=== PATIENT | female | born 1940 | race Caucasian/White ===

== ENCOUNTER → 2016-10-15 | Outpatient (CLI) | payer OTHER, MEDICARE ==
[~2016-10-15] MED LIST: ASCA500 PO; ASPEC81 PO; CHOL100010 PO; CLTP PO; COEN100C15 PO; FLUR100T PO; FOLI5CAP PO; HYDR25TA4 PO; LPT/40 PO; METH2.5T PO; METO50TA7 PO; MULT-506 PO; PRED-301 PO; RIVA1TAB4 PO; RQP/5 PO; TRAM-453 PO; XRL15 PO
--- NOTE | 2016-10-15 12:10 | MAMMOGRAPHY REPORT ---
BILATERAL DIGITAL SCREENING MAMMOGRAM WITH CAD: 10/15/2016 CLINICAL HISTORY: Routine screening. Patient has no complaints. TECHNIQUE: Bilateral CC and MLO views were obtained. Current study was also evaluated with a Compute r Aided Detection (CAD) system. COMPARISON: Comparison is made to exams dated: 10/14/2015 mammogram, 10/10/2014 mammogram, 10/09/2013 m ammogram, 10/05/2012 mammogram, 10/05/2011 mammogram, and 10/01/2010 mammogram - [facility] ter. BREAST COMPOSITION: The tissue of both breasts is heterogeneously dense, which may obscure small mas ses. FINDINGS: There is an asymmetry in the upper outer middle to posterior right breast, for which addit ional spot compression Devonte indicis views and possibly ultrasound are recommended, although this co uld represent normal overlapping tissue. There are mild vascular calcifications bilaterally. A linear metallic density is again seen in the l ower inner right breast. No other suspicious mass, architectural distortion or cluster of microcalci fications is seen bilaterally. IMPRESSION: ACR BI-RADS CATEGORY 0: INCOMPLETE EVALUATION: NEED ADDITIONAL IMAGING EVALUATION The asymmetry in the right upper outer breast needs additional imaging evaluation. The patient will be called to schedule an appointment. Approximately 10% of breast cancers are not detected with mammography. A negative mammographic report should not delay biopsy if a clinically suggestive mass is present. Dina Bernal M.D. ay/:10/15/2016 09:02:48 Interior Block Wirer: Nighat MCBRIDE(R)(M), [facility] letter sent: Addl Imaging 0 BI-RADS Code: ACR BI-RADS Category 0: Incomplete Evaluation: Need Additional Imaging Evaluation
== END | disposition home or self-care (01) ==
LOC: C.MAMM 08:26
PROVIDERS: ATTEND Family Medicine
DX: Z12.31 Encounter for screening mammogram for malignant neoplasm of breast (principal)

== ENCOUNTER → 2016-10-26 | Outpatient (CLI) | payer OTHER, MEDICARE ==
--- NOTE | 2016-10-26 14:05 | MAMMOGRAPHY REPORT ---
UNILATERAL RIGHT DIGITAL DIAGNOSTIC MAMMOGRAM TOMOSYNTHESIS AND TARGETED RIGHT ULTRASOUND: 10/26/2016 CLINICAL HISTORY: 75-year-old woman called back from screening mammography for an asymmetry in the up per outer quadrant of the right breast. TECHNIQUE: Spot compression right CC and MLO 2-D and tomosynthesis images were obtained. COMPARISON: Comparison is made to exams dated: 10/15/2016 mammogram, 10/10/2014 mammogram, 10/14/2015 m ammogram, 10/09/2013 mammogram, 10/05/2012 mammogram, and 10/05/2011 mammogram - [facility]. BREAST COMPOSITION: The tissue of the right breast is heterogeneously dense, which may obscure small masses. FINDINGS: There is effacement of the asymmetry in the lateral right breast in the superior right [address] st on the supplemental spot compression views and corresponding tomosynthesis images. In the visuali zed right breast, there is no focal area of architectural distortion, persistent mass or suspicious m icrocalcifications. A linear metallic density is again seen in the lower inner quadrant. Targeted ultrasound was performed throughout the superior and lateral right breast. Normal fibroglan dular tissue is seen without a discrete solid or cystic mass. IMPRESSION: ACR BI-RADS CATEGORY 2: BENIGN, TARGETED ULTRASOUND ACR BI-RADS CATEGORY 2: BENIGN Effacement of the right breast asymmetry, and no suspicious sonographic correlate identified. There is no mammographic or targeted sonographic evidence of malignancy. Return to annual mammogram screeni ng schedule is recommended. The patient has been verbally notified of the results. Approximately 10% of breast cancers are not detected with mammography. A negative mammographic report should not delay biopsy if a clinically suggestive mass is present. Dina Bernal M.D. ay/:10/26/2016 10:05:54 Cloth Colors Examiner: Nighat MCBRIDE(Kimber)(Deya), [facility] letter sent: Normal 1/2 BI-RADS Code: ACR BI-RADS Category 2: Benign Ultrasound BI-RADS: ACR BI-RADS Category 2: Benign
== END | disposition home or self-care (01) ==
LOC: C.MAMM 09:25
PROVIDERS: ATTEND Family Medicine
DX: N64.89 Other specified disorders of breast (principal)

== ENCOUNTER → 2017-10-20 | Outpatient (CLI) | payer OTHER, MEDICARE ==
[~2017-10-20] MED LIST changes: -METO50TA7 PO; +METO50TA8 PO
--- NOTE | 2017-10-21 07:55 | MAMMOGRAPHY REPORT ---
BILATERAL DIGITAL SCREENING MAMMOGRAM TOMOSYNTHESIS WITH CAD: 10/20/2017 CLINICAL HISTORY: Routine screening. TECHNIQUE: The study was acquired using full field digital technology and interpreted from soft copy. Breast tomosynthesis in addition to standard 2D mammography was performed. Current study was also ev aluated with a Computer Aided Detection (CAD) system. COMPARISON: Comparison is made to exams dated: 10/26/2016 mammogram, 10/15/2016 mammogram, 10/14/2015 m ammogram, and 10/10/2014 mammogram - [facility]. BREAST COMPOSITION: The tissue of both breasts is heterogeneously dense, which may obscure small mass es. FINDINGS: There are stable postsurgical changes in the lower inner right breast, with expected dalton ectural distortion and a linear metallic density remaining in the posterior right lower inner quadran t. There is stable asymmetry in the lateral right breast. Minimal vascular calcification bilaterall y. No suspicious mass, architectural distortion or cluster of microcalcifications is seen. IMPRESSION: ACR BI-RADS CATEGORY 1: NEGATIVE There is no mammographic evidence of malignancy. A 1 year screening mammogram is recommended.( 019) The patient will receive written notification of the results. Some breast cancers are not detected with mammography. A negative mammographic report should not joselito y biopsy if a clinically suggestive mass is present. Dina Bernal M.D. ay/:10/20/2017 09:29:06 Support Director: RT Naresh(Kimber)(M), [facility] letter sent: Normal 1/2 BI-RADS Code: ACR BI-RADS Category 1: Negative
== END | disposition home or self-care (01) ==
LOC: C.MAMM 08:18
PROVIDERS: ATTEND Family Medicine
DX: Z12.31 Encounter for screening mammogram for malignant neoplasm of breast (principal)

== ENCOUNTER 2017-11-03 08:29 | Emergency (ER) | payer OTHER, MEDICARE ==
[~2017-11-03] VITALS: Ht 149.9 cm; Wt 74.4 kg
[2017-11-03 08:33] VITALS: TEMP 36.7; Ht 149.9 cm; Wt 74.4 kg
[2017-11-03] MEDS ORDERED: MAGIC SWIZZLE PO STA (08:49)
--- NOTE | 2017-11-03 08:54 | EMERGENCY ROOM VISIT NOTE ---
History Report prepared by Tiffani: Toñito Donaldson Under the Supervision of: Dr. Ammon Brown M.D. First contact with patient: 08:40 Chief Complaint: FACIAL PAIN/INJURY Stated Complaint: COLD SORES History of Present Illness The patient is a 76 year old female who presents to the Emergency Room with complaints of worsening pain around her lips and the corners over her mouth that began on Wednesday, 5 days ago. The patient notes that her pain is worsened by trying to open her mouth. She also notes a headache, but denies any fevers. The patient does mention that she was at [facility] over the weekend and did not "wash her hands as much as she should have." Source of History: patient Onset: 5 days ago Position: lip Timing: worsening Modifying Factors (Worsening): other (opening her mouth) Associated Symptoms: + headache, No fevers Review of Systems See HPI for pertinent positives & negatives. A total of 10 systems reviewed and were otherwise negative. Past Medical & Surgical Medical Problems: (1) GERD (gastroesophageal reflux disease) (2) HLD (hyperlipidemia) (3) Palpitations (4) Pulmonary embolism (5) Rheumatoid arthritis (6) RLS (restless legs syndrome) Surgical Problems: (1) H/O colonoscopy (2) H/O knee surgery (3) H/O laminectomy (4) History of carpal tunnel surgery (5) S/P CHANNING-BSO Family History Heart disease Social History Smoking Status: Never Smoker Alcohol Use: none Drug Use: none Marital Status: Housing Status: lives with family Occupation Status: retired Current/Historical Medications Scheduled Ascorbic Acid (Vitamin C *), 1,000 MG PO BID Aspirin Enteric Coated (Ecotrin Or Generic *), 81 MG PO DAILY Atorvastatin (Lipitor), 40 MG PO DAILY Calcium/Vitamin D (Caltrate 600 Plus *), 1 TAB PO BID Cholecalciferol (Vitamin D), 1,000 INTER.UNIT PO DAILY Coenzyme Q10 (Ubidecarenone) (Co Q10), 1 CAP PO DAILY Flurbiprofen (Ansaid), 100 MG PO PRN Folic Acid (Folic Acid), 5 MG PO DAILY Hydrochlorothiazide (Hctz), 25 MG PO DAILY PRN Magic Swizzle (Magic Swizzle - SUCRALFA/ALUM/MAG/DIPHEN/LIDO), 3-4 TSP PO ACHS Methotrexate (Methotrexate), 7 TABLETS PO WK Metoprolol Succ (Toprol Xl) (Toprol-Xl), 50 MG PO DAILY Multivitamin (Multivitamin), 1 TAB PO DAILY Prednisone (Prednisone), 5 MG PO DAILY Rivaroxaban (Xarelto), 15 MG PO BID Rivaroxaban (Xarelto), 20 MG PO DAILY Ropinirole Hydrochloride (Requip), 0.25 MG PO HS Scheduled PRN Tramadol Hcl (Ultram), 1 TAB PO Q6H PRN for Pain Allergies Coded Allergies: Penicillins (Verified Allergy, Mild, RASH, 02/06/16) Baclofen (Verified Allergy, Unknown, DIZZY, 02/06/16) Sulfa Drugs (Verified Allergy, Unknown, HEADACHE, 02/06/16) Physical Exam Vital Signs Date Time Temp Pulse Resp B/P (MAP) Pulse Ox O2 Delivery O2 Flow Rate FiO2 11/03/17 09:22 67 18 160/82 96 Room Air 11/03/17 08:33 36.7 82 18 144/81 98 Room Air Physical Exam GENERAL: Awake, alert, well-appearing, in no acute distress HENT: Normocephalic, atraumatic. There are ulcerations to the inside of her lips , this does not cross beyond the lip itself. There are no oral lesions noted. EYES: Normal conjunctiva. Sclera non-icteric. NECK: Supple. No nuchal rigidity. FROM. No JVD. RESPIRATORY: Clear to auscultation. CARDIAC: Regular rate, normal rhythm. Extremities warm and well perfused. Pulses equal. ABDOMEN: Soft, non-distended. No tenderness to palpation. No rebound or guarding. No masses. RECTAL: Deferred. MUSCULOSKELETAL: Chest examination reveals no tenderness. The back is symmetrical on inspection without obvious abnormality. There is no CVA tenderness to palpation. No joint edema. LOWER EXTREMITIES: Calves are equal size bilaterally and non-tender. No edema. No discoloration. NEURO: Normal sensorium. No sensory or motor deficits noted. SKIN: No rash or jaundice noted. Medical Decision & Procedures Medications Administered Medications (Trade) Dose Ordered Sig/Harlan Route Start Time Stop Time Status Last Admin Dose Admin Lidocaine HCl/ Diphenhydramine HCl/Al Hydroxide/ Mg Hydroxide/ Glycerin/Barcode NOW ONCE MT 11/03/17 09:15 11/03/17 09:16 DC 11/03/17 09:22 5 ML ED Course 0843: Past medical records reviewed. The patient was evaluated in room A12B. A complete history and physical examination was performed. After examination I discussed my findings and treatment plan with the patient. She expressed agreement and understanding. The patient will be discharged home with specific instructions. Medical Decision Prior records/ancillary studies reviewed. Triage Nursing notes reviewed. Differential diagnosis: Etiologies such as viral syndrome, pharyngitis, Jose Luis Rodrigue's, influenza, meningitis, sepsis, bacteremia, as well as others were entertained. This is a 76-year-old female who presents emergency department complaining of rash to her lips. The patient has several crusted lesions present at her lips they do not cross the vermilion border. She has no rash to her hands or her feet. Discussing her presentation with the patient I noted I do not feel that this is Kovacs-Rodrigue syndrome however I strongly cautioned her she needs to return to the emergency department if the rash appears to be spreading and involves more of her oral mucosa. The patient is on methotrexate which could cause a Kovacs-Rodrigue. I otherwise suspect this is most likely a viral illness the patient reports she was at [facility] in [place] with her when this broke out several days later. She denies any stridor or wheezing or any other symptoms. We are going to trial the patient on Magic swizzle I again strongly recommended the patient return to the emergency department if the rash worsens. She is going to follow-up with her primary care physician. Medication Reconcilliation Current Medication List: was personally reviewed by me Blood Pressure Screening Patient's blood pressure: Elevated blood pressure Blood pressure disposition: Elevated BP felt to be situational Impression Primary Impression: Rash and nonspecific skin eruption Scribe Attestation The scribe's documentation has been prepared under my direction and personally reviewed by me in its entirety. I confirm that the note above accurately reflects all work, treatment, procedures, and medical decision making performed by me. Departure Information Dispostion Home / Self-Care Prescriptions Magic Swizzle (Magic Swizzle - SUCRALFA/ALUM/MAG/DIPHEN/LIDO) 240 Ml Susp 3-4 TSP PO ACHS, #240 ML 100ml Sucralfate 50ml Maalox 50ml Diphenhydramine 40ml 2% Aq. Lidocaine Swish and Swallow Prov: Ammon Brown MD 11/03/17 Referrals Shannon Malcolm M.D. (PCP) Forms HOME CARE DOCUMENTATION FORM, IMPORTANT VISIT INFORMATION Patient Instructions My [facility] Additional Instructions Follow up with DR Malcolm's office It is important that the exact type of rash is diagnosed by a doctor as the treatment can vary to some extent. For both contact dermatitis and perioral dermatitis, all topical applications should be stopped immediately. With contact dermatitis this may be sufficient for the rash to resolves quickly without any medical treatment. However, in perioral dermatitis the rash may sometimes continue even with discontinuing all creams, cosmetics and even soaps. Contact dermatitis is only treated when the symptoms are severe and not resolving with conservative measures. Corticosteroid creams may be prescribed for use on the skin. However, these creams should be avoided entirely in perioral dermatitis and there is often a history of abusing these creams. In severe cases of contact dermatitis oral corticosteroids may be considered for short term use until the symptoms ease. Perioral dermatitis is treated with antibiotics when the condition does not resolve with stopping all skin applications. A substance known as pimecrolimus may also be prescribed and this is also sometimes used in contact dermatitis. Isotretinoin, a drug that is more often used for acne, may also be prescribed for severe cases of perioral dermatitis but only when other measures have failed. It is important for perioral dermatitis sufferers to be aware that the condition can last for months or years without treatment. Even after the dermatitis subsides, skin applications may need to continue being avoided for an indefinite period of time. Sometimes what seems like extreme measures may need to be implemented like avoiding fluoridated toothpaste. It is important to follow a doctors advice closely when it comes to the treatment of perioral dermatitis. Scratching, pinching or picking the area can lead to secondary bacterial infections in both contact dermatitis and perioral dermatitis. It is therefore important that these actions be avoided and the hands be kept clean as much as possible in the even of unconscious touching of the affected area. Kovacs-Rodrigue syndrome signs and symptoms include: Fever Unexplained widespread skin pain A red or purple skin rash that spreads Blisters on your skin and the mucous membranes of your mouth, nose, eyes and genitals Shedding of your skin within days after blisters form If you have Kovacs-Rodrigue syndrome, several days before the rash develops you may experience: Fever Sore mouth and throat Fatigue Cough Burning eyes When to see a doctor Kovacs-Rodrigue syndrome requires immediate medical attention. Seek emergency medical care if you experience signs and symptoms of this condition. Request an Appointment at [facility] Causes Kovacs-Rodrigue syndrome is a rare and unpredictable reaction. Your doctor may not be able to identify its exact cause, but usually the condition is triggered by a medication or an infection. A reaction to medication may start while you' re using it or up to two weeks after you've stopped using it. Medication and therapy causes Drugs that can cause Kovacs-Rodrigue syndrome include: Anti-gout medications, such as allopurinol Medications to treat seizures and mental illness (anticonvulsants and antipsychotics), with added risk if you also undergo radiation therapy; Pain relievers, such as acetaminophen (Tylenol, others), ibuprofen (Advil, Motrin IB, others) and naproxen sodium (Aleve) Medications to fight infection, such as penicillin You have been examined and treated today on an emergency basis only. This is not a substitute for, or an effort to provide, complete comprehensive medical care. It is impossible to recognize and treat all injuries or illnesses in a single emergency department visit. It is therefore important that you follow up closely with Dr Malcolm. Call as soon as possible for an appointment. Thank you for your time and consideration. I look forward to speaking with you again soon. Please don't hesitate to call us if you have any questions.
[2017-11-03] MEDS ORDERED: MBXC PO (09:01)
[2017-11-03] MEDS ORDERED: LIDOCAINE HCL 2% VISCOUS SOLN 1.25 ML, DiphenhydrAMINE HCL SYRUP 3.125 MG, ALUMINUM/MAG... MT ONE ×4 (09:15)
[2017-11-03 09:22] VITALS: BP 160/82; PULSE 67; O2SAT 96
== END 2017-11-03 09:27 | disposition home or self-care (01) ==
LOC: C.EDB 08:31 → C.EDA 09:27
DX: R21 Rash and other nonspecific skin eruption (principal); G25.81 Restless legs syndrome; M06.9 Rheumatoid arthritis, unspecified; E78.5 Hyperlipidemia, unspecified; Z79.82 Long term (current) use of aspirin; Z79.01 Long term (current) use of anticoagulants; Z79.52 Long term (current) use of systemic steroids; Z88.0 Allergy status to penicillin; Z88.2 Allergy status to sulfonamides

== ENCOUNTER 2019-11-14 08:44 | Inpatient (IN) ==
[2019-11-14] MEDS ORDERED: PROMETHAZINE 6.25 MG/50.25 ML BAG IV STA (09:31)
--- NOTE | 2019-11-14 09:52 | Emergency Department Note ---
Impression & Plan Weakness, Ataxia, Acute UTI (urinary tract infection), Anemia, Headache ED Provider Note NAME: MARCELLA YOUNGBLOOD AGE: 78 SEX: F : 1940 ARRIVES VIA: Ambulance INFORMANT: Patient, ED PROVIDER(S): Valentin Castro DO CHIEF COMPLAINT: Weakness HPI: The patient is a 78-year-old female who presented to the emergency department by ambulance for an evaluation of weakness. The patient states that she went to get out of bed and fell. She states that she did not quite fall but rather lowered herself to the ground because of lower extremity weakness. She states that she was unable to get off the floor. While she was on the floor she started having episodes of nausea and vomiting. She had approximately 3 episodes of emesis. She then started to notice a headache across the right side of her forehead. She denies having any chest pain or difficulty breathing. She has no abdominal pain or diarrhea. She is had no fever or cough. The patient has not recently been seen by her primary care physician. She states her symptoms are moderately improved at this time but she still feels very weak especially in both lower extremities. The patient states that she does have a history of similar headaches in the past. She denies having any neck stiffness. She is had no dysuria or frequency. ROS: See above HPI for pertinent positives & negatives. A total of 10 systems reviewed and were otherwise negative. PAST MEDICAL HISTORY: See Below PAST SURGICAL HISTORY: See Below FAMILY HISTORY: See Below SOCIAL HISTORY: See Below HOME MEDICATIONS: See Below ALLERGIES: See Below VITALS: See Below PHYSICAL EXAMINATION: GENERAL: Patient is awake alert in no acute distress patient is resting comfortably and showing no signs of anxiety EYES: The conjunctivae are clear. The pupils are round and reactive. EARS, NOSE, MOUTH AND THROAT: The nose is without any evidence of any deformity. NECK: The neck is nontender and supple. RESPIRATORY: Normal respiratory effort is noted there is no evidence of wheezing rhonchi or rales CARDIOVASCULAR: Regular rate and rhythm was noted. There was a systolic murmur suggested to auscultation. GASTROINTESTINAL: The abdomen is soft. Abdomen is nontender. Rectal exam revealed brown stool which was heme-negative. MUSCULOSKELETAL/EXTREMITIES: There is no evidence of gross deformity full range of motion is noted in the hips and shoulders. SKIN: There is no obvious evidence of any rash. There are no petechiae, pallor or cyanosis noted. NEUROLOGIC: Patient is awake alert and oriented x3. Strength is symmetric but diminished. She is able to hold each leg off the bed for greater than 5 seconds. Telephone Exchange Operator strength is symmetric. There is no facial droop noted. MEDICAL DECISION MAKING: The patient is a 78-year-old female who presented to the emergency department with multiple complaints. The patient states that she had a near fall today where she lowered herself to the ground. She was unable to stand afterwards because of severe weakness in both lower extremities. The patient had no focal neurologic deficits but instead had generalized weakness. The patient was found to have anemia but was heme-negative stool from below. I discussed the patient's laboratory and radiographic studies with her. She was treated with IV fluids and IV antibiotics for presumed urinary tract infection. She was able to ambulate but appeared to have some degree of ataxia. The patient was treated with medication for headache and was feeling much better. Because of the patient's ambulatory status and her findings I discussed her case with the on- call [facility] hospitalist group. They have agreed to evaluate the patient in the emergency department for further management and disposition. Triage Nursing notes reviewed. Prior medical records reviewed Vital Signs: reviewed and remarkable for no significant abnormalities Differential diagnosis: Infection, dehydration, metabolic abnormality, hypo/hyperglycemia, electrolyte d isturbance, anemia, hypoxia, cardiac sources, intracerebral event, toxicologic, neurologic, as well as other pathologies. ER treatment provided: See below Diagnostics interpreted by me: ECG: EKG was obtained in the emergency department. My interpretation is sinus rhythm at 94 bpm. There was a first-degree AV block noted. LVH was noted by voltage criteria. This was compared to a tracing from July 01, 2018. No significant changes were noted. Cardiac Monitoring: An order was placed for continuous cardiac monitoring. The monitor shows a rate of 80 with sinus rhythm. Laboratory studies: As stated above and show below. Imaging studies: See below Consultation(s): 1220: [facility] COURSE: Procedures: none PDMP:reviewed and no issues Critical Care: None Past Med/Surg History Medical History Diverticular disease hx diverticulitis GERD (gastroesophageal reflux disease) History of DVT (deep vein thrombosis) a few years ago. remote h/o PE as well. on chcf anticoagulation HLD (hyperlipidemia) Paroxysmal SVT (supraventricular tachycardia) Rheumatoid arthritis RLS (restless legs syndrome) Severe aortic stenosis Surgical History H/O colonoscopy H/O knee surgery both knees, replacements H/O laminectomy History of carpal tunnel surgery both right and left History of tooth extraction upper and lower dentures S/P CHANNING-BSO Family History Other Heart disease Rheumatoid arthritis Social History Smoking Status: Former smoker Second Hand Exposure: No; Do You Dip or Chew Tobacco: No; Tobacco Cessation Education Requested by Patient: No Hx Alcohol Use: No Hx Substance Use: No Preferred Language: Yakut Communication Ability: Effective 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 Beliefs That Will Affect Care: Jewish Jewish Beliefs: Restoration Current Living Situation: Spouse Current Living Situation Comment: Lives with Other Information That Helps Us Care for You: No Feels Safe at Home: Yes Safety Concerns: Feels Safe At This Time Allergies Allergies Allergy/AdvReac Type Severity Reaction Status Date / Time Penicillins Allergy Mild RASH Verified 11/14/19 11:13 baclofen Allergy Unknown DIZZY Verified 11/14/19 11:13 Sulfa (Sulfonamide Allergy Unknown HEADACHE Verified 11/14/19 11:13 Antibiotics) Home Meds Home Medications Medication Instructions Recorded Confirmed aspirin 81 mg PO QAM 07/01/18 11/14/19 atorvastatin 40 mg PO 07/01/18 11/14/19 cholecalciferol (vitamin D3) 1,000 unit PO QAM 07/01/18 11/14/19 [Vitamin D3] coenzyme Q10 10 mg PO 07/01/18 11/14/19 hydrochlorothiazide 25 mg PO DAILY PRN 07/01/18 11/14/19 metoprolol succinate 50 mg PO BID 07/01/18 11/14/19 multivitamin 1 tab PO QAM 07/01/18 11/14/19 prednisone 5 mg PO QAM 07/01/18 11/14/19 warfarin 2.5 mg PO SUTUWETHSA@0800 07/01/18 11/14/19 clotrimazole-betamethasone 1 applic TOPICAL BID PRN 10/17/19 11/14/19 duloxetine [Cymbalta] 30 mg PO QAM 10/17/19 11/14/19 folic acid 1 mg PO QAM 10/17/19 11/14/19 leflunomide [Arava] 10 mg PO QAM 10/17/19 11/14/19 methotrexate sodium 10 mg PO FR 11/14/19 11/14/19 ropinirole 3 mg PO HS 11/14/19 11/14/19 warfarin 1.25 mg PO MOFR@0800 11/14/19 11/14/19 Results & Data (ED) Vital Signs Vital Signs - 24 hr 11/14/19 08:31 11/14/19 09:31 11/14/19 10:31 Temperature 36.8 C Temperature Source Oral Pulse Rate 97 H Pulse Rate [Apical] 88 Respiratory Rate 20 18 Blood Pressure 141/92 H Blood Pressure [Left Arm] 149/80 H Blood Pressure Mean 108 Blood Pressure Mean [Left Arm] 103 Pulse Oximetry 97 97 97 Oxygen Delivery Method Room Air Room Air Room Air Sepsis Recent Fever Within 48 Hours No Sepsis New/Unexplained Change in Mental Status N/A Sepsis Action Taken by Nursing No Action Required 11/14/19 12:00 Temperature Temperature Source Pulse Rate Pulse Rate [Apical] 81 Respiratory Rate Blood Pressure Blood Pressure [Left Arm] 128/81 Blood Pressure Mean Blood Pressure Mean [Left Arm] 96 Pulse Oximetry 97 Oxygen Delivery Method Room Air Sepsis Recent Fever Within 48 Hours Sepsis New/Unexplained Change in Mental Status Sepsis Action Taken by [facility] Medications Current Medication List: was personally reviewed by me Laboratory Data Attestation: I reviewed the patient's lab results. Result diagrams: 11/15/19 06:30 11/15/19 06:30 Lab Results 11/14/19 11/14/19 11/14/19 Range/Units 09:45 09:45 09:45 WBC 9.79 (4.8-10.8) K/uL RBC 3.33 L (4.2-5.4) M/uL Hgb 10.9 L (12.0-16.0) g/dL Hct 32.4 L (37-47) % MCV 97.3 (80-100) fL MCH 32.7 (25-34) pg MCHC 33.6 (32-36) g/dL RDW Std Deviation 51.2 H (36.4-46.3) fL RDW Coeff of Keila 14.9 H (11.5-14.5) % Plt Count 173 (130-400) K/uL MPV 9.7 (7.4-10.4) fL Immature Gran % (Auto) 0.1 % Neut % (Auto) 84.1 % Lymph % (Auto) 6.0 % [place] % (Auto) 8.9 % Eos % (Auto) 0.7 % Baso % (Auto) 0.2 % Neut # (Auto) 8.23 H (1.4-6.5) K/uL Lymph # (Auto) 0.59 L (1.2-3.4) K/uL [place] # (Auto) 0.87 H (0.11-0.59) K/uL Eos # (Auto) 0.07 (0-0.5) K/uL Baso # (Auto) 0.02 (0-0.2) K/uL Immature Gran # (Auto) 0.01 (0.00-0.02) K/uL PT 17.1 H (9.0-12.0) Seconds INR 1.7 H (0.9-1.1) APTT 29.7 (21.0-31.0) Seconds PTT Ratio 1.1 Sodium 140 (136-145) mmol/L Potassium 3.6 (3.5-5.1) mmol/L Chloride 110 H (98-107) mmol/L Carbon Dioxide 26 (21-32) mmol/L Anion Gap 4.0 (3-11) BUN 14 (7-18) mg/dl Creatinine 0.81 (0.6-1.2) mg/dl Est Cr Clr Drug Dosing 46.0 ml/min Est GFR ( Amer) 80.1 Est GFR (Non-Af Amer) 69.1 BUN/Creatinine Ratio 17.9 (10-20) Glucose 89 (70-99) mg/dl Estimat Average Glucose mg/dl Hemoglobin A1c (4.5-5.6) % Calcium 7.8 L (8.5-10.1) mg/dl Magnesium 1.8 (1.8-2.4) mg/dl Total Bilirubin 0.8 (0.2-1) mg/dl AST 26 (15-37) U/L ALT 25 (12-78) U/L Alkaline Phosphatase 85 (45-117) U/L Troponin I 0.021 (0-0.045) ng/ml Total Protein 6.2 L (6.4-8.2) gm/dl Albumin 2.9 L (3.4-5.0) gm/dl Globulin 3.3 (2.5-4.0) gm/dl Albumin/Globulin Ratio 0.9 (0.9-2) TSH 1.490 (0.300-4.500) uIu/ml Urine Color Urine Appearance (Clear) Urine pH (4.5-7.5) Ur Specific [place] (1.000-1.030) Urine Protein (Negative) Urine Glucose (UA) (Negative) Urine Ketones (Negative) Urine Blood (Negative) Urine Nitrite (Negative) Urine Bilirubin (Negative) Urine Urobilinogen (Negative) Ur Leukocyte Esterase (Negative) Urine WBC (Auto) (0-5) /hpf Urine RBC (Auto) (0-4) /hpf U Hyaline Cast (Auto) (0-5) /lpf U Epithel Cells (Auto) (0-5) /lpf Urine Bacteria (Auto) (Negative) Anaplasma Smear Lyme Disease IgG Ab (Negative) Lyme Disease IgM Ab (Negative) 11/14/19 11/14/19 11/14/19 Range/Units 09:45 09:45 09:45 WBC (4.8-10.8) K/uL RBC (4.2-5.4) M/uL Hgb (12.0-16.0) g/dL Hct (37-47) % MCV (80-100) fL MCH (25-34) pg MCHC (32-36) g/dL RDW Std Deviation (36.4-46.3) fL RDW Coeff of Keila (11.5-14.5) % Plt Count (130-400) K/uL MPV (7.4-10.4) fL Immature Gran % (Auto) % Neut % (Auto) % Lymph % (Auto) % [place] % (Auto) % Eos % (Auto) % Baso % (Auto) % Neut # (Auto) (1.4-6.5) K/uL Lymph # (Auto) (1.2-3.4) K/uL [place] # (Auto) (0.11-0.59) K/uL Eos # (Auto) (0-0.5) K/uL Baso # (Auto) (0-0.2) K/uL Immature Gran # (Auto) (0.00-0.02) K/uL PT (9.0-12.0) Seconds INR (0.9-1.1) APTT (21.0-31.0) Seconds PTT Ratio Sodium (136-145) mmol/L Potassium (3.5-5.1) mmol/L Chloride (98-107) mmol/L Carbon Dioxide (21-32) mmol/L Anion Gap (3-11) BUN (7-18) mg/dl Creatinine (0.6-1.2) mg/dl Est Cr Clr Drug Dosing ml/min Est GFR ( Amer) Est GFR (Non-Af Amer) BUN/Creatinine Ratio (10-20) Glucose (70-99) mg/dl Estimat Average Glucose 108 mg/dl Hemoglobin A1c 5.4 (4.5-5.6) % Calcium (8.5-10.1) mg/dl Magnesium (1.8-2.4) mg/dl Total Bilirubin (0.2-1) mg/dl AST (15-37) U/L ALT (12-78) U/L Alkaline Phosphatase (45-117) U/L Troponin I (0-0.045) ng/ml Total Protein (6.4-8.2) gm/dl Albumin (3.4-5.0) gm/dl Globulin (2.5-4.0) gm/dl Albumin/Globulin Ratio (0.9-2) TSH (0.300-4.500) uIu/ml Urine Color Urine Appearance (Clear) Urine pH (4.5-7.5) Ur Specific Social Circle (1.000-1.030) Urine Protein (Negative) Urine Glucose (UA) (Negative) Urine Ketones (Negative) Urine Blood (Negative) Urine Nitrite (Negative) Urine Bilirubin (Negative) Urine Urobilinogen (Negative) Ur Leukocyte Esterase (Negative) Urine WBC (Auto) (0-5) /hpf Urine RBC (Auto) (0-4) /hpf U Hyaline Cast (Auto) (0-5) /lpf U Epithel Cells (Auto) (0-5) /lpf Urine Bacteria (Auto) (Negative) Anaplasma Smear See Comment Lyme Disease IgG Ab Negative (Negative) Lyme Disease IgM Ab Negative (Negative) 11/14/19 Range/Units 11:00 WBC (4.8-10.8) K/uL RBC (4.2-5.4) M/uL Hgb (12.0-16.0) g/dL Hct (37-47) % MCV (80-100) fL MCH (25-34) pg MCHC (32-36) g/dL RDW Std Deviation (36.4-46.3) fL RDW Coeff of Keila (11.5-14.5) % Plt Count (130-400) K/uL MPV (7.4-10.4) fL Immature Gran % (Auto) % Neut % (Auto) % Lymph % (Auto) % [place] % (Auto) % Eos % (Auto) % Baso % (Auto) % Neut # (Auto) (1.4-6.5) K/uL Lymph # (Auto) (1.2-3.4) K/uL [place] # (Auto) (0.11-0.59) K/uL Eos # (Auto) (0-0.5) K/uL Baso # (Auto) (0-0.2) K/uL Immature Gran # (Auto) (0.00-0.02) K/uL PT (9.0-12.0) Seconds INR (0.9-1.1) APTT (21.0-31.0) Seconds PTT Ratio Sodium (136-145) mmol/L Potassium (3.5-5.1) mmol/L Chloride (98-107) mmol/L Carbon Dioxide (21-32) mmol/L Anion Gap (3-11) BUN (7-18) mg/dl Creatinine (0.6-1.2) mg/dl Est Cr Clr Drug Dosing ml/min Est GFR ( Amer) Est GFR (Non-Af Amer) BUN/Creatinine Ratio (10-20) Glucose (70-99) mg/dl Estimat Average Glucose mg/dl Hemoglobin A1c (4.5-5.6) % Calcium (8.5-10.1) mg/dl Magnesium (1.8-2.4) mg/dl Total Bilirubin (0.2-1) mg/dl AST (15-37) U/L ALT (12-78) U/L Alkaline Phosphatase (45-117) U/L Troponin I (0-0.045) ng/ml Total Protein (6.4-8.2) gm/dl Albumin (3.4-5.0) gm/dl Globulin (2.5-4.0) gm/dl Albumin/Globulin Ratio (0.9-2) TSH (0.300-4.500) uIu/ml Urine Color Yellow Urine Appearance Clear (Clear) Urine pH 6.5 (4.5-7.5) Ur Specific Social [place] 1.012 (1.000-1.030) Urine Protein Negative (Negative) Urine Glucose (UA) Negative (Negative) Urine Ketones Negative (Negative) Urine Blood Negative (Negative) Urine Nitrite Positive A (Negative) Urine Bilirubin Negative (Negative) Urine Urobilinogen Negative (Negative) Ur Leukocyte Esterase Trace H (Negative) Urine WBC (Auto) 10-30 H (0-5) /hpf Urine RBC (Auto) 0-4 (0-4) /hpf U Hyaline Cast (Auto) 0 (0-5) /lpf U Epithel Cells (Auto) 20-30 H (0-5) /lpf Urine Bacteria (Auto) 1+ H (Negative) Anaplasma Smear Lyme Disease IgG Ab (Negative) Lyme Disease IgM Ab (Negative) Administered Medications Atorvastatin Calcium (Atorvastatin 40 Mg Tab) 40 mg PO HS STEPHANIE Stop: 12/14/19 20:59 Last Admin: 11/14/19 20:44 Dose: 40 mg Documented by: [id number] Parenteral Electrolytes (Normosol-R) 1,000 mls @ 50 mls/hr IV .Q20H ONE Stop: 11/16/19 00:32 Last Admin: 11/15/19 05:33 Dose: 50 mls/hr Documented by: [id number] Cefepime HCl 2,000 mg/ Syringe 20 mls @ 5 mls/min IV Q12H STEPHANIE Stop: 11/25/19 05:59 Last Admin: 11/15/19 05:34 Dose: 5 mls/min Documented by: [id number] Daptomycin 350 mg/ Syringe 7 mls @ 0 mls/min IV Q24H STEPHANIE; Protocol Stop: 11/25/19 04:59 Last Admin: 11/15/19 05:34 Dose: 3.5 mls/min Documented by: [id number] Metoprolol Succinate (Metoprolol Succ 50mg Ext Rel Tab) 50 mg PO BID [facility] Stop: 12/15/19 04:29 Last Admin: 11/15/19 05:36 Dose: 50 mg Documented by: [id number] Ropinirole HCl (Ropinirole Hcl 1 Mg Tablet) 3 mg PO HS STEPHANIE Stop: 12/14/19 20:59 Last Admin: 11/14/19 22:33 Dose: 3 mg Documented by: [id number] Warfarin Sodium (Warfarin Sod 2.5 Mg Tab) 2.5 mg PO [id number] [facility] Stop: 12/14/19 15:59 Last Admin: 11/14/19 17:57 Dose: 2.5 mg Documented by: [id number] Discontinued Medications Acetaminophen (Acetaminophen 325 Mg Tab) 650 mg PO NOW STA Stop: 11/15/19 04:31 Last Admin: 11/15/19 05:36 Dose: Not Given Documented by: [id number] Gadobutrol (Gadobutrol 65ml Vial) 5.8 ml IV ONCE ONE Stop: 11/14/19 16:45 Last Admin: 11/14/19 16:44 Dose: 5.8 ml Documented by: [id number] Promethazine HCl (Phenergan) 6.25 mg in 50.25 mls @ 201 mls/hr IV NOW STA Stop: 11/14/19 09:45 Last Infusion: 11/14/19 10:08 Dose: 0 mls/hr Documented by: [id number] Admin: 11/14/19 09:52 Dose: 201 mls/hr Documented by: [id number] Ceftriaxone Sodium (Rocephin) 1,000 mg in 50 mls @ 100 mls/hr IV NOW STA Stop: 11/14/19 12:05 Last Infusion: 11/14/19 12:22 Dose: 0 mls/hr Documented by: [id number] Admin: 11/14/19 11:52 Dose: 100 mls/hr Documented by: [id number] Sodium Chloride (Nss 1000ml) 1,000 mls @ 200 mls/hr IV .Q5H [facility] Stop: 11/14/19 20:44 Last Infusion: 11/14/19 22:34 Dose: 0 mls/hr Documented by: [id number] Admin: 11/14/19 17:11 Dose: 200 mls/hr Documented by: [id number] Magnesium Sulfate/Dextrose (Magnesium Sulfate / D5w) 1 gm in 100 mls @ 50 mls/hr IV Q2H STEPHANIE Stop: 11/14/19 20:29 Last Infusion: 11/14/19 20:43 Dose: 0 mls/hr Documented by: [id number] Admin: 11/14/19 17:11 Dose: 50 mls/hr Documented by: [id number] Infusion: 11/14/19 17:11 Dose: 50 mls/hr Documented by: [id number] Admin: 11/14/19 17:11 Dose: 50 mls/hr Documented by: [id number] Metoprolol Succinate (Metoprolol Succ 50mg Ext Rel Tab) 50 mg PO ONE ONE Stop: 11/14/19 18:16 Last Admin: 11/14/19 18:38 Dose: 50 mg Documented by: [id number] Potassium Chloride (Potassium Chloride 20 Meq Tabcr) 40 meq PO NOW STA Stop: 11/14/19 16:11 Last Admin: 11/14/19 17:57 Dose: 40 meq Documented by: [id number] Imaging Data Radiologist's Impression: CT head/brain wo con CLINICAL HISTORY: 78 years-old Female with kern. TECHNIQUE: Multiple axial CT images of the head were obtained without contrast. A dose lowering technique was utilized adhering to the principles of ALARA. CT DOSE: 690.05 mGycm COMPARISON: None. FINDINGS: No acute intracranial hemorrhage, midline shift, intracranial mass, hydrocephalus, territorial ischemia or abnormal extra-axial collection. Patchy white matter hypodensities suggest white matter disease. Mild age related involutional changes. The calvarium is intact. Prior lens replacement. Small mastoid effusions. IMPRESSION: No acute intracranial abnormality ACT 112: Negative or not required by law. The above report was generated using voice recognition software. It may contain grammatical, syntax or spelling errors. Electronically signed by: Henry Varner M.D. 11/14/2019 10:15 AM Dictated: 11/14/19 1004 Transcribed: 11/14/19 1004 SINGLE VIEW CHEST CLINICAL HISTORY: Generalized weakness. FINDINGS: An AP, portable, upright chest radiograph is compared to study dated 07/01/2018 and correlated with chest CT dated 05/31/2019. The examination is degraded by portable technique and patient rotation. The heart is enlarged noting atherosclerotic calcification of the thoracic aorta. The pulmonary vasculature is noncongested. Chronic interstitial thickening is similar to previous. Scarring/atelectasis is noted at the left lung base. No airspace consolidation or large pleural effusion is identified. No pneumothorax is seen. The skeletal structures are osteopenic. The bony thorax is grossly intact. IMPRESSION: Cardiomegaly with no active disease in the chest. ACT 112: Negative or not required by law. Electronically signed by: Vitaliy Tate M.D. 11/14/2019 9:52 AM Dictated: 11/14/19 0950 Transcribed: 11/14/19 0950 Blood Pressure Blood Pressure Findings: Normal blood pressure Discharge Plan Visit Data Chief Complaint: Vomiting ED Provider: Valentin Castro Discharge Problem: Weakness, Ataxia, Acute UTI (urinary tract infection), Anemia, Headache Patient Disposition: Admitted As Inpatient Condition: Good Discharge Instructions Interventions: ED Discharge Assessment Last Done: 11/14/19 13:16 Discharge Problem: Anemia Qualifiers: Anemia type: unspecified type Qualified Code(s): D64.9 - Anemia, unspecified
--- NOTE | 2019-11-14 09:53 | XRay Report ---
SINGLE VIEW CHEST CLINICAL HISTORY: Generalized weakness. FINDINGS: An AP, portable, upright chest radiograph is compared to study dated 07/01/2018 and correlate d with chest CT dated 05/31/2019. The examination is degraded by portable technique and patient rotatio n. The heart is enlarged noting atherosclerotic calcification of the thoracic aorta. The pulmonary va sculature is noncongested. Chronic interstitial thickening is similar to previous. Scarring/atelectas is is noted at the left lung base. No airspace consolidation or large pleural effusion is identified. No pneumothorax is seen. The skeletal structures are osteopenic. The bony thorax is grossly intact. IMPRESSION: Cardiomegaly with no active disease in the chest. ACT 112: Negative or not required by law. Electronically signed by: Vitaliy Tate M.D. 11/14/2019 9:52 AM
[2019-11-14 10:02] LABS: Basophils # (auto) 0.02 K/uL (0-0.2); Basophils % (auto) 0.2 %; Eosinophils # (auto) 0.07 K/uL (0-0.5); Eosinophils % (auto) 0.7 %; Hematocrit (blood only) 32.4 % (37-47); Hemoglobin 10.9 g/dL (12.0-16.0); Immature Granulocytes # (auto) 0.01 K/uL (0.00-0.02); Immature Granulocytes % (auto) 0.1 %; Lymphocytes # (auto) 0.59 K/uL (1.2-3.4); Mean Corpuscular Hemoglobin 32.7 pg (25-34); Mean Corpuscular Hgb Conc 33.6 g/dL (32-36); Mean Corpuscular Volume 97.3 fL (80-100); Mean Platelet Volume 9.7 fL (7.4-10.4); Monocytes # (auto) 0.87 K/uL (0.11-0.59); Monocytes % (auto) 8.9 %; Neutrophils # (auto) 8.23 K/uL (1.4-6.5); Neutrophils % (auto) 84.1 %; Platelet Count 173 K/uL (130-400); RDW Coefficient of Variation 14.9 % (11.5-14.5); RDW Standard Deviation 51.2 fL (36.4-46.3); Red Blood Count 3.33 M/uL (4.2-5.4); White Blood Count 9.79 K/uL (4.8-10.8)
[2019-11-14 10:13] LABS: INR 1.7 (0.9-1.1); Partial Thromboplastin Ratio 1.1; Partial Thromboplastin Time 29.7 Seconds (21.0-31.0); Prothrombin Time 17.1 Seconds (9.0-12.0)
--- NOTE | 2019-11-14 10:16 | CT Scan Report ---
CT head/brain wo con CLINICAL HISTORY: 78 years-old Female with kern. TECHNIQUE: Multiple axial CT images of the head were obtained without contrast. A dose lowering tech nique was utilized adhering to the principles of ALARA. CT DOSE: 690.05 mGycm COMPARISON: None. FINDINGS: No acute intracranial hemorrhage, midline shift, intracranial mass, hydrocephalus, territorial ischem ia or abnormal extra-axial collection. Patchy white matter hypodensities suggest white matter disease . Mild age related involutional changes. The calvarium is intact. Prior lens replacement. Small mastoid effusions. IMPRESSION: No acute intracranial abnormality ACT 112: Negative or not required by law. The above report was generated using voice recognition software. It may contain grammatical, syntax o r spelling errors. Electronically signed by: Henry Varnre M.D. 11/14/2019 10:15 AM
[2019-11-14 10:19] LABS: Albumin Level 2.9 gm/dl (3.4-5.0); BUN Creatinine Ratio 17.9 (10-20); Calcium 7.8 mg/dl (8.5-10.1); Est GFR (African American) 80.1; Est GFR (Non-African American) 69.1; Magnesium 1.8 mg/dl (1.8-2.4); Potassium 3.6 mmol/L (3.5-5.1)
[2019-11-14 10:30] LABS: Albumin Globulin Ratio 0.9 (0.9-2); Bilirubin,Total 0.8 mg/dl (0.2-1); Globulin 3.3 gm/dl (2.5-4.0); Thyroid Stimulating Hormone 1.49 uIu/ml (0.300-4.500); Total Protein 6.2 gm/dl (6.4-8.2); Troponin I 0.021 ng/ml (0-0.045)
[2019-11-14 11:20] LABS: Appearance Urine Clear (Clear); Bacteria Urine Automated 1+ (Negative); Bilirubin Urine Negative (Negative); Blood Urine Negative (Negative); Cast Urine Automated 0 /lpf (0-5); Color Urine Yellow; Epithelial Cell Urine Auto 20-30 /lpf (0-5); Glucose Urine UA Negative (Negative); Ketones Urine Negative (Negative); Leukocyte Esterase Urine Trace (Negative); Nitrite Urine Positive (Negative); Protein Urine Negative (Negative); RBC Urine Automated 0-4 /hpf (0-4); Specific Gravity Urine 1.012 (1.000-1.030); Urobilinogen Urine Negative (Negative); pH Urine 6.5 (4.5-7.5)
[2019-11-14] MEDS ORDERED: cefTRIAXone SODIUM 1,000 MG/50 ML BAG IV STA (11:36)
--- NOTE | 2019-11-14 13:08 | Electrocardiogram Report ---
Test Reason : Blood Pressure : / mmHG Vent. Rate : 094 BPM Atrial Rate : 094 BPM P-R Int : 214 ms QRS Dur : 072 ms QT Int : 348 ms P-R-T Axes : 048 -22 078 degrees QTc Int : 435 ms Sinus rhythm with 1st degree A-V block Left ventricular hypertrophy with repolarization abnormality Abnormal ECG When compared with ECG of 01-JUL-2018 12:01, T wave inversion no longer evident in Inferior leads Confirmed by Valentin Hinton ([id number]) on 11/14/2019 1:07:25 PM Referred By: Confirmed By:Valentin Hinton
--- NOTE | 2019-11-14 14:03 | History & Physical Report ---
Date of Service November 14, 2019 Assessment & Plan (1) Ataxia: (2) Weakness: This is a 78-year-old female with PMH of severe aortic valve stenosis, hyperlipidemia, history of paroxysmal SVT, rheumatoid arthritis on prednisone, history of PE on Coumadin, RLS and other medical problems listed below who presents with worsening generalized weakness and abnormal gait x 6 weeks. -Concern for cerebellar cva in setting of progressively worsening weakness over the past month. Noted to have right-leaning ataxic gait today and slight LLE weakness. Also with headache and vomiting this morning. MRI brain w/wo ordered. Awaiting neuro for further recommendations. Neuro checks, continue aspirin and statin and plan to add plavix -Also likely that weakness is been exacerbated by acute UTI. Expect improvement with antibiotic therapy. Awaiting PT/OT evaluation (3) Acute UTI (urinary tract infection): Abnormal UA. Culture pending. Continue empiric Rocephin (4) History of DVT (deep vein thrombosis): On Coumadin for history of DVT and PE in the past. Continue Coumadin dose and repeat INR tomorrow (5) Anemia: (6) Rheumatoid arthritis: Continue weekly methotrexate, Arava, prednisone (7) Paroxysmal SVT (supraventricular tachycardia): Currently in sinus rhythm. Continue metoprolol succinate (8) Severe aortic stenosis: HANS from last month demonstrating severe aortic stenosis. Seeing Dr. Ware of cardiology next week for possible aortic valve replacement (9) RLS (restless legs syndrome): Continue Requip. Prescribed to take 1mg TID but reports taking all 3 pills at night-? Will try to clarify safe dose (10) HLD (hyperlipidemia): Continue statin DVT Ppx: Continue coumadin Code status:FULL PCP: Kenyetta Colbert Dispo: Admit to med tele Patient seen in collaboration with Dr. Hale. Please see addendum. History of Present Illness Chief Complaint: Generalized weakness, unstable gait, UTI Primary Care Provider: Shea Colbert DO This is a 78-year-old female with PMH of severe aortic valve stenosis, hyperlipidemia, history of paroxysmal SVT, rheumatoid arthritis on prednisone, history of PE on Coumadin, RLS and other medical problems listed below who presents with worsening generalized weakness and abnormal gait x 6 weeks. Initially noticed this in mid September and continues to feel weak and unsteady with ambulation. Does use a cane, but still feels that left leg "does not cooperate" and has had a few falls. Earlier today, felt weak getting out of bed and slid back to a seated position on her bed. Also endorses some lightheadedness and palpitations yesterday that have since resolved. Had a frontal headache this morning with 4 episodes of emesis and 1 of diarrhea. Headache and nausea have resolved with promethazine in the ED. Denies any fever or chills. No known COVID exposure. Denies any speaking or swallowing difficulties. Denies facial droop. No dizziness, chest pain, SOB, wheezing, abdominal pain, hematuria, constipation, hematochezia. Does have plans for evaluation with Dr. Ware of [facility] cardiology next week for possible aortic valve replacement. Allergies Allergy/AdvReac Type Severity Reaction Status Date / Time Penicillins Allergy Mild RASH Verified 11/14/19 11:13 baclofen Allergy Unknown DIZZY Verified 11/14/19 11:13 Sulfa (Sulfonamide Allergy Unknown HEADACHE Verified 11/14/19 11:13 Antibiotics) Home Medications Home Medications Medication Instructions Recorded Confirmed Type aspirin 81 mg PO QAM 07/01/18 11/14/19 History atorvastatin 40 mg PO HS 07/01/18 11/14/19 History cholecalciferol (vitamin D3) 1,000 unit PO QAM 07/01/18 11/14/19 History [Vitamin D3] coenzyme Q10 10 mg PO HS 07/01/18 11/14/19 History hydrochlorothiazide 25 mg PO DAILY PRN 07/01/18 11/14/19 History metoprolol succinate 50 mg PO BID 07/01/18 11/14/19 History multivitamin 1 tab PO QAM 07/01/18 11/14/19 History prednisone 5 mg PO QAM 07/01/18 11/14/19 History warfarin 2.5 mg PO SUTUWETHSA@0800 07/01/18 11/14/19 History clotrimazole-betamethasone 1 applic TOPICAL BID PRN 10/17/19 11/14/19 History duloxetine [Cymbalta] 30 mg PO QAM 10/17/19 11/14/19 History folic acid 1 mg PO QAM 10/17/19 11/14/19 History leflunomide [Arava] 10 mg PO QAM 10/17/19 11/14/19 History methotrexate sodium 10 mg PO FR 11/14/19 11/14/19 History ropinirole 0.5 mg PO HS 11/14/19 11/14/19 History warfarin 1.25 mg PO MOFR@0800 11/14/19 11/14/19 History Past Med/Surg History Medical History (Updated 11/14/19 @ 14:18 by Meka Jaramillo PA-C) Diverticular disease hx diverticulitis GERD (gastroesophageal reflux disease) History of DVT (deep vein thrombosis) a few years ago. remote h/o PE as well. on prison anticoagulation HLD (hyperlipidemia) Paroxysmal SVT (supraventricular tachycardia) Rheumatoid arthritis RLS (restless legs syndrome) Severe aortic stenosis Surgical History H/O colonoscopy H/O knee surgery both knees, replacements H/O laminectomy History of carpal tunnel surgery both right and left History of tooth extraction upper and lower dentures S/P CHANNING-BSO Family History Other Heart disease Rheumatoid arthritis Social History (Updated 11/14/19 @ 14:21 by Meka Jaramillo PA-C) Smoking Status: Former smoker Second Hand Exposure: No; Do You Dip or Chew Tobacco: No; Tobacco Cessation Education Requested by Patient: No Hx Alcohol Use: No Hx Substance Use: No Preferred Language: Divehi Communication Ability: Effective Lieutenant General Required: No Beliefs That Will Affect Care: Hinduism Hinduism Beliefs: Denominational Current Living Situation: Spouse Current Living Situation Comment: Lives with Other Information That Helps Us Care for You: No Feels Safe at Home: Yes Safety Concerns: Feels Safe At This Time Review of Systems Review of Systems: At least ten systems reviewed and negative except as noted in the HPI. Physical Exam Physical Exam: General Appearance: WD/WN, vitals as above, NAD, sitting up in bed, pleasant, conversing easily Head: normocephalic, atraumatic Eyes: normal inspection, PERRL, conjunctivae normal, anicteric sclerae ENT: external ear and nose normal, oropharynx normal Neck: trachea midline, no thyromegaly normal visual inspection Respiratory: normal respiratory effort, lungs clear to auscultation, no wheeze, rales, rhonchi. Normal insp/exp effort, no accessory muscle use Cardiovascular: regular rate, rhythm, + systolic murmur with radiation to bilateral carotids, normal peripheral pulses, trace BLE edema. Vessels: no JVD Chest: normal inspection of chest Abdomen/GI: normal bowel sounds, soft, nontender, no hepatosplenomegaly Extremities/Musculoskeletal: no cyanosis or clubbing, RUE,RLE and LUE strength 5/5. LLE strength 4/5 Neurologic: PERRL, EOMI, accommodation nl, no face palsy, no dysarthria, CN's II-XI intact bilaterally and moves all extremities. + Ataxic right-leaning gait, slow [id number] movements of LLE. Attempted Romberg's test but unable to balance with eyes open Psychiatric: A+Ox3, euthymic affect Skin: no rashes, normal color, warm/dry Results & Data Results & Data ([facility]) Vital Signs (Past 12 Hours) Vital Signs Temp Pulse Pulse Resp BP BP Pulse Ox 11/14/19 12:00 81 128/81 97 11/14/19 10:31 88 18 149/80 H 97 11/14/19 09:31 97 11/14/19 08:31 36.8 C 97 H 20 141/92 H 97 Laboratory Results Short CBC 11/14/19 Range/Units 09:45 WBC 9.79 (4.8-10.8) K/uL Hgb 10.9 L (12.0-16.0) g/dL Hct 32.4 L (37-47) % Plt Count 173 (130-400) K/uL BMP 11/14/19 09:45 Sodium 140 Potassium 3.6 Chloride 110 H Carbon Dioxide 26 BUN 14 Creatinine 0.81 Glucose 89 Calcium 7.8 L Cardiac Enzymes 11/14/19 Range/Units 09:45 Troponin I 0.021 (0-0.045) ng/ml Liver Function 11/14/19 Range/Units 09:45 Total Bilirubin 0.8 (0.2-1) mg/dl AST 26 (15-37) U/L ALT 25 (12-78) U/L Alkaline Phosphatase 85 (45-117) U/L Albumin 2.9 L (3.4-5.0) gm/dl Urine 11/14/19 Range/Units 11:00 Urine Color Yellow Urine Appearance Clear (Clear) Urine pH 6.5 (4.5-7.5) Ur Specific [place] 1.012 (1.000-1.030) Urine Protein Negative (Negative) Urine Glucose (UA) Negative (Negative) Diagnostic Findings Head CT: IMPRESSION: No acute intracranial abnormality CXR: IMPRESSION: Cardiomegaly with no active disease in the chest. 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 She reports worsening of generalized weakness and abnormal gait for at least a couple of weeks now. She did report an increase in urinary frequency especially overnight reporting getting up to urinate at least 3 times nightly. She denies any dysuria or fever. This generalized weakness has been intermittent over the last couple of weeks, however, this morning when she awoke she reported that her legs were so weak she could not stand up. As she tried to exit the bed she slid back to a seated position. Her son and grandson tried to lift her and pick her up but her legs were too weak to stand. She did lose control of her urine at this time and they called EMS. This weakness of her legs was significantly worse just this morning. She has had some difficulties with ambulation where she has a tendency to lean back or fall to the side. She typically ambulates with a cane but now has to hold onto the wall to get from point a to point B. She denies any change in appetite. She did report an episode of diarrhea yesterday morning. Additionally she decided on her own to change her ropinirole from 1 mg 3 times daily to 3 mg nightly. She did not inform her customs appraiser of this change which she did approximately 4 weeks ago. She does not have any acute stroke symptoms at this time aside from the disequilibrium and orthostasis. Orthostatic vital signs were positive with a 23 point drop from lying to standing and significant orthostasis in the standing position. For this reason she was unable to complete a Romberg test. She did also have some lightheadedness, denies any vertigo, but reported some nausea and several episodes of vomiting this morning. She also denies any chest pain or shortness of breath. Physical exam reveals 5 out of 5 strength throughout, 2/4 patellar reflexes, 2/4 brachioradialis reflexes. She denies any numbness or tingling but does have phenomena that are labeled as bright flashers on the lateral sides of the eye which have produced a frontal headache that is over these areas. The phenomena are described as bright circles that roll around and then subsequently resolve within a short period of time. Physical exam was otherwise within normal limits including normal respiratory exam without evidence of increased respiratory effort, and cardiac exam revealing a normal S1-S2 with a 3 out of 6 systolic ejection murmur and no peripheral edema. Agree with plan of continuing empiric Rocephin pending urine culture and clinical improvement. She is going to receive 1 bag of IV fluid to treat the orthostatic symptoms with supportive blood pressure results. With the clear disequilibrium while she ambulates and the inability to complete on Romberg based on lightheadedness, posterior stroke is considered. Agree with plan to order MRI with and without contrast and consult neurology. She is already taking a baby aspirin daily and she is on Coumadin although subtherapeutic at 1.7. Will hold on any further antiplatelet therapy until recommended by neurology who was consulted. Notably she is also taking atorvastatin 40 mg daily. Will order PT and OT consults, and admit patient for continued work-up of stroke and to monitor for improvement on antibiotics. She is not septic. DO Geoffrey (1) Anemia Anemia type: unspecified type Qualified Code(s): D64.9 - Anemia, unspecified
[2019-11-14] MEDS ORDERED: ONDANSETRON INJ 2 MG/ML 2 ML VIAL IV PRN (14:21)
[2019-11-14] MEDS ORDERED: PHARMACIST DISCHARGE MED REC CONSULT PRN (14:21)
[2019-11-14] MEDS ORDERED: ACETAMINOPHEN 325 MG TAB PO PRN (14:21)
[2019-11-14] MEDS ORDERED: POLYETHYLENE (MIRALAX) 17 GM PACK PO PRN (14:21)
[2019-11-14 14:38] LABS: Lyme Ab IgG w/WB Rflx Negative (Negative)
[2019-11-14 14:41] LABS: Lyme Ab IgM w/WB Rflx Negative (Negative)
[2019-11-14] MEDS ORDERED: SODIUM CHLORIDE 0.9% 1000ML 1,000 ML IV SCH (15:45)
[2019-11-14] MEDS ORDERED: POTASSIUM CHLORIDE 20 MEQ TABCR PO STA (16:10)
--- NOTE | 2019-11-14 16:26 | Communication Note ---
Date of Service: November 14, 2019 I saw Nasima today did a brief examination prior to her being taken down to the MRI scan, reviewed her chart and performed examination also dictated a cons ultation note but this will be completed until tomorrow. I am not sure what is going on but this sounds like a nonspecific generalized weakness syndrome of about 6 weeks duration perhaps exacerbated by what appears to be a urinary tract infection and complicated by the presence of recently diagnosed severe aortic stenosis and anemia presumptively due to her rheumatoid arthritis and chronic disease. Exam really does not show much of the mild gait apraxia and areflexia at the ankles with hyperreflexia at the knees with good strength and reasonably good sensation and no cranial neuropathies I have ordered a B12 a serum protein electrophoresis sed rate and a CPK is to round out some of the diagnostic considerations and will review her MRI tonight which may or may not show some new infarctions but I suspect will show a leukoencephalopathy and again impaired careful attention to the first 2 cervical vertebrae and odontoid she may have elements of a myelopathy here that are subtle and is at risk for odontoid instability due to her rheumatoid disease Felix Spencer MD
[2019-11-14] MEDS ORDERED: GADOBUTROL 65ML VIAL IV ONE (16:44)
--- NOTE | 2019-11-14 16:57 | Consultation Report ---
DATE OF CONSULTATION: 11/14/2019 CONSULTATION FOR: Zeynep Hale DO. HISTORY OF PRESENT ILLNESS: Nasima is 78 years old, has a history of severe aortic valve stenosis, dyslipidemia, paroxysmal supraventricular tachycardia, rheumatoid arthritis, on chronic prednisone, has a history of pulmonary embolism, on chronic Coumadin, restless legs syndrome, who presents with worsening generalized weakness and abnormal gait onset subacutely about 6 weeks ago and gradually worsening, without any particular history for headache, numbness, tingling, bowel or bladder dysfunction other than today when she has had some urinary frequency and a mild low-grade headache and has been found to have evidence for urinary tract infection. It is not clear whether her symptoms actually worsened today, but it seems like things have been progressively worse and may have stepped off a little more. She was brought to the Emergency Room. CAT scan showed a fair amount of leukoencephalopathy and she is en route to an MRI scan. I did have a chance to briefly examine and do a history before she went off for the study. Clinically, there was apparently some concern for cerebellar defects because of worsening weakness and some right leaning ataxia and some complaints of left lower extremity weakness, with a headache and vomiting this morning, but some of that may have been due to the urinary tract infection. Because of this, she has had an aspirin added to her Coumadin and a statin and perhaps she is going to add some Plavix. Other problems are pretty much as listed above. She does have a significant anemia, which has been felt to be due to her rheumatoid arthritis and she is on chronic weekly methotrexate. She does have severe aortic stenosis and she is seeing cardiology next month and may have an aortic valve replacement on febk. Certainly some of this can produce weakness and fatigue. She has restless legs syndrome, on Requip, but she takes all 3 of her pills at night. She also has dyslipidemia. ALLERGIES: INCLUDE PENICILLINS, BACLOFEN, SULFA. HOME MEDICATIONS: In addition to the Coumadin Include aspirin, atorvastatin, vitamin D3, Coenzyme Q10, hydrochlorothiazide, metoprolol, multivitamins, prednisone, Cymbalta, folic acid, Arava, methotrexate, Requip, and clotrimazole/betamethasone topical ointment. All of these are stable and no new medications have been added for some time. PAST MEDICAL HISTORY: In addition to the problems listed above, she does have diverticulitis or has had a history of it and GERD, has a history of DVT, dyslipidemia, paroxysmal supraventricular tachycardia, rheumatoid disease, restless legs and aortic stenosis. PAST SURGICAL HISTORY: Surgically, she has had a colonoscopy, knee surgery bilaterally, laminectomy, carpal tunnel surgery, dental extractions and CHANNING-BSO. FAMILY HISTORY: Positive for heart disease and rheumatoid disease. SOCIAL HISTORY: Reveals her to be a former smoker. She lives with her spouse. She is retired. REVIEW OF SYSTEMS: Systems review reveals generalized malaise, fatigue, gait disturbance and the recent fever or at least febrile sensations, headache, dysuria, nausea and vomiting and the progressive gait disturbance. Otherwise, there are no new specific complaints referable to head, eyes, ears, nose and throat, cardiovascular, pulmonary, gastrointestinal, genitourinary, musculoskeletal, dermatologic, or hematologic systems other than those covered under the history of present illness. PHYSICAL EXAMINATION: VITAL SIGNS: She was found to have a blood pressure of 141/92, pulse was 97. She was afebrile. Respirations were 18. GENERAL: She was short-statured, otherwise well developed, well nourished. HEENT: There was no evidence for cerebral trauma. There were no cranial deformities. No bruits were heard over the neck. Eye movements, gross visual acuity, dentition and mucosa were normal. LUNGS: Clear. HEART: Had a regular rate and rhythm. There was a systolic murmur radiating to both carotids. Peripheral pulses were present and equal. There was no significant edema. ABDOMEN: Soft, nontender. NEUROLOGIC: Today, she is awake, alert and oriented. She is a reasonably accurate historian. Facial motility and strength, facial sensation are normal. Speech is clear. Tongue protrudes in the midline. Neck flexion and extension induces no paresthesias in her arms or radicular pain in either arm and does not induce a Lhermitte's phenomenon. She has pretty good motor strength of the upper extremities and reasonably good facility of rapid repetitive motions on [id number] and [id number] testing. There may be some slight left-sided clumsiness, but this is pretty subtle. Gait is broad based, a little apractic, but there are good associated movements. There is no tremor, tics, choreiform activity, drift or pronation sign. Lower extremity strength is actually reasonably good both proximally and distally, although one could argue there is some proximal weakness, perhaps due to reduced effort. Toes are downgoing, but she does not have easily elicitable reflexes in the arms or legs. Sensory examination reveals pretty good vibratory sense distally in the arms and legs. Normal light touch and normal or reasonably good proprioception on her toes. I am not sure what is going on here. This woman has a progressive gait disturbance, but occurs in the setting of anemia, aortic stenosis of severe type and some of this may just be due to her generalized weakness induced by these 2 issues and now complicated by a presumptive urinary tract infection. She has been tested for Lyme disease and anaplasmosis, and both tests are negative. She has not had a CK, sed rate, protein electrophoresis or B12 level, but her TSH is normal. I have ordered the above labs, but do not really expect them to show very much. My suspicions are the MRI will only show some leukoencephalopathy, but we will see if it does not show some recent infarctions, which might explain some of her gait disturbance, although what I see is pretty nonlateralizing and I really do not see evidence for significant cerebellar disease. She might have a peripheral neuropathy, but the manifestation of this clinically is pretty minimal and confined to hyporeflexia and nothing about this sounds like a progressive demyelinating polyneuropathy type of issue as her strength is actually to individual group testing pretty good and her sensation is intact. I do not think this is a myelopathy as toes are downgoing. Her rapid repetitive motions are good. There is no Lhermitte's phenomenon, but she is a patient on methotrexate for rheumatoid arthritis, could have some odontoid instability and if we do not get a good view of the upper cervical vertebrae on her MRI, which is pending, then we may end up doing a cervical MRI to clear the air, but I doubt we are going to see much there either. I will be back tomorrow to look her over, but for now all I see is evidence for generalized nonspecific weakness with no lateralizing neurologic findings other than areflexia or hyporeflexia, which is highly nonspecific in this setting.
--- NOTE | 2019-11-14 17:08 | Magnetic Resonance Report ---
MRI OF THE BRAIN WITHOUT AND WITH IV CONTRAST CLINICAL HISTORY: Strokelike symptoms. Falls. Dizziness. Unsteady gait. Headache. COMPARISON STUDY: Noncontrast head CT dated 11/14/2019 TECHNIQUE: MRI of the brain was performed from the vertex to the skull base utilizing various T1 and T2 weighted sequences. Following the IV administration of 5.8 mL of Gadavist contrast, additional enh anced images were obtained. FINDINGS: Sagittal T1, axial diffusion, proton density and T2 weighted axial, coronal FLAIR, and pre and post a xial T1-weighted images were acquired. These were supplemented with post gadolinium coronal T1 weight ed images. No intra or extra-axial mass lesions are visualized. Axial diffusion-weighted images reveal no evidence of acute or subacute infarction. There is no evidence of ventricular dilatation. Proton density T2-weighted and FLAIR images reveal moderate foci of increased T2 signal within the wh ite matter, likely on a small vessel basis. There are no abnormal flow voids. There is no evidence of pathologic enhancement. IMPRESSION: 1. No acute intracranial findings 2. No evidence of intracranial mass 3. No evidence of acute or subacute infarction 4. Foci of increased T2 signal within the white matter, likely on a small vessel ischemic basis. ACT 112: Negative or not required by law. Electronically signed by: Saturnino Jones M.D. 11/14/2019 5:07 PM
[2019-11-14] MEDS: MAGNESIUM SULFATE / D5W 1 GM/100 ML BAG IV SCH (17:11)
--- NOTE | 2019-11-14 17:41 | Cardiology Consultation ---
Date of Consultation November 14, 2019 Assessment & Plan (1) Wide-complex tachycardia: Patient with complex history as outlined above, 78-year-old female with with severe calcific aortic stenosis, underlying rheumatoid arthritis on multiple immunosuppressive drug regimen presents with several weeks history of generalized weakness and gait instability. This morning severe episode with weakness nausea and emesis No distinct etiology at this point in time but while in the course of evaluation on monitor was noted to have an 8 beat run of wide-complex tachycardia Echocardiogram pending. Initial cardiac enzymes and EKGs unrevealing We will have patient take p.m. dose of metoprolol succinate now having missed a.m. dose Magnesium, potassium already supplemented Neurology, infectious evaluation in process. Maintain telemetry at all times (2) Severe aortic stenosis: Will review echo performed today (3) Paroxysmal SVT (supraventricular tachycardia): Past atrial and ventricular arrhythmias nonmalignant noted on past event monitor 2018 (4) Anemia: (5) Ataxia: (6) Weakness: (7) Obstructive sleep apnea: History of Present Illness Reason for Consultation: Weakness, transient wide-complex tachycardia Requesting Physician: Dr. Zeynep Hale Attending Physician: Zeynep Hale, DO History of Present Illness Patient is a 78-year-old female referred for evaluation after hospitalization for acute weakness event. Her underlying medical issues include 1. Severe calcific aortic stenosis with associated mitral insufficiency 2. Obstructive sleep apnea/restless leg syndrome 3. Past DVT pulmonary embolus on chronic anticoagulation with warfarin 4. Paroxysmal supraventricular tachycardia 5. Rheumatoid arthritis on chronic immunosuppressive therapy with methotrexate Patient presents now noting difficulties with weakness and gait instability for several weeks but today had an acute event where she slumped to the floor after attempting to rise from bed. She was unable to rise independently and while sitting then became acutely nauseated and had 3 episodes of emesis. She noted a headache but no other acute complaints noted no focal weakness. Was not aware of any tachypalpitations noted no true syncope. Denied chest pains or worsening shortness of breath. Has not been aware of fever chills or infection other than dysuria complaints. Appetite is been fair weight is been trending downward. Notes no bleeding difficulties melena medication dysuria hematuria notes no edema of significance Did not take her medications this morning due to event Today after admission and in the process of evaluation did have on telemetry an 8 beat run of wide-complex tachycardia asymptomatically Is referred now for further evaluation. Currently without complaint eating dinner. Notes nausea episodes has resolved no dizziness or lightheadedness. Patient does note she has been taking Requip rather than 1 mg 3 times per day, 3 mg at nightly Allergies Allergy/AdvReac Type Severity Reaction Status Date / Time Penicillins Allergy Mild RASH Verified 11/14/19 11:13 baclofen Allergy Unknown DIZZY Verified 11/14/19 11:13 Sulfa (Sulfonamide Allergy Unknown HEADACHE Verified 11/14/19 11:13 Antibiotics) Home Medications Home Medications Medication Instructions Recorded Confirmed Type aspirin 81 mg PO QAM 07/01/18 11/14/19 History atorvastatin 40 mg PO HS 07/01/18 11/14/19 History cholecalciferol (vitamin D3) 1,000 unit PO QAM 07/01/18 11/14/19 History [Vitamin D3] coenzyme Q10 10 mg PO HS 07/01/18 11/14/19 History hydrochlorothiazide 25 mg PO DAILY PRN 07/01/18 11/14/19 History metoprolol succinate 50 mg PO BID 07/01/18 11/14/19 History multivitamin 1 tab PO QAM 07/01/18 11/14/19 History prednisone 5 mg PO QAM 07/01/18 11/14/19 History warfarin 2.5 mg PO SUTUWETHSA@00 07/01/18 11/14/19 History clotrimazole-betamethasone 1 applic TOPICAL BID PRN 10/17/19 11/14/19 History duloxetine [Cymbalta] 30 mg PO QAM 10/17/19 11/14/19 History folic acid 1 mg PO QAM 10/17/19 11/14/19 History leflunomide [Arava] 10 mg PO QAM 10/17/19 11/14/19 History methotrexate sodium 10 mg PO FR 11/14/19 11/14/19 History ropinirole 0.5 mg PO HS 11/14/19 11/14/19 History warfarin 1.25 mg PO MOFR@0800 11/14/19 11/14/19 History Patient History Medical History Diverticular disease hx diverticulitis GERD (gastroesophageal reflux disease) History of DVT (deep vein thrombosis) a few years ago. remote h/o PE as well. on intermediate anticoagulation HLD (hyperlipidemia) Paroxysmal SVT (supraventricular tachycardia) Rheumatoid arthritis RLS (restless legs syndrome) Severe aortic stenosis Surgical History H/O colonoscopy H/O knee surgery both knees, replacements H/O laminectomy History of carpal tunnel surgery both right and left History of tooth extraction upper and lower dentures S/P CHANNING-BSO Family History Other Heart disease Rheumatoid arthritis Social History Smoking Status: Former smoker Second Hand Exposure: No; Do You Dip or Chew Tobacco: No; Tobacco Cessation Education Requested by Patient: No Hx Alcohol Use: No Hx Substance Use: No Preferred Language: Luxembourgish Communication Ability: Effective Cook Chili Required: No Beliefs That Will Affect Care: Mandaeism Mandaeism Beliefs: Nondenominational Current Living Situation: Spouse Current Living Situation Comment: Lives with Other Information That Helps Us Care for You: No Feels Safe at Home: Yes Safety Concerns: Feels Safe At This Time Review of Systems Review of Systems: All systems reviewed & are unremarkable except as noted in HPI & below Physical Exam Constitutional: WD/WN, vitals as above no acute distress Eyes: PERRL, conjunctivae normal, anicteric sclerae ENMT: external ear and nose normal, oropharynx normal Neck: trachea midline, no thyromegaly There is referred murmur to the base of the carotids Respiratory: normal respiratory effort, lungs clear to auscultation Cardiovascular: Rate/Rhythm: regular rate and regular rhythm Heart Sounds: normal S1, normal S2 and + murmur (Grade 3/6 systolic murmur heard best at the right upper sternal border); no gallop Palpation: normal PMI Vessels: normal carotid upstroke and radial pulses present; no JVD and no carotid bruit Extremities: no edema Gastrointestinal (Abdomen): normal bowel sounds, soft, nontender, no hepatosplenomegaly Musculoskeletal: no cyanosis or clubbing, extremities motor strength 5/5 Skin: no rashes, warm and dry Neurologic: PERRL, EOMI, accommodation nl, no face palsy, no dysarthria Psychiatric: A+Ox3, euthymic affect Results & Data ([facility]) Vital Signs (Past 12 Hours) Vital Signs Temp Pulse Pulse Resp BP BP Pulse Ox 11/14/19 14:23 36.8 C 76 18 132/73 95 11/14/19 12:00 81 128/81 97 11/14/19 10:31 88 18 149/80 H 97 11/14/19 09:31 97 11/14/19 08:31 36.8 C 97 H 20 141/92 H 97 Diagnostic Findings Carotid duplex 09/25/2019 mild bilateral plaque only no obstruction ECG Additional Comments: 14-NOV-2019 08:49:47 [facility]-EDSTAT ROUTINE RETRIEVAL Sinus rhythm with 1st degree A-V block Left ventricular hypertrophy with repolarization abnormality Abnormal ECG When compared with ECG of 01-JUL-2018 12:01, T wave inversion no longer evident in Inferior leads Confirmed by Valentin Hinton ([id number]) on 11/14/2019 1:07:25 PM (1) Anemia Anemia type: unspecified type Qualified Code(s): D64.9 - Anemia, unspecified
[2019-11-14] MEDS: WARFARIN SOD 2.5 MG TAB PO SCH (17:57)
[2019-11-14] MEDS ORDERED: METOPROLOL SUCC 50MG EXT REL TAB PO ONE (18:15)
[2019-11-14] MEDS ORDERED: Nursing to Pharmacy Communication SCH (18:15)
[2019-11-14] MEDS ORDERED: ATORVASTATIN 40 MG TAB PO SCH (21:00)
[2019-11-14] MEDS ORDERED: METOPROLOL SUCC 50MG EXT REL TAB PO SCH (21:00)
[2019-11-14] MEDS: ROPINIROLE HCL 1 MG TABLET PO SCH (22:33)
[2019-11-15] MEDS ORDERED: DAPTOmycin 1 MG in SYRINGE 0 ML IV ONE (04:28)
[2019-11-15] MEDS ORDERED: CEFEPIME CONSULT ACTIVE PRN (04:28)
[2019-11-15] MEDS ORDERED: DAPTOMYCIN CONSULT ACTIVE PRN (04:28)
[2019-11-15] MEDS ORDERED: ACETAMINOPHEN 325 MG TAB PO STA (04:30)
--- NOTE | 2019-11-15 04:30 | Communication Note ---
Date of Service:2019 Made aware of low-grade fever overnight despite ongoing ceftriaxone Rx for possible UTI. Broaden antibiotic coverage for now to Cefepime and Daptomycin given immu nocompromised state (chronic prednisone Rx) and hx hx Enterococcus UTI on prior urine CS. Will relay to AM provider.
[2019-11-15] MEDS ORDERED: NORMOSOL-R 1,000 ML IV ONE (04:33)
[2019-11-15] MEDS: CEFEPIME 2,000 MG in SYRINGE 7.5 ML IV SCH ×2 (05:34→18:00)
[2019-11-15] MEDS: DAPTOmycin 350 MG in SYRINGE 0 ML IV SCH (05:34)
[2019-11-15] MEDS: METOPROLOL SUCC 50MG EXT REL TAB PO SCH ×2 (05:36→20:31)
[2019-11-15 06:11] LABS: Estimated Average Glucose 108 mg/dl; Hemoglobin A1C 5.4 % (4.5-5.6)
[2019-11-15 07:05] LABS: Hematocrit (blood only) 30.6 % (37-47); Hemoglobin 10.3 g/dL (12.0-16.0); Mean Corpuscular Hemoglobin 32.8 pg (25-34); Mean Corpuscular Hgb Conc 33.7 g/dL (32-36); Mean Corpuscular Volume 97.5 fL (80-100); Mean Platelet Volume 9.5 fL (7.4-10.4); Platelet Count 146 K/uL (130-400); RDW Coefficient of Variation 15.2 % (11.5-14.5); RDW Standard Deviation 52.9 fL (36.4-46.3); Red Blood Count 3.14 M/uL (4.2-5.4); White Blood Count 5.16 K/uL (4.8-10.8)
[2019-11-15 07:14] LABS: INR 1.5 (0.9-1.1); Prothrombin Time 15.3 Seconds (9.0-12.0)
[2019-11-15 07:41] LABS: BUN Creatinine Ratio 16.6 (10-20); Calcium 7.7 mg/dl (8.5-10.1); Est GFR (African American) 93.9; Potassium 4.4 mmol/L (3.5-5.1)
[2019-11-15] MEDS: FOLIC ACID 1 MG TAB PO SCH (08:26)
[2019-11-15] MEDS: CHOLECALCIFEROL 1,000 UNITS 25 MCG TAB PO SCH (08:26)
[2019-11-15] MEDS: predniSONE 5 MG TAB PO SCH (08:26)
[2019-11-15] MEDS: MULTIVITAMIN TAB PO SCH (08:26)
[2019-11-15] MEDS: DULOXETINE HCL 30 MG CAP PO SCH (08:26)
[2019-11-15] MEDS: LEFLUNOMIDE 10 MG TAB PO SCH (08:26)
[2019-11-15] MEDS: ASPIRIN 81 MG ECTAB PO SCH (08:26)
[2019-11-15] MEDS ORDERED: cefTRIAXone SODIUM 1,000 MG in DEXTROSE 5% 50 ML IV SCH (09:00)
--- NOTE | 2019-11-15 12:15 | Hospitalist Progress Note ---
Date of Service November 15, 2019 Assessment & Plan (1) Ataxia: She has progressive gait disturbance not showing any significant MRI of the brain has been negative Appreciate neurology input and recommendation We will continue PT and OT evaluation (2) Weakness: This is a 78-year-old female with PMH of severe aortic valve stenosis, hyperlipidemia, history of paroxysmal SVT, rheumatoid arthritis on prednisone, history of PE on Coumadin, RLS and other medical problems listed below who presents with worsening generalized weakness and abnormal gait x 6 weeks. Likely contributed by recent UTI with associated comorbid conditions Clinically better today (3) Acute UTI (urinary tract infection): Abnormal UA. Was getting intravenous ceftriaxone since admission Urine is growing gram-negative bacilli and further identification and sensitivities are pending Has had fever last night and antibiotics were changed to cefepime and Dapto as the patient being immunocompromised Will await urine sensitivity report before changing antibiotics Clinically better (4) History of DVT (deep vein thrombosis): On Coumadin for history of DVT and PE in the past. INR is 1.5 as of 11/15/2019 We will check INR tomorrow (5) Anemia: (6) Rheumatoid arthritis: Continue weekly methotrexate, Arava, prednisone (7) Paroxysmal SVT (supraventricular tachycardia): Noted to have 8 beats run of wide-complex tachycardia Appreciate cardiology input and recommendation Continue beta-danielito Electrolytes normalized Remains in sinus rhythm (8) Severe aortic stenosis: HANS from last month demonstrating severe aortic stenosis. Seeing Dr. Ware of cardiology next week for possible aortic valve replacement Echo as of 11/15/2019 showed: Normal LV, moderate concentric LVH, LV wall motion is normal, EF 60 to 65%, severe calcific aortic valve stenosis, trace MR and Doppler findings do not suggest pulmonary hypertension. Appreciate cardiology input and recommendation (9) RLS (restless legs syndrome): Continue Requip. Prescribed to take 1mg TID but reports taking all 3 pills at night-? Will try to clarify safe dose (10) HLD (hyperlipidemia): Continue statin DVT Ppx: Continue coumadin Code status:FULL PCP: Kenyetta Colbert Dispo: Admit to [facility] Admission and Anticipated Discharge Date Admission Date: November 14, 2019 Subjective 11/15/2019 The patient was seen and examined in medical telemetry unit She complains today of some headache and generalized weakness Denies any symptoms with urine and her bowel habit Denies any neurological symptoms Review of Systems Review of Systems: All systems reviewed and are unremarkable except as noted below Constitutional: + weakness Neurologic: + headache(s); no paresthesia, no tremor(s), no abnormal speech and no confusion Physical Exam Physical Exam: Lying in bed comfortably Constitutional: well developed and well nourished; no acute distress and not ill appearing Eyes: PERRL, conjunctivae normal, anicteric sclerae ENMT: external ear and nose normal, oropharynx normal Neck: trachea midline, no thyromegaly Respiratory: normal respiratory effort and + respiratory distress Auscultation: lungs clear to auscultation bilaterally Cardiovascular: Rate/Rhythm: regular rate and regular rhythm Heart Sounds: + murmur (3/6 ejection systolic murmur over precordium and aortic area) Extremities: + edema (1+ edema bilaterally) Gastrointestinal (Abdomen): Inspection/Auscultation: abdomen normal to inspection and normal bowel sounds; abdomen not distended Percussion/Palpation: abdomen soft; abdomen nontender Musculoskeletal: No acute arthritis involving any joints Neurologic: moves all extremities; no focal motor deficits Generally weak Lymphatic: no cervical or axillary lymphadenopathy Results & Data Results & Data ([facility]) Vital Signs (Past 12 Hours) Vital Signs Temp Pulse Pulse Resp BP Pulse Ox 11/15/19 11:47 36.6 C 104 H 16 169/71 H 93 11/15/19 07:22 74 11/15/19 06:52 37.2 C 76 20 153/66 H 96 11/15/19 04:06 37.7 C H 82 20 169/75 H 95 11/15/19 02:57 73 Laboratory Results Short CBC 11/15/19 Range/Units 06:30 WBC 5.16 (4.8-10.8) K/uL Hgb 10.3 L (12.0-16.0) g/dL Hct 30.6 L (37-47) % Plt Count 146 (130-400) K/uL BMP 11/15/19 06:30 Sodium 139 Potassium 4.4 D Chloride 111 H Carbon Dioxide 23 BUN 12 Creatinine 0.71 Glucose 90 Calcium 7.7 L Cardiac Enzymes 11/14/19 11/14/19 Range/Units 17:45 23:46 Troponin I 0.083 H* 0.062 H* (0-0.045) ng/ml Medications Administered Current Inpatient Medications Acetaminophen (Acetaminophen 325 Mg Tab) 650 mg PO Q4H PRN PRN Reason: Pain or Fever Stop: 12/14/19 14:20 Last Admin: 11/15/19 09:35 Dose: 650 mg Documented by: Aspirin (Aspirin 81 Mg Ectab) 81 mg PO [facility]AAM[facility] Stop: 12/15/19 08:59 Last Admin: 11/15/19 08:26 Dose: 81 mg Documented by: Atorvastatin Calcium (Atorvastatin 40 Mg Tab) 40 mg PO [facility] Stop: 12/14/19 20:59 Last Admin: 11/14/19 20:44 Dose: 40 mg Documented by: Duloxetine HCl (Duloxetine Hcl 30 Mg Cap) 30 mg PO [facility] Stop: 12/15/19 08:59 Last Admin: 11/15/19 08:26 Dose: 30 mg Documented by: Folic Acid (Folic Acid 1 Mg Tab) 1 mg PO [facility] Stop: 12/15/19 08:59 Last Admin: 11/15/19 08:26 Dose: 1 mg Documented by: Parenteral Electrolytes (Normosol-R) 1,000 mls @ 50 mls/hr IV .Q20H [facility] Stop: 11/16/19 00:32 Last Admin: 11/15/19 05:33 Dose: 50 mls/hr Documented by: Cefepime HCl 2,000 mg/ Syringe 20 mls @ 5 mls/min IV Q12H [facility] Stop: 11/25/19 05:59 Last Admin: 11/15/19 05:34 Dose: 5 mls/min Documented by: Daptomycin 350 mg/ Syringe 7 mls @ 0 mls/min IV Q24H [facility]; Protocol Stop: 11/25/19 04:59 Last Admin: 11/15/19 05:34 Dose: 3.5 mls/min Documented by: Leflunomide (Leflunomide 10 Mg Tab) 10 mg PO [facility] Stop: 12/15/19 08:59 Last Admin: 11/15/19 08:26 Dose: 10 mg Documented by: Methotrexate (Methotrexate Sodium 2.5 Mg Tab) 10 mg PO Fr@0900 [facility] Stop: 12/17/19 08:59 Metoprolol Succinate (Metoprolol Succ 50mg Ext Rel Tab) 50 mg PO BID [facility] Stop: 12/15/19 04:29 Last Admin: 11/15/19 05:36 Dose: 50 mg Documented by: Miscellaneous Information (Pharmacist Discharge Med Rec Consult) 1 ea N/A UD PRN PRN Reason: Consult Stop: 12/14/19 14:20 Miscellaneous Information (Daptomycin Consult Active) 1 ea N/A UD PRN PRN Reason: Consult Stop: 12/15/19 04:27 Miscellaneous Information (Cefepime Consult Active) 1 ea N/A UD PRN PRN Reason: Consult Stop: 12/15/19 04:27 Multivitamins (Multivitamin Tab) 1 tab PO [facility] Stop: 12/15/19 08:59 Last Admin: 11/15/19 08:26 Dose: 1 tab Documented by: Ondansetron HCl (Ondansetron Inj 2 Mg/Ml 2 Ml Vial) 4 mg IV Q6H PRN PRN Reason: Nausea Stop: 12/14/19 14:20 Polyethylene Glycol (Polyethylene (Miralax) 17 Gm Pack) 17 gm PO DAILY PRN PRN Reason: Constipation Stop: 12/14/19 14:20 Prednisone (Prednisone 5 Mg Tab) 5 mg PO [facility] Stop: 12/15/19 08:59 Last Admin: 11/15/19 08:26 Dose: 5 mg Documented by: Ropinirole HCl (Ropinirole Hcl 1 Mg Tablet) 3 mg PO [facility] Stop: 12/14/19 20:59 Last Admin: 11/14/19 22:33 Dose: 3 mg Documented by: Vitamin D (Cholecalciferol 1,000 Units 25 Mcg Tab) 1,000 units PO [facility] Stop: 12/15/19 08:59 Last Admin: 11/15/19 08:26 Dose: 1,000 units Documented by: Warfarin Sodium (Warfarin Sod 2.5 Mg Tab) 2.5 mg PO SuTuWeThSa@1600 [facility] Stop: 12/14/19 15:59 Last Admin: 11/14/19 17:57 Dose: 2.5 mg Documented by: Warfarin Sodium (Warfarin Sod 1.25 Mg Tab) 1.25 mg PO MoFr@1600 [facility] Stop: 12/17/19 15:59 (1) Anemia Anemia type: unspecified type Qualified Code(s): D64.9 - Anemia, unspecified
--- NOTE | 2019-11-15 12:25 | Cardiology Progress Note ---
Date of Service November 15, 2019 Assessment & Plan (1) Wide-complex tachycardia: No further arrhythmias since admission with patient on usual beta-danielito. Arrhythmias and mild troponin elevation likely reflect demand issues of acute infectious process (2) Severe aortic stenosis: Echocardiogram without clinical change. Aortic valve calcified and restricted mobility no visualized vegetation (3) Obstructive sleep apnea: (4) Acute UTI (urinary tract infection): Appears to be culprit of current issues. No blood cultures drawn on admission, would ensure that blood cultures be drawn after antibiotic course complete given underlying valvular disease (5) Rheumatoid arthritis: On chronic immunosuppressive therapy Admission and Anticipated Discharge Date Admission Date: November 14, 2019 Subjective Patient seen and examined, chart, medications, telemetry reviewed. Feels slightly better this morning still some mild dizziness on sudden position changes. Mildly febrile last evening. Urine growing gram-negative rods Telemetry reveals no further arrhythmias Review of Systems Review of Systems: All systems reviewed & are unremarkable except as noted in HPI & below Physical Exam Constitutional: WD/WN, vitals as above not ill appearing Eyes: PERRL, conjunctivae normal, anicteric sclerae ENMT: external ear and nose normal, oropharynx normal Neck: trachea midline, no thyromegaly Respiratory: normal respiratory effort, lungs clear to auscultation Cardiovascular: Rate/Rhythm: regular rate and regular rhythm Heart Sounds: normal S1, normal S2 and + murmur (Harsh grade 2/6 to 3/6 systolic murmur right upper sternal border radiating to the base of the carotid); no gallop Palpation: normal PMI Vessels: normal carotid upstroke and radial pulses present; no JVD and no carotid bruit Extremities: no edema Gastrointestinal (Abdomen): normal bowel sounds, soft, nontender, no hepatosplenomegaly Musculoskeletal: no cyanosis or clubbing, extremities motor strength 5/5 Skin: no rashes, warm and dry Neurologic: PERRL, EOMI, accommodation nl, no face palsy, no dysarthria Psychiatric: A+Ox3, euthymic affect Results & Data ([facility]) Vital Signs (Past 12 Hours) Vital Signs Temp Pulse Pulse Resp BP Pulse Ox 11/15/19 11:47 36.6 C 104 H 16 169/71 H 93 11/15/19 07:22 74 11/15/19 06:52 37.2 C 76 20 153/66 H 96 11/15/19 04:06 37.7 C H 82 20 169/75 H 95 11/15/19 02:57 73 Laboratory Results Laboratory Results - last 24 hr 11/14/19 11/14/19 11/14/19 09:45 09:45 09:45 WBC RBC Hgb Hct MCV MCH MCHC RDW Std Deviation RDW Coeff of Keila Plt Count MPV ESR PT INR Sodium Potassium Chloride Carbon Dioxide Anion Gap BUN Creatinine Est Cr Clr Drug Dosing Est GFR ( Amer) Est GFR (Non-Af Amer) BUN/Creatinine Ratio Glucose Estimat Average Glucose 108 Hemoglobin A1c 5.4 Calcium Troponin I Total Protein (PEP) Albumin (PEP) Xqxqp-9-Kyfartiwh Hhaag-0-Fcdhsupdv Eigw-8-Sqnilpah Gtdj-5-Ozflmfxr Gamma Globulins Monoclonal Peak 3 Ser Monoclonl Protein Ser Monoclonal Prot 2 PEP Interpretation Triglycerides Cholesterol LDL Cholesterol, Calc VLDL Cholesterol, Calc HDL Cholesterol Cholesterol/HDL Ratio Vitamin B12 Anaplasma Smear See Comment Lyme Disease IgG Ab Negative Lyme Disease IgM Ab Negative 11/14/19 11/14/19 11/14/19 17:45 17:45 17:45 WBC RBC Hgb Hct MCV MCH MCHC RDW Std Deviation RDW Coeff of Keila Plt Count MPV ESR 32 H PT INR Sodium Potassium Chloride Carbon Dioxide Anion Gap BUN Creatinine Est Cr Clr Drug Dosing Est GFR ( Amer) Est GFR (Non-Af Amer) BUN/Creatinine Ratio Glucose Estimat Average Glucose Hemoglobin A1c Calcium Troponin I 0.083 H* Total Protein (PEP) Albumin (PEP) Inbqg-3-Oxdhuaxtv Yixok-6-Qindhtlpy Vwho-4-Fpusojsk Tdwy-2-Ozswcqke Gamma Globulins Monoclonal Peak 3 Ser Monoclonl Protein Ser Monoclonal Prot 2 PEP Interpretation Triglycerides Cholesterol LDL Cholesterol, Calc VLDL Cholesterol, Calc HDL Cholesterol Cholesterol/HDL Ratio Vitamin B12 434 Anaplasma Smear Lyme Disease IgG Ab Lyme Disease IgM Ab 11/14/19 11/14/19 11/15/19 17:45 23:46 06:30 WBC 5.16 RBC 3.14 L Hgb 10.3 L Hct 30.6 L MCV 97.5 MCH 32.8 MCHC 33.7 RDW Std Deviation 52.9 H RDW Coeff of Keila 15.2 H Plt Count 146 MPV 9.5 ESR PT INR Sodium Potassium Chloride Carbon Dioxide Anion Gap BUN Creatinine Est Cr Clr Drug Dosing Est GFR ( Amer) Est GFR (Non-Af Amer) BUN/Creatinine Ratio Glucose Estimat Average Glucose Hemoglobin A1c Calcium Troponin I 0.062 H* Total Protein (PEP) Pending Albumin (PEP) Pending Abxfv-8-Fdrnypipj Pending Iprqj-6-Fuzczzlgb Pending Pgyy-1-Ymmiiuwa Pending Zagd-6-Rtcctjtg Pending Gamma Globulins Pending Monoclonal Peak 3 Pending Ser Monoclonl Protein Pending Ser Monoclonal Prot 2 Pending PEP Interpretation Pending Triglycerides Cholesterol LDL Cholesterol, Calc VLDL Cholesterol, Calc HDL Cholesterol Cholesterol/HDL Ratio Vitamin B12 Anaplasma Smear Lyme Disease IgG Ab Lyme Disease IgM Ab 11/15/19 11/15/19 06:30 06:30 WBC RBC Hgb Hct MCV MCH MCHC RDW Std Deviation RDW Coeff of Keila Plt Count MPV ESR PT 15.3 H INR 1.5 H Sodium 139 Potassium 4.4 D Chloride 111 H Carbon Dioxide 23 Anion Gap 5.0 BUN 12 Creatinine 0.71 Est Cr Clr Drug Dosing 47.0 Est GFR ( Amer) 93.9 Est GFR (Non-Af Amer) 81.0 BUN/Creatinine Ratio 16.6 Glucose 90 Estimat Average Glucose Hemoglobin A1c Calcium 7.7 L Troponin I Total Protein (PEP) Albumin (PEP) Cisjr-3-Kbfgalyip Aswtc-5-Azjpcfbwi Fprl-9-Kaidkoyl Pwst-3-Vqauipgb Gamma Globulins Monoclonal Peak 3 Ser Monoclonl Protein Ser Monoclonal Prot 2 PEP Interpretation Triglycerides 143 Cholesterol 139 LDL Cholesterol, Calc 75 VLDL Cholesterol, Calc 29 HDL Cholesterol 35 Cholesterol/HDL Ratio 4 Vitamin B12 Anaplasma Smear Lyme Disease IgG Ab Lyme Disease IgM Ab
--- NOTE | 2019-11-15 12:28 | Electrocardiogram Report ---
Test Reason : Blood Pressure : / mmHG Vent. Rate : 067 BPM Atrial Rate : 067 BPM P-R Int : 196 ms QRS Dur : 068 ms QT Int : 414 ms P-R-T Axes : 042 -27 003 degrees QTc Int : 437 ms Normal sinus rhythm Minimal voltage criteria for LVH, may be normal variant ( R in aVL ) Borderline ECG When compared with ECG of 14-NOV-2019 08:49, Nonspecific T wave abnormality no longer evident in Lateral leads Confirmed by Valentin Hinton ([id number]) on 11/15/2019 12:28:18 PM Referred By: REFERRED SELF Confirmed By:Valentin Hinton
[2019-11-15] MEDS: WARFARIN SOD 2.5 MG TAB PO SCH (15:54)
--- NOTE | 2019-11-15 16:23 | Communication Note ---
Date of Service: November 15, 2019 Nasima looks improved today the urinary tract is being treated with antibiotics and she feels overall better than she has in a week or so. Her exam remains nonspecifically mildly abnormal with a little unsteadiness of gait and her MRI does not show any evidence for recent acute infarctions but does show some leukoencephalopathic changes which may actually be the basis of her gait instability She is anemic has increased aortic stenosis apparently and I wonder if these 2 variables are not producing generalized weakness and increased gait instability as a nonspecific effect B12 level is normal, protein electrophoresis is pending, CPK has been reordered as it was not drawn and views of the upper cervical spine on MRI showed no evidence for odontoid instability or compression of the spinal cord At this point neurology does not have a lot more to offer going to sign off I would be happy to reassess her should things change. In the future an e valuation for peripheral neuropathy might be in order performance of an EMG but this is something that can be done on an outpatient basis for primary care physician thinks it appropriate as this would be 1 more abnormality that could add to her gait disturbance Felix Spencer MD
[2019-11-15] MEDS: ROPINIROLE HCL 1 MG TABLET PO SCH (20:31)
[2019-11-16] MEDS: DAPTOmycin 350 MG in SYRINGE 0 ML IV SCH (05:19)
[2019-11-16] MEDS: CEFEPIME 2,000 MG in SYRINGE 7.5 ML IV SCH (05:19)
[2019-11-16 05:59] LABS: Basophils # (auto) 0.03 K/uL (0-0.2); Basophils % (auto) 0.5 %; Eosinophils % (auto) 3.5 %; Hematocrit (blood only) 32.1 % (37-47); Hemoglobin 10.5 g/dL (12.0-16.0); Immature Granulocytes # (auto) 0.01 K/uL (0.00-0.02); Immature Granulocytes % (auto) 0.2 %; Lymphocytes # (auto) 0.84 K/uL (1.2-3.4); Lymphocytes % (auto) 14.7 %; Mean Corpuscular Hemoglobin 32.4 pg (25-34); Mean Corpuscular Hgb Conc 32.7 g/dL (32-36); Mean Corpuscular Volume 99.1 fL (80-100); Mean Platelet Volume 9.6 fL (7.4-10.4); Monocytes # (auto) 1.02 K/uL (0.11-0.59); Monocytes % (auto) 17.9 %; Neutrophils % (auto) 63.2 %; Platelet Count 144 K/uL (130-400); RDW Standard Deviation 52.6 fL (36.4-46.3); Red Blood Count 3.24 M/uL (4.2-5.4)
[2019-11-16 06:11] LABS: INR 1.6 (0.9-1.1); Prothrombin Time 16.5 Seconds (9.0-12.0)
[2019-11-16 06:33] LABS: BUN Creatinine Ratio 16.1 (10-20); Calcium 7.7 mg/dl (8.5-10.1); Creatinine Clr Calc Pharmacy 47.7 ml/min; Est GFR (African American) 93.9; Magnesium 2.2 mg/dl (1.8-2.4); Phosphorus 2.6 mg/dl (2.5-4.9); Potassium 4.1 mmol/L (3.5-5.1)
[2019-11-16] MEDS: LEFLUNOMIDE 10 MG TAB PO SCH (07:57)
[2019-11-16] MEDS: DULOXETINE HCL 30 MG CAP PO SCH (07:57)
[2019-11-16] MEDS: FOLIC ACID 1 MG TAB PO SCH (07:58)
[2019-11-16] MEDS: CHOLECALCIFEROL 1,000 UNITS 25 MCG TAB PO SCH (07:58)
[2019-11-16] MEDS: predniSONE 5 MG TAB PO SCH (07:58)
[2019-11-16] MEDS: ASPIRIN 81 MG ECTAB PO SCH (07:58)
[2019-11-16] MEDS: MULTIVITAMIN TAB PO SCH (07:58)
[2019-11-16] MEDS: METOPROLOL SUCC 50MG EXT REL TAB PO SCH (10:12)
--- NOTE | 2019-11-16 11:06 | Cardiology Progress Note ---
Date of Service November 16, 2019 Assessment & Plan (1) Wide-complex tachycardia: No further arrhythmias since admission with patient on usual beta-danielito. Arrhythmias and mild troponin elevation likely reflect demand issues of acute infectious process Patient to continue usual medications (2) Severe aortic stenosis: Echocardiogram without clinical change. Aortic valve calcified and restricted mobility no visualized vegetation (3) Obstructive sleep apnea: (4) Acute UTI (urinary tract infection): Appears to be culprit of current issues. Would ensure that blood cultures be drawn after antibiotic course complete given underlying valvular disease (5) Rheumatoid arthritis: On chronic immunosuppressive therapy Admission and Anticipated Discharge Date Admission Date: November 14, 2019 Subjective Patient seen and examined, chart, medications, telemetry reviewed. Feels improved. Up in room without dizziness or lightheadedness. No chest pains or discomfort. No arrhythmias on telemetry Physical Exam Constitutional: WD/WN, vitals as above no acute distress and not ill appearing Eyes: PERRL, conjunctivae normal, anicteric sclerae ENMT: external ear and nose normal, oropharynx normal Neck: trachea midline, no thyromegaly Respiratory: normal respiratory effort, lungs clear to auscultation Cardiovascular: Rate/Rhythm: regular rate and regular rhythm Heart Sounds: normal S1, normal S2 and + murmur (Harsh grade 2/6 to 3/6 systolic murmur right upper sternal border radiating to the base of the carotid); no gallop Palpation: normal PMI Vessels: normal carotid upstroke and radial pulses present; no JVD and no carotid bruit Extremities: no edema Gastrointestinal (Abdomen): normal bowel sounds, soft, nontender, no hepatosplenomegaly Musculoskeletal: no cyanosis or clubbing, extremities motor strength 5/5 Skin: no rashes, warm and dry Neurologic: PERRL, EOMI, accommodation nl, no face palsy, no dysarthria Psychiatric: A+Ox3, euthymic affect Results & Data ([facility]) Vital Signs (Past 12 Hours) Vital Signs Temp Pulse Pulse Resp BP Pulse Ox 11/16/19 07:26 36.8 C 75 20 168/83 H 94 11/16/19 06:19 71 11/16/19 03:22 37 C 70 17 178/72 H 97 11/16/19 01:57 69 Laboratory Results Laboratory Results - last 24 hr 11/15/19 11/16/19 11/16/19 06:30 05:18 05:18 WBC 5.70 RBC 3.24 L Hgb 10.5 L Hct 32.1 L MCV 99.1 MCH 32.4 MCHC 32.7 RDW Std Deviation 52.6 H RDW Coeff of Keila 15.0 H Plt Count 144 MPV 9.6 Immature Gran % (Auto) 0.2 Neut % (Auto) 63.2 Lymph % (Auto) 14.7 Pender % (Auto) 17.9 Eos % (Auto) 3.5 Baso % (Auto) 0.5 Neut # (Auto) 3.60 Lymph # (Auto) 0.84 L Pender # (Auto) 1.02 H Eos # (Auto) 0.20 Baso # (Auto) 0.03 Immature Gran # (Auto) 0.01 PT INR Sodium 142 Potassium 4.1 Chloride 113 H Carbon Dioxide 25 Anion Gap 4.0 BUN 11 Creatinine 0.71 Est Cr Clr Drug Dosing 47.7 Est GFR ( Amer) 93.9 Est GFR (Non-Af Amer) 81.0 BUN/Creatinine Ratio 16.1 Glucose 83 Calcium 7.7 L Phosphorus 2.6 Magnesium 2.2 Total Creatine Kinase 52 11/16/19 05:18 WBC RBC Hgb Hct MCV MCH MCHC RDW Std Deviation RDW Coeff of Keila Plt Count MPV Immature Gran % (Auto) Neut % (Auto) Lymph % (Auto) Pender % (Auto) Eos % (Auto) Baso % (Auto) Neut # (Auto) Lymph # (Auto) Pender # (Auto) Eos # (Auto) Baso # (Auto) Immature Gran # (Auto) PT 16.5 H INR 1.6 H Sodium Potassium Chloride Carbon Dioxide Anion Gap BUN Creatinine Est Cr Clr Drug Dosing Est GFR ( Amer) Est GFR (Non-Af Amer) BUN/Creatinine Ratio Glucose Calcium Phosphorus Magnesium Total Creatine Kinase
--- NOTE | 2019-11-16 13:29 | Hospitalist Progress Note ---
Date of Service November 16, 2019 Assessment & Plan (1) Ataxia: She has progressive gait disturbance not showing any significant MRI of the brain has been negative Appreciate neurology input and recommendation We will continue PT and OT evaluation Medically stable to be discharged home with outpatient physical therapy as recommended (2) Weakness: This is a 78-year-old female with PMH of severe aortic valve stenosis, hyperlipidemia, history of paroxysmal SVT, rheumatoid arthritis on prednisone, history of PE on Coumadin, RLS and other medical problems listed below who presents with worsening generalized weakness and abnormal gait x 6 weeks. Likely contributed by recent UTI with associated comorbid conditions Clinically a lot better today (3) Acute UTI (urinary tract infection): Abnormal UA. Was getting intravenous ceftriaxone since admission Urine is growing gram-negative bacilli and further identification and sensitivities are pending Has had fever last night and antibiotics were changed to cefepime and Dapto as the patient being immunocompromised Will await urine sensitivity report before changing antibiotics Urine culture grew E. coli and is sensitive to cephalosporins She will be given Keflex to continue a total of 7 days of antibiotic (4) History of DVT (deep vein thrombosis): On Coumadin for history of DVT and PE in the past. INR is 1.5 as of 11/15/2019 We will check INR tomorrow INR remains at 1.6 Advised to have regular checkup with the Coumadin clinic (5) Anemia: (6) Rheumatoid arthritis: Continue weekly methotrexate, Arava, prednisone (7) Paroxysmal SVT (supraventricular tachycardia): Noted to have 8 beats run of wide-complex tachycardia Appreciate cardiology input and recommendation Continue beta-danielito Electrolytes normalized Remains in sinus rhythm (8) Severe aortic stenosis: HANS from last month demonstrating severe aortic stenosis. Seeing Dr. Ware of cardiology next week for possible aortic valve replacement Echo as of 11/15/2019 showed: Normal LV, moderate concentric LVH, LV wall motion is normal, EF 60 to 65%, severe calcific aortic valve stenosis, trace MR and Doppler findings do not suggest pulmonary hypertension. Appreciate cardiology input and recommendation (9) RLS (restless legs syndrome): Continue Requip. Prescribed to take 1mg TID but reports taking all 3 pills at night-? Will try to clarify safe dose (10) HLD (hyperlipidemia): Continue statin DVT Ppx: Continue coumadin Code status:FULL PCP: Kenyetta Colbert Dispo: Admit to [facility] Admission and Anticipated Discharge Date Admission Date: November 14, 2019 Subjective 11/15/2019 The patient was seen and examined in medical telemetry unit She complains today of some headache and generalized weakness Denies any symptoms with urine and her bowel habit Denies any neurological symptoms 11/16/2019 The patient was seen and examined in medical telemetry unit She has been feeling lot better today and denies any significant symptoms She has been smiling and did very well with physical therapy Denies any fever and/or chills, any nausea and/or vomiting She wants to go home today Review of Systems Review of Systems: All systems reviewed and are unremarkable except as noted below Constitutional: + weakness Neurologic: no paresthesia, no tremor(s), no headache(s), no abnormal speech and no confusion Physical Exam Physical Exam: Lying in bed comfortably and is a smiling today Constitutional: well developed and well nourished; no acute distress and not ill appearing Eyes: PERRL, conjunctivae normal, anicteric sclerae ENMT: external ear and nose normal, oropharynx normal Neck: trachea midline, no thyromegaly Respiratory: normal respiratory effort and + respiratory distress Auscultation: lungs clear to auscultation bilaterally Cardiovascular: Rate/Rhythm: regular rate and regular rhythm Heart Sounds: + murmur (3/6 ejection systolic murmur over precordium and aortic area) Extremities: + edema (1+ edema bilaterally) Gastrointestinal (Abdomen): Inspection/Auscultation: abdomen normal to inspection and normal bowel sounds; abdomen not distended Percussion/Palpation: abdomen soft; abdomen nontender Neurologic: moves all extremities; no focal motor deficits Lymphatic: no cervical or axillary lymphadenopathy Results & Data Results & Data ([facility]) Vital Signs (Past 12 Hours) Vital Signs Temp Pulse Pulse Resp BP Pulse Ox 11/16/19 11:29 37.5 C 72 19 163/76 H 95 11/16/19 07:26 36.8 C 75 20 168/83 H 94 11/16/19 06:19 71 11/16/19 03:22 37 C 70 17 178/72 H 97 11/16/19 01:57 69 Laboratory Results Short CBC 11/16/19 Range/Units 05:18 WBC 5.70 (4.8-10.8) K/uL Hgb 10.5 L (12.0-16.0) g/dL Hct 32.1 L (37-47) % Plt Count 144 (130-400) K/uL BMP 11/16/19 05:18 Sodium 142 Potassium 4.1 Chloride 113 H Carbon Dioxide 25 BUN 11 Creatinine 0.71 Glucose 83 Calcium 7.7 L Cardiac Enzymes 11/15/19 Range/Units 06:30 Total Creatine Kinase 52 (26-192) U/L Medications Administered Current Inpatient Medications Acetaminophen (Acetaminophen 325 Mg Tab) 650 mg PO Q4H PRN PRN Reason: Pain or Fever Stop: 12/14/19 14:20 Last Admin: 11/15/19 09:35 Dose: 650 mg Documented by: Aspirin (Aspirin 81 Mg Ectab) 81 mg PO [facility] Stop: 12/15/19 08:59 Last Admin: 11/16/19 07:58 Dose: 81 mg Documented by: Atorvastatin Calcium (Atorvastatin 40 Mg Tab) 40 mg PO [facility] Stop: 12/14/19 20:59 Last Admin: 11/14/19 20:44 Dose: 40 mg Documented by: Duloxetine HCl (Duloxetine Hcl 30 Mg Cap) 30 mg PO [facility] Stop: 12/15/19 08:59 Last Admin: 11/16/19 07:57 Dose: 30 mg Documented by: Folic Acid (Folic Acid 1 Mg Tab) 1 mg PO [facility] Stop: 12/15/19 08:59 Last Admin: 11/16/19 07:58 Dose: 1 mg Documented by: Ceftriaxone Sodium 1,000 mg/ (Dextrose) 60 mls @ 120 mls/hr IV Q24H [facility]; Protocol Stop: 11/26/19 13:59 Leflunomide (Leflunomide 10 Mg Tab) 10 mg PO [facility] Stop: 12/15/19 08:59 Last Admin: 11/16/19 07:57 Dose: 10 mg Documented by: Methotrexate (Methotrexate Sodium 2.5 Mg Tab) 10 mg PO Fr@0900 [facility] Stop: 12/17/19 08:59 Metoprolol Succinate (Metoprolol Succ 50mg Ext Rel Tab) 50 mg PO BID [facility] Stop: 12/15/19 04:29 Last Admin: 11/16/19 10:12 Dose: 50 mg Documented by: Multivitamins (Multivitamin Tab) 1 tab PO [facility] Stop: 12/15/19 08:59 Last Admin: 11/16/19 07:58 Dose: 1 tab Documented by: Ondansetron HCl (Ondansetron Inj 2 Mg/Ml 2 Ml Vial) 4 mg IV Q6H PRN PRN Reason: Nausea Stop: 12/14/19 14:20 Polyethylene Glycol (Polyethylene (Miralax) 17 Gm Pack) 17 gm PO DAILY PRN PRN Reason: Constipation Stop: 12/14/19 14:20 Prednisone (Prednisone 5 Mg Tab) 5 mg PO [facility] Stop: 12/15/19 08:59 Last Admin: 11/16/19 07:58 Dose: 5 mg Documented by: Ropinirole HCl (Ropinirole Hcl 1 Mg Tablet) 3 mg PO [facility] Stop: 12/14/19 20:59 Last Admin: 11/15/19 20:31 Dose: 3 mg Documented by: Vitamin D (Cholecalciferol 1,000 Units 25 Mcg Tab) 1,000 units PO [facility] Stop: 12/15/19 08:59 Last Admin: 11/16/19 07:58 Dose: 1,000 units Documented by: Warfarin Sodium (Warfarin Sod 2.5 Mg Tab) 2.5 mg PO SuTuWeThSa@1600 [facility] Stop: 12/14/19 15:59 Last Admin: 11/15/19 15:54 Dose: 2.5 mg Documented by: Warfarin Sodium (Warfarin Sod 1.25 Mg Tab) 1.25 mg PO MoFr@1600 [facility] Stop: 12/17/19 15:59 (1) Anemia Anemia type: unspecified type Qualified Code(s): D64.9 - Anemia, unspecified
[2019-11-16] MEDS ORDERED: cephALEXin 500 MG CAP PO SCH (14:00)
[2019-11-16] MEDS ORDERED: cefTRIAXone SODIUM 1,000 MG in DEXTROSE 5% 50 ML IV SCH (14:00)
[2019-11-16] MEDS: WARFARIN SOD 2.5 MG TAB PO SCH (16:42)
--- NOTE | 2019-11-17 08:40 | Discharge Summary ---
Date of Service November 17, 2019 Admission HPI Per Admitting Provider This is a 78-year-old female with PMH of severe aortic valve stenosis, hyperlipidemia, history of paroxysmal SVT, rheumatoid arthritis on prednisone, history of PE on Coumadin, RLS and other medical problems listed below who presents with worsening generalized weakness and abnormal gait x 6 weeks. Initially noticed this in mid September and continues to feel weak and unsteady with ambulation. Does use a cane, but still feels that left leg "does not cooperate" and has had a few falls. Earlier today, felt weak getting out of bed and slid back to a seated position on her bed. Also endorses some lightheadedness and palpitations yesterday that have since resolved. Had a frontal headache this morning with 4 episodes of emesis and 1 of diarrhea. Headache and nausea have resolved with promethazine in the ED. Denies any fever or chills. No known COVID exposure. Denies any speaking or swallowing difficulties. Denies facial droop. No dizziness, chest pain, SOB, wheezing, abdominal pain, hematuria, constipation, hematochezia. Does have plans for evaluation with Dr. Ware of [facility] cardiology next week for possible aortic valve replacement. Admission Exam Per Admitting Provider Physical Exam: General Appearance: WD/WN, vitals as above, NAD, sitting up in bed, pleasant, conversing easily Head: normocephalic, atraumatic Eyes: normal inspection, PERRL, conjunctivae normal, anicteric sclerae ENT: external ear and nose normal, oropharynx normal Neck: trachea midline, no thyromegaly normal visual inspection Respiratory: normal respiratory effort, lungs clear to auscultation, no wheeze, rales, rhonchi. Normal insp/exp effort, no accessory muscle use Cardiovascular: regular rate, rhythm, + systolic murmur with radiation to bilateral carotids, normal peripheral pulses, trace BLE edema. Vessels: no JVD Chest: normal inspection of chest Abdomen/GI: normal bowel sounds, soft, nontender, no hepatosplenomegaly Extremities/Musculoskeletal: no cyanosis or clubbing, RUE,RLE and LUE strength 5/5. LLE strength 4/5 Neurologic: PERRL, EOMI, accommodation nl, no face palsy, no dysarthria, CN's II-XI intact bilaterally and moves all extremities. + Ataxic right-leaning gait, slow [id number] movements of LLE. Attempted Romberg's test but unable to balance with eyes open Psychiatric: A+Ox3, euthymic affect Skin: no rashes, normal color, warm/dry Principal Diagnosis Ataxia with progressive gait disturbance-no definite cause found, generalized weakness, UTI, paroxysmal SVT, history of DVT and PE Discharge Exam Constitutional well developed and well nourished; no acute distress and not ill appearing Eyes PERRL, conjunctivae normal, anicteric sclerae ENMT external ear and nose normal, oropharynx normal Neck trachea midline, no thyromegaly Respiratory normal respiratory effort and + respiratory distress Auscultation: lungs clear to auscultation bilaterally Cardiovascular Rate/Rhythm: regular rate and regular rhythm Heart Sounds: + murmur (3/6 ejection systolic murmur over precordium and aortic area) Extremities: + edema (1+ edema bilaterally) Gastrointestinal (Abdomen) Inspection/Auscultation: abdomen normal to inspection and normal bowel sounds; abdomen not distended Percussion/Palpation: abdomen soft; abdomen nontender Neurologic moves all extremities; no focal motor deficits Lymphatic no cervical or axillary lymphadenopathy Discharge Data Allergies Allergy/AdvReac Type Severity Reaction Status Date / Time Penicillins Allergy Mild RASH Verified 11/14/19 11:13 baclofen Allergy Unknown DIZZY Verified 11/14/19 11:13 Sulfa (Sulfonamide Allergy Unknown HEADACHE Verified 11/14/19 11:13 Antibiotics) Consultations 11/14/19 12:19 ED Decision to Admit Stat 11/14/19 14:21 Consult Case Management - Discharge Planning Routine Consult Case Management - Discharge Planning Routine Consult Neurology Routine 11/14/19 16:52 Consult Cardiology Routine Ordered Studies 11/14/19 09:31 CT head/brain wo con Stat 11/14/19 14:21 MR brain wo/w con Urgent Hospital Course (1) Ataxia: She has progressive gait disturbance not showing any significant MRI of the brain has been negative Appreciate neurology input and recommendation We will continue PT and OT evaluation Medically stable to be discharged home with outpatient physical therapy as recommended (2) Weakness: This is a 78-year-old female with PMH of severe aortic valve stenosis, hyperlipidemia, history of paroxysmal SVT, rheumatoid arthritis on prednisone, history of PE on Coumadin, RLS and other medical problems listed below who presents with worsening generalized weakness and abnormal gait x 6 weeks. Likely contributed by recent UTI with associated comorbid conditions Clinically a lot better today (3) Acute UTI (urinary tract infection): Abnormal UA. Was getting intravenous ceftriaxone since admission Urine is growing gram-negative bacilli and further identification and sensitivities are pending Has had fever last night and antibiotics were changed to cefepime and Dapto as the patient being immunocompromised Will await urine sensitivity report before changing antibiotics Urine culture grew E. coli and is sensitive to cephalosporins She will be given Keflex to continue a total of 7 days of antibiotic (4) History of DVT (deep vein thrombosis): On Coumadin for history of DVT and PE in the past. INR is 1.5 as of 11/15/2019 We will check INR tomorrow INR remains at 1.6 Advised to have regular checkup with the Coumadin clinic (5) Anemia: (6) Rheumatoid arthritis: Continue weekly methotrexate, Arava, prednisone (7) Paroxysmal SVT (supraventricular tachycardia): Noted to have 8 beats run of wide-complex tachycardia Appreciate cardiology input and recommendation Continue beta-danielito Electrolytes normalized Remains in sinus rhythm (8) Severe aortic stenosis: HANS from last month demonstrating severe aortic stenosis. Seeing Dr. Ware of cardiology next week for possible aortic valve replacement Echo as of 11/15/2019 showed: Normal LV, moderate concentric LVH, LV wall motion is normal, EF 60 to 65%, severe calcific aortic valve stenosis, trace MR and Doppler findings do not suggest pulmonary hypertension. Appreciate cardiology input and recommendation (9) RLS (restless legs syndrome): Continue Requip. Prescribed to take 1mg TID but reports taking all 3 pills at night-? Will try to clarify safe dose (10) HLD (hyperlipidemia): Continue statin DVT Ppx: Continue coumadin Code status:FULL PCP: Kenyetta Colbert Dispo: Admit to [facility] Total Time Total Time Spent Total Time Spent (In Minutes): 35 minutes Total Time Includes: Examination of the Patient, Discharge Planning, Medication Reconciliation and Communication With Other Providers Discharge Plan Discharge Items Patient Disposition: Home - Home Health Services Reason For Visit: GENERALIZED WEAKNESS, FALLS, UTI Discharge Diagnosis: Ataxia with progressive gait disturbance-no definite cause found, generalized weakness, UTI, paroxysmal SVT, history of DVT and PE Condition on Discharge: Good Activity: Resume your previous activity Non-emergency contact: Primary Care Provider Call non-emergency contact if: you have any medication questions Follow-up/Referrals: Shea Colbert DO [Primary Care Provider] - 11/20/19 12:00 pm (Date & Time 11/20/2019 12:00 PM Provider Nighat Weinberg DO Department Merged With [facility] ) Diet: Heart Healthy Addtl Attending Provider Instructions: Please take precaution to avoid falls Please have regular follow-up appointment with Coumadin clinic Try to drink more fluid Pending Studies at Discharge: No Stand-Alone Forms: My [facility] [employer], Smoking Cessation Medications and DC Order Prescriptions: New cephalexin 500 mg Capsule 500 mg PO TID 4 Days Qty: 12 RF: 0 Lactinex 1 million cell tablet,chewable 1 tab PO BID Qty: 30 RF: 0 Continued multivitamin Tablet 1 tab PO QAM RF: 0 atorvastatin 40 mg tablet 40 mg PO HS RF: 0 metoprolol succinate 50 mg tablet extended release 24 hr 50 mg PO BID RF: 0 prednisone 5 mg Tablet 5 mg PO QAM RF: 0 coenzyme Q10 10 mg Capsule 10 mg PO HS RF: 0 warfarin 2.5 mg tablet 2.5 mg PO SUTUWETHSA@0800 RF: 0 aspirin 81 mg Tablet,Delayed Release (Dr/Ec) 81 mg PO QAM RF: 0 hydrochlorothiazide 25 mg Tablet 25 mg PO DAILY PRN (Reason: Fluid Retention) RF: 0 cholecalciferol (vitamin D3) [Vitamin D3] 1,000 unit Capsule 1,000 unit PO QAM RF: 0 leflunomide [Arava] 10 mg tablet 10 mg PO QAM RF: 0 clotrimazole-betamethasone 1-0.05 % Cream 1 applic TOPICAL BID PRN (Reason: Itching) RF: 0 folic acid 1 mg Tablet 1 mg PO QAM RF: 0 duloxetine [Cymbalta] 30 mg Capsule,Delayed Release(Dr/Ec) 30 mg PO QAM RF: 0 warfarin 2.5 mg tablet 1.25 mg PO MOFR@0800 RF: 0 methotrexate sodium 2.5 mg tablet 10 mg PO FR RF: 0 ropinirole 1 mg tablet 3 mg PO HS RF: 0 Discharge Orders: Discharge Order (Routine); Ordered 11/16/19 Ordered By: Miguel Gonzáles Admission Data Admit Date/Time: 11/14/19 14:10 Attending Provider: Miguel Gonzáles Admit Provider: Zeynep Hale Primary Care Provider: Shea Colbert Other Providers: Zeynep Hale ; Felix Spencer ; Terence Blanchard Other Interventions: Discharge Summary Assessment (RN) Last Done: 11/16/19 16:45
[2019-11-17] MEDS ORDERED: metHOTREXate sodium 2.5 MG TAB PO SCH (09:00)
[2019-11-17] MEDS ORDERED: WARFARIN SOD 1.25 MG TAB PO SCH (16:00)
[2019-11-17 18:18] LABS: Albumin 3.8 g/dL (3.8-4.8); Alpha 1 Globulin 0.2 g/dL (0.2-0.3); Alpha 2 Globulin 0.7 g/dL (0.5-0.9); Beta-1-Globulin 0.4 g/dL (0.4-0.6); Beta-2-Globulin 0.3 g/dL (0.2-0.5); Monoclonal Protein Band 1 DNR g/dL (NONE DETECTED); Monoclonal Protein Band 2 DNR g/dL (NONE DETECTED); Monoclonal Protein Band 3 DNR g/dL (NONE DETECTED); Total Protein 6.5 g/dL (6.1-8.1)
== END 2019-11-16 17:07 | disposition home or self-care (01) | DRG 690 ==
LOC: 2W 08:44 → ED 08:44 → 2W 13:16 → SUATTDRO 14:10

== ENCOUNTER 2020-05-09 09:11 | Observation (INO) ==
--- NOTE | 2020-05-09 09:44 | Emergency Department Note ---
History of Present Illness General Chief complaint: Chest Pain Stated complaint: CHEST PAIN ON EXERTION - CAME FROM CARDIAC REHAB Time Seen by Provider: 05/09/20 09:29 Source: patient Mode of arrival: ambulatory Limitations: no limitations History of Present Illness Provider complaint: Chest pain Onset (ago): minute(s) 45 Location: chest Radiation: non-radiation Severity: mild Pain Consistency: + now resolved Maximum Pain Intensity: 3 Current Pain Intensity: 0 Quality: + aching Relieved By: + none Exacerbated By: + movement Associated symptoms: + shortness of breath Treatments prior to arrival: none This is an 79-year-old female who is in cardiac rehab performing her usual exercises when she began to get chest tightness that she stated went across her entire upper chest. Patient denies any pain into her back or down her upper extremities. Patient denies any accompanying neck or jaw pain. Patient states she did feel slightly dizzy, denies nausea. Patient states she has been feeling slightly more short of breath recently, and was mildly short of breath with exertion today. Patient states on March 18 she had 2 stents placed on a [facility]. Patient states she sees Dr. Colbert for cardiology locally. States they are also watching a heart valve that may need to be repl aced. Patient denies any recent fevers or chills, cough or cold symptoms. Patient states she frequently has leg swelling with prolonged standing or exertion, however this seems to be better in the morning when she first wakes up. Patient denies any pain in her calves. Patient states since the stents were placed she was started on Plavix also. She denies any other medication changes. Patient denies any other change in diet. Patient denies any coming abdominal pain, change in bowel movements, or change in urine. Patient does have a history of DVT and is anticoagulated. Pt seen during a time of high acuity and national emergency pandemic while wearing PPE. Home Medications Medication Instructions Recorded Confirmed Type atorvastatin 40 mg PO QAM 07/01/18 05/09/20 History coenzyme Q10 10 mg PO QAM 07/01/18 05/09/20 History hydrochlorothiazide 25 mg PO DAILY PRN 07/01/18 05/09/20 History metoprolol succinate 50 mg PO BID 07/01/18 05/09/20 History multivitamin 1 tab PO QAM 07/01/18 05/09/20 History prednisone 5 mg PO QAM 07/01/18 05/09/20 History warfarin 2.5 mg PO SUTUTHSA 07/01/18 05/09/20 History folic acid 1 mg PO QAM 10/17/19 05/09/20 History leflunomide [Arava] 10 mg PO QAM 10/17/19 05/09/20 History methotrexate sodium 10 mg PO FR 11/14/19 05/09/20 History warfarin 3.75 mg PO MOWEFR 11/14/19 05/09/20 History ascorbic acid (vitamin C) [Vitamin 1 g PO BID 05/09/20 05/09/20 History C] cholecalciferol (vitamin D3) 25 mcg PO DAILY 05/09/20 05/09/20 History clopidogrel 75 mg PO QAM 05/09/20 05/09/20 History nitroglycerin 0.4 mg SUBLINGUAL Q5M PRN 05/09/20 05/09/20 History ropinirole 3 mg PO HS 05/09/20 05/09/20 History Allergies Allergy/AdvReac Type Severity Reaction Status Date / Time Penicillins Allergy Mild RASH Verified 05/09/20 09:42 baclofen Allergy Unknown DIZZY Verified 05/09/20 09:42 Sulfa (Sulfonamide Allergy Unknown HEADACHE Verified 05/09/20 09:42 Antibiotics) Past Med/Surg History Medical History CAD (coronary artery disease) 03/18/2020-TYLER x 2 to LAD Chronic anticoagulation Diverticular disease hx diverticulitis GERD (gastroesophageal reflux disease) History of DVT (deep vein thrombosis) a few years ago. remote h/o PE as well. on long-term anticoagulation HLD (hyperlipidemia) HTN (hypertension) Obstructive sleep apnea Paroxysmal SVT (supraventricular tachycardia) Rheumatoid arthritis RLS (restless legs syndrome) Severe aortic stenosis Surgical History H/O colonoscopy H/O knee surgery both knees, replacements H/O laminectomy History of carpal tunnel surgery both right and left History of tooth extraction upper and lower dentures S/P CHANNING-BSO Family History Other Heart disease Rheumatoid arthritis Social History Smoking Status: Former smoker Second Hand Exposure: No; Hx Alcohol Use: No Hx Substance Use: No Preferred Language: Latvian Communication Ability: Effective Portrait Painter Required: No Beliefs That Will Affect Care: Episcopalian Episcopalian Beliefs: Denominational marital status: Current Living Situation: Spouse Current Living Situation Comment: Lives with How many Children do You have: 1 Other Information That Helps Us Care for You: No Feels Safe at Home: Yes Safety Concerns: Feels Safe At This Time Assistive Devices: Cane, Glasses and Wheelchair Review of Systems See HPI for pertinent positives & negatives. and A total of 10 systems reviewed and were otherwise negative Physical Exam Vital Signs Vital Signs - 24 hr 05/09/20 09:17 05/09/20 09:24 05/09/20 09:27 Temperature 36.4 C L Temperature Source Oral Pulse Rate 72 72 Pulse Rate [Apical] 79 Pulse Rate from SpO2 Sensor Respiratory Rate 18 20 19 Respiratory Effort / Characteristics Non-Labored Spontaneous Respiratory Depth Normal Respiratory Pattern Regular Blood Pressure 171/77 H 186/86 H Blood Pressure [Left Arm] 186/86 H Blood Pressure Mean 108 119 Blood Pressure Mean [Left Arm] 119 Pulse Oximetry 97 97 97 Oxygen Delivery Method Room Air Room Air Sepsis Recent Fever Within 48 Hours No Sepsis New/Unexplained Change in Mental Status No Sepsis Action Taken by Nursing No Action Required 05/09/20 09:28 05/09/20 09:30 05/09/20 10:00 Temperature Temperature Source Pulse Rate 75 71 67 Pulse Rate [Apical] Pulse Rate from SpO2 Sensor 69 Respiratory Rate 16 16 17 Respiratory Effort / Characteristics Respiratory Depth Respiratory Pattern Blood Pressure 186/86 H 166/78 H Blood Pressure [Left Arm] Blood Pressure Mean 119 107 Blood Pressure Mean [Left Arm] Pulse Oximetry 96 Oxygen Delivery Method Sepsis Recent Fever Within 48 Hours Sepsis New/Unexplained Change in Mental Status Sepsis Action Taken by Nursing 05/09/20 10:01 05/09/20 10:30 05/09/20 10:31 Temperature Temperature Source Pulse Rate 67 70 67 Pulse Rate [Apical] Pulse Rate from SpO2 Sensor 66 70 67 Respiratory Rate 19 16 17 Respiratory Effort / Characteristics Respiratory Depth Respiratory Pattern Blood Pressure 172/74 H Blood Pressure [Left Arm] Blood Pressure Mean 106 Blood Pressure Mean [Left Arm] Pulse Oximetry 97 99 99 Oxygen Delivery Method Sepsis Recent Fever Within 48 Hours Sepsis New/Unexplained Change in Mental Status Sepsis Action Taken by Nursing 05/09/20 11:00 05/09/20 11:01 05/09/20 11:07 Temperature Temperature Source Pulse Rate 66 65 Pulse Rate [Apical] 69 Pulse Rate from SpO2 Sensor 66 64 Respiratory Rate 18 16 16 Respiratory Effort / Characteristics Respiratory Depth Respiratory Pattern Blood Pressure 182/98 H Blood Pressure [Left Arm] 182/98 H Blood Pressure Mean 126 Blood Pressure Mean [Left Arm] 126 Pulse Oximetry 98 99 99 Oxygen Delivery Method Room Air Sepsis Recent Fever Within 48 Hours Sepsis New/Unexplained Change in Mental Status Sepsis Action Taken by Nursing 05/09/20 11:30 05/09/20 11:31 Temperature Temperature Source Pulse Rate 67 67 Pulse Rate [Apical] Pulse Rate from SpO2 Sensor 67 66 Respiratory Rate 18 14 Respiratory Effort / Characteristics Respiratory Depth Respiratory Pattern Blood Pressure 165/70 H Blood Pressure [Left Arm] Blood Pressure Mean 101 Blood Pressure Mean [Left Arm] Pulse Oximetry 98 99 Oxygen Delivery Method Sepsis Recent Fever Within 48 Hours Sepsis New/Unexplained Change in Mental Status Sepsis Action Taken by Nursing GENERAL: alert, well appearing, well nourished, no distress, non-toxic EYE EXAM: normal conjunctiva, PERRL and EOM's grossly intact OROPHARYNX: no exudate, no erythema, lips, buccal mucosa, and tongue normal and mucous membranes are moist NECK: supple, no nuchal rigidity, no adenopathy, non-tender LUNGS: Clear to auscultation. Normal chest wall mechanics, no w/r/r HEART: no murmurs, S1 normal and S2 normal, no reproducible chest wall tenderness ABDOMEN: abdomen soft, non-tender, normo-active bowel sounds, no masses, no rebound or guarding. BACK: Back is symmetrical on inspection and there is no deformity, no midline tenderness, no CVA tenderness. SKIN: no rashes and no bruising UPPER EXTREMITIES: upper extremities are grossly normal. FROM, nml pulses b/l. LOWER EXTREMITIES: No pitting edema. FROM, nml pulses b/l, well-healed vertical midline incision over the both knees anteriorly consistent with knee replacements NEURO EXAM: Normal sensorium, cranial nerves II-XII grossly intact, normal speech, no gross weakness of arms, no gross weakness of legs. Gross sensation intact. Course Course 1045: Echo results will be obtained by case management from [facility]. Echo performed on April 03, 2020, LVEF 55 to 59%. Severe aortic stenosis noted. Normal size aortic root and proximal ascending aorta, no evidence of pulmonary hypertension. 1130: Patient updated on results. No recurrent symptoms while at rest here. Vital signs stable, patient still hypertensive. 1152: Discussed with [facility] hospitalist service. Administered Medications Warfarin Sodium (Warfarin Sod 2.5 Mg Tab) 2.5 mg PO Anthony@1600 STEPHANIE Stop: 06/08/20 15:59 Last Admin: 05/09/20 16:00 Dose: 2.5 mg Documented by: [id number] Discontinued Medications Amlodipine Besylate (Amlodipine Besylate 5 Mg Tab) 5 mg PO NOW ONE Stop: 05/09/20 13:58 Last Admin: 05/09/20 16:01 Dose: 5 mg Documented by: [id number] Medical Decision Making Differential Diagnosis Differential diagnoses includes but is not limited to acute coronary syndrome, myocardial infarction, pericarditis, pulmonary embolus, aortic dissection, pneumonia, pneumothorax, musculoskeletal, shingles, esophageal. Medical Records Attestation: I reviewed the patient's medical records. Home Medications Current Medication List: was personally reviewed by me Laboratory Data Attestation: I reviewed the patient's lab results. Result diagrams: 05/09/20 09:25 05/09/20 09:25 Lab Results 05/09/20 05/09/20 05/09/20 Range/Units 09:25 09:25 09:25 WBC 7.34 (4.8-10.8) K/uL RBC 3.78 L (4.2-5.4) M/uL Hgb 12.7 (12.0-16.0) g/dL Hct 37.7 (37-47) % MCV 99.7 (80-100) fL MCH 33.6 (25-34) pg MCHC 33.7 (32-36) g/dL RDW Std Deviation 52.9 H (36.4-46.3) fL RDW Coeff of Keila 14.8 H (11.5-14.5) % Plt Count 192 (130-400) K/uL MPV 10.4 (7.4-10.4) fL Immature Gran % (Auto) 0.3 % Neut % (Auto) 71.2 % Lymph % (Auto) 15.3 % [place] % (Auto) 10.5 % Eos % (Auto) 2.3 % Baso % (Auto) 0.4 % Neut # (Auto) 5.23 (1.4-6.5) K/uL Lymph # (Auto) 1.12 L (1.2-3.4) K/uL [place] # (Auto) 0.77 H (0.11-0.59) K/uL Eos # (Auto) 0.17 (0-0.5) K/uL Baso # (Auto) 0.03 (0-0.2) K/uL Immature Gran # (Auto) 0.02 (0.00-0.02) K/uL PT Cancelled INR Cancelled Sodium 142 (136-145) mmol/L Potassium 4.0 (3.5-5.1) mmol/L Chloride 109 H (98-107) mmol/L Carbon Dioxide 28 (21-32) mmol/L Anion Gap 5.0 (3-11) BUN 22 H (7-18) mg/dl Creatinine 0.92 (0.6-1.2) mg/dl Est Cr Clr Drug Dosing Not Reportable Est GFR ( Amer) 68.2 Est GFR (Non-Af Amer) 58.8 BUN/Creatinine Ratio 24.1 H (10-20) Glucose 86 (70-99) mg/dl Calcium 9.1 (8.5-10.1) mg/dl Magnesium 2.0 (1.8-2.4) mg/dl Total Bilirubin 0.7 (0.2-1) mg/dl AST 31 (15-37) U/L ALT 35 (12-78) U/L Alkaline Phosphatase 92 (45-117) U/L Troponin I 0.017 (0-0.045) ng/ml NT-Pro-B Natriuret Pep 1243 (0-1800) pg/ml Total Protein 7.6 (6.4-8.2) gm/dl Albumin 3.5 (3.4-5.0) gm/dl Globulin 4.1 H (2.5-4.0) gm/dl Albumin/Globulin Ratio 0.9 (0.9-2) Lipase 148 (73-393) U/L TSH 7.520 H (0.300-4.500) uIu/ml Free T4 0.88 (0.8-1.6) ng/dl Specimen Hemolysis 05/09/20 Range/Units 10:38 WBC (4.8-10.8) K/uL RBC (4.2-5.4) M/uL Hgb (12.0-16.0) g/dL Hct (37-47) % MCV (80-100) fL MCH (25-34) pg MCHC (32-36) g/dL RDW Std Deviation (36.4-46.3) fL RDW Coeff of Keila (11.5-14.5) % Plt Count (130-400) K/uL MPV (7.4-10.4) fL Immature Gran % (Auto) % Neut % (Auto) % Lymph % (Auto) % [place] % (Auto) % Eos % (Auto) % Baso % (Auto) % Neut # (Auto) (1.4-6.5) K/uL Lymph # (Auto) (1.2-3.4) K/uL [place] # (Auto) (0.11-0.59) K/uL Eos # (Auto) (0-0.5) K/uL Baso # (Auto) (0-0.2) K/uL Immature Gran # (Auto) (0.00-0.02) K/uL PT 20.0 H INR 2.1 H Sodium (136-145) mmol/L Potassium (3.5-5.1) mmol/L Chloride (98-107) mmol/L Carbon Dioxide (21-32) mmol/L Anion Gap (3-11) BUN (7-18) mg/dl Creatinine (0.6-1.2) mg/dl Est Cr Clr Drug Dosing Est GFR ( Amer) Est GFR (Non-Af Amer) BUN/Creatinine Ratio (10-20) Glucose (70-99) mg/dl Calcium (8.5-10.1) mg/dl Magnesium (1.8-2.4) mg/dl Total Bilirubin (0.2-1) mg/dl AST (15-37) U/L ALT (12-78) U/L Alkaline Phosphatase (45-117) U/L Troponin I (0-0.045) ng/ml NT-Pro-B Natriuret Pep (0-1800) pg/ml Total Protein (6.4-8.2) gm/dl Albumin (3.4-5.0) gm/dl Globulin (2.5-4.0) gm/dl Albumin/Globulin Ratio (0.9-2) Lipase (73-393) U/L TSH (0.300-4.500) uIu/ml Free T4 (0.8-1.6) ng/dl Specimen Hemolysis Imaging Data Radiologist's Impression: XR chest 1V portable HISTORY: Atypical chest pain COMPARISON: Chest 11/14/2019. FINDINGS: No pneumothorax. No pleural effusions. The heart is mildly enlarged. Stable focal density at the base of the left lower lobe. Otherwise, the lungs are clear. No acute rib fractures. IMPRESSION: Stable small focal density at the left lung base. This favors scarring. Otherwise, no acute process within the chest. ACT 112: Negative or not required by law. Electronically signed by: João Raymond M.D. 05/09/2020 10:17 AM ECG Data Attestation: I personally reviewed and interpreted this ECG as follows: Indication: + chest pain Rate (beats per minute): 71 Rhythm: + normal sinus ECG Intervals/blocks: + First degree AV block, + Normal QRS and + Normal QT ECG [place]: + Normal ECG ST segments: + Normal ST segments Blood Pressure Blood Pressure Findings: Elevated blood pressure Blood Pressure Disposition: further management by hospitalist HONG Narrative This is an overly female who presents from cardiac rehab after having chest pain during exertion this morning. Patient had 2 stents placed back in February and is also being monitored due to history of severe aortic stenosis. Patient does see local cardiology. By the time of my evaluation the emergency room patient states her pain had resolved. Patient was noted to be hypertensive however otherwise hemodynamically stable. Patient placed on a panel machine tender, labs drawn and sent, chest x-ray performed. Patient's troponin negative, INR therape utic, chest x-ray reassuring. Patient's other labs also normal. Patient had no recurrent pain while here. Due to elevated heart score as well as severe , I feel patient is high risk and should receive additional inpatient evaluation and monitoring. Case discussed with hospitalist team who was in agreement with plan. An order was placed for continuous cardiac monitoring. The monitor shows a rate of _68_ with _normal sinus__ rhythm. Impression & Plan Chest pain, HTN (hypertension), Severe aortic stenosis Discharge Plan Visit Data Chief Complaint: Chest Pain Stated Complaint: CHEST PAIN ON EXERTION - CAME FROM CARDIAC REHAB ED Provider: Deya Browne Discharge Problem: Chest pain, HTN (hypertension), Severe aortic stenosis Patient Disposition: Admitted As Inpatient Discharge Instructions Interventions: ED Discharge Assessment Last Done: 05/09/20 15:00 Discharge Problem: Chest pain Qualifiers: Chest pain type: unspecified Qualified Code(s): R07.9 - Chest pain, unspecified HTN (hypertension) Qualifiers: Hypertension type: essential hypertension Qualified Code(s): I10 - Essential (primary) hypertension
[2020-05-09 10:10] LABS: Basophils # (auto) 0.03 K/uL (0-0.2); Basophils % (auto) 0.4 %; Eosinophils # (auto) 0.17 K/uL (0-0.5); Eosinophils % (auto) 2.3 %; Hematocrit (blood only) 37.7 % (37-47); Hemoglobin 12.7 g/dL (12.0-16.0); Immature Granulocytes # (auto) 0.02 K/uL (0.00-0.02); Immature Granulocytes % (auto) 0.3 %; Lymphocytes # (auto) 1.12 K/uL (1.2-3.4); Lymphocytes % (auto) 15.3 %; Mean Corpuscular Hemoglobin 33.6 pg (25-34); Mean Corpuscular Hgb Conc 33.7 g/dL (32-36); Mean Corpuscular Volume 99.7 fL (80-100); Mean Platelet Volume 10.4 fL (7.4-10.4); Monocytes # (auto) 0.77 K/uL (0.11-0.59); Monocytes % (auto) 10.5 %; Neutrophils # (auto) 5.23 K/uL (1.4-6.5); Neutrophils % (auto) 71.2 %; Platelet Count 192 K/uL (130-400); RDW Coefficient of Variation 14.8 % (11.5-14.5); RDW Standard Deviation 52.9 fL (36.4-46.3); Red Blood Count 3.78 M/uL (4.2-5.4); White Blood Count 7.34 K/uL (4.8-10.8)
--- NOTE | 2020-05-09 10:18 | XRay Report ---
XR chest 1V portable HISTORY: Atypical chest pain COMPARISON: Chest 11/14/2019. FINDINGS: No pneumothorax. No pleural effusions. The heart is mildly enlarged. Stable focal density a t the base of the left lower lobe. Otherwise, the lungs are clear. No acute rib fractures. IMPRESSION: Stable small focal density at the left lung base. This favors scarring. Otherwise, no acute process w ithin the chest. ACT 112: Negative or not required by law. Electronically signed by: João Raymond M.D. 05/09/2020 10:17 AM
[2020-05-09 10:21] LABS: Alanine Aminotransferase 35 U/L (12-78); Albumin Level 3.5 gm/dl (3.4-5.0); Aspartate Aminotransferase 31 U/L (15-37); BUN Creatinine Ratio 24.1 (10-20); Blood Urea Nitrogen 22 mg/dl (7-18); Calcium 9.1 mg/dl (8.5-10.1); Carbon Dioxide 28 mmol/L (21-32); Chloride 109 mmol/L (98-107); Est GFR (African American) 68.2; Est GFR (Non-African American) 58.8; Glucose 86 mg/dl (70-99); Lipase 148 U/L (73-393); Sodium 142 mmol/L (136-145)
[2020-05-09 10:33] LABS: Albumin Globulin Ratio 0.9 (0.9-2); Alkaline Phosphatase 92 U/L (45-117); Bilirubin,Total 0.7 mg/dl (0.2-1); Globulin 4.1 gm/dl (2.5-4.0); NT Pro B Type Natriuretic Pept 1243 pg/ml (0-1800); Total Protein 7.6 gm/dl (6.4-8.2); Troponin I 0.017 ng/ml (0-0.045)
[2020-05-09 10:59] LABS: T4 Free Thyroxine 0.88 ng/dl (0.8-1.6)
[2020-05-09 11:01] LABS: INR 2.1 (0.9-1.1)
--- NOTE | 2020-05-09 11:08 | Electrocardiogram Report ---
Test Reason : Blood Pressure : / mmHG Vent. Rate : 071 BPM Atrial Rate : 071 BPM P-R Int : 206 ms QRS Dur : 072 ms QT Int : 388 ms P-R-T Axes : 037 -26 068 degrees QTc Int : 421 ms Normal sinus rhythm Voltage criteria for left ventricular hypertrophy Abnormal ECG When compared with ECG of 15-NOV-2019 07:03, T wave inversion no longer evident in Inferior leads Nonspecific T wave abnormality now evident in Lateral leads Confirmed by Xander Guevara ([id number]) on 05/09/2020 11:08:09 AM Referred By: REFERRED SELF Confirmed By:Xander Guevara
--- NOTE | 2020-05-09 13:36 | History & Physical Report ---
Date of Service May 09, 2020 Assessment & Plan (1) Chest pain: (2) CAD (coronary artery disease): (3) HTN (hypertension): -Admit to telemetry -Patient presenting from cardiac rehab for evaluation of chest pain -03/18/2020 -patient underwent cardiac cath for further evaluation of aortic stenosis which was interpreted as moderate at the time of cath. Patient underwent TYLER x 2 to LAD. -Initial troponin negative, EKG without acute ST changes -Found to be hypertensive, 186/86 -Symptoms may be due to hypertensive urgency -Continue cycle cardiac enzymes, check resting echo -Cardiology consult, case discussed with Dr. Blanchard -Continue aspirin, Plavix, statin, beta-danielito (4) Aortic stenosis: -Interpreted as moderate during cardiac cath 02/2020 -Repeat resting echo (5) Paroxysmal SVT (supraventricular tachycardia): -Continue beta-danielito (6) History of DVT (deep vein thrombosis): -Anticoagulated on Coumadin, INR 2.1 (7) Rheumatoid arthritis: -Continue prednisone, leflunomide, methotrexate (8) DVT prophylaxis: -On Coumadin, INR 2.1 History of Present Illness Chief Complaint: Chest pain Primary Care Provider: Shea Colbert DO 79-year-old female with PMH CAD, aortic stenosis, DVT/PE anticoagulated on Coumadin, paroxysmal SVT, rheumatoid arthritis, and other problems listed below who presents the ED for evaluation of chest pain. As part of evaluation for aortic stenosis, patient underwent cardiac cath 03/18/2020 and received TYLER x 2 to LAD. Aortic stenosis was interpreted as moderate during cath and there are currently no plans for repair or replacement. Patient was at cardiac rehab today when she reports that she felt fatigued during her first exercises. She then transition to the bike when she developed upper left arm pain that radiated across her chest. She describes the pain as an ache. She also reports associated shortness of breath and lightheadedness. No diaphoresis or nausea. 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 This resolves with rest. Patient reports he otherwise has been feeling well recently. Denies orthopnea and worsening lower extremity edema. No syncopal events. Denies fevers and chills. No abdominal pain, vomiting, diarrhea. No urinary symptoms. In the ED, initial troponin is negative and EKG does not show any acute ST changes. BP is elevated 186/86. Patient reports taking all medications as prescribed this morning. Allergies Allergy/AdvReac Type Severity Reaction Status Date / Time Penicillins Allergy Mild RASH Verified 05/09/20 09:42 baclofen Allergy Unknown DIZZY Verified 05/09/20 09:42 Sulfa (Sulfonamide Allergy Unknown HEADACHE Verified 05/09/20 09:42 Antibiotics) Home Medications Medication Instructions Recorded Confirmed Type atorvastatin 40 mg PO QAM 07/01/18 05/09/20 History coenzyme Q10 10 mg PO QAM 07/01/18 05/09/20 History hydrochlorothiazide 25 mg PO DAILY PRN 07/01/18 05/09/20 History metoprolol succinate 50 mg PO BID 07/01/18 05/09/20 History multivitamin 1 tab PO QAM 07/01/18 05/09/20 History prednisone 5 mg PO QAM 07/01/18 05/09/20 History warfarin 2.5 mg PO SUTUTHSA 07/01/18 05/09/20 History folic acid 1 mg PO QAM 10/17/19 05/09/20 History leflunomide [Arava] 10 mg PO QAM 10/17/19 05/09/20 History methotrexate sodium 10 mg PO FR 11/14/19 05/09/20 History warfarin 3.75 mg PO MOWEFR 11/14/19 05/09/20 History ascorbic acid (vitamin C) [Vitamin 1 g PO BID 05/09/20 05/09/20 History C] cholecalciferol (vitamin D3) 25 mcg PO DAILY 05/09/20 05/09/20 History clopidogrel 75 mg PO QAM 05/09/20 05/09/20 History nitroglycerin 0.4 mg SUBLINGUAL Q5M PRN 05/09/20 05/09/20 History ropinirole 3 mg PO HS 05/09/20 05/09/20 History Past Med/Surg History Medical History CAD (coronary artery disease) 03/18/2020-TYLER x 2 to LAD Chronic anticoagulation Diverticular disease hx diverticulitis GERD (gastroesophageal reflux disease) History of DVT (deep vein thrombosis) a few years ago. remote h/o PE as well. on assisted anticoagulation HLD (hyperlipidemia) HTN (hypertension) Obstructive sleep apnea Paroxysmal SVT (supraventricular tachycardia) Rheumatoid arthritis RLS (restless legs syndrome) Severe aortic stenosis Surgical History H/O colonoscopy H/O knee surgery both knees, replacements H/O laminectomy History of carpal tunnel surgery both right and left History of tooth extraction upper and lower dentures S/P CHANNING-BSO Family History Other Heart disease Rheumatoid arthritis Social History Smoking Status: Former smoker Second Hand Exposure: No; Hx Alcohol Use: No Hx Substance Use: No Preferred Language: Spanish Communication Ability: Effective Site Interpreter Required: No Beliefs That Will Affect Care: Adventist Adventist Beliefs: Shinto marital status: Current Living Situation: Spouse Current Living Situation Comment: Lives with How many Children do You have: 1 Other Information That Helps Us Care for You: No Feels Safe at Home: Yes Safety Concerns: Feels Safe At This Time Assistive Devices: Cane, Glasses and Wheelchair Review of Systems Review of Systems: ROS per HPI, all other systems reviewed and negative Physical Exam Constitutional: WD/WN, vitals as above Eyes: PERRL, conjunctivae normal, anicteric sclerae ENMT: external ear and nose normal, oropharynx normal Respiratory: normal respiratory effort, lungs clear to auscultation Cardiovascular: Rate/Rhythm: regular rate and regular rhythm Heart Sounds: + murmur (Grade 4/6, systolic) Vessels: normal peripheral pulses Extremities: + edema (Trace edema BLE) Gastrointestinal (Abdomen): normal bowel sounds, soft, nontender, no hepatosplenomegaly Musculoskeletal: no cyanosis or clubbing, extremities motor strength 5/5 Skin: no rashes, warm and dry Neurologic: PERRL, EOMI, accommodation nl, no face palsy, no dysarthria Psychiatric: A+Ox3, euthymic affect Results & Data Results & Data ([facility]) Vital Signs (Past 12 Hours) Vital Signs Temp Pulse Pulse Resp BP BP Pulse Ox 05/09/20 11:07 69 16 182/98 H 99 05/09/20 10:31 67 17 99 05/09/20 10:30 70 16 172/74 H 99 05/09/20 10:01 67 19 97 05/09/20 10:00 67 17 166/78 H 96 05/09/20 09:30 71 16 05/09/20 09:28 75 16 186/86 H 05/09/20 09:27 72 19 186/86 H 97 05/09/20 09:24 79 20 186/86 H 97 05/09/20 09:17 36.4 C L 72 18 171/77 H 97 Laboratory Results Short CBC 05/09/20 Range/Units 09:25 WBC 7.34 (4.8-10.8) K/uL Hgb 12.7 (12.0-16.0) g/dL Hct 37.7 (37-47) % Plt Count 192 (130-400) K/uL BMP 05/09/20 09:25 Sodium 142 Potassium 4.0 Chloride 109 H Carbon Dioxide 28 BUN 22 H Creatinine 0.92 Glucose 86 Calcium 9.1 Cardiac Enzymes 05/09/20 Range/Units 09:25 Troponin I 0.017 (0-0.045) ng/ml Liver Function 05/09/20 Range/Units 09:25 Total Bilirubin 0.7 (0.2-1) mg/dl AST 31 (15-37) U/L ALT 35 (12-78) U/L Alkaline Phosphatase 92 (45-117) U/L Albumin 3.5 (3.4-5.0) gm/dl Diagnostic Findings CXR IMPRESSION: Stable small focal density at the left lung base. This favors scarring. Otherwise, no acute process within the chest. Code Status & VTE Plan Code Status Patient is a full code as per my discussion with her. VTE Prophylaxis Plan VTE Prophylaxis will be ordered: No Supervising Physician Co-Signing Physician Notes Attending addendum: The patient was seen and examined in emergency room She has significant CAD status post 2 stent placement in LAD recently also moderate to severe aortic stenosis She was admitted to cardiac rehab clinic with chest pain and shortness of breath Denies any symptoms during my examination in the emergency room On examination No apparent distress at rest but noted to have very high blood pressure of systolic 195/69 Chest-clear to auscultate bilaterally Heart-S1-S2 with a 3/6 systolic murmur over aortic area Abdomen-benign, bowel sound present Extremities-trace edema bilaterally SOCIAL AND 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 No focal sensory and motor deficit appreciated Her admission labs, EKG and imaging studies reviewed Chest pain in setting of CAD with recent stent placement and aortic stenosis and very high blood pressure Cardiology consulted Agree with assessment and plan as outlined above by CANDIDA Devries Dr
--- NOTE | 2020-05-09 13:36 | Cardiology Consultation ---
Date of Consultation May 09, 2020 Assessment & Plan (1) Chest pain: Patient is a complex 79-year-old female issues as outlined, borderline severe calcific aortic stenosis, coronary artery disease status post coronary mention left anterior descending 03/18/2021. Noted chronic right coronary occlusion at the time. Significant systolic hypertension observed during cardiac catheterization currently Patient today well exercising in cardiac rehab experience chest tightness radiating to left shoulder relieved with nitroglycerin and rest. Current EKGs and cardiac enzyme do not suggest acute coronary syndrome or ischemia. Patient still hypertensive. Symptoms may be being exacerbated by hypertension or or valvular heart disease with chronic coronary artery disease. Plan will be to treat hypertension if symptoms persist or cardiac enzymes evolve patient may warrant more aggressive treatment regarding aortic valve We will follow in hospital In the interim we will add amlodipine 5 mg now and every morning, consider adding low-dose nitrates to her regimen as well. Patient will likely warrant more frequent use of hydrochlorothiazide Patient already established with valve clinic at [facility] (2) Aortic stenosis: (3) CAD (coronary artery disease): (4) HTN (hypertension): History of Present Illness Reason for Consultation: Chest pain, hypertension Requesting Physician: Ani Das History of Present Illness Patient is an 79-year-old female with ongoing issues which include 1. Calcific aortic valve disease with borderline severe aortic stenosis 2. Obstructive sleep apnea/restless leg syndrome 3. Past DVT pulmonary embolus on chronic anticoagulation with warfarin 4. Paroxysmal supraventricular tachycardia 5. Rheumatoid arthritis on chronic immunosuppressive therapy with methotrexate 6. Coronary artery disease status post diagnostic cardiac catheterization February 2020 and subsequent coronary intervention with 2 overlapping drug- eluting stents to the mid left anterior descending. Right coronary artery notably occluded chronic 7. Systolic hypertension Patient is referred now with symptoms of chest pressure and tightness across the chest into the left arm while exercising at cardiac rehab. As noted above patient underwent coronary intervention 03/18/2020 in the process of evaluation of aortic stenosis for mid LAD disease and chronic right coronary occlusion. Patient has begun cardiac rehab for the past 2 weeks. She is noted symptoms of marked fatigue following completion of episodes. Today while exercising had tightness across her chest into her left shoulder. Symptoms were relieved with one sublingual nitroglycerin. Patient markedly hypertensive on physical examination. Blood pressures previously noted elevated during diagnostic cardiac catheterization. Currently comfortable without complaint. She denies fevers chills unexplained infections. Notes no bleeding difficulties. Notes no orthopnea PND or peripheral edema. Notes no headache or visual changes. Denies syncope or near syncope. Has been taking medications as prescribed. Has a as needed order for hydrochlorothiazide but not used recently with mild dependent edema that resolves overnight Allergies Allergy/AdvReac Type Severity Reaction Status Date / Time Penicillins Allergy Mild RASH Verified 05/09/20 09:42 baclofen Allergy Unknown DIZZY Verified 05/09/20 09:42 Sulfa (Sulfonamide Allergy Unknown HEADACHE Verified 05/09/20 09:42 Antibiotics) Home Medications Medication Instructions Recorded Confirmed Type atorvastatin 40 mg PO QAM 07/01/18 05/09/20 History coenzyme Q10 10 mg PO QAM 07/01/18 05/09/20 History hydrochlorothiazide 25 mg PO DAILY PRN 07/01/18 05/09/20 History metoprolol succinate 50 mg PO BID 07/01/18 05/09/20 History multivitamin 1 tab PO QAM 07/01/18 05/09/20 History prednisone 5 mg PO QAM 07/01/18 05/09/20 History warfarin 2.5 mg PO SUTUTHSA 07/01/18 05/09/20 History folic acid 1 mg PO QAM 10/17/19 05/09/20 History leflunomide [Arava] 10 mg PO QAM 10/17/19 05/09/20 History methotrexate sodium 10 mg PO FR 11/14/19 05/09/20 History warfarin 3.75 mg PO MOWEFR 11/14/19 05/09/20 History ascorbic acid (vitamin C) [Vitamin 1 g PO BID 05/09/20 05/09/20 History C] cholecalciferol (vitamin D3) 25 mcg PO DAILY 05/09/20 05/09/20 History clopidogrel 75 mg PO QAM 05/09/20 05/09/20 History nitroglycerin 0.4 mg SUBLINGUAL Q5M PRN 05/09/20 05/09/20 History ropinirole 3 mg PO HS 05/09/20 05/09/20 History Patient History Medical History CAD (coronary artery disease) 03/18/2020-TYLER x 2 to LAD Chronic anticoagulation Diverticular disease hx diverticulitis GERD (gastroesophageal reflux disease) History of DVT (deep vein thrombosis) a few years ago. remote h/o PE as well. on detention anticoagulation HLD (hyperlipidemia) HTN (hypertension) Obstructive sleep apnea Paroxysmal SVT (supraventricular tachycardia) Rheumatoid arthritis RLS (restless legs syndrome) Severe aortic stenosis Surgical History H/O colonoscopy H/O knee surgery both knees, replacements H/O laminectomy History of carpal tunnel surgery both right and left History of tooth extraction upper and lower dentures S/P CHANNING-BSO Family History Other Heart disease Rheumatoid arthritis Social History Smoking Status: Former smoker Second Hand Exposure: No; Hx Alcohol Use: No Hx Substance Use: No Preferred Language: Libyan Communication Ability: Effective Math Interventionist Required: No Beliefs That Will Affect Care: Jewish Jewish Beliefs: Nondenominational marital status: Current Living Situation: Spouse Current Living Situation Comment: Lives with How many Children do You have: 1 Other Information That Helps Us Care for You: No Feels Safe at Home: Yes Safety Concerns: Feels Safe At This Time Assistive Devices: Cane, Glasses and Wheelchair Review of Systems Review of Systems: All systems reviewed & are unremarkable except as noted in HPI & below Physical Exam Constitutional: WD/WN, vitals as above Eyes: PERRL, conjunctivae normal, anicteric sclerae ENMT: external ear and nose normal, oropharynx normal Neck: trachea midline, no thyromegaly normal visual inspection Respiratory: normal respiratory effort, lungs clear to auscultation Cardiovascular: Rate/Rhythm: regular rate and regular rhythm Heart Sounds: normal S1 and + murmur (Harsh wheezy grade 3/6 systolic murmur, no diastolic murmur); + abnormal S2 (Obscured by murmur) Palpation: normal PMI Vessels: no JVD Extremities: no edema Gastrointestinal (Abdomen): normal bowel sounds, soft, nontender, no hepatosplenomegaly Musculoskeletal: no cyanosis or clubbing, extremities motor strength 5/5 Mild lymphedema changes Skin: no rashes, warm and dry Neurologic: PERRL, EOMI, accommodation nl, no face palsy, no dysarthria moves all extremities Psychiatric: A+Ox3, euthymic affect Results & Data ([facility]) Vital Signs (Past 12 Hours) Vital Signs Temp Pulse Pulse Resp BP BP Pulse Ox 05/09/20 11:07 69 16 182/98 H 99 05/09/20 10:31 67 17 99 05/09/20 10:30 70 16 172/74 H 99 05/09/20 10:01 67 19 97 05/09/20 10:00 67 17 166/78 H 96 05/09/20 09:30 71 16 05/09/20 09:28 75 16 186/86 H 05/09/20 09:27 72 19 186/86 H 97 05/09/20 09:24 79 20 186/86 H 97 05/09/20 09:17 36.4 C L 72 18 171/77 H 97 Laboratory Results Laboratory Results - last 24 hr 05/09/20 05/09/20 05/09/20 09:25 09:25 09:25 WBC 7.34 RBC 3.78 L Hgb 12.7 Hct 37.7 MCV 99.7 MCH 33.6 MCHC 33.7 RDW Std Deviation 52.9 H RDW Coeff of Keila 14.8 H Plt Count 192 MPV 10.4 Immature Gran % (Auto) 0.3 Neut % (Auto) 71.2 Lymph % (Auto) 15.3 [place] % (Auto) 10.5 Eos % (Auto) 2.3 Baso % (Auto) 0.4 Neut # (Auto) 5.23 Lymph # (Auto) 1.12 L [place] # (Auto) 0.77 H Eos # (Auto) 0.17 Baso # (Auto) 0.03 Immature Gran # (Auto) 0.02 PT Cancelled INR Cancelled Sodium 142 Potassium 4.0 Chloride 109 H Carbon Dioxide 28 Anion Gap 5.0 BUN 22 H Creatinine 0.92 Est Cr Clr Drug Dosing Not Reportable Est GFR ( Amer) 68.2 Est GFR (Non-Af Amer) 58.8 BUN/Creatinine Ratio 24.1 H Glucose 86 Calcium 9.1 Magnesium 2.0 Total Bilirubin 0.7 AST 31 ALT 35 Alkaline Phosphatase 92 Troponin I 0.017 NT-Pro-B Natriuret Pep 1243 Total Protein 7.6 Albumin 3.5 Globulin 4.1 H Albumin/Globulin Ratio 0.9 Lipase 148 TSH 7.520 H Free T4 0.88 Specimen Hemolysis COVID-19 Eval Order SARS-CoV-2, RNA, NAAT 05/09/20 05/09/20 05/09/20 10:38 11:55 11:55 WBC RBC Hgb Hct MCV MCH MCHC RDW Std Deviation RDW Coeff of Keila Plt Count MPV Immature Gran % (Auto) Neut % (Auto) Lymph % (Auto) [place] % (Auto) Eos % (Auto) Baso % (Auto) Neut # (Auto) Lymph # (Auto) [place] # (Auto) Eos # (Auto) Baso # (Auto) Immature Gran # (Auto) PT 20.0 H INR 2.1 H Sodium Potassium Chloride Carbon Dioxide Anion Gap BUN Creatinine Est Cr Clr Drug Dosing Est GFR ( Amer) Est GFR (Non-Af Amer) BUN/Creatinine Ratio Glucose Calcium Magnesium Total Bilirubin AST ALT Alkaline Phosphatase Troponin I NT-Pro-B Natriuret Pep Total Protein Albumin Globulin Albumin/Globulin Ratio Lipase TSH Free T4 Specimen Hemolysis COVID-19 Eval Order Covid19 [facility] SARS-CoV-2, RNA, NAAT NEGATIVE
[2020-05-09] MEDS ORDERED: amLODIPine BESYLATE 5 MG TAB PO ONE (13:57)
[2020-05-09] MEDS ORDERED: ACETAMINOPHEN 325 MG TAB PO PRN (15:11)
[2020-05-09] MEDS ORDERED: NITROGLYCERIN SL 0.4 MG/TAB TAB SL PRN (15:11)
[2020-05-09] MEDS ORDERED: WARFARIN SOD 2.5 MG TAB PO SCH (16:00)
[2020-05-09 16:03] LABS: Appearance Urine Clear (Clear); Bacteria Urine Automated 2+ (Negative); Bilirubin Urine Negative (Negative); Blood Urine Negative (Negative); Cast Urine Automated 0 /lpf (0-5); Color Urine Yellow; Glucose Urine UA Negative (Negative); Ketones Urine Negative (Negative); Leukocyte Esterase Urine Trace (Negative); Nitrite Urine Negative (Negative); Protein Urine Negative (Negative); RBC Urine Automated 0-4 /hpf (0-4); Specific Gravity Urine 1.008 (1.000-1.030); Urobilinogen Urine Negative (Negative)
[2020-05-09] MEDS: METOPROLOL SUCC 50MG EXT REL TAB PO SCH (20:06)
[2020-05-09] MEDS ORDERED: rOPINIRole HCL 1 MG TABLET PO SCH (21:00)
[2020-05-10 06:03] LABS: Hematocrit (blood only) 34.9 % (37-47); Hemoglobin 11.6 g/dL (12.0-16.0); Mean Corpuscular Hemoglobin 32.8 pg (25-34); Mean Corpuscular Hgb Conc 33.2 g/dL (32-36); Mean Corpuscular Volume 98.6 fL (80-100); Platelet Count 172 K/uL (130-400); RDW Coefficient of Variation 14.8 % (11.5-14.5); RDW Standard Deviation 52.6 fL (36.4-46.3); Red Blood Count 3.54 M/uL (4.2-5.4); White Blood Count 6.72 K/uL (4.8-10.8)
[2020-05-10 06:12] LABS: INR 1.7 (0.9-1.1); Prothrombin Time 16.2 Seconds (9.0-12.0)
[2020-05-10 06:33] LABS: BUN Creatinine Ratio 25.2 (10-20); Calcium 8.6 mg/dl (8.5-10.1); Creatinine Clr Calc Pharmacy 42.6 ml/min; Est GFR (African American) 81.9; Est GFR (Non-African American) 70.7; Potassium 3.7 mmol/L (3.5-5.1)
[2020-05-10] MEDS: METOPROLOL SUCC 50MG EXT REL TAB PO SCH (08:07)
[2020-05-10] MEDS ORDERED: CHOLECALCIFEROL 1,000 UNITS 25 MCG TAB PO SCH (09:00)
[2020-05-10] MEDS ORDERED: predniSONE 5 MG TAB PO SCH (09:00)
[2020-05-10] MEDS ORDERED: metHOTREXate sodium 2.5 MG TAB PO SCH (09:00)
[2020-05-10] MEDS ORDERED: ATORVASTATIN 40 MG TAB PO SCH (09:00)
[2020-05-10] MEDS ORDERED: CLOPIDOGREL BISULFATE 75 MG TAB PO SCH (09:00)
[2020-05-10] MEDS ORDERED: amLODIPine BESYLATE 5 MG TAB PO SCH (09:00)
[2020-05-10] MEDS ORDERED: LEFLUNOMIDE 10 MG TAB PO SCH (09:00)
--- NOTE | 2020-05-10 12:07 | Cardiology Progress Note ---
Date of Service May 10, 2020 Assessment & Plan (1) Chest pain: Patient is a complex 79-year-old female issues as outlined, borderline severe calcific aortic stenosis, coronary artery disease status post coronary mention left anterior descending 03/18/2021. Noted chronic right coronary occlusion at the time. Significant systolic hypertension observed during cardiac catheterization currently Patient exercising in cardiac rehab experience chest tightness radiating to left shoulder relieved with nitroglycerin and rest. Current EKGs and cardiac enzyme do not suggest acute coronary syndrome or ischemia. Patient still hypertensive. Symptoms may be being exacerbated by hypertension or or valvular heart disease with chronic coronary artery disease. Reevaluation again this morning reveals no evidence of acute coronary ischemia. Blood pressures are trending better with the addition of amlodipine to her regimen Recommendations: Add amlodipine 5 mg p.o. daily to outpatient regimen. Patient to begin using hydrochlorothiazide 25 mg 2 days/week. Rather than just as needed Follow-up [facility] cardiology in 1 to 2 weeks. Patient to report any worsening symptoms. Patient to resume cardiac rehab cautiously. We will make arrangements to expedite valve clinic evaluation (2) Aortic stenosis: (3) CAD (coronary artery disease): (4) HTN (hypertension): Admission and Anticipated Discharge Date Admission Date: May 09, 2020 Subjective Patient was seen and examined, chart, medications, telemetry reviewed. No chest pain or discomfort overnight. Ambulatory in room this morning without difficulty. No dizziness or lightheadedness. No orthopnea PND or peripheral edema. No fevers chills cough. Blood pressures trending towards much better control. Review of Systems Review of Systems: All systems reviewed & are unremarkable except as noted in HPI & below Physical Exam Constitutional: WD/WN, vitals as above Eyes: PERRL, conjunctivae normal, anicteric sclerae ENMT: external ear and nose normal, oropharynx normal Neck: trachea midline, no thyromegaly normal visual inspection Respiratory: normal respiratory effort, lungs clear to auscultation Cardiovascular: Rate/Rhythm: regular rate and regular rhythm Heart Sounds: normal S1 and + murmur (Harsh wheezy grade 3/6 systolic murmur, no diastolic murmur); + abnormal S2 (Obscured by murmur) Palpation: normal PMI Vessels: no JVD Extremities: no edema Gastrointestinal (Abdomen): normal bowel sounds, soft, nontender, no hepatosplenomegaly Musculoskeletal: no cyanosis or clubbing, extremities motor strength 5/5 Skin: no rashes, warm and dry Neurologic: PERRL, EOMI, accommodation nl, no face palsy, no dysarthria m oves all extremities Psychiatric: A+Ox3, euthymic affect Results & Data ([facility]) Vital Signs (Past 12 Hours) Vital Signs Temp Pulse Pulse Resp BP Pulse Ox 05/10/20 08:10 63 05/10/20 08:05 37.5 C 72 18 129/66 96 05/10/20 03:55 37.2 C 62 18 155/75 H 97 Laboratory Results Laboratory Results - last 24 hr 05/09/20 05/09/20 05/09/20 11:55 12:10 16:03 WBC RBC Hgb Hct MCV MCH MCHC RDW Std Deviation RDW Coeff of Keila Plt Count MPV PT INR Sodium Potassium Chloride Carbon Dioxide Anion Gap BUN Creatinine Est Cr Clr Drug Dosing Est GFR ( Amer) Est GFR (Non-Af Amer) BUN/Creatinine Ratio Glucose Calcium Troponin I 0.023 Urine Color Yellow Urine Appearance Clear Urine pH 7.0 Ur Specific [place] 1.008 Urine Protein Negative Urine Glucose (UA) Negative Urine Ketones Negative Urine Blood Negative Urine Nitrite Negative Urine Bilirubin Negative Urine Urobilinogen Negative Ur Leukocyte Esterase Trace H Urine WBC (Auto) 1-5 Urine RBC (Auto) 0-4 U Hyaline Cast (Auto) 0 U Epithel Cells (Auto) 5-10 H Urine Bacteria (Auto) 2+ H SARS-CoV-2, RNA, NAAT NEGATIVE 05/09/20 05/10/20 05/10/20 21:10 05:39 05:39 WBC 6.72 RBC 3.54 L Hgb 11.6 L Hct 34.9 L MCV 98.6 MCH 32.8 MCHC 33.2 RDW Std Deviation 52.6 H RDW Coeff of Keila 14.8 H Plt Count 172 MPV 10.0 PT 16.2 H INR 1.7 H Sodium Potassium Chloride Carbon Dioxide Anion Gap BUN Creatinine Est Cr Clr Drug Dosing Est GFR ( Amer) Est GFR (Non-Af Amer) BUN/Creatinine Ratio Glucose Calcium Troponin I 0.021 Urine Color Urine Appearance Urine pH Ur Specific [place] Urine Protein Urine Glucose (UA) Urine Ketones Urine Blood Urine Nitrite Urine Bilirubin Urine Urobilinogen Ur Leukocyte Esterase Urine WBC (Auto) Urine RBC (Auto) U Hyaline Cast (Auto) U Epithel Cells (Auto) Urine Bacteria (Auto) SARS-CoV-2, RNA, NAAT 05/10/20 05:39 WBC RBC Hgb Hct MCV MCH MCHC RDW Std Deviation RDW Coeff of Keila Plt Count MPV PT INR Sodium 142 Potassium 3.7 Chloride 109 H Carbon Dioxide 25 Anion Gap 8.0 BUN 20 H Creatinine 0.79 Est Cr Clr Drug Dosing 42.6 Est GFR ( Amer) 81.9 Est GFR (Non-Af Amer) 70.7 BUN/Creatinine Ratio 25.2 H Glucose 83 Calcium 8.6 Troponin I Urine Color Urine Appearance Urine pH Ur Specific [place] Urine Protein Urine Glucose (UA) Urine Ketones Urine Blood Urine Nitrite Urine Bilirubin Urine Urobilinogen Ur Leukocyte Esterase Urine WBC (Auto) Urine RBC (Auto) U Hyaline Cast (Auto) U Epithel Cells (Auto) Urine Bacteria (Auto) SARS-CoV-2, RNA, NAAT Diagnostic Findings Echocardiogram demonstrates moderate left hypertrophy with normal left her systolic function. Aortic valve is heavily calcified and restricted mobility suggesting severe aortic stenosis with Doppler evidence less pronounced. No acute findings or change from prior ECG Additional Comments: 10-MAY-2020 06:49:01 [facility]-MEDICU ROUTINE RETRIEVAL Sinus rhythm with 1st degree A-V block Minimal voltage criteria for LVH, may be normal variant Borderline ECG When compared with ECG of 09-MAY-2020 09:24, No significant change was found (1) HTN (hypertension) Hypertension type: essential hypertension Qualified Code(s): I10 - Essential (primary) hypertension
[2020-05-10] MEDS ORDERED: WARFARIN SOD 1.25 MG TAB PO SCH (16:00)
--- NOTE | 2020-05-10 18:05 | Electrocardiogram Report ---
Test Reason : Blood Pressure : / mmHG Vent. Rate : 067 BPM Atrial Rate : 067 BPM P-R Int : 210 ms QRS Dur : 070 ms QT Int : 416 ms P-R-T Axes : 049 -27 056 degrees QTc Int : 439 ms Sinus rhythm with 1st degree A-V block Minimal voltage criteria for LVH, may be normal variant Borderline ECG When compared with ECG of 09-MAY-2020 09:24, No significant change was found Confirmed by Valentin Hinton ([id number]) on 05/10/2020 6:05:21 PM Referred By: REFERRED SELF Confirmed By:Valentin Hinton
[2020-05-11] MEDS ORDERED: FOLIC ACID 1 MG TAB PO SCH (09:00)
--- NOTE | 2020-05-14 23:44 | Discharge Summary ---
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 As part of evaluation for aortic stenosis, patient underwent cardiac cath 03/18/2020 and received TYLER x 2 to LAD. Aortic stenosis was interpreted as moderate during cath and there are currently no plans for repair or replacement. Patient was at cardiac rehab today when she reports that she felt fatigued during her first exercises. She then transition to the bike when she developed upper left arm pain that radiated across her chest. She describes the pain as an ache. She also reports associated shortness of breath and lightheadedness. No diaphoresis or nausea. 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 This resolves with rest. Patient reports he otherwise has been feeling well recently. Denies orthopnea and worsening lower extremity edema. No syncopal events. Denies fevers and chills. No abdominal pain, vomiting, diarrhea. No urinary symptoms. In the ED, initial troponin is negative and EKG does not show any acute ST changes. BP is elevated 186/86. Patient reports taking all medications as prescribed this morning. Admission Exam Per Admitting Provider Constitutional: WD/WN, vitals as above Eyes: PERRL, conjunctivae normal, anicteric sclerae ENMT: external ear and nose normal, oropharynx normal Respiratory: normal respiratory effort, lungs clear to auscultation Cardiovascular: Rate/Rhythm: regular rate and regular rhythm Heart Sounds: + murmur (Grade 4/6, systolic) Vessels: normal peripheral pulses Extremities: + edema (Trace edema BLE) Gastrointestinal (Abdomen): normal bowel sounds, soft, nontender, no hepatosplenomegaly Musculoskeletal: no cyanosis or clubbing, extremities motor strength 5/5 Skin: no rashes, warm and dry Neurologic: PERRL, EOMI, accommodation nl, no face palsy, no dysarthria Psychiatric: A+Ox3, euthymic affect Principal Diagnosis Chest pain severe aortic stenosis uncontrolled hypertension Discharge Exam CONSTITUTIONAL: WNWD, generally well-appearing EYES: EOMI bilaterally, PERRL, normal conjunctivae, no scleral icterus ENT: external ear and nose normal, MMM RESPIRATORY: clear to auscultation bilaterally, no crackles, rales or wheezes, normal respiratory effort CARDIOVASCULAR: regular rate and rhythm, 3/6 MINI, no JVD, no peripheral edema GASTROINTESTINAL: soft, nontender, no guarding MUSCULOSKELETAL: strength 5/5 throughout, ambulatory SKIN: warm and dry NEUROLOGIC: CN 2-12 grossly intact, normal cognition, normal speech PSYCHIATRIC: alert cooperative and oriented to person, place and time. Discharge Data Allergies Allergy/AdvReac Type Severity Reaction Status Date / Time Penicillins Allergy Mild RASH Verified 05/09/20 09:42 baclofen Allergy Unknown DIZZY Verified 05/09/20 09:42 Sulfa (Sulfonamide Allergy Unknown HEADACHE Verified 05/09/20 09:42 Antibiotics) Consultations 05/09/20 11:51 ED Decision to Admit Stat 05/09/20 15:11 Consult Cardiology Routine Consult Case Management - Discharge Planning Routine Hospital Course (1) Chest pain: (2) CAD (coronary artery disease): (3) HTN (hypertension): (4) Aortic stenosis: Noted to be elevated to 186/86 cardiology was consulted and felt current EKGs and cardiac enzymes trend did not suggest acute coronary syndrome or ischemia. Hypertension was still present and she was placed on additional amlodipine 5 mg daily. Low-dose nitrates were also considered as in addition to her regimen. The long-term plan would be to treat her hypertension and if her symptoms persist or of cardiac enzymes evolved she may warrant more aggressive treatment regarding her aortic valve. She underwent an echocardiogram revealing a normal left ventricular wall motion and size with an ejection fraction 55 to 60%. Aortic valve leaflets were calcified with severe restriction in leaflet mobility with moderate to severe valvular aortic stenosis noted. Calculated valve area reflected severe aortic stenosis however peak aortic valve velocity only was 3.1 m/s. Overall this suggests severe aortic stenosis with trace mitral regurgitation. Reevaluation the following day revealed blood pressures were trending in a positive direction at time of discharge she was hemodynamically stable and afebrile and tolerating p.o. She was mentating and ambulating at baseline oxygenating well on room air. Close primary care follow- up is recommended with additional recommended follow-up with cardiology in 1 to 2 weeks. Patient is to resume cardiac rehab cautiously. Total Time Total Time Spent Total Time Spent (In Minutes): 60 Total Time Includes: Examination of the Patient, Discharge Planning, Medication Reconciliation and Communication With Other Providers Discharge Plan Discharge Items Patient Disposition: Home - Self-Care Reason For Visit: CHEST PAIN Discharge Diagnosis: Chest pain severe aortic stenosis uncontrolled hypertension Condition on Discharge: Good Activity: Resume your previous activity Non-emergency contact: Primary Care Provider Call non-emergency contact if: you have any medication questions, your symptoms worsen, your pain is not controlled, your pain is worsening, your pain is unusual for you, your pain is concerning for you and you have a fever Follow-up/Referrals: Shea Colbert DO [Primary Care Provider] - (Date & Time 05/15/2020 11:10 AM Provider Shea Colbert DO Department [facility] ) Diet: Low Sodium (2gm) Addtl Attending Provider Instructions: Please take all medications as instructed on discharge list below. Please followup with your primary care provider as scheduled above. It is important to have a repeat blood pressure check on your new medication and ensure your symptoms are not returning. Please complete your antibiotics for the UTI that was found. With recurrent UTIs in the past, you may want to seek evaluation from a colorectal surgeon regarding your large hemorrhoid if you feel this is contributing here. Additionally, a repeat urinalysis to ensure complete resolution of your urinary tract infection has cleared. It was a pleasure taking care of you! Please call if you have any questions or problems. You can reach a [facility] hospitalist on duty at [facility] 24 hours a day by calling [phone]. Take care of yourself. Zeynep Hale DO [facility] P[facility] Studies at Discharge: No Stand-Alone Forms: [facility] Medications and DC Order Prescriptions: New amlodipine [Norvasc] 5 mg Tablet 5 mg PO QAM Qty: 30 RF: 1 cefdinir 300 mg capsule 300 mg PO Q12H Qty: 14 RF: 0 Continued multivitamin Tablet 1 tab PO QAM RF: 0 atorvastatin 40 mg tablet 40 mg PO QAM RF: 0 metoprolol succinate 50 mg tablet extended release 24 hr 50 mg PO BID RF: 0 prednisone 5 mg Tablet 5 mg PO QAM RF: 0 coenzyme Q10 10 mg Capsule 10 mg PO QAM RF: 0 warfarin 2.5 mg tablet 2.5 mg PO SUTUTHSA RF: 0 hydrochlorothiazide 25 mg Tablet 25 mg PO DAILY PRN (Reason: Fluid Retention) RF: 0 leflunomide [Arava] 10 mg tablet 10 mg PO QAM RF: 0 folic acid 1 mg Tablet 1 mg PO QAM RF: 0 warfarin 2.5 mg tablet 3.75 mg PO MOWEFR RF: 0 methotrexate sodium 2.5 mg tablet 10 mg PO FR RF: 0 clopidogrel 75 mg tablet 75 mg PO QAM RF: 0 nitroglycerin 0.4 mg tablet, sublingual 0.4 mg sublingual Q5M PRN (Reason: Chest Pain) RF: 0 ascorbic acid (vitamin C) [Vitamin C] 1,000 mg Tablet 1 g PO BID RF: 0 ropinirole 3 mg tablet 3 mg PO HS RF: 0 cholecalciferol (vitamin D3) 25 mcg (1,000 unit) Capsule 25 mcg PO DAILY RF: 0 Discharge Orders: Discharge Order (Routine); Ordered 05/10/20 Ordered By: Zeynep Hale Admission Data Admit Date/Time: 05/09/20 11:51 Attending Provider: Zeynep Hale Admit Provider: Miguel Gonzáles Primary Care Provider: Shea Colbert Other Providers: Miguel Gonzáles ; Terence Blanchard Other Interventions: Discharge Summary Assessment (RN) Last Done: 05/10/20 13:28
== END 2020-05-10 17:20 | disposition home or self-care (01) ==
LOC: 2S 09:11 → ED 09:11 → SUATTDRO 11:51 → 2S 15:00

== ENCOUNTER 2021-04-21 12:01 | Observation (INO) ==
--- NOTE | 2021-04-21 12:48 | XRay Report ---
XR chest 1V portable HISTORY: 80 years-old Female Chest Pain atypical chest pain COMPARISON: May 09, 2020 TECHNIQUE: Portable AP view of the chest FINDINGS: Cardiac silhouette is enlarged. Aortic valvular endograft. Calcified plaque of the thoracic aorta. No pneumothorax, large pleural effusion or overt pulmonary edema. Chronic blunting of the costophrenic angles. Minimal subsegmental left basilar atelectasis/scarring. Degenerative changes of the shoulders and spine. IMPRESSION: Cardiomegaly without acute process. ACT 112: Negative or not required by law. The above report was generated using voice recognition software. It may contain grammatical, syntax o r spelling errors. Electronically signed by: Fransico Varner M.D. 04/21/2021 12:47 PM
--- NOTE | 2021-04-21 12:55 | Emergency Department Note ---
Impression & Plan Chest pain, S/P TAVR (transcatheter aortic valve replacement), Hypokalemia, Elevated troponin, Thrombocytopenia ED Provider Note NAME: MARCELLA YOUNGBLOOD AGE: 80 SEX: F ARRIVES VIA: Ambulance INFORMANT: Patient ED PROVIDER(S): Home Malloy MD CHIEF COMPLAINT: Chest pain PLAN: Disposition: Admit MEDICAL DECISION MAKING: The patient is a pleasant 80-year-old woman with a past medical history of CAD, history of PCI x2 in February 2020 hypertension, hyperlipidemia, GERD, history of PE/DVT in 2017 on warfarin, INA on CPAP, history of aortic stenosis status post TAVR on 04/16 at [facility] who presents to the emergency department for evaluation of lower chest pain that began approximately half hour prior to arrival which reports she was sitting in her chair watching TV and felt sudden onset of pressure. She reports she took an aspirin and the pain went away. She denies any shortness of breath, nausea, vomiting, diarrhea or urinary symptoms. Has any history of similar symptoms in the past. She denies any recent history of exertional chest pain. She denies any fevers, chills, cough, congestion, GI or symptoms. On arrival patient is well-appearing in no distress, afebrile with stable vital signs. Exam is unremarkable EKG at 1208 without overt acute ischemia though there is some variability on what was thought to be the patient's repeat EKG in the emergency department with differing QRS morphology in leads II, III, V2 and V3. Of note, it was later identified that this variation is likely related to incorrect ID entry and it is suspected that the patient's recorded EKG at 1304 was not hers. WBC 3.3K, H/H 8.9/27.2, and platelets 89K similar to values on 04/16 in the [facility] record. INR is 1.9. Chemistry without metabolic acidosis. Potassium 3.2 and electrolytes otherwise without significant abnormality. AST is 53 and total bilirubin 1.2 nonspecific. Lipase is not elevated troponin 0.1, mildly elevated but in the setting of the patient's recent TAVR. COVID-19, RNA, NAAT test was negative. I did perform a limited bedside cardiac ultrasound and there was no overt large pericardial effusion. Given the patient's recent TAVR in the setting of multiple comorbidities she is in agreement with plan for admission for further evaluation Case was discussed with Nan Morrison PAC, with Dr. Nirav Montana hospitalist who will evaluate the patient for admission. Triage Nursing notes reviewed and agree them. Prior medical records reviewed Vital Signs: reviewed and remarkable for no significant abnormalities Differential diagnosis: Cardiac ischemia, aortic dissection, pulmonary embolism, pneumothorax, pneumonia, pericarditis, myocarditis, esophageal rupture, GERD, cholecystitis, pancreatitis, musculoskeletal, as well as other pathologies. ER treatment provided: See below. Diagnostics interpreted by me: ECG: Sinus rhythm with first-degree AV block, 79 bpm, incomplete right bundle branch block, LVH, no overt ST elevation or depression, QTC 442, QRS 92. Artifact present. Cardiac Monitoring: An order for continuous cardiac monitoring was placed and demonstrated Sinus rhythm with first-degree AV block, 79 bpm, no ectopy. Laboratory studies: See below Imaging studies: See below Consultation(s): Case was discussed with Nan Morrison PAC, with Dr. Nirav Montana hospitaljudy who will evaluate the patient for admission. HPI: The patient is a pleasant 80-year-old woman with a past medical history of CAD, history of PCI x2 in February 2020 hypertension, hyperlipidemia, GERD, history of PE/DVT in 2017 on warfarin, INA on CPAP, history of aortic stenosis status post TAVR on 04/16 at [facility] who presents to the emergency department for evaluation of lower chest pain that began approximately half hour prior to arrival which reports she was sitting in her chair watching TV and felt sudden onset of pressure. She reports she took an aspirin and the pain went away. She denies any shortness of breath, nausea, vomiting, diarrhea or urinary symptoms. Has any history of similar symptoms in the past. She denies any recent history of exertional chest pain. She denies any fevers, chills, cough, congestion, GI or symptoms. ROS: See above HPI for pertinent positives & negatives. A total of 10 systems reviewed and were otherwise negative. PAST MEDICAL HISTORY:See Below PAST SURGICAL HISTORY:See Below FAMILY HISTORY:See Below SOCIAL HISTORY:See Below HOME MEDICATIONS:See Below ALLERGIES:See Below VITALS:See Below PHYSICAL EXAMINATION: GENERAL: Awake, alert, well-appearing, in no distress HENT: Normocephalic, atraumatic. Oropharynx unremarkable. EYES: Normal conjunctiva. Sclera non-icteric. NECK: Supple. No nuchal rigidity. FROM. No JVD. RESPIRATORY: Clear to auscultation. CARDIAC: Regular rate, normal rhythm. Extremities warm and well perfused. Pulses equal. ABDOMEN: Soft, non-distended. No tenderness to palpation. No rebound or guarding. No masses. RECTAL: Deferred. MUSCULOSKELETAL: Chest examination reveals no tenderness. The back is symmetrical on inspection without obvious abnormality. There is no CVA tenderness to palpation. No joint edema. LOWER EXTREMITIES: Calves are equal size bilaterally and non-tender. 1+ BLE edema. No discoloration. NEURO: Normal sensorium. No sensory or motor deficits noted. SKIN: No rash or jaundice noted. ED COURSE: Critical Care: I have personally spent greater than 35 minutes of critical care time in the direct management of this patient. This includes bedside care, interpretation of diagnostic studies, and testing, discussion with consultants, patient, and family members, and other required patient management activities. This 35 mi nutes is in excess of all separately billable procedures. Home Malloy MD Past Med/Surg History Medical History CAD (coronary artery disease) Chronic anticoagulation CKD (chronic kidney disease) stage 3, GFR 30-59 ml/min Diverticular disease hx diverticulitis GERD (gastroesophageal reflux disease) History of DVT (deep vein thrombosis) a few years ago. remote h/o PE as well. on mcfp anticoagulation HLD (hyperlipidemia) HTN (hypertension) Lumbar radiculopathy Obstructive sleep apnea WEARS O2 AT 2L AT HS On home oxygen therapy 2L AT HS Paroxysmal SVT (supraventricular tachycardia) Rheumatoid arthritis RLS (restless legs syndrome) Severe aortic stenosis SVT (supraventricular tachycardia) Surgical History H/O colonoscopy H/O eye surgery LEFT History of carpal tunnel surgery RT/LEFT History of esophagogastroduodenoscopy (EGD) History of heart artery stent 03/18/2020-TYLER x 2 to LAD History of lumbar fusion History of tooth extraction History of total knee replacement RT/LEFT S/P CHANNING-BSO S/P TAVR (transcatheter aortic valve replacement) Family History Other Heart disease No family history of adverse response to anesthesia Rheumatoid arthritis Social History Smoking Status: Former smoker Tobacco Type: Cigarettes Second Hand Exposure: Yes (IN THE PAST); Hx Alcohol Use: No Hx Substance Use: No Preferred Language: Singaporean Communication Ability: Effective Professor Of Philosophy Required: No Beliefs That Will Affect Care: None marital status: Current Living Situation: Spouse Current Living Situation Comment: Lives with How many Children do You have: 1 Feels Safe at Home: Yes Assistive Devices: Cane, Denture - Upper, Denture - Lower, Glasses, Hearing Aid - Bilateral and Oxygen - at Night Allergies Allergies Allergy/AdvReac Type Severity Reaction Status Date / Time baclofen Allergy Mild DIZZY Verified 04/21/21 15:31 Penicillins Allergy Mild RASH Verified 04/21/21 15:31 Sulfa (Sulfonamide Allergy Mild HEADACHE Verified 04/21/21 15:31 Antibiotics) Home Meds Home Medications Medication Instructions Recorded Confirmed atorvastatin 40 mg tablet 40 mg PO QAM 07/01/18 04/21/21 coenzyme Q10 10 mg capsule 10 mg PO QPM 07/01/18 04/21/21 hydrochlorothiazide 25 mg tablet 25 mg PO DAILY PRN 07/01/18 04/21/21 metoprolol succinate 50 mg 50 mg PO BID 07/01/18 04/21/21 tablet,extended release 24 hr multivitamin 1 tab PO QAM 07/01/18 04/21/21 prednisone 5 mg tablet 5 mg PO QAM 07/01/18 04/21/21 folic acid 1 mg tablet 2 mg PO QAM 10/17/19 04/21/21 leflunomide 10 mg tablet (Arava) 20 mg PO QAM 10/17/19 04/21/21 methotrexate sodium 2.5 mg tablet 10 mg PO FR 11/14/19 04/21/21 clopidogrel 75 mg tablet 75 mg PO QAM 05/09/20 04/21/21 ropinirole 3 mg tablet 3 mg PO HS PRN 05/09/20 04/21/21 ezetimibe 10 mg tablet 10 mg PO DAILY 04/21/21 04/21/21 gabapentin 100 mg capsule 100 mg PO BID 04/21/21 04/21/21 pantoprazole 40 mg tablet,delayed 40 mg PO DAILY 04/21/21 04/21/21 release sennosides 8.6 mg tablet (senna) 8.6 mg PO DAILY 04/21/21 04/21/21 warfarin 2.5 mg tablet See Rx Instructions .ROUTE .COMPLEX 04/21/21 04/21/21 Previous Rx's Medication Instructions Recorded amlodipine 5 mg tablet (Norvasc) 5 mg PO QAM #30 tab 05/10/20 Results & Data (ED) Vital Signs Vital Signs - 24 hr 04/21/21 12:05 04/21/21 12:35 04/21/21 14:08 Temperature 37.0 C Temperature Source Oral Pulse Rate 82 Pulse Rate [Apical] 80 Pulse Rhythm Regular Pulse Rhythm [Apical] Regular Pulse Strength Normal Respiratory Rate 16 18 Respiratory Effort / Characteristics Non-Labored Spontaneous Non-Labored Spontaneous Respiratory Depth Normal Normal Respiratory Pattern Regular Regular Blood Pressure 152/90 H Blood Pressure [Right Arm] 134/60 Blood Pressure Mean 110 Blood Pressure Mean [Right Arm] 84 Blood Pressure Position Lying Blood Pressure Position [Right Arm] Lying Pulse Oximetry 99 100 95 Oxygen Delivery Method Room Air Room Air Room Air Sepsis Recent Fever Within 48 Hours No Sepsis New/Unexplained Change in Mental Status N/A Sepsis Action Taken by Nursing No Action Required Laboratory Data Attestation: I reviewed the patient's lab results. Result diagrams: 04/21/21 12:49 04/21/21 12:49 Lab Results 04/21/21 04/21/21 04/21/21 Range/Units 12:49 12:49 12:49 WBC 3.36 L (4.8-10.8) K/uL RBC 2.57 L (4.2-5.4) M/uL Hgb 8.9 L (12.0-16.0) g/dL Hct 27.2 L (37-47) % MCV 105.8 H (80-100) fL MCH 34.6 H (25-34) pg MCHC 32.7 (32-36) g/dL RDW Std Deviation 69.2 H (36.4-46.3) fL RDW Coeff of Keila 18.1 H (11.5-14.5) % Plt Count 89 L (130-400) K/uL MPV 11.0 H (7.4-10.4) fL Immature Gran % (Auto) 0.3 % Neut % (Auto) 70.2 % Lymph % (Auto) 17.3 % [facility] % (Auto) 4.8 % Eos % (Auto) 6.5 % Baso % (Auto) 0.9 % Neut # (Auto) 2.36 (1.4-6.5) K/uL Lymph # (Auto) 0.58 L (1.2-3.4) K/uL [facility] # (Auto) 0.16 (0.11-0.59) K/uL Eos # (Auto) 0.22 (0-0.5) K/uL Baso # (Auto) 0.03 (0-0.2) K/uL Immature Gran # (Auto) 0.01 (0.00-0.02) K/uL Platelet Estimate Decreased L (Normal) Ovalocytes 1+ PT 18.1 H (9.0-12.0) Seconds INR 1.9 H (0.9-1.1) Sodium 137 (136-145) mmol/L Potassium 3.2 L (3.5-5.1) mmol/L Chloride 104 (98-107) mmol/L Carbon Dioxide 24 (21-32) mmol/L Anion Gap 9 (3-11) BUN 23 (6-23) mg/dl Creatinine 0.84 (0.6-1.2) mg/dl Est Cr Clr Drug Dosing 42.9 ml/min Est GFR ( Amer) 75.5 ml/min Est GFR (Non-Af Amer) 65.2 ml/min BUN/Creatinine Ratio 27.4 H (10-20) Glucose 93 (70-99(Fasting)) mg/dl Calcium 8.6 (8.5-10.1) mg/dl Phosphorus 2.4 L (2.5-4.9) mg/dl Magnesium 1.8 (1.7-2.4) mg/dl Total Bilirubin 1.2 H (0.2-1.0) mg/dl AST 53 H (13-39) U/L ALT 34 (7-52) U/L Alkaline Phosphatase 101 (34-104) U/L Troponin I 0.10 H* (0-0.04) ng/ml B-Natriuretic Peptide (0-100) pg/ml Total Protein 6.3 (6.0-8.3) gm/dl Albumin 3.6 (3.4-5.0) gm/dl Globulin 2.7 (2.5-4.0) gm/dl Albumin/Globulin Ratio 1.3 (0.9-2) Lipase 17 (11-82) U/L SARS-CoV-2, RNA, NAAT (NEGATIVE) 04/21/21 04/21/21 Range/Units 13:15 14:10 WBC (4.8-10.8) K/uL RBC (4.2-5.4) M/uL Hgb (12.0-16.0) g/dL Hct (37-47) % MCV (80-100) fL MCH (25-34) pg MCHC (32-36) g/dL RDW Std Deviation (36.4-46.3) fL RDW Coeff of Keila (11.5-14.5) % Plt Count (130-400) K/uL MPV (7.4-10.4) fL Immature Gran % (Auto) % Neut % (Auto) % Lymph % (Auto) % [facility] % (Auto) % Eos % (Auto) % Baso % (Auto) % Neut # (Auto) (1.4-6.5) K/uL Lymph # (Auto) (1.2-3.4) K/uL [facility] # (Auto) (0.11-0.59) K/uL Eos # (Auto) (0-0.5) K/uL Baso # (Auto) (0-0.2) K/uL Immature Gran # (Auto) (0.00-0.02) K/uL Platelet Estimate (Normal) Ovalocytes PT (9.0-12.0) Seconds INR (0.9-1.1) Sodium (136-145) mmol/L Potassium (3.5-5.1) mmol/L Chloride (98-107) mmol/L Carbon Dioxide (21-32) mmol/L Anion Gap (3-11) BUN (6-23) mg/dl Creatinine (0.6-1.2) mg/dl Est Cr Clr Drug Dosing ml/min Est GFR ( Amer) ml/min Est GFR (Non-Af Amer) ml/min BUN/Creatinine Ratio (10-20) Glucose (70-99(Fasting)) mg/dl Calcium (8.5-10.1) mg/dl Phosphorus (2.5-4.9) mg/dl Magnesium (1.7-2.4) mg/dl Total Bilirubin (0.2-1.0) mg/dl AST (13-39) U/L ALT (7-52) U/L Alkaline Phosphatase (34-104) U/L Troponin I (0-0.04) ng/ml B-Natriuretic Peptide 142 H (0-100) pg/ml Total Protein (6.0-8.3) gm/dl Albumin (3.4-5.0) gm/dl Globulin (2.5-4.0) gm/dl Albumin/Globulin Ratio (0.9-2) Lipase (11-82) U/L SARS-CoV-2, RNA, NAAT NEGATIVE (NEGATIVE) Administered Medications Acetaminophen (Acetaminophen 325 Mg Tab) 650 mg PO Q4H PRN PRN Reason: Pain or Fever Stop: 05/21/21 16:51 Last Admin: 04/21/21 18:40 Dose: 650 mg Documented by: [id number] Amlodipine Besylate (Amlodipine Besylate 5 Mg Tab) 5 mg PO QAM [facility] Stop: 05/21/21 16:51 Last Admin: 04/21/21 18:40 Dose: 5 mg Documented by: [id number] Potassium Phosphate 15 mmol/ (Sodium Chloride) 255 mls @ 88 mls/hr IV ONE ONE Stop: 04/21/21 19:23 Last Admin: 04/21/21 18:41 Dose: 88 mls/hr Documented by: [id number] Warfarin Sodium (Warfarin Sod 1.25 Mg Tab) 1.25 mg PO Mo@1600 [facility] Stop: 05/21/21 17:44 Last Admin: 04/21/21 18:39 Dose: 1.25 mg Documented by: [id number] Discontinued Medications Magnesium Sulfate/Dextrose (Magnesium Sulfate / D5w) 1 gm in 100 mls @ 50 mls/hr IV ONE ONE Stop: 04/21/21 18:07 Last Admin: 04/21/21 16:48 Dose: 50 mls/hr Documented by: [id number] Potassium Chloride (Potassium Chloride Crtab 20 Meq Tabcr) 40 meq PO NOW STA Stop: 04/21/21 16:09 Last Admin: 04/21/21 16:48 Dose: 40 meq Documented by: [id number] Imaging Data Radiologist's Impression: Chest X-Ray 04/21/21 12:30 XR chest 1V portable HISTORY: 80 years-old Female Chest Pain atypical chest pain COMPARISON: May 09, 2020 TECHNIQUE: Portable AP view of the chest FINDINGS: Cardiac silhouette is enlarged. Aortic valvular endograft. Calcified plaque of the thoracic aorta. No pneumothorax, large pleural effusion or overt pulmonary edema. Chronic blunting of the costophrenic angles. Minimal subsegmental left basilar atelectasis/scarring. Degenerative changes of the shoulders and spine. IMPRESSION: Cardiomegaly without acute process. ACT 112: Negative or not required by law. The above report was generated using voice recognition software. It may contain grammatical, syntax or spelling errors. Electronically signed by: Fransico Varner M.D. 04/21/2021 12:47 PM Discharge Plan Visit Data Chief Complaint: Chest Pain Stated Complaint: chest pain ED Provider: Home Malloy Discharge Problem: Chest pain, S/P TAVR (transcatheter aortic valve replacement), Hypokalemia, Elevated troponin, Thrombocytopenia Discharge Problem: Chest pain Qualifiers: Chest pain type: unspecified Qualified Code(s): R07.9 - Chest pain, unspecified
[2021-04-21 13:10] LABS: INR 1.9 (0.9-1.1); Prothrombin Time 18.1 Seconds (9.0-12.0)
[2021-04-21 13:29] LABS: Basophils # (auto) 0.03 K/uL (0-0.2); Basophils % (auto) 0.9 %; Eosinophils # (auto) 0.22 K/uL (0-0.5); Eosinophils % (auto) 6.5 %; Hematocrit (blood only) 27.2 % (37-47); Hemoglobin 8.9 g/dL (12.0-16.0); Immature Granulocytes # (auto) 0.01 K/uL (0.00-0.02); Immature Granulocytes % (auto) 0.3 %; Lymphocytes # (auto) 0.58 K/uL (1.2-3.4); Lymphocytes % (auto) 17.3 %; Mean Corpuscular Hemoglobin 34.6 pg (25-34); Mean Corpuscular Hgb Conc 32.7 g/dL (32-36); Mean Corpuscular Volume 105.8 fL (80-100); Monocytes # (auto) 0.16 K/uL (0.11-0.59); Monocytes % (auto) 4.8 %; Neutrophils # (auto) 2.36 K/uL (1.4-6.5); Neutrophils % (auto) 70.2 %; Ovalocytes 1+; Platelet Count 89 K/uL (130-400); Platelet Estimate Decreased (Normal); RDW Coefficient of Variation 18.1 % (11.5-14.5); RDW Standard Deviation 69.2 fL (36.4-46.3); Red Blood Count 2.57 M/uL (4.2-5.4); White Blood Count 3.36 K/uL (4.8-10.8)
[2021-04-21 13:41] LABS: Troponin I 0.1 ng/ml (0-0.04)
[2021-04-21 13:49] LABS: Albumin Globulin Ratio 1.3 (0.9-2); Albumin Level 3.6 gm/dl (3.4-5.0); BUN Creatinine Ratio 27.4 (10-20); Bilirubin,Total 1.2 mg/dl (0.2-1.0); Calcium 8.6 mg/dl (8.5-10.1); Creatinine Clr Calc Pharmacy 42.9 ml/min; Est GFR (African American) 75.5 ml/min; Est GFR (Non-African American) 65.2 ml/min; Globulin 2.7 gm/dl (2.5-4.0); Magnesium 1.8 mg/dl (1.7-2.4); Phosphorus 2.4 mg/dl (2.5-4.9); Potassium 3.2 mmol/L (3.5-5.1); Total Protein 6.3 gm/dl (6.0-8.3)
--- NOTE | 2021-04-21 15:23 | History & Physical Report ---
Date of Service April 21, 2021 Assessment & Plan (1) Chest pain: Plan: - Admit for monitoring on telemetry - Serial troponins - Repeate EKG in AM - Consult cardiology (2) Hypokalemia: Plan: Replete potassium, phosphate and magnesium. Recheck labs in AM (3) S/P TAVR (transcatheter aortic valve replacement): (4) CKD (chronic kidney disease) stage 3, GFR 30-59 ml/min: (5) HTN (hypertension): (6) CAD (coronary artery disease): (7) HLD (hyperlipidemia): (8) GERD (gastroesophageal reflux disease): Plan: Continue other home medications as appropriate Continue anticoagulation as recommended by [facility] at visit last week - repeat INR in AM Pt seen and reviewed with collaborating physician, Dr. Gastelum. Plan of care disc ussed and as outlined above. 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 Pt reports that she underwent a TAVR on 04/15/21 without complication, monitored overnight, and discharged on 04/16/21. She has done fine since then until this morning. She was watching TV and dozing intermittently when she had the abrupt onset of sharp chest pain radiating to her right jaw. She had some mild associated palpitations but denies associated SOB, diaphoresis, N/V, dizziness or syncope. When EMS arrived they gave her aspirin which she reports resolved her chest pain. No recurrence since then. She denies similar chest pain prior. Before the TAVR, she was having LEMONS but no chest pain. She reports minimal exertion post-TAVR so she is unsure if this is improved. She has c hronic sciatic back pain for which she is on gabapentin that is not helping and prn Tylenol #3 which is minimal effective. She is on chronic anticoagulation due to prior DVT/PE but is unsure of her current dose. No increased LE edema. Allergies Allergy/AdvReac Type Severity Reaction Status Date / Time baclofen Allergy Mild DIZZY Verified 04/21/21 15:31 Penicillins Allergy Mild RASH Verified 04/21/21 15:31 Sulfa (Sulfonamide Allergy Mild HEADACHE Verified 04/21/21 15:31 Antibiotics) Home Medications Medication Instructions Recorded Confirmed Type atorvastatin 40 mg tablet 40 mg PO QAM 07/01/18 04/21/21 History coenzyme Q10 10 mg capsule 10 mg PO QPM 07/01/18 04/21/21 History hydrochlorothiazide 25 mg tablet 25 mg PO DAILY PRN 07/01/18 04/21/21 History metoprolol succinate 50 mg 50 mg PO BID 07/01/18 04/21/21 History tablet,extended release 24 hr multivitamin 1 tab PO QAM 07/01/18 04/21/21 History prednisone 5 mg tablet 5 mg PO QAM 07/01/18 04/21/21 History folic acid 1 mg tablet 2 mg PO QAM 10/17/19 04/21/21 History leflunomide 10 mg tablet (Arava) 20 mg PO QAM 10/17/19 04/21/21 History methotrexate sodium 2.5 mg tablet 10 mg PO FR 11/14/19 04/21/21 History clopidogrel 75 mg tablet 75 mg PO QAM 05/09/20 04/21/21 History ropinirole 3 mg tablet 3 mg PO HS PRN 05/09/20 04/21/21 History amlodipine 5 mg tablet (Norvasc) 5 mg PO QAM #30 tab 05/10/20 04/21/21 Rx ezetimibe 10 mg tablet 10 mg PO DAILY 04/21/21 04/21/21 History gabapentin 100 mg capsule 100 mg PO BID 04/21/21 04/21/21 History pantoprazole 40 mg tablet,delayed 40 mg PO DAILY 04/21/21 04/21/21 History release sennosides 8.6 mg tablet (senna) 8.6 mg PO DAILY 04/21/21 04/21/21 History warfarin 2.5 mg tablet See Rx Instructions .ROUTE .COMPLEX 04/21/21 04/21/21 History prednisone 20 mg tablet 20 mg PO BID 5 Days #10 tab 04/22/21 Rx Past Med/Surg History Medical History CAD (coronary artery disease) Chronic anticoagulation CKD (chronic kidney disease) stage 3, GFR 30-59 ml/min Diverticular disease hx diverticulitis GERD (gastroesophageal reflux disease) History of DVT (deep vein thrombosis) a few years ago. remote h/o PE as well. on fpc anticoagulation HLD (hyperlipidemia) HTN (hypertension) Lumbar radiculopathy Obstructive sleep apnea WEARS O2 AT 2L AT HS On home oxygen therapy 2L AT HS Paroxysmal SVT (supraventricular tachycardia) Rheumatoid arthritis RLS (restless legs syndrome) Severe aortic stenosis SVT (supraventricular tachycardia) Surgical History H/O colonoscopy H/O eye surgery LEFT History of carpal tunnel surgery RT/LEFT History of esophagogastroduodenoscopy (EGD) History of heart artery stent 03/18/2020-TYLER x 2 to LAD History of lumbar fusion History of tooth extraction History of total knee replacement RT/LEFT S/P CHANNING-BSO S/P TAVR (transcatheter aortic valve replacement) Family History Other Heart disease No family history of adverse response to anesthesia Rheumatoid arthritis Social History Smoking Status: Former smoker Tobacco Type: Cigarettes Second Hand Exposure: Yes (IN THE PAST); Hx Alcohol Use: No Hx Substance Use: No Preferred Language: Romanian Communication Ability: Effective Manager Domestic Required: No Beliefs That Will Affect Care: None marital status: Current Living Situation: Spouse Current Living Situation Comment: Lives with How many Children do You have: 1 Feels Safe at Home: Yes Assistive Devices: Cane and Walker Review of Systems Review of Systems: All systems reviewed & are unremarkable except as noted in HPI & below Constitutional: + fatigue; no fever, no chills, no sweats and no anorexia Eyes: no diplopia and no worsening vision Ear, Nose, Mouth, Throat: no nasal congestion, no nasal discharge and no sore throat Respiratory: no cough, no chest congestion, no dyspnea and no wheezing Cardiovascular: as per Subjective / HPI and + edema (chronic LE); no lightheadedness and no syncope Gastrointestinal: + blood in stools (occasional due to hemorrhoid); no abdominal pain, no nausea, no vomiting and no diarrhea/loose stools Genitourinary: no dysuria, no urinary frequency and no hematuria Musculoskeletal: + back pain and + radicular pain Integumentary: no rash and no yellowing of the skin Neurologic: + headache(s) (occasional but none at present); no falls and no paresthesia Psychiatric: no depression and no anxiety Physical Exam Constitutional: WD/WN, vitals as above no acute distress Eyes: PERRL, conjunctivae normal, anicteric sclerae Neck: trachea midline Respiratory: no respiratory distress and no labored breathing Auscultation: lungs clear to auscultation bilaterally; no rales, no rhonchi and no wheezes Cardiovascular: Rate/Rhythm: regular rate and regular rhythm Vessels: dorsalis pedis pulses present and radial pulses present Extremities: + edema (non-pitting LE edema) Gastrointestinal (Abdomen): Inspection/Auscultation: normal bowel sounds; abdomen not distended Percussion/Palpation: abdomen soft; abdomen nontender Musculoskeletal: Head/Neck/Chest: normocephalic, head atraumatic and neck supple Skin: few scatter areas of eccymosis on bilateral UE Neurologic: moves all extremities; no focal motor deficits Psychiatric: A+Ox3, euthymic affect Results & Data Results & Data ([facility]) Vital Signs (Past 12 Hours) Vital Signs Temp Pulse Pulse Resp BP BP Pulse Ox 04/21/21 14:08 80 18 134/60 95 04/21/21 12:35 100 04/21/21 12:05 37.0 C 82 16 152/90 H 99 Laboratory Results Laboratory Results - last 24 hr 04/21/21 04/21/21 04/21/21 12:49 12:49 12:49 WBC 3.36 L RBC 2.57 L Hgb 8.9 L Hct 27.2 L MCV 105.8 H MCH 34.6 H MCHC 32.7 RDW Std Deviation 69.2 H RDW Coeff of Keila 18.1 H Plt Count 89 L MPV 11.0 H Immature Gran % (Auto) 0.3 Neut % (Auto) 70.2 Lymph % (Auto) 17.3 Bennett % (Auto) 4.8 Eos % (Auto) 6.5 Baso % (Auto) 0.9 Neut # (Auto) 2.36 Lymph # (Auto) 0.58 L Bennett # (Auto) 0.16 Eos # (Auto) 0.22 Baso # (Auto) 0.03 Immature Gran # (Auto) 0.01 Platelet Estimate Decreased L Ovalocytes 1+ PT 18.1 H INR 1.9 H Sodium 137 Potassium 3.2 L Chloride 104 Carbon Dioxide 24 Anion Gap 9 BUN 23 Creatinine 0.84 Est Cr Clr Drug Dosing 42.9 Est GFR ( Amer) 75.5 Est GFR (Non-Af Amer) 65.2 BUN/Creatinine Ratio 27.4 H Glucose 93 Calcium 8.6 Phosphorus 2.4 L Magnesium 1.8 Total Bilirubin 1.2 H AST 53 H ALT 34 Alkaline Phosphatase 101 Troponin I 0.10 H* B-Natriuretic Peptide Total Protein 6.3 Albumin 3.6 Globulin 2.7 Albumin/Globulin Ratio 1.3 Lipase 17 SARS-CoV-2, RNA, NAAT 04/21/21 04/21/21 13:15 14:10 WBC RBC Hgb Hct MCV MCH MCHC RDW Std Deviation RDW Coeff of Keila Plt Count MPV Immature Gran % (Auto) Neut % (Auto) Lymph % (Auto) Bennett % (Auto) Eos % (Auto) Baso % (Auto) Neut # (Auto) Lymph # (Auto) Bennett # (Auto) Eos # (Auto) Baso # (Auto) Immature Gran # (Auto) Platelet Estimate Ovalocytes PT INR Sodium Potassium Chloride Carbon Dioxide Anion Gap BUN Creatinine Est Cr Clr Drug Dosing Est GFR ( Amer) Est GFR (Non-Af Amer) BUN/Creatinine Ratio Glucose Calcium Phosphorus Magnesium Total Bilirubin AST ALT Alkaline Phosphatase Troponin I B-Natriuretic Peptide 142 H Total Protein Albumin Globulin Albumin/Globulin Ratio Lipase SARS-CoV-2, RNA, NAAT NEGATIVE Diagnostic Findings Chest X-ray 04/21/21 - IMPRESSION: Cardiomegaly without acute process. 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 For chest pain, EKG reviewed -nonspecific ST or T changes, troponins mildly elevated, trend troponins. Consult cardiology. Repeat EKG in the morning. Monitor and replete electrolytes. Resume home meds as and when appropriate. Hemoglobin was 8.2 postop after TAVR last week, which is improved this admission to 8.9. Continue to monitor. Upon Exam GENERAL: Alert and oriented x3. NAD, on RA. HEENT: No pallor, no icterus. Pupils equal, round and reactive to light. Oral mucosa moist. NECK: No JVD, no neck masses. HEART: S1 and S2 heard. Regular rate and rhythm. No murmur, no gallop. RESPIRATORY SYSTEM: Normal AP diameter. No accessory muscle use. No wheezing, no crackles. ABDOMEN: Soft, bowel sounds present, nontender, no distention. CENTRAL NERVOUS SYSTEM: No facial droop. Speech is clear. Obeys simple commands. Moves extremities. EXTREMITIES: 1+ BLE edema, no erythema seen. I have seen and examined the patient and have discussed the case with the provider above. I agree with the assessment and plan as stated. (1) HTN (hypertension) Hypertension type: essential hypertension Qualified Code(s): I10 - Essential (primary) hypertension
--- NOTE | 2021-04-21 16:04 | Electrocardiogram Report ---
Test Reason : Blood Pressure : / mmHG Vent. Rate : 079 BPM Atrial Rate : 079 BPM P-R Int : 214 ms QRS Dur : 092 ms QT Int : 386 ms P-R-T Axes : 032 -43 077 degrees QTc Int : 442 ms Poor data quality, interpretation may be adversely affected Sinus rhythm with 1st degree A-V block Left axis deviation Incomplete right bundle branch block Voltage criteria for left ventricular hypertrophy Abnormal ECG When compared with ECG of 15-OCT-2020 11:51, Incomplete right bundle branch block is now Present Confirmed by Zackary Mandel ([id number]) on 04/21/2021 4:04:45 PM Referred By: Confirmed By:Jd Mandel
--- NOTE | 2021-04-21 16:06 | Electrocardiogram Report ---
Test Reason : Blood Pressure : / mmHG Vent. Rate : 074 BPM Atrial Rate : 074 BPM P-R Int : 140 ms QRS Dur : 116 ms QT Int : 412 ms P-R-T Axes : 061 -23 085 degrees QTc Int : 457 ms Normal sinus rhythm Right atrial enlargement Left ventricular hypertrophy with QRS widening Nonspecific ST and T wave abnormality Abnormal ECG When compared with ECG of 21-APR-2021 12:08, (unconfirmed) DE interval has decreased QRS duration has increased Confirmed by Zackary Mandel ([id number]) on 04/21/2021 4:06:23 PM Referred By: REFERRED SELF Confirmed By:Jd Mandel
[2021-04-21] MEDS ORDERED: POTASSIUM CHLORIDE CRTAB 20 MEQ TABCR PO STA (16:08)
[2021-04-21] MEDS ORDERED: POTASSIUM PHOS 3 MMOL/1 ML INFUSION IV STA (16:08)
[2021-04-21] MEDS ORDERED: MAGNESIUM SULFATE / D5W 1 GM/100 ML BAG IV ONE (16:08)
[2021-04-21] MEDS ORDERED: POTASSIUM PHOSPHATE 15 MMOL in SODIUM CHLORIDE 0.9% 250 ML IV ONE (16:30)
[2021-04-21] MEDS ORDERED: WARFARIN SOD 1.25 MG TAB PO SCH (17:45)
[2021-04-21] MEDS: ACETAMINOPHEN 325 MG TAB PO PRN (18:40)
[2021-04-21] MEDS: amLODIPine BESYLATE 5 MG TAB PO SCH (18:40)
[2021-04-21] MEDS: GABAPENTIN 100 MG CAP PO SCH (21:01)
[2021-04-21] MEDS: METOPROLOL SUCC 50MG EXT REL TAB PO SCH (21:01)
[2021-04-22] MEDS: ACETAMINOPHEN 325 MG TAB PO PRN ×2 (00:01→05:34)
[2021-04-22 06:12] LABS: Hematocrit (blood only) 27.3 % (37-47); Hemoglobin 8.9 g/dL (12.0-16.0); Mean Corpuscular Hemoglobin 34.6 pg (25-34); Mean Corpuscular Hgb Conc 32.6 g/dL (32-36); Mean Corpuscular Volume 106.2 fL (80-100); Nucleated RBC # (auto) 0.02 K/uL (0-0); Nucleated RBC % (auto) 0.8 %; RDW Coefficient of Variation 18.1 % (11.5-14.5); RDW Standard Deviation 69.1 fL (36.4-46.3); Red Blood Count 2.57 M/uL (4.2-5.4); White Blood Count 2.61 K/uL (4.8-10.8)
[2021-04-22 06:18] LABS: Mean Platelet Volume 10.8 fL (7.4-10.4); Platelet Count 96 K/uL (130-400)
[2021-04-22 06:22] LABS: INR 1.8 (0.9-1.1); Prothrombin Time 17.5 Seconds (9.0-12.0)
[2021-04-22 06:35] LABS: Calcium 8.1 mg/dl (8.5-10.1); Creatinine Clr Calc Pharmacy 47.1 ml/min; Est GFR (African American) 88.1 ml/min; Magnesium 2.1 mg/dl (1.7-2.4); Phosphorus 3.1 mg/dl (2.5-4.9); Potassium 4.2 mmol/L (3.5-5.1)
[2021-04-22 06:46] LABS: Basophils # (auto) 0.03 K/uL (0-0.2); Basophils % (auto) 1.1 %; Eosinophils # (auto) 0.19 K/uL (0-0.5); Eosinophils % (auto) 7.3 %; Immature Granulocytes # (auto) 0.01 K/uL (0.00-0.02); Immature Granulocytes % (auto) 0.4 %; Lymphocytes # (auto) 0.52 K/uL (1.2-3.4); Lymphocytes % (auto) 19.9 %; Monocytes # (auto) 0.28 K/uL (0.11-0.59); Monocytes % (auto) 10.7 %; Neutrophils # (auto) 1.58 K/uL (1.4-6.5); Neutrophils % (auto) 60.6 %; Spherocytes Occasional
[2021-04-22] MEDS: GABAPENTIN 100 MG CAP PO SCH (07:53)
[2021-04-22] MEDS: METOPROLOL SUCC 50MG EXT REL TAB PO SCH (07:53)
[2021-04-22] MEDS: amLODIPine BESYLATE 5 MG TAB PO SCH (07:55)
[2021-04-22] MEDS ORDERED: methylPREDNISolone 20 MG in SYRINGE 0 ML IV STA ×2 (08:12→14:39)
--- NOTE | 2021-04-22 08:29 | Cardiology Consultation ---
Date of Consultation April 22, 2021 Assessment & Plan (1) Atypical chest pain: (2) S/P TAVR (transcatheter aortic valve replacement): (3) Thrombocytopenia: (4) CAD (coronary artery disease): (5) Elevated troponin: (6) Sciatic leg pain: Patient admitted with atypical chest pain. EKG without acute changes. Troponin minimally elevated and flat, likely due to recent TAVR 7 days ago. Echo reveals normal LV function, no wall motion abnormalities, appropriate function of TAVR. She has minimal pericardial effusion, likely incidental. She has no pleuritic chest pain and no recurrent symptoms. Continue home meds including Plavix, coumadin (For history of PE/DVT), amlodipine, statin and zetia, and metoprolol. supplement potassium. Steroids provided and has eased her sciatic back/leg pain. This pain was present PRIOR to TAVR. Cath sites healing without erythema or significant pain. Case discussed with Dr. Blanchard. Chest pain was likely non cardiac based on description and results of labs, echo. Continue home meds. No further cardiac testing warranted at this time. Anticipate discharge today, unless she has further back pain. Would have her f/u with PCP. Supervising Physician Co-Signing Physician Notes Patient was seen and personally examined. Echocardiogram reviewed and compared to recent study of 04/16/2021. Patient presented with symptoms of atypical chest discomfort nausea and back pain. Back pain proceeded recent TAVR EKG and echocardiogram without acute change symptoms predominately this morning acute nausea with minimal troponin elevation consistent with recent procedure. Trivial pericardial effusion is present on echocardiogram but with preserved to hyperdynamic LV function without wall motion abnormality and normally functioning aortic valve prosthesis no perivalvular insufficiency Cardiac status appears stable assessment as above History of Present Illness Reason for Consultation: Chest pain; Post TAVR Requesting Physician: Ms. Sly PA-C; Dr. Gonzáles Attending Physician: Dr. Blanchard History of Present Illness Patient is a 80 year old female who is known to [facility], following with Dr. Colbert for history of severe aortic stenosis, [place] [facility] [place] with normal LV function, no perivalvular leak or signifiant aortic stenosis or aortic insufficiency, moderate MR. Other history includes CAD with history of 2 TYLER to the mid LAD in Feb 2020, repeat cath in Nov 2020 with patent stents and known chronic occlusion of the RCA otherwise non obstructive CAD, PE/DVT on chronic anticoagulation therapy, hypertension, dyslipidemia, and RA. Patient reports sciatica back pain radiating down both legs. this started pre TAVR and has becoming worse. Yesterday she was having alot of discomfort down her legs. She was resting and watching television and began to notice sharp pains radiating underneath her right breast, and in the epigastric region. symptoms lasted approx 20-30 minutes and she called the ambulance. Symptoms resolved with ASA en route to ER. Since admission, no recurrent chest pain or epigastric pain. continues to have b/l leg pain. Cath sites are without pain. Bandages remain in place and Nurse will help remove today. At time of admission, EKG was without acute change. BP was borderline elevated but improved with home meds. Troponin just minimally elevated at 0.10 and remained stable x3. Currently resting comfortably in bed. Still has mild back pain radiating down legs but improved with recent steroids this morning. No recurrent chest pain. Echo this morning with preserved LV function, stable aortic velocities compared to post TAVR echo, trivial pericardial effusion noted. She denies SOB, cough, pleuritic chest pain. she had mild nausea this morning after eating breakfast, but improved. Allergies Allergy/AdvReac Type Severity Reaction Status Date / Time baclofen Allergy Mild DIZZY Verified 04/21/21 15:31 Penicillins Allergy Mild RASH Verified 04/21/21 15:31 Sulfa (Sulfonamide Allergy Mild HEADACHE Verified 04/21/21 15:31 Antibiotics) Home Medications Medication Instructions Recorded Confirmed Type atorvastatin 40 mg tablet 40 mg PO QAM 07/01/18 04/21/21 History coenzyme Q10 10 mg capsule 10 mg PO QPM 07/01/18 04/21/21 History hydrochlorothiazide 25 mg tablet 25 mg PO DAILY PRN 07/01/18 04/21/21 History metoprolol succinate 50 mg 50 mg PO BID 07/01/18 04/21/21 History tablet,extended release 24 hr multivitamin 1 tab PO QAM 07/01/18 04/21/21 History prednisone 5 mg tablet 5 mg PO QAM 07/01/18 04/21/21 History folic acid 1 mg tablet 2 mg PO QAM 10/17/19 04/21/21 History leflunomide 10 mg tablet (Arava) 20 mg PO QAM 10/17/19 04/21/21 History methotrexate sodium 2.5 mg tablet 10 mg PO FR 11/14/19 04/21/21 History clopidogrel 75 mg tablet 75 mg PO QAM 05/09/20 04/21/21 History ropinirole 3 mg tablet 3 mg PO HS PRN 05/09/20 04/21/21 History amlodipine 5 mg tablet (Norvasc) 5 mg PO QAM #30 tab 05/10/20 04/21/21 Rx ezetimibe 10 mg tablet 10 mg PO DAILY 04/21/21 04/21/21 History gabapentin 100 mg capsule 100 mg PO BID 04/21/21 04/21/21 History pantoprazole 40 mg tablet,delayed 40 mg PO DAILY 04/21/21 04/21/21 History release sennosides 8.6 mg tablet (senna) 8.6 mg PO DAILY 04/21/21 04/21/21 History warfarin 2.5 mg tablet See Rx Instructions .ROUTE .COMPLEX 04/21/21 04/21/21 History Patient History Medical History CAD (coronary artery disease) Chronic anticoagulation CKD (chronic kidney disease) stage 3, GFR 30-59 ml/min Diverticular disease hx diverticulitis GERD (gastroesophageal reflux disease) History of DVT (deep vein thrombosis) a few years ago. remote h/o PE as well. on care home anticoagulation HLD (hyperlipidemia) HTN (hypertension) Lumbar radiculopathy Obstructive sleep apnea WEARS O2 AT 2L AT HS On home oxygen therapy 2L AT HS Paroxysmal SVT (supraventricular tachycardia) Rheumatoid arthritis RLS (restless legs syndrome) Severe aortic stenosis SVT (supraventricular tachycardia) Surgical History H/O colonoscopy H/O eye surgery LEFT History of carpal tunnel surgery RT/LEFT History of esophagogastroduodenoscopy (EGD) History of heart artery stent 03/18/2020-TYLER x 2 to LAD History of lumbar fusion History of tooth extraction History of total knee replacement RT/LEFT S/P CHANNING-BSO S/P TAVR (transcatheter aortic valve replacement) Family History Other Heart disease No family history of adverse response to anesthesia Rheumatoid arthritis Social History Smoking Status: Former smoker Tobacco Type: Cigarettes Second Hand Exposure: Yes (IN THE PAST); Hx Alcohol Use: No Hx Substance Use: No Preferred Language: Divehi Communication Ability: Effective Call Center Nurse Required: No Beliefs That Will Affect Care: None marital status: Current Living Situation: Spouse Current Living Situation Comment: Lives with How many Children do You have: 1 Feels Safe at Home: Yes Assistive Devices: Walker Review of Systems Review of Systems: All systems reviewed & are unremarkable except as noted in HPI & below Physical Exam Constitutional: WD/WN, vitals as above Eyes: PERRL, conjunctivae normal, anicteric sclerae Neck: trachea midline, no thyromegaly Respiratory: normal respiratory effort, lungs clear to auscultation Cardiovascular: Rate/Rhythm: regular rate and regular rhythm Heart Sounds: + murmur (II/ systolic murmur LSB) Vessels: no JVD Extremities: + vascular access device (b/l groin/cath sites with mild echymosis, bandaged b/l. Good pulses. ); no edema Gastrointestinal (Abdomen): normal bowel sounds, soft, nontender, no hepatosplenomegaly Musculoskeletal: no cyanosis or clubbing, extremities motor strength 5/5 Skin: no rashes, warm and dry Results & Data ([facility]) Vital Signs (Past 12 Hours) Vital Signs Temp Pulse Pulse Resp BP BP Pulse Ox 04/22/21 08:25 36.5 C 72 16 124/62 96 04/22/21 03:00 37.0 C 71 16 145/83 H 97 04/22/21 02:30 68 16 169/80 H 96 04/21/21 22:25 80 15 140/92 96 Laboratory Results 04/22/21 04/22/21 04/22/21 Range/Units 05:33 05:33 05:33 WBC 2.61 L (4.8-10.8) K/uL RBC 2.57 L (4.2-5.4) M/uL Hgb 8.9 L (12.0-16.0) g/dL Hct 27.3 L (37-47) % MCV 106.2 H (80-100) fL MCH 34.6 H (25-34) pg MCHC 32.6 (32-36) g/dL RDW Std Deviation 69.1 H (36.4-46.3) fL RDW Coeff of Keila 18.1 H (11.5-14.5) % Plt Count 96 L (130-400) K/uL MPV 10.8 H (7.4-10.4) fL Immature Gran % (Auto) 0.4 % Neut % (Auto) 60.6 % Lymph % (Auto) 19.9 % [place] % (Auto) 10.7 % Eos % (Auto) 7.3 % Baso % (Auto) 1.1 % Neut # (Auto) 1.58 (1.4-6.5) K/uL Lymph # (Auto) 0.52 L (1.2-3.4) K/uL [place] # (Auto) 0.28 (0.11-0.59) K/uL Eos # (Auto) 0.19 (0-0.5) K/uL Baso # (Auto) 0.03 (0-0.2) K/uL Immature Gran # (Auto) 0.01 (0.00-0.02) K/uL Absolute Nucleated RBC 0.02 H (0-0) K/uL Nucleated RBC % (auto) 0.8 % Platelet Estimate (Normal) Spherocytes Occasional Ovalocytes PT 17.5 H (9.0-12.0) Seconds INR 1.8 H (0.9-1.1) Sodium 137 (136-145) mmol/L Potassium 4.2 D (3.5-5.1) mmol/L Chloride 108 H (98-107) mmol/L Carbon Dioxide 23 (21-32) mmol/L Anion Gap 6 (3-11) BUN 17 (6-23) mg/dl Creatinine 0.74 (0.6-1.2) mg/dl Est Cr Clr Drug Dosing 47.1 ml/min Est GFR ( Amer) 88.1 ml/min Est GFR (Non-Af Amer) 76.0 ml/min BUN/Creatinine Ratio 23.0 H (10-20) Glucose 90 (70-99(Fasting)) mg/dl Calcium 8.1 L (8.5-10.1) mg/dl Phosphorus 3.1 (2.5-4.9) mg/dl Magnesium 2.1 (1.7-2.4) mg/dl Total Bilirubin (0.2-1.0) mg/dl AST (13-39) U/L ALT (7-52) U/L Alkaline Phosphatase (34-104) U/L Troponin I (0-0.04) ng/ml B-Natriuretic Peptide (0-100) pg/ml Total Protein (6.0-8.3) gm/dl Albumin (3.4-5.0) gm/dl Globulin (2.5-4.0) gm/dl Albumin/Globulin Ratio (0.9-2) Lipase (11-82) U/L SARS-CoV-2, RNA, NAAT (NEGATIVE) 04/22/21 04/21/21 04/21/21 Range/Units 01:02 19:22 14:10 WBC (4.8-10.8) K/uL RBC (4.2-5.4) M/uL Hgb (12.0-16.0) g/dL Hct (37-47) % MCV (80-100) fL MCH (25-34) pg MCHC (32-36) g/dL RDW Std Deviation (36.4-46.3) fL RDW Coeff of Keila (11.5-14.5) % Plt Count (130-400) K/uL MPV (7.4-10.4) fL Immature Gran % (Auto) % Neut % (Auto) % Lymph % (Auto) % [place] % (Auto) % Eos % (Auto) % Baso % (Auto) % Neut # (Auto) (1.4-6.5) K/uL Lymph # (Auto) (1.2-3.4) K/uL [place] # (Auto) (0.11-0.59) K/uL Eos # (Auto) (0-0.5) K/uL Baso # (Auto) (0-0.2) K/uL Immature Gran # (Auto) (0.00-0.02) K/uL Absolute Nucleated RBC (0-0) K/uL Nucleated RBC % (auto) % Platelet Estimate (Normal) Spherocytes Ovalocytes PT (9.0-12.0) Seconds INR (0.9-1.1) Sodium (136-145) mmol/L Potassium (3.5-5.1) mmol/L Chloride (98-107) mmol/L Carbon Dioxide (21-32) mmol/L Anion Gap (3-11) BUN (6-23) mg/dl Creatinine (0.6-1.2) mg/dl Est Cr Clr Drug Dosing ml/min Est GFR ( Amer) ml/min Est GFR (Non-Af Amer) ml/min BUN/Creatinine Ratio (10-20) Glucose (70-99(Fasting)) mg/dl Calcium (8.5-10.1) mg/dl Phosphorus (2.5-4.9) mg/dl Magnesium (1.7-2.4) mg/dl Total Bilirubin (0.2-1.0) mg/dl AST (13-39) U/L ALT (7-52) U/L Alkaline Phosphatase (34-104) U/L Troponin I 0.10 H* 0.10 H* (0-0.04) ng/ml B-Natriuretic Peptide 142 H (0-100) pg/ml Total Protein (6.0-8.3) gm/dl Albumin (3.4-5.0) gm/dl Globulin (2.5-4.0) gm/dl Albumin/Globulin Ratio (0.9-2) Lipase (11-82) U/L SARS-CoV-2, RNA, NAAT (NEGATIVE) 04/21/21 04/21/21 04/21/21 Range/Units 13:15 12:49 12:49 WBC (4.8-10.8) K/uL RBC (4.2-5.4) M/uL Hgb (12.0-16.0) g/dL Hct (37-47) % MCV (80-100) fL MCH (25-34) pg MCHC (32-36) g/dL RDW Std Deviation (36.4-46.3) fL RDW Coeff of Keila (11.5-14.5) % Plt Count (130-400) K/uL MPV (7.4-10.4) fL Immature Gran % (Auto) % Neut % (Auto) % Lymph % (Auto) % [place] % (Auto) % Eos % (Auto) % Baso % (Auto) % Neut # (Auto) (1.4-6.5) K/uL Lymph # (Auto) (1.2-3.4) K/uL [place] # (Auto) (0.11-0.59) K/uL Eos # (Auto) (0-0.5) K/uL Baso # (Auto) (0-0.2) K/uL Immature Gran # (Auto) (0.00-0.02) K/uL Absolute Nucleated RBC (0-0) K/uL Nucleated RBC % (auto) % Platelet Estimate (Normal) Spherocytes Ovalocytes PT 18.1 H (9.0-12.0) Seconds INR 1.9 H (0.9-1.1) Sodium 137 (136-145) mmol/L Potassium 3.2 L (3.5-5.1) mmol/L Chloride 104 (98-107) mmol/L Carbon Dioxide 24 (21-32) mmol/L Anion Gap 9 (3-11) BUN 23 (6-23) mg/dl Creatinine 0.84 (0.6-1.2) mg/dl Est Cr Clr Drug Dosing 42.9 ml/min Est GFR ( Amer) 75.5 ml/min Est GFR (Non-Af Amer) 65.2 ml/min BUN/Creatinine Ratio 27.4 H (10-20) Glucose 93 (70-99(Fasting)) mg/dl Calcium 8.6 (8.5-10.1) mg/dl Phosphorus 2.4 L (2.5-4.9) mg/dl Magnesium 1.8 (1.7-2.4) mg/dl Total Bilirubin 1.2 H (0.2-1.0) mg/dl AST 53 H (13-39) U/L ALT 34 (7-52) U/L Alkaline Phosphatase 101 (34-104) U/L Troponin I 0.10 H* (0-0.04) ng/ml B-Natriuretic Peptide (0-100) pg/ml Total Protein 6.3 (6.0-8.3) gm/dl Albumin 3.6 (3.4-5.0) gm/dl Globulin 2.7 (2.5-4.0) gm/dl Albumin/Globulin Ratio 1.3 (0.9-2) Lipase 17 (11-82) U/L SARS-CoV-2, RNA, NAAT NEGATIVE (NEGATIVE) 04/21/21 Range/Units 12:49 WBC 3.36 L (4.8-10.8) K/uL RBC 2.57 L (4.2-5.4) M/uL Hgb 8.9 L (12.0-16.0) g/dL Hct 27.2 L (37-47) % MCV 105.8 H (80-100) fL MCH 34.6 H (25-34) pg MCHC 32.7 (32-36) g/dL RDW Std Deviation 69.2 H (36.4-46.3) fL RDW Coeff of Keila 18.1 H (11.5-14.5) % Plt Count 89 L (130-400) K/uL MPV 11.0 H (7.4-10.4) fL Immature Gran % (Auto) 0.3 % Neut % (Auto) 70.2 % Lymph % (Auto) 17.3 % [place] % (Auto) 4.8 % Eos % (Auto) 6.5 % Baso % (Auto) 0.9 % Neut # (Auto) 2.36 (1.4-6.5) K/uL Lymph # (Auto) 0.58 L (1.2-3.4) K/uL [place] # (Auto) 0.16 (0.11-0.59) K/uL Eos # (Auto) 0.22 (0-0.5) K/uL Baso # (Auto) 0.03 (0-0.2) K/uL Immature Gran # (Auto) 0.01 (0.00-0.02) K/uL Absolute Nucleated RBC (0-0) K/uL Nucleated RBC % (auto) % Platelet Estimate Decreased L (Normal) Spherocytes Ovalocytes 1+ PT (9.0-12.0) Seconds INR (0.9-1.1) Sodium (136-145) mmol/L Potassium (3.5-5.1) mmol/L Chloride (98-107) mmol/L Carbon Dioxide (21-32) mmol/L Anion Gap (3-11) BUN (6-23) mg/dl Creatinine (0.6-1.2) mg/dl Est Cr Clr Drug Dosing ml/min Est GFR ( Amer) ml/min Est GFR (Non-Af Amer) ml/min BUN/Creatinine Ratio (10-20) Glucose (70-99(Fasting)) mg/dl Calcium (8.5-10.1) mg/dl Phosphorus (2.5-4.9) mg/dl Magnesium (1.7-2.4) mg/dl Total Bilirubin (0.2-1.0) mg/dl AST (13-39) U/L ALT (7-52) U/L Alkaline Phosphatase (34-104) U/L Troponin I (0-0.04) ng/ml B-Natriuretic Peptide (0-100) pg/ml Total Protein (6.0-8.3) gm/dl Albumin (3.4-5.0) gm/dl Globulin (2.5-4.0) gm/dl Albumin/Globulin Ratio (0.9-2) Lipase (11-82) U/L SARS-CoV-2, RNA, NAAT (NEGATIVE) Diagnostic Findings Telemetry reviewed - NSR, rare PVC's. No arrhythmias EKG on admission reviewed - Sinus rhythm with 1st degree A-V block LVH criteria Conduction delay, likely incomplete RBBB when [place] [facility] [place] signifinat changes noted Repeat EKG reviewed - NSR with 1st degree AV block LVH, conduction delay with likely incomplete RBBB No change from previous Chest xray on admission reviewed: IMPRESSION: Cardiomegaly without acute process. [place] [facility] [place]: Interpretation Summary The examination is adequate to evaluate the referral indication. The qualitative LV ejection fraction is 60-64% (normal). No LV segmental wall motion abnormalities. The right ventricular systolic function is qualitatively normal. The patient is status post TAVR with Arely type prosthetic valve. Aortic valve prosthesis stenosis is absent. Significant aortic valve prosthesis regurgitation is absent. Moderate mitral regurgitation is present. Medications Administered Current Inpatient Medications Acetaminophen (Acetaminophen 325 Mg Tab) 650 mg PO Q4H PRN PRN Reason: Pain or Fever Stop: 05/21/21 16:51 Last Admin: 04/22/21 05:34 Dose: 650 mg Documented by: Amlodipine Besylate ([facility]ip[facility] Besylate 5 Mg Tab) [facility] [place]: 05/21/21 16:51 Last Admin: 04/22/21 07:55 Dose: 5 mg Documented by: Atorvastatin Calcium (Atorvastatin 40 Mg Tab) 40 [facility] [place] [place]: 05/22/21 08:59 Last Admin: 04/22/21 07:54 Dose: 40 mg Documented by: Clopidogrel Bisulfate (Clopidogrel Bisulfate 75 Mg Tab) 75 mg PO QAM [facility] Stop: 05/22/21 08:59 Last Admin: 04/22/21 07:54 Dose: 75 mg Documented by: Ezetimibe (Ezetimibe 10 Mg Tablet) 10 mg PO DAILY [facility] Stop: 05/22/21 08:59 Last Admin: 04/22/21 07:54 Dose: 10 mg Documented by: Folic Acid (Folic Acid 1 Mg Tab) [facility] [place] [place]: 05/22/21 08:59 Last Admin: 04/22/21 07:54 Dose: 2 mg Documented by: Gabapentin (Gabapentin 100 Mg Cap) 100 mg PO BID [facility] Stop: 05/21/21 20:59 Last Admin: 04/22/21 07:53 Dose: 100 mg Documented by: Leflunomide (Leflunomide 10 Mg Tab) 20 mg PO QAM [facility] Stop: 05/22/21 08:59 Last Admin: 04/22/21 07:53 Dose: 20 mg Documented by: Metoprolol Succinate (Metoprolol Succ 50mg Ext Rel Tab) 50 mg PO BID [facility] Stop: 05/21/21 20:59 Last Admin: 04/22/21 07:53 Dose: 50 mg Documented by: Multivitamins (Multivitamin Tab) 1 tab PO [facility] Stop: 05/22/21 08:59 Last Admin: 04/22/21 07:54 Dose: 1 tab Documented by: Ondansetron HCl (Ondansetron Inj 2 Mg/Ml 2 Ml Vial) 4 mg IV Q6H PRN PRN Reason: Nausea And Vomiting Stop: 05/22/21 08:32 Last Admin: 04/22/21 09:18 Dose: 4 mg Documented by: Pantoprazole Sodium (Pantoprazole 40 Mg Tab) 40 mg PO DAILY [facility] Stop: 05/22/21 08:59 Last Admin: 04/22/21 07:54 Dose: 40 mg Documented by: Prednisone (Prednisone 5 Mg Tab) 5 mg PO [facility] Stop: 05/22/21 08:59 Last Admin: 04/22/21 07:54 Dose: 5 mg Documented by: Sennosides (Senna 8.6 Mg Tab) 8.6 mg PO DAILY [facility] Stop: 05/22/21 08:59 Last Admin: 04/22/21 07:54 Dose: 8.6 mg Documented by: Warfarin Sodium (Warfarin Sod 2.5 Mg Tab) 2.5 mg PO [id number] [facility] Stop: 05/22/21 15:59 Warfarin Sodium (Warfarin Sod 1.25 Mg Tab) 1.25 mg PO [id number] [facility] Stop: 05/21/21 17:44 Last Admin: 04/21/21 18:39 Dose: 1.25 mg Documented by:
[2021-04-22] MEDS ORDERED: ONDANSETRON INJ 2 MG/ML 2 ML VIAL IV PRN (08:33)
[2021-04-22] MEDS ORDERED: ATORVASTATIN 40 MG TAB PO SCH (09:00)
[2021-04-22] MEDS ORDERED: CLOPIDOGREL BISULFATE 75 MG TAB PO SCH (09:00)
[2021-04-22] MEDS ORDERED: predniSONE 5 MG TAB PO SCH (09:00)
[2021-04-22] MEDS ORDERED: MULTIVITAMIN TAB PO SCH (09:00)
[2021-04-22] MEDS ORDERED: PANTOprazole 40 MG TAB PO SCH (09:00)
[2021-04-22] MEDS ORDERED: SENNA 8.6 MG TAB PO SCH (09:00)
[2021-04-22] MEDS ORDERED: FOLIC ACID 1 MG TAB PO SCH (09:00)
[2021-04-22] MEDS ORDERED: EZETIMIBE 10 MG TABLET PO SCH (09:00)
[2021-04-22] MEDS ORDERED: LEFLUNOMIDE 10 MG TAB PO SCH (09:00)
--- NOTE | 2021-04-22 11:27 | Hospitalist Progress Note ---
Date of Service April 22, 2021 Assessment & Plan (1) Chest pain: Plan: - Admit for monitoring on telemetry - Serial troponins remain unremarkable - Repeate EKG in AM-did not show any significant change -Appreciate cardiology input and recommendation -Patient remains free from any symptoms except back pain -Awaiting echo and further recommendation from templer head -ECHO reviewed by the Bank Courier:Echo reveals normal LV function, no wall motion abnormalities, appropriate function of TAVR. She has minimal pericardial effusion, likely incidental. -She was discharged home this afternoon Back pain with radiation to both the legs up to the knee History of rheumatoid arthritis and the pain has been there for about 2 weeks Has been on prednisone 5 mg daily and methotrexate I believe once a week She was given 20 of Solu-Medrol IV and the pain is almost gone She will be given short course of prednisone on discharge (2) Hypokalemia: Plan: Replete potassium, phosphate and magnesium. Electrolytes have been normalized (3) S/P TAVR (transcatheter aortic valve replacement): (4) CKD (chronic kidney disease) stage 3, GFR 30-59 ml/min: Plan: Creatinine is normal (5) HTN (hypertension): Plan: Controlled (6) CAD (coronary artery disease): Plan: No acute chest pain, palpitation or shortness of breath (7) HLD (hyperlipidemia): (8) GERD (gastroesophageal reflux disease): Plan: Continue other home medications as appropriate Continue anticoagulation as recommended by coag clinic at visit last week - repeat INR in AM Pt seen and reviewed with collaborating physician, Dr. Gastelum. Plan of care discussed and as outlined above. DVT Prophylaxis: pt on chronic warfarin as outpatient - will continue Code Status: Full Code Admission and Anticipated Discharge Date Admission Date: April 21, 2021 Subjective 04/22/2021 The patient was seen and examined in telemetry unit She was complaining of back pain with radiation up to both knees She did not have any more chest pain since admission She wants to go home this afternoon Review of Systems Review of Systems: All systems reviewed and are unremarkable except as noted below Cardiovascular: Additional Comments: No chest pain and/or palpitation Musculoskeletal: Low back pain radiation to both the legs up to the knee Physical Exam Physical Exam: Sitting at the edge of the bed without any acute distress Constitutional: average body habitus; not ill appearing Eyes: PERRL, conjunctivae normal, anicteric sclerae ENMT: external ear and nose normal, oropharynx normal Neck: trachea midline, no thyromegaly Respiratory: no respiratory distress Auscultation: + crackles (Minimal crackles at the bases) Cardiovascular: Rate/Rhythm: regular rate and regular rhythm; not tachycardic Heart Sounds: normal S1, normal S2 and + murmur (2/6 ESM over precordium) Extremities: + edema (1+ edema bilaterally seems to be chronic) Gastrointestinal (Abdomen): Inspection/Auscultation: normal bowel sounds; abdomen not distended Percussion/Palpation: abdomen soft; abdomen nontender Musculoskeletal: No acute arthritis in any joint. No localized tenderness of the lower lumbar spine. Bilateral knee and hip joint Koopman did not produce any pain Neurologic: Alert, awake and oriented x3 Results & Data Results & Data ([facility]) Vital Signs (Past 12 Hours) Vital Signs Temp Pulse Pulse Resp BP BP Pulse Ox 04/22/21 08:25 36.5 C 67 72 16 124/62 96 04/22/21 03:00 37.0 C 71 16 145/83 H 97 04/22/21 02:30 68 16 169/80 H 96 Laboratory Results Short CBC 04/21/21 04/22/21 Range/Units 12:49 05:33 WBC 3.36 L 2.61 L (4.8-10.8) K/uL Hgb 8.9 L 8.9 L (12.0-16.0) g/dL Hct 27.2 L 27.3 L (37-47) % Plt Count 89 L 96 L (130-400) K/uL BMP 04/21/21 04/22/21 12:49 05:33 Sodium 137 137 Potassium 3.2 L 4.2 D Chloride 104 108 H Carbon Dioxide 24 23 BUN 23 17 Creatinine 0.84 0.74 Glucose 93 90 Calcium 8.6 8.1 L Cardiac Enzymes 04/21/21 04/21/21 04/22/21 Range/Units 12:49 19:22 01:02 Troponin I 0.10 H* 0.10 H* 0.10 H* (0-0.04) ng/ml Liver Function 04/21/21 Range/Units 12:49 Total Bilirubin 1.2 H (0.2-1.0) mg/dl AST 53 H (13-39) U/L ALT 34 (7-52) U/L Alkaline Phosphatase 101 (34-104) U/L Albumin 3.6 (3.4-5.0) gm/dl Medications Administered Current Inpatient Medications Acetaminophen (Acetaminophen 325 Mg Tab) 650 mg PO Q4H PRN PRN Reason: Pain or Fever Stop: 05/21/21 16:51 Last Admin: 04/22/21 05:34 Dose: 650 mg Documented by: Amlodipine Besylate (Amlodipine Besylate 5 Mg Tab) 5 mg PO [facility] Stop: 05/21/21 16:51 Last Admin: 04/22/21 07:55 Dose: 5 mg Documented by: Atorvastatin Calcium (Atorvastatin 40 Mg Tab) 40 mg PO [facility] Stop: 05/22/21 08:59 Last Admin: 04/22/21 07:54 Dose: 40 mg Documented by: Clopidogrel Bisulfate (Clopidogrel Bisulfate 75 Mg Tab) 75 mg PO [facility] Stop: 05/22/21 08:59 Last Admin: 04/22/21 07:54 Dose: 75 mg Documented by: Ezetimibe (Ezetimibe 10 Mg Tablet) 10 mg PO DAILY [facility] Stop: 05/22/21 08:59 Last Admin: 04/22/21 07:54 Dose: 10 mg Documented by: Folic Acid (Folic Acid 1 Mg Tab) 2 mg PO [facility] Stop: 05/22/21 08:59 Last Admin: 04/22/21 07:54 Dose: 2 mg Documented by: Gabapentin (Gabapentin 100 Mg Cap) 100 mg PO BID [facility] Stop: 05/21/21 20:59 Last Admin: 04/22/21 07:53 Dose: 100 mg Documented by: Leflunomide (Leflunomide 10 Mg Tab) 20 mg PO [facility] Stop: 05/22/21 08:59 Last Admin: 04/22/21 07:53 Dose: 20 mg Documented by: Metoprolol Succinate (Metoprolol Succ 50mg Ext Rel Tab) 50 mg PO BID [facility] Stop: 05/21/21 20:59 Last Admin: 04/22/21 07:53 Dose: 50 mg Documented by: Multivitamins (Multivitamin Tab) 1 tab PO [facility] Stop: 05/22/21 08:59 Last Admin: 04/22/21 07:54 Dose: 1 tab Documented by: Ondansetron HCl (Ondansetron Inj 2 Mg/Ml 2 Ml Vial) 4 mg IV Q6H PRN PRN Reason: Nausea And Vomiting Stop: 05/22/21 08:32 Last Admin: 04/22/21 09:18 Dose: 4 mg Documented by: Pantoprazole Sodium (Pantoprazole 40 Mg Tab) 40 mg PO DAILY [facility] Stop: 05/22/21 08:59 Last Admin: 04/22/21 07:54 Dose: 40 mg Documented by: Prednisone (Prednisone 5 Mg Tab) 5 mg PO QAM [facility] Stop: 05/22/21 08:59 Last Admin: 04/22/21 07:54 Dose: 5 mg Documented by: Sennosides (Senna 8.6 Mg Tab) 8.6 mg PO DAILY [facility] Stop: 05/22/21 08:59 Last Admin: 04/22/21 07:54 Dose: 8.6 mg Documented by: Warfarin Sodium (Warfarin Sod 2.5 Mg Tab) 2.5 mg PO [id number]@1600 [facility] Stop: 05/22/21 15:59 Warfarin Sodium (Warfarin Sod 1.25 Mg Tab) 1.25 mg PO Mo@1600 [facility] Stop: 05/21/21 17:44 Last Admin: 04/21/21 18:39 Dose: 1.25 mg Documented by: (1) Chest pain Chest pain type: unspecified Qualified Code(s): R07.9 - Chest pain, unspecified (2) HTN (hypertension) Hypertension type: essential hypertension Qualified Code(s): I10 - Essential (primary) hypertension
--- NOTE | 2021-04-22 12:17 | Electrocardiogram Report ---
Test Reason : Blood Pressure : / mmHG Vent. Rate : 073 BPM Atrial Rate : 073 BPM P-R Int : 224 ms QRS Dur : 090 ms QT Int : 412 ms P-R-T Axes : 050 -46 037 degrees QTc Int : 453 ms Sinus rhythm with 1st degree A-V block with Premature atrial complexes Left axis deviation Voltage criteria for left ventricular hypertrophy Abnormal ECG When compared with ECG of 21-APR-2021 13:04, Premature atrial complexes are now Present VA interval has increased QRS duration has decreased Nonspecific T wave abnormality has replaced inverted T waves in Lateral leads Confirmed by Zackary Mandel ([id number]) on 04/22/2021 12:17:15 PM Referred By: REFERRED SELF Confirmed By:Jd Mandel
[2021-04-22] MEDS ORDERED: WARFARIN SOD 2.5 MG TAB PO SCH (16:00)
--- NOTE | 2021-04-23 09:45 | Discharge Summary ---
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 Pt reports that she underwent a TAVR on 04/15/21 without complication, monitored overnight, and discharged on 04/16/21. She has done fine since then until this morning. She was watching TV and dozing intermittently when she had the abrupt onset of sharp chest pain radiating to her right jaw. She had some mild associated palpitations but denies associated SOB, diaphoresis, N/V, dizziness or syncope. When EMS arrived they gave her aspirin which she reports resolved her chest pain. No recurrence since then. She denies similar chest pain prior. Before the TAVR, she was having LEMONS but no chest pain. She reports minimal exertion post-TAVR so she is unsure if this is improved. 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 She is on chronic anticoagulation due to prior DVT/PE but is unsure of her current dose. No increased LE edema. Admission Exam Per Admitting Provider Review of Systems: All systems reviewed & are unremarkable except as noted in HPI & below Constitutional: + fatigue; no fever, no chills, no sweat s and no anorexia Eyes: no diplopia and no worsening vision Ear, Nose, Mouth, Throat: no nasal congestion, no nasal discharge and no sore throat Respiratory: no cough, no chest congestion, no dyspnea and no wheezing Cardiovascular: as per Subjective / HPI and + edema (chronic LE); no lightheadedness and no syncope Gastrointestinal: + blood in stools (occasional due to hem orrhoid); no abdominal pain, no nausea, no vomiting and no diarrhea/loose stools Genitourinary: no dysuria, no urinary frequency and no hematuria Musculoskeletal: + back pain and + radicular pain Integumentary: no rash and no yellowing of the skin Neurologic: + headache(s) (occasional but none at pr esent); no falls and no paresthesia Psychiatric: no depression and no anxiety Principal Diagnosis Chest pain, no ACS, recent TAVR, acute on chronic back, hypertension Discharge Exam Sitting at the edge of the bed without any acute distress Constitutional average body habitus; not ill appearing Eyes PERRL, conjunctivae normal, anicteric sclerae ENMT external ear and nose normal, oropharynx normal Neck trachea midline, no thyromegaly Respiratory no respiratory distress Auscultation: + crackles (Minimal crackles at the bases) Cardiovascular Rate/Rhythm: regular rate and regular rhythm; not tachycardic Heart Sounds: normal S1, normal S2 and + murmur (2/6 ESM over precordium) Extremities: + edema (1+ edema bilaterally seems to be chronic) Gastrointestinal (Abdomen) Inspection/Auscultation: normal bowel sounds; abdomen not distended Percussion/Palpation: abdomen soft; abdomen nontender Discharge Data Allergies Allergy/AdvReac Type Severity Reaction Status Date / Time baclofen Allergy Mild DIZZY Verified 04/21/21 15:31 Penicillins Allergy Mild RASH Verified 04/21/21 15:31 Sulfa (Sulfonamide Allergy Mild HEADACHE Verified 04/21/21 15:31 Antibiotics) Consultations 04/21/21 14:17 ED Decision to Admit Stat 04/21/21 14:33 Consult Cardiology Routine Hospital Course (1) Chest pain: - Admit for monitoring on telemetry - Serial troponins - Repeate EKG in AM - Consult cardiology (2) Hypokalemia: Replete potassium, phosphate and magnesium. Recheck labs in AM (3) S/P TAVR (transcatheter aortic valve replacement): (4) CKD (chronic kidney disease) stage 3, GFR 30-59 ml/min: (5) HTN (hypertension): (6) CAD (coronary artery disease): (7) HLD (hyperlipidemia): (8) GERD (gastroesophageal reflux disease): Continue other home medications as appropriate Continue anticoagulation as recommended by co[facility] clinic at visit last week - repeat INR in AM Pt seen and reviewed with collaborating physician, Dr. Gastelum. Plan of care discussed and as outlined above. DVT Prophylaxis: pt on chronic warfarin as outpatient - will continue Code Status: Full Code Terence Heart PA-C Total Time Total Time Spent Total Time Spent (In Minutes): 35 minutes Discharge Plan Discharge Items Patient Disposition: Home - Self-Care Reason For Visit: CHEST PAIN Discharge Diagnosis: Chest pain, no ACS, recent TAVR, acute on chronic back, hypertension Condition on Discharge: Fair Activity: Resume your previous activity Non-emergency contact: Primary Care Provider Call non-emergency contact if: you have any medication questions and your symptoms worsen Follow-up/Referrals: Shea Colbert DO [Primary Care Provider] - (Date & Time 04/23/2021 11:10 AM Provider Shea Colbert DO [facility] ) Diet: Heart Healthy Addtl Attending Provider Instructions: Please take precautions to avoid fall Take your medications as advised Please keep appointments with your healthcare provider Pending Studies at Discharge: No Stand-Alone Forms: [employer], Smoking Cessation Medications and DC Order Prescriptions: New prednisone 20 mg tablet 20 mg PO BID 5 Days Qty: 10 RF: 0 Continued multivitamin Tablet 1 tab PO QAM RF: 0 atorvastatin 40 mg tablet 40 mg PO QAM RF: 0 metoprolol succinate 50 mg tablet extended release 24 hr 50 mg PO BID RF: 0 prednisone 5 mg Tablet 5 mg PO QAM RF: 0 coenzyme Q10 10 mg Capsule 10 mg PO QPM RF: 0 hydrochlorothiazide 25 mg Tablet 25 mg PO DAILY PRN (Reason: Fluid Retention) RF: 0 leflunomide [Arava] 10 mg tablet 20 mg PO QAM RF: 0 folic acid 1 mg Tablet 2 mg PO QAM RF: 0 methotrexate sodium 2.5 mg tablet 10 mg PO FR RF: 0 clopidogrel 75 mg tablet 75 mg PO QAM RF: 0 ropinirole 3 mg tablet 3 mg PO HS PRN (Reason: Restless Leg(S)) RF: 0 amlodipine [Norvasc] 5 mg Tablet 5 mg PO QAM Qty: 30 RF: 1 pantoprazole 40 mg tablet,delayed release (DR/EC) 40 mg PO DAILY RF: 0 ezetimibe 10 mg tablet 10 mg PO DAILY RF: 0 sennosides [senna] 8.6 mg Tablet 8.6 mg PO DAILY RF: 0 warfarin 2.5 mg tablet See Rx Instructions .ROUTE .COMPLEX RF: 0 gabapentin 100 mg capsule 100 mg PO BID RF: 0 Discharge Orders: Discharge Order (Routine); Ordered 04/22/21 Ordered By: Miguel Gonzáles Admission Data Admit Date/Time: 04/21/21 14:33 Attending Provider: Miguel Gonzáles Admit Provider: Gretta Gastelum Primary Care Provider: Shea Colbert Other Providers: Gretta Gastelum ; Terence Blanchard Other Interventions: Discharge Summary Assessment (RN) Last Done: 04/22/21 16:04
== END 2021-04-22 17:47 | disposition home or self-care (01) ==
LOC: EDINP 12:01 → ED 12:01 → SUATTDRO 14:33 → 2S 04-22 02:30

== ENCOUNTER 2021-05-04 15:34 | Inpatient (IN) ==
--- NOTE | 2021-05-04 16:07 | Emergency Department Note ---
Impression & Plan Acute UTI, Anemia, Elevated INR ED Provider Note NAME: MARCELLA YOUNGBLOOD AGE: 80 SEX: F : 1940 ARRIVES VIA: Ambulance INFORMANT: Patient, ED PROVIDER(S): Leland Quiroga MD Chief Complaint: Fever, confusion, nausea vomiting, back and leg pain HPI: Patient presents due to concern for reported fever nausea vomiting back and leg pain. Patient states that she currently does not have pain and that it is chronic in nature and likely sciatica as that will radiate down the bilateral lower extremities but stops at about the knees. Patient states that this has been ongoing for several months believes this was initially precipitated by a fall. Patient denies any chest pains or shortness of breath. The patient did have several episodes of vomiting today but states that she currently does not have any abdominal pain. Patient has leg pain in regards to the back pain but there is no pain to palpation to the legs themselves. Patient believes that she did take pain medications morning and this has greatly alleviated her symptoms. The patient denies any recent falls or trauma denies any headache or neck pain. Patient has had some heaviness of the right lower extremity but she states that this is chronic and ongoing since she had her TAVR completed approximately month ago. Per patient's most recent cardiology note the time of the patient had been admitted toward the end of March the patient was seen for sciatic leg pain and atypical chest pain. Patient had an echo completed at time that showed normal LV function no wall motion abnormalities and appropriate function of the TAVR. The patient had a minimal pericardial effusion likely incidental in nature. Patient has a history of rheumatoid arthritis as well and the patient had been on methotrexate as well as prednisone 5 mg daily. Patient w/ past medical history of CAD, history of PCI x2 in February 2020 hypertension, hyperlipidemia, GERD, history of PE/DVT in 2017 on warfarin, INA on CPAP, history of aortic stenosis status post TAVR on 04/16 at [facility]. ROS: See HPI for pertinent positives and negatives. A total of 10 systems were reviewed and otherwise negative. Past medical history: See below Surgical history: See below Social history: See below Physical Exam: GENERAL: NAD, wearing glasses, wearing a mask, non-toxic. EYE EXAM: Normal conjunctiva. PERRL, no anisocoria and EOM's grossly intact w/o pain. OROPHARYNX: Dry mucus membranes. Grossly normal dentition. NECK: Supple, no nuchal rigidity, no adenopathy, non-tender. No signs of meningismus. LUNGS: Clear to auscultation. Normal chest wall mechanics. HEART: NSR, no MRG. ABDOMEN: Abdomen soft, mild lower abdominal discomfort without upper abdominal pain, normo-active bowel sounds, no masses, no rebound or guarding. BACK: Mild reproducible left-sided paraspinal discomfort without overlying skin changes. SKIN: No rashes and no bruising. UPPER EXTREMITIES: Upper extremities are grossly normal. LOWER EXTREMITIES: Grossly normal, no edema. No reproducible pain to the thigh knee calves or feet bilaterally. No obvious sensory deficits. Compartments are soft. NEURO EXAM: A&O x3, cranial nerves II-XII grossly intact, normal speech, moves all 4 extremities, decreased movement of right lower extremity. No sensory deficits. Differential diagnoses: Musculoskeletal, disc herniation, fracture, metastatic disease, cord compression, discitis, sciatica, cauda equina, infection, aortic disease, renal colic, gastrointestinal, as well as other pathologies. Course: Patient was seen and evaluated the bedside. Full history physical exam was performed. EKG interpreted by Sinus with first-degree AV block, rate of 81, left axis deviation, T wave inve rsion in aVL. Imaging Studies: See Below Cardiac monitoring: An order was placed for continuous cardiac monitoring. The monitor shows a rate of 85 with sinus rhythm. MDM: Patient presented due to concern for fever nausea vomiting back and leg pain. Blood work was obtained patient. Patient stated that she currently did not have any nausea or pain at the time of her history. CT abdomen pelvis ordered. Blood work shows normal white count with anemia 9.8 which is chronic and stable. Thrombocytopenia noted 116. Is also appears to be relatively chronic given last platelet count of 96,000 on April 22. Patient's kidney function does show some prerenal azotemia and was ordered IV fluids. Mild hypokalemia noted. TSH elevated but free T4 is normal. Urinalysis concerning for infection with leukocyte esterase's, WBCs, and bacteria. Given the patient's lower abdominal discomfort confusion and fever I did review prior sensitivities which showed E. coli sensitive to cephalosporins. Was resistant to fluoroquinolones. Covid negative. CT Abdo pelvis unremarkable. I did convey the findings to the patient. I did speak with the on-call hospitalist Meka Jaramillo PA-C and the patient was to be admitted by Dr. Liu. Did receive a phone call the patient's INR was greater than 10. Vitamin K of 10 mg was ordered IV. I did order a CT of the head as a precaution given the patient's reported confusion and elevated INR patient is not reported any recent falls. Past Med/Surg History Medical History CAD (coronary artery disease) Chronic anticoagulation CKD (chronic kidney disease) stage 3, GFR 30-59 ml/min Diverticular disease hx diverticulitis GERD (gastroesophageal reflux disease) History of DVT (deep vein thrombosis) a few years ago. remote h/o PE as well. on retirement anticoagulation HLD (hyperlipidemia) HTN (hypertension) Lumbar radiculopathy Obstructive sleep apnea WEARS O2 AT 2L AT HS On home oxygen therapy 2L AT HS Paroxysmal SVT (supraventricular tachycardia) Rheumatoid arthritis RLS (restless legs syndrome) Severe aortic stenosis SVT (supraventricular tachycardia) Surgical History H/O colonoscopy H/O eye surgery LEFT History of carpal tunnel surgery RT/LEFT History of esophagogastroduodenoscopy (EGD) History of heart artery stent 03/18/2020-TYLER x 2 to LAD History of lumbar fusion History of tooth extraction History of total knee replacement RT/LEFT S/P CHANNING-BSO S/P TAVR (transcatheter aortic valve replacement) Family History Other Heart disease No family history of adverse response to anesthesia Rheumatoid arthritis Social History Smoking Status: Never smoker Tobacco Type: Cigarettes Second Hand Exposure: Yes (IN THE PAST); Hx Alcohol Use: No Hx Substance Use: No Preferred Language: Romanian Communication Ability: Effective Banker Mason Required: No Beliefs That Will Affect Care: None marital status: Current Living Situation: Spouse Current Living Situation Comment: Lives with How many Children do You have: 1 Feels Safe at Home: Yes Assistive Devices: None Allergies Allergies Allergy/AdvReac Type Severity Reaction Status Date / Time baclofen Allergy Mild DIZZY Verified 05/04/21 17:39 Penicillins Allergy Mild RASH Verified 05/04/21 17:39 Sulfa (Sulfonamide Allergy Mild HEADACHE Verified 05/04/21 17:39 Antibiotics) Home Meds Home Medications Medication Instructions Recorded Confirmed atorvastatin 40 mg tablet 40 mg PO QAM 07/01/18 05/04/21 coenzyme Q10 10 mg capsule 10 mg PO QPM 07/01/18 05/04/21 hydrochlorothiazide 25 mg tablet 25 mg PO DAILY PRN 07/01/18 05/04/21 metoprolol succinate 50 mg 50 mg PO BID 07/01/18 05/04/21 tablet,extended release 24 hr multivitamin 1 tab PO QAM 07/01/18 05/04/21 prednisone 5 mg tablet 5 mg PO QAM 07/01/18 05/04/21 folic acid 1 mg tablet 2 mg PO QAM 10/17/19 05/04/21 leflunomide 10 mg tablet (Arava) 20 mg PO QAM 10/17/19 05/04/21 methotrexate sodium 2.5 mg tablet 10 mg PO FR 11/14/19 05/04/21 clopidogrel 75 mg tablet 75 mg PO QAM 05/09/20 05/04/21 ropinirole 3 mg tablet 3 mg PO HS PRN 05/09/20 05/04/21 ezetimibe 10 mg tablet 10 mg PO DAILY 04/21/21 05/04/21 gabapentin 100 mg capsule 100 mg PO BID 04/21/21 05/04/21 pantoprazole 40 mg tablet,delayed 40 mg PO DAILY 04/21/21 05/04/21 release sennosides 8.6 mg tablet (senna) 8.6 mg PO DAILY 04/21/21 05/04/21 warfarin 2.5 mg tablet 2.5 mg PO [id number] 04/21/21 05/04/21 warfarin 2.5 mg tablet 1.25 mg PO WK 05/04/21 05/04/21 Previous Rx's Medication Instructions Recorded amlodipine 5 mg tablet (Norvasc) 5 mg PO QAM #30 tab 05/10/20 Results & Data (ED) Vital Signs Vital Signs - 24 hr 05/04/21 15:34 05/04/21 17:11 05/04/21 19:00 Temperature 37.3 C Temperature Source Oral Pulse Rate 73 Pulse Rate [Apical] 91 H 90 Pulse Rhythm [Apical] Regular Pulse Strength [Apical] Normal Respiratory Rate 18 20 21 Respiratory Effort / Characteristics Non-Labored Non-Labored Respiratory Depth Normal Normal Respiratory Pattern Regular Blood Pressure 125/44 L Blood Pressure [Left Arm] 109/49 L 153/72 H Blood Pressure Mean 71 Blood Pressure Mean [Left Arm] 69 99 Blood Pressure Position [Left Arm] Lying Pulse Oximetry 94 97 96 Oxygen Delivery Method Room Air Room Air Room Air Sepsis Recent Fever Within 48 Hours No Sepsis New/Unexplained Change in Mental Status No Sepsis Action Taken by Nursing No Action Required Home Medications Current Medication List: was personally reviewed by me Laboratory Data Attestation: I reviewed the patient's lab results. Result diagrams: 05/06/21 05:32 05/06/21 05:32 Lab Results 05/04/21 05/04/21 05/04/21 Range/Units 15:45 15:45 15:45 WBC 7.53 (4.8-10.8) K/uL RBC 2.76 L (4.2-5.4) M/uL Hgb 9.8 L (12.0-16.0) g/dL Hct 29.0 L (37-47) % MCV 105.1 H (80-100) fL MCH 35.5 H (25-34) pg MCHC 33.8 (32-36) g/dL RDW Std Deviation 73.4 H (36.4-46.3) fL RDW Coeff of Keila 19.6 H (11.5-14.5) % Plt Count 116 L (130-400) K/uL MPV 12.7 H (7.4-10.4) fL Immature Gran % (Auto) 0.7 % Neut % (Auto) 86.4 % Lymph % (Auto) 5.4 % [place] % (Auto) 4.9 % Eos % (Auto) 2.1 % Baso % (Auto) 0.5 % Neut # (Auto) 6.50 (1.4-6.5) K/uL Lymph # (Auto) 0.41 L (1.2-3.4) K/uL [place] # (Auto) 0.37 (0.11-0.59) K/uL Eos # (Auto) 0.16 (0-0.5) K/uL Baso # (Auto) 0.04 (0-0.2) K/uL Immature Gran # (Auto) 0.05 H (0.00-0.02) K/uL Polychromasia 1+ PT (9.0-12.0) Seconds INR (0.9-1.1) Sodium 137 (136-145) mmol/L Potassium 3.1 L (3.5-5.1) mmol/L Chloride 101 (98-107) mmol/L Carbon Dioxide 25 (21-32) mmol/L Anion Gap 11 (3-11) BUN 24 H (6-23) mg/dl Creatinine 0.92 (0.6-1.2) mg/dl Est Cr Clr Drug Dosing 37.8 ml/min Est GFR ( Amer) 67.7 ml/min Est GFR (Non-Af Amer) 58.4 ml/min BUN/Creatinine Ratio 26.1 H (10-20) Glucose 120 H (70-99(Fasting)) mg/dl Calcium 8.6 (8.5-10.1) mg/dl Total Bilirubin 1.5 H (0.2-1.0) mg/dl AST 57 H (13-39) U/L ALT 36 (7-52) U/L Alkaline Phosphatase 101 (34-104) U/L Troponin I (0-0.04) ng/ml Total Protein 6.3 (6.0-8.3) gm/dl Albumin 3.6 (3.4-5.0) gm/dl Globulin 2.7 (2.5-4.0) gm/dl Albumin/Globulin Ratio 1.3 (0.9-2) TSH 18.296 H (0.300-4.500) uIu/ml Free T4 0.61 (0.61-1.60) ng/dl Urine Color Urine Appearance (Clear) Urine pH (4.5-7.5) Ur Specific [place] (1.000-1.030) Urine Protein (Negative) Urine Glucose (UA) (Negative) Urine Ketones (Negative) Urine Blood (Negative) Urine Nitrite (Negative) Urine Bilirubin (Negative) Urine Urobilinogen (Negative) Ur Leukocyte Esterase (Negative) Urine WBC (Auto) (0-5) /hpf Urine RBC (Auto) (0-4) /hpf U Hyaline Cast (Auto) (0-5) /lpf U Epithel Cells (Auto) (0-5) /lpf Urine Bacteria (Auto) (Negative) SARS-CoV-2, RNA, NAAT (NEGATIVE) 05/04/21 05/04/21 05/04/21 Range/Units 15:45 15:45 17:15 WBC (4.8-10.8) K/uL RBC (4.2-5.4) M/uL Hgb (12.0-16.0) g/dL Hct (37-47) % MCV (80-100) fL MCH (25-34) pg MCHC (32-36) g/dL RDW Std Deviation (36.4-46.3) fL RDW Coeff of Keila (11.5-14.5) % Plt Count (130-400) K/uL MPV (7.4-10.4) fL Immature Gran % (Auto) % Neut % (Auto) % Lymph % (Auto) % [place] % (Auto) % Eos % (Auto) % Baso % (Auto) % Neut # (Auto) (1.4-6.5) K/uL Lymph # (Auto) (1.2-3.4) K/uL [place] # (Auto) (0.11-0.59) K/uL Eos # (Auto) (0-0.5) K/uL Baso # (Auto) (0-0.2) K/uL Immature Gran # (Auto) (0.00-0.02) K/uL Polychromasia PT > 90.0 H (9.0-12.0) Seconds INR > 10.7 H* (0.9-1.1) Sodium (136-145) mmol/L Potassium (3.5-5.1) mmol/L Chloride (98-107) mmol/L Carbon Dioxide (21-32) mmol/L Anion Gap (3-11) BUN (6-23) mg/dl Creatinine (0.6-1.2) mg/dl Est Cr Clr Drug Dosing ml/min Est GFR ( Amer) ml/min Est GFR (Non-Af Amer) ml/min BUN/Creatinine Ratio (10-20) Glucose (70-99(Fasting)) mg/dl Calcium (8.5-10.1) mg/dl Total Bilirubin (0.2-1.0) mg/dl AST (13-39) U/L ALT (7-52) U/L Alkaline Phosphatase (34-104) U/L Troponin I 0.04 (0-0.04) ng/ml Total Protein (6.0-8.3) gm/dl Albumin (3.4-5.0) gm/dl Globulin (2.5-4.0) gm/dl Albumin/Globulin Ratio (0.9-2) TSH (0.300-4.500) uIu/ml Free T4 (0.61-1.60) ng/dl Urine Color Dark Yellow Urine Appearance Cloudy A (Clear) Urine pH 5.0 (4.5-7.5) Ur Specific [place] 1.019 (1.000-1.030) Urine Protein Trace H (Negative) Urine Glucose (UA) Negative (Negative) Urine Ketones Trace H (Negative) Urine Blood Negative (Negative) Urine Nitrite Negative (Negative) Urine Bilirubin Negative (Negative) Urine Urobilinogen Negative (Negative) Ur Leukocyte Esterase 1+ H (Negative) Urine WBC (Auto) >30 H (0-5) /hpf Urine RBC (Auto) 0-4 (0-4) /hpf U Hyaline Cast (Auto) 5-10 H (0-5) /lpf U Epithel Cells (Auto) 10-20 H (0-5) /lpf Urine Bacteria (Auto) 4+ H (Negative) SARS-CoV-2, RNA, NAAT (NEGATIVE) 05/04/21 Range/Units 18:30 WBC (4.8-10.8) K/uL RBC (4.2-5.4) M/uL Hgb (12.0-16.0) g/dL Hct (37-47) % MCV (80-100) fL MCH (25-34) pg MCHC (32-36) g/dL RDW Std Deviation (36.4-46.3) fL RDW Coeff of Keila (11.5-14.5) % Plt Count (130-400) K/uL MPV (7.4-10.4) fL Immature Gran % (Auto) % Neut % (Auto) % Lymph % (Auto) % [place] % (Auto) % Eos % (Auto) % Baso % (Auto) % Neut # (Auto) (1.4-6.5) K/uL Lymph # (Auto) (1.2-3.4) K/uL [place] # (Auto) (0.11-0.59) K/uL Eos # (Auto) (0-0.5) K/uL Baso # (Auto) (0-0.2) K/uL Immature Gran # (Auto) (0.00-0.02) K/uL Polychromasia PT (9.0-12.0) Seconds INR (0.9-1.1) Sodium (136-145) mmol/L Potassium (3.5-5.1) mmol/L Chloride (98-107) mmol/L Carbon Dioxide (21-32) mmol/L Anion Gap (3-11) BUN (6-23) mg/dl Creatinine (0.6-1.2) mg/dl Est Cr Clr Drug Dosing ml/min Est GFR ( Amer) ml/min Est GFR (Non-Af Amer) ml/min BUN/Creatinine Ratio (10-20) Glucose (70-99(Fasting)) mg/dl Calcium (8.5-10.1) mg/dl Total Bilirubin (0.2-1.0) mg/dl AST (13-39) U/L ALT (7-52) U/L Alkaline Phosphatase (34-104) U/L Troponin I (0-0.04) ng/ml Total Protein (6.0-8.3) gm/dl Albumin (3.4-5.0) gm/dl Globulin (2.5-4.0) gm/dl Albumin/Globulin Ratio (0.9-2) TSH (0.300-4.500) uIu/ml Free T4 (0.61-1.60) ng/dl Urine Color Urine Appearance (Clear) Urine pH (4.5-7.5) Ur Specific [place] (1.000-1.030) Urine Protein (Negative) Urine Glucose (UA) (Negative) Urine Ketones (Negative) Urine Blood (Negative) Urine Nitrite (Negative) Urine Bilirubin (Negative) Urine Urobilinogen (Negative) Ur Leukocyte Esterase (Negative) Urine WBC (Auto) (0-5) /hpf Urine RBC (Auto) (0-4) /hpf U Hyaline Cast (Auto) (0-5) /lpf U Epithel Cells (Auto) (0-5) /lpf Urine Bacteria (Auto) (Negative) SARS-CoV-2, RNA, NAAT NEGATIVE (NEGATIVE) Administered Medications Acetaminophen (Acetaminophen 325 Mg Tab) 650 mg PO Q4H PRN PRN Reason: Pain or Fever Stop: 06/03/21 21:12 Last Admin: 05/06/21 17:02 Dose: 650 mg Documented by: [id number] Admin: 05/06/21 01:40 Dose: 650 mg Documented by: [id number] Admin: 05/05/21 20:22 Dose: 650 mg Documented by: [id number] Admin: 05/05/21 14:59 Dose: 650 mg Documented by: [id number] Admin: 05/05/21 10:26 Dose: 650 mg Documented by: [id number] Admin: 05/05/21 05:49 Dose: 650 mg Documented by: [id number] Admin: 05/04/21 21:47 Dose: 650 mg Documented by: [id number] Amlodipine Besylate (Amlodipine Besylate 5 Mg Tab) 5 mg PO [facility] Stop: 06/04/21 08:59 Last Admin: 05/06/21 10:45 Dose: 5 mg Documented by: [id number] Admin: 05/05/21 07:58 Dose: 5 mg Documented by: [id number] Atorvastatin Calcium (Atorvastatin 40 Mg Tab) 40 mg PO [facility] Stop: 06/04/21 08:59 Last Admin: 05/06/21 12:31 Dose: Not Given Documented by: [id number] Admin: 05/05/21 07:58 Dose: 40 mg Documented by: [id number] Clopidogrel Bisulfate (Clopidogrel Bisulfate 75 Mg Tab) 75 mg PO [facility] Stop: 06/04/21 08:59 Last Admin: 05/06/21 12:30 Dose: 75 mg Documented by: [id number] Admin: 05/05/21 07:59 Dose: 75 mg Documented by: [id number] Ezetimibe (Ezetimibe 10 Mg Tablet) 10 mg PO DAILY [facility] Stop: 06/04/21 08:59 Last Admin: 05/06/21 12:31 Dose: Not Given Documented by: [id number] Admin: 05/05/21 07:59 Dose: 10 mg Documented by: [id number] Folic [facility] ([facility] 1 Mg Tab) [facility] Stop: 06/04/21 08:59 Last Admin: 05/06/21 12:31 Dose: Not Given Documented by: [id number] Admin: 05/05/21 07:59 Dose: 2 mg Documented by: [id number] Gabapentin (Gabapentin 100 Mg Cap) 100 mg PO BID [facility] Stop: 06/03/21 21:29 Last Admin: 05/06/21 12:31 Dose: Not Given Documented by: [id number] Admin: 05/05/21 20:24 Dose: 100 mg Documented by: [id number] Admin: 05/05/21 07:57 Dose: 100 mg Documented by: [id number] Admin: 05/04/21 21:46 Dose: 100 mg Documented by: [id number] Ceftriaxone Sodium 1,000 mg/ (Dextrose) 50 mls @ 100 mls/hr IV Q24H [facility]; Protocol Stop: 05/15/21 17:59 Last Admin: 05/06/21 16:49 Dose: 100 mls/hr Documented by: [id number] Infusion: 05/05/21 18:34 Dose: 0 mls/hr Documented by: [id number] Admin: 05/05/21 18:02 Dose: 100 mls/hr Documented by: [id number] Leflunomide (Leflunomide 10 Mg Tab) [facility] Stop: 06/04/21 08:59 Last Admin: 05/06/21 12:30 Dose: Not Given Documented by: [id number] Admin: 05/05/21 07:58 Dose: 20 mg Documented by: [id number] Lidocaine (Lidocaine 5% 1 Patch) [facility] Stop: 06/04/21 14:14 Last Admin: 05/06/21 10:16 Dose: 1 patch Documented by: [id number] Admin: 05/05/21 14:59 Dose: 1 patch Documented by: [id number] Metoprolol Succinate (Metoprolol Succ 50mg Ext Rel Tab) 50 mg PO BID [facility] Stop: 06/03/21 21:29 Last Admin: 05/06/21 10:45 Dose: 50 mg Documented by: [id number] Admin: 05/05/21 20:23 Dose: 50 mg Documented by: [id number] Admin: 05/05/21 07:57 Dose: 50 mg Documented by: [id number] Admin: 05/04/21 21:46 Dose: 50 mg Documented by: [id number] Miscellaneous (Remove Lidoderm Patch) 1 ea N/A DAILY@2100 [facility] Stop: 06/04/21 20:59 Last Admin: 05/05/21 20:24 Dose: 1 ea Documented by: [id number] Multivitamins (Multivitamin Tab) 1 tab PO [facility] Stop: 06/04/21 08:59 Last Admin: 05/06/21 12:30 Dose: Not Given Documented by: [id number] Admin: 05/05/21 07:59 Dose: 1 tab Documented by: [id number] Ondansetron HCl (Ondansetron Inj 2 Mg/Ml 2 Ml Vial) 4 mg IV TID PRN PRN Reason: Nausea Stop: 06/05/21 08:21 Last Admin: 05/06/21 16:49 Dose: 4 mg Documented by: [id number] Admin: 05/06/21 08:40 Dose: 4 mg Documented by: [id number] Pantoprazole Sodium (Pantoprazole 40 Mg Tab) 40 mg PO DAILY [facility] Stop: 06/04/21 08:59 Last Admin: 05/06/21 12:30 Dose: 40 mg Documented by: [id number] Admin: 05/05/21 07:59 Dose: 40 mg Documented by: [id number] Prednisone (Prednisone 5 Mg Tab) [facility] Stop: 06/04/21 08:59 Last Admin: 05/06/21 12:30 Dose: Not Given Documented by: [id number] Admin: 05/05/21 07:59 Dose: 5 mg Documented by: [id number] Ropinirole HCl (Ropinirole Hcl 1 Mg Tablet) 3 mg PO HS PRN PRN Reason: Restless Leg(S) Stop: 06/03/21 21:12 Last Admin: 05/05/21 22:29 Dose: 3 mg Documented by: [id number] Sennosides (Senna 8.6 Mg Tab) 8.6 mg PO DAILY [facility] Stop: 06/04/21 08:59 Last Admin: 05/06/21 12:30 Dose: Not Given Documented by: [id number] Admin: 05/05/21 08:04 Dose: Not Given Documented by: [id number] Tramadol HCl (Tramadol Hcl 50 Mg Tablet) 25 mg PO Q4H PRN PRN Reason: moderate/severe pain Stop: 06/05/21 15:31 Last Admin: 05/06/21 15:49 Dose: 25 mg Documented by: [id number] Warfarin Sodium (Warfarin Sod 2.5 Mg Tab) 2.5 mg PO SuTuWeThFrSa@1600 [facility] Stop: 06/05/21 15:59 Last Admin: 05/06/21 16:32 Dose: 2.5 mg Documented by: [id number] Discontinued Medications Ceftriaxone Sodium (Rocephin) 2,000 mg in 70 mls @ 140 mls/hr IV NOW STA Stop: 05/04/21 18:47 Last Infusion: 05/04/21 19:46 Dose: 0 mls/hr Documented by: [id number] Admin: 05/04/21 18:38 Dose: 140 mls/hr Documented by: [id number] Sodium Chloride (Nss 1000ml) 500 mls @ 999 mls/hr IV .Q31M ONE Stop: 05/04/21 18:58 Last Infusion: 05/04/21 19:46 Dose: 0 mls/hr Documented by: [id number] Admin: 05/04/21 18:38 Dose: 999 mls/hr Documented by: [id number] Phytonadione 10 mg/ Dextrose 51 mls @ 102 mls/hr IV ONE ONE Stop: 05/04/21 19:44 Last Infusion: 05/04/21 20:30 Dose: 0 mls/hr Documented by: [id number] Admin: 05/04/21 20:00 Dose: 102 mls/hr Documented by: [id number] Ioversol (Optiray 320 100ml) 95 ml IV ONCE ONE Stop: 05/04/21 17:46 Last Admin: 05/04/21 21:40 Dose: Not Given Documented by: [id number] Non-Formulary Medication (Coenzyme Q10) 10 mg PO QPM [facility] Stop: 06/03/21 21:12 Last Admin: 05/04/21 21:40 Dose: Not Given Documented by: [id number] Ondansetron HCl (Ondansetron Inj 2 Mg/Ml 2 Ml Vial) Confirm Administered Dose 4 mg .ROUTE .STK-MED ONE Stop: 05/06/21 08:38 Last Admin: 05/06/21 10:55 Dose: Not Given Documented by: [id number] Potassium Chloride (Potassium Chloride Crtab 20 Meq Tabcr) 40 meq PO NOW STA Stop: 02/06/22 23:08 Last Admin: 05/04/21 23:24 Dose: 40 meq Documented by: [id number] Potassium Chloride (Potassium Chloride Crtab 20 Meq Tabcr) 20 meq PO NOW STA Stop: 05/05/21 10:59 Last Admin: 05/05/21 11:27 Dose: 20 meq Documented by: [id number] Potassium Phosphate (Pot Phosphate Monobasic W/ Sod Tab) 2 tab PO ONCE ONE Stop: 05/06/21 10:04 Last Admin: 05/06/21 12:30 Dose: 2 tab Documented by: [id number] Imaging Data Radiologist's Impression: Abdomen/Pelvis CT 05/04/21 16:23 CT abd pelvis IV con only CLINICAL HISTORY: n/v, LBP COMPARISON STUDY: 05/31/2019 CT DOSE: 273.41 mGy.cm TECHNIQUE: Standard CT of the Abdomen and Pelvis was performed with IV contrast. A dose lowering technique was utilized adhering to the principles of ALARA. Contrast Volume: Optiray 320, 95 ml. The patient did not receive oral contrast. FINDINGS: Lung base: The patient is status post aortic valve replacement. Pleural thickening is again seen in the left lung base posteriorly. The lung bases are otherwise clear. Abdominal cavity: There is no evidence for abdominal mass, adenopathy or ascites. Liver: There is homogeneous attenuation of the liver parenchyma. There is no jaye dence for enhancing mass lesion. Spleen: There is homogeneous attenuation of the splenic parenchyma. There is no enhancing mass lesion. Pancreas: There is homogeneous attenuation of the pancreatic parenchyma. There is no evidence for mass lesion or peripancreatic fluid collection. Gall Bladder: The gallbladder is well distended with no evidence for intraluminal calculi, wall thickening or pericholecystic edema. Adrenal glands: The adrenal glands are normal in size and attenuation. There is no evidence for enhancing mass lesion. Kidneys: There is homogeneous attenuation of the renal parenchyma bilaterally. There are again bilateral nonobstructing renal calculi. There is no evidence for hydronephrosis bilaterally. There is no evidence for enhancing mass. Bowel: The bowel loops are normally placed within the abdomen and pelvis without evidence for dilatation or obstruction. There is no evidence for mass lesion. There is sigmoid diverticulosis without evidence for diverticulitis. There are no inflammatory changes present. There is no evidence for free air. There is no evidence for dilated appendix. Bladder: The bladder is within normal limits with no evidence for focal mass, calculus or diverticulum. : There is no evidence for pelvic mass or adenopathy. There is no evidence for pelvic ascites. Vasculature: There is no evidence for aneurysmal dilatation of the abdominal aorta. Atherosclerotic calcification is present. Osseous structures: There is no acute osseous pathology. The bones are osteopenic. Patient is status post internal fixation of lower lumbar spine. Old anterior wedge deformities present of the 11 and T12. No acute compression fracture. IMPRESSION: 1. Bilateral nonobstructing renal calculi no evidence for hydronephrosis is again seen. 2. Sigmoid diverticulosis without evidence for diverticulitis. 3. Degenerative changes, previous internal fixation and remote injury wedge deformities within the lumbar spine. No acute abnormality. 4. No acute abnormality with additional nonacute findings as described above. ACT 112: Negative or not required by law. Electronically signed by: Speedy Caicedo M.D. 05/04/2021 6:23 PM Chest X-Ray 05/04/21 16:24 XR chest 1V portable CLINICAL HISTORY: weakness. Evaluate cardiopulmonary status COMPARISON STUDY: 04/21/2021 TECHNIQUE: 1 view of the chest FINDINGS: Single frontal view of the chest demonstrates the cardiomediastinal silhouette to be within normal limits. There is a decreased inspiratory effort with elevation of the hemidiaphragms and crowding of the bronchovascular markings at the lung bases and centrally. The lungs are clear of alveolar opacities. There is no evidence for pleural effusion. There is no evidence for vascular congestion. There is no acute osseous pathology. IMPRESSION: There is a decreased inspiratory effort with otherwise no acute chest disease. ACT 112: Negative or not required by law. Electronically signed by: Speedy Caicedo M.D. 05/04/2021 5:43 PM Abdomen/Pelvis CT 05/04/21 16:23 CT abd pelvis IV con only CLINICAL HISTORY: n/v, LBP COMPARISON STUDY: 05/31/2019 CT DOSE: 273.41 mGy.cm TECHNIQUE: Standard CT of the Abdomen and Pelvis was performed with IV contrast. A dose lowering technique was utilized adhering to the principles of ALARA. Contrast Volume: Optiray 320, 95 ml. The patient did not receive oral contrast. FINDINGS: Lung base: The patient is status post aortic valve replacement. Pleural thickening is again seen in the left lung base posteriorly. The lung bases are otherwise clear. Abdominal cavity: There is no evidence for abdominal mass, adenopathy or ascites. Liver: There is homogeneous attenuation of the liver parenchyma. There is no evidence for enhancing mass lesion. Spleen: There is homogeneous attenuation of the splenic parenchyma. There is no enhancing mass lesion. Pancreas: There is homogeneous attenuation of the pancreatic parenchyma. There is no evidence for mass lesion or peripancreatic fluid collection. Gall Bladder: The gallbladder is well distended with no evidence for intraluminal calculi, wall thickening or pericholecystic edema. Adrenal glands: The adrenal glands are normal in size and attenuation. There is no evidence for enhancing mass lesion. Kidneys: There is homogeneous attenuation of the renal parenchyma bilaterally. There are again bilateral nonobstructing renal calculi. There is no evidence for hydronephrosis bilaterally. There is no evidence for enhancing mass. Bowel: The bowel loops are normally placed within the abdomen and pelvis without evidence for dilatation or obstruction. There is no evidence for mass lesion. There is sigmoid diverticulosis without evidence for diverticulitis. There are no inflammatory changes present. There is no evidence for free air. There is no evidence for dilated appendix. Bladder: The bladder is within normal limits with no evidence for focal mass, calculus or diverticulum. : There is no evidence for pelvic mass or adenopathy. There is no evidence for pelvic ascites. Vasculature: There is no evidence for aneurysmal dilatation of the abdominal aorta. Atherosclerotic calcification is present. Osseous structures: There is no acute osseous pathology. The bones are osteopenic. Patient is status post internal fixation of lower lumbar spine. Old anterior wedge deformities present of the 11 and T12. No acute compression fracture. IMPRESSION: 1. Bilateral nonobstructing renal calculi no evidence for hydronephrosis is again seen. 2. Sigmoid diverticulosis without evidence for diverticulitis. 3. Degenerative changes, previous internal fixation and remote injury wedge deformities within the lumbar spine. No acute abnormality. 4. No acute abnormality with additional nonacute findings as described above. ACT 112: Negative or not required by law. Electronically signed by: Speedy Caicedo M.D. 05/04/2021 6:23 PM Chest X-Ray 05/04/21 16:24 XR chest 1V portable CLINICAL HISTORY: weakness. Evaluate cardiopulmonary status COMPARISON STUDY: 04/21/2021 TECHNIQUE: 1 view of the chest FINDINGS: Single frontal view of the chest demonstrates the cardiomediastinal silhouette to be within normal limits. There is a decreased inspiratory effort with elevation of the hemidiaphragms and crowding of the bronchovascular markings at the lung bases and centrally. The lungs are clear of alveolar opacities. There is no evidence for pleural effusion. There is no evidence for vascular congestion. There is no acute osseous pathology. IMPRESSION: There is a decreased inspiratory effort with otherwise no acute chest disease. ACT 112: Negative or not required by law. Electronically signed by: Speedy Caicedo M.D. 05/04/2021 5:[address] 05/04/21 19:15 CT head/brain wo con CLINICAL HISTORY: reported confusion; INR > 10 COMPARISON STUDY: 11/14/2019 CT DOSE: 638.56 mGycm TECHNIQUE: Standard CT of the Brain was performed without IV contrast. A dose lowering technique was utilized adhering to the principles of ALARA. FINDINGS: Extraaxial space: There is no evidence for subdural hematoma. There are no extra-axial fluid collections. Ventricles and cisterns: The ventricles are mildly dilated bilaterally. There is no evidence for midline shift or mass effect. Parenchyma: There is no subarachnoid or intraparenchymal hemorrhage. There is no evidence for an acute infarct or cerebral edema. There is mild cerebral cortical atrophy and decreased attenuation in the periventricular white matter representing remote small vessel disease. There are no gross mass lesions. Osseous structures: There is no evidence for an acute fracture. The visualized paranasal sinuses are clear. The mastoid air cells are clear bilaterally. Soft tissues: There is no evidence for focal soft tissue swelling. IMPRESSION: No acute intracerebral pathology. Cerebral cortical atrophy and remote small vessel disease. ACT 112: Negative or not required by law. Electronically signed by: Speedy Caicedo M.D. 05/04/2021 8:15 PM Discharge Plan Visit Data Chief Complaint: Illness Stated Complaint: Back Pain, Leg Pain, Vomiting, Fever ED Provider: Leland Quiroga Discharge Problem: Acute UTI, Anemia, Elevated INR Patient Disposition: Admitted As Inpatient Discharge Instructions Interventions: ED Discharge Assessment Last Done: 05/04/21 21:04 Discharge Problem: Anemia Qualifiers: Anemia type: unspecified type Qualified Code(s): D64.9 - Anemia, unspecified
[2021-05-04 16:44] LABS: Albumin Globulin Ratio 1.3 (0.9-2); Albumin Level 3.6 gm/dl (3.4-5.0); BUN Creatinine Ratio 26.1 (10-20); Bilirubin,Total 1.5 mg/dl (0.2-1.0); Calcium 8.6 mg/dl (8.5-10.1); Creatinine Clr Calc Pharmacy 37.8 ml/min; Est GFR (African American) 67.7 ml/min; Est GFR (Non-African American) 58.4 ml/min; Globulin 2.7 gm/dl (2.5-4.0); Potassium 3.1 mmol/L (3.5-5.1); Total Protein 6.3 gm/dl (6.0-8.3)
[2021-05-04 16:54] LABS: Hemoglobin 9.8 g/dL (12.0-16.0); Mean Corpuscular Hemoglobin 35.5 pg (25-34); Mean Corpuscular Hgb Conc 33.8 g/dL (32-36); Mean Corpuscular Volume 105.1 fL (80-100); Mean Platelet Volume 12.7 fL (7.4-10.4); Platelet Count 116 K/uL (130-400); RDW Coefficient of Variation 19.6 % (11.5-14.5); RDW Standard Deviation 73.4 fL (36.4-46.3); Red Blood Count 2.76 M/uL (4.2-5.4); White Blood Count 7.53 K/uL (4.8-10.8)
[2021-05-04 16:57] LABS: Basophils # (auto) 0.04 K/uL (0-0.2); Basophils % (auto) 0.5 %; Eosinophils # (auto) 0.16 K/uL (0-0.5); Eosinophils % (auto) 2.1 %; Immature Granulocytes # (auto) 0.05 K/uL (0.00-0.02); Immature Granulocytes % (auto) 0.7 %; Lymphocytes # (auto) 0.41 K/uL (1.2-3.4); Lymphocytes % (auto) 5.4 %; Monocytes # (auto) 0.37 K/uL (0.11-0.59); Monocytes % (auto) 4.9 %; Neutrophils % (auto) 86.4 %; Polychromasia 1+
[2021-05-04 16:59] LABS: Thyroid Stimulating Hormone 18.296 uIu/ml (0.300-4.500)
[2021-05-04 17:25] LABS: Appearance Urine Cloudy (Clear); Bacteria Urine Automated 4+ (Negative); Bilirubin Urine Negative (Negative); Blood Urine Negative (Negative); Color Urine Dark Yellow; Glucose Urine UA Negative (Negative); Ketones Urine Trace (Negative); Leukocyte Esterase Urine 1+ (Negative); Nitrite Urine Negative (Negative); Protein Urine Trace (Negative); RBC Urine Automated 0-4 /hpf (0-4); Specific Gravity Urine 1.019 (1.000-1.030); Urobilinogen Urine Negative (Negative); WBC Urine Automated >30 /hpf (0-5)
[2021-05-04] MEDS ORDERED: OPTIRAY 320 100ml IV ONE (17:45)
--- NOTE | 2021-05-04 17:45 | XRay Report ---
XR chest 1V portable CLINICAL HISTORY: weakness. Evaluate cardiopulmonary status COMPARISON STUDY: 04/21/2021 TECHNIQUE: 1 view of the chest FINDINGS: Single frontal view of the chest demonstrates the cardiomediastinal silhouette to be within normal li mits. There is a decreased inspiratory effort with elevation of the hemidiaphragms and crowding of th e bronchovascular markings at the lung bases and centrally. The lungs are clear of alveolar opacities . There is no evidence for pleural effusion. There is no evidence for vascular congestion. There is n o acute osseous pathology. IMPRESSION: There is a decreased inspiratory effort with otherwise no acute chest disease. ACT 112: Negative or not required by law. Electronically signed by: Speedy Caicedo M.D. 05/04/2021 5:43 PM
[2021-05-04 18:18] LABS: T4 Free Thyroxine 0.61 ng/dl (0.61-1.60)
[2021-05-04] MEDS ORDERED: cefTRIAXone SODIUM 2,000 MG/70 ML BAG IV STA (18:18)
--- NOTE | 2021-05-04 18:24 | CT Scan Report ---
CT abd pelvis IV con only CLINICAL HISTORY: n/v, LBP COMPARISON STUDY: 05/31/2019 CT DOSE: 273.41 mGy.cm TECHNIQUE: Standard CT of the Abdomen and Pelvis was performed with IV contrast. A dose lowering ramy hnique was utilized adhering to the principles of ALARA. Contrast Volume: Optiray 320, 95 ml. The patient did not receive oral contrast. FINDINGS: Lung base: The patient is status post aortic valve replacement. Pleural thickening is again seen in t he left lung base posteriorly. The lung bases are otherwise clear. Abdominal cavity: There is no evidence for abdominal mass, adenopathy or ascites. Liver: There is homogeneous attenuation of the liver parenchyma. There is no evidence for enhancing m ass lesion. Spleen: There is homogeneous attenuation of the splenic parenchyma. There is no enhancing mass lesion . Pancreas: There is homogeneous attenuation of the pancreatic parenchyma. There is no evidence for mas s lesion or peripancreatic fluid collection. Gall Bladder: The gallbladder is well distended with no evidence for intraluminal calculi, wall thick ening or pericholecystic edema. Adrenal glands: The adrenal glands are normal in size and attenuation. There is no evidence for enhan cing mass lesion. Kidneys: There is homogeneous attenuation of the renal parenchyma bilaterally. There are again bilate ral nonobstructing renal calculi. There is no evidence for hydronephrosis bilaterally. There is no ev idence for enhancing mass. Bowel: The bowel loops are normally placed within the abdomen and pelvis without evidence for dilatat ion or obstruction. There is no evidence for mass lesion. There is sigmoid diverticulosis without jaye dence for diverticulitis. There are no inflammatory changes present. There is no evidence for free ai r. There is no evidence for dilated appendix. Bladder: The bladder is within normal limits with no evidence for focal mass, calculus or diverticulu m. : There is no evidence for pelvic mass or adenopathy. There is no evidence for pelvic ascites. Vasculature: There is no evidence for aneurysmal dilatation of the abdominal aorta. Atherosclerotic c alcification is present. Osseous structures: There is no acute osseous pathology. The bones are osteopenic. Patient is status post internal fixation of lower lumbar spine. Old anterior wedge deformities present of the 11 and T1 2. No acute compression fracture. IMPRESSION: 1. Bilateral nonobstructing renal calculi no evidence for hydronephrosis is again seen. 2. Sigmoid diverticulosis without evidence for diverticulitis. 3. Degenerative changes, previous internal fixation and remote injury wedge deformities within the yaneli mbar spine. No acute abnormality. 4. No acute abnormality with additional nonacute findings as described above. ACT 112: Negative or not required by law. Electronically signed by: Speedy Caicedo M.D. 05/04/2021 6:23 PM
[2021-05-04] MEDS ORDERED: SODIUM CHLORIDE 0.9% 1000ML 500 ML IV ONE (18:28)
[2021-05-04 19:01] LABS: Prothrombin Time > 90.0 Seconds (9.0-12.0)
[2021-05-04 19:10] LABS: INR > 10.7 (0.9-1.1)
[2021-05-04] MEDS ORDERED: PHYTONADIONE 10 MG in DEXTROSE 5% 50 ML IV ONE (19:15)
--- NOTE | 2021-05-04 20:16 | CT Scan Report ---
CT head/brain wo con CLINICAL HISTORY: reported confusion; INR > 10 COMPARISON STUDY: 11/14/2019 CT DOSE: 638.56 mGycm TECHNIQUE: Standard CT of the Brain was performed without IV contrast. A dose lowering technique was utilized adhering to the principles of ALARA. FINDINGS: Extraaxial space: There is no evidence for subdural hematoma. There are no extra-axial fluid collecti ons. Ventricles and cisterns: The ventricles are mildly dilated bilaterally. There is no evidence for mid line shift or mass effect. Parenchyma: There is no subarachnoid or intraparenchymal hemorrhage. There is no evidence for an acu te infarct or cerebral edema. There is mild cerebral cortical atrophy and decreased attenuation in th e periventricular white matter representing remote small vessel disease. There are no gross mass lesi ons. Osseous structures: There is no evidence for an acute fracture. The visualized paranasal sinuses are clear. The mastoid air cells are clear bilaterally. Soft tissues: There is no evidence for focal soft tissue swelling. IMPRESSION: No acute intracerebral pathology. Cerebral cortical atrophy and remote small vessel disea se. ACT 112: Negative or not required by law. Electronically signed by: Speedy Caicedo M.D. 05/04/2021 8:15 PM
[2021-05-04] MEDS ORDERED: NITROGLYCERIN SL 0.4 MG/TAB TAB SL PRN (21:13)
[2021-05-04] MEDS ORDERED: NON-FORMULARY MEDICATION (Coenzyme Q10 10 mg Capsule) PO SCH (21:13)
[2021-05-04] MEDS ORDERED: hydroCHLOROthiazide 25 MG TAB PO PRN (21:13)
[2021-05-04] MEDS: GABAPENTIN 100 MG CAP PO SCH (21:46)
[2021-05-04] MEDS: METOPROLOL SUCC 50MG EXT REL TAB PO SCH (21:46)
[2021-05-04] MEDS: ACETAMINOPHEN 325 MG TAB PO PRN (21:47)
--- NOTE | 2021-05-04 22:02 | History and Physical Report ---
DATE OF ADMISSION: 05/04/2021. CHIEF COMPLAINT: Back pain and leg pain and found to have UTI. HISTORY OF PRESENT ILLNESS: This is an 80-year-old female with past medical history significant for hyperlipidemia, chronic rhinitis, obstructive sleep apnea, history of SVT, history of wide complex tachycardia, history of pulmonary embolism, history of CAD, history of aortic valve stenosis, status post TAVR on 04/15/2021, chronic kidney disease stage III, restless legs syndrome, chronic low back pain with right-sided sciatica, lymphedema in both lower extremities, lumbar radiculopathy, rheumatoid arthritis involving multiple sites, history of DVT. The patient lives with her and she states she ambulates with a walker. Today, she had a lot of pain in the back and legs. As per the son, she has a lot of pain today in the back and sciatica and in the right leg and that is the reason she was brought in here and she is also feeling very sick today. She had some fever, but no cough. The patient denies any headache. No blurred vision. Somewhat hard of hearing. No runny nose, no sore throat, no difficulty swallowing. No chest pain or shortness of breath. She had one episode of vomiting today. Currently, feeling okay. No abdominal pain, normal bowel and bladder movements, and patient states the leg pain is getting better now and she also says her edema in the lower extremities is getting worse in the last 2 weeks, son also says the same thing that her edema in the lower extremities got worse recently. ALLERGIES: BACLOFEN, PENICILLIN, SULFA ANTIBIOTICS. PAST MEDICAL HISTORY: As mentioned above. PAST SURGICAL HISTORY: Left knee arthroplasty, right knee arthroplasty, bilateral carpal tunnel surgery, colonoscopy, coronary angiography right and left, EGDs, lumbar hemilaminectomy, TAVR, total abdominal hysterectomy with removal of tubes. MEDICATIONS: The patient is on amlodipine 5 mg p.o. daily, atorvastatin 40 mg p.o. a.m., Plavix 75 mg p.o. a.m., Coenzyme Q10 10 mg p.o. a.m., ezetimbe 10 mg p.o. daily, folic acid 2 mg p.o. a.m., gabapentin 100 mg p.o. b.i.d., hydrochlorothiazide 25 mg p.o. daily p.r.n., leflunomide 20 mg p.o. a.m., methotrexate 10 mg p.o. on Wednesday, metoprolol succinate 50 mg p.o. b.i.d., multivitamin 1 tablet p.o. a.m., Protonix 40 mg p.o. daily, prednisone 5 mg p.o. a.m., ropinirole 3 mg p.o. at bedtime p.r.n., senna 8.6 mg p.o. daily, warfarin 2.5 mg p.o. 6 times a week and warfarin 1.25 mg p.o. one time a week. FAMILY HISTORY: Significant for brother has rheumatoid arthritis, sister has rheumatoid arthritis, father had CABG, maternal grandfather had COPD. SOCIAL HISTORY: , former smoker, quit in 1970, smoked 1 pack a day for 10 years. No alcohol use. No drug use. REVIEW OF SYSTEMS: As per HPI. Rest of the review of systems is negative. PHYSICAL EXAMINATION: GENERAL: The patient is of moderate built, not in acute distress. VITAL SIGNS: Temperature 37.3, pulse 88, respiratory rate 16, blood pressure 131/49, oxygen 95% on room air. HEENT: Pupils equal, round and reactive to light. Oral mucosa moist. NECK: No JVD, no neck masses. CARDIOVASCULAR: S1 and S2 heard. Regular rate and rhythm. No murmur, no gallop. RESPIRATORY SYSTEM: Normal AP diameter. No accessory muscle use. No wheezing, no crackles. ABDOMEN: Soft, bowel sounds present, nontender, no distention. CENTRAL NERVOUS SYSTEM: Cranial nerves II through XII are grossly intact, nonfocal. EXTREMITIES: Bilateral lower extremity +2 pedal edema present. No erythema seen. LABORATORY DATA: WBC 7.5, hemoglobin 9.8, hematocrit 29, platelets 116. PT greater than 90, INR greater than 10.7. Sodium 137, potassium 3.1, chloride 101, bicarbonate 25, BUN 24, creatinine 0.9, serum glucose 120, calcium 8.6, total bilirubin 1.5. AST 57, ALT 36, alkaline phosphatase 101. Troponin I 0.04. TSH is 18.2, free T4 of 0.6. Urinalysis, +1 leukocyte esterase, +4 bacteria. SARS-CoV-[address] of the head: No acute findings. Chest x-ray: No acute findings. CT of abdomen and pelvis with IV contrast only: Bilateral nonobstructing renal calculi, no evidence for hydronephrosis. Sigmoid diverticulosis without evidence of diverticulitis. Degenerative changes. No acute abnormality, but additional nonacute findings as described above. EKG: Sinus rhythm with first- degree AV block with PACs at a rate of 81, QTc of 469. ASSESSMENT AND PLAN: This is an 80-year-old female who presents with severe back pain and right-sided pain and found to have urinary tract infection. 1. Urinary tract infection: The patient seems to have chronic right-sided low back pain that could be exacerbated by urinary tract infection. We will start her on Rocephin. Follow the cultures. Follow the response. 2. Lower extremity edema: As per the Epic, she seems to have lymphedema of both lower extremities per patient in the last 2 weeks, her son also reiterated that her lower extremities got worse. She recently got transcatheter aortic valve replacement and recent echocardiogram on 04/16/2021, ejection fraction of 60%. We will consult cardiology in the a.m. for further recommendation. Repeat echocardiogram as per Cardiology. The patient seems to be taking hydrochlorothiazide p.r.n. 3. History of rheumatoid arthritis: Continue leflunomide and prednisone. Holding methotrexate while she is in the hospital. 4. Restless legs syndrome: On ropinirole p.r.n. 5. Hyperlipidemia: Continue Zetia and statin. 6. History of coronary artery disease: On Plavix, statin and beta danielito. 7. History of supraventricular tachycardia and history of wide complex tachycardia: On metoprolol succinate. 8. History of sleep apnea: On CPAP at bedtime. 9. History of deep venous thrombosis and pulmonary embolism: On Coumadin. INR is supratherapeutic at greater than 10.7. Got IV vitamin K in the Emergency Room. We will follow the PT/INR. 10. Anemia: At 9.8. Seems to be chronic, seems at baseline. 11. Thrombocytopenia: Seems to be chronic, platelets of 116. We will follow the laboratories. 12. Deep venous thrombosis prophylaxis: INR supratherapeutic. DISPOSITION: Closely monitor in the med-tele. PT/OT prior to discharge. Social service to help with discharge planning. Level 1, full code as per my discussion with the son. Job ID: [id number] SABINO
[2021-05-04] MEDS ORDERED: POTASSIUM CHLORIDE CRTAB 20 MEQ TABCR PO STA (23:07)
[2021-05-05] MEDS: ACETAMINOPHEN 325 MG TAB PO PRN ×4 (05:49→20:22)
[2021-05-05 06:00] LABS: Hemoglobin 7.9 g/dL (12.0-16.0); Mean Corpuscular Hemoglobin 35.1 pg (25-34); Mean Corpuscular Hgb Conc 32.9 g/dL (32-36); Mean Corpuscular Volume 106.7 fL (80-100); RDW Coefficient of Variation 19.5 % (11.5-14.5); RDW Standard Deviation 73.3 fL (36.4-46.3); Red Blood Count 2.25 M/uL (4.2-5.4); White Blood Count 5.59 K/uL (4.8-10.8)
[2021-05-05 06:14] LABS: INR 1.7 (0.9-1.1); Prothrombin Time 16.5 Seconds (9.0-12.0)
[2021-05-05 06:18] LABS: Mean Platelet Volume 11.9 fL (7.4-10.4); Platelet Count 97 K/uL (130-400)
--- NOTE | 2021-05-05 06:18 | Electrocardiogram Report ---
Test Reason : Blood Pressure : / mmHG Vent. Rate : 081 BPM Atrial Rate : 081 BPM P-R Int : 220 ms QRS Dur : 102 ms QT Int : 404 ms P-R-T Axes : 038 -40 086 degrees QTc Int : 469 ms Poor data quality, interpretation may be adversely affected Sinus rhythm with 1st degree A-V block with Premature atrial complexes Left axis deviation Left ventricular hypertrophy with repolarization abnormality Abnormal ECG When compared with ECG of 22-APR-2021 06:35, T wave inversion now evident in Lateral leads Confirmed by Guido Blue ([id number]) on 05/05/2021 6:17:41 AM Referred By: REFERRED SELF Confirmed By:Guido Blue
--- NOTE | 2021-05-05 06:19 | Electrocardiogram Report ---
Test Reason : Blood Pressure : / mmHG Vent. Rate : 089 BPM Atrial Rate : 089 BPM P-R Int : 236 ms QRS Dur : 110 ms QT Int : 390 ms P-R-T Axes : 048 -44 167 degrees QTc Int : 474 ms Poor data quality, interpretation may be adversely affected Sinus rhythm with 1st degree A-V block with Premature supraventricular complexes Left axis deviation Left ventricular hypertrophy with repolarization abnormality Abnormal ECG When compared with ECG of 04-MAY-2021 17:06, Inverted T waves have replaced nonspecific T wave abnormality in Inferior leads T wave inversion more evident in Lateral leads Confirmed by Guido Blue ([id number]) on 05/05/2021 6:18:56 AM Referred By: REFERRED SELF Confirmed By:Guido Blue
[2021-05-05 06:39] LABS: Calcium 7.7 mg/dl (8.5-10.1); Creatinine Clr Calc Pharmacy 39.3 ml/min; Est GFR (African American) 71.4 ml/min; Est GFR (Non-African American) 61.6 ml/min; Magnesium 1.9 mg/dl (1.7-2.4); Potassium 3.6 mmol/L (3.5-5.1)
[2021-05-05 06:54] LABS: Basophils # (auto) 0.01 K/uL (0-0.2); Basophils % (auto) 0.2 %; Eosinophils # (auto) 0.14 K/uL (0-0.5); Eosinophils % (auto) 2.5 %; Immature Granulocytes # (auto) 0.02 K/uL (0.00-0.02); Immature Granulocytes % (auto) 0.4 %; Lymphocytes # (auto) 0.62 K/uL (1.2-3.4); Lymphocytes % (auto) 11.1 %; Monocytes # (auto) 0.24 K/uL (0.11-0.59); Monocytes % (auto) 4.3 %; Neutrophils # (auto) 4.56 K/uL (1.4-6.5); Neutrophils % (auto) 81.5 %; Spherocytes Occasional
[2021-05-05] MEDS: METOPROLOL SUCC 50MG EXT REL TAB PO SCH ×2 (07:57→20:23)
[2021-05-05] MEDS: GABAPENTIN 100 MG CAP PO SCH ×2 (07:57→20:24)
[2021-05-05] MEDS: ATORVASTATIN 40 MG TAB PO SCH (07:58)
[2021-05-05] MEDS: LEFLUNOMIDE 10 MG TAB PO SCH (07:58)
[2021-05-05] MEDS: amLODIPine BESYLATE 5 MG TAB PO SCH (07:58)
[2021-05-05] MEDS: SENNA 8.6 MG TAB PO SCH ×2 (07:59→08:04)
[2021-05-05] MEDS: FOLIC ACID 1 MG TAB PO SCH (07:59)
[2021-05-05] MEDS: EZETIMIBE 10 MG TABLET PO SCH (07:59)
[2021-05-05] MEDS: CLOPIDOGREL BISULFATE 75 MG TAB PO SCH (07:59)
[2021-05-05] MEDS: predniSONE 5 MG TAB PO SCH (07:59)
[2021-05-05] MEDS: PANTOprazole 40 MG TAB PO SCH (07:59)
[2021-05-05] MEDS: MULTIVITAMIN TAB PO SCH (07:59)
[2021-05-05 09:05] LABS: Hematocrit (blood only) 23.7 % (37-47)
--- NOTE | 2021-05-05 10:42 | Cardiology Consultation ---
Date of Consultation May 05, 2021 Assessment & Plan (1) S/P TAVR (transcatheter aortic valve replacement): Recent post TAVR echo performed amount any 04/22/2021 with LVEF of 65 to 70%, no valvular obstruction noted, no significant perivalvular leak, stable moderate mitral regurgitation noted. Trivial sized anterior loculated pericardial effusion noted. On CT of the abdomen pelvis performed upon presentation, nonobstructing renal calculi noted, with trace circumferential pericardial fluid visualized per my interpretation of the CT in the partially visualized portion of the heart. Review progress notes, patient does have chronic lower extremity edema, although she states her ankles are swollen, they certainly are not severe. She is on hydrochlorothiazide at baseline, and given current issues with regards to possible UTI ( versus chronic colonization) favor holding off on both administration of IV fluids and diuretics at this time, and observing her. I do not think we need to repeat her echocardiogram at present. Although chronic urinary colonization is a possibility, given recent valve implantation, I think it is prudent to continue IV antibiotic therapy with Rocephin. (2) CAD (coronary artery disease): Patient without any angina present. Mild repolarization abnormalities noted in the precordial leads on EKG. Patient with history of recent invasive coronary angiography, [facility], 12/25/2020. She has a known chronic total occlusion of the ostial right coronary artery which was not engaged at that time, the prior LAD stents were painted at that time, with noted [id number] collaterals. I would speculate that her repolarization changes are suggestive of myocardial strain in setting of illness with regards to worsening back pain, possible infection. Continue chronic treatment clopidogrel. Monitor hemoglobin. (3) NSVT (nonsustained ventricular tachycardia): Four beat run of nonsustained VT noted 05/05/2021, 9:09 a.m., without recurrence. Potassium 3.6 today, supplement with 20 milliequivalents orally. Continue metoprolol. (4) Anemia: Most recent hemoglobin 8, relatively stable compared to recent measurements. (5) Acute UTI: As noted above. (6) Elevated INR: Patient on chronic Coumadin for history of pulmonary embolism. INR greater than 10 upon arrival, she received vitamin K, INR 1.7 today. Likely related to acute illness. Consider resuming within the next 24 to 48 h ours If hemoglobin stable. (7) Sciatic leg pain: Continue prednisone. History of Present Illness Attending Physician: Rashmi Da Silva MD History of Present Illness Nasima Tse is an 80 year old female seen in cardiology consultation per the request of Dr Liu for the evaluation of lower extremity edema with recent transcatheter aortic valve replacement procedure having been performed at [facility] on 04/15/2021 for findings of severe aortic stenosis. The patient had recently been seen in cardiology consultation at [facility] by Gabbi SEAMAN of our practice and Dr. Blanchard for findings of atypical chest discomfort as well as musculoskeletal/ neuropathic back and leg pain on 04/22/2021. Cardiac workup negative at that time. The patient is readmitted, with ongoing / worsening back and radiculopathy pain. With the patient describes as worsening lower extremity edema also observed and therefore Cardiology was consulted. Patient without complaints chest discomfort. Pain improved at present, however she is in bed. Telemetry reveals sinus rhythm in the 70s to 80s, there was a 4 beat run of nonsustained ventricular tachycardia observed this morning at 9:09 a.m.. Workup thus far is notable for g bhavin-negative bacilli in the urine for which she is now on IV Rocephin. Of note, previous urine cultures positive for E coli and Klebsiella back in 2018, and E coli in 2019 and 2020. Patient without any subjective urinary symptoms at present. Allergies Allergy/AdvReac Type Severity Reaction Status Date / Time baclofen Allergy Mild DIZZY Verified 05/04/21 17:39 Penicillins Allergy Mild RASH Verified 05/04/21 17:39 Sulfa (Sulfonamide Allergy Mild HEADACHE Verified 05/04/21 17:39 Antibiotics) Home Medications Medication Instructions Recorded Confirmed Type atorvastatin 40 mg tablet 40 mg PO QAM 07/01/18 05/04/21 History coenzyme Q10 10 mg capsule 10 mg PO QPM 07/01/18 05/04/21 History hydrochlorothiazide 25 mg tablet 25 mg PO DAILY PRN 07/01/18 05/04/21 History metoprolol succinate 50 mg 50 mg PO BID 07/01/18 05/04/21 History tablet,extended release 24 hr multivitamin 1 tab PO QAM 07/01/18 05/04/21 History prednisone 5 mg tablet 5 mg PO QAM 07/01/18 05/04/21 History folic acid 1 mg tablet 2 mg PO QAM 10/17/19 05/04/21 History leflunomide 10 mg tablet (Arava) 20 mg PO QAM 10/17/19 05/04/21 History methotrexate sodium 2.5 mg tablet 10 mg PO FR 11/14/19 05/04/21 History clopidogrel 75 mg tablet 75 mg PO QAM 05/09/20 05/04/21 History ropinirole 3 mg tablet 3 mg PO HS PRN 05/09/20 05/04/21 History amlodipine 5 mg tablet (Norvasc) 5 mg PO QAM #30 tab 05/10/20 05/04/21 Rx ezetimibe 10 mg tablet 10 mg PO DAILY 04/21/21 05/04/21 History gabapentin 100 mg capsule 100 mg PO BID 04/21/21 05/04/21 History pantoprazole 40 mg tablet,delayed 40 mg PO DAILY 04/21/21 05/04/21 History release sennosides 8.6 mg tablet (senna) 8.6 mg PO DAILY 04/21/21 05/04/21 History warfarin 2.5 mg tablet 2.5 mg PO 6XWK 04/21/21 05/04/21 History warfarin 2.5 mg tablet 1.25 mg PO WK 05/04/21 05/04/21 History Patient History Medical History CAD (coronary artery disease) Chronic anticoagulation CKD (chronic kidney disease) stage 3, GFR 30-59 ml/min Diverticular disease hx diverticulitis GERD (gastroesophageal reflux disease) History of DVT (deep vein thrombosis) a few years ago. remote h/o PE as well. on intermediate anticoagulation HLD (hyperlipidemia) HTN (hypertension) Lumbar radiculopathy Obstructive sleep apnea WEARS O2 AT 2L AT HS On home oxygen therapy 2L AT HS Paroxysmal SVT (supraventricular tachycardia) Rheumatoid arthritis RLS (restless legs syndrome) Severe aortic stenosis SVT (supraventricular tachycardia) Surgical History H/O colonoscopy H/O eye surgery LEFT History of carpal tunnel surgery RT/LEFT History of esophagogastroduodenoscopy (EGD) History of heart artery stent 03/18/2020-TYLER x 2 to LAD History of lumbar fusion History of tooth extraction History of total knee replacement RT/LEFT S/P CHANNING-BSO S/P TAVR (transcatheter aortic valve replacement) Family History Other Heart disease No family history of adverse response to anesthesia Rheumatoid arthritis Social History Smoking Status: Never smoker Tobacco Type: Cigarettes Second Hand Exposure: Yes (IN THE PAST); Hx Alcohol Use: No Hx Substance Use: No Preferred Language: Luxembourgish Communication Ability: Effective Manager Packaging Required: No Beliefs That Will Affect Care: None marital status: Current Living Situation: Spouse Current Living Situation Comment: Lives with How many Children do You have: 1 Feels Safe at Home: Yes Assistive Devices: Cane and Walker Review of Systems Review of Systems: All systems reviewed & are unremarkable except as noted in HPI & below Physical Exam Constitutional: Chronically ill in appearance without acute distress Respiratory: normal respiratory effort, lungs clear to auscultation Cardiovascular: Rate/Rhythm: regular rate and regular rhythm Extremities: + edema ( trace ankle and lower extremity edema) Neurologic: PERRL, EOMI, accommodation nl, no face palsy, no dysarthria Results & Data ([facility]) Vital Signs (Past 12 Hours) Vital Signs Temp Pulse Pulse Resp BP Pulse Ox 05/05/21 07:32 36.8 C 68 18 146/69 H 96 05/05/21 07:03 64 05/05/21 04:03 36.7 C 69 18 145/60 H 94 05/04/21 23:55 36.4 C L 73 18 148/69 H 95 05/04/21 23:32 71 Laboratory Results Cardiac Enzymes 05/04/21 05/04/21 Range/Units 15:45 15:45 AST 57 H (13-39) U/L Troponin I 0.04 (0-0.04) ng/ml Coagulation 05/04/21 05/05/21 Range/Units 15:45 05:29 PT > 90.0 H 16.5 H (9.0-12.0) Seconds CBC 05/04/21 05/05/21 05/05/21 Range/Units 15:45 05:29 08:55 WBC 7.53 5.59 (4.8-10.8) K/uL RBC 2.76 L 2.25 L (4.2-5.4) M/uL Hgb 9.8 L 7.9 L 8.0 L (12.0-16.0) g/dL Hct 29.0 L 24.0 L 23.7 L (37-47) % Plt Count 116 L 97 L (130-400) K/uL Neut # (Auto) 6.50 4.56 (1.4-6.5) K/uL Lymph # (Auto) 0.41 L 0.62 L (1.2-3.4) K/uL [place] # (Auto) 0.37 0.24 (0.11-0.59) K/uL Eos # (Auto) 0.16 0.14 (0-0.5) K/uL Baso # (Auto) 0.04 0.01 (0-0.2) K/uL Comprehensive Metabolic Panel 05/04/21 05/05/21 Range/Units 15:45 05:29 Sodium 137 139 (136-145) mmol/L Potassium 3.1 L 3.6 (3.5-5.1) mmol/L Chloride 101 108 H (98-107) mmol/L Carbon Dioxide 25 27 (21-32) mmol/L BUN 24 H 22 (6-23) mg/dl Creatinine 0.92 0.88 (0.6-1.2) mg/dl Glucose 120 H 78 (70-99(Fasting)) mg/dl Calcium 8.6 7.7 L (8.5-10.1) mg/dl AST 57 H (13-39) U/L ALT 36 (7-52) U/L Alkaline Phosphatase 101 (34-104) U/L Total Protein 6.3 (6.0-8.3) gm/dl Albumin 3.6 (3.4-5.0) gm/dl Intake and Output 05/04/21 05/05/21 05/05/21 22:59 06:59 14:59 Intake Total Output Total 101 Balance 62 / - Intake: IV Phytonadione 10 mg In Dextrose 51 / 51 5% 50 ml @ 102 mls/hr IV ONE ONE Rx#:[id number] Sodium Chloride 0.9% 1000ML 500 500 / 500 ml @ 999 mls/hr IV .Q31M ONE Rx#:[id number] cefTRIAXone SODIUM 2,000 mg In 70 / 70 70 ml @ 140 mls/hr IV NOW STA Rx#:[id number] Output: Urine 100 / 100 # Bowel Movements Other: Weight 63.5 kg 62.7 kg Weight Measurement Method Chair Scale Built in [facility] Diagnostic Findings EKG performed 05/04/2021 and reviewed independently reveals sinus rhythm 89 beats per minute, with first-degree AV block, LVH pattern with resultant repolarization abnormalities. - Compared to the previous tracing performed the day before as well as on 04/22/2020, the lateral repolarization abnormalities are new/more prominent. The first-degree AV block is a chronic finding. (1) Anemia Anemia type: unspecified type Qualified Code(s): D64.9 - Anemia, unspecified
[2021-05-05] MEDS ORDERED: POTASSIUM CHLORIDE CRTAB 20 MEQ TABCR PO STA (10:58)
--- NOTE | 2021-05-05 11:33 | Hospitalist Progress Note ---
Date of Service May 05, 2021 Assessment & Plan (1) Acute UTI: Plan: UA suggestive of UTI UCx growing GNR Review of previous labs show recurrent E coli UTI Continue ceftriaxone Follow up urine culture (2) Leg pain, bilateral: Plan: Bilateral leg pain Per patient, leg pain and back pain has been ongoing for some timme but has worsened within the past 2 -4 weeks Patient has had 2 knee replacement Leg edema is chronic per patient Abd CT show b/l nonobstructing renal calculi without hydronephrosis,Degenerative changes, previous internal fixation and remote injury wedge deformities within the lumbar spine. No acute abnormality. Degenerative joint disease may account for the pain Tylenol prn Lidocaine patch PT/OT eval (3) S/P TAVR (transcatheter aortic valve replacement): (4) Anemia: (5) Supratherapeutic INR: (6) CAD (coronary artery disease): Plan: Patient has h/o CAD and recent TAVR Patient is on plavix, ezetimibe and atorvastatin Cards recs noted INR was >10 on admission and got Vit K INR is currently 1.7 Patient has chronic anemia. Hb was 8.2 on 04/16/21 and 9.5 on 04/23/21 Hb was 9.8 on admission yesterday and 8 this morning No obvious bleeding Will hold off resuming warfarin today and monitor Hb Plan to resume warfarin by tomorrow TSH was 18uIu/ml but fT4 was 0.61ng/dl Needs TFT repeat outpatient Called son and updated him Admission and Anticipated Discharge Date Admission Date: May 04, 2021 Subjective Patient seen and examined Reports pain in both lower extremities, especially in thigh and knees and referred to hips Also reports chronic back pain Reported an episode of vomiting at home Denied any nausea, abd pain, diarrhea or constipation Denied any dysuria, frequency, urgency, hematuria She is not sure if she had fever at home Denied cough. Reports chronic leg swelling, unchanged Denied PND or orthopnea Physical Exam Constitutional: + well hydrated; no acute distress Eyes: PERRL, conjunctivae normal, anicteric sclerae ENMT: external ear and nose normal, oropharynx normal Respiratory: normal respiratory effort, lungs clear to auscultation Cardiovascular: Rate/Rhythm: regular rate and regular rhythm S1 S2 Gastrointestinal (Abdomen): normal bowel sounds, soft, nontender, no hepatosplenomegaly Musculoskeletal: Bilateral pedal edema Neurologic: PERRL, EOMI, accommodation nl, no face palsy, no dysarthria Psychiatric: A+Ox3, euthymic affect Results & Data Results & Data ([facility]) Vital Signs (Past 12 Hours) Vital Signs Temp Pulse Pulse Resp BP Pulse Ox 05/05/21 07:32 36.8 C 68 18 146/69 H 96 05/05/21 07:03 64 05/05/21 04:03 36.7 C 69 18 145/60 H 94 05/04/21 23:55 36.4 C L 73 18 148/69 H 95 Laboratory Results Abnormal lab results 05/04/21 05/04/21 05/04/21 Range/Units 15:45 15:45 15:45 RBC 2.76 L (4.2-5.4) M/uL Hgb 9.8 L (12.0-16.0) g/dL Hct 29.0 L (37-47) % MCV 105.1 H (80-100) fL MCH 35.5 H (25-34) pg RDW Std Deviation 73.4 H (36.4-46.3) fL RDW Coeff of Keila 19.6 H (11.5-14.5) % Plt Count 116 L (130-400) K/uL MPV 12.7 H (7.4-10.4) fL Lymph # (Auto) 0.41 L (1.2-3.4) K/uL Immature Gran # (Auto) 0.05 H (0.00-0.02) K/uL PT (9.0-12.0) Seconds INR (0.9-1.1) Potassium 3.1 L (3.5-5.1) mmol/L Chloride (98-107) mmol/L BUN 24 H (6-23) mg/dl BUN/Creatinine Ratio 26.1 H (10-20) Glucose 120 H (70-99(Fasting)) mg/dl Calcium (8.5-10.1) mg/dl Total Bilirubin 1.5 H (0.2-1.0) mg/dl AST 57 H (13-39) U/L TSH 18.296 H (0.300-4.500) uIu/ml Urine Appearance (Clear) Urine Protein (Negative) Urine Ketones (Negative) Ur Leukocyte Esterase (Negative) Urine WBC (Auto) (0-5) /hpf U Hyaline Cast (Auto) (0-5) /lpf U Epithel Cells (Auto) (0-5) /lpf Urine Bacteria (Auto) (Negative) 05/04/21 05/04/21 05/05/21 Range/Units 15:45 17:15 05:29 RBC (4.2-5.4) M/uL Hgb (12.0-16.0) g/dL Hct (37-47) % MCV (80-100) fL MCH (25-34) pg RDW Std Deviation (36.4-46.3) fL RDW Coeff of Keila (11.5-14.5) % Plt Count (130-400) K/uL MPV (7.4-10.4) fL Lymph # (Auto) (1.2-3.4) K/uL Immature Gran # (Auto) (0.00-0.02) K/uL PT > 90.0 H 16.5 H (9.0-12.0) Seconds INR > 10.7 H* 1.7 H (0.9-1.1) Potassium (3.5-5.1) mmol/L Chloride (98-107) mmol/L BUN (6-23) mg/dl BUN/Creatinine Ratio (10-20) Glucose (70-99(Fasting)) mg/dl Calcium (8.5-10.1) mg/dl Total Bilirubin (0.2-1.0) mg/dl AST (13-39) U/L TSH (0.300-4.500) uIu/ml Urine Appearance Cloudy A (Clear) Urine Protein Trace H (Negative) Urine Ketones Trace H (Negative) Ur Leukocyte Esterase 1+ H (Negative) Urine WBC (Auto) >30 H (0-5) /hpf U Hyaline Cast (Auto) 5-10 H (0-5) /lpf U Epithel Cells (Auto) 10-20 H (0-5) /lpf Urine Bacteria (Auto) 4+ H (Negative) 05/05/21 05/05/21 05/05/21 Range/Units 05:29 05:29 08:55 RBC 2.25 L (4.2-5.4) M/uL Hgb 7.9 L 8.0 L (12.0-16.0) g/dL Hct 24.0 L 23.7 L (37-47) % MCV 106.7 H (80-100) fL MCH 35.1 H (25-34) pg RDW Std Deviation 73.3 H (36.4-46.3) fL RDW Coeff of Keila 19.5 H (11.5-14.5) % Plt Count 97 L (130-400) K/uL MPV 11.9 H (7.4-10.4) fL Lymph # (Auto) 0.62 L (1.2-3.4) K/uL Immature Gran # (Auto) (0.00-0.02) K/uL PT (9.0-12.0) Seconds INR (0.9-1.1) Potassium (3.5-5.1) mmol/L Chloride 108 H (98-107) mmol/L BUN (6-23) mg/dl BUN/Creatinine Ratio 25.0 H (10-20) Glucose (70-99(Fasting)) mg/dl Calcium 7.7 L (8.5-10.1) mg/dl Total Bilirubin (0.2-1.0) mg/dl AST (13-39) U/L TSH (0.300-4.500) uIu/ml Urine Appearance (Clear) Urine Protein (Negative) Urine Ketones (Negative) Ur Leukocyte Esterase (Negative) Urine WBC (Auto) (0-5) /hpf U Hyaline Cast (Auto) (0-5) /lpf U Epithel Cells (Auto) (0-5) /lpf Urine Bacteria (Auto) (Negative) (1) Anemia Anemia type: unspecified type Qualified Code(s): D64.9 - Anemia, unspecified
[2021-05-05] MEDS: LIDOCAINE 5% 1 PATCH TD SCH (14:59)
[2021-05-05] MEDS: cefTRIAXone SODIUM 1,000 MG in DEXTROSE 5% 50 ML IV SCH (18:02)
[2021-05-05] MEDS: rOPINIRole HCL 1 MG TABLET PO PRN (22:29)
[2021-05-06] MEDS: ACETAMINOPHEN 325 MG TAB PO PRN ×2 (01:40→17:02)
[2021-05-06 05:55] LABS: Hematocrit (blood only) 25.6 % (37-47); Hemoglobin 8.5 g/dL (12.0-16.0); Mean Corpuscular Hemoglobin 35.3 pg (25-34); Mean Corpuscular Hgb Conc 33.2 g/dL (32-36); Mean Corpuscular Volume 106.2 fL (80-100); Mean Platelet Volume 11.5 fL (7.4-10.4); Platelet Count 105 K/uL (130-400); RDW Coefficient of Variation 19.4 % (11.5-14.5); Red Blood Count 2.41 M/uL (4.2-5.4); White Blood Count 7.18 K/uL (4.8-10.8)
[2021-05-06 05:59] LABS: INR 1.1 (0.9-1.1); Prothrombin Time 11.5 Seconds (9.0-12.0)
[2021-05-06 06:11] LABS: BUN Creatinine Ratio 19.5 (10-20); Calcium 7.9 mg/dl (8.5-10.1); Creatinine Clr Calc Pharmacy 42.9 ml/min; Est GFR (African American) 77.8 ml/min; Est GFR (Non-African American) 67.1 ml/min; Magnesium 1.8 mg/dl (1.7-2.4); Phosphorus 1.8 mg/dl (2.5-4.9); Potassium 3.8 mmol/L (3.5-5.1)
[2021-05-06] MEDS ORDERED: ONDANSETRON INJ 2 MG/ML 2 ML VIAL ONE (08:37)
[2021-05-06] MEDS: ONDANSETRON INJ 2 MG/ML 2 ML VIAL IV PRN ×2 (08:40→16:49)
[2021-05-06] MEDS ORDERED: POT PHOSPHATE MONOBASIC W/ SOD TAB PO ONE (10:03)
[2021-05-06] MEDS: LIDOCAINE 5% 1 PATCH TD SCH (10:16)
[2021-05-06] MEDS: METOPROLOL SUCC 50MG EXT REL TAB PO SCH ×2 (10:45→21:17)
[2021-05-06] MEDS: amLODIPine BESYLATE 5 MG TAB PO SCH (10:45)
--- NOTE | 2021-05-06 10:47 | Cardiology Progress Note ---
Date of Service May 06, 2021 Assessment & Plan (1) Leg pain, bilateral: Plan: Has h/o lumbar / sacral disc disease, past spine surgery. CT of lumbar spine performed in September was technically limited due to artifact from surgical hardware. (2) S/P TAVR (transcatheter aortic valve replacement): Plan: Stable findings on echo last month. Mild LE edema noted, however given poor oral intake , hold off on diuretics. (3) Hypokalemia: Plan: Improved to 3.8 today. No additional episodes of NSVT since am of 05/05/21. (4) CAD (coronary artery disease): Plan: H/o [employer]IST[employer] of RCA, TYLER to LAD. Continue clopidogrel. Admission and Anticipated Discharge Date Admission Date: May 04, 2021 Subjective Mrs Dedrick is seen in cardiology follow up. Telemetry revals SR in the 60s to 70s. She feels worse today, with nausea and is unable to keep anything down. She notes worsening leg pains. Her blood pressure had been well controlled yesterday, but elevated overnight and at this am. Physical Exam Constitutional: + ill appearing Respiratory: normal respiratory effort, lungs clear to auscultation Cardiovascular: RRR, no murmur, no edema Gastrointestinal (Abdomen): normal bowel sounds, soft, nontender, no hepatosplenomegaly Neurologic: conversant, no focal deficits Results & Data ([facility]) Vital Signs (Past 12 Hours) Vital Signs Temp Pulse Pulse Resp BP BP Pulse Ox 05/06/21 07:36 69 05/06/21 07:03 37.0 C 72 19 176/62 H 95 05/06/21 04:44 73 05/06/21 04:23 36.9 C 90 16 177/61 H 92 05/05/21 22:55 36.6 C 66 16 166/98 H 95 Laboratory Results Coagulation 05/06/21 Range/Units 05:32 PT 11.5 (9.0-12.0) Seconds CBC 05/06/21 Range/Units 05:32 WBC 7.18 (4.8-10.8) K/uL RBC 2.41 L (4.2-5.4) M/uL Hgb 8.5 L (12.0-16.0) g/dL Hct 25.6 L (37-47) % Plt Count 105 L (130-400) K/uL Comprehensive Metabolic Panel 05/06/21 Range/Units 05:32 Sodium 138 (136-145) mmol/L Potassium 3.8 (3.5-5.1) mmol/L Chloride 108 H (98-107) mmol/L Carbon Dioxide 27 (21-32) mmol/L BUN 16 (6-23) mg/dl Creatinine 0.82 (0.6-1.2) mg/dl Glucose 96 (70-99(Fasting)) mg/dl Calcium 7.9 L (8.5-10.1) mg/dl Intake and Output 05/05/21 05/06/21 05/06/21 22:59 06:59 14:59 Intake Total 50 / 390 Balance 50 / 15 Intake: IV 50 / 50 cefTRIAXone SODIUM 1,000 mg In 50 / 50 Dextrose 5% 50 ml @ 100 mls/hr IV Q24H [facility] Rx#:[id number] Other: # Unmeasured Voids 1 2 Weight 64.9 kg Weight Measurement Method Built in [facility]
--- NOTE | 2021-05-06 10:54 | Hospitalist Progress Note ---
Date of Service May 06, 2021 Assessment & Plan (1) Acute UTI: Plan: UA suggestive of UTI UCx growing E coli Continue ceftriaxone (2) Leg pain, bilateral: Plan: Bilateral leg pain Per patient, leg pain and back pain has been ongoing for some timme but has worsened within the past 2 -4 weeks Patient has had 2 knee replacement Leg edema is chronic per patient Abd CT show b/l nonobstructing renal calculi without hydronephrosis,Degenerative changes, previous internal fixation and remote injury wedge deformities within the lumbar spine. No acute abnormality. Degenerative joint disease may account for the chronic low back pain Tylenol prn. Tramadol prn Lidocaine patch PT/OT eval Will get Hip and knee XRs (3) S/P TAVR (transcatheter aortic valve replacement): (4) Anemia: (5) Supratherapeutic INR: (6) CAD (coronary artery disease): Plan: Patient has h/o CAD and recent TAVR Patient is on plavix, ezetimibe and atorvastatin Cards recs noted INR was >10 on admission and got Vit K INR is currently 1.1 Patient has chronic anemia. Hb was 8.2 on 04/16/21 and 9.5 on 04/23/21 Hb was 9.8 on admission and 8 yesterday. Stable at 8.5 today No obvious bleeding Resume home warfarin (was on 1.25mg on Mo and 2.5mg on other days). Based on presenting INR, need close monitoring as she may need adjustment prior to discharge and close follow up with Anticoagulation clinic TSH was 18uIu/ml but fT4 was 0.61ng/dl Needs TFT repeat outpatient Admission and Anticipated Discharge Date Admission Date: May 04, 2021 Subjective Patient seen and examined Had some nausea and vomiting this morning Got zofran. Patient currently reports nausea is improving Still reports low back pain and pain in both hips/knee worse with activity Denied any abd pain, diarrhea or constipation Denied any dysuria, frequency, urgency, hematuria Denied cough. Reports chronic leg swelling, unchanged Denied PND or orthopnea Physical Exam Constitutional: + well hydrated; no acute distress Eyes: PERRL, conjunctivae normal, anicteric sclerae ENMT: external ear and nose normal, oropharynx normal Respiratory: normal respiratory effort, lungs clear to auscultation Cardiovascular: Rate/Rhythm: regular rate and regular rhythm S1 S2 Gastrointestinal (Abdomen): normal bowel sounds, soft, nontender, no hepatosplenomegaly Musculoskeletal: No obvious fractures or skin breaks in LE Difficult to fully assess power as patient stated she stated she had too much pain at this time Neurologic: PERRL, EOMI, accommodation nl, no face palsy, no dysarthria Psychiatric: A+Ox3, euthymic affect Results & Data Results & Data ([facility]) Vital Signs (Past 12 Hours) Vital Signs Temp Pulse Pulse Resp BP BP Pulse Ox 05/06/21 07:36 69 05/06/21 07:03 37.0 C 72 19 176/62 H 95 05/06/21 04:44 73 05/06/21 04:23 36.9 C 90 16 177/61 H 92 05/05/21 22:55 36.6 C 66 16 166/98 H 95 Laboratory Results Abnormal lab results 05/06/21 05/06/21 Range/Units 05:32 05:32 RBC 2.41 L (4.2-5.4) M/uL Hgb 8.5 L (12.0-16.0) g/dL Hct 25.6 L (37-47) % MCV 106.2 H (80-100) fL MCH 35.3 H (25-34) pg RDW Std Deviation 73.0 H (36.4-46.3) fL RDW Coeff of Keila 19.4 H (11.5-14.5) % Plt Count 105 L (130-400) K/uL MPV 11.5 H (7.4-10.4) fL Chloride 108 H (98-107) mmol/L Calcium 7.9 L (8.5-10.1) mg/dl Phosphorus 1.8 L (2.5-4.9) mg/dl (1) Anemia Anemia type: unspecified type Qualified Code(s): D64.9 - Anemia, unspecified
[2021-05-06] MEDS: PANTOprazole 40 MG TAB PO SCH (12:30)
[2021-05-06] MEDS: predniSONE 5 MG TAB PO SCH (12:30)
[2021-05-06] MEDS: MULTIVITAMIN TAB PO SCH (12:30)
[2021-05-06] MEDS: CLOPIDOGREL BISULFATE 75 MG TAB PO SCH (12:30)
[2021-05-06] MEDS: LEFLUNOMIDE 10 MG TAB PO SCH (12:30)
[2021-05-06] MEDS: SENNA 8.6 MG TAB PO SCH (12:30)
[2021-05-06] MEDS: GABAPENTIN 100 MG CAP PO SCH ×2 (12:31→21:16)
[2021-05-06] MEDS: ATORVASTATIN 40 MG TAB PO SCH (12:31)
[2021-05-06] MEDS: FOLIC ACID 1 MG TAB PO SCH (12:31)
[2021-05-06] MEDS: EZETIMIBE 10 MG TABLET PO SCH (12:31)
[2021-05-06] MEDS: traMADol HCL 50 MG TABLET PO PRN (15:49)
[2021-05-06] MEDS: WARFARIN SOD 2.5 MG TAB PO SCH (16:32)
--- NOTE | 2021-05-06 16:39 | XRay Report ---
XR knee LT 3V CLINICAL HISTORY: Hip and knee pains TECHNIQUE: 3 views of the left knee were obtained. Comparison: None available at the time of this dictation. FINDINGS: Patient is status post total knee arthroplasty. The alignment is anatomic. No joint effusion is seen. No soft tissue abnormality is seen. IMPRESSION: No evidence of acute osseous injury. ACT 112: Negative or not required by law. Electronically signed by: Leland Wayne M.D. 05/06/2021 4:37 PM
--- NOTE | 2021-05-06 16:41 | XRay Report ---
XR knee RT 1 or 2V routine CLINICAL HISTORY: Hip and knee pains TECHNIQUE: 2 views of the right knee were obtained. Comparison: None available at the time of this dictation. FINDINGS: There is no evidence of an acute fracture. The alignment is anatomic. Patient is status post total kn ee arthroplasty. No joint effusion is seen. Vascular calcifications are noted. IMPRESSION: No evidence of acute osseous injury. ACT 112: Negative or not required by law. Electronically signed by: Leland Wayne M.D. 05/06/2021 4:39 PM
--- NOTE | 2021-05-06 16:48 | XRay Report ---
XR hips JESENIA 1v w pelvis CLINICAL HISTORY: Low back and hip pain. R/o fractures TECHNIQUE: 2 views of the bilateral hips and single frontal view of the pelvis were obtained. Comparison: None available at the time of this dictation. FINDINGS: Posterior lumbosacral fixation hardware seen. There is no evidence of an acute fracture. The alignmen t is anatomic. Degenerative changes are seen in the hip joint. Vascular calcifications are noted. IMPRESSION: Degenerative changes without evidence of acute abnormality. ACT 112: Negative or not required by law. Electronically signed by: Leland Wayne M.D. 05/06/2021 4:46 PM
[2021-05-06] MEDS: cefTRIAXone SODIUM 1,000 MG in DEXTROSE 5% 50 ML IV SCH (16:49)
[2021-05-07] MEDS: traMADol HCL 50 MG TABLET PO PRN ×3 (04:49→20:10)
[2021-05-07] MEDS ORDERED: HYDROmorphone INJ 0.5 MG/0.5 ML SYR IV STA (05:02)
[2021-05-07 07:20] LABS: INR 1.5 (0.9-1.1); Prothrombin Time 14.6 Seconds (9.0-12.0)
[2021-05-07] MEDS: METOPROLOL SUCC 50MG EXT REL TAB PO SCH ×2 (07:55→20:09)
[2021-05-07] MEDS: ATORVASTATIN 40 MG TAB PO SCH (07:56)
[2021-05-07] MEDS: LEFLUNOMIDE 10 MG TAB PO SCH ×2 (07:56→08:38)
[2021-05-07] MEDS: GABAPENTIN 100 MG CAP PO SCH ×2 (07:57→20:09)
[2021-05-07] MEDS: PANTOprazole 40 MG TAB PO SCH (07:57)
[2021-05-07] MEDS: CLOPIDOGREL BISULFATE 75 MG TAB PO SCH (07:58)
[2021-05-07] MEDS: SENNA 8.6 MG TAB PO SCH (07:58)
[2021-05-07] MEDS: EZETIMIBE 10 MG TABLET PO SCH (07:59)
[2021-05-07] MEDS: predniSONE 5 MG TAB PO SCH (07:59)
[2021-05-07] MEDS: FOLIC ACID 1 MG TAB PO SCH (08:00)
[2021-05-07] MEDS: MULTIVITAMIN TAB PO SCH (08:00)
[2021-05-07] MEDS: amLODIPine BESYLATE 5 MG TAB PO SCH (08:02)
[2021-05-07] MEDS: LIDOCAINE 5% 1 PATCH TD SCH (08:27)
--- NOTE | 2021-05-07 13:06 | Cardiology Progress Note ---
Date of Service May 07, 2021 Assessment & Plan (1) Leg pain, bilateral: Plan: Has h/o lumbar / sacral disc disease, past spine surgery. CT of lumbar spine performed in September was technically limited due to artifact from surgical hardware. Symptoms improved at present, with ongoing prednisone therapy, lidocaine patch , tramadol. (2) S/P TAVR (transcatheter aortic valve replacement): Plan: Stable findings on echo last month. Mild LE edema noted, however given poor oral intake , hold off on diuretics. (3) Hypokalemia: Plan: Improved to 3.8 05/06/2021 No additional episodes of NSVT since am of 05/05/21. (4) CAD (coronary artery disease): Plan: H/o FOAM CHARGER of RCA, TYLER to LAD. Continue clopidogrel. no symptoms suggestive angina today 05/07/2021. EKG performed 2021 reviewed, sinus rhythm at 74 beats per minute, first- degree AV block, previously noted repolarization changes in the inferior lateral leads have resolved. (5) Acute UTI: Plan: Sensitive E coli in urine, continue Rocephin. Plan: DVT prophylaxis, patient on Coumadin chronically, INR had been greater than 10 on presentation, for which she received pharmacologic reversal with vitamin K. She is now back on warfarin, INR trending up, 1.5 today, 05/07/2021. Admission and Anticipated Discharge Date Admission Date: May 04, 2021 Subjective Patient seen in follow-up today. Telemetry reveals stable sinus rhythm in 70s to 80s. Subjectively, patient states she feels much better with her back and leg pain improved. She has had a mild fever with temperature measurements of 37.7 Celsius at 5:02 a.m. and 37.8 Celsius at 10:37 a.m.. Physical Exam Constitutional: + ill appearing Respiratory: normal respiratory effort, lungs clear to auscultation Cardiovascular: RRR, no murmur, no edema Rate/Rhythm: regular rate and regular rhythm Extremities: + edema ( trace ankle and lower extremity edema) Gastrointestinal (Abdomen): normal bowel sounds, soft, nontender, no hepatosplenomegaly Neurologic: PERRL, EOMI, accommodation nl, no face palsy, no dysarthria Results & Data ([facility]) Vital Signs (Past 12 Hours) Vital Signs Temp Pulse Pulse Resp BP BP Pulse Ox 05/07/21 10:37 37.8 C H 81 16 142/61 H 92 05/07/21 08:11 36.4 C L 96 H 16 126/73 92 05/07/21 08:05 37.0 C 94 H 18 147/69 H 91 05/07/21 05:02 37.7 C H 76 18 181/52 H 92 05/07/21 03:20 78
[2021-05-07] MEDS: WARFARIN SOD 2.5 MG TAB PO SCH (15:50)
[2021-05-07] MEDS: cefTRIAXone SODIUM 1,000 MG in DEXTROSE 5% 50 ML IV SCH (18:08)
--- NOTE | 2021-05-07 19:47 | Hospitalist Progress Note ---
Date of Service May 07, 2021 Assessment & Plan (1) Acute UTI: Plan: Urine culture growing E. coli Continue Rocephin Transition to p.o. antibiotics as able (2) Leg pain, bilateral: Plan: Bilateral leg pain H/O ongoing leg pain and back pain which gradually worsened for past 2 -4 weeks H/O B/L knee replacement Imaging studies suggestive of degenerative changes with no acute abnormality Continue PT OT Pain control Check Vitamin D levels (3) S/P TAVR (transcatheter aortic valve replacement): (4) Anemia: (5) Supratherapeutic INR: (6) CAD (coronary artery disease): Plan: H/O CAD and recent TAVR on plavix, ezetimibe and atorvastatin Appreciate Cardiology Input Presented with supratherapeutic INR Received vitamin K Coumadin resumed Monitor INR Chronic anemia No obvious bleeding Monitor CBC Abnormal thyroid function test Elevated TSH normal free T4 Advised to repeat thyroid function test as outpatient Code Status Full code DVT prophylaxis Warfarin Disposition PT OT prior to discharge Admission and Anticipated Discharge Date Admission Date: May 04, 2021 Subjective Patient is seen and examined at bedside States knee/leg pain is much better today Back pain improving as well No new complaints Denies any chest pain, shortness of breath, dizziness, nausea, abdominal pain Review of Systems Review of Systems: All systems reviewed & are unremarkable except as noted in Subjective Physical Exam Physical Exam: Physical Exam: Vitals signs as noted above General Appearance:Moderately built and nourished, no apparent distress Head: normocephalic, Atraumatic Eyes: normal inspection, EOMI Neck: supple, Trachea midline Respiratory/Chest: Normal breath sounds, CTA, No accessory muscle use Cardiovascular: S1, S2, No murmur Abdomen/GI:Soft, Non tender, Bowel sounds present Extremities/Musculoskeletal:normal inspection, Trace edema Neurologic/Psych:AAOX3, grossly no focal neurological deficits Skin: normal color, warm Results & Data Results & Data ([facility]) Vital Signs (Past 12 Hours) Vital Signs Temp Pulse Pulse Resp BP BP Pulse Ox 05/07/21 19:26 37.4 C 89 18 142/60 H 95 05/07/21 16:44 88 05/07/21 16:40 37.6 C H 86 18 139/66 95 05/07/21 10:37 37.8 C H 81 16 142/61 H 92 05/07/21 08:11 36.4 C L 96 H 16 126/73 92 05/07/21 08:05 37.0 C 94 H 18 147/69 H 91 (1) Anemia Anemia type: unspecified type Qualified Code(s): D64.9 - Anemia, unspecified
--- NOTE | 2021-05-07 21:28 | Electrocardiogram Report ---
Test Reason : Blood Pressure : / mmHG Vent. Rate : 074 BPM Atrial Rate : 074 BPM P-R Int : 208 ms QRS Dur : 098 ms QT Int : 392 ms P-R-T Axes : 034 -43 057 degrees QTc Int : 435 ms Sinus rhythm with Premature supraventricular complexes Left axis deviation Left ventricular hypertrophy with repolarization abnormality Abnormal ECG When compared with ECG of 04-MAY-2021 18:04, ST no longer depressed in Inferior leads T wave inversion no longer evident in Inferior leads T wave inversion no longer evident in Lateral leads Confirmed by Guido Blue ([id number] on 05/07/2021 9:27:51 PM Referred By: REFERRED SELF Confirmed By:Guido Blue
[2021-05-08] MEDS: traMADol HCL 50 MG TABLET PO PRN ×2 (01:32→07:21)
[2021-05-08 06:47] LABS: Hematocrit (blood only) 23.9 % (37-47); Mean Corpuscular Hemoglobin 35.7 pg (25-34); Mean Corpuscular Hgb Conc 33.5 g/dL (32-36); Mean Corpuscular Volume 106.7 fL (80-100); RDW Coefficient of Variation 19.5 % (11.5-14.5); RDW Standard Deviation 73.3 fL (36.4-46.3); Red Blood Count 2.24 M/uL (4.2-5.4); White Blood Count 7.66 K/uL (4.8-10.8)
[2021-05-08 07:09] LABS: INR 2.6 (0.9-1.1); Prothrombin Time 24.5 Seconds (9.0-12.0)
[2021-05-08 07:14] LABS: Mean Platelet Volume 11.3 fL (7.4-10.4); Platelet Count 69 K/uL (130-400); Platelet Estimate Decreased (Normal)
[2021-05-08] MEDS: CLOPIDOGREL BISULFATE 75 MG TAB PO SCH (08:23)
[2021-05-08] MEDS: EZETIMIBE 10 MG TABLET PO SCH (08:23)
[2021-05-08] MEDS: amLODIPine BESYLATE 5 MG TAB PO SCH (08:24)
[2021-05-08] MEDS: FOLIC ACID 1 MG TAB PO SCH (08:24)
[2021-05-08] MEDS: predniSONE 5 MG TAB PO SCH (08:24)
[2021-05-08] MEDS: MULTIVITAMIN TAB PO SCH (08:25)
[2021-05-08] MEDS: ATORVASTATIN 40 MG TAB PO SCH (08:25)
[2021-05-08] MEDS: LEFLUNOMIDE 10 MG TAB PO SCH (08:25)
[2021-05-08] MEDS: GABAPENTIN 100 MG CAP PO SCH ×2 (08:26→19:55)
[2021-05-08] MEDS: METOPROLOL SUCC 50MG EXT REL TAB PO SCH ×2 (08:26→19:55)
[2021-05-08] MEDS: LIDOCAINE 5% 1 PATCH TD SCH (08:26)
[2021-05-08] MEDS: PANTOprazole 40 MG TAB PO SCH (08:26)
[2021-05-08] MEDS: SENNA 8.6 MG TAB PO SCH (08:27)
[2021-05-08] MEDS ORDERED: SODIUM PHOSPHATE 3 MMOL/1 ML INFUSION IV ONE (08:43)
[2021-05-08] MEDS ORDERED: SODIUM PHOSPHATE 21 MMOL in DEXTROSE 5% 500 ML IV ONE (09:00)
--- NOTE | 2021-05-08 12:42 | Cardiology Progress Note ---
Date of Service May 08, 2021 Assessment & Plan (1) Leg pain, bilateral: Plan: Has h/o lumbar / sacral disc disease, past spine surgery. CT of lumbar spine performed in September was technically limited due to artifact from surgical hardware. On 05/07/2021, her symptoms in. Improved with addition of Lidoderm patch and tramadol. Now with worsening pain and worsening mental status. Hospitalist service to follow up. (2) S/P TAVR (transcatheter aortic valve replacement): Plan: Stable findings on echo last month. Mild LE edema noted, however given poor oral intake , hold off on diuretics. (3) Hypokalemia: Plan: Improved to 3.8 05/06/2021 No additional episodes of NSVT since am of 05/05/21. 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 Continue clopidogrel. no symptoms suggestive angina today 05/07/2021. EKG performed 2021 reviewed, sinus rhythm at 74 beats per minute, first- degree AV block, previously noted repolarization changes in the inferior lateral leads have resolved. (5) Acute UTI: Plan: Sensitive E coli in urine, continue Rocephin.Agree with blood cultures given worsening clinical status. Plan: DVT prophylaxis, patient on Coumadin chronically, INR had been greater than 10 on presentation, for which she received pharmacologic reversal with vitamin K. She is now back on warfarin, INR trending up, 2.6 05/08/21. Admission and Anticipated Discharge Date Admission Date: May 04, 2021 Subjective The patient seen in follow-up today. Telemetry reveals normal sinus rhythm. Patient with worsening back pain again today, and acute mental status change noted at the time of my assessment. She had to be assisted out of the bathroom, and was confused and not her typical conversant self. Physical Exam Constitutional: + ill appearing Respiratory: normal respiratory effort, lungs clear to auscultation Cardiovascular: RRR, no murmur, no edema Rate/Rhythm: regular rate and regular rhythm Extremities: + edema ( trace ankle and lower extremity edema) Gastrointestinal (Abdomen): normal bowel sounds, soft, nontender, no hepatosplenomegaly Neurologic: PERRL, EOMI, accommodation nl, no face palsy, no dysarthria Results & Data ([facility]) Vital Signs (Past 12 Hours) Vital Signs Temp Pulse Resp BP BP Pulse Ox 05/08/21 11:30 37.9 C H 86 18 161/63 H 96 05/08/21 09:54 85 22 164/70 H 94 05/08/21 09:47 37.5 C 90 19 183/67 H 92 05/08/21 08:03 36.5 C 83 16 178/66 H 92 05/08/21 04:26 37.4 C 81 16 150/68 H 92 Laboratory Results Coagulation INR 2.6 05/08/21 Range/Units 06:05 PT 24.5 H (9.0-12.0) Seconds CBC 05/08/21 Range/Units 06:05 WBC 7.66 (4.8-10.8) K/uL RBC 2.24 L (4.2-5.4) M/uL Hgb 8.0 L (12.0-16.0) g/dL Hct 23.9 L (37-47) % Plt Count 69 L (130-400) K/uL Intake and Output 05/07/21 05/08/21 05/08/21 22:59 06:59 14:59 Intake Total 50 / 250 Balance 50 / 250 Intake: IV 50 / 50 cefTRIAXone SODIUM 1,000 mg In 50 / 50 Dextrose 5% 50 ml @ 100 mls/hr IV Q24H [facility] Rx#:[id number] Other: # Unmeasured Voids 1 Weight 60.9 kg Weight Measurement Method Built in [facility]
--- NOTE | 2021-05-08 15:05 | XRay Report ---
KUB CLINICAL HISTORY: Abdominal pain. Nausea. COMPARISON STUDY: CT of the abdomen and pelvis May 04, 2021. FINDINGS: Postoperative findings within the lumbosacral spine are incidentally noted. The bowel gas p attern is normal. There is no evidence for a bowel obstruction. Amount of stool is within normal limi ts. Extensive vascular calcification is incidentally noted. IMPRESSION: No evidence for a bowel obstruction. ACT 112: Negative or not required by law. Electronically signed by: Christian Lora M.D. 05/08/2021 3:04 PM
--- NOTE | 2021-05-08 15:09 | XRay Report ---
XR chest 1V portable CLINICAL HISTORY: Hypoxia, Fever. COMPARISON STUDY: 05/04/2021 TECHNIQUE: 1 view of the chest FINDINGS: Single frontal view of the chest demonstrates the cardiomediastinal silhouette to be within normal li mits. The lungs are clear of alveolar opacities. There is no evidence for pleural effusion. There is no evidence for vascular congestion. There is no acute osseous pathology. IMPRESSION: No acute cardiopulmonary disease. ACT 112: Negative or not required by law. Electronically signed by: Speedy Caicedo M.D. 05/08/2021 3:08 PM
--- NOTE | 2021-05-08 15:12 | XRay Report ---
XR lumbar spine 2-3V CLINICAL HISTORY: Back Pain TECHNIQUE: 5 views of the lumbar spine were obtained. Comparison: Comparison is made to spine radiographs 10/15/2010 FINDINGS: Posterior fixation hardware seen. The alignment is anatomic. Degenerative changes are seen in the lum bar spine. Vascular calcifications are noted. IMPRESSION: Degenerative changes and posterior fixation hardware without evidence of acute abnormality. ACT 112: Negative or not required by law. Electronically signed by: Leland Wayne M.D. 05/08/2021 3:10 PM
[2021-05-08] MEDS: ACETAMINOPHEN 325 MG TAB PO PRN ×2 (15:33→19:52)
[2021-05-08] MEDS: WARFARIN SOD 2.5 MG TAB PO SCH (15:38)
[2021-05-08] MEDS: cefTRIAXone SODIUM 1,000 MG in DEXTROSE 5% 50 ML IV SCH (17:18)
--- NOTE | 2021-05-08 17:51 | Hospitalist Progress Note ---
Date of Service May 08, 2021 Assessment & Plan (1) Acute UTI: Plan: Urine culture growing E. coli Continue Rocephin for now Follow up blood cultures Normal procalcitonin Presyncopal Episode Likely vasovagal given episode occurring after bowel movement No loss of consciousness Fall Precautions PT/OT Transient Confusion Likely acute metabolic encephalopathy Will obtain blood cultures Avoid sedative medications Consider CT head if required Reorient frequently Hypophosphatemia Replace electrolytes as needed Hypoxia unclear etiology CXR:No acute cardiopulmonary disease. INR in therapeutic range Wean off of supplemental oxygen as able (2) Leg pain, bilateral: Plan: Bilateral leg pain H/O ongoing leg pain and back pain which gradually worsened for past 2 -4 weeks H/O B/L knee replacement Imaging studies suggestive of degenerative changes with no acute abnormality Continue PT OT Pain control (3) S/P TAVR (transcatheter aortic valve replacement): (4) Anemia: (5) Supratherapeutic INR: (6) CAD (coronary artery disease): Plan: H/O CAD and recent TAVR on plavix, ezetimibe and atorvastatin Appreciate Cardiology Input Presented with supratherapeutic INR Received vitamin K Coumadin resumed--adjust as needed Monitor INR 2.6 today Chronic anemia No obvious bleeding Monitor CBC Hb 8.0 today Abnormal thyroid function test Elevated TSH normal free T4 Advised to repeat thyroid function test as outpatient Code Status Full code DVT prophylaxis Warfarin Disposition PT OT prior to discharge Admission and Anticipated Discharge Date Admission Date: May 04, 2021 Subjective Patient is seen and examined at bedside Had a presyncopal episode after having bowel movement earlier today Febrile this morning States having back pain and knee pain Confused intermittently Had a small episode of vomiting this morning as well Denies any chest pain, shortness of breath Review of Systems Review of Systems: All systems reviewed & are unremarkable except as noted in Subjective Physical Exam Physical Exam: Physical Exam: Vitals signs as noted above General Appearance:Moderately built and nourished, no apparent distress Head: normocephalic, Atraumatic Eyes: normal inspection, EOMI Neck: supple, Trachea midline Respiratory/Chest: Normal breath sounds, CTA, No accessory muscle use Cardiovascular: S1, S2, No murmur Abdomen/GI:Soft, Non tender, Bowel sounds present Extremities/Musculoskeletal:normal inspection, Trace edema Neurologic/Psych:AAOX3, grossly no focal neurological deficits Skin: normal color, warm Results & Data Results & Data ([facility]) Vital Signs (Past 12 Hours) Vital Signs Temp Pulse Pulse Resp BP Pulse Ox 05/08/21 15:24 77 05/08/21 15:19 76 05/08/21 15:06 37.4 C 71 17 118/59 L 95 05/08/21 11:30 37.9 C H 86 18 161/63 H 96 05/08/21 09:54 85 22 164/70 H 94 05/08/21 09:47 37.5 C 90 19 183/67 H 92 05/08/21 08:03 36.5 C 83 16 178/66 H 92 Laboratory Results Short CBC 05/08/21 Range/Units 06:05 WBC 7.66 (4.8-10.8) K/uL Hgb 8.0 L (12.0-16.0) g/dL Hct 23.9 L (37-47) % Plt Count 69 L (130-400) K/uL (1) Anemia Anemia type: unspecified type Qualified Code(s): D64.9 - Anemia, unspecified
[2021-05-09] MEDS: ACETAMINOPHEN 325 MG TAB PO PRN ×4 (00:11→20:57)
[2021-05-09] MEDS: rOPINIRole HCL 1 MG TABLET PO PRN ×2 (00:13→22:53)
[2021-05-09] MEDS: PANTOprazole 40 MG TAB PO SCH (08:26)
[2021-05-09] MEDS: FOLIC ACID 1 MG TAB PO SCH (08:26)
[2021-05-09] MEDS: SENNA 8.6 MG TAB PO SCH (08:26)
[2021-05-09] MEDS: ATORVASTATIN 40 MG TAB PO SCH (08:26)
[2021-05-09] MEDS: CLOPIDOGREL BISULFATE 75 MG TAB PO SCH (08:26)
[2021-05-09] MEDS: LEFLUNOMIDE 10 MG TAB PO SCH (08:26)
[2021-05-09] MEDS: METOPROLOL SUCC 50MG EXT REL TAB PO SCH ×2 (08:26→20:59)
[2021-05-09] MEDS: GABAPENTIN 100 MG CAP PO SCH ×2 (08:26→20:59)
[2021-05-09] MEDS: amLODIPine BESYLATE 5 MG TAB PO SCH (08:26)
[2021-05-09] MEDS: MULTIVITAMIN TAB PO SCH (08:26)
[2021-05-09] MEDS: predniSONE 5 MG TAB PO SCH (08:26)
[2021-05-09] MEDS: EZETIMIBE 10 MG TABLET PO SCH (08:26)
[2021-05-09] MEDS: LIDOCAINE 5% 1 PATCH TD SCH (08:31)
[2021-05-09 09:11] LABS: Hematocrit (blood only) 24.2 % (37-47)
[2021-05-09 09:38] LABS: INR 4.2 (0.9-1.1); Prothrombin Time 38.2 Seconds (9.0-12.0)
[2021-05-09 11:08] LABS: BUN Creatinine Ratio 18.7 (10-20); Calcium 7.6 mg/dl (8.5-10.1); Creatinine Clr Calc Pharmacy 45.2 ml/min; Est GFR (African American) 86.6 ml/min; Est GFR (Non-African American) 74.8 ml/min; Potassium 2.9 mmol/L (3.5-5.1)
--- NOTE | 2021-05-09 12:48 | Cardiology Progress Note ---
Date of Service May 09, 2021 Assessment & Plan (1) S/P TAVR (transcatheter aortic valve replacement): Plan: stable findings on recent echocardiogram status post recent TAVR. No congestive heart failure. Continue clopidogrel. (2) CAD (coronary artery disease): Plan: Stable chronic coronary heart disease. Continue clopidogrel. (3) Supratherapeutic INR: Plan: Patient on Coumadin due to history of past venous thromboembolic event. Coumadin on hold for INR of 4.2. (4) Leg pain, bilateral: Plan: Continue Lidoderm patch, tramadol on hold. Admission and Anticipated Discharge Date Admission Date: May 04, 2021 Subjective patient seen in follow-up of her history of transcatheter aortic valve replacement. Her back and leg pain is worse again, but her mental status is better today. Physical Exam Constitutional: no acute distress Respiratory: normal respiratory effort, lungs clear to auscultation Cardiovascular: RRR, no murmur, no edema Gastrointestinal (Abdomen): normal bowel sounds, soft, nontender, no hepatosplenomegaly Neurologic: Conversant, follows commands, moves all 4 extremities Results & Data ([facility]) Vital Signs (Past 12 Hours) Vital Signs Temp Pulse Pulse Resp BP BP Pulse Ox 05/09/21 11:47 37.2 C 74 18 145/73 H 90 05/09/21 08:15 36.7 C 70 18 170/66 H 97 05/09/21 08:00 57 L 05/09/21 03:33 36.6 C 61 18 151/74 H 96 05/09/21 02:44 60 Laboratory Results Coagulation 05/09/21 Range/Units 08:56 PT 38.2 H (9.0-12.0) Seconds CBC 05/09/21 Range/Units 08:56 Hgb 8.0 L (12.0-16.0) g/dL Hct 24.2 L (37-47) % Comprehensive Metabolic Panel 05/09/21 Range/Units 10:30 Sodium 132 L (136-145) mmol/L Potassium 2.9 L (3.5-5.1) mmol/L Chloride 102 (98-107) mmol/L Carbon Dioxide 24 (21-32) mmol/L BUN 14 (6-23) mg/dl Creatinine 0.75 (0.6-1.2) mg/dl Glucose 100 H (70-99(Fasting)) mg/dl Calcium 7.6 L (8.5-10.1) mg/dl Intake and Output 05/08/21 05/09/21 05/09/21 22:59 06:59 14:59 Intake Total 717 / 1257 100 / 1257 Output Total 1 / 2 Balance 716 / 1255 100 / 1255 Intake: IV 557 / 557 Sodium Phosphate 21 mmol In 507 / 507 Dextrose 5% 500 ml @ 88 mls/hr IV [facility] Rx#:[id number] cefTRIAXone SODIUM 1,000 mg In 50 / 50 Dextrose 5% 50 ml @ 100 mls/hr IV Q24H [facility] Rx#:[id number] Oral 160 / 700 100 / 700 Output: # Bowel Movements 1 / 2 Other: # Unmeasured Voids 1 1 Weight 60.4 kg Weight Measurement Method Built in [facility]
[2021-05-09] MEDS: POT PHOSPHATE MONOBASIC W/ SOD TAB PO SCH ×3 (13:56→20:59)
[2021-05-09] MEDS ORDERED: POTASSIUM CHLORIDE CRTAB 20 MEQ TABCR PO SCH ×2 (14:30→19:00)
[2021-05-09] MEDS: POTASSIUM CHLORIDE / WTR 10 MEQ/100 ML PLCT IV SCH ×2 (14:58→17:26)
[2021-05-09] MEDS: cefTRIAXone SODIUM 1,000 MG in DEXTROSE 5% 50 ML IV SCH (18:45)
--- NOTE | 2021-05-09 19:00 | Hospitalist Progress Note ---
Date of Service May 09, 2021 Assessment & Plan (1) Acute UTI: Plan: Urine culture growing E. coli Continue Rocephin for now Normal procalcitonin Blood cultures negative to date Afebrile today Presyncopal Episode Likely vasovagal given episode occurring after bowel movement No loss of consciousness Fall Precautions PT/OT Transient Confusion Likely acute metabolic encephalopathy blood cultures negative to date Avoid sedative medications Consider CT head if required Reorient frequently Mental status back to baseline Hypophosphatemia Hypokalemia Replace electrolytes as needed Hypoxia unclear etiology CXR:No acute cardiopulmonary disease. Weaned off of supplemental oxygen (2) Leg pain, bilateral: Plan: Bilateral leg pain H/O ongoing leg pain and back pain which gradually worsened for past 2 -4 weeks H/O B/L knee replacement Imaging studies suggestive of degenerative changes with no acute abnormality Continue PT OT Pain control (3) S/P TAVR (transcatheter aortic valve replacement): (4) Anemia: (5) Supratherapeutic INR: (6) CAD (coronary artery disease): Plan: H/O CAD and recent TAVR on plavix, ezetimibe and atorvastatin Appreciate Cardiology Input Presented with supratherapeutic INR Received vitamin K Monitor INR 4.2 today Hold Coumadin today Chronic anemia No obvious bleeding Monitor CBC Hb 8.0 today Abnormal thyroid function test Elevated TSH normal free T4 Advised to repeat thyroid function test as outpatient Code Status Full code DVT prophylaxis Warfarin-held Disposition PT OT prior to discharge Admission and Anticipated Discharge Date Admission Date: May 04, 2021 Subjective Patient is seen and examined at bedside States having back, leg pain which is worse today No other complaints Nausea, vomiting resolved Denies any chest pain, shortness of breath, dizziness, abdominal pain Review of Systems Review of Systems: All systems reviewed & are unremarkable except as noted in Subjective Physical Exam Physical Exam: Physical Exam: Vitals signs as noted above General Appearance:Moderately built and nourished, no apparent distress Head: normocephalic, Atraumatic Eyes: normal inspection, EOMI Neck: supple, Trachea midline Respiratory/Chest: Normal breath sounds, CTA, No accessory muscle use Cardiovascular: S1, S2, No murmur Abdomen/GI:Soft, Non tender, Bowel sounds present Extremities/Musculoskeletal:normal inspection, Trace edema Neurologic/Psych:AAOX3, grossly no focal neurological deficits Skin: normal color, warm Results & Data Results & Data ([place]) Vital Signs (Past 12 Hours) Vital Signs Temp Pulse Pulse Resp BP BP Pulse Ox 05/09/21 15:37 37.2 C 74 17 127/60 94 05/09/21 15:07 70 05/09/21 11:47 37.2 C 74 18 145/73 H 90 05/09/21 08:15 36.7 C 70 18 170/66 H 97 05/09/21 08:00 57 L Laboratory Results Short CBC 05/09/21 Range/Units 08:56 Hgb 8.0 L (12.0-16.0) g/dL Hct 24.2 L (37-47) % BMP 05/09/21 10:30 Sodium 132 L Potassium 2.9 L Chloride 102 Carbon Dioxide 24 BUN 14 Creatinine 0.75 Glucose 100 H Calcium 7.6 L (1) Anemia Anemia type: unspecified type Qualified Code(s): D64.9 - Anemia, unspecified
[2021-05-10] MEDS: ONDANSETRON INJ 2 MG/ML 2 ML VIAL IV PRN (02:54)
[2021-05-10] MEDS: METOPROLOL SUCC 50MG EXT REL TAB PO SCH ×2 (04:39→20:21)
[2021-05-10] MEDS: ACETAMINOPHEN 325 MG TAB PO PRN ×2 (04:39→23:13)
[2021-05-10 06:47] LABS: Hematocrit (blood only) 23.4 % (37-47); Hemoglobin 7.8 g/dL (12.0-16.0); Mean Corpuscular Hemoglobin 35.8 pg (25-34); Mean Corpuscular Hgb Conc 33.3 g/dL (32-36); Mean Corpuscular Volume 107.3 fL (80-100); RDW Standard Deviation 76.8 fL (36.4-46.3); Red Blood Count 2.18 M/uL (4.2-5.4); White Blood Count 6.48 K/uL (4.8-10.8)
[2021-05-10 06:57] LABS: Mean Platelet Volume 11.3 fL (7.4-10.4); Platelet Count 69 K/uL (130-400)
[2021-05-10 07:00] LABS: Prothrombin Time 57.3 Seconds (9.0-12.0)
[2021-05-10 07:03] LABS: BUN Creatinine Ratio 16.2 (10-20); Calcium 7.7 mg/dl (8.5-10.1); Est GFR (African American) 88.1 ml/min; Potassium 4.6 mmol/L (3.5-5.1)
[2021-05-10 07:06] LABS: INR 6.6 (0.9-1.1)
[2021-05-10] MEDS: PANTOprazole 40 MG TAB PO SCH (08:46)
[2021-05-10] MEDS: predniSONE 5 MG TAB PO SCH (08:46)
[2021-05-10] MEDS: EZETIMIBE 10 MG TABLET PO SCH (08:46)
[2021-05-10] MEDS: MULTIVITAMIN TAB PO SCH (08:46)
[2021-05-10] MEDS: SENNA 8.6 MG TAB PO SCH (08:46)
[2021-05-10] MEDS: POT PHOSPHATE MONOBASIC W/ SOD TAB PO SCH ×4 (08:47→20:22)
[2021-05-10] MEDS: ATORVASTATIN 40 MG TAB PO SCH (08:47)
[2021-05-10] MEDS: LEFLUNOMIDE 10 MG TAB PO SCH (08:47)
[2021-05-10] MEDS: amLODIPine BESYLATE 5 MG TAB PO SCH (08:47)
[2021-05-10] MEDS: FOLIC ACID 1 MG TAB PO SCH (08:48)
[2021-05-10] MEDS: CLOPIDOGREL BISULFATE 75 MG TAB PO SCH (08:48)
[2021-05-10] MEDS: GABAPENTIN 100 MG CAP PO SCH ×2 (08:48→20:21)
[2021-05-10] MEDS: LIDOCAINE 5% 1 PATCH TD SCH (08:49)
[2021-05-10] MEDS ORDERED: KETOROLAC TROMETHAMINE 15 MG/ML VIAL IV ONE (09:59)
--- NOTE | 2021-05-10 17:00 | Hospitalist Progress Note ---
Date of Service May 10, 2021 Assessment & Plan (1) Acute UTI: Plan: Urine culture growing E. coli On Rocephin Normal procalcitonin Blood cultures negative to date Presyncopal Episode Likely vasovagal given episode occurring after bowel movement No loss of consciousness Fall Precautions PT/OT Transient Confusion Likely acute metabolic encephalopathy blood cultures negative to date Avoid sedative medications Consider CT head if required Reorient frequently Mental status back to baseline Hypophosphatemia Hypokalemia Replace electrolytes as needed Hypoxia unclear etiology CXR:No acute cardiopulmonary disease. Weaned off of supplemental oxygen (2) Leg pain, bilateral: Plan: Bilateral leg pain H/O ongoing leg pain and back pain which gradually worsened for past 2 -4 weeks H/O B/L knee replacement Imaging studies suggestive of degenerative changes with no acute abnormality Continue PT OT Pain control Minimize Narcotic use as able Consult Orthopedics (3) S/P TAVR (transcatheter aortic valve replacement): (4) Anemia: (5) Supratherapeutic INR: (6) CAD (coronary artery disease): Plan: H/O CAD and recent TAVR on plavix, ezetimibe and atorvastatin Appreciate Cardiology Input Presented with supratherapeutic INR Received vitamin K Monitor INR 6.6 today Hold Coumadin today Will consider Vit K if INR continues to rise Chronic anemia No obvious bleeding Monitor CBC Hb 7.8 today Check FOBT Abnormal thyroid function test Elevated TSH normal free T4 Advised to repeat thyroid function test as outpatient Code Status Full code DVT prophylaxis Warfarin-held Disposition PT OT prior to discharge Admission and Anticipated Discharge Date Admission Date: May 04, 2021 Subjective Patient is seen and examined at bedside Having significant lower extremity pain this morning Updated patient's son at bedside Also reports back pain Denies any chest pain, shortness of breath, dizziness, cough, abdominal pain Review of Systems Review of Systems: All systems reviewed & are unremarkable except as noted in Subjective Physical Exam Physical Exam: Physical Exam: Vitals signs as noted above General Appearance:Moderately built and nourished, no apparent distress Head: normocephalic, Atraumatic Eyes: normal inspection, EOMI Neck: supple, Trachea midline Respiratory/Chest: Normal breath sounds, CTA, No accessory muscle use Cardiovascular: S1, S2, No murmur Abdomen/GI:Soft, Non tender, Bowel sounds present Extremities/Musculoskeletal:normal inspection, Trace edema Neurologic/Psych:AAOX3, grossly no focal neurological deficits Skin: normal color, warm Results & Data Results & Data ([facility]) Vital Signs (Past 12 Hours) Vital Signs Temp Pulse Pulse Resp BP BP Pulse Ox 05/10/21 15:15 37 C 74 18 154/72 H 91 05/10/21 15:02 75 05/10/21 12:00 38 C H 76 20 124/57 L 96 05/10/21 08:00 36.9 C 84 18 169/72 H 95 05/10/21 07:44 71 05/10/21 07:02 37.4 C 05/10/21 06:06 37.8 C H 168/67 H Laboratory Results Short CBC 05/10/21 Range/Units 06:12 WBC 6.48 (4.8-10.8) K/uL Hgb 7.8 L (12.0-16.0) g/dL Hct 23.4 L (37-47) % Plt Count 69 L (130-400) K/uL BMP 05/10/21 06:12 Sodium 134 L Potassium 4.6 D Chloride 107 Carbon Dioxide 23 BUN 12 Creatinine 0.74 Glucose 86 Calcium 7.7 L (1) Anemia Anemia type: unspecified type Qualified Code(s): D64.9 - Anemia, unspecified
[2021-05-10] MEDS: cefTRIAXone SODIUM 1,000 MG in DEXTROSE 5% 50 ML IV SCH (17:31)
[2021-05-10] MEDS: rOPINIRole HCL 1 MG TABLET PO PRN (20:21)
[2021-05-11 06:04] LABS: Hematocrit (blood only) 24.1 % (37-47); Mean Corpuscular Hgb Conc 33.2 g/dL (32-36); Mean Corpuscular Volume 108.6 fL (80-100); RDW Standard Deviation 77.2 fL (36.4-46.3); Red Blood Count 2.22 M/uL (4.2-5.4); White Blood Count 6.78 K/uL (4.8-10.8)
[2021-05-11] MEDS: ACETAMINOPHEN 325 MG TAB PO PRN ×2 (06:04→22:53)
[2021-05-11 06:25] LABS: BUN Creatinine Ratio 15.5 (10-20); Calcium 7.8 mg/dl (8.5-10.1); Creatinine Clr Calc Pharmacy 40.1 ml/min; Est GFR (African American) 75.5 ml/min; Est GFR (Non-African American) 65.2 ml/min; Potassium 4.3 mmol/L (3.5-5.1); Prothrombin Time 36.7 Seconds (9.0-12.0)
[2021-05-11 06:43] LABS: Mean Platelet Volume 10.7 fL (7.4-10.4); Platelet Count 88 K/uL (130-400)
[2021-05-11] MEDS: POT PHOSPHATE MONOBASIC W/ SOD TAB PO SCH ×4 (08:40→22:06)
[2021-05-11] MEDS: PANTOprazole 40 MG TAB PO SCH (08:41)
[2021-05-11] MEDS: FOLIC ACID 1 MG TAB PO SCH (08:41)
[2021-05-11] MEDS: GABAPENTIN 100 MG CAP PO SCH ×2 (08:41→22:05)
[2021-05-11] MEDS: METOPROLOL SUCC 50MG EXT REL TAB PO SCH ×2 (08:41→22:05)
[2021-05-11] MEDS: amLODIPine BESYLATE 5 MG TAB PO SCH (08:42)
[2021-05-11] MEDS: SENNA 8.6 MG TAB PO SCH (08:42)
[2021-05-11] MEDS: EZETIMIBE 10 MG TABLET PO SCH (08:43)
[2021-05-11] MEDS: predniSONE 5 MG TAB PO SCH (08:43)
[2021-05-11] MEDS: LEFLUNOMIDE 10 MG TAB PO SCH (08:43)
[2021-05-11] MEDS: CLOPIDOGREL BISULFATE 75 MG TAB PO SCH (08:44)
[2021-05-11] MEDS: MULTIVITAMIN TAB PO SCH (08:46)
[2021-05-11] MEDS: ATORVASTATIN 40 MG TAB PO SCH (08:46)
[2021-05-11] MEDS: LIDOCAINE 5% 1 PATCH TD SCH (08:54)
--- NOTE | 2021-05-11 15:29 | Cardiology Progress Note ---
Date of Service May 11, 2021 Assessment & Plan (1) S/P TAVR (transcatheter aortic valve replacement): Plan: stable findings on recent echocardiogram status post recent TAVR. No congestive heart failure. Continue clopidogrel. (2) CAD (coronary artery disease): Plan: Stable chronic coronary heart disease. Continue clopidogrel. (3) Supratherapeutic INR: Plan: Patient on Coumadin due to history of past venous thromboembolic event. Coumadin on hold for INR of 4.0. (4) Leg pain, bilateral: Plan: Continue Lidoderm patch, tramadol on hold. Plan: Patient with low-grade fever, remains on Rocephin for E. coli in urine, however based on repetitive positive urine cultures, question if this is reflective of chronic colonization. With regards to alternative causes of her low-grade temperature, 38 degrees today, subacute bacterial endocarditis a possibility (cultures negative), however patient also appears to have a resolving outbreak of herpes labialis and has diarrhea offering alternative causes. Admission and Anticipated Discharge Date Admission Date: May 04, 2021 Subjective Patient seen in cardiology follow-up. Notes ongoing back, leg pain. Sore lips. Diarrhea. Physical Exam Constitutional: + ill appearing; no acute distress Respiratory: normal respiratory effort, lungs clear to auscultation Cardiovascular: RRR, no murmur, no edema Rate/Rhythm: regular rate and regular rhythm Extremities: + edema ( trace ankle and lower extremity edema) Gastrointestinal (Abdomen): normal bowel sounds, soft, nontender, no hepatosplenomegaly Neurologic: PERRL, EOMI, accommodation nl, no face palsy, no dysarthria Results & Data ([facility]) Vital Signs (Past 12 Hours) Vital Signs Temp Pulse Pulse Resp BP Pulse Ox 05/11/21 11:10 38 C H 82 20 148/74 H 91 05/11/21 08:00 37.9 C H 87 18 146/66 H 92 05/11/21 07:12 79 Laboratory Results 05/11/2021: INR 4.0.
--- NOTE | 2021-05-11 17:04 | Hospitalist Progress Note ---
Date of Service May 11, 2021 Assessment & Plan (1) Acute UTI: Plan: Urine culture growing E. coli On Rocephin Normal procalcitonin Blood cultures negative to date Presyncopal Episode Likely vasovagal given episode occurring after bowel movement No loss of consciousness Fall Precautions PT/OT Transient Confusion Likely acute metabolic encephalopathy blood cultures negative to date Avoid sedative medications Consider CT head if required Reorient frequently Mental status back to baseline Resolved Low Grade Fever DD:subacute bacterial endocarditis, R/O C diff, Herpes Labialis Blood Cx:Negative Check stool for c diff Consider Lumbar CT to r/o abscess Hypophosphatemia Hypokalemia Replace electrolytes as needed Hypoxia unclear etiology CXR:No acute cardiopulmonary disease. Weaned off of supplemental oxygen (2) Leg pain, bilateral: Plan: Bilateral leg pain H/O ongoing leg pain and back pain which gradually worsened for past 2 -4 weeks H/O B/L knee replacement Imaging studies suggestive of degenerative changes with no acute abnormality Continue PT OT Pain control Minimize Narcotic use as able Consult Orthopedics (3) S/P TAVR (transcatheter aortic valve replacement): (4) Anemia: (5) Supratherapeutic INR: (6) CAD (coronary artery disease): Plan: H/O CAD and recent TAVR on plavix, ezetimibe and atorvastatin Appreciate Cardiology Input Presented with supratherapeutic INR Received vitamin K Monitor INR 4.0 today Hold Coumadin today Will consider Vit K if INR continues to rise Chronic anemia No obvious bleeding Monitor CBC Hb 8.0 today Check FOBT Abnormal thyroid function test Elevated TSH normal free T4 Advised to repeat thyroid function test as outpatient Code Status Full code DVT prophylaxis Warfarin-held Disposition PT OT prior to discharge Admission and Anticipated Discharge Date Admission Date: May 04, 2021 Subjective Patient is seen and examined at bedside Less back/leg pain today Reports having diarrhea Denies any chest pain, shortness of breath, dizziness, cough, abdominal pain Discussed with Cardiology today Review of Systems Review of Systems: All systems reviewed & are unremarkable except as noted in Subjective Physical Exam Physical Exam: Physical Exam: Vitals signs as noted above General Appearance:Moderately built and nourished, no apparent distress Head: normocephalic, Atraumatic Eyes: normal inspection, EOMI Neck: supple, Trachea midline Respiratory/Chest: Normal breath sounds, CTA, No accessory muscle use Cardiovascular: S1, S2, No murmur Abdomen/GI:Soft, Non tender, Bowel sounds present Extremities/Musculoskeletal:normal inspection, Trace edema Neurologic/Psych:AAOX3, grossly no focal neurological deficits Skin: normal color, warm Results & Data Results & Data ([facility]) Vital Signs (Past 12 Hours) Vital Signs Temp Pulse Pulse Resp BP Pulse Ox 05/11/21 16:07 78 05/11/21 15:39 37.6 C H 87 18 158/65 H 90 05/11/21 11:10 38 C H 82 20 148/74 H 91 05/11/21 08:00 37.9 C H 87 18 146/66 H 92 05/11/21 07:12 79 Laboratory Results Short CBC 05/11/21 Range/Units 05:41 WBC 6.78 (4.8-10.8) K/uL Hgb 8.0 L (12.0-16.0) g/dL Hct 24.1 L (37-47) % Plt Count 88 L (130-400) K/uL BMP 05/11/21 05:41 Sodium 135 L Potassium 4.3 Chloride 106 Carbon Dioxide 23 BUN 13 Creatinine 0.84 Glucose 78 Calcium 7.8 L Cardiac Enzymes 05/11/21 Range/Units 05:41 Total Creatine Kinase 49 (26-192) U/L (1) Anemia Anemia type: unspecified type Qualified Code(s): D64.9 - Anemia, unspecified
[2021-05-11] MEDS: cefTRIAXone SODIUM 1,000 MG in DEXTROSE 5% 50 ML IV SCH (18:15)
[2021-05-11] MEDS: rOPINIRole HCL 1 MG TABLET PO PRN (22:04)
[2021-05-11] MEDS: ONDANSETRON INJ 2 MG/ML 2 ML VIAL IV PRN (22:44)
[2021-05-11] MEDS ORDERED: ACETAMINOPHEN 1,000 MG/100 ML VIAL IV STA (23:44)
[2021-05-12 00:18] LABS: Hematocrit (blood only) 25.6 % (37-47); Hemoglobin 8.4 g/dL (12.0-16.0); Mean Corpuscular Hemoglobin 35.1 pg (25-34); Mean Corpuscular Hgb Conc 32.8 g/dL (32-36); Mean Corpuscular Volume 107.1 fL (80-100); RDW Coefficient of Variation 19.6 % (11.5-14.5); RDW Standard Deviation 75.3 fL (36.4-46.3); Red Blood Count 2.39 M/uL (4.2-5.4); White Blood Count 5.73 K/uL (4.8-10.8)
[2021-05-12 00:40] LABS: BUN Creatinine Ratio 15.2 (10-20); Calcium 7.7 mg/dl (8.5-10.1); Creatinine Clr Calc Pharmacy 42.7 ml/min; Est GFR (African American) 81.4 ml/min; Est GFR (Non-African American) 70.2 ml/min; Magnesium 1.8 mg/dl (1.7-2.4); Potassium 3.8 mmol/L (3.5-5.1)
[2021-05-12 00:51] LABS: Basophils # (auto) 0.04 K/uL (0-0.2); Basophils % (auto) 0.7 %; Eosinophils # (auto) 0.22 K/uL (0-0.5); Eosinophils % (auto) 3.8 %; Immature Granulocytes # (auto) 0.02 K/uL (0.00-0.02); Immature Granulocytes % (auto) 0.3 %; Lymphocytes # (auto) 0.71 K/uL (1.2-3.4); Lymphocytes % (auto) 12.4 %; Mean Platelet Volume 10.2 fL (7.4-10.4); Monocytes # (auto) 0.89 K/uL (0.11-0.59); Monocytes % (auto) 15.5 %; Neutrophils # (auto) 3.85 K/uL (1.4-6.5); Neutrophils % (auto) 67.3 %; Platelet Count 99 K/uL (130-400)
[2021-05-12 01:37] LABS: Cdiff Antigen Positive; Cdiff Toxin A+B Negative Cdiff Toxin (Negative)
[2021-05-12] MEDS: ACETAMINOPHEN 325 MG TAB PO PRN (08:47)
[2021-05-12] MEDS: PANTOprazole 40 MG TAB PO SCH (08:47)
[2021-05-12] MEDS: POT PHOSPHATE MONOBASIC W/ SOD TAB PO SCH ×4 (08:48→20:56)
[2021-05-12] MEDS: predniSONE 5 MG TAB PO SCH (08:48)
[2021-05-12] MEDS: amLODIPine BESYLATE 5 MG TAB PO SCH (08:49)
[2021-05-12] MEDS: FOLIC ACID 1 MG TAB PO SCH (08:49)
[2021-05-12] MEDS: LEFLUNOMIDE 10 MG TAB PO SCH (08:49)
[2021-05-12] MEDS: ATORVASTATIN 40 MG TAB PO SCH (08:50)
[2021-05-12] MEDS: EZETIMIBE 10 MG TABLET PO SCH (08:50)
[2021-05-12] MEDS: CLOPIDOGREL BISULFATE 75 MG TAB PO SCH (08:50)
[2021-05-12] MEDS: MULTIVITAMIN TAB PO SCH (08:50)
[2021-05-12] MEDS: GABAPENTIN 100 MG CAP PO SCH ×3 (08:50→20:54)
[2021-05-12] MEDS: METOPROLOL SUCC 50MG EXT REL TAB PO SCH ×2 (08:51→20:55)
[2021-05-12] MEDS: LIDOCAINE 5% 1 PATCH TD SCH (08:51)
--- NOTE | 2021-05-12 10:47 | Hospitalist Progress Note ---
Date of Service May 12, 2021 Assessment & Plan (1) Acute UTI: Plan: E coli UTI -history of recurrent UTIs -will continue Ceftriaxone, follow up urine cultures -blood cultures negative to date Presyncopal Episode -Likely vasovagal given episode occurring after bowel movement -No loss of consciousness -Fall Precautions -Evaluated by PT and rehab is recommended. Patient has been accepted to [facility] Transient Confusion -At risk for delirium with her age and being hospitalized blood cultures negative to date CT head on admission negative Reorient frequently Mental status back to baseline Resolved Low Grade Fever DD: UTI (being treated) vs herpes labialis (resolving) vs atelectasis (most likely) -Likely not subactue endocarditis with negative blood cultures -stool c diff ordered MRI Lumbar spine pending Bilateral leg pain H/O ongoing leg pain and back pain which gradually worsened for past 2 -4 weeks H/O B/L knee replacement Imaging studies suggestive of degenerative changes with no acute abnormality Continue PT OT Consult Orthopedics -MRI lumbar spine pending -Inadequate pain control--> will order scheduled tylenol 650mg TID, increase Gabapentin to 200mg TID, continue tramadol and lidoderm patch Hypophosphatemia Hypokalemia Replace electrolytes as needed -repeat BMP tomorrow (2) Leg pain, bilateral: (3) S/P TAVR (transcatheter aortic valve replacement): (4) Anemia: Plan: Chronic Macrocytic anemia No obvious bleeding Monitor CBC -check B12, folate, Iron studies (5) Supratherapeutic INR: Plan: -patient is maintained on coumadin for history of PE, DVT. Coumadin on hold for INR 4 yesterday. will repeat INR tomorrow -Unclear if she needs to remain on anticoagulation indefinitely. And also if she would be a NOAC candidtion--will defer to PCP. (6) CAD (coronary artery disease): Plan: H/O CAD and recent TAVR on plavix, ezetimibe and atorvastatin Appreciate Cardiology Input Plan: Abnormal thyroid function test Elevated TSH normal free T4 Advised to repeat thyroid function test as outpatient Code Status Full code DVT prophylaxis Warfarin-held. INR supratherapeutic Disposition Will need Rehab. Accepted at [facility]. Discharge pending urine culture and adequate pain control Admission and Anticipated Discharge Date Admission Date: May 04, 2021 Anticipated date of discharge: 05/13/21 Subjective Ongoing back pain which radiates down both legs to knees Physical Exam Physical Exam: No acute distress. Non toxic, appears forgetful Respiratory: breathing comfortably on room air. No wheezing/rhonchi/rales Cardiovascular: regular rate and rhythm. no murmurs/rubs/gallops Gastrointestinal (Abdomen): soft, non tender Musculoskeletal: no edema Skin: labia examined--no obvious lesions noted Neurologic: awake, spontaneously moving extremities Results & Data Results & Data ([facility]) Vital Signs (Past 12 Hours) Vital Signs Temp Pulse Pulse Pulse Resp BP BP 05/12/21 08:00 78 05/12/21 07:58 37.0 C 82 16 180/60 H 05/12/21 04:06 37.7 C H 84 16 140/74 05/12/21 01:39 37.3 C 05/11/21 22:57 38.6 C H 88 20 148/62 H 05/11/21 22:46 38.9 C H Pulse Ox 05/12/21 08:00 05/12/21 07:58 96 05/12/21 04:06 92 05/12/21 01:39 05/11/21 22:57 92 05/11/21 22:46 Laboratory Results Short CBC 05/04/21 05/05/21 05/06/21 Range/Units 15:45 05:29 05:32 WBC (4.8-10.8) K/uL Hgb (12.0-16.0) g/dL Hct (37-47) % Plt Count (130-400) K/uL Creatinine 0.92 0.88 0.82 (0.6-1.2) mg/dl 05/09/21 05/10/21 05/11/21 Range/Units 10:30 06:12 05:41 WBC (4.8-10.8) K/uL Hgb (12.0-16.0) g/dL Hct (37-47) % Plt Count (130-400) K/uL Creatinine 0.75 0.74 0.84 (0.6-1.2) mg/dl 05/11/21 05/11/21 Range/Units 23:58 23:58 WBC 5.73 (4.8-10.8) K/uL Hgb 8.4 L (12.0-16.0) g/dL Hct 25.6 L (37-47) % Plt Count 99 L (130-400) K/uL Creatinine 0.79 (0.6-1.2) mg/dl [facility] 05/11/21 23:58 Sodium 133 L Potassium 3.8 Chloride 105 Carbon Dioxide 22 BUN 12 Creatinine 0.79 Glucose 96 Calcium 7.7 L Medications Administered Current Inpatient Medications Acetaminophen (Acetaminophen 325 Mg Tab) 650 mg PO Q4H PRN PRN Reason: Pain or Fever Stop: 06/03/21 21:12 Last Admin: 05/12/21 08:47 Dose: 650 mg Documented by: Amlodipine Besylate (Amlodipine Besylate 5 Mg Tab) 5 mg PO [facility] Stop: 06/04/21 08:59 Last Admin: 05/12/21 08:49 Dose: 5 mg Documented by: Atorvastatin Calcium (Atorvastatin 40 Mg Tab) 40 mg PO [facility] Stop: 06/04/21 08:59 Last Admin: 05/12/21 08:50 Dose: 40 mg Documented by: Clopidogrel Bisulfate (Clopidogrel Bisulfate 75 Mg Tab) 75 mg PO [facility] Stop: 06/04/21 08:59 Last Admin: 05/12/21 08:50 Dose: 75 mg Documented by: Ezetimibe (Ezetimibe 10 Mg Tablet) 10 mg PO DAILY [facility] Stop: 06/04/21 08:59 Last Admin: 05/12/21 08:50 Dose: 10 mg Documented by: Folic Acid (Folic Acid 1 Mg Tab) [facility] Stop[facility] 06/04/21 08:59 Last Admin: 05/12/21 08:49 Dose: 2 mg Documented by: Gabapentin (Gabapentin 100 Mg Cap) 100 mg PO BID [facility] Stop: 06/03/21 21:29 Last Admin: 05/12/21 08:50 Dose: 100 mg Documented by: Hydrochlorothiazide (Hydrochlorothiazide 25 Mg Tab) 25 mg PO DAILY PRN PRN Reason: Fluid Retention Stop: 06/03/21 21:12 Ceftriaxone Sodium 1,000 mg/ (Dextrose) 50 mls @ 100 mls/hr IV Q24H [facility]; Protocol Stop: 05/12/21 17:59 Last Infusion: 05/11/21 20:19 Dose: Infused Documented by: Leflunomide (Leflunomide 10 Mg Tab) 20 mg PO [facility] Stop: 06/04/21 08:59 Last Admin: 05/12/21 08:49 Dose: 20 mg Documented by: Lidocaine (Lidocaine 5% 1 Patch) 1 [facility] [place]: 06/04/21 14:14 Last Admin: 05/12/21 08:51 Dose: 1 patch Documented by: Metoprolol Succinate (Metoprolol Succ 50mg Ext Rel Tab) 50 mg PO BID [facility] Stop: 06/09/21 04:24 Last Admin: 05/12/21 08:51 Dose: 50 mg Documented by: Miscellaneous (Remove Lidoderm Patch) 1 ea N/A DAILY@2100 [facility] Stop: 06/04/21 20:59 Last Admin: 05/11/21 22:06 Dose: Not Given Documented by: Multivitamins (Multivitamin Tab) 1 [facility] Stop: 06/04/21 08:59 Last Admin: 05/12/21 08:50 Dose: 1 tab Documented by: Nitroglycerin (Nitroglycerin Sl 0.4 Mg/Tab Tab) 0.4 mg SL UD PRN PRN Reason: Chest Pain Stop: 06/03/21 21:12 Ondansetron HCl (Ondansetron Inj 2 Mg/Ml 2 Ml Vial) 4 mg IV TID PRN PRN Reason: Nausea Stop: 06/05/21 08:21 Last Admin: 05/11/21 22:44 Dose: 4 mg Documented by: Pantoprazole Sodium (Pantoprazole 40 Mg Tab) 40 mg PO DAILY [facility] Stop: 06/04/21 08:59 Last Admin: 05/12/21 08:47 Dose: 40 mg Documented by: Potassium Phosphate (Pot Phosphate Monobasic W/ Sod Tab) 1 tab PO QID [facility] Stop: 06/08/21 12:59 Last Admin: 05/12/21 08:48 Dose: 1 tab Documented by: Prednisone (Prednisone 5 Mg Tab) 5 mg PO QAM [facility] Stop: 06/04/21 08:59 Last Admin: 05/12/21 08:48 Dose: 5 mg Documented by: Ropinirole HCl (Ropinirole Hcl 1 Mg Tablet) 3 mg PO HS PRN PRN Reason: Restless Leg(S) Stop: 06/03/21 21:12 Last Admin: 05/11/21 22:04 Dose: 3 mg Documented by: Saccharomyces Boulardii (Saccharomyces Boulardii 250 Mg Cap) 250 mg PO DAILY [facility] Stop: 06/12/21 08:59 Sennosides (Senna 8.6 Mg Tab) 8.6 mg PO DAILY [facility] Stop: 06/04/21 08:59 Last Admin: 05/11/21 08:42 Dose: 8.6 mg Documented by: Tramadol HCl (Tramadol Hcl 50 Mg Tablet) 25 mg PO Q4H PRN PRN Reason: moderate/severe pain Stop: 06/05/21 15:31 Last Admin: 05/08/21 07:21 Dose: 25 mg Documented by: Tramadol HCl (Tramadol Hcl 50 Mg Tablet) 25 mg PO Q8H PRN PRN Reason: Pain Stop: 06/09/21 09:59 Warfarin Sodium (Warfarin Sod 2.5 Mg Tab) 2.5 mg PO SuTuWeThFrSa@1600 [facility] Stop: 06/05/21 15:59 Last Admin: 05/08/21 15:38 Dose: 2.5 mg Documented by: Warfarin Sodium (Warfarin Sod 1.25 Mg Tab) 1.25 mg PO Mo@1600 [facility] Stop: 06/11/21 15:59 (1) Anemia Anemia type: unspecified type Qualified Code(s): D64.9 - Anemia, unspecified
[2021-05-12] MEDS: traMADol HCL 50 MG TABLET PO PRN (12:18)
--- NOTE | 2021-05-12 13:55 | Magnetic Resonance Report ---
MRI OF THE LUMBAR SPINE WITHOUT IV CONTRAST CLINICAL HISTORY: Low back pain. Bilateral lower extremity radiculopathy. COMPARISON STUDY: CT of the lumbar spine dated 10/15/2020. MRI of the lumbar spine dated 10/23/2010. TECHNIQUE: MRI of the lumbar spine is performed utilizing various T1 and T2-weighted sequences in the axial and sagittal planes. IV contrast was not administered for this examination. The examination is significantly compromised by motion artifact, as well as susceptibility artifact from metallic spina l hardware. FINDINGS: Lumbar spine: There is a mild superior endplate compression deformity of L2. This is new from the 09/27 CT scan. There is associated marrow edema, and this is likely acute to subacute. Vertebral body h eight is otherwise maintained throughout the lumbar spine. Alignment is preserved. There is postopera tive change from laminectomy and posterior fusion seen from L3-S1. Interpedicular screws are present at all levels. Anterior and lateral marginal osteophytes are seen throughout. No destructive bony les ion is seen. Intervertebral discs: There has been discectomy at L5-S1. Disc desiccation and loss of height is seen at the remaining lumbar levels. Loss of height is moderate to severe at L2-L3, L3-L4, and L4-L5. Spinal cord: The visualized spinal cord is normal in morphology and signal intensity. The conus medul noemi terminates at the level of L1. The nerve roots of the cauda equina are not well evaluated due t o significant motion artifact. T10-T11: This level is only assessed on the sagittal sequences. There is posterior disc bulge with a large superiorly extruded disc fragment which measures up to 13 mm. This is best seen on sagittal lazara ge #8. There is no high-grade central canal stenosis at this level. The neural foramina appear clear. T11-T12: This level is only seen on the sagittal sequence. There is a posterior disc osteophyte compl ex. No high-grade central canal stenosis is identified. T12-L1: This level is only seen on the sagittal sequences. There is a large posterior disc osteophyte complex. There is no high-grade central canal stenosis at this level. There is right lateral disc ex trusion which contributes to severe right-sided neural foraminal narrowing. L1-L2: There is minimal posterior disc bulge. There is left lateral disc bulge which contributes to s ubarticular stenosis. In conjunction with facet arthropathy there is mild left-sided neural foraminal narrowing. The right neural foramen appears clear. L2-L3: There is a large posterior disc bulge. In conjunction with hypertrophy of the ligamentum flavu m there is moderate to severe central canal stenosis at this level. The minimum AP diameter measures 4 mm. Question lateral disc extrusion bilaterally, right greater than left. There is likely severe bi lateral neural foraminal stenosis. L3-L4: The central canal and neural foramina are grossly clear. L4-L5: The central canal and neural foramina are grossly clear. L5-S1: The central canal and neural foramina are grossly clear. Sacrum: There is chronic posttraumatic deformity of S2. There is no marrow edema to suggest acuity. Soft tissues: There is marked fatty atrophy of the paraspinous musculature. Postoperative change is s een throughout the operative levels. The retroperitoneal structures are grossly unremarkable but inco mpletely evaluated. The bladder appears distended. IMPRESSION: 1. Severely motion compromised examination. 2. There is a mild acute superior end plate compression fracture of L2. Marrow edema suggests this is acute to subacute. 3. There is a 13 mm superiorly extruded disc fragment at T10-T11. 4. There is moderate to severe central canal stenosis at L2-L3. 5. Postoperative and spondylotic change at additional levels as above. See discussion for detailed le mauricio by level analysis. Dictated: 05/12/2021 11:00 AM Transcribed: 05/12/2021 12:40 PM Nathalia [id number] [email or web address] Electronically signed by: Vitaliy Tate M.D. 05/12/2021 1:54 PM
[2021-05-12] MEDS: ACETAMINOPHEN 325 MG TAB PO SCH ×2 (14:11→20:53)
--- NOTE | 2021-05-12 14:22 | Orthopedic Consultation ---
Date of Consultation May 12, 2021 Assessment & Plan (1) Lumbar disc herniation with radiculopathy: MRI lumbar spine does demonstrate evidence of adjacent level spinal stenosis with evidence of disc herniation and significant neuroforaminal disease L2-L3. This would be consistent with her presentation. I discussed with her treatment options. She is not interested in any surgical intervention. She still recovering from urinary tract infection and would be a poor surgical candidate. We could consider consultation with pain management however in light of her recent infection injections may be unwarranted. History of Present Illness Reason for Consultation: Bilateral leg pain Attending Physician: Navid Echevarria MD History of Present Illness This is a 80-year-old female well-known to me having undergone a multilevel lumbar decompression fusion many years ago. She states that she has had marked decline in status over the past few weeks. She denies any specific trauma fall or event. She describes pain involving the back and bilateral anterior thighs to the knees. The right is worse than left. She must use a walker to ambulate because she is concerned her legs will give way and she will fall. Allergies Allergy/AdvReac Type Severity Reaction Status Date / Time baclofen Allergy Mild DIZZY Verified 05/04/21 17:39 Penicillins Allergy Mild RASH Verified 05/04/21 17:39 Sulfa (Sulfonamide Allergy Mild HEADACHE Verified 05/04/21 17:39 Antibiotics) Home Medications Medication Instructions Recorded Confirmed Type atorvastatin 40 mg tablet 40 mg PO QAM 07/01/18 05/04/21 History coenzyme Q10 10 mg capsule 10 mg PO QPM 07/01/18 05/04/21 History hydrochlorothiazide 25 mg tablet 25 mg PO DAILY PRN 07/01/18 05/04/21 History metoprolol succinate 50 mg 50 mg PO BID 07/01/18 05/04/21 History tablet,extended release 24 hr multivitamin 1 tab PO QAM 07/01/18 05/04/21 History prednisone 5 mg tablet 5 mg PO QAM 07/01/18 05/04/21 History folic acid 1 mg tablet 2 mg PO QAM 10/17/19 05/04/21 History leflunomide 10 mg tablet (Arava) 20 mg PO QAM 10/17/19 05/04/21 History methotrexate sodium 2.5 mg tablet 10 mg PO FR 11/14/19 05/04/21 History clopidogrel 75 mg tablet 75 mg PO QAM 05/09/20 05/04/21 History ropinirole 3 mg tablet 3 mg PO HS PRN 05/09/20 05/04/21 History amlodipine 5 mg tablet (Norvasc) 5 mg PO QAM #30 tab 05/10/20 05/04/21 Rx ezetimibe 10 mg tablet 10 mg PO DAILY 04/21/21 05/04/21 History gabapentin 100 mg capsule 100 mg PO BID 04/21/21 05/04/21 History pantoprazole 40 mg tablet,delayed 40 mg PO DAILY 04/21/21 05/04/21 History release sennosides 8.6 mg tablet (senna) 8.6 mg PO DAILY 04/21/21 05/04/21 History warfarin 2.5 mg tablet 2.5 mg PO [id number] 04/21/21 05/04/21 History warfarin 2.5 mg tablet 1.25 mg PO WK 05/04/21 05/04/21 History Patient History Medical History CAD (coronary artery disease) Chronic anticoagulation CKD (chronic kidney disease) stage 3, GFR 30-59 ml/min Diverticular disease hx diverticulitis GERD (gastroesophageal reflux disease) History of DVT (deep vein thrombosis) a few years ago. remote h/o PE as well. on m[facility] anticoagulation HLD (hyperlipidemia) HTN (hypertension) Lumbar radiculopathy Obstructive sleep apnea WEARS O2 AT 2L AT HS On home oxygen therapy 2L AT HS Paroxysmal SVT (supraventricular tachycardia) Rheumatoid arthritis RLS (restless legs syndrome) Severe aortic stenosis SVT (supraventricular tachycardia) Surgical History H/O colonoscopy H/O eye surgery LEFT History of carpal tunnel surgery RT/LEFT History of esophagogastroduodenoscopy (EGD) History of heart artery stent 03/18/2020-TYLER x 2 to LAD History of lumbar fusion History of tooth extraction History of total knee replacement RT/LEFT S/P CHANNING-BSO S/P TAVR (transcatheter aortic valve replacement) Family History Other Heart disease No family history of adverse response to anesthesia Rheumatoid arthritis Social History Smoking Status: Never smoker Tobacco Type: Cigarettes Second Hand Exposure: Yes (IN THE PAST); Hx Alcohol Use: No Hx Substance Use: No Preferred Language: Scottish Communication Ability: Effective Director Of Accreditation Required: No Beliefs That Will Affect Care: None marital status: Current Living Situation: Spouse Current Living Situation Comment: Lives with How many Children do You have: 1 Feels Safe at Home: Yes Assistive Devices: Denture - Upper, Denture - Lower and Hearing Aid - Bilateral Physical Exam Physical Exam: On exam she is comfortable lying in bed. She exhibits full sensation of the lower extremities. Plantar flexion dorsiflexion intact. There is deficits to right greater than left quadricep function as well as hip flexor. Results & Data ([facility]) Vital Signs (Past 12 Hours) Vital Signs Temp Pulse Pulse Pulse Resp BP Pulse Ox 05/12/21 11:25 36.6 C 80 14 146/60 H 90 05/12/21 08:00 78 05/12/21 07:58 37.0 C 82 16 180/60 H 96 05/12/21 04:06 37.7 C H 84 16 140/74 92
[2021-05-12] MEDS ORDERED: WARFARIN SOD 1.25 MG TAB PO SCH (16:00)
--- NOTE | 2021-05-12 18:19 | Cardiology Progress Note ---
Date of Service May 12, 2021 Assessment & Plan (1) S/P TAVR (transcatheter aortic valve replacement): (2) Lumbar disc herniation with radiculopathy: (3) C. difficile colitis: Plan: Findings of C. difficile may explain patient's diarrhea and low-grade fever. Also with noted resolving cold sore on lower lip. Case discussed with Dr Gonzalez , MRI with evidence of disc herniation and significant neuroforaminal disease L2-L3 whic is consistent with her presenting symptoms of severe back and leg pain. Cardiac [facility] , she is well compensated. Admission and Anticipated Discharge Date Admission Date: May 04, 2021 Subjective Patient seen in follow-up. Comfortable. Ongoing diarrhea. C. difficile test positive as of 05/11/2021. Physical Exam Physical Exam: Temp Pulse Resp BP Pulse Ox 36.7 C 77 18 108/57 L 93 05/12/21 15:33 05/12/21 15:33 05/12/21 15:33 05/12/21 15:33 05/12/21 15:33 Respiratory: normal respiratory effort, lungs clear to auscultation Cardiovascular: RRR, no murmur, no edema Gastrointestinal (Abdomen): Diarrhea Neurologic: Conversant. Moves all 4 extremities Results & Data ([facility]) Vital Signs (Past 12 Hours) Vital Signs Temp Pulse Pulse Pulse Resp BP Pulse Ox 05/12/21 15:33 36.7 C 77 18 108/57 L 93 05/12/21 11:25 36.6 C 80 14 146/60 H 90 05/12/21 08:00 78 05/12/21 07:58 37.0 C 82 16 180/60 H 96
[2021-05-12] MEDS: rOPINIRole HCL 1 MG TABLET PO PRN (21:47)
[2021-05-12] MEDS: VANCOMYCIN HCL 125 MG/2.5ML SOLN PO SCH (23:42)
[2021-05-12] MEDS: RASPBERRY SYRUP 5 ML UDP PO SCH (23:42)
[2021-05-13] MEDS: RASPBERRY SYRUP 5 ML UDP PO SCH ×2 (06:19→11:23)
[2021-05-13] MEDS: VANCOMYCIN HCL 125 MG/2.5ML SOLN PO SCH ×2 (06:19→11:24)
[2021-05-13 07:37] LABS: INR 2.9 (0.9-1.1); Prothrombin Time 27.1 Seconds (9.0-12.0)
[2021-05-13 07:48] LABS: BUN Creatinine Ratio 18.2 (10-20); Calcium 7.9 mg/dl (8.5-10.1); Creatinine Clr Calc Pharmacy 44.1 ml/min; Est GFR (African American) 83.9 ml/min; Est GFR (Non-African American) 72.4 ml/min; Magnesium 1.8 mg/dl (1.7-2.4); Potassium 3.9 mmol/L (3.5-5.1)
[2021-05-13 07:58] LABS: Hematocrit (blood only) 26.4 % (37-47); Hemoglobin 8.7 g/dL (12.0-16.0); Mean Corpuscular Hemoglobin 35.5 pg (25-34); Mean Corpuscular Volume 107.8 fL (80-100); Mean Platelet Volume 12.1 fL (7.4-10.4); Platelet Count 146 K/uL (130-400); RDW Coefficient of Variation 19.5 % (11.5-14.5); RDW Standard Deviation 75.1 fL (36.4-46.3); Red Blood Count 2.45 M/uL (4.2-5.4); White Blood Count 7.38 K/uL (4.8-10.8)
[2021-05-13 07:59] LABS: Anisocytosis Present; Basophils # (auto) 0.05 K/uL (0-0.2); Basophils % (auto) 0.7 %; Eosinophils # (auto) 0.67 K/uL (0-0.5); Eosinophils % (auto) 9.1 %; Immature Granulocytes # (auto) 0.03 K/uL (0.00-0.02); Immature Granulocytes % (auto) 0.4 %; Lymphocytes # (auto) 0.86 K/uL (1.2-3.4); Lymphocytes % (auto) 11.7 %; Macrocytosis Present; Monocytes # (auto) 0.62 K/uL (0.11-0.59); Monocytes % (auto) 8.4 %; Neutrophils # (auto) 5.15 K/uL (1.4-6.5); Neutrophils % (auto) 69.7 %
[2021-05-13] MEDS: FOLIC ACID 1 MG TAB PO SCH (08:04)
[2021-05-13] MEDS: POT PHOSPHATE MONOBASIC W/ SOD TAB PO SCH ×4 (08:04→20:50)
[2021-05-13] MEDS: ATORVASTATIN 40 MG TAB PO SCH (08:04)
[2021-05-13] MEDS: SACCHAROMYCES BOULARDII 250 MG CAP PO SCH (08:04)
[2021-05-13] MEDS: MULTIVITAMIN TAB PO SCH (08:04)
[2021-05-13] MEDS: ACETAMINOPHEN 325 MG TAB PO SCH ×3 (08:04→20:46)
[2021-05-13] MEDS: GABAPENTIN 100 MG CAP PO SCH ×3 (08:04→20:47)
[2021-05-13] MEDS: EZETIMIBE 10 MG TABLET PO SCH (08:05)
[2021-05-13] MEDS: PANTOprazole 40 MG TAB PO SCH (08:05)
[2021-05-13] MEDS: LEFLUNOMIDE 10 MG TAB PO SCH (08:05)
[2021-05-13] MEDS: amLODIPine BESYLATE 5 MG TAB PO SCH (08:05)
[2021-05-13] MEDS: predniSONE 5 MG TAB PO SCH (08:05)
[2021-05-13] MEDS: LIDOCAINE 5% 1 PATCH TD SCH (08:05)
[2021-05-13] MEDS: METOPROLOL SUCC 50MG EXT REL TAB PO SCH ×2 (08:06→20:50)
[2021-05-13] MEDS: CLOPIDOGREL BISULFATE 75 MG TAB PO SCH (08:06)
--- NOTE | 2021-05-13 16:07 | Hospitalist Progress Note ---
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 -Episode of diarrhea yesterday--> stool analyzed, patient is c diff carrier but not actively infected. No further diarrheal episodes yet today. PO vancomycin discontinued -Consider drug fever, she has been on ceftriaxone for extended period of time. Will monitor off all antibiotics -Consideration of VTE is low likelihood, she is on coumadin and was supratherapeutic -Will repeat Covid test. Last was on 05/04 upon admission which was negative Bilateral leg pain Mod-severe spinal stenosis L2 subacute to acute mild compression fracture H/O ongoing leg pain and back pain which gradually worsened for past 2 -4 weeks -MRI lumbar spine results below -Appreciate Ortho input, with her recent UTI and ongoing fever. She is not a surgical candidate -Improved with changes in pain regimen yesterday: scheduled tylenol 650mg TID, increased Gabapentin to 200mg TID, continue tramadol and lidoderm patch -will continue with PT IMPRESSION: 1. Severely motion compromised examination. 2. There is a mild acute superior end plate compression fracture of L2. Marrow edema suggests this is acute to subacute. 3. There is a 13 mm superiorly extruded disc fragment at T10-T11. 4. There is moderate to severe central canal stenosis at L2-L3. 5. Postoperative and spondylotic change at additional levels as above. See discussion for detailed level by level analysis. Presyncopal Episode -Likely vasovagal given episode occurring after bowel movement -No loss of consciousness -Fall Precautions -Evaluated by PT and rehab is recommended. Patient has been accepted to [facility] -At risk for delirium with her age and being hospitalized CT head on admission negative Mental status back to baseline Hypophosphatemia Hypokalemia Replace electrolytes as needed (2) Leg pain, bilateral: (3) S/P TAVR (transcatheter aortic valve replacement): (4) Anemia: Plan: Chronic Macrocytic anemia No obvious bleeding Monitor CBC -check B12, folate, Iron studies (5) Supratherapeutic INR: Plan: -patient is maintained on coumadin for history of PE, DVT. Coumadin on hold for INR 4 yesterday. INR today 2.9, resume coumadin at 1.5mg daily -Unclear if she needs to remain on anticoagulation indefinitely. And also if she would be a NOAC candidtion--will defer to PCP. (6) CAD (coronary artery disease): Plan: H/O CAD and recent TAVR on plavix, ezetimibe and atorvastatin Appreciate Cardiology Input Plan: Abnormal thyroid function test Elevated TSH normal free T4 Advised to repeat thyroid function test as outpatient Code Status Full code DVT prophylaxis Therapeutic on warfarin currently Disposition Will need Rehab. Accepted at [facility]. Discharge pending medical stability SonMartín, updated on care plan today. All questions were answered Admission and Anticipated Discharge Date Admission Date: May 04, 2021 Subjective Feels well. Denies pain, discomfort She does not remember having a fever. "I think I sleep through it" Physical Exam Physical Exam: sitting in chair, appears comfortable, no acute distress Respiratory: breathing comfortably on room air, no cough, no wheezing Cardiovascular: regular rate and rhythm, no murmurs/rubs/gallops Gastrointestinal (Abdomen): soft, non tender Musculoskeletal: no edema Skin: bruising on extremities but no rash, ulcer or redness noted Neurologic: awake, alert, spontaneously moving extremities Results & Data Results & Data ([facility]) Vital Signs (Past 12 Hours) Vital Signs Temp Pulse Pulse Resp BP BP Pulse Ox 05/13/21 15:57 37.0 C 75 20 115/60 92 05/13/21 15:00 72 05/13/21 11:40 37.5 C 85 20 100/60 90 05/13/21 08:06 39.3 C H 91 H 20 177/64 H 90 05/13/21 07:28 87 Laboratory Results Short CBC 05/13/21 Range/Units 07:04 WBC 7.38 (4.8-10.8) K/uL Hgb 8.7 L (12.0-16.0) g/dL Hct 26.4 L (37-47) % Plt Count 146 (130-400) K/uL BMP 05/13/21 07:04 Sodium 133 L Potassium 3.9 Chloride 104 Carbon Dioxide 20 L BUN 14 Creatinine 0.77 Glucose 90 Calcium 7.9 L Medications Administered Current Inpatient Medications Acetaminophen (Acetaminophen 325 Mg Tab) 650 mg PO TID [facility] Stop: 06/11/21 13:59 Last Admin: 05/13/21 12:40 Dose: 650 mg Documented by: Amlodipine Besylate (Amlodipine Besylate 5 Mg Tab) [address] [facility] Stop: 06/04/21 08:59 Last Admin: 05/13/21 08:05 Dose: 5 mg Documented by: Atorvastatin Calcium (Atorvastatin 40 Mg Tab) [address] [facility] Stop: 06/04/21 08:59 Last Admin: 05/13/21 08:04 Dose: 40 mg Documented by: Clopidogrel Bisulfate (Clopidogrel Bisulfate 75 Mg Tab) [address] [facility] Stop: 06/04/21 08:59 Last Admin: 05/13/21 08:06 Dose: 75 mg Documented by: Ezetimibe (Ezetimibe 10 Mg Tablet) 10 mg PO DAILY [facility] Stop: 06/04/21 08:59 Last Admin: 05/13/21 08:05 Dose: 10 mg Documented by: Folic Acid (Folic Acid 1 Mg Tab) [address] [facility] Stop: 06/04/21 08:59 Last Admin: 05/13/21 08:04 Dose: 2 mg Documented by: Gabapentin (Gabapentin 100 Mg Cap) 200 mg PO TID [facility] Stop: 06/11/21 13:59 Last Admin: 05/13/21 12:41 Dose: 200 mg Documented by: Hydrochlorothiazide (Hydrochlorothiazide 25 Mg Tab) 25 mg PO DAILY PRN PRN Reason: Fluid Retention Stop: 06/03/21 21:12 Leflunomide (Leflunomide 10 Mg Tab) [address] [facility] Stop: 06/04/21 08:59 Last Admin: 05/13/21 08:05 Dose: 20 mg Documented by: Lidocaine (Lidocaine 5% 1 Patch) [address] [facility] Stop: 06/04/21 14:14 Last Admin: 05/13/21 08:05 Dose: 1 patch Documented by: Metoprolol Succinate (Metoprolol Succ 50mg Ext Rel Tab) 50 mg PO BID [facility] Stop: 06/09/21 04:24 Last Admin: 05/13/21 08:06 Dose: 50 mg Documented by: Miscellaneous (Remove Lidoderm Patch) 1 ea N/A DAILY@2100 [facility] Stop: 06/04/21 20:59 Last Admin: 05/12/21 21:08 Dose: 1 ea Documented by: Multivitamins (Multivitamin Tab) 1 tab PO QAM [facility] Stop: 06/04/21 08:59 Last Admin: 05/13/21 08:04 Dose: 1 tab Documented by: Nitroglycerin (Nitroglycerin Sl 0.4 Mg/Tab Tab) 0.4 mg SL UD PRN PRN Reason: Chest Pain Stop: 06/03/21 21:12 Ondansetron HCl (Ondansetron Inj 2 Mg/Ml 2 Ml Vial) 4 mg IV TID PRN PRN Reason: Nausea Stop: 06/05/21 08:21 Last Admin: 05/11/21 22:44 Dose: 4 mg Documented by: Pantoprazole Sodium (Pantoprazole 40 Mg Tab) 40 mg PO DAILY [facility] Stop: 06/04/21 08:59 Last Admin: 05/13/21 08:05 Dose: 40 mg Documented by: Potassium Phosphate (Pot Phosphate Monobasic W/ Sod Tab) 1 tab PO QID [facility] Stop: 06/08/21 12:59 Last Admin: 05/13/21 16:02 Dose: 1 tab Documented by: Prednisone (Prednisone 5 Mg Tab) 5 mg PO QAM [facility] Stop: 06/04/21 08:59 Last Admin: 05/13/21 08:05 Dose: 5 mg Documented by: Ropinirole HCl (Ropinirole Hcl 1 Mg Tablet) 3 mg PO HS PRN PRN Reason: Restless Leg(S) Stop: 06/03/21 21:12 Last Admin: 05/12/21 21:47 Dose: 3 mg Documented by: Saccharomyces Boulardii (Saccharomyces Boulardii 250 Mg Cap) 250 mg PO DAILY [facility] Stop: 06/12/21 08:59 Last Admin: 05/13/21 08:04 Dose: 250 mg Documented by: Sennosides (Senna 8.6 Mg Tab) 8.6 mg PO DAILY [facility] Stop: 06/04/21 08:59 Last Admin: 05/11/21 08:42 Dose: 8.6 mg Documented by: Tramadol HCl (Tramadol Hcl 50 Mg Tablet) 25 mg PO Q4H PRN PRN Reason: moderate/severe pain Stop: 06/05/21 15:31 Last Admin: 05/08/21 07:21 Dose: 25 mg Documented by: Tramadol HCl (Tramadol Hcl 50 Mg Tablet) 25 mg PO Q8H PRN PRN Reason: Pain Stop: 06/09/21 09:59 Last Admin: 05/12/21 12:18 Dose: 25 mg Documented by: Warfarin Sodium (Warfarin Sod 0.5 Mg Tab) 1.5 mg PO DAILY@1600 [facility] Stop: 06/12/21 15:59 Last Admin: 05/13/21 16:30 Dose: 1.5 mg Documented by: (1) Anemia Anemia type: unspecified type Qualified Code(s): D64.9 - Anemia, unspecified
[2021-05-13] MEDS: WARFARIN SOD 0.5 MG TAB PO SCH (16:30)
[2021-05-13 18:03] LABS: Influenza A virus by PCR Negative (Neg); Influenza B virus by PCR Negative (Neg); RSV by PCR Negative (Neg); SARS CoV2 RNA(COVID-19) InHosp NEGATIVE (Negative)
[2021-05-13] MEDS: rOPINIRole HCL 1 MG TABLET PO PRN (20:48)
[2021-05-13] MEDS ORDERED: XOPENEX/ATROVENT 1.25mg/0.5MG NEB COMBO NEB PRN (22:51)
[2021-05-13] MEDS ORDERED: MAGNESIUM SULFATE / D5W 1 GM/100 ML BAG IV ONE (22:52)
[2021-05-13] MEDS ORDERED: PROMETHAZINE HCL 6.25 MG in SODIUM CHLORIDE 0.9% 50 ML IV STA (22:53)
[2021-05-13] MEDS ORDERED: LEVALBUTEROL 1.25MG/0.5ML NEB INH PRN (23:00)
[2021-05-13] MEDS ORDERED: IPRATROPIUM BROMIDE NEB SOLN 0.02% 2.5 ML VIAL INH PRN (23:00)
[2021-05-13] MEDS ORDERED: FUROSEMIDE INJ 20 MG/2 ML VIAL IV ONE (23:30)
[2021-05-14] MEDS ORDERED: ACETAMINOPHEN 500 MG TAB PO STA (00:50)
[2021-05-14] MEDS ORDERED: amLODIPine BESYLATE 5 MG TAB PO SCH (00:55)
[2021-05-14 05:46] LABS: Basophils # (auto) 0.04 K/uL (0-0.2); Basophils % (auto) 0.8 %; Eosinophils # (auto) 0.45 K/uL (0-0.5); Eosinophils % (auto) 9.1 %; Hemoglobin 7.6 g/dL (12.0-16.0); Immature Granulocytes # (auto) 0.01 K/uL (0.00-0.02); Immature Granulocytes % (auto) 0.2 %; Lymphocytes # (auto) 0.69 K/uL (1.2-3.4); Mean Corpuscular Hemoglobin 34.4 pg (25-34); Mean Corpuscular Hgb Conc 31.7 g/dL (32-36); Mean Corpuscular Volume 108.6 fL (80-100); Mean Platelet Volume 10.6 fL (7.4-10.4); Monocytes # (auto) 0.69 K/uL (0.11-0.59); Neutrophils # (auto) 3.05 K/uL (1.4-6.5); Neutrophils % (auto) 61.9 %; Platelet Count 118 K/uL (130-400); RDW Coefficient of Variation 19.3 % (11.5-14.5); RDW Standard Deviation 74.7 fL (36.4-46.3); Red Blood Count 2.21 M/uL (4.2-5.4); White Blood Count 4.93 K/uL (4.8-10.8)
[2021-05-14 05:57] LABS: BUN Creatinine Ratio 19.3 (10-20); Calcium 7.5 mg/dl (8.5-10.1); Est GFR (African American) 71.4 ml/min; Est GFR (Non-African American) 61.6 ml/min; Magnesium 2.1 mg/dl (1.7-2.4); Potassium 3.6 mmol/L (3.5-5.1)
[2021-05-14 06:10] LABS: Polychromasia 1+
[2021-05-14 06:24] LABS: Folate (Folic Acid) 19.63 ng/ml (>5.38)
--- NOTE | 2021-05-14 08:36 | XRay Report ---
SINGLE VIEW CHEST CLINICAL HISTORY: Hypoxia. FINDINGS: An AP, portable, upright chest radiograph is compared to study dated 05/08/2021. Correlation is made with chest CT dated 05/31/2019. The examination is degraded by portable technique and patient rotation. There is evidence of previous cardiac valve surgery. The heart is enlarged noting atheroscl erotic calcification of the thoracic aorta. There is pulmonary vascular congestion. There are mild kenr zy bilateral airspace opacities. Trace pleural effusions are suspected. No pneumothorax is seen. The skeletal structures are osteopenic. The bony thorax is grossly intact. IMPRESSION: 1. Cardiomegaly with evidence of congestive failure. 2. Hazy bilateral airspace opacities likely represent pulmonary edema. Correlate clinically for evide nce of a superimposed infectious/inflammatory pneumonitis. Radiographic follow-up to resolution is re commended. 3. Trace pleural effusions. ACT 112: Negative or not required by law. Electronically signed by: Vitaliy Tate M.D. 05/14/2021 8:34 AM
[2021-05-14] MEDS ORDERED: FUROSEMIDE 40 MG/4 ML VIAL IV ONE (08:47)
--- NOTE | 2021-05-14 08:50 | Hospitalist Progress Note ---
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 No further diarrheal episodes. PO vancomycin discontinued -Consider drug fever, she has been on ceftriaxone for extended period of time. Will monitor off all antibiotics -Consideration of VTE is low likelihood, she is on coumadin and was supratherapeutic -Covid test 05/04 negative, repeat Covid 05/13 neg, Flu/RSV negative 05/13 -CXR 05/13- shows CHF, hazy airspace opacities likely represent pulmonary edema but could represent infectious/inflammatory pneumonitis, trace pleural effusions. (see below) -consider ID consult Abnormal CXR findings Acute hypoxic respiratory failure -overnight 88% on RA. received lasix 20mg IV overnight then another lasix 40mg IV this morning -check BNP -CT chest shows evidence of volume overload but no pneumonia. will reassess fluid balance tomorrow -Procalcitonin mildly elevated at 0.71 (previously neg). Bilateral leg pain Mod-severe spinal stenosis L2 subacute to acute mild compression fracture H/O ongoing leg pain and back pain which gradually worsened for past 2 -4 weeks -MRI lumbar spine results below -Appreciate Ortho input, with her recent UTI and ongoing fever. She is not a surgical candidate -Improved with changes in pain regimen: scheduled tylenol 650mg TID, increased Gabapentin to 200mg TID, continue tramadol and lidoderm patch -will continue with PT IMPRESSION: 1. Severely motion compromised examination. 2. There is a mild acute superior end plate compression fracture of L2. Marrow edema suggests this is acute to subacute. 3. There is a 13 mm superiorly extruded disc fragment at T10-T11. 4. There is moderate to severe central canal stenosis at L2-L3. 5. Postoperative and spondylotic change at additional levels as above. See discussion for detailed level by level analysis. Presyncopal Episode -Likely vasovagal given episode occurring after bowel movement -No loss of consciousness -Fall Precautions -Evaluated by PT and rehab is recommended. Patient has been accepted to [facility] -At risk for delirium with her age and being hospitalized CT head on admission negative Mental status back to baseline Hypophosphatemia Hypokalemia Replace electrolytes as needed (2) Leg pain, bilateral: (3) S/P TAVR (transcatheter aortic valve replacement): (4) Anemia: Plan: Chronic Macrocytic anemia No obvious bleeding Monitor CBC - B12-- normal, folate--normal, Iron studies--low -will start PO iron (5) Supratherapeutic INR: Plan: -patient is maintained on coumadin for history of PE, DVT. Coumadin on hold for INR 4 previously. INR yesterday 2.9 -continue coumadin at 1.5mg daily -Unclear if she needs to remain on anticoagulation indefinitely. And also if she would be a NOAC candidtion--will defer to PCP. -repeat INR tomorrow (6) CAD (coronary artery disease): Plan: H/O CAD and recent TAVR on plavix, ezetimibe and atorvastatin Appreciate Cardiology Input Plan: Abnormal thyroid function test Elevated TSH normal free T4 Advised to repeat thyroid function test as outpatient Code Status Full code DVT prophylaxis Therapeutic on warfarin currently Disposition Will need Rehab. Accepted at [facility]. Discharge pending medical stability Martín Montoya, updated on care plan yesterday. All questions were answered Admission and Anticipated Discharge Date Admission Date: May 04, 2021 Subjective Fever overnight to 39.3 Overnight also required 2L NC due to O2sat down to 88% on RA Received lasix 20mg IV ovrnight and 40mg IV this morning Patient herself with no complaints other than her lower back pain which is tolerable at present Physical Exam Physical Exam: appears well, no acute distress, pleasant and comfortable Respiratory: breathing comfortably, no wheezing/rhonchi/rales Cardiovascular: regular rate and rhythm, no murmurs/rubs/gallops Gastrointestinal (Abdomen): soft,non tender, non distended Musculoskeletal: no edema Neurologic: awake, alert, spontaneously moving extremities Results & Data Results & Data ([facility]) Vital Signs (Past 12 Hours) Vital Signs Temp Pulse Pulse Resp BP Pulse Ox 05/14/21 08:13 82 05/14/21 07:47 37.4 C 81 18 128/68 97 05/14/21 04:12 37.4 C 05/14/21 02:52 38.8 C H 79 20 134/57 L 96 05/14/21 00:45 39.3 C H 05/13/21 22:46 93 H 05/13/21 22:31 39.3 C H 96 H 18 185/69 H 92 Laboratory Results Short CBC 05/14/21 Range/Units 05:26 WBC 4.93 (4.8-10.8) K/uL Hgb 7.6 L (12.0-16.0) g/dL Hct 24.0 L (37-47) % Plt Count 118 L (130-400) K/uL BMP 05/14/21 05:26 Sodium 134 L Potassium 3.6 Chloride 103 Carbon Dioxide 24 BUN 17 Creatinine 0.88 Glucose 96 Calcium 7.5 L Procalcitonin: 0.19--> 0.71 Diagnostic Findings CXR 05/13: IMPRESSION: 1. Cardiomegaly with evidence of congestive failure. 2. Hazy bilateral airspace opacities likely represent pulmonary edema. Correlate clinically for evidence of a superimposed infectious/inflammatory pneumonitis. Radiographic follow-up to resolution is recommended. 3. Trace pleural effusions Medications Administered Current Inpatient Medications Acetaminophen (Acetaminophen 325 Mg Tab) 650 mg PO TID [facility] Stop: 06/11/21 13:59 Last Admin: 05/13/21 20:46 Dose: 650 mg Documented by: Amlodipine Besylate (Amlodipine Besylate 5 Mg Tab) 5 mg PO QAM [facility] Stop: 06/13/21 08:59 Atorvastatin Calcium (Atorvastatin 40 Mg Tab) 40 mg PO QAM [facility] Stop: 06/04/21 08:59 Last Admin: 05/13/21 08:04 Dose: 40 mg Documented by: Clopidogrel Bisulfate (Clopidogrel Bisulfate 75 Mg Tab) 75 mg PO QAM [facility] Stop: 06/04/21 08:59 Last Admin: 05/13/21 08:06 Dose: 75 mg Documented by: Ezetimibe (Ezetimibe 10 Mg Tablet) 10 mg PO DAILY [facility] Stop: 06/04/21 08:59 Last Admin: 05/13/21 08:05 Dose: 10 mg Documented by: Folic Acid (Folic Acid 1 Mg Tab) 2 mg PO QAM [facility] Stop: 06/04/21 08:59 Last Admin: 05/13/21 08:04 Dose: 2 mg Documented by: Furosemide (Furosemide 40 Mg/4 Ml Vial) 40 mg IV ONE ONE Stop: 05/14/21 08:48 Gabapentin (Gabapentin 100 Mg Cap) 200 mg PO TID [facility] Stop: 06/11/21 13:59 Last Admin: 05/13/21 20:47 Dose: 200 mg Documented by: Hydrochlorothiazide (Hydrochlorothiazide 25 Mg Tab) 25 mg PO DAILY PRN PRN Reason: Fluid Retention Stop: 06/03/21 21:12 Ipratropium Buhler (Ipratropium Buhler Neb Soln 0.02% 2.5 Ml Vial) 0.5 mg INH Q4H PRN PRN Reason: Shortness Of Breath Or Wheezing Stop: 06/12/21 22:59 Leflunomide (L[facility] 10 Mg Tab) [facility] [place]: 06/04/21 08:59 Last Admin: 05/13/21 08:05 Dose: 20 mg Documented by: Levalbuterol HCl (Levalbuterol 1.25mg/0.5ml Neb) 1.25 mg INH Q4H PRN PRN Reason: Shortness Of Breath Or Wheezing Stop: 06/12/21 22:59 Lidocaine (Lidocaine 5% 1 Patch) 1 patch TD [facility] Stop: 06/04/21 14:14 Last Admin: 05/13/21 08:05 Dose: 1 patch Documented by: Metoprolol Succinate (Metoprolol Succ 50mg Ext Rel Tab) 50 mg PO BID [facility] Stop: 06/09/21 04:24 Last Admin: 05/13/21 20:50 Dose: 50 mg Documented by: Miscellaneous (Remove Lidoderm Patch) 1 ea N/A DAILY@2100 [facility] Stop: 06/04/21 20:59 Last Admin: 05/13/21 20:51 Dose: Not Given Documented by: Multivitamins (Multivitamin Tab) [facility] [place] [facility] [place]: 06/04/21 08:59 Last Admin: 05/13/21 08:04 Dose: 1 tab Documented by: Nitroglycerin (Nitroglycerin Sl 0.4 Mg/Tab Tab) 0.4 mg SL UD PRN PRN Reason: Chest Pain Stop: 06/03/21 21:12 Ondansetron HCl (Ondansetron Inj 2 Mg/Ml 2 Ml Vial) 4 mg IV TID PRN PRN Reason: Nausea Stop: 06/05/21 08:21 Last Admin: 05/11/21 22:44 Dose: 4 mg Documented by: Pantoprazole Sodium (Pantoprazole 40 Mg Tab) 40 mg PO DAILY [facility] Stop: 06/04/21 08:59 Last Admin: 05/13/21 08:05 Dose: 40 mg Documented by: Potassium Phosphate (Pot Phosphate Monobasic W/ Sod Tab) 1 tab PO QID [facility] Stop: 06/08/21 12:59 Last Admin: 05/13/21 20:50 Dose: 1 tab Documented by: Prednisone (Prednisone 5 Mg Tab) 5 mg PO QAM [facility] Stop: 06/04/21 08:59 Last Admin: 05/13/21 08:05 Dose: 5 mg Documented by: Ropinirole HCl (Ropinirole Hcl 1 Mg Tablet) 3 mg PO HS PRN PRN Reason: Restless Leg(S) Stop: 06/03/21 21:12 Last Admin: 05/13/21 20:48 Dose: 3 mg Documented by: Saccharomyces Boulardii (Saccharomyces Boulardii 250 Mg Cap) 250 mg PO DAILY [facility] Stop: 06/12/21 08:59 Last Admin: 05/13/21 08:04 Dose: 250 mg Documented by: Sennosides (Senna 8.6 Mg Tab) 8.6 mg PO DAILY [facility] Stop: 06/04/21 08:59 Last Admin: 05/11/21 08:42 Dose: 8.6 mg Documented by: Tramadol HCl (Tramadol Hcl 50 Mg Tablet) 25 mg PO Q4H PRN PRN Reason: moderate/severe pain Stop: 06/05/21 15:31 Last Admin: 05/08/21 07:21 Dose: 25 mg Documented by: Tramadol HCl (Tramadol Hcl 50 Mg Tablet) 25 mg PO Q8H PRN PRN Reason: Pain Stop: 06/09/21 09:59 Last Admin: 05/12/21 12:18 Dose: 25 mg Documented by: Warfarin Sodium (Warfarin Sod 0.5 Mg Tab) 1.5 mg PO DAILY@1600 [facility] Stop: 06/12/21 15:59 Last Admin: 05/13/21 16:30 Dose: 1.5 mg Documented by: (1) Anemia Anemia type: unspecified type Qualified Code(s): D64.9 - Anemia, unspecified
[2021-05-14] MEDS: EZETIMIBE 10 MG TABLET PO SCH (09:09)
[2021-05-14] MEDS: GABAPENTIN 100 MG CAP PO SCH ×3 (09:09→20:21)
[2021-05-14] MEDS: CLOPIDOGREL BISULFATE 75 MG TAB PO SCH (09:09)
[2021-05-14] MEDS: FOLIC ACID 1 MG TAB PO SCH (09:09)
[2021-05-14] MEDS: ACETAMINOPHEN 325 MG TAB PO SCH ×3 (09:09→20:22)
[2021-05-14] MEDS: ATORVASTATIN 40 MG TAB PO SCH (09:09)
[2021-05-14] MEDS: amLODIPine BESYLATE 5 MG TAB PO SCH (09:09)
[2021-05-14] MEDS: PANTOprazole 40 MG TAB PO SCH (09:10)
[2021-05-14] MEDS: LIDOCAINE 5% 1 PATCH TD SCH (09:10)
[2021-05-14] MEDS: METOPROLOL SUCC 50MG EXT REL TAB PO SCH ×2 (09:10→20:23)
[2021-05-14] MEDS: LEFLUNOMIDE 10 MG TAB PO SCH (09:10)
[2021-05-14] MEDS: MULTIVITAMIN TAB PO SCH (09:10)
[2021-05-14] MEDS: SACCHAROMYCES BOULARDII 250 MG CAP PO SCH (09:11)
[2021-05-14] MEDS: predniSONE 5 MG TAB PO SCH (09:11)
[2021-05-14] MEDS: POT PHOSPHATE MONOBASIC W/ SOD TAB PO SCH ×4 (09:11→20:23)
--- NOTE | 2021-05-14 10:12 | CT Scan Report ---
CT chest diagnostic wo con CLINICAL HISTORY: hypoxia, abnormal CXR with bilateral airspace opacities present. COMPARISON STUDY: Portable chest from 05/13/[address] chest from 05/31/2019 CT DOSE: 152.93 mGy.cm TECHNIQUE: Standard CT of the Chest was performed without IV contrast. A dose lowering technique was utilized adhering to the principles of ALARA. FINDINGS: Airway: The airway is clear. No endobronchial lesion is identified. Lungs: Compared to the portable chest radiograph, mild diffuse haziness is seen throughout both lungs with indistinctness of the central hilar vessels. Findings are characteristic of vascular congestion and early pulmonary edema. The lungs are otherwise clear of acute alveolar opacities, air bronchograms or pulmonary nodules. Pleura: There is no evidence for pleural effusion. There is no evidence for pneumothorax. Mediastinum: There is no evidence for pathologic adenopathy on these limited noncontrast images. Hear t size is mildly enlarged. The patient is status post aortic valve replacement. Coronary artery calci fications present. The thoracic aorta is within normal limits. Atherosclerotic calcification is prese nt. There is no evidence for pericardial effusion. Upper abdomen: The adrenal glands are normal bilaterally. There is evidence for bilateral nonobstruct ing renal calculi. Osseous structures: There is no acute osseous pathology. IMPRESSION: 1. CT confirms the presence of mild central vascular congestion and early pulmonary edema. 2. No confluent alveolar opacities. 3. Coronary artery calcification and previous aortic valve replacement. 4. Bilateral nonobstructing renal calculi. ACT 112: Negative or not required by law. Electronically signed by: Speedy Caicedo M.D. 05/14/2021 10:10 AM
[2021-05-14] MEDS: traMADol HCL 50 MG TABLET PO PRN (10:30)
[2021-05-14 11:06] LABS: INR 2.4 (0.9-1.1); Prothrombin Time 22.6 Seconds (9.0-12.0)
--- NOTE | 2021-05-14 14:06 | Cardiology Progress Note ---
Date of Service May 14, 2021 Assessment & Plan (1) Acute on chronic heart failure with preserved ejection fraction (HFpEF): (2) S/P TAVR (transcatheter aortic valve replacement): (3) Lumbar disc herniation with radiculopathy: (4) Anemia: Plan: -With regards to fever, resume diet and observe off of antibiotics. I agree with furosemide as administered last night and again this morning. Reassess volume status 05/15/2021. Blood cultures negative. E. coli appears to be contamination in the urine, completed course of Rocephin. MRI findings of disc herniation explain her presenting symptoms. She is on Coumadin on a chronic basis due to past history of venous thromboembolic event. Coumadin has been on hold due to high INRs, trending down to 2.4 at present. Admission and Anticipated Discharge Date Admission Date: May 04, 2021 Subjective Patient seen in cardiology follow-up. Still with intermittent low-grade fevers most recently this morning. Subjectively diarrhea is improved. Chest CT performed due to concerns of possible aspiration pneumonia/pneumonitis, with findings of pulmonary edema, she received a dose of furosemide last evening and again today. Physical Exam Physical Exam: Temp Pulse Resp BP Pulse Ox 37.5 C 80 16 101/58 L 95 05/14/21 11:13 05/14/21 11:13 05/14/21 11:13 05/14/21 11:13 05/14/21 11:13 Constitutional: WD/WN, vitals as above Respiratory: Mild crackles at the bases Cardiovascular: RRR, no murmur, no edema Gastrointestinal (Abdomen): normal bowel sounds, soft, nontender, no hepatosplenomegaly Neurologic: PERRL, EOMI, accommodation nl, no face palsy, no dysarthria Results & Data ([facility]) Vital Signs (Past 12 Hours) Vital Signs Temp Pulse Pulse Resp BP Pulse Ox 05/14/21 11:13 37.5 C 80 16 101/58 L 95 05/14/21 08:13 82 05/14/21 07:47 37.4 C 81 18 128/68 97 05/14/21 04:12 37.4 C 05/14/21 02:52 38.8 C H 79 20 134/57 L 96 (1) Anemia Anemia type: unspecified type Qualified Code(s): D64.9 - Anemia, unspecified
[2021-05-14] MEDS: WARFARIN SOD 0.5 MG TAB PO SCH (16:29)
[2021-05-14] MEDS: FERROUS SULFATE 325 MG TAB PO SCH (16:56)
[2021-05-14] MEDS: rOPINIRole HCL 1 MG TABLET PO PRN (20:22)
[2021-05-15 07:15] LABS: Basophils # (auto) 0.11 K/uL (0-0.2); Basophils % (auto) 1.8 %; Eosinophils # (auto) 0.51 K/uL (0-0.5); Eosinophils % (auto) 8.4 %; Hematocrit (blood only) 28.4 % (37-47); Hemoglobin 8.9 g/dL (12.0-16.0); Immature Granulocytes # (auto) 0.03 K/uL (0.00-0.02); Immature Granulocytes % (auto) 0.5 %; Lymphocytes # (auto) 0.73 K/uL (1.2-3.4); Mean Corpuscular Hemoglobin 34.5 pg (25-34); Mean Corpuscular Hgb Conc 31.3 g/dL (32-36); Mean Corpuscular Volume 110.1 fL (80-100); Mean Platelet Volume 11.3 fL (7.4-10.4); Monocytes # (auto) 0.77 K/uL (0.11-0.59); Monocytes % (auto) 12.6 %; Neutrophils # (auto) 3.95 K/uL (1.4-6.5); Neutrophils % (auto) 64.7 %; Platelet Count 159 K/uL (130-400); RDW Coefficient of Variation 19.4 % (11.5-14.5); RDW Standard Deviation 77.4 fL (36.4-46.3); Red Blood Count 2.58 M/uL (4.2-5.4)
[2021-05-15 07:29] LABS: INR 2.5 (0.9-1.1); Prothrombin Time 23.6 Seconds (9.0-12.0)
[2021-05-15 07:34] LABS: Anisocytosis Present; Macrocytosis Present
[2021-05-15 07:35] LABS: BUN Creatinine Ratio 21.8 (10-20); Calcium 7.8 mg/dl (8.5-10.1); Creatinine Clr Calc Pharmacy 30.9 ml/min; Est GFR (African American) 54.5 ml/min; Magnesium 2.2 mg/dl (1.7-2.4); Potassium 3.8 mmol/L (3.5-5.1)
[2021-05-15] MEDS: ACETAMINOPHEN 325 MG TAB PO SCH ×3 (08:11→21:13)
[2021-05-15] MEDS: FERROUS SULFATE 325 MG TAB PO SCH ×2 (08:12→16:45)
[2021-05-15] MEDS: ONDANSETRON INJ 2 MG/ML 2 ML VIAL IV PRN (08:14)
[2021-05-15] MEDS: ATORVASTATIN 40 MG TAB PO SCH (09:10)
[2021-05-15] MEDS: amLODIPine BESYLATE 5 MG TAB PO SCH (09:10)
[2021-05-15] MEDS: MULTIVITAMIN TAB PO SCH (09:10)
[2021-05-15] MEDS: FOLIC ACID 1 MG TAB PO SCH (09:10)
[2021-05-15] MEDS: EZETIMIBE 10 MG TABLET PO SCH (09:10)
[2021-05-15] MEDS: LEFLUNOMIDE 10 MG TAB PO SCH (09:10)
[2021-05-15] MEDS: predniSONE 5 MG TAB PO SCH (09:10)
[2021-05-15] MEDS: GABAPENTIN 100 MG CAP PO SCH ×3 (09:10→21:14)
[2021-05-15] MEDS: CLOPIDOGREL BISULFATE 75 MG TAB PO SCH (09:10)
[2021-05-15] MEDS: SACCHAROMYCES BOULARDII 250 MG CAP PO SCH (09:10)
[2021-05-15] MEDS: METOPROLOL SUCC 50MG EXT REL TAB PO SCH ×2 (09:10→21:14)
[2021-05-15] MEDS: PANTOprazole 40 MG TAB PO SCH (09:10)
[2021-05-15] MEDS: LIDOCAINE 5% 1 PATCH TD SCH (09:10)
[2021-05-15] MEDS: POT PHOSPHATE MONOBASIC W/ SOD TAB PO SCH ×4 (09:10→21:14)
[2021-05-15 13:03] LABS: Appearance Urine Clear (Clear); Bilirubin Urine Negative (Negative); Blood Urine Negative (Negative); Color Urine Yellow; Glucose Urine UA Negative (Negative); Ketones Urine Negative (Negative); Leukocyte Esterase Urine Negative (Negative); Nitrite Urine Negative (Negative); Protein Urine Negative (Negative); Specific Gravity Urine 1.013 (1.000-1.030); Urobilinogen Urine Negative (Negative); pH Urine 5.5 (4.5-7.5)
[2021-05-15 14:05] LABS: Lyme Ab IgG w/WB Rflx Negative (Negative)
[2021-05-15 14:26] LABS: Lyme Ab IgM w/WB Rflx Equivocal (Negative)
[2021-05-15] MEDS: WARFARIN SOD 0.5 MG TAB PO SCH (16:44)
--- NOTE | 2021-05-15 17:45 | Hospitalist Progress Note ---
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 Patient now with loose stools again -Consider drug fever, she has been on ceftriaxone for extended period of time however, remains febrile even while off antibiotics -Consideration of VTE is low likelihood, she is on coumadin and was supratherapeutic -Covid test 05/04 negative, repeat Covid 05/13 neg, Flu/RSV negative 05/13 -CXR 05/13- shows CHF, hazy airspace opacities likely represent pulmonary edema but could represent infectious/inflammatory pneumonitis, trace pleural effusions. Follow up CT chest shows CHF. -Appreciate ID input, will treat for presumed C diff infection. Fidaxomicin 200mg BID x 10 days Acute on chronic diastolic CHF Acute hypoxic respiratory failure -desat down to 88% on RA. received lasix 20mg IV then lasix 40mg IV -appears euvolemic currently Bilateral leg pain Mod-severe spinal stenosis L2 subacute to acute mild compression fracture H/O ongoing leg pain and back pain which gradually worsened for past 2 -4 weeks -MRI lumbar spine results below -Appreciate Ortho input, with her recent UTI and ongoing fever. She is not a surgical candidate -Improved with changes in pain regimen: scheduled tylenol 650mg TID, increased Gabapentin to 200mg TID, continue tramadol and lidoderm patch -will continue with PT IMPRESSION: 1. Severely motion compromised examination. 2. There is a mild acute superior end plate compression fracture of L2. Marrow edema suggests this is acute to subacute. 3. There is a 13 mm superiorly extruded disc fragment at T10-T11. 4. There is moderate to severe central canal stenosis at L2-L3. 5. Postoperative and spondylotic change at additional levels as above. See discussion for detailed level by level analysis. Presyncopal Episode -Likely vasovagal given episode occurring after bowel movement -No loss of consciousness -Fall Precautions -Evaluated by PT and rehab is recommended. Patient has been accepted to [facility] -At risk for delirium with her age and being hospitalized CT head on admission negative Mental status back to baseline Hypophosphatemia Hypokalemia Replace electrolytes as needed (2) Leg pain, bilateral: (3) S/P TAVR (transcatheter aortic valve replacement): (4) Anemia: Plan: Chronic Macrocytic anemia No obvious bleeding Monitor CBC - B12-- normal, folate--normal, Iron studies--low -will start PO iron (5) Supratherapeutic INR: Plan: -patient is maintained on coumadin for history of PE, DVT. -continue coumadin at 1.5mg daily -Unclear if she needs to remain on anticoagulation indefinitely. And also if she would be a NOAC candidtion--will defer to PCP. -INR 2.5 today, monitor while on antibiotics (6) CAD (coronary artery disease): Plan: H/O CAD and recent TAVR on plavix, ezetimibe and atorvastatin Appreciate Cardiology Input Plan: Abnormal thyroid function test Elevated TSH normal free T4 Advised to repeat thyroid function test as outpatient Code Status Full code DVT prophylaxis Therapeutic on warfarin currently Disposition Will need Rehab. Accepted at [facility]. Discharge pending medical stability Admission and Anticipated Discharge Date Admission Date: May 04, 2021 Subjective Ongoing fevers Nursing reports loose stools. Patient incontinent of stool Physical Exam Physical Exam: Appears flushed, non toxic but weak ENMT: normocephalic, atraumatic Neck: thick, supple Respiratory: breathing comfortably on room air, no wheezing/rhonchi/rales Cardiovascular: regular rate and rhythm, no murmurs/rubs/gallops Gastrointestinal (Abdomen): soft, non tender Musculoskeletal: no edema Skin: no ulcer noted on back, no rash noted on exposed skin Neurologic: awake, alert, spontaneously moving extremities Psychiatric: affect normal Results & Data Results & Data ([facility]) Vital Signs (Past 12 Hours) Vital Signs Temp Pulse Pulse Resp BP Pulse Ox 05/15/21 16:03 85 05/15/21 15:39 37.3 C 83 18 105/65 91 05/15/21 10:15 38.2 C H 05/15/21 07:44 73 05/15/21 07:00 38.2 C H 76 20 188/51 H 98 Laboratory Results Short CBC 05/15/21 Range/Units 06:47 WBC 6.10 (4.8-10.8) K/uL Hgb 8.9 L (12.0-16.0) g/dL Hct 28.4 L (37-47) % Plt Count 159 (130-400) K/uL BMP 05/15/21 06:47 Sodium 136 Potassium 3.8 Chloride 101 Carbon Dioxide 27 BUN 24 H Creatinine 1.10 Glucose 96 Calcium 7.8 L Urine 05/15/21 Range/Units 12:20 Urine Color Yellow Urine Appearance Clear (Clear) Urine pH 5.5 (4.5-7.5) Ur Specific [place] 1.013 (1.000-1.030) Urine Protein Negative (Negative) Urine Glucose (UA) Negative (Negative) Medications Administered Current Inpatient Medications Acetaminophen (Acetaminophen 325 Mg Tab) 650 mg PO TID [facility] Stop: 06/11/21 13:59 Last Admin: 05/15/21 13:59 Dose: 650 mg Documented by: Amlodipine Besylate (Amlodipine Besylate 5 Mg Tab) 5 [facility] [place] Stop: 06/13/21 08:59 Last Admin: 05/15/21 09:10 Dose: 5 mg Documented by: Atorvastatin Calcium (Atorvastatin 40 Mg Tab) 40 mg PO QAM [facility] Stop: 06/04/21 08:59 Last Admin: 05/15/21 09:10 Dose: 40 mg Documented by: Clopidogrel Bisulfate (Clopidogrel Bisulfate 75 Mg Tab) 75 mg PO QAM [facility] Stop: 06/04/21 08:59 Last Admin: 05/15/21 09:10 Dose: 75 mg Documented by: Ezetimibe (Ezetimibe 10 Mg Tablet) 10 mg PO DAILY [facility] Stop: 06/04/21 08:59 Last Admin: 05/15/21 09:10 Dose: 10 mg Documented by: Ferrous Sulfate (Ferrous Sulfate 325 Mg Tab) 325 mg PO BIDM [facility] Stop: 06/13/21 16:59 Last Admin: 05/15/21 16:45 Dose: 325 mg Documented by: Fidaxomicin (Fidaxomicin 200 Mg Tab) 200 mg PO BID [facility] Stop: 05/25/21 09:01 Folic Acid (Folic Acid 1 Mg Tab) 2 mg PO QAM [facility] Stop: 06/04/21 08:59 Last Admin: 05/15/21 09:10 Dose: 2 mg Documented by: Gabapentin (Gabapentin 100 Mg Cap) 200 mg PO TID [facility] Stop: 06/11/21 13:59 Last Admin: 05/15/21 13:59 Dose: 200 mg Documented by: Hydrochlorothiazide (Hydrochlorothiazide 25 Mg Tab) 25 mg PO DAILY PRN PRN Reason: Fluid Retention Stop: 06/03/21 21:12 Ipratropium [place] (Ipratropium [place] Neb Soln 0.02% 2.5 Ml Vial) 0.5 mg INH Q4H PRN PRN Reason: Shortness Of Breath Or Wheezing Stop: 06/12/21 22:59 Leflunomide (Leflunomide 10 Mg Tab) 20 mg PO [facility] Stop: 06/04/21 08:59 Last Admin: 05/15/21 09:10 Dose: 20 mg Documented by: Levalbuterol HCl (Levalbuterol 1.25mg/0.5ml Neb) 1.25 mg INH Q4H PRN PRN Reason: Shortness Of Breath Or Wheezing Stop: 06/12/21 22:59 Lidocaine (Lidocaine 5% 1 Patch) 1 patch TD [facility] Stop: 06/04/21 14:14 Last Admin: 05/15/21 09:10 Dose: 1 patch Documented by: Metoprolol Succinate (Metoprolol Succ 50mg Ext Rel Tab) 50 mg PO BID [facility] Stop: 06/09/21 04:24 Last Admin: 05/15/21 09:10 Dose: 50 mg Documented by: Miscellaneous (Remove Lidoderm Patch) 1 ea N/A DAILY@2100 [facility] Stop: 06/04/21 20:59 Last Admin: 05/14/21 20:21 Dose: 1 ea Documented by: Multivitamins (Multivitamin Tab) 1 tab PO [facility] Stop: 06/04/21 08:59 Last Admin: 05/15/21 09:10 Dose: 1 tab Documented by: Nitroglycerin (Nitroglycerin Sl 0.4 Mg/Tab Tab) 0.4 mg SL UD PRN PRN Reason: Chest Pain Stop: 06/03/21 21:12 Ondansetron HCl (Ondansetron Inj 2 Mg/Ml 2 Ml Vial) 4 mg IV TID PRN PRN Reason: Nausea Stop: 06/05/21 08:21 Last Admin: 05/15/21 08:14 Dose: 4 mg Documented by: Pantoprazole Sodium (Pantoprazole 40 Mg Tab) 40 mg PO DAILY [facility] Stop: 06/04/21 08:59 Last Admin: 05/15/21 09:10 Dose: 40 mg Documented by: Potassium Phosphate (Pot Phosphate Monobasic W/ Sod Tab) 1 tab PO QID [facility] Stop: 06/08/21 12:59 Last Admin: 05/15/21 16:45 Dose: 1 tab Documented by: Prednisone (Prednisone 5 Mg Tab) 5 mg PO QAM [facility] Stop: 06/04/21 08:59 Last Admin: 05/15/21 09:10 Dose: 5 mg Documented by: Ropinirole HCl (Ropinirole Hcl 1 Mg Tablet) 3 mg PO HS PRN PRN Reason: Restless Leg(S) Stop: 06/03/21 21:12 Last Admin: 05/14/21 20:22 Dose: 3 mg Documented by: Saccharomyces Boulardii (Saccharomyces Boulardii 250 Mg Cap) 250 mg PO DAILY [facility] Stop: 06/12/21 08:59 Last Admin: 05/15/21 09:10 Dose: 250 mg Documented by: Sennosides (Senna 8.6 Mg Tab) 8.6 mg PO DAILY [facility] Stop: 06/04/21 08:59 Last Admin: 05/11/21 08:42 Dose: 8.6 mg Documented by: Tramadol HCl (Tramadol Hcl 50 Mg Tablet) 25 mg PO Q4H PRN PRN Reason: moderate/severe pain Stop: 06/05/21 15:31 Last Admin: 05/08/21 07:21 Dose: 25 mg Documented by: Tramadol HCl (Tramadol Hcl 50 Mg Tablet) 25 mg PO Q8H PRN PRN Reason: Pain Stop: 06/09/21 09:59 Last Admin: 05/14/21 10:30 Dose: 25 mg Documented by: Warfarin Sodium (Warfarin Sod 0.5 Mg Tab) 1.5 mg PO DAILY@1600 [facility] Stop: 06/12/21 15:59 Last Admin: 05/15/21 16:44 Dose: 1.5 mg Documented by: (1) Anemia Anemia type: unspecified type Qualified Code(s): D64.9 - Anemia, unspecified
[2021-05-15] MEDS: FIDAXOMICIN 200 MG TAB PO SCH (21:14)
[2021-05-16] MEDS: rOPINIRole HCL 1 MG TABLET PO PRN ×2 (02:20→21:34)
[2021-05-16] MEDS: EZETIMIBE 10 MG TABLET PO SCH (07:44)
[2021-05-16] MEDS: CLOPIDOGREL BISULFATE 75 MG TAB PO SCH (07:45)
[2021-05-16] MEDS: PANTOprazole 40 MG TAB PO SCH (07:45)
[2021-05-16] MEDS: ACETAMINOPHEN 325 MG TAB PO SCH ×3 (07:45→21:34)
[2021-05-16] MEDS: SACCHAROMYCES BOULARDII 250 MG CAP PO SCH (07:45)
[2021-05-16] MEDS: MULTIVITAMIN TAB PO SCH (07:45)
[2021-05-16] MEDS: FOLIC ACID 1 MG TAB PO SCH (07:45)
[2021-05-16] MEDS: GABAPENTIN 100 MG CAP PO SCH ×3 (07:46→21:34)
[2021-05-16] MEDS: amLODIPine BESYLATE 5 MG TAB PO SCH (07:47)
[2021-05-16] MEDS: predniSONE 5 MG TAB PO SCH (07:47)
[2021-05-16] MEDS: ATORVASTATIN 40 MG TAB PO SCH (07:47)
[2021-05-16] MEDS: LEFLUNOMIDE 10 MG TAB PO SCH (07:47)
[2021-05-16] MEDS: POT PHOSPHATE MONOBASIC W/ SOD TAB PO SCH ×4 (07:47→21:34)
[2021-05-16] MEDS: METOPROLOL SUCC 50MG EXT REL TAB PO SCH ×2 (07:47→21:34)
[2021-05-16] MEDS: LIDOCAINE 5% 1 PATCH TD SCH (07:48)
[2021-05-16] MEDS: FERROUS SULFATE 325 MG TAB PO SCH ×2 (07:48→16:26)
[2021-05-16] MEDS: FIDAXOMICIN 200 MG TAB PO SCH ×2 (07:54→21:34)
[2021-05-16 08:54] LABS: Hematocrit (blood only) 26.4 % (37-47); Hemoglobin 8.6 g/dL (12.0-16.0); Mean Corpuscular Hemoglobin 35.1 pg (25-34); Mean Corpuscular Hgb Conc 32.6 g/dL (32-36); Mean Corpuscular Volume 107.8 fL (80-100); Mean Platelet Volume 11.2 fL (7.4-10.4); Platelet Count 167 K/uL (130-400); RDW Coefficient of Variation 19.1 % (11.5-14.5); RDW Standard Deviation 74.7 fL (36.4-46.3); Red Blood Count 2.45 M/uL (4.2-5.4); White Blood Count 6.11 K/uL (4.8-10.8)
[2021-05-16 09:05] LABS: INR 3.2 (0.9-1.1); Prothrombin Time 29.5 Seconds (9.0-12.0)
[2021-05-16 09:23] LABS: BUN Creatinine Ratio 23.8 (10-20); Creatinine Clr Calc Pharmacy 33.8 ml/min; Est GFR (African American) 60.5 ml/min; Est GFR (Non-African American) 52.2 ml/min; Potassium 3.6 mmol/L (3.5-5.1)
[2021-05-16 09:27] LABS: Anisocytosis Present; Basophils # (auto) 0.07 K/uL (0-0.2); Basophils % (auto) 1.1 %; Eosinophils # (auto) 0.52 K/uL (0-0.5); Eosinophils % (auto) 8.5 %; Immature Granulocytes # (auto) 0.03 K/uL (0.00-0.02); Immature Granulocytes % (auto) 0.5 %; Lymphocytes # (auto) 0.66 K/uL (1.2-3.4); Lymphocytes % (auto) 10.8 %; Monocytes # (auto) 0.88 K/uL (0.11-0.59); Monocytes % (auto) 14.4 %; Neutrophils # (auto) 3.95 K/uL (1.4-6.5); Neutrophils % (auto) 64.7 %
[2021-05-16] MEDS: WARFARIN SOD 0.5 MG TAB PO SCH (16:26)
--- NOTE | 2021-05-16 17:56 | Hospitalist Progress Note ---
Date of Service May 16, 2021 Assessment & Plan (1) Acute UTI: Plan: E coli UTI -history of recurrent UTIs -blood cultures negative to date -finished 7 days of ceftriaxone Possible C diff colitis -Ongoing fever for 1 week with no apparent source. 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 Patient now with loose stools again -Consider drug fever, she has been on ceftriaxone for extended period of time however, remains febrile even while off antibiotics -Consideration of VTE is low likelihood, she is on coumadin and was supratherapeutic -Covid test 05/04 negative, repeat Covid 05/13 neg, Flu/RSV negative 05/13 -CXR 05/13- shows CHF, hazy airspace opacities likely represent pulmonary edema but could represent infectious/inflammatory pneumonitis, trace pleural effusions. Follow up CT chest shows CHF. -Appreciate ID input 05/15-- will treat for presumed C diff infection. Fidaxomicin 200mg BID x 10 days (last day would be 05/25/21). Patient is now afebrile for past 24 hours Acute on chronic diastolic CHF Acute hypoxic respiratory failure -desat down to 88% on RA. received lasix 20mg IV then lasix 40mg IV -appears euvolemic currently -hypoxia has resolved but patient still remains on oxygen. (99% on 2L NC)--> will ask nursing to wean off Bilateral leg pain Mod-severe spinal stenosis L2 subacute to acute mild compression fracture H/O ongoing leg pain and back pain which gradually worsened for past 2 -4 weeks -MRI lumbar spine results below -Appreciate Ortho input, with her recent UTI and ongoing fever. She is not a surgical candidate -Improved with changes in pain regimen: scheduled tylenol 650mg TID, increased Gabapentin to 200mg TID, continue tramadol and lidoderm patch -will continue with PT IMPRESSION: 1. Severely motion compromised examination. 2. There is a mild acute superior end plate compression fracture of L2. Marrow edema suggests this is acute to subacute. 3. There is a 13 mm superiorly extruded disc fragment at T10-T11. 4. There is moderate to severe central canal stenosis at L2-L3. 5. Postoperative and spondylotic change at additional levels as above. See discussion for detailed level by level analysis. Presyncopal Episode -Likely vasovagal given episode occurring after bowel movement -No loss of consciousness -Fall Precautions -Evaluated by PT and rehab is recommended. Patient has been accepted to [facility] -At risk for delirium with her age and being hospitalized CT head on admission negative Mental status back to baseline Hypophosphatemia Hypokalemia Replace electrolytes as needed (2) Leg pain, bilateral: (3) S/P TAVR (transcatheter aortic valve replacement): (4) Anemia: Plan: Chronic Macrocytic anemia No obvious bleeding Monitor CBC - B12-- normal, folate--normal, Iron studies--low -will give 1 dose IV iron now that she is no longer febrile (5) Supratherapeutic INR: Plan: -patient is maintained on coumadin for history of PE, DVT. -continue coumadin at 1.5mg daily -Unclear if she needs to remain on anticoagulation indefinitely. And also if she would be a NOAC candidtion--will defer to PCP. - monitor while on antibiotics (6) CAD (coronary artery disease): Plan: H/O CAD and recent TAVR on plavix, ezetimibe and atorvastatin Appreciate Cardiology Input Plan: Abnormal thyroid function test Elevated TSH normal free T4 Advised to repeat thyroid function test as outpatient Code Status Full code DVT prophylaxis Therapeutic on warfarin currently Disposition Will need Rehab. Accepted at [facility]. Discharge pending medical stability Admission and Anticipated Discharge Date Admission Date: May 04, 2021 Subjective Today feels better, afebrile for the past 24 hours Physical Exam Physical Exam: appears weak and tired, non toxic ENMT: normocephalic, atraumatic Respiratory: breathing comfortably on room air, no wheezing/rhonchi/rales Cardiovascular: regular rate and rhythm, no murmurs/rubs/gallops Gastrointestinal (Abdomen): soft, non tender Musculoskeletal: no edema Neurologic: awake, alert Results & Data Results & Data ([facility]) Vital Signs (Past 12 Hours) Vital Signs Temp Pulse Pulse Resp BP Pulse Ox 05/16/21 11:18 36.9 C 84 20 130/69 99 05/16/21 07:45 37.4 C 79 20 154/61 H 95 05/16/21 07:21 79 Laboratory Results Short CBC 05/16/21 Range/Units 08:35 WBC 6.11 (4.8-10.8) K/uL Hgb 8.6 L (12.0-16.0) g/dL Hct 26.4 L (37-47) % Plt Count 167 (130-400) K/uL BMP 05/16/21 08:35 Sodium 135 L Potassium 3.6 Chloride 101 Carbon Dioxide 27 BUN 24 H Creatinine 1.01 Glucose 127 H Calcium 8.0 L Medications Administered Current Inpatient Medications Acetaminophen (Acetaminophen 325 Mg Tab) 650 mg PO TID [facility] Stop: 06/11/21 13:59 Last Admin: 05/16/21 14:30 Dose: 650 mg Documented by: Amlodipine Besylate (Amlodipine Besylate 5 Mg Tab) 5 mg PO QAM [facility] Stop: 06/13/21 08:59 Last Admin: 05/16/21 07:47 Dose: 5 mg Documented by: Atorvastatin Calcium (Atorvastatin 40 Mg Tab) 40 mg PO QAM [facility] Stop: 06/04/21 08:59 Last Admin: 05/16/21 07:47 Dose: 40 mg Documented by: Clopidogrel Bisulfate (Clopidogrel Bisulfate 75 Mg Tab) 75 mg PO QAM [facility] Stop: 06/04/21 08:59 Last Admin: 05/16/21 07:45 Dose: 75 mg Documented by: Ezetimibe (Ezetimibe 10 Mg Tablet) 10 mg PO DAILY [facility] Stop: 06/04/21 08:59 Last Admin: 05/16/21 07:44 Dose: 10 mg Documented by: Ferrous Sulfate (Ferrous Sulfate 325 Mg Tab) 325 mg PO BIDM [facility] Stop: 06/13/21 16:59 Last Admin: 05/16/21 16:26 Dose: 325 mg Documented by: Fidaxomicin (Fidaxomicin 200 Mg Tab) 200 mg PO BID [facility] Stop: 05/25/21 09:01 Last Admin: 05/16/21 07:54 Dose: 200 mg Documented by: Folic Acid (Folic Acid 1 Mg Tab) 2 mg PO QAM [facility] Stop: 06/04/21 08:59 Last Admin: 05/16/21 07:45 Dose: 2 mg Documented by: Gabapentin (Gabapentin 100 Mg Cap) 200 mg PO TID [facility] Stop: 06/11/21 13:59 Last Admin: 05/16/21 14:30 Dose: 200 mg Documented by: Hydrochlorothiazide (Hydrochlorothiazide 25 Mg Tab) 25 mg PO DAILY PRN PRN Reason: Fluid Retention Stop: 06/03/21 21:12 Ipratropium [place] (Ipratropium [place] Neb Soln 0.02% 2.5 Ml Vial) 0.5 mg INH Q4H PRN PRN Reason: Shortness Of Breath Or Wheezing Stop: 06/12/21 22:59 Leflunomide (Lef[facility]om[facility] 10 Mg Tab) [facility] Stop: 06/04/21 08:59 Last Admin: 05/16/21 07:47 Dose: 20 mg Documented by: Levalbuterol HCl (Levalbuterol 1.25mg/0.5ml Neb) 1.25 mg INH Q4H PRN PRN Reason: Shortness Of Breath Or Wheezing Stop: 06/12/21 22:59 Lidocaine (Lidocaine 5% 1 Patch) 1 patch TD [facility] Stop: 06/04/21 14:14 Last Admin: 05/16/21 07:48 Dose: 1 patch Documented by: Metoprolol Succinate (Metoprolol Succ 50mg Ext Rel Tab) 50 mg PO BID [facility] Stop: 06/09/21 04:24 Last Admin: 05/16/21 07:47 Dose: 50 mg Documented by: Miscellaneous (Remove Lidoderm Patch) 1 ea N/A DAILY@2100 [facility] Stop: 06/04/21 20:59 Last Admin: 05/15/21 21:14 Dose: 1 ea Documented by: Multivitamins (Multivitamin Tab) 1 tab PO [facility] Stop: 06/04/21 08:59 Last Admin: 05/16/21 07:45 Dose: 1 tab Documented by: Nitroglycerin (Nitroglycerin Sl 0.4 Mg/Tab Tab) 0.4 mg SL UD PRN PRN Reason: Chest Pain Stop: 06/03/21 21:12 Ondansetron HCl (Ondansetron Inj 2 Mg/Ml 2 Ml Vial) 4 mg IV TID PRN PRN Reason: Nausea Stop: 06/05/21 08:21 Last Admin: 05/15/21 08:14 Dose: 4 mg Documented by: Pantoprazole Sodium (Pantoprazole 40 Mg Tab) 40 mg PO DAILY [facility] Stop: 06/04/21 08:59 Last Admin: 05/16/21 07:45 Dose: 40 mg Documented by: Potassium Phosphate (Pot Phosphate Monobasic W/ Sod Tab) 1 tab PO QID [facility] Stop: 06/08/21 12:59 Last Admin: 05/16/21 16:26 Dose: Not Given Documented by: Prednisone (Prednisone 5 Mg Tab) 5 mg PO QAM [facility] Stop: 06/04/21 08:59 Last Admin: 05/16/21 07:47 Dose: 5 mg Documented by: Ropinirole HCl (Ropinirole Hcl 1 Mg Tablet) 3 mg PO HS PRN PRN Reason: Restless Leg(S) Stop: 06/03/21 21:12 Last Admin: 05/16/21 02:20 Dose: 3 mg Documented by: Saccharomyces Boulardii (Saccharomyces Boulardii 250 Mg Cap) 250 mg PO DAILY [facility] Stop: 06/12/21 08:59 Last Admin: 05/16/21 07:45 Dose: 250 mg Documented by: Sennosides (Senna 8.6 Mg Tab) 8.6 mg PO DAILY [facility] Stop: 06/04/21 08:59 Last Admin: 05/11/21 08:42 Dose: 8.6 mg Documented by: Tramadol HCl (Tramadol Hcl 50 Mg Tablet) 25 mg PO Q4H PRN PRN Reason: moderate/severe pain Stop: 06/05/21 15:31 Last Admin: 05/08/21 07:21 Dose: 25 mg Documented by: Tramadol HCl (Tramadol Hcl 50 Mg Tablet) 25 mg PO Q8H PRN PRN Reason: Pain Stop: 06/09/21 09:59 Last Admin: 05/14/21 10:30 Dose: 25 mg Documented by: Warfarin Sodium (Warfarin Sod 0.5 Mg Tab) 1.5 mg PO DAILY@1600 [facility] Stop: 06/12/21 15:59 Last Admin: 05/16/21 16:26 Dose: 1.5 mg Documented by: (1) Anemia Anemia type: unspecified type Qualified Code(s): D64.9 - Anemia, unspecified
[2021-05-17 07:10] LABS: Basophils # (auto) 0.04 K/uL (0-0.2); Basophils % (auto) 0.6 %; Eosinophils # (auto) 0.37 K/uL (0-0.5); Eosinophils % (auto) 5.8 %; Hematocrit (blood only) 26.1 % (37-47); Hemoglobin 8.4 g/dL (12.0-16.0); Immature Granulocytes # (auto) 0.03 K/uL (0.00-0.02); Immature Granulocytes % (auto) 0.5 %; Lymphocytes # (auto) 1.15 K/uL (1.2-3.4); Lymphocytes % (auto) 18.1 %; Mean Corpuscular Hemoglobin 34.7 pg (25-34); Mean Corpuscular Hgb Conc 32.2 g/dL (32-36); Mean Corpuscular Volume 107.9 fL (80-100); Mean Platelet Volume 10.6 fL (7.4-10.4); Monocytes # (auto) 0.39 K/uL (0.11-0.59); Monocytes % (auto) 6.2 %; Neutrophils # (auto) 4.36 K/uL (1.4-6.5); Neutrophils % (auto) 68.8 %; Platelet Count 176 K/uL (130-400); RDW Coefficient of Variation 18.5 % (11.5-14.5); RDW Standard Deviation 73.8 fL (36.4-46.3); Red Blood Count 2.42 M/uL (4.2-5.4); White Blood Count 6.34 K/uL (4.8-10.8)
[2021-05-17 07:38] LABS: BUN Creatinine Ratio 26.3 (10-20); Calcium 8.1 mg/dl (8.5-10.1); Est GFR (African American) 85.3 ml/min; Est GFR (Non-African American) 73.6 ml/min; Potassium 3.9 mmol/L (3.5-5.1)
[2021-05-17] MEDS: LIDOCAINE 5% 1 PATCH TD SCH (07:41)
[2021-05-17] MEDS: FIDAXOMICIN 200 MG TAB PO SCH ×2 (07:45→20:08)
[2021-05-17] MEDS: SACCHAROMYCES BOULARDII 250 MG CAP PO SCH (07:45)
[2021-05-17] MEDS: EZETIMIBE 10 MG TABLET PO SCH (07:45)
[2021-05-17] MEDS: CLOPIDOGREL BISULFATE 75 MG TAB PO SCH (07:46)
[2021-05-17] MEDS: LEFLUNOMIDE 10 MG TAB PO SCH (07:46)
[2021-05-17] MEDS: POT PHOSPHATE MONOBASIC W/ SOD TAB PO SCH ×5 (07:46→20:02)
[2021-05-17] MEDS: ACETAMINOPHEN 325 MG TAB PO SCH ×3 (07:47→20:03)
[2021-05-17] MEDS: MULTIVITAMIN TAB PO SCH (07:48)
[2021-05-17] MEDS: ATORVASTATIN 40 MG TAB PO SCH (07:48)
[2021-05-17] MEDS: PANTOprazole 40 MG TAB PO SCH (07:48)
[2021-05-17] MEDS: FOLIC ACID 1 MG TAB PO SCH (07:48)
[2021-05-17] MEDS: FERROUS SULFATE 325 MG TAB PO SCH ×2 (07:49→17:15)
[2021-05-17] MEDS: predniSONE 5 MG TAB PO SCH (07:49)
[2021-05-17] MEDS: amLODIPine BESYLATE 5 MG TAB PO SCH (07:49)
[2021-05-17] MEDS: METOPROLOL SUCC 50MG EXT REL TAB PO SCH ×2 (07:50→20:04)
[2021-05-17] MEDS: GABAPENTIN 100 MG CAP PO SCH ×3 (07:50→20:05)
[2021-05-17 08:00] LABS: INR 3.7 (0.9-1.1)
[2021-05-17] MEDS ORDERED: IRON SUCROSE 200 MG in 0.9 % SODIUM CHLORIDE 100 ML IV ONE (09:00)
--- NOTE | 2021-05-17 12:29 | Hospitalist Progress Note ---
Date of Service May 17, 2021 Assessment & Plan (1) Acute UTI: Plan: E coli UTI -history of recurrent UTIs -blood cultures negative to date -finished 7 days of ceftriaxone Possible C diff colitis -Ongoing fever for 1 week with no apparent source. 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 Patient now with loose stools again -Consider drug fever, she has been on ceftriaxone for extended period of time however, remains febrile even while off antibiotics -Consideration of VTE is low likelihood, she is on coumadin and was supratherapeutic -Covid test 05/04 negative, repeat Covid 05/13 neg, Flu/RSV negative 05/13 -CXR 05/13- shows CHF, hazy airspace opacities likely represent pulmonary edema but could represent infectious/inflammatory pneumonitis, trace pleural effusions. Follow up CT chest shows CHF. -Appreciate ID input 05/15-- will treat for presumed C diff infection. Fidaxomicin 200mg BID x 10 days (last day would be 05/25/21). Patient is now afebrile for past 48 hours Acute on chronic diastolic CHF Acute hypoxic respiratory failure -desat down to 88% on RA. received lasix 20mg IV then lasix 40mg IV -appears euvolemic currently -hypoxia has resolved but patient still remains on oxygen. (99% on 2L NC)--> will ask nursing to wean off Bilateral leg pain Mod-severe spinal stenosis L2 subacute to acute mild compression fracture H/O ongoing leg pain and back pain which gradually worsened for past 2 -4 weeks -MRI lumbar spine results below -Appreciate Ortho input, with her recent UTI and ongoing fever. She is not a surgical candidate -Improved with changes in pain regimen: scheduled tylenol 650mg TID, increased Gabapentin to 200mg TID, continue tramadol and lidoderm patch -will continue with PT IMPRESSION: 1. Severely motion compromised examination. 2. There is a mild acute superior end plate compression fracture of L2. Marrow edema suggests this is acute to subacute. 3. There is a 13 mm superiorly extruded disc fragment at T10-T11. 4. There is moderate to severe central canal stenosis at L2-L3. 5. Postoperative and spondylotic change at additional levels as above. See discussion for detailed level by level analysis. Presyncopal Episode -Likely vasovagal given episode occurring after bowel movement -No loss of consciousness -Fall Precautions -Evaluated by PT and rehab is recommended. Patient has been accepted to [facility] -At risk for delirium with her age and being hospitalized CT head on admission negative Mental status back to baseline Hypophosphatemia Hypokalemia Replace electrolytes as needed (2) Leg pain, bilateral: (3) S/P TAVR (transcatheter aortic valve replacement): (4) Anemia: Plan: Chronic Macrocytic anemia No obvious bleeding Monitor CBC - B12-- normal, folate--normal, Iron studies--low -s/p 1 dose IV iron 05/16. continue PO iron (5) Supratherapeutic INR: Plan: -patient is maintained on coumadin for history of PE, DVT. -INR today 3.7. Will hold coumadin. Resume when INR < 3 (6) CAD (coronary artery disease): Plan: H/O CAD and recent TAVR on plavix, ezetimibe and atorvastatin Appreciate Cardiology Input Plan: Abnormal thyroid function test Elevated TSH normal free T4 Advised to repeat thyroid function test as outpatient Code Status Full code DVT prophylaxis Therapeutic on warfarin currently Disposition Will need Rehab. Patient is medically stable for discharge currently. Accepted at [facility], they will have a bed tomorrow. Admission and Anticipated Discharge Date Admission Date: May 04, 2021 Subjective Remains afebrile for past 48 hours No events overnight Physical Exam Physical Exam: Appears well. No acute distress Respiratory: breathing comfortably, no wheezing/rhonchi/rales Cardiovascular: regular rate and rhythm, no murmurs/rubs Gastrointestinal (Abdomen): soft,non tender Musculoskeletal: no edema Skin: mild bruising, no ulcer noted, no redness Neurologic: awake, alert, spontaneously moving extremities Results & Data Results & Data ([facility]) Vital Signs (Past 12 Hours) Vital Signs Temp Pulse Pulse Resp BP Pulse Ox 05/17/21 11:48 37.5 C 82 20 135/71 95 05/17/21 08:01 36.9 C 82 20 158/62 H 92 05/17/21 07:16 72 05/17/21 03:55 36.9 C 71 20 165/68 H 96 Laboratory Results Short CBC 05/17/21 Range/Units 06:57 WBC 6.34 (4.8-10.8) K/uL Hgb 8.4 L (12.0-16.0) g/dL Hct 26.1 L (37-47) % Plt Count 176 (130-400) K/uL BMP 05/17/21 06:57 Sodium 133 L Potassium 3.9 Chloride 101 Carbon Dioxide 27 BUN 20 Creatinine 0.76 Glucose 88 Calcium 8.1 L INR 3.7 Medications Administered Current Inpatient Medications Acetaminophen (Acetaminophen 325 Mg Tab) 650 mg PO TID [facility] Stop: 06/11/21 13:59 Last Admin: 05/17/21 07:47 Dose: 650 mg Documented by: Amlodipine Besylate (Amlodipine Besylate 5 Mg Tab) 5 mg PO QAM [facility] Stop: 06/13/21 08:59 Last Admin: 05/17/21 07:49 Dose: 5 mg Documented by: Atorvastatin Calcium (Atorvastatin 40 Mg Tab) [facility] Stop: 06/04/21 08:59 Last Admin: 05/17/21 07:48 Dose: 40 mg Documented by: Clopidogrel Bisulfate (Clopidogrel Bisulfate 75 Mg Tab) 75 mg PO QAM [facility] Stop: 06/04/21 08:59 Last Admin: 05/17/21 07:46 Dose: 75 mg Documented by: Ezetimibe (Ezetimibe 10 Mg Tablet) 10 mg PO DAILY [facility] Stop: 06/04/21 08:59 Last Admin: 05/17/21 07:45 Dose: 10 mg Documented by: Ferrous Sulfate (Ferrous Sulfate 325 Mg Tab) 325 mg PO BIDM [facility] Stop: 06/13/21 16:59 Last Admin: 05/17/21 07:49 Dose: 325 mg Documented by: Fidaxomicin (Fidaxomicin 200 Mg Tab) 200 mg PO BID [facility] Stop: 05/25/21 09:01 Last Admin: 05/17/21 07:45 Dose: 200 mg Documented by: Folic Acid (Folic Acid 1 Mg Tab) 2 mg PO QAM [facility] Stop: 06/04/21 08:59 Last Admin: 05/17/21 07:48 Dose: 2 mg Documented by: Gabapentin (Gabapentin 100 Mg Cap) 200 mg PO TID [facility] Stop: 06/11/21 13:59 Last Admin: 05/17/21 07:50 Dose: 200 mg Documented by: Hydrochlorothiazide (Hydrochlorothiazide 25 Mg Tab) 25 mg PO DAILY PRN PRN Reason: Fluid Retention Stop: 06/03/21 21:12 Ipratropium [place] (Ipratropium [place] Neb Soln 0.02% 2.5 Ml Vial) 0.5 mg INH Q4H PRN PRN Reason: Shortness Of Breath Or Wheezing Stop: 06/12/21 22:59 Leflunomide (Leflunomide 10 Mg Tab) [facility] Stop: 06/04/21 08:59 Last Admin: 05/17/21 07:46 Dose: 20 mg Documented by: Levalbuterol HCl (Levalbuterol 1.25mg/0.5ml Neb) 1.25 mg INH Q4H PRN PRN Reason: Shortness Of Breath Or Wheezing Stop: 06/12/21 22:59 Lidocaine (Lidocaine 5% 1 Patch) 1 patch TD [facility] Stop: 06/04/21 14:14 Last Admin: 05/17/21 07:41 Dose: 1 patch Documented by: Metoprolol Succinate (Metoprolol Succ 50mg Ext Rel Tab) 50 mg PO BID [facility] Stop: 06/09/21 04:24 Last Admin: 05/17/21 07:50 Dose: 50 mg Documented by: Miscellaneous (Remove Lidoderm Patch) 1 ea N/A DAILY@2100 [facility] Stop: 06/04/21 20:59 Last Admin: 05/16/21 21:34 Dose: 1 ea Documented by: Multivitamins (Multivitamin Tab) 1 tab PO [facility] Stop: 06/04/21 08:59 Last Admin: 05/17/21 07:48 Dose: 1 tab Documented by: Nitroglycerin (Nitroglycerin Sl 0.4 Mg/Tab Tab) 0.4 mg SL UD PRN PRN Reason: Chest Pain Stop: 06/03/21 21:12 Ondansetron HCl (Ondansetron Inj 2 Mg/Ml 2 Ml Vial) 4 mg IV TID PRN PRN Reason: Nausea Stop: 06/05/21 08:21 Last Admin: 05/15/21 08:14 Dose: 4 mg Documented by: Pantoprazole Sodium (Pantoprazole 40 Mg Tab) 40 mg PO DAILY [facility] Stop: 06/04/21 08:59 Last Admin: 05/17/21 07:48 Dose: 40 mg Documented by: Potassium Phosphate (Pot Phosphate Monobasic W/ Sod Tab) 2 tab PO QID [facility] Stop: 05/19/21 08:59 Last Admin: 05/17/21 08:09 Dose: 2 tab Documented by: Prednisone (Prednisone 5 Mg Tab) 5 mg PO QAM [facility] Stop: 06/04/21 08:59 Last Admin: 05/17/21 07:49 Dose: 5 mg Documented by: Ropinirole HCl (Ropinirole Hcl 1 Mg Tablet) 3 mg PO HS PRN PRN Reason: Restless Leg(S) Stop: 06/03/21 21:12 Last Admin: 05/16/21 21:34 Dose: 3 mg Documented by: Saccharomyces Boulardii (Saccharomyces Boulardii 250 Mg Cap) 250 mg PO DAILY [facility] Stop: 06/12/21 08:59 Last Admin: 05/17/21 07:45 Dose: 250 mg Documented by: Sennosides (Senna 8.6 Mg Tab) 8.6 mg PO DAILY [facility] Stop: 06/04/21 08:59 Last Admin: 05/11/21 08:42 Dose: 8.6 mg Documented by: Tramadol HCl (Tramadol Hcl 50 Mg Tablet) 25 mg PO Q4H PRN PRN Reason: moderate/severe pain Stop: 06/05/21 15:31 Last Admin: 05/08/21 07:21 Dose: 25 mg Documented by: Tramadol HCl (Tramadol Hcl 50 Mg Tablet) 25 mg PO Q8H PRN PRN Reason: Pain Stop: 06/09/21 09:59 Last Admin: 05/14/21 10:30 Dose: 25 mg Documented by: (1) Anemia Anemia type: unspecified type Qualified Code(s): D64.9 - Anemia, unspecified
[2021-05-17] MEDS: rOPINIRole HCL 1 MG TABLET PO PRN (20:05)
[2021-05-18] MEDS: traMADol HCL 50 MG TABLET PO PRN ×2 (00:46→10:20)
[2021-05-18 06:41] LABS: INR 4.7 (0.9-1.1); Prothrombin Time 42.4 Seconds (9.0-12.0)
[2021-05-18] MEDS: LIDOCAINE 5% 1 PATCH TD SCH (08:52)
[2021-05-18] MEDS: FIDAXOMICIN 200 MG TAB PO SCH ×2 (08:54→21:09)
[2021-05-18] MEDS: SACCHAROMYCES BOULARDII 250 MG CAP PO SCH (08:54)
[2021-05-18] MEDS: METOPROLOL SUCC 50MG EXT REL TAB PO SCH ×2 (08:55→21:09)
[2021-05-18] MEDS: amLODIPine BESYLATE 5 MG TAB PO SCH (08:55)
[2021-05-18] MEDS: ACETAMINOPHEN 325 MG TAB PO SCH ×3 (08:55→21:05)
[2021-05-18] MEDS: predniSONE 5 MG TAB PO SCH (08:55)
[2021-05-18] MEDS: FOLIC ACID 1 MG TAB PO SCH (08:55)
[2021-05-18] MEDS: MULTIVITAMIN TAB PO SCH (08:55)
[2021-05-18] MEDS: LEFLUNOMIDE 10 MG TAB PO SCH (08:55)
[2021-05-18] MEDS: POT PHOSPHATE MONOBASIC W/ SOD TAB PO SCH ×4 (08:56→21:07)
[2021-05-18] MEDS: EZETIMIBE 10 MG TABLET PO SCH (08:57)
[2021-05-18] MEDS: GABAPENTIN 100 MG CAP PO SCH ×3 (08:57→21:08)
[2021-05-18] MEDS: FERROUS SULFATE 325 MG TAB PO SCH ×2 (08:57→16:41)
[2021-05-18] MEDS: PANTOprazole 40 MG TAB PO SCH (08:58)
[2021-05-18] MEDS: CLOPIDOGREL BISULFATE 75 MG TAB PO SCH (08:58)
[2021-05-18] MEDS: ATORVASTATIN 40 MG TAB PO SCH (08:58)
--- NOTE | 2021-05-18 13:28 | Hospitalist Progress Note ---
Date of Service May 18, 2021 Assessment & Plan (1) Acute UTI: Plan: E coli UTI -history of recurrent UTIs -blood cultures negative to date -finished 7 days of ceftriaxone Possible C diff colitis -Ongoing fever for 1 week with no apparent source. 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 -Consider drug fever, she has been on ceftriaxone for extended period of time however, remains febrile even while off antibiotics -Consideration of VTE is low likelihood, she is on coumadin and INR was supratherapeutic -Covid test 05/04 negative, repeat Covid 05/13 neg, Flu/RSV negative 05/13 -CXR 05/13- shows CHF, hazy airspace opacities likely represent pulmonary edema but could represent infectious/inflammatory pneumonitis, trace pleural effusions. Follow up CT chest shows CHF. -Appreciate ID input 05/15-- will treat for presumed C diff infection. Fidaxomicin 200mg BID x 10 days (last day would be 05/25/21)--> will need to switch to PO vancomycin at discharge to SNF due to cost. Patient has been afebrile for past 3 days. Single episode of T 38.2 but it may be due to ambient room temperative being warm. -repeat blood cultures drawn today. will repeat labs tomorrow Acute on chronic diastolic CHF Acute hypoxic respiratory failure -desat down to 88% on RA. received lasix 20mg IV then lasix 40mg IV -appears euvolemic currently -now weaned off to room air Bilateral leg pain Mod-severe spinal stenosis L2 subacute to acute mild compression fracture H/O ongoing leg pain and back pain which gradually worsened for past 2 -4 weeks -MRI lumbar spine results below -Appreciate Ortho input, with her recent UTI and ongoing fever. She is not a surgical candidate -Improved with changes in pain regimen: scheduled tylenol 650mg TID, increased Gabapentin to 200mg TID, continue tramadol and lidoderm patch -will continue with PT IMPRESSION: 1. Severely motion compromised examination. 2. There is a mild acute superior end plate compression fracture of L2. Marrow edema suggests this is acute to subacute. 3. There is a 13 mm superiorly extruded disc fragment at T10-T11. 4. There is moderate to severe central canal stenosis at L2-L3. 5. Postoperative and spondylotic change at additional levels as above. See discussion for detailed level by level analysis. Presyncopal Episode -Likely vasovagal given episode occurring after bowel movement -No loss of consciousness -Fall Precautions -Evaluated by PT and rehab is recommended. Patient has been accepted to [facility] -At risk for delirium with her age and being hospitalized CT head on admission negative Mental status back to baseline Hypophosphatemia Hypokalemia Replace electrolytes as needed (2) Leg pain, bilateral: (3) S/P TAVR (transcatheter aortic valve replacement): (4) Anemia: Plan: Chronic Macrocytic anemia No obvious bleeding Monitor CBC - B12-- normal, folate--normal, Iron studies--low -s/p 1 dose IV iron 05/16. started PO iron (5) Supratherapeutic INR: Plan: -patient is maintained on coumadin for history of PE, DVT. -INR today 3.7--> 4.7. continue to hold coumadin. Resume when IN R< 3 -due to being on antibiotics (6) CAD (coronary artery disease): Plan: H/O CAD and recent TAVR on plavix, ezetimibe and atorvastatin Appreciate Cardiology Input Plan: Abnormal thyroid function test Elevated TSH normal free T4 Advised to repeat thyroid function test as outpatient Code Status Full code DVT prophylaxis Therapeutic on warfarin currently Disposition Patient was accepted at [facility], discharge today was cancelled due to fall and fever. Can possibly discharge tomorrow if remains stable. Patient will need her Dificid switched to PO vancomycin at discharge since facility will not provide this medication due to cost. (Dificid would be $946 co-pay for family if they fill at retail pharmacy) Admission and Anticipated Discharge Date Admission Date: May 04, 2021 Subjective This morning Mrs Tse was complaining of feeling cold. "I'm always so cold in the morning". Heat was turned up in her room. Later, notified by RN that she fell while using the commode (unsteady gait) but with no injuries. Later also n otified Fever to 38.2 I saw patient before and after her fall. After her fall, she denies having any new pains. Reports chronic bilateral knee pain. Denies feeling warm or feverish. Physical Exam Physical Exam: Exam after her fall Appears well. Attempting to reposition herself in bed. Does NOT appear flushed or feverish Respiratory: breathing comfortably on room air, no wheezing/rhonchi/rales Cardiovascular: regular rate and rhythm, no murmurs/rubs Gastrointestinal (Abdomen): soft, non tender Musculoskeletal: bilateral knees with no swelling/erythema/bruising, no lower extremity edema Neurologic: awake, alert, spontaneously moving extremities Results & Data Results & Data ([facility]) Vital Signs (Past 12 Hours) Vital Signs Temp Pulse Pulse Resp BP Pulse Ox 05/18/21 12:43 37.1 C 05/18/21 10:22 38.2 C H 98 H 16 147/62 H 92 05/18/21 08:51 82 152/72 H 05/18/21 07:35 77 05/18/21 03:32 37.0 C 68 18 159/61 H 98 05/18/21 01:54 64 Medications Administered Current Inpatient Medications Acetaminophen (Acetaminophen 325 Mg Tab) 650 mg PO TID [facility] Stop: 06/11/21 13:59 Last Admin: 05/18/21 12:39 Dose: 650 mg Documented by: Amlodipine Besylate (Amlodipine Besylate 5 Mg Tab) [facility] [place] Stop: 06/13/21 08:59 Last Admin: 05/18/21 08:55 Dose: 5 mg Documented by: Atorvastatin Calcium (Atorvastatin 40 Mg Tab) 40 mg PO QAM [facility] Stop: 06/04/21 08:59 Last Admin: 05/18/21 08:58 Dose: 40 mg Documented by: Clopidogrel Bisulfate (Clopidogrel Bisulfate 75 Mg Tab) 75 mg PO QAM [facility] Stop: 06/04/21 08:59 Last Admin: 05/18/21 08:58 Dose: 75 mg Documented by: Ezetimibe (Ezetimibe 10 Mg Tablet) 10 mg PO DAILY [facility] Stop: 06/04/21 08:59 Last Admin: 05/18/21 08:57 Dose: 10 mg Documented by: Ferrous Sulfate (Ferrous Sulfate 325 Mg Tab) 325 mg PO BIDM [facility] Stop: 06/13/21 16:59 Last Admin: 05/18/21 08:57 Dose: 325 mg Documented by: Fidaxomicin (Fidaxomicin 200 Mg Tab) 200 mg PO BID [facility] Stop: 05/25/21 09:01 Last Admin: 05/18/21 08:54 Dose: 200 mg Documented by: Folic Acid (Folic Acid 1 Mg Tab) 2 mg PO QAM [facility] Stop: 06/04/21 08:59 Last Admin: 05/18/21 08:55 Dose: 2 mg Documented by: Gabapentin (Gabapentin 100 Mg Cap) 200 mg PO TID [facility] Stop: 06/11/21 13:59 Last Admin: 05/18/21 12:39 Dose: 200 mg Documented by: Hydrochlorothiazide (Hydrochlorothiazide 25 Mg Tab) 25 mg PO DAILY PRN PRN Reason: Fluid Retention Stop: 06/03/21 21:12 Ipratropium [place] (Ipratropium [place] Neb Soln 0.02% 2.5 Ml Vial) 0.5 mg INH Q4H PRN PRN Reason: Shortness Of Breath Or Wheezing Stop: 06/12/21 22:59 Leflunomide (Leflunomide 10 Mg Tab) 20 [facility] [place] Stop: 06/04/21 08:59 Last Admin: 05/18/21 08:55 Dose: 20 mg Documented by: Levalbuterol HCl (Levalbuterol 1.25mg/0.5ml Neb) 1.25 mg INH Q4H PRN PRN Reason: Shortness Of Breath Or Wheezing Stop: 06/12/21 22:59 Lidocaine (Lidocaine 5% 1 Patch) 1 patch TD QAM [facility] Stop: 06/04/21 14:14 Last Admin: 05/18/21 08:52 Dose: 1 patch Documented by: Metoprolol Succinate (Metoprolol Succ 50mg Ext Rel Tab) 50 mg PO BID [facility] Stop: 06/09/21 04:24 Last Admin: 05/18/21 08:55 Dose: 50 mg Documented by: Miscellaneous (Remove Lidoderm Patch) 1 ea N/A DAILY@2100 [facility] Stop: 06/04/21 20:59 Last Admin: 05/17/21 20:04 Dose: 1 ea Documented by: Multivitamins (Multivitamin Tab) 1 tab [facility] [place] Stop: 06/04/21 08:59 Last Admin: 05/18/21 08:55 Dose: 1 tab Documented by: Nitroglycerin (Nitroglycerin Sl 0.4 Mg/Tab Tab) 0.4 mg SL UD PRN PRN Reason: Chest Pain Stop: 06/03/21 21:12 Ondansetron HCl (Ondansetron Inj 2 Mg/Ml 2 Ml Vial) 4 mg IV TID PRN PRN Reason: Nausea Stop: 06/05/21 08:21 Last Admin: 05/15/21 08:14 Dose: 4 mg Documented by: Pantoprazole Sodium (Pantoprazole 40 Mg Tab) 40 mg PO DAILY [facility] Stop: 06/04/21 08:59 Last Admin: 05/18/21 08:58 Dose: 40 mg Documented by: Potassium Phosphate (Pot Phosphate Monobasic W/ Sod Tab) 2 tab PO QID [facility] Stop: 05/19/21 08:59 Last Admin: 05/18/21 12:41 Dose: 2 tab Documented by: Prednisone (Prednisone 5 Mg Tab) 5 mg PO QAM [facility] Stop: 06/04/21 08:59 Last Admin: 05/18/21 08:55 Dose: 5 mg Documented by: Ropinirole HCl (Ropinirole Hcl 1 Mg Tablet) 3 mg PO HS PRN PRN Reason: Restless Leg(S) Stop: 06/03/21 21:12 Last Admin: 05/17/21 20:05 Dose: 3 mg Documented by: Saccharomyces Boulardii (Saccharomyces [place] 250 Mg Cap) 250 mg PO DAILY [facility] Stop: 06/12/21 08:59 Last Admin: 05/18/21 08:54 Dose: 250 mg Documented by: Sennosides (Senna 8.6 Mg Tab) 8.6 mg PO DAILY [facility] Stop: 06/04/21 08:59 Last Admin: 05/11/21 08:42 Dose: 8.6 mg Documented by: Tramadol HCl (Tramadol Hcl 50 Mg Tablet) 25 mg PO Q4H PRN PRN Reason: moderate/severe pain Stop: 06/05/21 15:31 Last Admin: 05/08/21 07:21 Dose: 25 mg Documented by: Tramadol HCl (Tramadol Hcl 50 Mg Tablet) 25 mg PO Q8H PRN PRN Reason: Pain Stop: 06/09/21 09:59 Last Admin: 05/18/21 10:20 Dose: 25 mg Documented by: (1) Anemia Anemia type: unspecified type Qualified Code(s): D64.9 - Anemia, unspecified
[2021-05-19] MEDS: rOPINIRole HCL 1 MG TABLET PO PRN ×2 (02:11→19:21)
[2021-05-19] MEDS: ACETAMINOPHEN 325 MG TAB PO SCH ×3 (09:15→20:30)
[2021-05-19] MEDS: FERROUS SULFATE 325 MG TAB PO SCH ×2 (09:15→17:10)
[2021-05-19] MEDS: amLODIPine BESYLATE 5 MG TAB PO SCH (09:15)
[2021-05-19] MEDS: EZETIMIBE 10 MG TABLET PO SCH (09:16)
[2021-05-19] MEDS: CLOPIDOGREL BISULFATE 75 MG TAB PO SCH (09:16)
[2021-05-19] MEDS: ATORVASTATIN 40 MG TAB PO SCH (09:16)
[2021-05-19] MEDS: GABAPENTIN 100 MG CAP PO SCH ×3 (09:17→21:22)
[2021-05-19] MEDS: FOLIC ACID 1 MG TAB PO SCH (09:17)
[2021-05-19] MEDS: LIDOCAINE 5% 1 PATCH TD SCH (09:18)
[2021-05-19] MEDS: LEFLUNOMIDE 10 MG TAB PO SCH (09:18)
[2021-05-19] MEDS: MULTIVITAMIN TAB PO SCH (09:20)
[2021-05-19] MEDS: METOPROLOL SUCC 50MG EXT REL TAB PO SCH ×2 (09:20→20:30)
[2021-05-19] MEDS: PANTOprazole 40 MG TAB PO SCH (09:20)
[2021-05-19] MEDS: SACCHAROMYCES BOULARDII 250 MG CAP PO SCH (09:21)
[2021-05-19] MEDS: predniSONE 5 MG TAB PO SCH (09:21)
[2021-05-19] MEDS: FIDAXOMICIN 200 MG TAB PO SCH ×2 (09:28→20:30)
[2021-05-19 09:46] LABS: Basophils # (auto) 0.06 K/uL (0-0.2); Basophils % (auto) 0.8 %; Eosinophils % (auto) 5.1 %; Hematocrit (blood only) 26.2 % (37-47); Hemoglobin 8.4 g/dL (12.0-16.0); Immature Granulocytes # (auto) 0.05 K/uL (0.00-0.02); Immature Granulocytes % (auto) 0.6 %; Lymphocytes % (auto) 10.3 %; Mean Corpuscular Hemoglobin 35.1 pg (25-34); Mean Corpuscular Hgb Conc 32.1 g/dL (32-36); Mean Corpuscular Volume 109.6 fL (80-100); Mean Platelet Volume 10.1 fL (7.4-10.4); Monocytes % (auto) 11.5 %; Neutrophils # (auto) 5.59 K/uL (1.4-6.5); Neutrophils % (auto) 71.7 %; Platelet Count 184 K/uL (130-400); RDW Coefficient of Variation 18.5 % (11.5-14.5); RDW Standard Deviation 73.3 fL (36.4-46.3); Red Blood Count 2.39 M/uL (4.2-5.4)
[2021-05-19 10:14] LABS: BUN Creatinine Ratio 22.7 (10-20); Calcium 8.2 mg/dl (8.5-10.1); Creatinine Clr Calc Pharmacy 45.9 ml/min; Est GFR (African American) 86.6 ml/min; Est GFR (Non-African American) 74.8 ml/min; Magnesium 1.8 mg/dl (1.7-2.4); Phosphorus 2.7 mg/dl (2.5-4.9); Potassium 3.8 mmol/L (3.5-5.1)
--- NOTE | 2021-05-19 19:49 | Hospitalist Progress Note ---
Date of Service May 19, 2021 Assessment & Plan (1) C. difficile colitis: (2) Lumbar disc herniation with radiculopathy: (3) Supratherapeutic INR: Plan: #. Acute UTI: #. Possible C. difficile colitis History of recurrent UTI, status post 7 days of ceftriaxone this admission. Patient continued to have fever, last one being on the morning of 05/18 Extensive work-up including blood culture has been unrevealing, blood culture 05/08 and 05/13 were negative, 05/13 TTE unremarkable Has an episode of diarrhea 05/12--> is still analyzed as C. difficile carrier but not actively infected 05/04 Covid test was negative, repeat Covid test on 05/13 also negative. Flu/RSV negative on 05/13 05/13 CXR shows CHF and likely pulmonary edema. Follow-up CT chest shows CHF. ID evaluated the the patient on 05/15: Treat for presumed C. difficile infection. Fidaxomicin 200mg BID x 10 days (last day would be 05/25/21)--> will need to switch to PO vancomycin at discharge to SNF due to cost. Patient has been afebrile for past 3 days. Single episode of T 38.2 but it may be due to ambient room temperative being warm. -repeat blood cultures drawn 05/18. Follow final results #. Acute on chronic diastolic CHF #. Acute hypoxic respiratory failure -desat down to 88% on RA. received lasix iv -appears euvolemic currently -now weaned off to room air -? Reach out to cardiology for any DC recommendation. #. Bilateral leg pain #. Mod-severe spinal stenosis #. L2 subacute to acute mild compression fracture -H/O ongoing leg pain and back pain which gradually worsened for past 2 -4 weeks -MRI lumbar spine results below -Appreciate Ortho input, with her recent UTI and ongoing fever. She is not a surgical candidate -Improved with changes in pain regimen: scheduled tylenol 650mg TID, increased Gabapentin to 200mg TID, continue tramadol and lidoderm patch -will continue with PT IMPRESSION: 1. Severely motion compromised examination. 2. There is a mild acute superior end plate compression fracture of L2. Marrow edema suggests this is acute to subacute. 3. There is a 13 mm superiorly extruded disc fragment at T10-T11. 4. There is moderate to severe central canal stenosis at L2-L3. 5. Postoperative and spondylotic change at additional levels as above. See discussion for detailed level by level analysis. #. Presyncopal Episode -Likely vasovagal given episode occurring after bowel movement -No loss of consciousness -Fall Precautions -Evaluated by PT and rehab is recommended. Patient has been accepted to [facility] #. Transient Confusion -At risk for delirium with her age and being hospitalized CT head on admission negative Mental status back to baseline #. Supratherapeutic INR: Plan: -patient is maintained on coumadin for history of PE, DVT. -INR uptrended lately. continue to hold coumadin. Resume when IN R< 3 -due to being on antibiotics -Patient will need close follow-up with Coumadin clinic as an outpatient. #. CAD (coronary artery disease): Plan: H/O CAD and recent TAVR on plavix, ezetimibe and atorvastatin Appreciate Cardiology Input #. Abnormal thyroid function test Elevated TSH normal free T4 Advised to repeat thyroid function test as outpatient Code Status Full code DVT prophylaxis Therapeutic on warfarin currently Disposition Patient was accepted at [facility], discharge today was cancelled due to fall and fever. Can possibly discharge tomorrow if remains stable. Patient will need her Dificid switched to PO vancomycin at discharge since facility will not provide this medication due to cost. (Dificid would be $946 co-pay for family if they fill at retail pharmacy). Likely DC tomorrow. Admission and Anticipated Discharge Date Admission Date: May 04, 2021 Subjective Patient seen and examined at bedside for UTI and likely C. difficile. Patient lying in bed, on room air, NAD, no new acute events overnight. Patient reports shaking legs on and off, patient has history of restless leg syndrome, on risperidone. Patient reports eating okay. Patient reports having loose bowel once every day. Patient denies any fever/headache/chills/chest pain/belly pain/other review of symptoms. Patient has not had fever since yesterday morning. Physical Exam Physical Exam: GENERAL: Alert and oriented x3. NAD, on RA. HEENT: No pallor, no icterus. Pupils equal, round and reactive to light. Oral mucosa moist. NECK: No JVD, no neck masses. HEART: S1 and S2 heard. Regular rate and rhythm. No murmur, no gallop. RESPIRATORY SYSTEM: Normal AP diameter. No accessory muscle use. No wheezing, no crackles. ABDOMEN: Soft, bowel sounds present, nontender, no distention. CENTRAL NERVOUS SYSTEM: No facial droop. Speech is clear. Obeys simple commands. Moves extremities. EXTREMITIES: No edema, no erythema seen. Results & Data Results & Data ([facility]) Vital Signs (Past 12 Hours) Vital Signs Temp Pulse Pulse Resp BP Pulse Ox 05/19/21 16:00 81 05/19/21 15:04 36.6 C 82 20 123/70 94 05/19/21 11:00 37.1 C 89 18 132/48 L 90 05/19/21 08:00 68
[2021-05-20 02:15] LABS: 18KDIGG Band NON-REACTIVE; 23KDIGG Band NON-REACTIVE; 23KDIGM Band DNR; 28KDIGG Band NON-REACTIVE; 30KDIGG Band NON-REACTIVE; 39KDIGG Band NON-REACTIVE; 39KDIGM Band DNR; 41KDIGG Band NON-REACTIVE; 41KDIGM Band DNR; 45KDIGG Band NON-REACTIVE; 58KDIGG Band NON-REACTIVE; 66KDIGG Band NON-REACTIVE; 93KDIGG Band NON-REACTIVE; Lyme Antibodies, WB IgG NEGATIVE (NEGATIVE)
[2021-05-20 08:09] LABS: INR 2.6 (0.9-1.1); Prothrombin Time 24.5 Seconds (9.0-12.0)
[2021-05-20 08:18] LABS: BUN Creatinine Ratio 21.1 (10-20); Calcium 8.3 mg/dl (8.5-10.1); Creatinine Clr Calc Pharmacy 44.5 ml/min; Est GFR (African American) 85.3 ml/min; Est GFR (Non-African American) 73.6 ml/min; Magnesium 1.8 mg/dl (1.7-2.4); Potassium 3.7 mmol/L (3.5-5.1)
[2021-05-20] MEDS: FERROUS SULFATE 325 MG TAB PO SCH (08:26)
[2021-05-20] MEDS: predniSONE 5 MG TAB PO SCH (08:26)
[2021-05-20] MEDS: LIDOCAINE 5% 1 PATCH TD SCH (08:26)
[2021-05-20] MEDS: MULTIVITAMIN TAB PO SCH (08:26)
[2021-05-20] MEDS: SACCHAROMYCES BOULARDII 250 MG CAP PO SCH (08:27)
[2021-05-20] MEDS: METOPROLOL SUCC 50MG EXT REL TAB PO SCH (08:27)
[2021-05-20] MEDS: GABAPENTIN 100 MG CAP PO SCH ×2 (08:27→13:56)
[2021-05-20] MEDS: CLOPIDOGREL BISULFATE 75 MG TAB PO SCH (08:27)
[2021-05-20] MEDS: PANTOprazole 40 MG TAB PO SCH (08:27)
[2021-05-20] MEDS: FOLIC ACID 1 MG TAB PO SCH (08:27)
[2021-05-20] MEDS: ATORVASTATIN 40 MG TAB PO SCH (08:27)
[2021-05-20] MEDS: ACETAMINOPHEN 325 MG TAB PO SCH ×2 (08:28→13:56)
[2021-05-20] MEDS: LEFLUNOMIDE 10 MG TAB PO SCH (08:28)
[2021-05-20] MEDS: amLODIPine BESYLATE 5 MG TAB PO SCH (08:28)
[2021-05-20] MEDS: EZETIMIBE 10 MG TABLET PO SCH (08:28)
[2021-05-20] MEDS: FIDAXOMICIN 200 MG TAB PO SCH (08:34)
[2021-05-20] MEDS: ONDANSETRON INJ 2 MG/ML 2 ML VIAL IV PRN (09:47)
--- NOTE | 2021-05-20 13:20 | Discharge Summary ---
Date of Service May 20, 2021 Admission HPI Per Admitting Provider CHIEF COMPLAINT: Back pain and leg pain and found to have UTI. HISTORY OF PRESENT ILLNESS: This is an 80-year-old female with past medical history significant for hyperlipidemia, chronic rhinitis, obstructive sleep apnea, history of SVT, history of wide complex tachycardia, history of pulmonary embolism, history of CAD, history of aortic valve stenosis, status post TAVR on 04/15/2021, chronic kidney disease stage III, restless legs syndrome, chronic low back pain with right-sided sciatica, lymphedema in both lower extremities, lumbar radiculopathy, rheumatoid arthritis involving multiple sites, history of DVT. The patient lives with her and she states she ambulates with a walker. Today, she had a lot of pain in the back and legs. As per the son, she has a lot of pain today in the back and sciatica and in the right leg and that is the reason she was brought in here and she is also feeling very sick today. She had some fever, but no cough. The patient denies any headache. No blurred vision. Somewhat hard of hearing. No runny nose, no sore throat, no difficulty swallowing. No chest pain or shortness of breath. She had one episode of vomiting today. Currently, feeling okay. No abdominal pain, normal bowel and bladder movements, and patient states the leg pain is getting better now and she also says her edema in the lower extremities is getting worse in the last 2 weeks, son also says the same thing that her edema in the lower extremities got worse recently. ALLERGIES: BACLOFEN, PENICILLIN, SULFA ANTIBIOTICS. PAST MEDICAL HISTORY: As mentioned above. PAST SURGICAL HISTORY: Left knee arthroplasty, right knee arthroplasty, bilateral carpal tunnel surgery, colonoscopy, coronary angiography right and left, EGDs, lumbar hemilaminectomy, TAVR, total abdominal hysterectomy with removal of tubes. MEDICATIONS: The patient is on amlodipine 5 mg p.o. daily, atorvastatin 40 mg p.o. a.m., Plavix 75 mg p.o. a.m., Coenzyme Q10 10 mg p.o. a.m., ezetimbe 10 mg p.o. daily, folic acid 2 mg p.o. a.m., gabapentin 100 mg p.o. b.i.d., hydrochlorothiazide 25 mg p.o. daily p.r.n., leflunomide 20 mg p.o. a.m., methotrexate 10 mg p.o. on Wednesday, metoprolol succinate 50 mg p.o. b.i.d., multivitamin 1 tablet p.o. a.m., Protonix 40 mg p.o. daily, prednisone 5 mg p.o. a.m., ropinirole 3 mg p.o. at bedtime p.r.n., senna 8.6 mg p.o. daily, warfarin 2.5 mg p.o. 6 times a week and warfarin 1.25 mg p.o. one time a week. FAMILY HISTORY: Significant for brother has rheumatoid arthritis, sister has rheumatoid arthritis, father had CABG, maternal grandfather had COPD. SOCIAL HISTORY: , former smoker, quit in 1970, smoked 1 pack a day for 10 years. No alcohol use. No drug use. REVIEW OF SYSTEMS: As per HPI. Rest of the review of systems is negative. Admission Exam Per Admitting Provider GENERAL: The patient is of moderate built, not in acute distress. VITAL SIGNS: Temperature 37.3, pulse 88, respiratory rate 16, blood pressure 131/49, oxygen 95% on room air. HEENT: Pupils equal, round and reactive to light. Oral mucosa moist. NECK: No JVD, no neck masses. CARDIOVASCULAR: S1 and S2 heard. Regular rate and rhythm. No murmur, no gallop. RESPIRATORY SYSTEM: Normal AP diameter. No accessory muscle use. No wheezing, no crackles. ABDOMEN: Soft, bowel sounds present, nontender, no distention. CENTRAL NERVOUS SYSTEM: Cranial nerves II through XII are grossly intact, nonfocal. EXTREMITIES: Bilateral lower extremity +2 pedal edema present. No erythema seen. Principal Diagnosis E coli UTI C diff colitis (presumed) Bilateral leg pain Mod-severe spinal stenosis L2 subacute to acute mild compression fracture Mild acute on chronic diastolic CHF Acute hypoxic respiratory failure Discharge Exam GENERAL: Alert and oriented x3. NAD, on RA. HEENT: No pallor, no icterus. Pupils equal, round and reactive to light. Oral mucosa moist. NECK: No JVD, no neck masses. HEART: S1 and S2 heard. Regular rate and rhythm. No murmur, no gallop. RESPIRATORY SYSTEM: Normal AP diameter. No accessory muscle use. No wheezing, no crackles. ABDOMEN: Soft, bowel sounds present, nontender, no distention. CENTRAL NERVOUS SYSTEM: No facial droop. Speech is clear. Obeys simple commands. Moves extremities. EXTREMITIES: No edema, no erythema seen. Discharge Data Allergies Allergy/AdvReac Type Severity Reaction Status Date / Time baclofen Allergy Mild DIZZY Verified 05/04/21 17:39 Penicillins Allergy Mild RASH Verified 05/04/21 17:39 Sulfa (Sulfonamide Allergy Mild HEADACHE Verified 05/04/21 17:39 Antibiotics) Consultations 05/04/21 18:28 ED Decision to Admit Stat 05/05/21 08:00 Consult Cardiology Routine 05/10/21 09:58 Consult Orthopedic Surgery Routine 05/14/21 14:55 Consult Infectious Diseases Routine Ordered Studies 05/04/21 16:23 CT abd pelvis IV con only Stat 05/04/21 19:15 CT head/brain wo con Stat 05/12/21 05:59 MR lumbar spine wo con Routine 05/14/21 09:02 CT chest diagnostic wo con Routine Hospital Course (1) C. difficile colitis: (2) Lumbar disc herniation with radiculopathy: (3) Supratherapeutic INR: #. Acute UTI: #. Possible C. difficile colitis History of recurrent UTI, status post 7 days of ceftriaxone this admission. Patient continued to have fever, last one being on the morning of 05/18 Extensive work-up including blood culture has been unrevealing, blood culture 05/08 and 05/13 were negative, 05/13 TTE unremarkable, 05/18 Blood Cx neg growth for 48 hours Has an episode of diarrhea 05/12--> is still analyzed as C. difficile carrier but not actively infected 05/04 Covid test was negative, repeat Covid test on 05/13 also negative. Flu/RSV negative on 05/13 05/13 CXR shows CHF and likely pulmonary edema. Follow-up CT chest shows CHF. ID evaluated the the patient on 05/15: Treat for presumed C. difficile infection. Fidaxomicin 200mg BID x 10 days (last day would be 05/25/21)--> Switched to PO vancomycin for 5 more days at discharge to SNF due to cost. Patient has been afebrile for past 3-4 days. Single episode of T 38.2 but it may be due to ambient room temperative being warm. 2/22 --> d/w ID Dr. Downs for recommendation regarding transition to PO vanc from Dificid. Appreciate input. #. Acute on chronic diastolic CHF #. Acute hypoxic respiratory failure -desat down to 88% on RA. received lasix iv -appears euvolemic currently -now weaned off to room air -05/20 d/w cardio --> no further recs as for now. #. Bilateral leg pain #. Mod-severe spinal stenosis #. L2 subacute to acute mild compression fracture -H/O ongoing leg pain and back pain which gradually worsened for past 2 -4 weeks -MRI lumbar spine results below -Appreciate Ortho input, with her recent UTI and ongoing fever. She is not a surgical candidate -Improved with changes in pain regimen: scheduled tylenol 650mg TID, increased Gabapentin to 200mg TID, continue tramadol and lidoderm patch -Continue with PT, Pt to f/u with ortho spine as Outpatient IMPRESSION: 1. Severely motion compromised examination. 2. There is a mild acute superior end plate compression fracture of L2. Marrow edema suggests this is acute to subacute. 3. There is a 13 mm superiorly extruded disc fragment at T10-T11. 4. There is moderate to severe central canal stenosis at L2-L3. 5. Postoperative and spondylotic change at additional levels as above. See discussion for detailed level by level analysis. #. Presyncopal Episode -Likely vasovagal given episode occurring after bowel movement -No loss of consciousness -Fall Precautions -Evaluated by PT and rehab is recommended. Being discharged to [facility] #. Transient Confusion -At risk for delirium with her age and being hospitalized CT head on admission negative Mental status back to baseline #. Supratherapeutic INR: d/t being on Antibiotics, resolved Plan: -patient is maintained on coumadin for history of PE, DVT. -INR therapeutic. c/w home dose, PT/INR in 2-3 days of DC, pt made aware, - close f/u with coumadin clinic for dose appropriateness. #. CAD (coronary artery disease): Plan: H/O CAD and recent TAVR on plavix, ezetimibe and atorvastatin Appreciate Cardiology Input #. Abnormal thyroid function test Elevated TSH normal free T4 Advised to repeat thyroid function test as outpatient Code Status Full code DVT prophylaxis Therapeutic on warfarin currently Pt being discharged to [facility] with following instructions at the point of discharge: You came to the hospital for weakness, you were found to have a UTI. You received antibiotics for 7 days While you were here, you were noted to have fevers and loose stools. You are a C diff carrier so you were treated for presumed C diff colitis. You received 5 days worth of Dificid 200 mg twice daily, you will be transitioned to p.o. vancomycin upon discharge for 5 more days. INR today was 2.6. Resume your home dose of Coumadin upon discharge. Get your blood work PT/INR in 2 to 3 days upon discharge, maintain close follow-up with Coumadin clinic for dose appropriateness. Please follow up with your spine surgeon for your ongoing back pain. You had an MRI Lumbar spine here. Your TSH was elevated while in hospital, follow-up with your PCP in 3 months for repeat thyroid function test. Take medications as prescribed. Total Time Total Time Spent Total Time Spent (In Minutes): 45 Discharge Plan Discharge Items Patient Disposition: Transfer Inpatient Rehab Fac Reason For Visit: ILLNESS Discharge Diagnosis: E coli UTI C diff colitis (presumed) Bilateral leg pain Mod-severe spinal stenosis L2 subacute to acute mild compression fracture Mild acute on chronic diastolic CHF Acute hypoxic respiratory failure Condition on Discharge: Good Activity: As commented below Lifting: No more than 10 pounds Bathing: No limitations Exercise/Sports: As tolerated Weightbearing: Full weightbearing Non-emergency contact: Primary Care Provider and Surgeon Call non-emergency contact if: you have any medication questions and your symptoms worsen Follow-up/Referrals: Shea Colbert DO [Primary Care Provider] - Diet: Heart Healthy and Low Sodium (2gm) Fluids: 1500ml (6 cups) Diet Texture: Easy to Chew Addtl Attending Provider Instructions: You came to the hospital for weakness, you were found to have a UTI. You recieved antibiotics for 7 days While you were here, you were noted to have fevers and loose stools. You are a C diff carrier so you were treated for presumed C diff colitis. You received 5 days worth of Dificid 200 mg twice daily, you will be transitioned to p.o. vancomycin upon discharge for 5 more days. INR today was 2.6. Resume your home dose of Coumadin upon discharge. Get your blood work PT/INR in 2 to 3 days upon discharge, maintain close follow-up with Coumadin clinic for dose appropriateness. Please follow up with your spine surgeon for your ongoing back pain. You had an MRI Lumbar spine here. Your TSH was elevated while in hospital, follow-up with your PCP in 3 months for repeat thyroid function test. Take medications as prescribed. Pending Studies at Discharge: No Stand-Alone Forms: My [facility] Skilled Items Patient informed of condition?: Yes DNR: No Discharge Level of Care: Acute rehab Communicable Disease: Yes Discharge Prognosis: Stable Lines: None Urinary Catheter: No Medications and DC Order Prescriptions: New ferrous sulfate 325 mg (65 mg iron) Tablet,Delayed Release (Dr/Ec) 325 mg PO BIDM Qty: 60 RF: 0 Saccharomyces boulardii [Florastor] 250 mg Capsule 250 mg PO DAILY 10 Days Qty: 10 RF: 0 lidocaine 5 % Adhesive Patch,Medicated 1 patch transdermal QAM 7 Days Qty: 7 RF: 0 acetaminophen 325 mg Tablet 650 mg PO TID PRN (Reason: fever or pain) 30 Days Qty: 180 RF: 0 tramadol 50 mg Tablet 25 mg PO Q8H PRN (Reason: severe pain (scale score 7-10)) 3 Days Qty: 5 RF: 0 ondansetron 4 mg tablet,disintegrating 4 mg PO DAILY PRN (Reason: nausea and vomiting) 7 Days Qty: 7 RF: 0 vancomycin 125 mg capsule 125 mg PO Q6H 5 Days Qty: 20 RF: 0 Continued multivitamin Tablet 1 tab PO QAM RF: 0 atorvastatin 40 mg tablet 40 mg PO QAM RF: 0 metoprolol succinate 50 mg tablet extended release 24 hr 50 mg PO BID RF: 0 prednisone 5 mg Tablet 5 mg PO QAM RF: 0 coenzyme Q10 10 mg Capsule 10 mg PO QPM RF: 0 hydrochlorothiazide 25 mg Tablet 25 mg PO DAILY PRN (Reason: Fluid Retention) RF: 0 leflunomide [Arava] 10 mg tablet 20 mg PO QAM RF: 0 folic acid 1 mg Tablet 2 mg PO QAM RF: 0 methotrexate sodium 2.5 mg tablet 10 mg PO FR RF: 0 clopidogrel 75 mg tablet 75 mg PO QAM RF: 0 ropinirole 3 mg tablet 3 mg PO HS PRN (Reason: Restless Leg(S)) RF: 0 amlodipine [Norvasc] 5 mg Tablet 5 mg PO QAM Qty: 30 RF: 1 pantoprazole 40 mg tablet,delayed release (DR/EC) 40 mg PO DAILY RF: 0 ezetimibe 10 mg tablet 10 mg PO DAILY RF: 0 sennosides [senna] 8.6 mg Tablet 8.6 mg PO DAILY RF: 0 warfarin 2.5 mg tablet 2.5 mg PO [id number] RF: 0 warfarin 2.5 mg Tablet 1.25 mg PO WK RF: 0 Changed gabapentin 100 mg capsule 200 mg PO TID Qty: 0 RF: 0 Discharge Orders: Discharge Order (Routine); Ordered 05/20/21 Ordered By: Gretta Wong/Other Patient Handouts: CPAP, CPAP Admission Data Admit Date/Time: 05/04/21 20:36 Attending Provider: Gretta Gastelum Admit Provider: Juan Francisco Liu Primary Care Provider: Shea Coblert Other Providers: Juan Francisco Liu ; Peter Washington ; Akash Mendoza ; Terence Blanchard ; Devonte Colbert ; Julio Cesar Silva ; Abimael Bergman ; Gabbi Becker ; Jasmin Prince ; Ana Lilia West ; Thang Morales ; [facility] ; Robert Gonzalez ; Tom Vega ; Chiki He ; Ashu Downs ; Rick Jaramillo I. ; Nilson Briscoe II ; Camelia Valdes ; Abimael Ellis ; Liang Nazario Other Interventions: Discharge Summary Assessment (RN) Last Done: 05/20/21 13:01
== END 2021-05-20 15:11 | DRG 689 ==
LOC: ED 15:34 → SUATTDRO 20:36 → 2S 20:36 → 2N 05-09 21:59 → 2W 05-18 16:31

== ENCOUNTER 2021-09-03 11:39 | Observation (INO) ==
--- NOTE | 2021-09-03 12:15 | Emergency Department Note ---
Impression & Plan Central retinal artery occlusion of right eye ED Provider Note NAME: MARCELLA YOUNGBLOOD AGE: 80 SEX: F : 1940 ARRIVES VIA: Walk-In INFORMANT: Patient, patient's family member ED PROVIDER(S): Valentin Castro DO CHIEF COMPLAINT: Decreased vision HPI: The patient is an 80-year-old female who presented to the emergency department for an evaluation of strokelike symptoms. The patient states that she has had problems with her right eye for approximately 1 week at least. The patient's son is providing the history as well. The patient went to see her primary eye doctor last week because of trouble with her right eye. She was scheduled to follow-up with a retina specialist today. She had dilation of her right eye and then direct visualization of the retina. She was found to have a retinal artery occlusion according to her son and was referred to the emergency department for further evaluation. The patient states she has noticed no chest pain. She denies having any shortness of breath. She denies having any lower extremity swelling or pain. She is had no weakness otherwise. Her speech has been normal. She does have a history of aortic valve replacement. She states she does take Coumadin and she has been compliant without outpatient medication but also takes Plavix. She still notices blurry vision especially with the right eye. ROS: See above HPI for pertinent positives & negatives. A total of 10 systems reviewed and were otherwise negative. PAST MEDICAL HISTORY: See Below PAST SURGICAL HISTORY: See Below FAMILY HISTORY: See Below SOCIAL HISTORY: See Below HOME MEDICATIONS: See Below ALLERGIES: See Below VITALS: See Below PHYSICAL EXAMINATION: GENERAL: Patient is awake alert in no acute distress patient is resting comfortably and showing no signs of anxiety EYES: The conjunctivae are clear. Right pupil is dilated and minimally reactive to light. The left pupil is normal size and reactive to light. EARS, NOSE, MOUTH AND THROAT: The nose is without any evidence of any deformity. NECK: The neck is nontender and supple. RESPIRATORY: Normal respiratory effort is noted there is no evidence of wheezing rhonchi or rales CARDIOVASCULAR: Regular rate and rhythm noted there no murmurs rubs or gallops normal S1 normal S2. GASTROINTESTINAL: The abdomen is soft. Abdomen is nontender. MUSCULOSKELETAL/EXTREMITIES: There is no evidence of gross deformity full range of motion is noted in the hips and shoulders. SKIN: Lower extremities show pedal edema. Skin is warm and dry. NEUROLOGIC: Patient is awake alert and oriented x3. Strength was symmetric. 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 MEDICAL DECISION MAKING: Patient is an 80-year-old female who presented to the emergency department for an evaluation of decreased vision in her right eye. The patient has had ongoing symptoms for about a week. According to family symptoms may have been ongoing for longer than this. The patient had an appointment with her primary eye doctor last week. She was set up with a retinal specialist this week. Retinal specialist found that the patient has a central retinal artery occlusion. I discussed the patient's laboratory and radiographic studies with her. Given her history of valve replacement and anticoagulation use I still feel the patient may require further inpatient management. For this reason her case was discussed with the inpatient hospitalist team. Triage Nursing notes reviewed. Prior medical records reviewed Vital Signs: reviewed and remarkable for elevated blood pressure. Differential diagnosis: Infection, dehydration, metabolic abnormality, hypo/hyperglycemia, electrolyte disturbance, anemia, hypoxia, cardiac sources, intracerebral event, toxicologic, neurologic, as well as other pathologies. ER treatment provided: See below Diagnostics interpreted by me: ECG: EKG was obtained in the emergency department. My interpretation is sinus rhythm with first-degree block at 72 bpm. LVH was suggested by voltage criteria. Nonspecific ST segment abnormalities were noted. This was corrected with tracing from August 21, 2021. No changes were noted. Cardiac Monitoring: An order was placed for continuous cardiac monitoring. The monitor shows a rate of 74 bpm with sinus rhythm. Laboratory studies: As stated above and show below. Imaging studies: See below Consultation(s): I discussed his case with Skye who is on-call for the [facility] hospitalist group. Past Med/Surg History Medical History CAD (coronary artery disease) Chronic anticoagulation CKD (chronic kidney disease) stage 3, GFR 30-59 ml/min Diverticular disease hx diverticulitis GERD (gastroesophageal reflux disease) History of DVT (deep vein thrombosis) a few years ago. remote h/o PE as well. on detention anticoagulation HLD (hyperlipidemia) HTN (hypertension) Lumbar radiculopathy Obstructive sleep apnea WEARS O2 AT 2L AT HS On home oxygen therapy 2L AT HS Paroxysmal SVT (supraventricular tachycardia) Rheumatoid arthritis RLS (restless legs syndrome) Severe aortic stenosis SVT (supraventricular tachycardia) Surgical History H/O colonoscopy H/O eye surgery LEFT History of carpal tunnel surgery RT/LEFT History of esophagogastroduodenoscopy (EGD) History of heart artery stent 03/18/2020-TYLER x 2 to LAD History of lumbar fusion History of tooth extraction History of total knee replacement RT/LEFT S/P CHANNING-BSO S/P TAVR (transcatheter aortic valve replacement) Family History Other Heart disease No family history of adverse response to anesthesia Rheumatoid arthritis Social History Smoking Status: Never smoker Tobacco Type: Cigarettes Second Hand Exposure: Yes (IN THE PAST); Hx Alcohol Use: No Hx Substance Use: No Preferred Language: Australian Communication Ability: Effective Hotel And Dining Room Cashier Required: No Beliefs That Will Affect Care: None marital status: Current Living Situation: Spouse Current Living Situation Comment: Lives with How many Children do You have: 1 Feels Safe at Home: Yes Assistive Devices: Glasses, Oxygen - Continuous and Walker Allergies Allergies Allergy/AdvReac Type Severity Reaction Status Date / Time baclofen Allergy Mild DIZZY Verified 09/03/21 13:18 Penicillins Allergy Mild RASH Verified 09/03/21 13:18 Sulfa (Sulfonamide Allergy Mild HEADACHE Verified 09/03/21 13:18 Antibiotics) Home Meds Home Medications Medication Instructions Recorded Confirmed atorvastatin 40 mg tablet 40 mg PO QAM 07/01/18 09/03/21 metoprolol succinate 50 mg 50 mg PO BID 07/01/18 09/03/21 tablet,extended release 24 hr prednisone 5 mg tablet 5 mg PO QAM 07/01/18 09/03/21 folic acid 1 mg tablet 2 mg PO QAM 10/17/19 09/03/21 methotrexate sodium 2.5 mg tablet 10 mg PO FR 11/14/19 09/03/21 clopidogrel 75 mg tablet 75 mg PO QAM 05/09/20 09/03/21 ezetimibe 10 mg tablet 10 mg PO QAM 04/21/21 09/03/21 pantoprazole 40 mg tablet,delayed 40 mg PO QAM 04/21/21 09/03/21 release warfarin 2.5 mg tablet See Rx Instructions .ROUTE .COMPLEX 05/04/21 09/03/21 ferrous sulfate 325 mg (65 mg 325 mg PO BID 08/21/21 09/03/21 iron) tablet leflunomide 20 mg tablet 20 mg PO QAM 08/21/21 09/03/21 ondansetron 4 mg disintegrating 4 mg TRANSLINGUAL DAILY PRN 08/21/21 09/03/21 tablet tramadol 50 mg tablet 50 mg PO BID 08/21/21 09/03/21 Saccharomyces boulardii 250 mg 250 mg PO QAM 09/03/21 09/03/21 capsule (Florastor) cyanocobalamin (vitamin B-12) 500 500 mcg PO QAM 09/03/21 09/03/21 mcg tablet (Vitamin B-12) levothyroxine 50 mcg tablet 50 mcg PO QAM 09/03/21 09/03/21 multivit,tx with iron 27 1 tab PO QAM 09/03/21 09/03/21 sm-apigyhr-gdtqs acid 0.4 mg-minerals tablet Previous Rx's Medication Instructions Recorded amlodipine 5 mg tablet (Norvasc) 5 mg PO QAM #30 tab 05/10/20 gabapentin 100 mg capsule 200 mg PO TID #0 cap 05/20/21 Results & Data (ED) Vital Signs Vital Signs - 24 hr 09/03/21 11:42 09/03/21 12:02 09/03/21 12:03 Temperature 36.8 C Temperature Source Temporal Artery Scan Pulse Rate 68 Pulse Rate [Apical] 75 74 Respiratory Rate 20 16 16 Respiratory Effort / Characteristics Non-Labored Spontaneous Respiratory Depth Normal Respiratory Pattern Regular Blood Pressure 143/82 H Blood Pressure [Left Arm] 141/78 H Blood Pressure Mean 102 Blood Pressure Mean [Left Arm] 99 Pulse Oximetry 96 99 95 Oxygen Delivery Method Room Air Room Air Room Air Oxygen Flow Rate 0 Sepsis Recent Fever Within 48 Hours No Sepsis New/Unexplained Change in Mental Status No Sepsis Action Taken by Nursing No Action Required Home Medications Current Medication List: was personally reviewed by me Laboratory Data Attestation: I reviewed the patient's lab results. Result diagrams: 09/03/21 12:14 09/03/21 12:14 Lab Results 09/03/21 09/03/21 09/03/21 Range/Units 12:14 12:14 12:14 WBC 4.54 L (4.8-10.8) K/uL RBC 2.92 L (4.2-5.4) M/uL Hgb 10.3 L (12.0-16.0) g/dL Hct 31.8 L (37-47) % MCV 108.9 H (80-100) fL MCH 35.3 H (25-34) pg MCHC 32.4 (32-36) g/dL RDW Std Deviation 63.7 H (36.4-46.3) fL RDW Coeff of Keila 16.6 H (11.5-14.5) % Plt Count 197 (130-400) K/uL MPV 10.7 H (7.4-10.4) fL Immature Gran % (Auto) 0.4 % Neut % (Auto) 84.6 % Lymph % (Auto) 5.9 % Greene % (Auto) 6.4 % Eos % (Auto) 2.0 % Baso % (Auto) 0.7 % Neut # (Auto) 3.84 (1.4-6.5) K/uL Lymph # (Auto) 0.27 L (1.2-3.4) K/uL Greene # (Auto) 0.29 (0.11-0.59) K/uL Eos # (Auto) 0.09 (0-0.5) K/uL Baso # (Auto) 0.03 (0-0.2) K/uL Immature Gran # (Auto) 0.02 (0.00-0.02) K/uL PT Cancelled INR Cancelled APTT Cancelled PTT Ratio Cancelled Sodium TNP Potassium TNP Chloride 105 (98-107) mmol/L Carbon Dioxide 26 (21-32) mmol/L Anion Gap TNP BUN 18 (6-23) mg/dl Creatinine 0.95 (0.6-1.2) mg/dl Est Cr Clr Drug Dosing Not Reportable Est GFR ( Amer) 65.1 ml/min Est GFR (Non-Af Amer) 56.2 ml/min BUN/Creatinine Ratio 18.9 (10-20) Glucose 107 H (70-99(Fasting)) mg/dl Calcium 9.1 (8.5-10.1) mg/dl Magnesium TNP Total Bilirubin 1.0 (0.2-1.0) mg/dl AST TNP ALT 29 (7-52) U/L Alkaline Phosphatase 77 (34-104) U/L Troponin I High Sens 11.0 (0-14) pg/ml Total Protein 7.0 (6.0-8.3) gm/dl Albumin 4.1 (3.4-5.0) gm/dl Globulin 2.9 (2.5-4.0) gm/dl Albumin/Globulin Ratio 1.4 (0.9-2) SARS-CoV-2, RNA, NAAT (NEGATIVE) 09/03/21 Range/Units 12:16 WBC (4.8-10.8) K/uL RBC (4.2-5.4) M/uL Hgb (12.0-16.0) g/dL Hct (37-47) % MCV (80-100) fL MCH (25-34) pg MCHC (32-36) g/dL RDW Std Deviation (36.4-46.3) fL RDW Coeff of Keila (11.5-14.5) % Plt Count (130-400) K/uL MPV (7.4-10.4) fL Immature Gran % (Auto) % Neut % (Auto) % Lymph % (Auto) % Greene % (Auto) % Eos % (Auto) % Baso % (Auto) % Neut # (Auto) (1.4-6.5) K/uL Lymph # (Auto) (1.2-3.4) K/uL Greene # (Auto) (0.11-0.59) K/uL Eos # (Auto) (0-0.5) K/uL Baso # (Auto) (0-0.2) K/uL Immature Gran # (Auto) (0.00-0.02) K/uL PT INR APTT PTT Ratio Sodium Potassium Chloride (98-107) mmol/L Carbon Dioxide (21-32) mmol/L Anion Gap BUN (6-23) mg/dl Creatinine (0.6-1.2) mg/dl Est Cr Clr Drug Dosing Est GFR ( Amer) ml/min Est GFR (Non-Af Amer) ml/min BUN/Creatinine Ratio (10-20) Glucose (70-99(Fasting)) mg/dl Calcium (8.5-10.1) mg/dl Magnesium Total Bilirubin (0.2-1.0) mg/dl AST ALT (7-52) U/L Alkaline Phosphatase (34-104) U/L Troponin I High Sens (0-14) pg/ml Total Protein (6.0-8.3) gm/dl Albumin (3.4-5.0) gm/dl Globulin (2.5-4.0) gm/dl Albumin/Globulin Ratio (0.9-2) SARS-CoV-2, RNA, NAAT NEGATIVE (NEGATIVE) Administered Medications Discontinued Medications Ioversol (Optiray 320 125ml) 121 ml IV ONCE ONE Stop: 09/03/21 14:08 Last Admin: 09/03/21 14:07 Dose: 121 ml Documented by: [id number] Imaging Data Radiologist's Impression: Chest X-Ray 09/03/21 11:56 XR chest 1V portable HISTORY: 80 years-old Female Stroke Like Symptoms acute stroke like symptoms COMPARISON: Chest radiograph 08/21/2021 TECHNIQUE: Portable AP view of the chest FINDINGS: The cardiac silhouette is enlarged. No pneumothorax, large pleural effusion or overt pulmonary edema. Lungs are hypoinflated. Mild subsegmental left basilar opacities are noted along with unchanged interstitial coarsening. Endograft of t he aortic valve. Degenerative changes of the shoulders and spine. IMPRESSION: 1. Cardiomegaly with unchanged interstitial coarsening. 2. Mild left basilar opacities suggest probable atelectasis. ACT 112: Negative or not required by law. The above report was generated using voice recognition software. It may contain grammatical, syntax or spelling errors. Electronically signed by: Fransico Varner M.D. 09/03/2021 12:[address] 09/03/21 11:56 CT head/brain wo con CLINICAL HISTORY: 80 years-old Female with Stroke Like Symptoms. Acute strokelike symptoms TECHNIQUE: Multiple axial CT images of the head were obtained without contrast. A dose lowering technique was utilized adhering to the principles of ALARA. COMPARISON: CTA head and neck of same day, head CT 08/21/2021 FINDINGS: No acute intracranial hemorrhage, midline shift, intracranial mass, hydrocephalus, territorial ischemia or abnormal extra-axial collection. Age- related involutional changes. White matter hypodensities suggest chronic microvascular ischemic disease. Cerebral vascular calcifications. The calvarium is intact. Prior bilateral lens replacement. The paranasal sinuses, mastoid air cells, and middle ear cavities are clear. IMPRESSION: No acute intracranial abnormality. ACT 112: Negative or not required by law. The above report was generated using voice recognition software. It may contain grammatical, syntax or spelling errors. Electronically signed by: Fransico Varner M.D. 09/03/2021 2:14 PM Head CTA 09/03/21 11:56 CT ANGIOGRAM OF THE BRAIN; CT ANGIOGRAM OF THE NECK CLINICAL HISTORY: Strokelike symptoms. COMPARISON STUDY: Unenhanced CT of the brain performed the same day 09/03/2021. TECHNIQUE: Following the IV administration of 121 of Optiray 320, CT angiogram of the head and neck was performed from the aortic arch to the vertex. Images are reviewed in the axial, sagittal, and coronal planes. 3-D MIPS images are created and assessed. IV contrast was administered without complication. All measurements were calculated based on NASCET criteria. A dose lowering technique was utilized adhering to the principles of ALARA. CT DOSE: 1012.54 mGy.cm FINDINGS: Brain parenchyma: There is age-related involutional change noting moderate subcortical and periventricular microangiopathic disease. There is no evidence of hemorrhage, mass effect, or acute territorial ischemia noting angiographic phase technique. There is no evidence of enhancing mass lesion on the angiogram phase images. The ventricles, sulci, and cisterns are prominent secondary to involutional change. Chamberlain-white matter differentiation is preserved. No extra- axial fluid collection is seen. Thoracic aorta: There is atherosclerotic calcification of the thoracic aorta. Visualized portions of the thoracic aorta are normal in caliber. The aortic arch demonstrates standard 3-vessel anatomy. Right carotid arterial system: The right common carotid artery is widely patent. Advanced atherosclerotic plaque in the carotid bulb causes less than 50% luminal narrowing at the origin of the right internal carotid artery. The remainder of the right internal carotid artery is widely patent, as is the right external carotid artery. Left carotid arterial system: The left common carotid artery is widely patent, as are the left internal and external carotid arteries. Calcified plaque is noted in the carotid bulb. Vertebral arteries: The vertebral arteries are widely patent bilaterally and codominant. Subclavian arteries: Widely patent bilaterally. Intracranial vasculature: The internal carotid arteries are patent at the skull base, as are the anterior and middle cerebral arteries bilaterally. The verteb robasilar system and posterior cerebral arteries are widely patent. The vertebral arteries are codominant. There is origin of the right posterior cerebral artery. There is no aneurysm, high-grade stenosis, or focal vessel cut off seen throughout the intracranial circulation. Jugular veins: Patent bilaterally. Dural sinuses: Patent. Lung apices: Partially visualized upper lobe lung parenchyma appears clear. Soft tissues: The visualized pharyngeal soft tissues are normal in appearance no ting angiographic phase technique. The oropharyngeal airway appears widely patent. The thyroid gland is heterogeneous. The salivary glands are normal in appearance. No cervical lymphadenopathy is seen. Skeletal structures: The skeletal structures are osteopenic. The calvarium appears intact. The cervical spine is maintained noting multilevel spondylosis. No lytic or blastic lesion is seen. Orbits: The bony orbits are intact. Orbital contents are normal as visualized noting bilateral ocular lens implants. Sinuses and mastoids: The paranasal sinuses are clear. The mastoid air cells are well pneumatized. IMPRESSION: 1. There is no evidence of hemorrhage, mass effect, or acute territorial ischemia noting angiographic phase technique. 2. Unremarkable CT angiogram of the brain. 3. There is less than 50% stenosis at the origin of the right internal carotid artery. 4. Otherwise unremarkable CT angiogram of the neck. ACT 112: Negative or not required by law. Electronically signed by: Vitaliy Tate M.D. 09/03/2021 2:31 PM Neck CTA 09/03/21 11:56 CT ANGIOGRAM OF THE BRAIN; CT ANGIOGRAM OF THE NECK CLINICAL HISTORY: Strokelike symptoms. COMPARISON STUDY: Unenhanced CT of the brain performed the same day 09/03/2021. TECHNIQUE: Following the IV administration of 121 of Optiray 320, CT angiogram of the head and neck was performed from the aortic arch to the vertex. Images are reviewed in the axial, sagittal, and coronal planes. 3-D MIPS images are created and assessed. IV contrast was administered without complication. All measurements were calculated based on NASCET criteria. A dose lowering technique was utilized adhering to the principles of ALARA. CT DOSE: 1012.54 mGy.cm FINDINGS: Brain parenchyma: There is age-related involutional change noting moderate subcortical and periventricular microangiopathic disease. There is no evidence of hemorrhage, mass effect, or acute territorial ischemia noting angiographic phase technique. There is no evidence of enhancing mass lesion on the angiogram phase images. The ventricles, sulci, and cisterns are prominent secondary to involutional change. Chamberlain-white matter differentiation is preserved. No extra- axial fluid collection is seen. Thoracic aorta: There is atherosclerotic calcification of the thoracic aorta. Visualized portions of the thoracic aorta are normal in caliber. The aortic arch demonstrates standard 3-vessel anatomy. Right carotid arterial system: The right common carotid artery is widely patent. Advanced atherosclerotic plaque in the carotid bulb causes less than 50% luminal narrowing at the origin of the right internal carotid artery. The remainder of the right internal carotid artery is widely patent, as is the right external carotid artery. Left carotid arterial system: The left common carotid artery is widely patent, as are the left internal and external carotid arteries. Calcified plaque is noted in the carotid bulb. Vertebral arteries: The vertebral arteries are widely patent bilaterally and codominant. Subclavian arteries: Widely patent bilaterally. Intracranial vasculature: The internal carotid arteries are patent at the skull base, as are the anterior and middle cerebral arteries bilaterally. The vertebrobasilar system and posterior cerebral arteries are widely patent. The vertebral arteries are codominant. There is origin of the right posterior cerebral artery. There is no aneurysm, high-grade stenosis, or focal vessel cut off seen throughout the intracranial circulation. Jugular veins: Patent bilaterally. Dural sinuses: Patent. Lung apices: Partially visualized upper lobe lung parenchyma appears clear. Soft tissues: The visualized pharyngeal soft tissues are normal in appearance noting angiographic phase technique. The oropharyngeal airway appears widely patent. The thyroid gland is heterogeneous. The salivary glands are normal in appearance. No cervical lymphadenopathy is seen. Skeletal structures: The skeletal structures are osteopenic. The calvarium appears intact. The cervical spine is maintained noting multilevel spondylosis. No lytic or blastic lesion is seen. Orbits: The bony orbits are intact. Orbital contents are normal as visualized noting bilateral ocular lens implants. Sinuses and mastoids: The paranasal sinuses are clear. The mastoid air cells are well pneumatized. IMPRESSION: 1. There is no evidence of hemorrhage, mass effect, or acute territorial ischemia noting angiographic phase technique. 2. Unremarkable CT angiogram of the brain. 3. There is less than 50% stenosis at the origin of the right internal carotid artery. 4. Otherwise unremarkable CT angiogram of the neck. ACT 112: Negative or not required by law. Electronically signed by: Vitaliy Tate M.D. 09/03/2021 2:31 PM Discharge Plan Visit Data Chief Complaint: Stroke/CVA Symptoms Stated Complaint: vision issues, dr sent for stroke protocol workup ED Provider: Valentin Castro Discharge Problem: Central retinal artery occlusion of right eye Patient Disposition: Being Evaluated by Hospitalist Forms Stand Alone Forms: My [facility] Prescriptions Prescriptions: No Action atorvastatin 40 mg tablet 40 mg PO QAM RF: 0 metoprolol succinate 50 mg tablet extended release 24 hr 50 mg PO BID RF: 0 prednisone 5 mg Tablet 5 mg PO QAM RF: 0 folic acid 1 mg Tablet 2 mg PO QAM RF: 0 methotrexate sodium 2.5 mg tablet 10 mg PO FR RF: 0 clopidogrel 75 mg tablet 75 mg PO QAM RF: 0 amlodipine [Norvasc] 5 mg Tablet 5 mg PO QAM Qty: 30 RF: 1 pantoprazole 40 mg tablet,delayed release (DR/EC) 40 mg PO QAM RF: 0 ezetimibe 10 mg tablet 10 mg PO QAM RF: 0 leflunomide 20 mg tablet 20 mg PO QAM RF: 0 ferrous sulfate 325 mg (65 mg iron) tablet 325 mg PO BID RF: 0 tramadol 50 mg tablet 50 mg PO BID RF: 0 ondansetron 4 mg tablet,disintegrating 4 mg translingual DAILY PRN (Reason: Nausea) RF: 0 levothyroxine 50 mcg tablet 50 mcg PO QAM RF: 0 Thera-M Multiple Vitamins 27-0.4 mg Tablet 1 tab PO QAM RF: 0 Saccharomyces boulardii [Florastor] 250 mg Capsule 250 mg PO QAM RF: 0 cyanocobalamin (vitamin B-12) [Vitamin B-12] 500 mcg Tablet 500 mcg PO QAM RF: 0 warfarin 2.5 mg Tablet See Rx Instructions .ROUTE .COMPLEX RF: 0 gabapentin 100 mg capsule 200 mg PO TID Qty: 0 RF: 0 [facility]errals [facility]Primary Care Provider[facility] -
--- NOTE | 2021-09-03 12:50 | XRay Report ---
XR chest 1V portable HISTORY: 80 years-old Female Stroke Like Symptoms acute stroke like symptoms COMPARISON: Chest radiograph 08/21/2021 TECHNIQUE: Portable AP view of the chest FINDINGS: The cardiac silhouette is enlarged. No pneumothorax, large pleural effusion or overt pulmonary edema. Lungs are hypoinflated. Mild subsegmental left basilar opacities are noted along with unchanged inte rstitial coarsening. Endograft of the aortic valve. Degenerative changes of the shoulders and spine. IMPRESSION: 1. Cardiomegaly with unchanged interstitial coarsening. 2. Mild left basilar opacities suggest probable atelectasis. ACT 112: Negative or not required by law. The above report was generated using voice recognition software. It may contain grammatical, syntax o r spelling errors. Electronically signed by: Fransico Varner M.D. 09/03/2021 12:48 PM
[2021-09-03 13:17] LABS: Basophils # (auto) 0.03 K/uL (0-0.2); Basophils % (auto) 0.7 %; Eosinophils # (auto) 0.09 K/uL (0-0.5); Hematocrit (blood only) 31.8 % (37-47); Hemoglobin 10.3 g/dL (12.0-16.0); Immature Granulocytes # (auto) 0.02 K/uL (0.00-0.02); Immature Granulocytes % (auto) 0.4 %; Lymphocytes # (auto) 0.27 K/uL (1.2-3.4); Lymphocytes % (auto) 5.9 %; Mean Corpuscular Hemoglobin 35.3 pg (25-34); Mean Corpuscular Hgb Conc 32.4 g/dL (32-36); Mean Corpuscular Volume 108.9 fL (80-100); Mean Platelet Volume 10.7 fL (7.4-10.4); Monocytes # (auto) 0.29 K/uL (0.11-0.59); Monocytes % (auto) 6.4 %; Neutrophils # (auto) 3.84 K/uL (1.4-6.5); Neutrophils % (auto) 84.6 %; Platelet Count 197 K/uL (130-400); RDW Coefficient of Variation 16.6 % (11.5-14.5); RDW Standard Deviation 63.7 fL (36.4-46.3); Red Blood Count 2.92 M/uL (4.2-5.4); White Blood Count 4.54 K/uL (4.8-10.8)
[2021-09-03 13:43] LABS: Alanine Aminotransferase 29 U/L (7-52); Albumin Globulin Ratio 1.4 (0.9-2); Albumin Level 4.1 gm/dl (3.4-5.0); Alkaline Phosphatase 77 U/L (34-104); BUN Creatinine Ratio 18.9 (10-20); Blood Urea Nitrogen 18 mg/dl (6-23); Calcium 9.1 mg/dl (8.5-10.1); Carbon Dioxide 26 mmol/L (21-32); Chloride 105 mmol/L (98-107); Est GFR (African American) 65.1 ml/min; Est GFR (Non-African American) 56.2 ml/min; Globulin 2.9 gm/dl (2.5-4.0); Glucose 107 mg/dl (70-99(Fasting))
[2021-09-03] MEDS ORDERED: OPTIRAY 320 125ml IV ONE (14:07)
--- NOTE | 2021-09-03 14:16 | CT Scan Report ---
CT head/brain wo con CLINICAL HISTORY: 80 years-old Female with Stroke Like Symptoms. Acute strokelike symptoms TECHNIQUE: Multiple axial CT images of the head were obtained without contrast. A dose lowering tech nique was utilized adhering to the principles of ALARA. COMPARISON: CTA head and neck of same day, head CT 08/21/2021 FINDINGS: No acute intracranial hemorrhage, midline shift, intracranial mass, hydrocephalus, territorial ischem ia or abnormal extra-axial collection. Age-related involutional changes. White matter hypodensities s uggest chronic microvascular ischemic disease. Cerebral vascular calcifications. The calvarium is intact. Prior bilateral lens replacement. The paranasal sinuses, mastoid air cells, and middle ear cavities are clear. IMPRESSION: No acute intracranial abnormality. ACT 112: Negative or not required by law. The above report was generated using voice recognition software. It may contain grammatical, syntax o r spelling errors. Electronically signed by: Fransico Varner M.D. 09/03/2021 2:14 PM
--- NOTE | 2021-09-03 14:33 | CT Scan Report ---
CT ANGIOGRAM OF THE BRAIN; CT ANGIOGRAM OF THE NECK CLINICAL HISTORY: Strokelike symptoms. COMPARISON STUDY: Unenhanced CT of the brain performed the same day 09/03/2021. TECHNIQUE: Following the IV administration of 121 of Optiray 320, CT angiogram of the head and neck w as performed from the aortic arch to the vertex. Images are reviewed in the axial, sagittal, and kimani nal planes. 3-D MIPS images are created and assessed. IV contrast was administered without complicati on. All measurements were calculated based on NASCET criteria. A dose lowering technique was utilize d adhering to the principles of ALARA. CT DOSE: 1012.54 mGy.cm FINDINGS: Brain parenchyma: There is age-related involutional change noting moderate subcortical and periventri cular microangiopathic disease. There is no evidence of hemorrhage, mass effect, or acute territorial ischemia noting angiographic phase technique. There is no evidence of enhancing mass lesion on the a ngiogram phase images. The ventricles, sulci, and cisterns are prominent secondary to involutional ch harsha. Chamberlain-white matter differentiation is preserved. No extra-axial fluid collection is seen. Thoracic aorta: There is atherosclerotic calcification of the thoracic aorta. Visualized portions of the thoracic aorta are normal in caliber. The aortic arch demonstrates standard 3-vessel anatomy. Right carotid arterial system: The right common carotid artery is widely patent. Advanced atheroscler otic plaque in the carotid bulb causes less than 50% luminal narrowing at the origin of the right int ernal carotid artery. The remainder of the right internal carotid artery is widely patent, as is the right external carotid artery. Left carotid arterial system: The left common carotid artery is widely patent, as are the left international marketing executive al and external carotid arteries. Calcified plaque is noted in the carotid bulb. Vertebral arteries: The vertebral arteries are widely patent bilaterally and codominant. Subclavian arteries: Widely patent bilaterally. Intracranial vasculature: The internal carotid arteries are patent at the skull base, as are the ante rior and middle cerebral arteries bilaterally. The vertebrobasilar system and posterior cerebral piero hasmukh are widely patent. The vertebral arteries are codominant. There is origin of the right pos terior cerebral artery. There is no aneurysm, high-grade stenosis, or focal vessel cut off seen throu ghout the intracranial circulation. Jugular veins: Patent bilaterally. Dural sinuses: Patent. Lung apices: Partially visualized upper lobe lung parenchyma appears clear. Soft tissues: The visualized pharyngeal soft tissues are normal in appearance noting angiographic pha se technique. The oropharyngeal airway appears widely patent. The thyroid gland is heterogeneous. The salivary glands are normal in appearance. No cervical lymphadenopathy is seen. Skeletal structures: The skeletal structures are osteopenic. The calvarium appears intact. The cervic al spine is maintained noting multilevel spondylosis. No lytic or blastic lesion is seen. Orbits: The bony orbits are intact. Orbital contents are normal as visualized noting bilateral ocular lens implants. Sinuses and mastoids: The paranasal sinuses are clear. The mastoid air cells are well pneumatized. IMPRESSION: 1. There is no evidence of hemorrhage, mass effect, or acute territorial ischemia noting angiographic phase technique. 2. Unremarkable CT angiogram of the brain. 3. There is less than 50% stenosis at the origin of the right internal carotid artery. 4. Otherwise unremarkable CT angiogram of the neck. ACT 112: Negative or not required by law. Electronically signed by: Vitaliy Tate M.D. 09/03/2021 2:31 PM
[2021-09-03 15:29] LABS: INR 2.7 (0.9-1.1); Partial Thromboplastin Ratio 1.4; Partial Thromboplastin Time 37.4 Seconds (21.0-31.0); Prothrombin Time 27.5 Seconds (9.0-12.0)
[2021-09-03 15:49] LABS: Potassium 4.1 mmol/L (3.5-5.1)
--- NOTE | 2021-09-03 15:51 | History & Physical Report ---
Date of Service September 03, 2021 Assessment & Plan (1) Central retinal artery occlusion of right eye: Plan: Patient is 80 y/o F with PMH CAD, s/p TAVR, history of PE on chronic Coumadin, h/o SVT, chronic diastolic heart failure, CKD III, RA on chronic prednisone, chronic anemia, sleep apnea presented to ER at request of retinal specialist for blurry vision right eye x1 week. Today was found to have right eye central retinal artery occlusion.. In ER vitals stable. INR: 2.7 CT head:No acute intracranial abnormality. CTA head and neck: No acute ischemia, no hemorrhage or mass, less than 50% stenosis right internal carotid artery Tele to monitor for arrhythmias lipids, A1c in am MRI brain Echo with bubble study PT/OT consult Continue plavix, warfarin, statin neurology consult (2) Abnormal CXR: Plan: CXR: Cardiomegaly with unchanged interstitial coarsening. Mild left basilar opacities suggest probable atelectasis. 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: Plan: History DVT, PE INR: 2.7 Continue warfarin (5) CAD (coronary artery disease): Plan: Denies chest pain or shortness of breath Continue Plavix, atorvastatin, ezetimibe (6) Severe aortic stenosis: (7) S/P TAVR (transcatheter aortic valve replacement): Plan: Denies chest pain, shortness of breath (8) Chronic heart failure with preserved ejection fraction: Plan: Appears euvolemic (9) Rheumatoid arthritis: Plan: Continue prednisone, leflunomide Hold methotrexate for now (10) Paroxysmal SVT (supraventricular tachycardia): Plan: Continue metoprolol succinate (11) CKD (chronic kidney disease) stage 3, GFR 30-59 ml/min: Plan: Cr: 0.95. Baseline 0.7-0.9 Monitor renal functions, avoid nephrotoxic agents when possible (12) Chronic anemia: Plan: Hgb: 10.3. At baseline Continue ferrous sulfate, B12, folate supplements (13) Obstructive sleep apnea: Plan: CPAP, 2 L O2 at bedtime DVT Prophylaxis On Coumadin INR: Therapeutic Full Code as per discussion with pt Follows with Dr Shea Colbert for routine care Pt was seen and care coordinated with Dr Gastelum. See addendum History of Present Illness Chief Complaint: Vision changes Primary Care Provider: [facility] Patient is 80 y/o F with PMH CAD, s/p TAVR, history of PE on chronic Coumadin, h/o SVT, chronic diastolic heart failure, CKD III, RA on chronic prednisone, chronic anemia, sleep apnea presented to ER at request of retinal specialist for blurry vision right eye x1 week. Patient reports for the past week she has had blurry vision and loss of vision from right eye. She initially reports following up with eye doctor and was referred to retinal specialist. Today she is a retinal specialist and was diagnosed with right eye central retinal artery occlusion. Patient reports having chronic leg weakness and ambulates with a walker or uses wheelchair. Reports a fall on 08/21/2021 and was seen in the ER with no acute fractures noted. She does not feel that she has had increased extremity weakness. Denies any recurrent falls since 08/21/21. Reports chronic bilateral lower extremity edema, worse if her legs are dangling, improved with elevation. Denies any increased edema. Denies fever/chills, diaphoresis, N/V/D/C, RUEDA, dizziness, syncope, neck pain, CP, SOB, orthopnea, palpitations, cough, sore throat, choking, otalgia, rhinorrhea, abdominal pain, paresthesias, rashes, urinary symptoms. In ER CT head:No acute intracranial abnormality. CTA head and neck: No acute ischemia, no hemorrhage or mass, less than 50% stenosis right internal carotid artery INR: 2.7 Allergies Allergy/AdvReac Type Severity Reaction Status Date / Time baclofen Allergy Mild DIZZY Verified 09/03/21 13:18 Penicillins Allergy Mild RASH Verified 09/03/21 13:18 Sulfa (Sulfonamide Allergy Mild HEADACHE Verified 09/03/21 13:18 Antibiotics) Home Medications Medication Instructions Recorded Confirmed Type atorvastatin 40 mg tablet 40 mg PO QAM 07/01/18 09/03/21 History metoprolol succinate 50 mg 50 mg PO BID 07/01/18 09/03/21 History tablet,extended release 24 hr prednisone 5 mg tablet 5 mg PO QAM 07/01/18 09/03/21 History folic acid 1 mg tablet 2 mg PO QAM 10/17/19 09/03/21 History methotrexate sodium 2.5 mg tablet 10 mg PO FR 11/14/19 09/03/21 History clopidogrel 75 mg tablet 75 mg PO QAM 05/09/20 09/03/21 History amlodipine 5 mg tablet (Norvasc) 5 mg PO QAM #30 tab 05/10/20 09/03/21 Rx ezetimibe 10 mg tablet 10 mg PO QAM 04/21/21 09/03/21 History pantoprazole 40 mg tablet,delayed 40 mg PO QAM 04/21/21 09/03/21 History release warfarin 2.5 mg tablet See Rx Instructions .ROUTE .COMPLEX 05/04/21 09/03/21 History gabapentin 100 mg capsule 200 mg PO TID #0 cap 05/20/21 09/03/21 Rx ferrous sulfate 325 mg (65 mg 325 mg PO BID 08/21/21 09/03/21 History iron) tablet leflunomide 20 mg tablet 20 mg PO QAM 08/21/21 09/03/21 History ondansetron 4 mg disintegrating 4 mg TRANSLINGUAL DAILY PRN 08/21/21 09/03/21 History tablet tramadol 50 mg tablet 50 mg PO BID 08/21/21 09/03/21 History Saccharomyces boulardii 250 mg 250 mg PO QAM 09/03/21 09/03/21 History capsule (Florastor) cyanocobalamin (vitamin B-12) 500 500 mcg PO QAM 09/03/21 09/03/21 History mcg tablet (Vitamin B-12) levothyroxine 50 mcg tablet 50 mcg PO QAM 09/03/21 09/03/21 History multivit,tx with iron 27 1 tab PO QAM 09/03/21 09/03/21 History ty-qiqmkad-irraj acid 0.4 mg-minerals tablet Past Med/Surg History Medical History (Updated 09/03/21 @ 17:00 by Jalyn Guillen PA-C) CAD (coronary artery disease) Chronic anticoagulation CKD (chronic kidney disease) stage 3, GFR 30-59 ml/min Diverticular disease hx diverticulitis GERD (gastroesophageal reflux disease) History of DVT (deep vein thrombosis) a few years ago. remote h/o PE as well. on [facility] HLD (hyperlipidemia) HTN (hypertension) Lumbar radiculopathy Obstructive sleep apnea WEARS O2 AT 2L AT HS On home oxygen therapy 2L AT HS Paroxysmal SVT (supraventricular tachycardia) Rheumatoid arthritis RLS (restless legs syndrome) Severe aortic stenosis SVT (supraventricular tachycardia) Surgical History H/O colonoscopy H/O eye surgery LEFT History of carpal tunnel surgery RT/LEFT History of esophagogastroduodenoscopy (EGD) History of heart artery stent 03/18/2020-TYLER x 2 to LAD History of lumbar fusion History of tooth extraction History of total knee replacement RT/LEFT S/P CHANNING-BSO S/P TAVR (transcatheter aortic valve replacement) Family History Other Heart disease No family history of adverse response to anesthesia Rheumatoid arthritis Social History Smoking Status: Never smoker Tobacco Type: Cigarettes Second Hand Exposure: Yes (IN THE PAST); Hx Alcohol Use: Yes Alcohol type: wine Hx Substance Use: No Preferred Language: Vietnamese Communication Ability: Effective 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 Beliefs That Will Affect Care: None marital status: Current Living Situation: Alone Current Living Situation Comment: Lives with How many Children do You have: 1 Other Information That Helps Us Care for You: No Feels Safe at Home: Yes Safety Concerns: Feels Safe At This Time Assistive Devices: Denture - Upper, Denture - Lower, Hearing Aid - Bilateral and Walker Review of Systems Review of Systems: All systems reviewed & are unremarkable except as noted in HPI & below Physical Exam Physical Exam: General: no distress, WDWN Head: normocephalic, atraumatic Eyes: PERRL, EOM's intact, conjunctiva non-injected, anicteric, Pt reports right eye seeing two blurry objects merging into one object on vision testing (using one pen as object) ENT: hard of hearing, normal inspection external ears, nose, mucous membranes moist Neck: supple, trachea midline Lungs: clear, no respiratory distress, no wheezing/rhonchi/rales CV: RRR, trace pretibial edema Abd: normal BS, soft, non-tender Ext: no cyanosis, no calf tenderness Neuro: Alert, oriented to person, place, month, season. unsure of year. normal affect. Facial sensation is intact and symmetric, face is strong and symmetric, hearing grossly intact, soft palate elevates symmetrically, no dysarthria, Shoulder shrug intact, tongue is midline, normal movement, no fasciculations. RLE 4/5 strength compared to 5/5 on LLE Skin: warm, dry Results & Data Results & Data ([facility]) Vital Signs (Past 12 Hours) Vital Signs Temp Pulse Pulse Resp BP BP Pulse Ox 09/03/21 12:03 74 16 95 09/03/21 12:02 75 16 141/78 H 99 09/03/21 11:42 36.8 C 68 20 143/82 H 96 Laboratory Results Short CBC 09/03/21 Range/Units 12:14 WBC 4.54 L (4.8-10.8) K/uL Hgb 10.3 L (12.0-16.0) g/dL Hct 31.8 L (37-47) % Plt Count 197 (130-400) K/uL BMP 09/03/21 09/03/21 12:14 15:09 Sodium TNP 137 Potassium TNP 4.1 Chloride 105 Carbon Dioxide 26 BUN 18 Creatinine 0.95 Glucose 107 H Calcium 9.1 Liver Function 09/03/21 09/03/21 Range/Units 12:14 15:09 Total Bilirubin 1.0 (0.2-1.0) mg/dl AST TNP 32 ALT 29 (7-52) U/L Alkaline Phosphatase 77 (34-104) U/L Albumin 4.1 (3.4-5.0) gm/dl Diagnostic Findings Chest X-Ray 09/03/21 11:56 XR chest 1V portable HISTORY: 80 years-old Female Stroke Like Symptoms acute stroke like symptoms COMPARISON: Chest radiograph 08/21/2021 TECHNIQUE: Portable AP view of the chest FINDINGS: The cardiac silhouette is enlarged. No pneumothorax, large pleural effusion or overt pulmonary edema. Lungs are hypoinflated. Mild subsegmental left basilar opacities are noted along with unchanged interstitial coarsening. Endograft of the aortic valve. Degenerative changes of the shoulders and spine. IMPRESSION: 1. Cardiomegaly with unchanged interstitial coarsening. 2. Mild left basilar opacities suggest probable atelectasis. ACT 112: Negative or not required by law. The above report was generated using voice recognition software. It may contain grammatical, syntax or spelling errors. Electronically signed by: Fransico Varner M.D. 09/03/2021 12:[address] 09/03/21 11:56 CT head/brain wo con CLINICAL HISTORY: 80 years-old Female with Stroke Like Symptoms. Acute strokelike symptoms TECHNIQUE: Multiple axial CT images of the head were obtained without contrast. A dose lowering technique was utilized adhering to the principles of ALARA. COMPARISON: CTA head and neck of same day, head CT 08/21/2021 FINDINGS: No acute intracranial hemorrhage, midline shift, intracranial mass, hydrocephalus, territorial ischemia or abnormal extra-axial collection. Age- related involutional changes. White matter hypodensities suggest chronic microvascular ischemic disease. Cerebral vascular calcifications. The calvarium is intact. Prior bilateral lens replacement. The paranasal sinuses, mastoid air cells, and middle ear cavities are clear. IMPRESSION: No acute intracranial abnormality. ACT 112: Negative or not required by law. The above report was generated using voice recognition software. It may contain grammatical, syntax or spelling errors. Electronically signed by: Fransico Varner M.D. 09/03/2021 2:14 PM Head CTA 09/03/21 11:56 CT ANGIOGRAM OF THE BRAIN; CT ANGIOGRAM OF THE NECK CLINICAL HISTORY: Strokelike symptoms. COMPARISON STUDY: Unenhanced CT of the brain performed the same day 09/03/2021. TECHNIQUE: Following the IV administration of 121 of Optiray 320, CT angiogram of the head and neck was performed from the aortic arch to the vertex. Images are reviewed in the axial, sagittal, and coronal planes. 3-D MIPS images are created and assessed. IV contrast was administered without complication. All measurements were calculated based on NASCET criteria. A dose lowering technique was utilized adhering to the principles of ALARA. CT DOSE: 1012.54 mGy.cm FINDINGS: Brain parenchyma: There is age-related involutional change noting moderate subcortical and periventricular microangiopathic disease. There is no evidence of hemorrhage, mass effect, or acute territorial ischemia noting angiographic phase technique. There is no evidence of enhancing mass lesion on the angiogram phase images. The ventricles, sulci, and cisterns are prominent secondary to involutional change. Chamberlain-white matter differentiation is preserved. No extra- axial fluid collection is seen. Thoracic aorta: There is atherosclerotic calcification of the thoracic aorta. Visualized portions of the thoracic aorta are normal in caliber. The aortic arch demonstrates standard 3-vessel anatomy. Right carotid arterial system: The right common carotid artery is widely patent. Advanced atherosclerotic plaque in the carotid bulb causes less than 50% luminal narrowing at the origin of the right internal carotid artery. The remainder of the right internal carotid artery is widely patent, as is the right external carotid artery. Left carotid arterial system: The left common carotid artery is widely patent, as are the left internal and external carotid arteries. Calcified plaque is noted in the carotid bulb. Vertebral arteries: The vertebral arteries are widely patent bilaterally and codominant. Subclavian arteries: Widely patent bilaterally. Intracranial vasculature: The internal carotid arteries are patent at the skull base, as are the anterior and middle cerebral arteries bilaterally. The vertebrobasilar system and posterior cerebral arteries are widely patent. The vertebral arteries are codominant. There is origin of the right posterior cerebral artery. There is no aneurysm, high-grade stenosis, or focal vessel cut off seen throughout the intracranial circulation. Jugular veins: Patent bilaterally. Dural sinuses: Patent. Lung apices: Partially visualized upper lobe lung parenchyma appears clear. Soft tissues: The visualized pharyngeal soft tissues are normal in appearance noting angiographic phase technique. The oropharyngeal airway appears widely patent. The thyroid gland is heterogeneous. The salivary glands are normal in appearance. No cervical lymphadenopathy is seen. Skeletal structures: The skeletal structures are osteopenic. The calvarium appears intact. The cervical spine is maintained noting multilevel spondylosis. No lytic or blastic lesion is seen. Orbits: The bony orbits are intact. Orbital contents are normal as visualized noting bilateral ocular lens implants. Sinuses and mastoids: The paranasal sinuses are clear. The mastoid air cells are well pneumatized. IMPRESSION: 1. There is no evidence of hemorrhage, mass effect, or acute territorial ischemia noting angiographic phase technique. 2. Unremarkable CT angiogram of the brain. 3. There is less than 50% stenosis at the origin of the right internal carotid artery. 4. Otherwise unremarkable CT angiogram of the neck. ACT 112: Negative or not required by law. Electronically signed by: Vitaliy Tate M.D. 09/03/2021 2:31 PM Neck CTA 09/03/21 11:56 CT ANGIOGRAM OF THE BRAIN; CT ANGIOGRAM OF THE NECK CLINICAL HISTORY: Strokelike symptoms. COMPARISON STUDY: Unenhanced CT of the brain performed the same day 09/03/2021. TECHNIQUE: Following the IV administration of 121 of Optiray 320, CT angiogram of the head and neck was performed from the aortic arch to the vertex. Images are reviewed in the axial, sagittal, and coronal planes. 3-D MIPS images are created and assessed. IV contrast was administered without complication. All measurements were calculated based on NASCET criteria. A dose lowering technique was utilized adhering to the principles of ALARA. CT DOSE: 1012.54 mGy.cm FINDINGS: Brain parenchyma: There is age-related involutional change noting moderate subcortical and periventricular microangiopathic disease. There is no evidence of hemorrhage, mass effect, or acute territorial ischemia noting angiographic phase technique. There is no evidence of enhancing mass lesion on the angiogram phase images. The ventricles, sulci, and cisterns are prominent secondary to involutional change. Chamberlain-white matter differentiation is preserved. No extra- axial fluid collection is seen. Thoracic aorta: There is atherosclerotic calcification of the thoracic aorta. Visualized portions of the thoracic aorta are normal in caliber. The aortic arch demonstrates standard 3-vessel anatomy. Right carotid arterial system: The right common carotid artery is widely patent. Advanced atherosclerotic plaque in the carotid bulb causes less than 50% luminal narrowing at the origin of the right internal carotid artery. The remainder of the right internal carotid artery is widely patent, as is the right external carotid artery. Left carotid arterial system: The left common carotid artery is widely patent, as are the left internal and external carotid arteries. Calcified plaque is noted in the carotid bulb. Vertebral arteries: The vertebral arteries are widely patent bilaterally and codominant. Subclavian arteries: Widely patent bilaterally. Intracranial vasculature: The internal carotid arteries are patent at the skull base, as are the anterior and middle cerebral arteries bilaterally. The vertebrobasilar system and posterior cerebral arteries are widely patent. The vertebral arteries are codominant. There is origin of the right posterior cerebral artery. There is no aneurysm, high-grade stenosis, or focal vessel cut off seen throughout the intracranial circulation. Jugular veins: Patent bilaterally. Dural sinuses: Patent. Lung apices: Partially visualized upper lobe lung parenchyma appears clear. Soft tissues: The visualized pharyngeal soft tissues are normal in appearance noting angiographic phase technique. The oropharyngeal airway appears widely patent. The thyroid gland is heterogeneous. The salivary glands are normal in appearance. No cervical lymphadenopathy is seen. Skeletal structures: The skeletal structures are osteopenic. The calvarium appears intact. The cervical spine is maintained noting multilevel spondylosis. No lytic or blastic lesion is seen. Orbits: The bony orbits are intact. Orbital contents are normal as visualized noting bilateral ocular lens implants. Sinuses and mastoids: The paranasal sinuses are clear. The mastoid air cells are well pneumatized. IMPRESSION: 1. There is no evidence of hemorrhage, mass effect, or acute territorial ischemia noting angiographic phase technique. 2. Unremarkable CT angiogram of the brain. 3. There is less than 50% stenosis at the origin of the right internal carotid artery. 4. Otherwise unremarkable CT angiogram of the neck. ACT 112: Negative or not required by law. Electronically signed by: Vitaliy Tate M.D. 09/03/2021 2:31 PM Code Status & VTE Plan VTE Prophylaxis Plan VTE Prophylaxis will be ordered: Yes Supervising Physician Co-Signing Physician Notes 80-year-old female with PMH of CAD, status post TAVR, PE on chronic Coumadin, history of SVT, chronic diastolic heart failure, CKD stage III, RA on chronic prednisone, chronic anemia, sleep apnea presented to the ED 09/03 at request of retinal specialist for blurry vision right eye for 1 week, she was found to have right CRAO at retina clinic. Patient continues to have blurry vision in her right eye, minimally improved from what it was 7 days ago[address] Admitting imag[address] head, CTA head and neck reviewed, no acute findings noted. Lipids in a.m., MRI brain, echo, PT/OT, neurology consult. Patient INR 2.7 at presentation, patient takes Plavix and warfarin compliantly at home per patient. Admitting labs reviewed. Upon examination: GENERAL: Alert and oriented x3. NAD, on RA. HEENT: No pallor, no icterus. Pupils equal, round and reactive to light. Oral mucosa moist. NECK: No JVD, no neck masses. HEART: S1 and S2 heard. Regular rate and rhythm. No murmur, no gallop. RESPIRATORY SYSTEM: Normal AP diameter. No accessory muscle use. No wheezing, no crackles. ABDOMEN: Soft, bowel sounds present, nontender, no distention. CENTRAL NERVOUS SYSTEM: No facial droop. Speech is clear. Obeys simple commands. Moves extremities. BLE 5/5 and BUE 5/5. EXTREMITIES: No edema, no erythema seen. I have seen and examined the patient and have discussed the case with the provider above. I agree with the assessment and plan as stated.
[2021-09-03] MEDS ORDERED: PHARMACIST DISCHARGE MED REC CONSULT PRN (20:02)
[2021-09-03] MEDS ORDERED: ONDANSETRON INJ 2 MG/ML 2 ML VIAL IV PRN (20:02)
[2021-09-03] MEDS ORDERED: ALUMINUM/MAGNESIUM SUSP 30 ML UDC PO PRN (20:02)
[2021-09-03] MEDS ORDERED: POLYETHYLENE (MIRALAX) 17 GM PACK PO PRN (20:02)
[2021-09-03] MEDS ORDERED: ACETAMINOPHEN 325 MG TAB PO PRN (20:02)
[2021-09-03] MEDS ORDERED: WARFARIN SOD 2.5 MG TAB PO SCH (20:30)
[2021-09-03] MEDS: GABAPENTIN 100 MG CAP PO SCH (21:03)
[2021-09-03] MEDS: METOPROLOL SUCC 50MG EXT REL TAB PO SCH (21:03)
[2021-09-03] MEDS: FERROUS SULFATE 325 MG TAB PO SCH (21:04)
[2021-09-03] MEDS: traMADol HCL 50 MG TABLET PO SCH (21:08)
[2021-09-04] MEDS ORDERED: LEVOTHYROXINE SODIUM 50 MCG TABLET PO SCH (06:30)
--- NOTE | 2021-09-04 07:30 | Magnetic Resonance Report ---
MR brain wo con HISTORY: 80 years-old Female visual disturbance acute blurry vision COMPARISON: Head CT of same day, brain MRI 11/14/2019 TECHNIQUE: Multiplanar multisequence MRI of the brain was obtained without the use of IV contrast. FINDINGS: Mildly motion degraded exam. No restricted diffusion. There is no acute intracranial hemorrhage, midl ine shift, abnormal extra-axial collection, hydrocephalus or intracranial mass. Unremarkable midline structures. Degenerative changes of the imaged cervical spine. Age-related involutional changes. Mode rate to extensive T2/FLAIR hyperintense foci noted throughout the white matter of the cerebral hemisp heres. Cerebral venous sinuses and major arterial flow voids appear patent. Trace right mastoid effusion. Mi ld mucosal thickening of the ethmoid air cells. Prior bilateral lens replacement. The skull and soft tissues are unremarkable. IMPRESSION: 1. No acute intracranial abnormality. No acute or subacute infarct. 2. Involutional changes with moderate to extensive T2/FLAIR hyperintense foci suggestive of chronic m icrovascular ischemic disease. ACT 112: Negative or not required by law. The above report was generated using voice recognition software. It may contain grammatical, syntax o r spelling errors. Electronically signed by: Fransico Varner M.D. 09/04/2021 7:28 AM
[2021-09-04] MEDS: traMADol HCL 50 MG TABLET PO SCH (08:19)
[2021-09-04] MEDS: GABAPENTIN 100 MG CAP PO SCH ×2 (08:20→14:18)
[2021-09-04] MEDS: METOPROLOL SUCC 50MG EXT REL TAB PO SCH (08:20)
[2021-09-04] MEDS: FERROUS SULFATE 325 MG TAB PO SCH (08:22)
[2021-09-04] MEDS ORDERED: CLOPIDOGREL BISULFATE 75 MG TAB PO SCH (09:00)
[2021-09-04] MEDS ORDERED: CYANOCOBALAMIN (B-12) 500 MCG TABLET PO SCH (09:00)
[2021-09-04] MEDS ORDERED: PANTOprazole 40 MG TAB PO SCH (09:00)
[2021-09-04] MEDS ORDERED: ATORVASTATIN 40 MG TAB PO SCH (09:00)
[2021-09-04] MEDS ORDERED: predniSONE 5 MG TAB PO SCH (09:00)
[2021-09-04] MEDS ORDERED: LEFLUNOMIDE 10 MG TAB PO SCH (09:00)
[2021-09-04] MEDS ORDERED: EZETIMIBE 10 MG TABLET PO SCH (09:00)
[2021-09-04] MEDS ORDERED: FOLIC ACID 1 MG TAB PO SCH (09:00)
[2021-09-04] MEDS ORDERED: CEROVITE ADV FORMULA TAB PO SCH (09:00)
[2021-09-04] MEDS ORDERED: amLODIPine BESYLATE 5 MG TAB PO SCH (09:00)
[2021-09-04] MEDS ORDERED: SACCHAROMYCES BOULARDII 250 MG CAP PO SCH (09:00)
[2021-09-04 09:42] LABS: Basophils # (auto) 0.03 K/uL (0-0.2); Basophils % (auto) 0.7 %; Eosinophils # (auto) 0.19 K/uL (0-0.5); Eosinophils % (auto) 4.6 %; Hematocrit (blood only) 29.2 % (37-47); Hemoglobin 9.4 g/dL (12.0-16.0); Immature Granulocytes # (auto) 0.02 K/uL (0.00-0.02); Immature Granulocytes % (auto) 0.5 %; Lymphocytes # (auto) 0.75 K/uL (1.2-3.4); Lymphocytes % (auto) 18.2 %; Mean Corpuscular Hemoglobin 35.5 pg (25-34); Mean Corpuscular Hgb Conc 32.2 g/dL (32-36); Mean Corpuscular Volume 110.2 fL (80-100); Mean Platelet Volume 9.1 fL (7.4-10.4); Monocytes # (auto) 0.53 K/uL (0.11-0.59); Monocytes % (auto) 12.9 %; Neutrophils # (auto) 2.59 K/uL (1.4-6.5); Neutrophils % (auto) 63.1 %; Platelet Count 127 K/uL (130-400); RDW Coefficient of Variation 16.8 % (11.5-14.5); RDW Standard Deviation 64.9 fL (36.4-46.3); Red Blood Count 2.65 M/uL (4.2-5.4); White Blood Count 4.11 K/uL (4.8-10.8)
[2021-09-04 09:47] LABS: INR 2.3 (0.9-1.1); Prothrombin Time 23.7 Seconds (9.0-12.0)
--- NOTE | 2021-09-04 10:03 | Neurology Consultation ---
Date of Consultation September 04, 2021 Assessment & Plan (1) Retinal artery branch occlusion of right eye: 1. optimize HTN, HLD, DM LDL <70 2. keep coumadin INR 2.0-3.0 3. continue plavix 75 mg for now - verify now may be used to assess if effective treatment 4. PT/OT for discharge needs 5. MRI no acute findings. 6. TTE no ASD 7. CTA head neck - no occlusion or significant narrowing ok to discharge when medically stable follow up with neurology prn Supervising Physician Co-Signing Physician Notes Patient was seen and examined. I Gomez with Jasmin Rao PA-C recommendations as noted below. An 80 year old woman on Coumadin and Plavix with hsitory atherosclerotic disease and DVT admitted with right visual loss due to right CRAO. On examine EOMI. No ptosis. Eyes are midline. Pupils pinpoint. Face symmetric. Speech is clear. Compliant with Coumadin. CTA head and neck reviewed. No signficiant right carotid stenosis. TTE shows normal EF. MRI brain shows volume loss wo acute ischemia. Recommend to continue current home medications. Follow up with Neuro PRN. History of Present Illness Reason for Consultation: visual disturbance Requesting Physician: Nick Novoa MD Attending Physician: Nick Novoa MD History of Present Illness Nasima is 80 Year old female with PMH- CAD, s/p TAVR, history of PE on chronic Coumadin, h/o SVT, chronic diastolic heart failure, CKD III, RA on chronic prednisone, chronic anemia, sleep apnea presented to [facility] ER 09/03/21 at request of retinal specialist for blurry vision right eye x1 week.For a week she has had blurry vision and loss of vision from right eye. She was referred to retinal specialist.The retinal specialist diagnosed her with right eye central retinal artery occlusion.She has chronic leg weakness and ambulates with a walker or uses wheelchair.She fell on 08/21/2021 and was seen in the ER with no acute fractures. She does not feel that she has had increased extremity weakness. Denies any recurrent falls since 08/21/21 but does have chronic bilateral lower extremity edema, worse if her legs are dangling, improved with elevation. She is doing well her only complain is the vision in her right eye is poor. denies CP, SOB, abdominal pain, headache, N, V. Allergies Allergy/AdvReac Type Severity Reaction Status Date / Time baclofen Allergy Mild DIZZY Verified 09/03/21 13:18 Penicillins Allergy Mild RASH Verified 09/03/21 13:18 Sulfa (Sulfonamide Allergy Mild HEADACHE Verified 09/03/21 13:18 Antibiotics) Home Medications Medication Instructions Recorded Confirmed Type atorvastatin 40 mg tablet 40 mg PO QAM 07/01/18 09/03/21 History metoprolol succinate 50 mg 50 mg PO BID 07/01/18 09/03/21 History tablet,extended release 24 hr prednisone 5 mg tablet 5 mg PO QAM 07/01/18 09/03/21 History folic acid 1 mg tablet 2 mg PO QAM 10/17/19 09/03/21 History methotrexate sodium 2.5 mg tablet 10 mg PO FR 11/14/19 09/03/21 History clopidogrel 75 mg tablet 75 mg PO QAM 05/09/20 09/03/21 History amlodipine 5 mg tablet (Norvasc) 5 mg PO QAM #30 tab 05/10/20 09/03/21 Rx ezetimibe 10 mg tablet 10 mg PO QAM 04/21/21 09/03/21 History pantoprazole 40 mg tablet,delayed 40 mg PO QAM 04/21/21 09/03/21 History release warfarin 2.5 mg tablet See Rx Instructions .ROUTE .COMPLEX 05/04/21 09/03/21 History gabapentin 100 mg capsule 200 mg PO TID #0 cap 05/20/21 09/03/21 Rx ferrous sulfate 325 mg (65 mg 325 mg PO BID 08/21/21 09/03/21 History iron) tablet leflunomide 20 mg tablet 20 mg PO QAM 08/21/21 09/03/21 History ondansetron 4 mg disintegrating 4 mg TRANSLINGUAL DAILY PRN 08/21/21 09/03/21 History tablet tramadol 50 mg tablet 50 mg PO BID 08/21/21 09/03/21 History Saccharomyces boulardii 250 mg 250 mg PO QAM 09/03/21 09/03/21 History capsule (Florastor) cyanocobalamin (vitamin B-12) 500 500 mcg PO QAM 09/03/21 09/03/21 History mcg tablet (Vitamin B-12) levothyroxine 50 mcg tablet 50 mcg PO QAM 09/03/21 09/03/21 History multivit,tx with iron 27 1 tab PO QAM 09/03/21 09/03/21 History ii-nemskcy-twsiw acid 0.4 mg-minerals tablet Patient History Medical History (Updated 09/04/21 @ 12:37 by Jasmin Rao PA-C) CAD (coronary artery disease) Chronic anticoagulation CKD (chronic kidney disease) stage 3, GFR 30-59 ml/min Diverticular disease hx diverticulitis GERD (gastroesophageal reflux disease) History of DVT (deep vein thrombosis) a few years ago. remote h/o PE as well. on residential anticoagulation HLD (hyperlipidemia) HTN (hypertension) Lumbar radiculopathy Obstructive sleep apnea WEARS O2 AT 2L AT HS On home oxygen therapy 2L AT HS Paroxysmal SVT (supraventricular tachycardia) Rheumatoid arthritis RLS (restless legs syndrome) Severe aortic stenosis SVT (supraventricular tachycardia) Surgical History H/O colonoscopy H/O eye surgery LEFT History of carpal tunnel surgery RT/LEFT History of esophagogastroduodenoscopy (EGD) History of heart artery stent 03/18/2020-TYLER x 2 to LAD History of lumbar fusion History of tooth extraction History of total knee replacement RT/LEFT S/P CHANNING-BSO S/P TAVR (transcatheter aortic valve replacement) Family History Other Heart disease No family history of adverse response to anesthesia Rheumatoid arthritis Social History Smoking Status: Never smoker Tobacco Type: Cigarettes Second Hand Exposure: Yes (IN THE PAST); Hx Alcohol Use: Yes Alcohol type: wine Hx Substance Use: No Preferred Language: Icelandic Communication Ability: Effective Shipping Lead Person Required: No Beliefs That Will Affect Care: None marital status: / Current Living Situation: Alone Current Living Situation Comment: Lives with How many Children do You have: 1 Other Information That Helps Us Care for You: No Feels Safe at Home: Yes Safety Concerns: Feels Safe At This Time Assistive Devices: Walker Review of Systems Review of Systems: All systems reviewed & are unremarkable except as noted in HPI & below Physical Exam Physical Exam: Physical Exam: Constitutional: appearance nourished, healthy Ears, Nose, Mouth and Throat: mucous membranes moist, no injection and skin normal, eyes normal Cardiovascular: normal S-1 and S-2 and regular rate and rhythm Respiratory: clear to auscultation (CTA) and no rales, rhonchi or wheeze Musculoskeletal: no pitting peripheral edema Skin: no stigmata of neurocutaneous disease noted and normal and intact Eyes: extraocular muscles intact (EOMI) and pupils equal, round and reactive to light (PERRL), right hemiopsia upper quadrant and lateral NEUROLOGIC EXAMINATION: Mental status: Alert and interactive Oriented to person Speech fluent with no evidence of aphasia Cranial Nerves smile eye brow raise symmetric Reflexes: Deep tendon reflexes were symmetrical and graded 2/5. Sensory: decreased sensation to light cool touch and GT proprioception decreased bilaterally Coordination: finger to nose intact centrally Gait/Stance: Posture lying in bed Motor: Negative for pronator drift of out stretched arms with eyes closed. Strength: hand driller machine biceps triceps, 4+/5, hip flex plantar flex 4+/5 Results & Data ([facility]) Vital Signs (Past 12 Hours) Vital Signs Temp Pulse Pulse Resp BP BP Pulse Ox 09/04/21 08:00 69 09/04/21 07:54 36.3 C L 70 19 138/81 100 09/04/21 04:20 36.5 C 64 18 147/84 H 98 09/03/21 23:19 36.4 C L 69 18 155/70 H 99 Laboratory Results Abnormal lab results 09/03/21 09/03/21 09/03/21 Range/Units 12:14 12:14 15:07 WBC 4.54 L (4.8-10.8) K/uL RBC 2.92 L (4.2-5.4) M/uL Hgb 10.3 L (12.0-16.0) g/dL Hct 31.8 L (37-47) % MCV 108.9 H (80-100) fL MCH 35.3 H (25-34) pg RDW Std Deviation 63.7 H (36.4-46.3) fL RDW Coeff of Keila 16.6 H (11.5-14.5) % Plt Count (130-400) K/uL MPV 10.7 H (7.4-10.4) fL Lymph # (Auto) 0.27 L (1.2-3.4) K/uL PT 27.5 H (9.0-12.0) Seconds INR 2.7 H (0.9-1.1) APTT 37.4 H (21.0-31.0) Seconds Potassium (3.5-5.1) mmol/L Glucose 107 H (70-99(Fasting)) mg/dl Calcium (8.5-10.1) mg/dl 09/04/21 09/04/21 09/04/21 Range/Units 09:15 09:15 09:15 WBC 4.11 L (4.8-10.8) K/uL RBC 2.65 L (4.2-5.4) M/uL Hgb 9.4 L (12.0-16.0) g/dL Hct 29.2 L (37-47) % MCV 110.2 H (80-100) fL MCH 35.5 H (25-34) pg RDW Std Deviation 64.9 H (36.4-46.3) fL RDW Coeff of Keila 16.8 H (11.5-14.5) % Plt Count 127 L (130-400) K/uL MPV (7.4-10.4) fL Lymph # (Auto) 0.75 L (1.2-3.4) K/uL PT 23.7 H (9.0-12.0) Seconds INR 2.3 H (0.9-1.1) APTT (21.0-31.0) Seconds Potassium 3.3 L (3.5-5.1) mmol/L Glucose 114 H (70-99(Fasting)) mg/dl Calcium 8.1 L (8.5-10.1) mg/dl Diagnostic Findings CT head-No acute intracranial abnormality. CTA head/neck- There is no evidence of hemorrhage, mass effect, or acute chandrakant torial ischemia noting angiographic phase technique. Unremarkable CT angiogram of the brain. There is less than 50% stenosis at the origin of the right internal carotid artery. Otherwise unremarkable CT angiogram of the neck. MRI brain with and without-. No acute intracranial abnormality. No acute or subacute infarct. Involutional changes with moderate to extensive T2/FLAIR hyperintense foci suggestive of chronic microvascular ischemic disease. TTE- no ASD, no thromus, 65-70% EF
[2021-09-04 10:05] LABS: BUN Creatinine Ratio 16.5 (10-20); Calcium 8.1 mg/dl (8.5-10.1); Chol HDL Ratio 4.1 (0-5); Creatinine Clr Calc Pharmacy 42.1 ml/min; Est GFR (African American) 81.4 ml/min; Est GFR (Non-African American) 70.2 ml/min; Potassium 3.3 mmol/L (3.5-5.1)
[2021-09-04 10:21] LABS: Macrocytosis Present
[2021-09-04] MEDS ORDERED: POTASSIUM CHLORIDE CRTAB 20 MEQ TABCR PO ONE (10:49)
[2021-09-04 10:54] LABS: Estimated Average Glucose 100 mg/dl; Hemoglobin A1C 5.1 % (4.5-5.6)
--- NOTE | 2021-09-04 12:31 | Hospitalist Progress Note ---
Date of Service September 04, 2021 Assessment & Plan (1) Central retinal artery occlusion of right eye: (2) Abnormal CXR: (3) History of DVT (deep vein thrombosis): (4) halfway (current) use of anticoagulants: (5) CAD (coronary artery disease): (6) Severe aortic stenosis: (7) S/P TAVR (transcatheter aortic valve replacement): (8) Chronic heart failure with preserved ejection fraction: (9) Rheumatoid arthritis: (10) Paroxysmal SVT (supraventricular tachycardia): (11) CKD (chronic kidney disease) stage 3, GFR 30-59 ml/min: (12) Chronic anemia: (13) Obstructive sleep apnea: Plan: Patient is 80 y/o F with PMH CAD, s/p TAVR, history of PE on chronic Coumadin, h/o SVT, chronic diastolic heart failure, CKD III, RA on chronic prednisone, chronic anemia, sleep apnea presented to ER at request of retinal specialist for blurry vision right eye x1 week. Today was found to have right eye central retinal artery occlusion.. Central retinal artery occlusion of right eye: Plan: In ER vitals stable. INR: 2.7 CT head:No acute intracranial abnormality. CTA head and neck: No acute ischemia, no hemorrhage or mass, less than 50% stenosis right internal carotid artery Tele to monitor for arrhythmias lipids, A1c in am MRI brain Echo with bubble study PT/OT consult Continue plavix, warfarin, statin neurology consult (2) Abnormal CXR: Plan: CXR: Cardiomegaly with unchanged interstitial coarsening. Mild left basilar opacities suggest probable atelectasis. Denies fever/chills, cough, SOB Incentive spirometer Monitor (3) History of DVT (deep vein thrombosis): (4) halfway (current) use of anticoagulants: Plan: History DVT, PE INR: 2.7 Continue warfarin (5) CAD (coronary artery disease): Plan: Denies chest pain or shortness of breath Continue Plavix, atorvastatin, ezetimibe (6) Severe aortic stenosis: (7) S/P TAVR (transcatheter aortic valve replacement): Plan: Denies chest pain, shortness of breath (8) Chronic heart failure with preserved ejection fraction: Plan: Appears euvolemic (9) Rheumatoid arthritis: Plan: Continue prednisone, leflunomide Hold methotrexate for now (10) Paroxysmal SVT (supraventricular tachycardia): Plan: Continue metoprolol succinate (11) CKD (chronic kidney disease) stage 3, GFR 30-59 ml/min: Plan: Cr: 0.95. Baseline 0.7-0.9 Monitor renal functions, avoid nephrotoxic agents when possible (12) Chronic anemia: Plan: Hgb: 10.3. At baseline Continue ferrous sulfate, B12, folate supplements (13) Obstructive sleep apnea: Plan: CPAP, 2 L O2 at bedtime Hypokalemia- repleted, recheck in am Macrocytic anemia- will check B12, folate, TSH DVT Prophylaxis On Coumadin INR: Therapeutic Admission and Anticipated Discharge Date Admission Date: September 03, 2021 Results & Data Results & Data ([facility]) Vital Signs (Past 12 Hours) Vital Signs Temp Pulse Pulse Resp BP BP Pulse Ox 09/04/21 11:31 36.6 C 64 17 126/69 94 09/04/21 08:00 69 09/04/21 07:54 36.3 C L 70 19 138/81 100 09/04/21 04:20 36.5 C 64 18 147/84 H 98
[2021-09-04] MEDS ORDERED: STROKE PATIENT DISCHARGE STA (15:57)
--- NOTE | 2021-09-04 15:57 | Communication Note ---
Date of Service: September 04, 2021 By CMS guidelines, a determination that the admission or continued stay is not medically necessary has been made by a member of the UR committee and a physic chichi for this hospital stay, therefore a Code 44 will be completed and the Inpatient admission will be changed to outpatient. Nick Novoa MD 09/04/21
[2021-09-04] MEDS ORDERED: WARFARIN SOD 1.25 MG TAB PO SCH (16:00)
--- NOTE | 2021-09-04 16:00 | Communication Note ---
Date of Service: September 04, 2021 By CMS guidelines, a determination that the admission or continued stay is not medically necessary has been made by a member of the Utilization Review commi ttee and a physician for this hospital stay. Therefore, a Code 44 will be completed and the inpatient admission will be changed to outpatient. Zeynep Hale DO
--- NOTE | 2021-09-04 16:01 | Discharge Summary ---
Date of Service September 04, 2021 Admission HPI Per Admitting Provider Patient is 80 y/o F with PMH CAD, s/p TAVR, history of PE on chronic Coumadin, h/o SVT, chronic diastolic heart failure, CKD III, RA on chronic prednisone, chronic anemia, sleep apnea presented to ER at request of retinal specialist for blurry vision right eye x1 week. Patient reports for the past week she has had blurry vision and loss of vision from right eye. She initially reports following up with eye doctor and was referred to retinal specialist. Today she is a retinal specialist and was diagnosed with right eye central retinal artery occlusion. Patient reports having chronic leg weakness and ambulates with a walker or uses wheelchair. Reports a fall on 08/21/2021 and was seen in the ER with no acute fractures noted. She does not feel that she has had increased extremity weakness. Denies any recurrent falls since 08/21/21. Reports chronic bilateral lower extremity edema, worse if her legs are dangling, improved with elevation. Denies any increased edema. Denies fever/chills, diaphoresis, N/V/D/C, RUEDA, dizziness, syncope, neck pain, CP, SOB, orthopnea, palpitations, cough, sore throat, choking, otalgia, rhinorrhea, abdominal pain, paresthesias, rashes, urinary symptoms. In ER CT head:No acute intracranial abnormality. CTA head and neck: No acute ischemia, no hemorrhage or mass, less than 50% stenosis right internal carotid artery INR: 2.7 Admission Exam Per Admitting Provider General: no distress, WDWN Head: normocephalic, atraumatic Eyes: PERRL, EOM's intact, conjunctiva non-injected, anicteric, Pt reports right eye seeing two blurry objects merging into one object on vision testing (using one pen as object) ENT: hard of hearing, normal inspection external ears, nose, mucous membranes moist Neck: supple, trachea midline Lungs: clear, no respiratory distress, no wheezing/rhonchi/rales CV: RRR, trace pretibial edema Abd: normal BS, soft, non-tender Ext: no cyanosis, no calf tenderness Neuro: Alert, oriented to person, place, month, season. unsure of year. normal affect. Facial sensation is intact and symmetric, face is strong and symmetric, hearing grossly intact, soft palate elevates symmetrically, no dysarthria, Shoulder shrug intact, tongue is midline, normal movement, no fasciculations. RLE 4/5 strength compared to 5/5 on LLE Skin: warm, dry Principal Diagnosis Retinal artery branch occlusion right eye Discharge Exam General: Lying comfortably in bed, not in distress, on room air HEENT: Decreased vision right eye, Left eye vision intact. Chest: Clear breath sounds bilaterally, no wheezes or crackles CVS: Regular rate and rhythm, normal heart sounds, no murmur Abdomen: Soft, non tender, not distended, normal bowel sounds Neuro: Awake, alert, oriented, conversing well, non focal Extremities: No cyanosis, clubbing or edema Discharge Data Allergies Allergy/AdvReac Type Severity Reaction Status Date / Time baclofen Allergy Mild DIZZY Verified 09/03/21 13:18 Penicillins Allergy Mild RASH Verified 09/03/21 13:18 Sulfa (Sulfonamide Allergy Mild HEADACHE Verified 09/03/21 13:18 Antibiotics) Consultations 09/03/21 14:45 ED Decision to Admit Stat 09/03/21 16:17 Consult Neurology Routine Ordered Studies 09/03/21 11:56 CT angio head w con Stat CT angio neck with con Stat CT head/brain wo con Stat 09/03/21 20:02 MR brain wo con Routine Laboratory Results WBC 4.11 K/uL (4.8-10.8) L 09/04/21 09:15 RBC 2.65 M/uL (4.2-5.4) L 09/04/21 09:15 Hgb 9.4 g/dL (12.0-16.0) L 09/04/21 09:15 Hct 29.2 % (37-47) L 09/04/21 09:15 MCV 110.2 fL (80-100) H 09/04/21 09:15 MCH 35.5 pg (25-34) H 09/04/21 09:15 MCHC 32.2 g/dL (32-36) 09/04/21 09:15 RDW Std Deviation 64.9 fL (36.4-46.3) H 09/04/21 09:15 RDW Coeff of Keila 16.8 % (11.5-14.5) H 09/04/21 09:15 Plt Count 127 K/uL (130-400) L 09/04/21 09:15 MPV 9.1 fL (7.4-10.4) 09/04/21 09:15 Immature Gran % (Auto) 0.5 % 09/04/21 09:15 Neut % (Auto) 63.1 % 09/04/21 09:15 Lymph % (Auto) 18.2 % 09/04/21 09:15 [place] % (Auto) 12.9 % 09/04/21 09:15 Eos % (Auto) 4.6 % 09/04/21 09:15 Baso % (Auto) 0.7 % 09/04/21 09:15 Neut # (Auto) 2.59 K/uL (1.4-6.5) 09/04/21 09:15 Lymph # (Auto) 0.75 K/uL (1.2-3.4) L 09/04/21 09:15 [place] # (Auto) 0.53 K/uL (0.11-0.59) 09/04/21 09:15 Eos # (Auto) 0.19 K/uL (0-0.5) 09/04/21 09:15 Baso # (Auto) 0.03 K/uL (0-0.2) 09/04/21 09:15 Immature Gran # (Auto) 0.02 K/uL (0.00-0.02) 09/04/21 09:15 Macrocytosis Present 09/04/21 09:15 PT 23.7 Seconds (9.0-12.0) H 09/04/21 09:15 INR 2.3 (0.9-1.1) H 09/04/21 09:15 APTT 37.4 Seconds (21.0-31.0) H 09/03/21 15:07 PTT Ratio 1.4 09/03/21 15:07 Sodium 137 mmol/L (136-145) 09/04/21 09:15 Potassium 3.3 mmol/L (3.5-5.1) L 09/04/21 09:15 Chloride 107 mmol/L (98-107) 09/04/21 09:15 Carbon Dioxide 25 mmol/L (21-32) 09/04/21 09:15 Anion Gap 5 (3-11) 09/04/21 09:15 BUN 13 mg/dl (6-23) 09/04/21 09:15 Creatinine 0.79 mg/dl (0.6-1.2) 09/04/21 09:15 Est Cr Clr Drug Dosing 42.1 ml/min 09/04/21 09:15 Est GFR ( Amer) 81.4 ml/min 09/04/21 09:15 Est GFR (Non-Af Amer) 70.2 ml/min 09/04/21 09:15 BUN/Creatinine Ratio 16.5 (10-20) 09/04/21 09:15 Glucose 114 mg/dl (70-99(Fasting)) H 09/04/21 09:15 Estimat Average Glucose 100 mg/dl 09/04/21 09:15 Hemoglobin A1c 5.1 % (4.5-5.6) 09/04/21 09:15 Calcium 8.1 mg/dl (8.5-10.1) L 09/04/21 09:15 Magnesium 2.0 mg/dl (1.7-2.4) 09/03/21 15:09 Total Bilirubin 1.0 mg/dl (0.2-1.0) 09/03/21 12:14 AST 32 U/L (13-39) 09/03/21 15:09 ALT 29 U/L (7-52) 09/03/21 12:14 Alkaline Phosphatase 77 U/L (34-104) 09/03/21 12:14 Troponin I High Sens 11.0 pg/ml (0-14) 09/03/21 12:14 Total Protein 7.0 gm/dl (6.0-8.3) 09/03/21 12:14 Albumin 4.1 gm/dl (3.4-5.0) 09/03/21 12:14 Globulin 2.9 gm/dl (2.5-4.0) 09/03/21 12:14 Albumin/Globulin Ratio 1.4 (0.9-2) 09/03/21 12:14 Triglycerides 136 mg/dl (0-150) 09/04/21 09:15 Cholesterol 119 mg/dl (0-200) 09/04/21 09:15 LDL Cholesterol, Calc 63 mg/dl 09/04/21 09:15 VLDL Cholesterol, Calc 27 mg/dl (0-30) 09/04/21 09:15 HDL Cholesterol 29 mg/dl 09/04/21 09:15 Cholesterol/HDL Ratio 4.1 (0-5) 09/04/21 09:15 SARS-CoV-2, RNA, NAAT NEGATIVE (NEGATIVE) 09/03/21 12:16 Impressions Chest X-Ray 09/03/21 11:56 XR chest 1V portable HISTORY: 80 years-old Female Stroke Like Symptoms acute stroke like symptoms COMPARISON: Chest radiograph 08/21/2021 TECHNIQUE: Portable AP view of the chest FINDINGS: The cardiac silhouette is enlarged. No pneumothorax, large pleural effusion or overt pulmonary edema. Lungs are hypoinflated. Mild subsegmental left basilar opacities are noted along with unchanged interstitial coarsening. Endograft of the aortic valve. Degenerative changes of the shoulders and spine. IMPRESSION: 1. Cardiomegaly with unchanged interstitial coarsening. 2. Mild left basilar opacities suggest probable atelectasis. ACT 112: Negative or not required by law. The above report was generated using voice recognition software. It may contain grammatical, syntax or spelling errors. Electronically signed by: Fransico Varner M.D. 09/03/2021 12:[address] 09/03/21 11:56 CT head/brain wo con CLINICAL HISTORY: 80 years-old Female with Stroke Like Symptoms. Acute strokelike symptoms TECHNIQUE: Multiple axial CT images of the head were obtained without contrast. A dose lowering technique was utilized adhering to the principles of ALARA. COMPARISON: CTA head and neck of same day, head CT 08/21/2021 FINDINGS: No acute intracranial hemorrhage, midline shift, intracranial mass, hydroce phalus, territorial ischemia or abnormal extra-axial collection. Age-related involutional changes. White matter hypodensities suggest chronic microvascular ischemic disease. Cerebral vascular calcifications. The calvarium is intact. Prior bilateral lens replacement. The paranasal sinuses, mastoid air cells, and middle ear cavities are clear. IMPRESSION: No acute intracranial abnormality. ACT 112: Negative or not required by law. The above report was generated using voice recognition software. It may contain grammatical, syntax or spelling errors. Electronically signed by: Fransico Varner M.D. 09/03/2021 2:14 PM Head CTA 09/03/21 11:56 CT ANGIOGRAM OF THE BRAIN; CT ANGIOGRAM OF THE NECK CLINICAL HISTORY: Strokelike symptoms. COMPARISON STUDY: Unenhanced CT of the brain performed the same day 09/03/2021. TECHNIQUE: Following the IV administration of 121 of Optiray 320, CT angiogram of the head and neck was performed from the aortic arch to the vertex. Images are reviewed in the axial, sagittal, and coronal planes. 3-D MIPS images are created and assessed. IV contrast was administered without complication. All measurements were calculated based on NASCET criteria. A dose lowering technique was utilized adhering to the principles of ALARA. CT DOSE: 1012.54 mGy.cm FINDINGS: Brain parenchyma: There is age-related involutional change noting moderate subcortical and periventricular microangiopathic disease. There is no evidence of hemorrhage, mass effect, or acute territorial ischemia noting angiographic phase technique. There is no evidence of enhancing mass lesion on the angiogram phase images. The ventricles, sulci, and cisterns are prominent secondary to involutional change. Chamberlain-white matter differentiation is preserved. No extra- axial fluid collection is seen. Thoracic aorta: There is atherosclerotic calcification of the thoracic aorta. Visualized portions of the thoracic aorta are normal in caliber. The aortic arch demonstrates standard 3-vessel anatomy. Right carotid arterial system: The right common carotid artery is widely patent. Advanced atherosclerotic plaque in the carotid bulb causes less than 50% luminal narrowing at the origin of the right internal carotid artery. The remainder of the right internal carotid artery is widely patent, as is the right external carotid artery. Left carotid arterial system: The left common carotid artery is widely patent, as are the left internal and external carotid arteries. Calcified plaque is noted in the carotid bulb. Vertebral arteries: The vertebral arteries are widely patent bilaterally and codominant. Subclavian arteries: Widely patent bilaterally. Intracranial vasculature: The internal carotid arteries are patent at the skull base, as are the anterior and middle cerebral arteries bilaterally. The vertebrobasilar system and posterior cerebral arteries are widely patent. The vertebral arteries are codominant. There is origin of the right posterior cerebral artery. There is no aneurysm, high-grade stenosis, or focal vessel cut off seen throughout the intracranial circulation. Jugular veins: Patent bilaterally. Dural sinuses: Patent. Lung apices: Partially visualized upper lobe lung parenchyma appears clear. Soft tissues: The visualized pharyngeal soft tissues are normal in appearance noting angiographic phase technique. The oropharyngeal airway appears widely patent. The thyroid gland is heterogeneous. The salivary glands are normal in appearance. No cervical lymphadenopathy is seen. Skeletal structures: The skeletal structures are osteopenic. The calvarium appears intact. The cervical spine is maintained noting multilevel spondylosis. No lytic or blastic lesion is seen. Orbits: The bony orbits are intact. Orbital contents are normal as visualized noting bilateral ocular lens implants. Sinuses and mastoids: The paranasal sinuses are clear. The mastoid air cells are well pneumatized. IMPRESSION: 1. There is no evidence of hemorrhage, mass effect, or acute territorial ischemia noting angiographic phase technique. 2. Unremarkable CT angiogram of the brain. 3. There is less than 50% stenosis at the origin of the right internal carotid artery. 4. Otherwise unremarkable CT angiogram of the neck. ACT 112: Negative or not required by law. Electronically signed by: Vitaliy Tate M.D. 09/03/2021 2:31 PM Neck CTA 09/03/21 11:56 CT ANGIOGRAM OF THE BRAIN; CT ANGIOGRAM OF THE NECK CLINICAL HISTORY: Strokelike symptoms. COMPARISON STUDY: Unenhanced CT of the brain performed the same day 09/03/2021. TECHNIQUE: Following the IV administration of 121 of Optiray 320, CT angiogram of the head and neck was performed from the aortic arch to the vertex. Images are reviewed in the axial, sagittal, and coronal planes. 3-D MIPS images are created and assessed. IV contrast was administered without complication. All measurements were calculated based on NASCET criteria. A dose lowering technique was utilized adhering to the principles of ALARA. CT DOSE: 1012.54 mGy.cm FINDINGS: Brain parenchyma: There is age-related involutional change noting moderate subcortical and periventricular microangiopathic disease. There is no evidence of hemorrhage, mass effect, or acute territorial ischemia noting angiographic phase technique. There is no evidence of enhancing mass lesion on the angiogram phase images. The ventricles, sulci, and cisterns are prominent secondary to involutional change. Chamberlain-white matter differentiation is preserved. No extra- axial fluid collection is seen. Thoracic aorta: There is atherosclerotic calcification of the thoracic aorta. Visualized portions of the thoracic aorta are normal in caliber. The aortic arch demonstrates standard 3-vessel anatomy. Right carotid arterial system: The right common carotid artery is widely patent. Advanced atherosclerotic plaque in the carotid bulb causes less than 50% luminal narrowing at the origin of the right internal carotid artery. The remainder of the right internal carotid artery is widely patent, as is the right external carotid artery. Left carotid arterial system: The left common carotid artery is widely patent, as are the left internal and external carotid arteries. Calcified plaque is noted in the carotid bulb. Vertebral arteries: The vertebral arteries are widely patent bilaterally and codominant. Subclavian arteries: Widely patent bilaterally. Intracranial vasculature: The internal carotid arteries are patent at the skull base, as are the anterior and middle cerebral arteries bilaterally. The vertebrobasilar system and posterior cerebral arteries are widely patent. The vertebral arteries are codominant. There is origin of the right posterior cerebral artery. There is no aneurysm, high-grade stenosis, or focal vessel cut off seen throughout the intracranial circulation. Jugular veins: Patent bilaterally. Dural sinuses: Patent. Lung apices: Partially visualized upper lobe lung parenchyma appears clear. Soft tissues: The visualized pharyngeal soft tissues are normal in appearance noting angiographic phase technique. The oropharyngeal airway appears widely patent. The thyroid gland is heterogeneous. The salivary glands are normal in appearance. No cervical lymphadenopathy is seen. Skeletal structures: The skeletal structures are osteopenic. The calvarium appears intact. The cervical spine is maintained noting multilevel spondylosis. No lytic or blastic lesion is seen. Orbits: The bony orbits are intact. Orbital contents are normal as visualized noting bilateral ocular lens implants. Sinuses and mastoids: The paranasal sinuses are clear. The mastoid air cells are well pneumatized. IMPRESSION: 1. There is no evidence of hemorrhage, mass effect, or acute territorial ischemia noting angiographic phase technique. 2. Unremarkable CT angiogram of the brain. 3. There is less than 50% stenosis at the origin of the right internal carotid artery. 4. Otherwise unremarkable CT angiogram of the neck. ACT 112: Negative or not required by law. Electronically signed by: Vitaliy Tate M.D. 09/03/2021 2:31 PM Brain MRI 09/03/21 20:02 MR brain wo con HISTORY: 80 years-old Female visual disturbance acute blurry vision COMPARISON: Head CT of same day, brain MRI 11/14/2019 TECHNIQUE: Multiplanar multisequence MRI of the brain was obtained without the use of IV contrast. FINDINGS: Mildly motion degraded exam. No restricted diffusion. There is no acute intracranial hemorrhage, midline shift, abnormal extra-axial collection, hydrocephalus or intracranial mass. Unremarkable midline structures. Degenerative changes of the imaged cervical spine. Age-related involutional changes. Moderate to extensive T2/FLAIR hyperintense foci noted throughout the white matter of the cerebral hemispheres. Cerebral venous sinuses and major arterial flow voids appear patent. Trace right mastoid effusion. Mild mucosal thickening of the ethmoid air cells. Prior bilateral lens replacement. The skull and soft tissues are unremarkable. IMPRESSION: 1. No acute intracranial abnormality. No acute or subacute infarct. 2. Involutional changes with moderate to extensive T2/FLAIR hyperintense foci suggestive of chronic microvascular ischemic disease. ACT 112: Negative or not required by law. The above report was generated using voice recognition software. It may contain grammatical, syntax or spelling errors. Electronically signed by: Fransico Varner M.D. 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: (5) CAD (coronary artery disease): (6) Severe aortic stenosis: (7) S/P TAVR (transcatheter aortic valve replacement): (8) Chronic heart failure with preserved ejection fraction: (9) Rheumatoid arthritis: (10) Paroxysmal SVT (supraventricular tachycardia): (11) CKD (chronic kidney disease) stage 3, GFR 30-59 ml/min: (12) Chronic anemia: (13) Obstructive sleep apnea: Patient is 80 y/o F with PMH CAD, s/p TAVR, history of PE on chronic Coumadin, h/o SVT, chronic diastolic heart failure, CKD III, RA on chronic prednisone, chronic anemia, sleep apnea presented to ER at request of retinal specialist for blurry vision right eye x1 week. Today was found to have right eye central retinal artery occlusion. Patient presented to the ED. Stroke work up was completed including CT head, CTA head and neck, MRI brain and echo. Symptoms have remained stable. Seen by neurology- no new recommendations, co ntinue home meds, neuro and ophthalmology follow up as needed. Seen by therapy and cleared for discharge back to her [facility]. Comfortable and stable for discharge. Called his family over the phone and reviewed discharge instructions and answered all the questions. Retinal artery branch occlusion of right eye: - Stroke work up completed- CT, CTA head and neck, MRI brain, lipid panel- results as above. Echo with no ASD. - Seen by neuro- no new recommendations - Seen by Therapy- cleared for discharge back to [facility] - F/u with ophthalmology and neuro - Continue R[employer]TER plavix, warfarin, statin History of DVT/PE- on coumadin, INR therpeutic CAD (coronary artery disease): Continue Plavix, atorvastatin, ezetimibe Severe aortic stenosis S/P TAVR- stable, asymptomatic Chronic heart failure with preserved ejection fraction- euvolemic, stable Rheumatoid arthritis- Continue ROTARY CUTTER prednisone, leflunomide, MTX Paroxysmal SVT- Continue metoprolol CKD (chronic kidney disease) stage 3, GFR 30-59 ml/min: Cr: 0.95. Baseline 0.7- 0.9 Chronic anemia: Hgb: 10.3. At baseline; Continue ferrous sulfate, B12, folate supplements Obstructive sleep apnea: continue CPAP, 2 L O2 at bedtime Hypokalemia- repleted Total Time Total Time Spent Total Time Spent (In Minutes): 40 Discharge Plan Discharge Items Patient Disposition: Home - Self-Care Reason For Visit: STROKE SYMPTOMS Discharge Diagnosis: Retinal artery branch occlusion right eye Activity: Resume your previous activity Non-emergency contact: Primary Care Provider Call non-emergency contact if: you have any medication questions and your symptoms worsen Follow-up/Referrals: [facility] [Primary Care Provider] - Diet: Heart Healthy Add Attending Provider Instructions: Continue your home medications Follow up with your eye doctor and family doctor If recurrence or worsening of symptoms, please come to the emergency Pending Studies at Discharge: No Stand-Alone Forms: My [facility] [employer], Smoking Cessation Medications and DC Order Prescriptions: Continued atorvastatin 40 mg tablet 40 mg PO QAM RF: 0 metoprolol succinate 50 mg tablet extended release 24 hr 50 mg PO BID RF: 0 prednisone 5 mg Tablet 5 mg PO QAM RF: 0 folic acid 1 mg Tablet 2 mg PO QAM RF: 0 methotrexate sodium 2.5 mg tablet 10 mg PO FR RF: 0 clopidogrel 75 mg tablet 75 mg PO QAM RF: 0 amlodipine [Norvasc] 5 mg Tablet 5 mg PO QAM Qty: 30 RF: 1 pantoprazole 40 mg tablet,delayed release (DR/EC) 40 mg PO QAM RF: 0 ezetimibe 10 mg tablet 10 mg PO QAM RF: 0 leflunomide 20 mg tablet 20 mg PO QAM RF: 0 ferrous sulfate 325 mg (65 mg iron) tablet 325 mg PO BID RF: 0 tramadol 50 mg tablet 50 mg PO BID RF: 0 ondansetron 4 mg tablet,disintegrating 4 mg translingual DAILY PRN (Reason: Nausea) RF: 0 levothyroxine 50 mcg tablet 50 mcg PO QAM RF: 0 multivitamin,wc-akee-Pw-FA-min 27-0.4 mg Tablet 1 tab PO QAM RF: 0 Saccharomyces boulardii [Florastor] 250 mg Capsule 250 mg PO QAM RF: 0 cyanocobalamin (vitamin B-12) [Vitamin B-12] 500 mcg Tablet 500 mcg PO QAM RF: 0 warfarin 2.5 mg Tablet See Rx Instructions .ROUTE .COMPLEX RF: 0 gabapentin 100 mg capsule 200 mg PO TID Qty: 0 RF: 0 Discharge Orders: Discharge Order (Routine); Ordered 09/04/21 Ordered By: Nick Novoa Admission Data Admit Date/Time: 09/03/21 15:50 Attending Provider: Nick Novoa Admit Provider: Gretta Gastelum Primary Care Provider: [facility] Other Providers: Gretta Gastelum ; Felix Spencer Other Interventions: Discharge Summary Assessment (RN) Last Done: 09/04/21 15:52
--- NOTE | 2021-09-04 22:52 | Electrocardiogram Report ---
Test Reason : Blood Pressure : / mmHG Vent. Rate : 072 BPM Atrial Rate : 072 BPM P-R Int : 218 ms QRS Dur : 098 ms QT Int : 406 ms P-R-T Axes : 033 -46 036 degrees QTc Int : 444 ms Sinus rhythm with 1st degree A-V block Left anterior fascicular block Voltage criteria for left ventricular hypertrophy Abnormal ECG When compared with ECG of 21-AUG-2021 15:17, No significant change Confirmed by Guido Blue ([id number]) on 09/04/2021 10:51:48 PM Referred By: Confirmed By:Guido Blue
== END 2021-09-04 17:21 | disposition home or self-care (01) ==
LOC: ED 11:39 → SUATTDRO 15:50 → INTOOBSV 15:50 → 2S 15:50

== ENCOUNTER 2021-09-11 09:06 | Inpatient (IN) ==
--- NOTE | 2021-09-11 09:24 | Emergency Department Note ---
History of Present Illness General Chief complaint: Fall Stated complaint: L KNEE PAIN Time Seen by Provider: 09/11/21 09:08 Source: patient, EMS, RN notes reviewed and old records reviewed Mode of arrival: EMS Limitations: no limitations History of Present Illness This patient 80-year-old female who comes in after falling on Wednesday and having pain in her left knee. She does not sure why she fell. They did x-rays of the [facility] which were reportedly negative. Since then she said increasing pain and swelling. She is on Coumadin as she has a history of DVT and valvular disease. She complains of knee pain she denies any other symptoms she does have some back pain as well. Denies headache. No chest pain or shortness of breath or abdominal pain. No numbness or weakness. 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 and had a full stroke work-up including MRI of her head Home Medications Medication Instructions Recorded Confirmed Type atorvastatin 40 mg tablet 40 mg PO QAM 07/01/18 09/11/21 History metoprolol succinate 50 mg 50 mg PO BID 07/01/18 09/11/21 History tablet,extended release 24 hr prednisone 5 mg tablet 5 mg PO QAM 07/01/18 09/11/21 History folic acid 1 mg tablet 2 mg PO QAM 10/17/19 09/11/21 History methotrexate sodium 2.5 mg tablet 10 mg PO FR 11/14/19 09/11/21 History clopidogrel 75 mg tablet 75 mg PO QAM 05/09/20 09/11/21 History amlodipine 5 mg tablet (Norvasc) 5 mg PO QAM #30 tab 05/10/20 09/11/21 Rx ezetimibe 10 mg tablet 10 mg PO QAM 04/21/21 09/11/21 History pantoprazole 40 mg tablet,delayed 40 mg PO QAM 04/21/21 09/11/21 History release warfarin 2.5 mg tablet See Rx Instructions .ROUTE .COMPLEX 05/04/21 09/11/21 History gabapentin 100 mg capsule 200 mg PO TID #0 cap 05/20/21 09/11/21 Rx ferrous sulfate 325 mg (65 mg 325 mg PO BID 08/21/21 09/11/21 History iron) tablet leflunomide 20 mg tablet 20 mg PO QAM 08/21/21 09/11/21 History ondansetron 4 mg disintegrating 4 mg TRANSLINGUAL DAILY PRN 08/21/21 09/11/21 History tablet tramadol 50 mg tablet 50 mg PO BID 08/21/21 09/11/21 History Saccharomyces boulardii 250 mg 250 mg PO QAM 09/03/21 09/11/21 History capsule (Florastor) cyanocobalamin (vitamin B-12) 500 500 mcg PO QAM 09/03/21 09/11/21 History mcg tablet (Vitamin B-12) levothyroxine 50 mcg tablet 50 mcg PO QAM 09/03/21 09/11/21 History multivit,tx with iron 27 1 tab PO QAM 09/03/21 09/11/21 History qw-efkybvj-hgnui acid 0.4 mg-minerals tablet Allergies Allergy/AdvReac Type Severity Reaction Status Date / Time baclofen Allergy Mild DIZZY Verified 09/11/21 10:24 Penicillins Allergy Mild RASH Verified 09/11/21 10:24 Sulfa (Sulfonamide Allergy Mild HEADACHE Verified 09/11/21 10:24 Antibiotics) Past Med/Surg History Medical History CAD (coronary artery disease) Chronic anticoagulation CKD (chronic kidney disease) stage 3, GFR 30-59 ml/min Diverticular disease hx diverticulitis GERD (gastroesophageal reflux disease) History of DVT (deep vein thrombosis) a few years ago. remote h/o PE as well. on retirement anticoagulation HLD (hyperlipidemia) HTN (hypertension) Lumbar radiculopathy Obstructive sleep apnea WEARS O2 AT 2L AT HS On home oxygen therapy 2L AT HS Paroxysmal SVT (supraventricular tachycardia) Rheumatoid arthritis RLS (restless legs syndrome) Severe aortic stenosis SVT (supraventricular tachycardia) Surgical History H/O colonoscopy H/O eye surgery LEFT History of carpal tunnel surgery RT/LEFT History of esophagogastroduodenoscopy (EGD) History of heart artery stent 03/18/2020-TYLER x 2 to LAD History of lumbar fusion History of tooth extraction History of total knee replacement RT/LEFT S/P CHANNING-BSO S/P TAVR (transcatheter aortic valve replacement) Family History Other Heart disease No family history of adverse response to anesthesia Rheumatoid arthritis Social History Smoking Status: Never smoker Tobacco Type: Cigarettes Second Hand Exposure: Yes (IN THE PAST); Hx Alcohol Use: Yes Alcohol type: wine Hx Substance Use: No Preferred Language: Slovak Communication Ability: Effective Chief Airport Guide Required: No Beliefs That Will Affect Care: None marital status: / Current Living Situation: Alone Current Living Situation Comment: Lives with How many Children do You have: 1 Feels Safe at Home: Yes Assistive Devices: Walker Review of Systems A total of 10 systems reviewed and were otherwise negative Physical Exam Vital Signs Vital Signs - 24 hr 09/11/21 09:11 09/11/21 09:27 09/11/21 10:19 Temperature 37.8 C H 36.8 C Temperature Source Oral Oral Pulse Rate 85 85 Pulse Rate [Apical] 88 Pulse Rhythm Regular Pulse Rhythm [Apical] Respiratory Rate 16 16 18 Respiratory Effort / Characteristics Non-Labored Spontaneous Non-Labored Spontaneous Respiratory Depth Normal Normal Respiratory Pattern Regular Regular Blood Pressure 109/81 Blood Pressure [Right Arm] 109/81 Blood Pressure Mean 90 Blood Pressure Mean [Right Arm] 90 Blood Pressure Position Lying Blood Pressure Position [Right Arm] Lying Pulse Oximetry 95 95 97 Oxygen Delivery Method Room Air Room Air Room Air Sepsis New/Unexplained Change in Mental Status No Sepsis Action Taken by Nursing No Action Required 09/11/21 11:10 09/11/21 12:15 09/11/21 13:12 Temperature Temperature Source Pulse Rate Pulse Rate [Apical] 93 H 82 82 Pulse Rhythm Pulse Rhythm [Apical] Respiratory Rate 18 16 16 Respiratory Effort / Characteristics Non-Labored Spontaneous Respiratory Depth Normal Respiratory Pattern Regular Blood Pressure Blood Pressure [Right Arm] 167/66 H 167/66 H 167/66 H Blood Pressure Mean Blood Pressure Mean [Right Arm] 99 99 99 Blood Pressure Position Blood Pressure Position [Right Arm] Lying Pulse Oximetry 97 95 97 Oxygen Delivery Method Room Air Room Air Room Air Sepsis New/Unexplained Change in Mental Status Sepsis Action Taken by Nursing 09/11/21 15:00 Temperature Temperature Source Pulse Rate Pulse Rate [Apical] 78 Pulse Rhythm Pulse Rhythm [Apical] Regular Respiratory Rate 16 Respiratory Effort / Characteristics Non-Labored Spontaneous Respiratory Depth Normal Respiratory Pattern Regular Blood Pressure Blood Pressure [Right Arm] 167/66 H Blood Pressure Mean Blood Pressure Mean [Right Arm] 99 Blood Pressure Position Blood Pressure Position [Right Arm] Lying Pulse Oximetry 97 Oxygen Delivery Method Room Air Sepsis New/Unexplained Change in Mental Status Sepsis Action Taken by Nursing General: Well developed well nourished older female who appears in no acute distress, breathing comfortably on room air. Normal speech. She is alert to person and place and most of date. HEENT: Normal cephalic atraumatic. Pupils are equal round and reactive to ligh t. Extraocular movements are intact. Oropharynx is pink with moist mucous membranes. No swelling of the mouth lips or tongue. Neck: Supple with a midline trachea. No meningeal signs or stiffness, no JVD or bruits. No Stridor. Chest: Clear to auscultation bilaterally. No wheezes or rhonchi. No increased work of breathing. Heart: Regular rate and rhythm without murmurs or gallops. Abdomen: Soft nontender, nondistended without rebound guarding or rigidity. Extremities: No cyanosis clubbing or edema. No calf tenderness or assymetry. Her left knee is markedly swollen with diffuse bruising. She has a scar from a previous knee replacement. Distally she has normal pulses in the foot. She has no hip pain. Spine/Back. Non tender to palpation. No CVA tenderness. She does have some mild healing bruises in the left lower flank. Skin: Good turgor without rashes. Neurologic exam: Cranial nerves two through 12 are intact. Motor and sensation are intact and symmetrical throughout. Course Administered Medications Discontinued Medications Ioversol (Optiray 320 100ml) 94 ml IV ONCE ONE Stop: 09/11/21 10:53 Last Admin: 09/11/21 10:54 Dose: 94 ml Documented by: [id number] Ondansetron HCl (Ondansetron Inj 2 Mg/Ml 2 Ml Vial) 4 mg IV NOW STA Stop: 09/11/21 10:15 Last Admin: 09/11/21 10:23 Dose: 4 mg Documented by: [id number] Medical Decision Making Differential Diagnosis Fracture, hematoma, contusion, traumatic injuries, DVT, arrhythmia, COVID Medical Records Attestation: I reviewed the patient's medical records. Home Medications Current Medication List: was personally reviewed by me Laboratory Data Attestation: I reviewed the patient's lab results. Result diagrams: 09/11/21 09:30 09/11/21 09:30 Lab Results 09/11/21 09/11/21 09/11/21 Range/Units 09:30 09:30 09:30 WBC 5.73 (4.8-10.8) K/uL RBC 2.15 L (4.2-5.4) M/uL Hgb 7.7 L (12.0-16.0) g/dL Hct 23.7 L (37-47) % MCV 110.2 H (80-100) fL MCH 35.8 H (25-34) pg MCHC 32.5 (32-36) g/dL RDW Std Deviation 63.1 H (36.4-46.3) fL RDW Coeff of Keila 16.9 H (11.5-14.5) % Plt Count 85 L (130-400) K/uL MPV 10.5 H (7.4-10.4) fL Immature Gran % (Auto) 0.5 % Neut % (Auto) 73.0 % Lymph % (Auto) 11.5 % Upton % (Auto) 11.9 % Eos % (Auto) 2.6 % Baso % (Auto) 0.5 % Neut # (Auto) 4.18 (1.4-6.5) K/uL Lymph # (Auto) 0.66 L (1.2-3.4) K/uL Upton # (Auto) 0.68 H (0.11-0.59) K/uL Eos # (Auto) 0.15 (0-0.5) K/uL Baso # (Auto) 0.03 (0-0.2) K/uL Immature Gran # (Auto) 0.03 H (0.00-0.02) K/uL Absolute Nucleated RBC 0.03 H (0-0) K/uL Nucleated RBC % (auto) 0.5 % Hypersegmented Neuts 1+ Platelet Estimate Decreased L (Normal) Ovalocytes 1+ PT 38.7 H (9.0-12.0) Seconds INR 3.9 H (0.9-1.1) APTT 45.0 H (21.0-31.0) Seconds PTT Ratio 1.6 Sodium 138 (136-145) mmol/L Potassium 3.9 (3.5-5.1) mmol/L Chloride 107 (98-107) mmol/L Carbon Dioxide 24 (21-32) mmol/L Anion Gap 7 (3-11) BUN 16 (6-23) mg/dl Creatinine 0.94 (0.6-1.2) mg/dl Est Cr Clr Drug Dosing 39.0 ml/min Est GFR ( Amer) 65.9 ml/min Est GFR (Non-Af Amer) 56.9 ml/min BUN/Creatinine Ratio 17.0 (10-20) Glucose 110 H (70-99(Fasting)) mg/dl Calcium 8.4 L (8.5-10.1) mg/dl Total Bilirubin 1.2 H (0.2-1.0) mg/dl AST 29 (13-39) U/L ALT 19 (7-52) U/L Alkaline Phosphatase 76 (34-104) U/L Troponin I High Sens (0-14) pg/ml Total Protein 5.8 L (6.0-8.3) gm/dl Albumin 3.5 (3.4-5.0) gm/dl Globulin 2.3 L (2.5-4.0) gm/dl Albumin/Globulin Ratio 1.5 (0.9-2) TSH (0.300-4.500) uIu/ml Urine Color Urine Appearance (Clear) Urine pH (4.5-7.5) Ur Specific Crooks (1.000-1.030) Urine Protein (Negative) Urine Glucose (UA) (Negative) Urine Ketones (Negative) Urine Blood (Negative) Urine Nitrite (Negative) Urine Bilirubin (Negative) Urine Urobilinogen (Negative) Ur Leukocyte Esterase (Negative) Urine WBC (Auto) (0-5) /hpf Urine RBC (Auto) (0-4) /hpf U Hyaline Cast (Auto) (0-5) /lpf U Epithel Cells (Auto) (0-5) /lpf Urine Bacteria (Auto) (Negative) SARS-CoV-2, RNA, NAAT (NEGATIVE) Blood Type Antibody Screen Crossmatch 09/11/21 09/11/21 09/11/21 Range/Units 09:30 09:30 09:36 WBC (4.8-10.8) K/uL RBC (4.2-5.4) M/uL Hgb (12.0-16.0) g/dL Hct (37-47) % MCV (80-100) fL MCH (25-34) pg MCHC (32-36) g/dL RDW Std Deviation (36.4-46.3) fL RDW Coeff of Keila (11.5-14.5) % Plt Count (130-400) K/uL MPV (7.4-10.4) fL Immature Gran % (Auto) % Neut % (Auto) % Lymph % (Auto) % Upton % (Auto) % Eos % (Auto) % Baso % (Auto) % Neut # (Auto) (1.4-6.5) K/uL Lymph # (Auto) (1.2-3.4) K/uL Upton # (Auto) (0.11-0.59) K/uL Eos # (Auto) (0-0.5) K/uL Baso # (Auto) (0-0.2) K/uL Immature Gran # (Auto) (0.00-0.02) K/uL Absolute Nucleated RBC (0-0) K/uL Nucleated RBC % (auto) % Hypersegmented Neuts Platelet Estimate (Normal) Ovalocytes PT (9.0-12.0) Seconds INR (0.9-1.1) APTT (21.0-31.0) Seconds PTT Ratio Sodium (136-145) mmol/L Potassium (3.5-5.1) mmol/L Chloride (98-107) mmol/L Carbon Dioxide (21-32) mmol/L Anion Gap (3-11) BUN (6-23) mg/dl Creatinine (0.6-1.2) mg/dl Est Cr Clr Drug Dosing ml/min Est GFR ( Amer) ml/min Est GFR (Non-Af Amer) ml/min BUN/Creatinine Ratio (10-20) Glucose (70-99(Fasting)) mg/dl Calcium (8.5-10.1) mg/dl Total Bilirubin (0.2-1.0) mg/dl AST (13-39) U/L ALT (7-52) U/L Alkaline Phosphatase (34-104) U/L Troponin I High Sens 18.4 H D (0-14) pg/ml Total Protein (6.0-8.3) gm/dl Albumin (3.4-5.0) gm/dl Globulin (2.5-4.0) gm/dl Albumin/Globulin Ratio (0.9-2) TSH 3.866 (0.300-4.500) uIu/ml Urine Color Urine Appearance (Clear) Urine pH (4.5-7.5) Ur Specific Crooks (1.000-1.030) Urine Protein (Negative) Urine Glucose (UA) (Negative) Urine Ketones (Negative) Urine Blood (Negative) Urine Nitrite (Negative) Urine Bilirubin (Negative) Urine Urobilinogen (Negative) Ur Leukocyte Esterase (Negative) Urine WBC (Auto) (0-5) /hpf Urine RBC (Auto) (0-4) /hpf U Hyaline Cast (Auto) (0-5) /lpf U Epithel Cells (Auto) (0-5) /lpf Urine Bacteria (Auto) (Negative) SARS-CoV-2, RNA, NAAT NEGATIVE (NEGATIVE) Blood Type Antibody Screen Crossmatch 09/11/21 09/11/21 Range/Units 10:33 12:32 WBC (4.8-10.8) K/uL RBC (4.2-5.4) M/uL Hgb (12.0-16.0) g/dL Hct (37-47) % MCV (80-100) fL MCH (25-34) pg MCHC (32-36) g/dL RDW Std Deviation (36.4-46.3) fL RDW Coeff of Keila (11.5-14.5) % Plt Count (130-400) K/uL MPV (7.4-10.4) fL Immature Gran % (Auto) % Neut % (Auto) % Lymph % (Auto) % Upton % (Auto) % Eos % (Auto) % Baso % (Auto) % Neut # (Auto) (1.4-6.5) K/uL Lymph # (Auto) (1.2-3.4) K/uL Upton # (Auto) (0.11-0.59) K/uL Eos # (Auto) (0-0.5) K/uL Baso # (Auto) (0-0.2) K/uL Immature Gran # (Auto) (0.00-0.02) K/uL Absolute Nucleated RBC (0-0) K/uL Nucleated RBC % (auto) % Hypersegmented Neuts Platelet Estimate (Normal) Ovalocytes PT (9.0-12.0) Seconds INR (0.9-1.1) APTT (21.0-31.0) Seconds PTT Ratio Sodium (136-145) mmol/L Potassium (3.5-5.1) mmol/L Chloride (98-107) mmol/L Carbon Dioxide (21-32) mmol/L Anion Gap (3-11) BUN (6-23) mg/dl Creatinine (0.6-1.2) mg/dl Est Cr Clr Drug Dosing ml/min Est GFR ( Amer) ml/min Est GFR (Non-Af Amer) ml/min BUN/Creatinine Ratio (10-20) Glucose (70-99(Fasting)) mg/dl Calcium (8.5-10.1) mg/dl Total Bilirubin (0.2-1.0) mg/dl AST (13-39) U/L ALT (7-52) U/L Alkaline Phosphatase (34-104) U/L Troponin I High Sens (0-14) pg/ml Total Protein (6.0-8.3) gm/dl Albumin (3.4-5.0) gm/dl Globulin (2.5-4.0) gm/dl Albumin/Globulin Ratio (0.9-2) TSH (0.300-4.500) uIu/ml Urine Color Yellow Urine Appearance Clear (Clear) Urine pH 7.0 (4.5-7.5) Ur Specific Crooks > 1.045 H (1.000-1.030) Urine Protein Negative (Negative) Urine Glucose (UA) Negative (Negative) Urine Ketones Negative (Negative) Urine Blood Negative (Negative) Urine Nitrite Positive A (Negative) Urine Bilirubin Negative (Negative) Urine Urobilinogen Negative (Negative) Ur Leukocyte Esterase Negative (Negative) Urine WBC (Auto) 5-10 H (0-5) /hpf Urine RBC (Auto) 0-4 (0-4) /hpf U Hyaline Cast (Auto) 1-5 (0-5) /lpf U Epithel Cells (Auto) 10-20 H (0-5) /lpf Urine Bacteria (Auto) 4+ H (Negative) SARS-CoV-2, RNA, NAAT (NEGATIVE) Blood Type A Positive Antibody Screen NEGATIVE Crossmatch See Detail Imaging Data Attestation: I personally reviewed and interpreted this imaging study as follows: My Impression: Left knee x-rayno fracture or dislocation seen. There is a small effusion Chest x-rayno acute infiltrate, failure, pneumothorax seen Radiologist's Impression: Chest X-Ray 09/11/21 09:18 SINGLE VIEW CHEST CLINICAL HISTORY: Generalized weakness. FINDINGS: An AP, portable, upright chest radiograph is compared to study dated . Correlation is made with chest CT dated 05/14/2021. There is evidence of previous cardiac valve surgery. The heart is enlarged noting atherosclerotic calcification of the thoracic aorta. The pulmonary vasculature is noncongested. Mild atelectasis is noted the lung bases. The lungs and pleural spaces are otherwise clear. No pneumothorax is seen. The skeletal structures are osteopenic. The bony thorax is grossly intact. Fusion hardware is partially visualized in the lumbar spine. IMPRESSION: Mild cardiomegaly with no acute cardiopulmonary abnormality. ACT 112: Negative or not required by law. Electronically signed by: Viatliy Tate M.D. 09/11/2021 9:46 AM Knee X-Ray 09/11/21 09:18 LEFT KNEE 3 VIEWS CLINICAL HISTORY: Fall with left knee injury. FINDINGS: AP, crosstable lateral, and sunrise portable views of the left knee are compared to study dated 05/06/2021. The skeletal structures are osteopenic. No acute fracture is seen. A left knee arthroplasty is in near-anatomic alignment. No periprosthetic lucency is identified. There has been undersurface remodeling of the patella. There is a small joint effusion. Significant soft tissue edema is present around the knee, greatest anteriorly and medially. There is advanced atherosclerotic calcification of the popliteal artery. IMPRESSION: 1. Soft tissue edema with no radiographic evidence of acute fracture. 2. Small joint effusion. 3. A left knee arthroplasty is in near anatomic alignment. Electronically signed by: Vitaliy Tate M.D. 09/11/2021 9:47 AM Venous Doppler Study 09/11/21 09:18 ULTRASOUND LEFT LOWER EXTREMITY VENOUS CLINICAL HISTORY: Left leg pain. COMPARISON STUDY: Bilateral lower extremity venous ultrasound dated 02/06/2016. TECHNIQUE: Real-time, grayscale, and color Doppler sonography of the deep veins of the left lower extremity was performed from the inguinal crease to the calf. Compression and augmentation were utilized. FINDINGS: There is no sonographic evidence of deep venous thrombosis identified in the left lower extremity. The common femoral, superficial femoral, and popliteal veins are patent and normally compressible. The greater saphenous vein and the profunda femoris vein at the junction with the common femoral vein are clear. The visualized calf veins are patent. No organized fluid collection is seen in the thigh. IMPRESSION: There is no sonographic evidence of deep venous thrombosis identified in the left lower extremity. ACT 112: Negative or not required by law. Electronically signed by: Vitaliy Tate M.D. 09/11/2021 10:36 AM Abdomen/Pelvis CT 09/11/21 10:13 CT SCAN OF THE ABDOMEN AND PELVIS WITH IV CONTRAST CLINICAL HISTORY: Fall. Flank pain. COMPARISON STUDY: Abdominal CT dated 08/21/2021. TECHNIQUE: Following the IV administration of 94 cc of Optiray 320, CT scan of the abdomen and pelvis is performed from the lung bases to the proximal femora. Images are reviewed in the axial, sagittal, and coronal planes. IV contrast was administered without complication. A dose lowering technique was utilized adhering to the principles of ALARA. The examination is degraded by streak artifact from metallic spinal hardware. FINDINGS: Lung bases: There is evidence of previous aortic valve surgery. The heart is mildly enlarged and without pericardial effusion. A fat-containing Bochdalek hernia is noted at the right lung base. Fibrotic change at both lung bases is similar to previous. There is no airspace consolidation typical for pneumonia pleural effusion. Presumed round atelectasis at the left lung base is unchanged from prior studies. No basilar pneumothorax is seen. A small hiatal hernia is noted. Liver: The contrast-enhanced liver is normal in size, contour, and attenuation. There is no intrahepatic biliary ductal dilatation. The hepatic veins and portal veins are patent. Gallbladder: Unremarkable. Spleen: Normal in size and attenuation. There are calcified splenic granulomas. Pancreas: Moderately atrophic and grossly unremarkable. Adrenal glands: Unremarkable. Kidneys: The contrast enhanced kidneys demonstrate cortical atrophy and are without hydronephrosis. The kidneys enhance symmetrically. There are numerous bilateral nonobstructing renal calculi which measure up to 5 mm. Abdominal vasculature: The abdominal aorta is normal in course and caliber noting advanced atherosclerotic calcification. Bowel: There is mild colonic diverticulosis with no CT evidence of acute diverticulitis. No bowel obstruction is seen. The appendix is well-visualized and normal. Peritoneum: There is no intraperitoneal free air or abdominal ascites. Lymphadenopathy: None. Pelvic viscera: The bladder wall is circumferentially thickened with mild stranding infiltration. Intraluminal gas is noted. The uterus is surgically absent. No adnexal lesion is seen. Skeletal structures: The skeletal structures are osteopenic. There are 6 lumbar type vertebral bodies. There is advanced lumbosacral spondylosis with postoperative change from L4-S1 spinal fusion. There is a subacute burst type compression fracture of L3 (labeled L2 on prior examinations). Fracture involves both pedicles. There is also a subacute inferior endplate compression fracture o f L2. No lytic or blastic lesions are seen. There is chronic posttraumatic deformity of the sacrum. IMPRESSION: 1. There is no evidence of solid organ injury in the abdomen or pelvis. 2. There is a subacute burst type compression fracture of L3 (previously labeled L2 as there are 6 lumbar type vertebral bodies) which involves both pedicles. 3. There is a subacute inferior endplate compression fracture of L2. 4. Bilateral nephrolithiasis. 5. Additional findings as above. ACT 112: Negative or not required by law. Electronically signed by: Vitaliy Tate M.D. 09/11/2021 11:[address] 09/11/21 10:13 CT OF THE CERVICAL SPINE WITHOUT CONTRAST CLINICAL HISTORY: fall COMPARISON STUDY: Cervical spine CT August 21, 2021. CTA of the neck September 03, 2021. TECHNIQUE: Helical axial images of the cervical spine were obtained without IV contrast. Sagittal and coronal reconstructions were viewed. Automated exposure control was utilized for the study. A dose lowering technique was utilized adhering to the principles of ALARA. FINDINGS: Alignment of the cervical spine is anatomic. Vertebral body heights are maintained. No acute cervical spine fracture or subluxation is present. There is no prevertebral edema. Facet joints are intact. Note is made of moderate multilevel degenerative changes within the cervical spine. The appearance of the cervical spine is unchanged since prior CT of August 21, 2021. IMPRESSION: No acute cervical spine fracture or subluxation. ACT 112: Negative or not required by law. Electronically signed by: Christian Lora M.D. 09/11/2021 11:[address] 09/11/21 10:13 CT chest diagnostic w con CLINICAL HISTORY: fall . Pain COMPARISON STUDY: 06/01/2021 CT DOSE: TECHNIQUE: Standard CT of the Chest was performed with IV contrast. A dose lowering technique was utilized adhering to the principles of ALARA. Contrast Volume: Optiray 320, 94 ml FINDINGS: Airway: The airway is clear. No endobronchial lesion is identified. Lungs: The lungs are clear of acute alveolar opacities, air bronchograms or pulmonary nodules. Minimal chronic pleural scarring is seen at the left lung base posterolaterally. Pleura: There is no evidence for pleural effusion. There is no evidence for pne umothorax. Mediastinum: There is no evidence for pathologic adenopathy. Heart is again mildly enlarged. There is again extensive coronary artery calcification and aortic valve replacement. The thoracic aorta is within normal limits. Atherosclerotic calcification is present. There is no evidence for pericardial effusion. Upper abdomen: The adrenal glands are normal bilaterally. Bilateral nonobstructing renal calculi are again seen. Osseous structures: There is no acute osseous pathology. Degenerative changes are present within the spine. IMPRESSION: 1. No acute chest disease. 2. Mild cardiomegaly with coronary artery calcification and aortic valve replacement is again seen. 3. Nonobstructing bilateral renal calculi are again seen. 4. Additional nonacute findings are delineated above. ACT 112: Negative or not required by law. Electronically signed by: Speedy Caicedo M.D. 09/11/2021 11:[address] 09/11/21 10:13 CT SCAN OF THE BRAIN WITHOUT IV CONTRAST CLINICAL HISTORY: Fall. COMPARISON STUDY: CT of the brain dated 09/03/2021. TECHNIQUE: Unenhanced axial CT scan of the brain is performed from the vertex to the skull base. A dose lowering technique was utilized adhering to the principles of ALARA. The skull base was scanned twice due to motion artifact. CT DOSE: 1480.62 mGy.cm FINDINGS: Brain parenchyma: There is age-related involutional change noting moderate subcortical and periventricular microangiopathic disease. There is no hemorrhage, mass effect, or evidence of acute territorial ischemia by CT criteria. Chamberlain-white matter differentiation is preserved. No extra-axial fluid collection is seen. Ventricles, sulci, cisterns: Prominent secondary to involutional change. Intracranial vasculature: There is atherosclerotic calcification of the cavernous carotid and vertebral arteries. Calvarium: The skeletal structures are osteopenic. No depressed calvarial fracture is identified. Sinuses and mastoids: The visualized paranasal sinuses are clear. There is a right mastoid effusion. The left mastoid air cells are well pneumatized. Orbits: The bony orbits are grossly intact. There are bilateral ocular lens implants. IMPRESSION: There is no hemorrhage, mass effect, or evidence of acute territorial ischemia by CT criteria. ACT 112: Negative or not required by law. Electronically signed by: Vitaliy Tate M.D. 09/11/2021 11:[address] 09/11/21 12:42 CT OF THE LUMBAR SPINE CLINICAL HISTORY: eval for L3 burst fracture COMPARISON STUDY: Lumbar spine CT October 15, 2020. MRI of the lumbar spine 2021. TECHNIQUE: Helical axial images of the lumbar spine were obtained. Sagittal and coronal reconstructions were viewed. Automated exposure control was utilized for the study. A dose lowering technique was utilized adhering to the principles of ALARA. FINDINGS: Please note that the abdomen and pelvis CT will be reported separately. 6 lumbar type vertebra are noted. For purposes of numbering on this exam, the L6-S1 disc space is assigned to axial image 264 of 337. When utilizing this numbering scheme, there is an L6-S1 discectomy with interbody spacer placement. Posterior decompression with bilateral screw fusion from L4 through S1 is noted. There is a mild compression fracture of the inferior endplate of L2 with 15% loss of vertebral body height. No extension into the posterior elements is noted. There is no retropulsion at this level. Note is made of a subacute burst type compression fracture of L3 with 3 mm of retropulsion at the level of the superior endplate. This results in mild central canal narrowing. There are also subacute fractures of the bilateral pedicles at the L3 level. No additional lumbar spine fractures are noted. There is an old healed S2 fracture. Multilevel disc space narrowing, osteophytosis and vacuum disc phenomenon is noted at multiple levels within the lower thoracic and lumbar spine. There is moderate facet arthrosis. Central canal and neural foramen are suboptimally assessed by CT. Bilateral renal calculi are noted. These are better depicted on the abdominal CT. IMPRESSION: 1. Subacute burst type compression fracture of L3 (please see above numbering scheme of the lumbar spine with 6 lumbar type vertebra) which involves both pedicles. Minimal retropulsion at the level of the superior endplate. 2. Mild subacute inferior endplate compression fracture of L2. 3. Postoperative findings within the lumbosacral spine, as described above. ACT 112: Negative or not required by law. Electronically signed by: Christian Lora M.D. 09/11/2021 1:16 PM ECG Data Attestation: I personally reviewed and interpreted this ECG as follows: Indication: + weakness Rate (beats per minute): 88 Rhythm: + normal sinus ECG Intervals/blocks: + Normal QRS, + Normal QT and + Normal MD ECG [place]: + Left axis deviation ECG ST segments: + Nonspecific ST abnormalities ECG Findings: no PACs or no PVCs Comparison ECG Date: from (09/03/21) Change: no significant change Additional Comments: EKG #2: Normal sinus rhythm with first-degree AV block. No acute ischemic changes or ectopy. Left anterior fascicular block. No significant ST or T wave abnormalities, nonspecific changes. No significant change compared to EKG #1. MDM Narrative This patient comes in as described above. she apparently suffered a fall a couple days ago and has increasing pain and swellingto the left knee. she is on Coumadin has a significant area of bruising around the knee. She has no evidenc e of compartment syndrome or neurovascular compromise. I do suspect that she has a significant hematoma. X-rays were obtained here also did an ultrasound given her history of DVT blood work was obtained I reviewed her old records I also did an EKG. She was reassessed frequently. Her hemoglobin came out low at 7.7 she normally runs anemic but this is significantly down. In light of this I also did a lindsay trauma CAT scans as she has some mild bruising on her chest and also flank. She does have subacute burst fractures in the lumbar spine but no other acute injuries and no acute internal bleeding seen. She did have a brief episode of chest pain. Initial EKG and troponin were negative I did another EKG and it shows no change when compared to the first. This may have been from the bruising to her chest. High-sensitivity troponin was just mildly elevated and this may need to be trended further in the hospital. ULtrasound of her leg shows no evidence of DVT. She is been typed and crossed for possible transfusion. I do think she needs to be admitted for further treatment and eval uation and have consulted the [facility] hospitalist team to see her they also run the case by Dr. Gonzalez our spine surgeon. I did discuss the case with her son Martín as well. She will be admitted. Continuous cardiac monitoring: An order was placed in the EMR for continuous cardiac monitoring. [place] interpretation patient was noted be in normal sinus rhythm rate of 75. Impression & Plan Weakness, Fall, Chest pain, Anemia, Lumbar burst fracture, Lab test negative for COVID-19 virus, Acute knee pain, Left knee injury Discharge Plan Visit Data Chief Complaint: Fall Stated Complaint: L KNEE PAIN ED Provider: Scot Crisostomo Discharge Problem: Weakness, Fall, Chest pain, Anemia, Lumbar burst fracture, Lab test negative for COVID-19 virus, Acute knee pain, Left knee injury Forms Stand Alone Forms: [facility] Prescriptions Prescriptions: No Action atorvastatin 40 mg tablet 40 mg PO QAM RF: 0 metoprolol succinate 50 mg tablet extended release 24 hr 50 mg PO BID RF: 0 prednisone 5 mg Tablet 5 mg PO QAM RF: 0 folic acid 1 mg Tablet 2 mg PO QAM RF: 0 methotrexate sodium 2.5 mg tablet 10 mg PO FR RF: 0 clopidogrel 75 mg tablet 75 mg PO QAM RF: 0 amlodipine [Norvasc] 5 mg Tablet 5 mg PO QAM Qty: 30 RF: 1 pantoprazole 40 mg tablet,delayed release (DR/EC) 40 mg PO QAM RF: 0 ezetimibe 10 mg tablet 10 mg PO QAM RF: 0 leflunomide 20 mg tablet 20 mg PO QAM RF: 0 ferrous sulfate 325 mg (65 mg iron) tablet 325 mg PO BID RF: 0 tramadol 50 mg tablet 50 mg PO BID RF: 0 ondansetron 4 mg tablet,disintegrating 4 mg translingual DAILY PRN (Reason: Nausea) RF: 0 levothyroxine 50 mcg tablet 50 mcg PO QAM RF: 0 multivitamin,kj-wlok-Oz-FA-min 27-0.4 mg Tablet 1 tab PO QAM RF: 0 Saccharomyces boulardii [Florastor] 250 mg Capsule 250 mg PO QAM RF: 0 cyanocobalamin (vitamin B-12) [Vitamin B-12] 500 mcg Tablet 500 mcg PO QAM RF: 0 warfarin 2.5 mg Tablet See Rx Instructions .ROUTE .COMPLEX RF: 0 gabapentin 100 mg capsule 200 mg PO TID Qty: 0 RF: 0 Referrals Referrals: [facility] [Primary Care Provider] - Discharge Problem: Fall Qualifiers: Encounter type: initial encounter Qualified Code(s): W19.XXXA - Unspecified fall, initial encounter Chest pain Qualifiers: Chest pain type: precordial pain Qualified Code(s): R07.2 - Precordial pain Anemia Qualifiers: Anemia type: unspecified type Qualified Code(s): D64.9 - Anemia, unspecified Lumbar burst fracture Qualifiers: Encounter type: initial encounter Fracture type: closed Qualified Code(s): S32.001A - Stable burst fracture of unspecified lumbar vertebra, initial encounter for closed fracture Acute knee pain Qualifiers: Laterality: left Qualified Code(s): M25.562 - Pain in left knee Left knee injury Qualifiers: Encounter type: initial encounter Qualified Code(s): S89.92XA - Unspecified injury of left lower leg, initial encounter
--- NOTE | 2021-09-11 09:47 | XRay Report ---
SINGLE VIEW CHEST CLINICAL HISTORY: Generalized weakness. FINDINGS: An AP, portable, upright chest radiograph is compared to study dated . Correlation is made with chest CT dated 05/14/2021. There is evidence of previous cardiac valve surgery. The heart i s enlarged noting atherosclerotic calcification of the thoracic aorta. The pulmonary vasculature is n oncongested. Mild atelectasis is noted the lung bases. The lungs and pleural spaces are otherwise edwige ar. No pneumothorax is seen. The skeletal structures are osteopenic. The bony thorax is grossly intac t. Fusion hardware is partially visualized in the lumbar spine. IMPRESSION: Mild cardiomegaly with no acute cardiopulmonary abnormality. ACT 112: Negative or not required by law. Electronically signed by: Vitaliy Tate M.D. 09/11/2021 9:46 AM
--- NOTE | 2021-09-11 09:49 | XRay Report ---
LEFT KNEE 3 VIEWS CLINICAL HISTORY: Fall with left knee injury. FINDINGS: AP, crosstable lateral, and sunrise portable views of the left knee are compared to study d ated 05/06/2021. The skeletal structures are osteopenic. No acute fracture is seen. A left knee arthrop lasty is in near-anatomic alignment. No periprosthetic lucency is identified. There has been undersur face remodeling of the patella. There is a small joint effusion. Significant soft tissue edema is pre sent around the knee, greatest anteriorly and medially. There is advanced atherosclerotic calcificati on of the popliteal artery. IMPRESSION: 1. Soft tissue edema with no radiographic evidence of acute fracture. 2. Small joint effusion. 3. A left knee arthroplasty is in near anatomic alignment. Electronically signed by: Vitaliy Tate M.D. 09/11/2021 9:47 AM
[2021-09-11 09:52] LABS: Hematocrit (blood only) 23.7 % (37-47); Hemoglobin 7.7 g/dL (12.0-16.0); Mean Corpuscular Hemoglobin 35.8 pg (25-34); Mean Corpuscular Hgb Conc 32.5 g/dL (32-36); Mean Corpuscular Volume 110.2 fL (80-100); Nucleated RBC # (auto) 0.03 K/uL (0-0); Nucleated RBC % (auto) 0.5 %; RDW Coefficient of Variation 16.9 % (11.5-14.5); RDW Standard Deviation 63.1 fL (36.4-46.3); Red Blood Count 2.15 M/uL (4.2-5.4); White Blood Count 5.73 K/uL (4.8-10.8)
[2021-09-11 09:59] LABS: INR 3.9 (0.9-1.1); Partial Thromboplastin Ratio 1.6; Prothrombin Time 38.7 Seconds (9.0-12.0)
[2021-09-11 10:06] LABS: Albumin Globulin Ratio 1.5 (0.9-2); Albumin Level 3.5 gm/dl (3.4-5.0); Bilirubin,Total 1.2 mg/dl (0.2-1.0); Calcium 8.4 mg/dl (8.5-10.1); Est GFR (African American) 65.9 ml/min; Est GFR (Non-African American) 56.9 ml/min; Globulin 2.3 gm/dl (2.5-4.0); Potassium 3.9 mmol/L (3.5-5.1); Total Protein 5.8 gm/dl (6.0-8.3)
[2021-09-11] MEDS ORDERED: SODIUM CHLORIDE 0.9% 250 ML IV PRN ×2 (10:14→20:35)
[2021-09-11] MEDS ORDERED: ONDANSETRON INJ 2 MG/ML 2 ML VIAL IV STA (10:14)
[2021-09-11 10:33] LABS: Mean Platelet Volume 10.5 fL (7.4-10.4); Platelet Count 85 K/uL (130-400)
[2021-09-11 10:35] LABS: Basophils # (auto) 0.03 K/uL (0-0.2); Basophils % (auto) 0.5 %; Eosinophils # (auto) 0.15 K/uL (0-0.5); Eosinophils % (auto) 2.6 %; Immature Granulocytes # (auto) 0.03 K/uL (0.00-0.02); Immature Granulocytes % (auto) 0.5 %; Lymphocytes # (auto) 0.66 K/uL (1.2-3.4); Lymphocytes % (auto) 11.5 %; Monocytes # (auto) 0.68 K/uL (0.11-0.59); Monocytes % (auto) 11.9 %; Neutrophils # (auto) 4.18 K/uL (1.4-6.5); Ovalocytes 1+; Platelet Estimate Decreased (Normal)
--- NOTE | 2021-09-11 10:38 | Ultrasound Report ---
ULTRASOUND LEFT LOWER EXTREMITY VENOUS CLINICAL HISTORY: Left leg pain. COMPARISON STUDY: Bilateral lower extremity venous ultrasound dated 02/06/2016. TECHNIQUE: Real-time, grayscale, and color Doppler sonography of the deep veins of the left lower ext remity was performed from the inguinal crease to the calf. Compression and augmentation were utilized . FINDINGS: There is no sonographic evidence of deep venous thrombosis identified in the left lower ext remity. The common femoral, superficial femoral, and popliteal veins are patent and normally compress ible. The greater saphenous vein and the profunda femoris vein at the junction with the common femora l vein are clear. The visualized calf veins are patent. No organized fluid collection is seen in the thigh. IMPRESSION: There is no sonographic evidence of deep venous thrombosis identified in the left lower e xtremity. ACT 112: Negative or not required by law. Electronically signed by: Vitaliy Tate M.D. 09/11/2021 10:36 AM
[2021-09-11] MEDS ORDERED: OPTIRAY 320 100ml IV ONE (10:52)
--- NOTE | 2021-09-11 11:07 | CT Scan Report ---
CT SCAN OF THE BRAIN WITHOUT IV CONTRAST CLINICAL HISTORY: Fall. COMPARISON STUDY: CT of the brain dated 09/03/2021. TECHNIQUE: Unenhanced axial CT scan of the brain is performed from the vertex to the skull base. A do se lowering technique was utilized adhering to the principles of ALARA. The skull base was scanned tw ice due to motion artifact. CT DOSE: 1480.62 mGy.cm FINDINGS: Brain parenchyma: There is age-related involutional change noting moderate subcortical and periventri cular microangiopathic disease. There is no hemorrhage, mass effect, or evidence of acute territorial ischemia by CT criteria. Chamberlain-white matter differentiation is preserved. No extra-axial fluid collec tion is seen. Ventricles, sulci, cisterns: Prominent secondary to involutional change. Intracranial vasculature: There is atherosclerotic calcification of the cavernous carotid and vertebr al arteries. Calvarium: The skeletal structures are osteopenic. No depressed calvarial fracture is identified. Sinuses and mastoids: The visualized paranasal sinuses are clear. There is a right mastoid effusion. The left mastoid air cells are well pneumatized. Orbits: The bony orbits are grossly intact. There are bilateral ocular lens implants. IMPRESSION: There is no hemorrhage, mass effect, or evidence of acute territorial ischemia by CT jason rosenbaum. ACT 112: Negative or not required by law. Electronically signed by: Vitaliy Tate M.D. 09/11/2021 11:06 AM
--- NOTE | 2021-09-11 11:10 | CT Scan Report ---
CT OF THE CERVICAL SPINE WITHOUT CONTRAST CLINICAL HISTORY: fall COMPARISON STUDY: Cervical spine CT August 21, 2021. CTA of the neck September 03, 2021. TECHNIQUE: Helical axial images of the cervical spine were obtained without IV contrast. Sagittal a nd coronal reconstructions were viewed. Automated exposure control was utilized for the study. A do se lowering technique was utilized adhering to the principles of ALARA. FINDINGS: Alignment of the cervical spine is anatomic. Vertebral body heights are maintained. No acut e cervical spine fracture or subluxation is present. There is no prevertebral edema. Facet joints are intact. Note is made of moderate multilevel degenerative changes within the cervical spine. The kaylee earance of the cervical spine is unchanged since prior CT of August 21, 2021. IMPRESSION: No acute cervical spine fracture or subluxation. ACT 112: Negative or not required by law. Electronically signed by: Christian Lora M.D. 09/11/2021 11:08 AM
--- NOTE | 2021-09-11 11:13 | CT Scan Report ---
CT chest diagnostic w con CLINICAL HISTORY: fall . Pain COMPARISON STUDY: 06/01/2021 CT DOSE: TECHNIQUE: Standard CT of the Chest was performed with IV contrast. A dose lowering technique was u tilized adhering to the principles of ALARA. Contrast Volume: Optiray 320, 94 ml FINDINGS: Airway: The airway is clear. No endobronchial lesion is identified. Lungs: The lungs are clear of acute alveolar opacities, air bronchograms or pulmonary nodules. Minima l chronic pleural scarring is seen at the left lung base posterolaterally. Pleura: There is no evidence for pleural effusion. There is no evidence for pneumothorax. Mediastinum: There is no evidence for pathologic adenopathy. Heart is again mildly enlarged. There is again extensive coronary artery calcification and aortic valve replacement. The thoracic aorta is wi thin normal limits. Atherosclerotic calcification is present. There is no evidence for pericardial ef fusion. Upper abdomen: The adrenal glands are normal bilaterally. Bilateral nonobstructing renal calculi are again seen. Osseous structures: There is no acute osseous pathology. Degenerative changes are present within the spine. IMPRESSION: 1. No acute chest disease. 2. Mild cardiomegaly with coronary artery calcification and aortic valve replacement is again seen. 3. Nonobstructing bilateral renal calculi are again seen. 4. Additional nonacute findings are delineated above. ACT 112: Negative or not required by law. Electronically signed by: Speedy Caicedo M.D. 09/11/2021 11:11 AM
--- NOTE | 2021-09-11 11:29 | CT Scan Report ---
CT SCAN OF THE ABDOMEN AND PELVIS WITH IV CONTRAST CLINICAL HISTORY: Fall. Flank pain. COMPARISON STUDY: Abdominal CT dated 08/21/2021. TECHNIQUE: Following the IV administration of 94 cc of Optiray 320, CT scan of the abdomen and pelvi s is performed from the lung bases to the proximal femora. Images are reviewed in the axial, sagittal , and coronal planes. IV contrast was administered without complication. A dose lowering technique wa s utilized adhering to the principles of ALARA. The examination is degraded by streak artifact from m etallic spinal hardware. FINDINGS: Lung bases: There is evidence of previous aortic valve surgery. The heart is mildly enlarged and with out pericardial effusion. A fat-containing Bochdalek hernia is noted at the right lung base. Fibrotic change at both lung bases is similar to previous. There is no airspace consolidation typical for pne umonia pleural effusion. Presumed round atelectasis at the left lung base is unchanged from prior brinda dies. No basilar pneumothorax is seen. A small hiatal hernia is noted. Liver: The contrast-enhanced liver is normal in size, contour, and attenuation. There is no intrahepa tic biliary ductal dilatation. The hepatic veins and portal veins are patent. Gallbladder: Unremarkable. Spleen: Normal in size and attenuation. There are calcified splenic granulomas. Pancreas: Moderately atrophic and grossly unremarkable. Adrenal glands: Unremarkable. Kidneys: The contrast enhanced kidneys demonstrate cortical atrophy and are without hydronephrosis. T he kidneys enhance symmetrically. There are numerous bilateral nonobstructing renal calculi which marco a sure up to 5 mm. Abdominal vasculature: The abdominal aorta is normal in course and caliber noting advanced atheroscle rotic calcification. Bowel: There is mild colonic diverticulosis with no CT evidence of acute diverticulitis. No bowel obs truction is seen. The appendix is well-visualized and normal. Peritoneum: There is no intraperitoneal free air or abdominal ascites. Lymphadenopathy: None. Pelvic viscera: The bladder wall is circumferentially thickened with mild stranding infiltration. Int raluminal gas is noted. The uterus is surgically absent. No adnexal lesion is seen. Skeletal structures: The skeletal structures are osteopenic. There are 6 lumbar type vertebral bodies . There is advanced lumbosacral spondylosis with postoperative change from L4-S1 spinal fusion. There is a subacute burst type compression fracture of L3 (labeled L2 on prior examinations). Fracture inv olves both pedicles. There is also a subacute inferior endplate compression fracture of L2. No lytic or blastic lesions are seen. There is chronic posttraumatic deformity of the sacrum. IMPRESSION: 1. There is no evidence of solid organ injury in the abdomen or pelvis. 2. There is a subacute burst type compression fracture of L3 (previously labeled L2 as there are 6 yaneli mbar type vertebral bodies) which involves both pedicles. 3. There is a subacute inferior endplate compression fracture of L2. 4. Bilateral nephrolithiasis. 5. Additional findings as above. ACT 112: Negative or not required by law. Electronically signed by: Vitaliy Tate M.D. 09/11/2021 11:27 AM
--- NOTE | 2021-09-11 13:19 | CT Scan Report ---
CT OF THE LUMBAR SPINE CLINICAL HISTORY: eval for L3 burst fracture COMPARISON STUDY: Lumbar spine CT October 15, 2020. MRI of the lumbar spine May 12, 2021. TECHNIQUE: Helical axial images of the lumbar spine were obtained. Sagittal and coronal reconstruct ions were viewed. Automated exposure control was utilized for the study. A dose lowering technique was utilized adhering to the principles of ALARA. FINDINGS: Please note that the abdomen and pelvis CT will be reported separately. 6 lumbar type verte bra are noted. For purposes of numbering on this exam, the L6-S1 disc space is assigned to axial imag e 264 of 337. When utilizing this numbering scheme, there is an L6-S1 discectomy with interbody space r placement. Posterior decompression with bilateral screw fusion from L4 through S1 is noted. There i s a mild compression fracture of the inferior endplate of L2 with 15% loss of vertebral body height. No extension into the posterior elements is noted. There is no retropulsion at this level. Note is ma de of a subacute burst type compression fracture of L3 with 3 mm of retropulsion at the level of the superior endplate. This results in mild central canal narrowing. There are also subacute fractures of the bilateral pedicles at the L3 level. No additional lumbar spine fractures are noted. There is an old healed S2 fracture. Multilevel disc space narrowing, osteophytosis and vacuum disc phenomenon is noted at multiple levels within the lower thoracic and lumbar spine. There is moderate facet arthrosi s. Central canal and neural foramen are suboptimally assessed by CT. Bilateral renal calculi are note d. These are better depicted on the abdominal CT. IMPRESSION: 1. Subacute burst type compression fracture of L3 (please see above numbering scheme of the lumbar sp ine with 6 lumbar type vertebra) which involves both pedicles. Minimal retropulsion at the level of t he superior endplate. 2. Mild subacute inferior endplate compression fracture of L2. 3. Postoperative findings within the lumbosacral spine, as described above. ACT 112: Negative or not required by law. Electronically signed by: Christian Lora M.D. 09/11/2021 1:16 PM
[2021-09-11 13:23] LABS: Appearance Urine Clear (Clear); Bacteria Urine Automated 4+ (Negative); Bilirubin Urine Negative (Negative); Blood Urine Negative (Negative); Color Urine Yellow; Glucose Urine UA Negative (Negative); Ketones Urine Negative (Negative); Leukocyte Esterase Urine Negative (Negative); Nitrite Urine Positive (Negative); Protein Urine Negative (Negative); RBC Urine Automated 0-4 /hpf (0-4); Specific Gravity Urine > 1.045 (1.000-1.030); Urobilinogen Urine Negative (Negative)
[2021-09-11] MEDS ORDERED: cefTRIAXone SODIUM 1,000 MG/50 ML BAG IV STA (16:48)
--- NOTE | 2021-09-11 16:48 | Communication Note ---
Date of Service: September 11, 2021 Patient seen and examined. Patient is a very poor historian. History obtained from ER physician. Patient had reportedly fallen at nursing facility few days ago and had left knee bruise and swelling which had increased necessitating presentation to the ER. On exam, General: Elderly woman in no acute distress Eyes: PERRL, conjunctivae normal, not pale, anicteric sclerae, EOM intact bilaterally ENMT: External ear and nose normal, oropharynx normal Respiratory: Normal respiratory effort, no respiratory distress, lungs clear to auscultation, no crackles and no wheezes Cardiovascular: RRR S1 S2 Chest (Breasts): Chest: Bruises over chest wall anteriorly Gastrointestinal (Abdomen): Abdomen is not distended, soft, non-tender to palpa tion, no guarding, no palpable hepatosplenomegaly, normal bowel sounds Musculoskeletal: Left knee swelling, tenderness. Ecchymoses over left thigh and leg Genitourinary: No CVA tenderness Neurologic: Alert and oriented to person, knows she is in a hospital but does not remember name, not oriented to time, cooperative Psychiatric: Euthymic affect Labs notable for hemoglobin of 7.7 [was 9.4 a week ago], MCV of 110, platelet of 85, INR of 3.9, bilirubin of 1.2, troponin at bedtime of 18.4 UA noted 5-10 WBC, positive urine nitrite Abdominal pelvic CT reported subacute burst type compression fracture of L3, subacute inferior endplate compression fracture of L2, bilateral nephrolithiasis Left knee x-ray shows noted soft tissue edema with no radiographic evidence of acute fracture, small joint effusion and left knee arthroplasty is in near anatomic alignment. CT head did not show any acute infarcts, hemorrhage Fall Left knee swelling. Cannot rule out hematoma Supratherapeutic INR Acute on chronic microcytic anemia Thrombocytopenia Hold warfarin and monitor INR Monitor hemoglobin. If dropping, reverse INR. Will hold Plavix for today. However, patient is high risk considering recent stroke and other comorbidities. So we will need to reassess resuming these medications as soon as possible Ortho consult to assess left knee Orthospine consult for fractures noted on lumbar CT and abdominal pelvic CT Started on ceftriaxone for possible UTI. Follow up urine culture Will need PT/OT eventually Agree with other plans as detailed by Ani CALDERA
--- NOTE | 2021-09-11 18:21 | Electrocardiogram Report ---
Test Reason : Blood Pressure : / mmHG Vent. Rate : 088 BPM Atrial Rate : 088 BPM P-R Int : 194 ms QRS Dur : 088 ms QT Int : 370 ms P-R-T Axes : 046 -48 081 degrees QTc Int : 447 ms Poor data quality, interpretation may be adversely affected Normal sinus rhythm Left anterior fascicular block Moderate voltage criteria for LVH, may be normal variant Nonspecific ST and T wave abnormality Abnormal ECG Confirmed by Zackary Mandel ([id number]) on 09/11/2021 6:21:21 PM Referred By: ER Confirmed By:Jd Mandel
--- NOTE | 2021-09-11 18:52 | History & Physical Report ---
Date of Service September 11, 2021 Assessment & Plan (1) Fall: (2) Leg hematoma: Plan: Admit to [facility] Patient presenting from [facility] for evaluation after fall and subsequent left knee pain, swelling, bruising In the ED, left knee XR negative for fracture On exam, patient is found to have significant hematoma On Coumadin, INR 3.9 -- given recent retinal artery branch occlusion, will not reverse at this time Holding Plavix and Coumadin --however resume as soon as possible due to recent retinal artery branch occlusion and history of DVT Ortho consult (3) Anemia: Plan: Hgb 7.7, baseline ~ 10 Likely acute blood loss anemia due to leg hematoma Monitor H&H, transfuse as needed (4) Compression fracture: Plan: CT lumbar spine shows Subacute burst type compression fracture of L3 which involves both pedicles. Minimal retropulsion at the level of the superior endplate. Mild subacute inferior endplate compression fracture of L2. Discussed with Dr. Gonzalez who reviewed images and feels these fractures are chronic -- consult placed (5) Abnormal urinalysis: Plan: UA nitrite and bacteria positive, will start IV ceftriaxone Follow urine culture (6) Thrombocytopenia: Plan: platelets 85K appear to have been low in the past Monitor CBC (7) Retinal artery branch occlusion of right eye: Plan: Diagnosed on 09/03/2021 Continue statin Resume Plavix and warfarin as soon as possible (8) Paroxysmal SVT (supraventricular tachycardia): Plan: History of, continue metoprolol (9) History of DVT (deep vein thrombosis): Plan: Holding Coumadin as above (10) CAD (coronary artery disease): Plan: Appears stable, no reports of chest pain Continue statin, Zetia, and beta-danielito Holding Plavix as above (11) HTN (hypertension): Plan: BP controlled, continue amlodipine and metoprolol (12) Hypothyroidism: Plan: Continue levothyroxine (13) DVT prophylaxis: Plan: SCDs when INR < 2.0 (14) Discharge planning issues: Plan: Patient from [facility]. POLST form was sent with the patient however it has not been signed by a provider. DNR/DNI/comfort measures were indicated on the form. Discussed with patient's son, Martín. States that [facility] called him and stated that they were sending his mother to the ED due to increased left knee pain. He is in agreement with plan as outlined above however would not want any further aggressive measures taken. Admission and Anticipated Discharge Date Admission Date: September 11, 2021 History of Present Illness Chief Complaint: Fall, left knee pain Primary Care Provider: [facility] 80-year-old female with PMH HLD, INA, history of SVT, CAD s/p TYLER to LAD x 2, pulmonary embolism anticoagulated on Coumadin, aortic stenosis, CKD stage III, rheumatoid arthritis on chronic prednisone, dementia, and other problems listed below who presents to the ED for evaluation of fall and left knee pain. Patient recently admitted to [facility] 09/03 - 09/04 for retinal artery branch occlusion of right eye. Patient had already been on Plavix, Coumadin, statin. These were all continued and patient was discharged back to [facility]. History is limited from the patient due to underlying dementia. Apparently patient suffered a fall on 09/08. Due to worsening left knee pain, patient was sent to the ED for further evaluation. At time of our exam, patient is resting in bed in no acute distress. She is reporting left knee pain but does not remember falling. She offers no other complaints at this time. Labs show Hgb 7.7, platelets 85K, INR 3.9. UA suggest possible UTI. Patient had extensive imaging completed in the ED. CT lumbar spine showing subacute burst type compression fracture of L3 -- images were reviewed by Dr. Gonzalez who feels this is likely chronic. On exam, patient is noted to have significant hematoma surrounding the left knee. Allergies Allergy/AdvReac Type Severity Reaction Status Date / Time baclofen Allergy Mild DIZZY Verified 09/11/21 10:24 Penicillins Allergy Mild RASH Verified 09/11/21 10:24 Sulfa (Sulfonamide Allergy Mild HEADACHE Verified 09/11/21 10:24 Antibiotics) Home Medications Medication Instructions Recorded Confirmed Type atorvastatin 40 mg tablet 40 mg PO QAM 07/01/18 09/11/21 History metoprolol succinate 50 mg 50 mg PO BID 07/01/18 09/11/21 History tablet,extended release 24 hr prednisone 5 mg tablet 5 mg PO QAM 07/01/18 09/11/21 History folic acid 1 mg tablet 2 mg PO QAM 10/17/19 09/11/21 History methotrexate sodium 2.5 mg tablet 10 mg PO FR 11/14/19 09/11/21 History clopidogrel 75 mg tablet 75 mg PO QAM 05/09/20 09/11/21 History amlodipine 5 mg tablet (Norvasc) 5 mg PO QAM #30 tab 05/10/20 09/11/21 Rx ezetimibe 10 mg tablet 10 mg PO QAM 04/21/21 09/11/21 History pantoprazole 40 mg tablet,delayed 40 mg PO QAM 04/21/21 09/11/21 History release warfarin 2.5 mg tablet See Rx Instructions .ROUTE .COMPLEX 05/04/21 09/11/21 His tory gabapentin 100 mg capsule 200 mg PO TID #0 cap 05/20/21 09/11/21 Rx ferrous sulfate 325 mg (65 mg 325 mg PO BID 08/21/21 09/11/21 History iron) tablet leflunomide 20 mg tablet 20 mg PO QAM 08/21/21 09/11/21 History ondansetron 4 mg disintegrating 4 mg TRANSLINGUAL DAILY PRN 08/21/21 09/11/21 History tablet tramadol 50 mg tablet 50 mg PO BID 08/21/21 09/11/21 History Saccharomyces boulardii 250 mg 250 mg PO QAM 09/03/21 09/11/21 History capsule (Florastor) cyanocobalamin (vitamin B-12) 500 500 mcg PO QAM 09/03/21 09/11/21 History mcg tablet (Vitamin B-12) levothyroxine 50 mcg tablet 50 mcg PO QAM 09/03/21 09/11/21 History multivit,tx with iron 27 1 tab PO QAM 09/03/21 09/11/21 History ig-giahnsh-nezob acid 0.4 mg-minerals tablet Past Med/Surg History Medical History (Updated 09/11/21 @ 19:15 by WERNER Sanchez) C. difficile colitis CAD (coronary artery disease) Chronic anticoagulation CKD (chronic kidney disease) stage 3, GFR 30-59 ml/min Diverticular disease hx diverticulitis GERD (gastroesophageal reflux disease) History of DVT (deep vein thrombosis) a few years ago. remote h/o PE as well. on senior living anticoagulation HLD (hyperlipidemia) HTN (hypertension) Hypothyroidism Lumbar disc herniation with radiculopathy Lumbar radiculopathy NSVT (nonsustained ventricular tachycardia) Obstructive sleep apnea WEARS O2 AT 2L AT HS On home oxygen therapy 2L AT HS Paroxysmal SVT (supraventricular tachycardia) Rheumatoid arthritis RLS (restless legs syndrome) Severe aortic stenosis SVT (supraventricular tachycardia) Surgical History H/O colonoscopy H/O eye surgery LEFT History of carpal tunnel surgery RT/LEFT History of esophagogastroduodenoscopy (EGD) History of heart artery stent 03/18/2020-TYLER x 2 to LAD History of lumbar fusion History of tooth extraction History of total knee replacement RT/LEFT S/P CHANNING-BSO S/P TAVR (transcatheter aortic valve replacement) Family History Other Heart disease No family history of adverse response to anesthesia Rheumatoid arthritis Social History Smoking Status: Former smoker Tobacco Type: Cigarettes Second Hand Exposure: Yes (IN THE PAST); Do You Dip or Chew Tobacco: No; Hx Alcohol Use: No Hx Substance Use: No Preferred Language: Colombian Communication Ability: Effective 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 Da Silva's addendum for physical exam Results & Data Results & Data ([facility]) Vital Signs (Past 12 Hours) Vital Signs Temp Pulse Pulse Pulse Resp BP BP 09/11/21 18:00 37.8 C H 85 16 148/69 H 09/11/21 15:00 78 16 167/66 H 09/11/21 13:12 82 16 167/66 H 09/11/21 12:15 82 16 167/66 H 09/11/21 11:10 93 H 18 167/66 H 09/11/21 10:19 36.8 C 88 18 109/81 09/11/21 09:27 85 16 09/11/21 09:11 37.8 C H 85 16 109/81 Pulse Ox 09/11/21 18:00 93 09/11/21 15:00 97 09/11/21 13:12 97 09/11/21 12:15 95 09/11/21 11:10 97 09/11/21 10:19 97 09/11/21 09:27 95 09/11/21 09:11 95 Laboratory Results Short CBC 09/11/21 Range/Units 09:30 WBC 5.73 (4.8-10.8) K/uL Hgb 7.7 L (12.0-16.0) g/dL Hct 23.7 L (37-47) % Plt Count 85 L (130-400) K/uL BMP 09/11/21 09:30 Sodium 138 Potassium 3.9 Chloride 107 Carbon Dioxide 24 BUN 16 Creatinine 0.94 Glucose 110 H Calcium 8.4 L Liver Function 09/11/21 Range/Units 09:30 Total Bilirubin 1.2 H (0.2-1.0) mg/dl AST 29 (13-39) U/L ALT 19 (7-52) U/L Alkaline Phosphatase 76 (34-104) U/L Albumin 3.5 (3.4-5.0) gm/dl Urine 09/11/21 Range/Units 12:32 Urine Color Yellow Urine Appearance Clear (Clear) Urine pH 7.0 (4.5-7.5) Ur Specific [place] > 1.045 H (1.000-1.030) Urine Protein Negative (Negative) Urine Glucose (UA) Negative (Negative) Diagnostic Findings Chest X-Ray 09/11/21 09:18 SINGLE VIEW CHEST CLINICAL HISTORY: Generalized weakness. FINDINGS: An AP, portable, upright chest radiograph is compared to study dated . Correlation is made with chest CT dated 05/14/2021. There is evidence of previous cardiac valve surgery. The heart is enlarged noting atherosclerotic calcification of the thoracic aorta. The pulmonary vasculature is noncongested. Mild atelectasis is noted the lung bases. The lungs and pleural spaces are otherwise clear. No pneumothorax is seen. The skeletal structures are osteopenic. The bony thorax is grossly intact. Fusion hardware is partially visualized in the lumbar spine. IMPRESSION: Mild cardiomegaly with no acute cardiopulmonary abnormality. ACT 112: Negative or not required by law. Electronically signed by: Vitaliy Tate M.D. 09/11/2021 9:46 AM Knee X-Ray 09/11/21 09:18 LEFT KNEE 3 VIEWS CLINICAL HISTORY: Fall with left knee injury. FINDINGS: AP, crosstable lateral, and sunrise portable views of the left knee are compared to study dated 05/06/2021. The skeletal structures are osteopenic. No acute fracture is seen. A left knee arthroplasty is in near-anatomic alignment. No periprosthetic lucency is identified. There has been undersurface remodeling of the patella. There is a small joint effusion. Significant soft tissue edema is present around the knee, greatest anteriorly and medially. There is advanced atherosclerotic calcification of the popliteal artery. IMPRESSION: 1. Soft tissue edema with no radiographic evidence of acute fracture. 2. Small joint effusion. 3. A left knee arthroplasty is in near anatomic alignment. Electronically signed by: Vitaliy Tate M.D. 09/11/2021 9:47 AM Venous Doppler Study 09/11/21 09:18 ULTRASOUND LEFT LOWER EXTREMITY VENOUS CLINICAL HISTORY: Left leg pain. COMPARISON STUDY: Bilateral lower extremity venous ultrasound dated 02/06/2016. TECHNIQUE: Real-time, grayscale, and color Doppler sonography of the deep veins of the left lower extremity was performed from the inguinal crease to the calf. Compression and augmentation were utilized. FINDINGS: There is no sonographic evidence of deep venous thrombosis identified in the left lower extremity. The common femoral, superficial femoral, and popliteal veins are patent and normally compressible. The greater saphenous vein and the profunda femoris vein at the junction with the common femoral vein are clear. The visualized calf veins are patent. No organized fluid collection is seen in the thigh. IMPRESSION: There is no sonographic evidence of deep venous thrombosis identified in the left lower extremity. ACT 112: Negative or not required by law. Electronically signed by: Vitaliy Tate M.D. 09/11/2021 10:36 AM Abdomen/Pelvis CT 09/11/21 10:13 CT SCAN OF THE ABDOMEN AND PELVIS WITH IV CONTRAST CLINICAL HISTORY: Fall. Flank pain. COMPARISON STUDY: Abdominal CT dated 08/21/2021. TECHNIQUE: Following the IV administration of 94 cc of Optiray 320, CT scan of the abdomen and pelvis is performed from the lung bases to the proximal femora. Images are reviewed in the axial, sagittal, and coronal planes. IV contrast was administered without complication. A dose lowering technique was utilized adhering to the principles of ALARA. The examination is degraded by streak artifact from metallic spinal hardware. FINDINGS: Lung bases: There is evidence of previous aortic valve surgery. The heart is mildly enlarged and without pericardial effusion. A fat-containing Bochdalek hernia is noted at the right lung base. Fibrotic change at both lung bases is similar to previous. There is no airspace consolidation typical for pneumonia pleural effusion. Presumed round atelectasis at the left lung base is unchanged from prior studies. No basilar pneumothorax is seen. A small hiatal hernia is noted. Liver: The contrast-enhanced liver is normal in size, contour, and attenuation. There is no intrahepatic biliary ductal dilatation. The hepatic veins and portal veins are patent. Gallbladder: Unremarkable. Spleen: Normal in size and attenuation. There are calcified splenic granulomas. Pancreas: Moderately atrophic and grossly unremarkable. Adrenal glands: Unremarkable. Kidneys: The contrast enhanced kidneys demonstrate cortical atrophy and are without hydronephrosis. The kidneys enhance symmetrically. There are numerous bilateral nonobstructing renal calculi which measure up to 5 mm. Abdominal vasculature: The abdominal aorta is normal in course and caliber noting advanced atherosclerotic calcification. Bowel: There is mild colonic diverticulosis with no CT evidence of acute diverticulitis. No bowel obstruction is seen. The appendix is well-visualized and normal. Peritoneum: There is no intraperitoneal free air or abdominal ascites. Lymphadenopathy: None. Pelvic viscera: The bladder wall is circumferentially thickened with mild stranding infiltration. Intraluminal gas is noted. The uterus is surgically absent. No adnexal lesion is seen. Skeletal structures: The skeletal structures are osteopenic. There are 6 lumbar type vertebral bodies. There is advanced lumbosacral spondylosis with postoperative change from L4-S1 spinal fusion. There is a subacute burst type compression fracture of L3 (labeled L2 on prior examinations). Fracture involves both pedicles. There is also a subacute inferior endplate compression fracture of L2. No lytic or blastic lesions are seen. There is chronic posttraumatic deformity of the sacrum. IMPRESSION: 1. There is no evidence of solid organ injury in the abdomen or pelvis. 2. There is a subacute burst type compression fracture of L3 (previously labeled L2 as there are 6 lumbar type vertebral bodies) which involves both pedicles. 3. There is a subacute inferior endplate compression fracture of L2. 4. Bilateral nephrolithiasis. 5. Additional findings as above. ACT 112: Negative or not required by law. Electronically signed by: Vitaliy Tate M.D. 09/11/2021 11:[address] 09/11/21 10:13 CT OF THE CERVICAL SPINE WITHOUT CONTRAST CLINICAL HISTORY: fall COMPARISON STUDY: Cervical spine CT August 21, 2021. CTA of the neck September 03, 2021. TECHNIQUE: Helical axial images of the cervical spine were obtained without IV contrast. Sagittal and coronal reconstructions were viewed. Automated exposure control was utilized for the study. A dose lowering technique was utilized adhering to the principles of ALARA. FINDINGS: Alignment of the cervical spine is anatomic. Vertebral body heights are maintained. No acute cervical spine fracture or subluxation is present. There is no prevertebral edema. Facet joints are intact. Note is made of moderate multilevel degenerative changes within the cervical spine. The appearance of the cervical spine is unchanged since prior CT of August 21, 2021. IMPRESSION: No acute cervical spine fracture or subluxation. ACT 112: Negative or not required by law. Electronically signed by: Christian Lora M.D. 09/11/2021 11:[address] 09/11/21 10:13 CT chest diagnostic w con CLINICAL HISTORY: fall . Pain COMPARISON STUDY: 06/01/2021 CT DOSE: TECHNIQUE: Standard CT of the Chest was performed with IV contrast. A dose lowering technique was utilized adhering to the principles of ALARA. Contrast Volume: Optiray 320, 94 ml FINDINGS: Airway: The airway is clear. No endobronchial lesion is identified. Lungs: The lungs are clear of acute alveolar opacities, air bronchograms or pulmonary nodules. Minimal chronic pleural scarring is seen at the left lung base posterolaterally. Pleura: There is no evidence for pleural effusion. There is no evidence for p neumothorax. Mediastinum: There is no evidence for pathologic adenopathy. Heart is again mildly enlarged. There is again extensive coronary artery calcification and aortic valve replacement. The thoracic aorta is within normal limits. Atherosclerotic calcification is present. There is no evidence for pericardial effusion. Upper abdomen: The adrenal glands are normal bilaterally. Bilateral nono bstructing renal calculi are again seen. Osseous structures: There is no acute osseous pathology. Degenerative changes are present within the spine. IMPRESSION: 1. No acute chest disease. 2. Mild cardiomegaly with coronary artery calcification and aortic valve replacement is again seen. 3. Nonobstructing bilateral renal calculi are again seen. 4. Additional nonacute findings are delineated above. ACT 112: Negative or not required by law. Electronically signed by: Speedy Caicedo M.D. 09/11/2021 11:[address] 09/11/21 10:13 CT SCAN OF THE BRAIN WITHOUT IV CONTRAST CLINICAL HISTORY: Fall. COMPARISON STUDY: CT of the brain dated 09/03/2021. TECHNIQUE: Unenhanced axial CT scan of the brain is performed from the vertex to the skull base. A dose lowering technique was utilized adhering to the principles of ALARA. The skull base was scanned twice due to motion artifact. CT DOSE: 1480.62 mGy.cm FINDINGS: Brain parenchyma: There is age-related involutional change noting moderate subcortical and periventricular microangiopathic disease. There is no hemorrhage, mass effect, or evidence of acute territorial ischemia by CT criteria. Chamberlain-white matter differentiation is preserved. No extra-axial fluid collection is seen. Ventricles, sulci, cisterns: Prominent secondary to involutional change. Intracranial vasculature: There is atherosclerotic calcification of the cavernous carotid and vertebral arteries. Calvarium: The skeletal structures are osteopenic. No depressed calvarial fracture is identified. Sinuses and mastoids: The visualized paranasal sinuses are clear. There is a right mastoid effusion. The left mastoid air cells are well pneumatized. Orbits: The bony orbits are grossly intact. There are bilateral ocular lens implants. IMPRESSION: There is no hemorrhage, mass effect, or evidence of acute territorial ischemia by CT criteria. ACT 112: Negative or not required by law. Electronically signed by: Vitaliy Tate M.D. 09/11/2021 11:[address] 09/11/21 12:42 CT OF THE LUMBAR SPINE CLINICAL HISTORY: eval for L3 burst fracture COMPARISON STUDY: Lumbar spine CT October 15, 2020. MRI of the lumbar spine May 12, 2021. TECHNIQUE: Helical axial images of the lumbar spine were obtained. Sagittal and coronal reconstructions were viewed. Automated exposure control was utilized for the study. A dose lowering technique was utilized adhering to the principles of ALARA. FINDINGS: Please note that the abdomen and pelvis CT will be reported separately. 6 lumbar type vertebra are noted. For purposes of numbering on this exam, the L6-S1 disc space is assigned to axial image 264 of 337. When utilizing this numbering scheme, there is an L6-S1 discectomy with interbody spacer placement. Posterior decompression with bilateral screw fusion from L4 through S1 is noted. There is a mild compression fracture of the inferior endplate of L2 with 15% loss of vertebral body height. No extension into the posterior elements is noted. There is no retropulsion at this level. Note is made of a subacute burst type compression fracture of L3 with 3 mm of retropulsion at the level of the superior endplate. This results in mild central canal narrowing. There are also subacute fractures of the bilateral pedicles at the L3 level. No additional lumbar spine fractures are noted. There is an old healed S2 fracture. Multilevel disc space narrowing, osteophytosis and vacuum disc phenomenon is noted at multiple levels within the lower thoracic and lumbar spine. There is moderate facet arthrosis. Central canal and neural foramen are suboptimally assessed by CT. Bilateral renal calculi are noted. These are better depicted on the abdominal CT. IMPRESSION: 1. Subacute burst type compression fracture of L3 (please see above numbering scheme of the lumbar spine with 6 lumbar type vertebra) which involves both pedicles. Minimal retropulsion at the level of the superior endplate. 2. Mild subacute inferior endplate compression fracture of L2. 3. Postoperative findings within the lumbosacral spine, as described above. ACT 112: Negative or not required by law. Electronically signed by: Christian Lora M.D. 09/11/2021 1:16 PM Code Status & VTE Plan Code Status Patient is a DNR as per my discussion with patient's son, Martín, via telephone. VTE Prophylaxis Plan VTE Prophylaxis will be ordered: No Supervising Physician Co-Signing Physician Notes Patient seen and examined. Patient is a very poor historian. History obtained from ER physician. Patient had reportedly fallen at nursing facility few days ago and had left knee bruise and swelling which had increased necessitating presentation to the ER. On exam, General: Elderly woman in no acute distress Eyes: PERRL, conjunctivae normal, not pale, anicteric sclerae, EOM intact bilaterally ENMT: External ear and nose normal, oropharynx normal Respiratory: Normal respiratory effort, no respiratory distress, lungs clear to auscultation, no crackles and no wheezes Cardiovascular:RRR S1 S2 Chest (Breasts):Chest: Bruises over chest wall anteriorly Gastrointestinal (Abdomen): Abdomen is not distended, soft, non-tender to palpation, no guarding, no palpable hepatosplenomegaly, normal bowel sounds Musculoskeletal: Left knee swelling, tenderness. Ecchymoses over left thigh and leg Genitourinary: No CVA tenderness Neurologic: Alert and oriented to person, knows she is in a hospital but does not remember name, not oriented to time, cooperative Psychiatric: Euthymic affect Labs notable for hemoglobin of 7.7 [was 9.4 a week ago], MCV of 110, platelet of 85, INR of 3.9, bilirubin of 1.2, troponin at bedtime of 18.4 UA noted 5-10 WBC, positive urine nitrite Abdominal pelvic CT reported subacute burst type compression fracture of L3, subacute inferior endplate compression fracture of L2, bilateral nephrolithiasis Left knee x-ray shows noted soft tissue edema with no radiographic evidence of acute fracture, small joint effusion and left knee arthroplasty is in near anatomic alignment. CT head did not show any acute infarcts, hemorrhage Fall Left knee swelling. Cannot rule out hematoma Supratherapeutic INR Acute on chronic microcytic anemia Thrombocytopenia Hold warfarin and monitor INR Monitor hemoglobin. If dropping, reverse INR. Will hold Plavix for today. However, patient is high risk considering recent stroke and other comorbidities. So we will need to reassess resuming these medications as soon as possible Ortho consult to assess left knee Orthospine consult for fractures noted on lumbar CT and abdominal pelvic CT Started on ceftriaxone for possible UTI. Follow up urine culture Will need PT/OT eventually Agree with other plans as detailed by Ani CALDERA (1) Anemia Anemia type: unspecified type Qualified Code(s): D64.9 - Anemia, unspecified (2) HTN (hypertension) Hypertension type: essential hypertension Qualified Code(s): I10 - Essential (primary) hypertension (3) Fall Encounter type: initial encounter Qualified Code(s): W19.XXXA - Unspecified fall, initial encounter
[2021-09-11] MEDS: ACETAMINOPHEN 325 MG TAB PO SCH (19:33)
[2021-09-11] MEDS ORDERED: ACETAMINOPHEN 1000 MG/100 ML IV IV PRN (20:06)
[2021-09-11 20:12] LABS: Hematocrit (blood only) 21.3 % (37-47); Hemoglobin 6.9 g/dL (12.0-16.0)
[2021-09-11] MEDS: ONDANSETRON INJ 2 MG/ML 2 ML VIAL IV PRN (20:19)
[2021-09-11] MEDS ORDERED: PHYTONADIONE 5 MG in DEXTROSE 5% 50 ML IV ONE (20:30)
[2021-09-11] MEDS: traMADol HCL 50 MG TABLET PO SCH (20:49)
[2021-09-11] MEDS: FERROUS SULFATE 325 MG TAB PO SCH (20:50)
[2021-09-11] MEDS: METOPROLOL SUCC 50MG EXT REL TAB PO SCH (20:50)
[2021-09-11] MEDS: GABAPENTIN 100 MG CAP PO SCH (20:50)
[2021-09-11] MEDS ORDERED: ACETAMINOPHEN 325 MG TAB PO ONE (21:00)
[2021-09-11] MEDS: MoRPHine SULFATE 4 MG/ML 1 ML CARP\\VIAL IV PRN (21:48)
[2021-09-12] MEDS: ACETAMINOPHEN 325 MG TAB PO SCH ×4 (00:04→17:04)
[2021-09-12] MEDS: LEVOTHYROXINE SODIUM 50 MCG TABLET PO SCH (05:41)
[2021-09-12] MEDS: amLODIPine BESYLATE 5 MG TAB PO SCH (08:43)
[2021-09-12] MEDS: PANTOprazole 40 MG TAB PO SCH (08:43)
[2021-09-12] MEDS: FERROUS SULFATE 325 MG TAB PO SCH ×2 (08:43→21:53)
[2021-09-12] MEDS: predniSONE 5 MG TAB PO SCH (08:44)
[2021-09-12] MEDS: LEFLUNOMIDE 10 MG TAB PO SCH (08:44)
[2021-09-12] MEDS: CYANOCOBALAMIN (B-12) 500 MCG TABLET PO SCH (08:44)
[2021-09-12] MEDS: METOPROLOL SUCC 50MG EXT REL TAB PO SCH ×2 (08:44→21:53)
[2021-09-12] MEDS: ATORVASTATIN 40 MG TAB PO SCH (08:44)
[2021-09-12] MEDS: EZETIMIBE 10 MG TABLET PO SCH (08:44)
[2021-09-12] MEDS: FOLIC ACID 1 MG TAB PO SCH (08:44)
[2021-09-12] MEDS: SACCHAROMYCES BOULARDII 250 MG CAP PO SCH (08:44)
[2021-09-12] MEDS: GABAPENTIN 100 MG CAP PO SCH ×3 (08:44→21:53)
[2021-09-12] MEDS: traMADol HCL 50 MG TABLET PO SCH ×2 (08:47→21:53)
[2021-09-12] MEDS ORDERED: metHOTREXate sodium 2.5 MG TAB PO SCH (09:00)
[2021-09-12 09:28] LABS: INR 1.4 (0.9-1.1); Prothrombin Time 14.4 Seconds (9.0-12.0)
[2021-09-12 09:30] LABS: BUN Creatinine Ratio 21.3 (10-20); Calcium 7.9 mg/dl (8.5-10.1); Creatinine Clr Calc Pharmacy 45.8 ml/min; Est GFR (African American) 80.1 ml/min; Est GFR (Non-African American) 69.1 ml/min
[2021-09-12 09:45] LABS: Hematocrit (blood only) 31.6 % (37-47); Hemoglobin 10.8 g/dL (12.0-16.0); Mean Corpuscular Hemoglobin 33.2 pg (25-34); Mean Corpuscular Hgb Conc 34.2 g/dL (32-36); Mean Corpuscular Volume 97.2 fL (80-100); Mean Platelet Volume 9.9 fL (7.4-10.4); Platelet Count 52 K/uL (130-400); RDW Coefficient of Variation 22.2 % (11.5-14.5); RDW Standard Deviation 73.9 fL (36.4-46.3); Red Blood Count 3.25 M/uL (4.2-5.4); White Blood Count 4.86 K/uL (4.8-10.8)
[2021-09-12 09:47] LABS: Platelet Estimate Decreased (Normal)
--- NOTE | 2021-09-12 11:33 | Electrocardiogram Report ---
Test Reason : Blood Pressure : / mmHG Vent. Rate : 089 BPM Atrial Rate : 089 BPM P-R Int : 218 ms QRS Dur : 092 ms QT Int : 386 ms P-R-T Axes : 046 -44 058 degrees QTc Int : 469 ms Sinus rhythm with 1st degree A-V block Left axis deviation Moderate voltage criteria for LVH, may be normal variant Abnormal ECG When compared with ECG of 11-SEP-2021 11:20, (unconfirmed) No significant change was found Confirmed by Zackary Mandel ([id number]) on 09/12/2021 11:32:54 AM Referred By: [facility] Confirmed By:Jd Mandel
--- NOTE | 2021-09-12 11:33 | Electrocardiogram Report ---
Test Reason : Blood Pressure : / mmHG Vent. Rate : 092 BPM Atrial Rate : 092 BPM P-R Int : 214 ms QRS Dur : 092 ms QT Int : 382 ms P-R-T Axes : 052 -52 085 degrees QTc Int : 472 ms Poor data quality, interpretation may be adversely affected Sinus rhythm with 1st degree A-V block Left axis deviation Moderate voltage criteria for LVH, may be normal variant Nonspecific ST and T wave abnormality Prolonged QT Abnormal ECG When compared with ECG of 11-SEP-2021 09:27, No significant change was found Confirmed by Zackary Mandel ([id number]) on 09/12/2021 11:33:19 AM Referred By: [facility] Confirmed By:Jd Mandel
--- NOTE | 2021-09-12 13:21 | Orthopedic Consultation ---
Date of Consultation September 12, 2021 Assessment & Plan (1) Compression fracture: Compression fracture lumbar spine on CT appears to be old to subacute at best. She is asymptomatic. I would not address this with treatment at this time. History of Present Illness Reason for Consultation: Status post fall Attending Physician: Nick Novoa MD History of Present Illness This is a very pleasant 80-year-old female who had a fall recently and presents the emergency room with severe left leg pain and hematoma. Upon imaging it was determined she had a compression fracture lumbar spine. At this time she has no complaints of back pain. Is swelling her left knee that is troublesome to her. She denies any motor deficits or numbness and tingling to the extremities. Allergies Allergy/AdvReac Type Severity Reaction Status Date / Time baclofen Allergy Mild DIZZY Verified 09/11/21 10:24 Penicillins Allergy Mild RASH Verified 09/11/21 10:24 Sulfa (Sulfonamide Allergy Mild HEADACHE Verified 09/11/21 10:24 Antibiotics) Home Medications Medication Instructions Recorded Confirmed Type atorvastatin 40 mg tablet 40 mg PO QAM 07/01/18 09/11/21 History metoprolol succinate 50 mg 50 mg PO BID 07/01/18 09/11/21 History tablet,extended release 24 hr prednisone 5 mg tablet 5 mg PO QAM 07/01/18 09/11/21 History folic acid 1 mg tablet 2 mg PO QAM 10/17/19 09/11/21 History methotrexate sodium 2.5 mg tablet 10 mg PO FR 11/14/19 09/11/21 History clopidogrel 75 mg tablet 75 mg PO QAM 05/09/20 09/11/21 History amlodipine 5 mg tablet (Norvasc) 5 mg PO QAM #30 tab 05/10/20 09/11/21 Rx ezetimibe 10 mg tablet 10 mg PO QAM 04/21/21 09/11/21 History pantoprazole 40 mg tablet,delayed 40 mg PO QAM 04/21/21 09/11/21 History release warfarin 2.5 mg tablet See Rx Instructions .ROUTE .COMPLEX 05/04/21 09/11/21 History gabapentin 100 mg capsule 200 mg PO TID #0 cap 05/20/21 09/11/21 Rx ferrous sulfate 325 mg (65 mg 325 mg PO BID 08/21/21 09/11/21 History iron) tablet leflunomide 20 mg tablet 20 mg PO QAM 08/21/21 09/11/21 History ondansetron 4 mg disintegrating 4 mg TRANSLINGUAL DAILY PRN 08/21/21 09/11/21 History tablet tramadol 50 mg tablet 50 mg PO BID 08/21/21 09/11/21 History Saccharomyces boulardii 250 mg 250 mg PO QAM 09/03/21 09/11/21 History capsule (Florastor) cyanocobalamin (vitamin B-12) 500 500 mcg PO QAM 09/03/21 09/11/21 History mcg tablet (Vitamin B-12) levothyroxine 50 mcg tablet 50 mcg PO QAM 09/03/21 09/11/21 History multivit,tx with iron 27 1 tab PO QAM 09/03/21 09/11/21 History xe-jwtdhqm-xyvyz acid 0.4 mg-minerals tablet Patient History Medical History (Updated 09/11/21 @ 19:15 by WERNER Sanchez) C. difficile colitis CAD (coronary artery disease) Chronic anticoagulation CKD (chronic kidney disease) stage 3, GFR 30-59 ml/min Diverticular disease hx diverticulitis GERD (gastroesophageal reflux disease) History of DVT (deep vein thrombosis) a few years ago. remote h/o PE as well. on [facility]p anticoagulation HLD (hyperlipidemia) HTN (hypertension) Hypothyroidism Lumbar disc herniation with radiculopathy Lumbar radiculopathy NSVT (nonsustained ventricular tachycardia) Obstructive sleep apnea WEARS O2 AT 2L AT HS On home oxygen therapy 2L AT HS Paroxysmal SVT (supraventricular tachycardia) Rheumatoid arthritis RLS (restless legs syndrome) Severe aortic stenosis SVT (supraventricular tachycardia) Surgical History H/O colonoscopy H/O eye surgery LEFT History of carpal tunnel surgery RT/LEFT History of esophagogastroduodenoscopy (EGD) History of heart artery stent 03/18/2020-TYLER x 2 to LAD History of lumbar fusion History of tooth extraction History of total knee replacement RT/LEFT S/P CHANNING-BSO S/P TAVR (transcatheter aortic valve replacement) Family History Other Heart disease No family history of adverse response to anesthesia Rheumatoid arthritis Social History Smoking Status: Former smoker Tobacco Type: Cigarettes Second Hand Exposure: Yes (IN THE PAST); Do You Dip or Chew Tobacco: No; Hx Alcohol Use: No Hx Substance Use: No Preferred Language: Ukrainian Communication Ability: Effective 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 She has marked swelling to the left knee with ecchymosis. She has full sensation to cold and light touch. She is obviously uncomfortable with any range of motion. She has no back pain to palpation. Results & Data ([facility]) Vital Signs (Past 12 Hours) Vital Signs Temp Pulse Resp BP Pulse Ox 09/12/21 07:25 36.8 C 70 18 148/75 H 98 09/12/21 06:38 36.8 C 63 18 133/71 97 09/12/21 05:40 36.8 C 75 16 164/69 H 96 09/12/21 05:10 36.8 C 76 16 157/68 H 95 09/12/21 04:40 36.8 C 73 16 147/81 H 94 09/12/21 04:25 36.8 C 75 16 155/71 H 97 09/12/21 04:07 36.8 C 74 16 141/60 H 97 09/12/21 02:24 36.8 C 74 16 143/65 H 97 09/12/21 01:45 37 C 72 16 143/67 H 96
--- NOTE | 2021-09-12 14:34 | Orthopedic Consultation ---
Date of Consultation September 12, 2021 Assessment & Plan (1) Leg hematoma: Left leg hematoma medial aspect. Will continue to hold anticoagulation at this time. Ice to the left knee. Elevation to left lower extremity. Since this happened several days ago, aspiration of the hematoma likely would be fruitless endeavor but certainly could be attempted. If patient is having difficulty with ambulation, evacuation of the hematoma might be warranted. I will discuss the case with Dr. Aldana who will see the patient later this afternoon for final decision for treatment. History of Present Illness Reason for Consultation: Left knee medial hematoma Attending Physician: Nick Novoa MD History of Present Illness Patient is an 80-year-old female with PMH, HLD, INA, history of SVT, CAD s/p TYLER to LAD x 2, pulmonary embolism anticoagulated on Coumadin, aortic stenosis, CKD stage III, rheumatoid arthritis on chronic prednisone, dementia, and other problems listed below who presents to the ED for evaluation of fall and left knee pain. Patient is currently awake in her room and answers some questions appropriately. She apparently had a fall several days ago. She cannot remember which day. Over time she developed bruising and increased swelling over the medial aspect of the left knee. This continued to increase and became quite painful. Patient has been on Coumadin and Plavix and her noted INR was 3.9 when she came into the emergency room. She apparently had a retinal artery occlusion later in the month. She was also found to have a compression fracture and was having difficulty ambulating. She was thusly admitted. We have been asked to see her for her hematoma of the left knee. Allergies Allergy/AdvReac Type Severity Reaction Status Date / Time baclofen Allergy Mild DIZZY Verified 09/11/21 10:24 Penicillins Allergy Mild RASH Verified 09/11/21 10:24 Sulfa (Sulfonamide Allergy Mild HEADACHE Verified 09/11/21 10:24 Antibiotics) Home Medications Medication Instructions Recorded Confirmed Type atorvastatin 40 mg tablet 40 mg PO QAM 07/01/18 09/11/21 History metoprolol succinate 50 mg 50 mg PO BID 07/01/18 09/11/21 History tablet,extended release 24 hr prednisone 5 mg tablet 5 mg PO QAM 07/01/18 09/11/21 History folic acid 1 mg tablet 2 mg PO QAM 10/17/19 09/11/21 History methotrexate sodium 2.5 mg tablet 10 mg PO FR 11/14/19 09/11/21 History clopidogrel 75 mg tablet 75 mg PO QAM 05/09/20 09/11/21 History amlodipine 5 mg tablet (Norvasc) 5 mg PO QAM #30 tab 05/10/20 09/11/21 Rx ezetimibe 10 mg tablet 10 mg PO QAM 04/21/21 09/11/21 History pantoprazole 40 mg tablet,delayed 40 mg PO QAM 04/21/21 09/11/21 History release warfarin 2.5 mg tablet See Rx Instructions .ROUTE .COMPLEX 05/04/21 09/11/21 History gabapentin 100 mg capsule 200 mg PO TID #0 cap 05/20/21 09/11/21 Rx ferrous sulfate 325 mg (65 mg 325 mg PO BID 08/21/21 09/11/21 History iron) tablet leflunomide 20 mg tablet 20 mg PO QAM 08/21/21 09/11/21 History ondansetron 4 mg disintegrating 4 mg TRANSLINGUAL DAILY PRN 08/21/21 09/11/21 History tablet tramadol 50 mg tablet 50 mg PO BID 08/21/21 09/11/21 History Saccharomyces boulardii 250 mg 250 mg PO QAM 09/03/21 09/11/21 History capsule (Florastor) cyanocobalamin (vitamin B-12) 500 500 mcg PO QAM 09/03/21 09/11/21 History mcg tablet (Vitamin B-12) levothyroxine 50 mcg tablet 50 mcg PO QAM 09/03/21 09/11/21 History multivit,tx with iron 27 1 tab PO QAM 09/03/21 09/11/21 History lt-ehaunbx-frxgj acid 0.4 mg-minerals tablet Patient History Medical History C. difficile colitis CAD (coronary artery disease) Chronic anticoagulation CKD (chronic kidney disease) stage 3, GFR 30-59 ml/min Diverticular disease hx diverticulitis GERD (gastroesophageal reflux disease) History of DVT (deep vein thrombosis) a few years ago. remote h/o PE as well. on [facility] anticoagulation HLD (hyperlipidemia) HTN (hypertension) Hypothyroidism Lumbar disc herniation with radiculopathy Lumbar radiculopathy NSVT (nonsustained ventricular tachycardia) Obstructive sleep apnea WEARS O2 AT 2L AT HS On home oxygen therapy 2L AT HS Paroxysmal SVT (supraventricular tachycardia) Rheumatoid arthritis RLS (restless legs syndrome) Severe aortic stenosis SVT (supraventricular tachycardia) Surgical History H/O colonoscopy H/O eye surgery LEFT History of carpal tunnel surgery RT/LEFT History of esophagogastroduodenoscopy (EGD) History of heart artery stent 03/18/2020-TYLER x 2 to LAD History of lumbar fusion History of tooth extraction History of total knee replacement RT/LEFT S/P CHANNING-BSO S/P TAVR (transcatheter aortic valve replacement) Family History Other Heart disease No family history of adverse response to anesthesia Rheumatoid arthritis Social History Smoking Status: Former smoker Tobacco Type: Cigarettes Second Hand Exposure: Yes (IN THE PAST); Do You Dip or Chew Tobacco: No; Hx Alcohol Use: No Hx Substance Use: No Preferred Language: Wolof Communication Ability: Effective 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 Pleasant and cooperative. No acute distress. On examination of her left knee, she has a well-healed incision on the midline of the knee from previous TKA. She has a very large hematoma over the medial aspect of the left knee. This is somewhat tense on palpation and very tender. She has noted ecchymosis that is traveling medially and posteriorly as well as superiorly up to the thigh. She is able to fully extend her knee at this time. Flexion is limited to about 45 degrees secondary to increased pain as she increases her flexion. Axial loading does not appear to bother the hematoma at this time. She denies pain in the left hip or ankle. There is no gross motor or sensory loss seen at this time. Results & Data ([facility]) Vital Signs (Past 12 Hours) Vital Signs Temp Pulse Resp BP Pulse Ox 09/12/21 07:25 36.8 C 70 18 148/75 H 98 09/12/21 06:38 36.8 C 63 18 133/71 97 09/12/21 05:40 36.8 C 75 16 164/69 H 96 09/12/21 05:10 36.8 C 76 16 157/68 H 95 09/12/21 04:40 36.8 C 73 16 147/81 H 94 09/12/21 04:25 36.8 C 75 16 155/71 H 97 09/12/21 04:07 36.8 C 74 16 141/60 H 97 Laboratory Results Laboratory Results WBC 4.86 K/uL (4.8-10.8) 09/12/21 08:50 RBC 3.25 M/uL (4.2-5.4) L 09/12/21 08:50 Hgb 10.8 g/dL (12.0-16.0) L D 09/12/21 08:50 Hct 31.6 % (37-47) L 09/12/21 08:50 MCV 97.2 fL (80-100) D 09/12/21 08:50 MCH 33.2 pg (25-34) 09/12/21 08:50 MCHC 34.2 g/dL (32-36) 09/12/21 08:50 RDW Std Deviation 73.9 fL (36.4-46.3) H 09/12/21 08:50 RDW Coeff of Keila 22.2 % (11.5-14.5) H 09/12/21 08:50 Plt Count 52 K/uL (130-400) L 09/12/21 08:50 MPV 9.9 fL (7.4-10.4) 09/12/21 08:50 Immature Gran % (Auto) 0.5 % 09/11/21 09:30 Neut % (Auto) 73.0 % 09/11/21 09:30 Lymph % (Auto) 11.5 % 09/11/21 09:30 [place] % (Auto) 11.9 % 09/11/21 09:30 Eos % (Auto) 2.6 % 09/11/21 09:30 Baso % (Auto) 0.5 % 09/11/21 09:30 Neut # (Auto) 4.18 K/uL (1.4-6.5) 09/11/21 09:30 Lymph # (Auto) 0.66 K/uL (1.2-3.4) L 09/11/21 09:30 [place] # (Auto) 0.68 K/uL (0.11-0.59) H 09/11/21 09:30 Eos # (Auto) 0.15 K/uL (0-0.5) 09/11/21 09:30 Baso # (Auto) 0.03 K/uL (0-0.2) 09/11/21 09:30 Immature Gran # (Auto) 0.03 K/uL (0.00-0.02) H 09/11/21 09:30 Absolute Nucleated RBC 0.03 K/uL (0-0) H 09/11/21 09:30 Nucleated RBC % (auto) 0.5 % 09/11/21 09:30 Hypersegmented Neuts 1+ 09/11/21 09:30 Platelet Estimate Decreased (Normal) L 09/12/21 08:50 Ovalocytes 1+ 09/11/21 09:30 PT 14.4 Seconds (9.0-12.0) H 09/12/21 08:50 INR 1.4 (0.9-1.1) H 09/12/21 08:50 APTT 45.0 Seconds (21.0-31.0) H 09/11/21 09:30 PTT Ratio 1.6 09/11/21 09:30 Sodium 137 mmol/L (136-145) 09/12/21 08:50 Potassium 4.0 mmol/L (3.5-5.1) 09/12/21 08:50 Chloride 109 mmol/L (98-107) H 09/12/21 08:50 Carbon Dioxide 23 mmol/L (21-32) 09/12/21 08:50 Anion Gap 5 (3-11) 09/12/21 08:50 BUN 17 mg/dl (6-23) 09/12/21 08:50 Creatinine 0.80 mg/dl (0.6-1.2) 09/12/21 08:50 Est Cr Clr Drug Dosing 45.8 ml/min 09/12/21 08:50 Est GFR ( Amer) 80.1 ml/min 09/12/21 08:50 Est GFR (Non-Af Amer) 69.1 ml/min 09/12/21 08:50 BUN/Creatinine Ratio 21.3 (10-20) H 09/12/21 08:50 Glucose 85 mg/dl (70-99(Fasting)) 09/12/21 08:50 Calcium 7.9 mg/dl (8.5-10.1) L 09/12/21 08:50 Total Bilirubin 1.2 mg/dl (0.2-1.0) H 09/11/21 09:30 AST 29 U/L (13-39) 09/11/21 09:30 ALT 19 U/L (7-52) 09/11/21 09:30 Alkaline Phosphatase 76 U/L (34-104) 09/11/21 09:30 Troponin I High Sens 18.4 pg/ml (0-14) H D 09/11/21 09:30 Total Protein 5.8 gm/dl (6.0-8.3) L 09/11/21 09:30 Albumin 3.5 gm/dl (3.4-5.0) 09/11/21 09:30 Globulin 2.3 gm/dl (2.5-4.0) L 09/11/21 09:30 Albumin/Globulin Ratio 1.5 (0.9-2) 09/11/21 09:30 TSH 3.866 uIu/ml (0.300-4.500) 09/11/21 09:30 Urine Color Yellow 09/11/21 12:32 Urine Appearance Clear (Clear) 09/11/21 12:32 Urine pH 7.0 (4.5-7.5) 09/11/21 12:32 Ur Specific Mason > 1.045 (1.000-1.030) H 09/11/21 12:32 Urine Protein Negative (Negative) 09/11/21 12:32 Urine Glucose (UA) Negative (Negative) 09/11/21 12:32 Urine Ketones Negative (Negative) 09/11/21 12:32 Urine Blood Negative (Negative) 09/11/21 12:32 Urine Nitrite Positive (Negative) A 09/11/21 12:32 Urine Bilirubin Negative (Negative) 09/11/21 12:32 Urine Urobilinogen Negative (Negative) 09/11/21 12:32 Ur Leukocyte Esterase Negative (Negative) 09/11/21 12:32 Urine WBC (Auto) 5-10 /hpf (0-5) H 09/11/21 12:32 Urine RBC (Auto) 0-4 /hpf (0-4) 09/11/21 12:32 U Hyaline Cast (Auto) 1-5 /lpf (0-5) 09/11/21 12:32 U Epithel Cells (Auto) 10-20 /lpf (0-5) H 09/11/21 12:32 Urine Bacteria (Auto) 4+ (Negative) H 09/11/21 12:32 SARS-CoV-2, RNA, NAAT NEGATIVE (NEGATIVE) 09/11/21 09:36 Blood Type A Positive 09/11/21 10:33 Antibody Screen NEGATIVE 09/11/21 10:33 Crossmatch See Detail 09/11/21 10:33 Impressions Chest X-Ray 09/11/21 09:18 SINGLE VIEW CHEST CLINICAL HISTORY: Generalized weakness. FINDINGS: An AP, portable, upright chest radiograph is compared to study dated . Correlation is made with chest CT dated 05/14/2021. There is evidence of previous cardiac valve surgery. The heart is enlarged noting atherosclerotic calcification of the thoracic aorta. The pulmonary vasculature is noncongested. Mild atelectasis is noted the lung bases. The lungs and pleural spaces are otherwise clear. No pneumothorax is seen. The skeletal structures are osteopenic. The bony thorax is grossly intact. Fusion hardware is partially visualized in the lumbar spine. IMPRESSION: Mild cardiomegaly with no acute cardiopulmonary abnormality. ACT 112: Negative or not required by law. Electronically signed by: Vitaliy Tate M.D. 09/11/2021 9:46 AM Knee X-Ray 09/11/21 09:18 LEFT KNEE 3 VIEWS CLINICAL HISTORY: Fall with left knee injury. FINDINGS: AP, crosstable lateral, and sunrise portable views of the left knee are compared to study dated 05/06/2021. The skeletal structures are osteopenic. No acute fracture is seen. A left knee arthroplasty is in near-anatomic alignment. No periprosthetic lucency is identified. There has been undersurface remodeling of the patella. There is a small joint effusion. Significant soft tissue edema is present around the knee, greatest anteriorly and medially. There is advanced atherosclerotic calcification of the popliteal artery. IMPRESSION: 1. Soft tissue edema with no radiographic evidence of acute fracture. 2. Small joint effusion. 3. A left knee arthroplasty is in near anatomic alignment. Electronically signed by: Vitaliy Tate M.D. 09/11/2021 9:47 AM Venous Doppler Study 09/11/21 09:18 ULTRASOUND LEFT LOWER EXTREMITY VENOUS CLINICAL HISTORY: Left leg pain. COMPARISON STUDY: Bilateral lower extremity venous ultrasound dated 02/06/2016. TECHNIQUE: Real-time, grayscale, and color Doppler sonography of the deep veins of the left lower extremity was performed from the inguinal crease to the calf. Compression and augmentation were utilized. FINDINGS: There is no sonographic evidence of deep venous thrombosis identified in the left lower extremity. The common femoral, superficial femoral, and popliteal veins are patent and normally compressible. The greater saphenous vein and the profunda femoris vein at the junction with the common femoral vein are clear. The visualized calf veins are patent. No organized fluid collection is seen in the thigh. IMPRESSION: There is no sonographic evidence of deep venous thrombosis identified in the left lower extremity. Lumbar Spine CT 09/11/21 12:42 CT OF THE LUMBAR SPINE CLINICAL HISTORY: eval for L3 burst fracture COMPARISON STUDY: Lumbar spine CT October 15, 2020. MRI of the lumbar spine May 12, 2021. TECHNIQUE: Helical axial images of the lumbar spine were obtained. Sagittal and coronal reconstructions were viewed. Automated exposure control was utilized for the study. A dose lowering technique was utilized adhering to the principles of ALARA. FINDINGS: Please note that the abdomen and pelvis CT will be reported separately. 6 lumbar type vertebra are noted. For purposes of numbering on this exam, the L6-S1 disc space is assigned to axial image 264 of [id number]. When utilizing this numbering scheme, there is an L6-S1 discectomy with interbody spacer placement. Posterior decompression with bilateral screw fusion from L4 through S1 is noted. There is a mild compression fracture of the inferior endplate of L2 with 15% loss of vertebral body height. No extension into the posterior elements is noted. There is no retropulsion at this level. Note is made of a subacute burst type compression fracture of L3 with 3 mm of retropulsion at the level of the superior endplate. This results in mild central canal narrowing. There are also subacute fractures of the bilateral pedicles at the L3 level. No additional lumbar spine fractures are noted. There is an old healed S2 fracture. Multilevel disc space narrowing, osteophytosis and vacuum disc phenomenon is noted at multiple levels within the lower thoracic and lumbar spine. There is moderate facet arthrosis. Central canal and neural foramen are suboptimally assessed by CT. Bilateral renal calculi are noted. These are better depicted on the abdominal CT. IMPRESSION: 1. Subacute burst type compression fracture of L3 (please see above numbering scheme of the lumbar spine with 6 lumbar type vertebra) which involves both pedicles. Minimal retropulsion at the level of the superior endplate. 2. Mild subacute inferior endplate compression fracture of L2. 3. Postoperative findings within the lumbosacral spine, as described above. ACT 112: Negative or not required by law. Electronically signed by: Christian Lora M.D. 09/11/2021 1:16 PM
[2021-09-12] MEDS: cefTRIAXone SODIUM 1,000 MG in DEXTROSE 5% 50 ML IV SCH (16:01)
--- NOTE | 2021-09-12 19:53 | Hospitalist Progress Note ---
Date of Service September 12, 2021 Assessment & Plan (1) Fall: (2) Leg hematoma: Plan: Patient presenting from [facility] for evaluation after fall and subsequent left knee pain, swelling, bruising In the ED, left knee XR negative for fracture On exam, patient is found to have significant hematoma On Coumadin, INR 3.9->reversed with Vit K and INR 1.4 Holding Plavix and Coumadin with hematoma and Hb drop requiring blood transfusion- resume when indicated Seen by ortho- may need hematoma evacuation if difficulty with ambulation (3) Anemia: Plan: Baseline Hb ~ 10- >7.7->6.9->10.8 s/p 2 U PRBC Monitor H&H, transfuse as needed (4) Compression fracture: Plan: CT lumbar spine shows Subacute burst type compression fracture of L3 which involves both pedicles. Minimal retropulsion at the level of the superior endplate. Mild subacute inferior endplate compression fracture of L2. Seen by Dr Gonzalez- hari, asymptomatic and no intervention currently (5) Abnormal urinalysis: Plan: urine clx with GNB- on rocephin pending culture results (6) Thrombocytopenia: Plan: platelets 85K->52K. Monitor (7) Retinal artery branch occlusion of right eye: Plan: Diagnosed on 09/03/2021 Continue statin Resume Plavix and warfarin as soon as possible (8) Paroxysmal SVT (supraventricular tachycardia): Plan: History of, continue metoprolol (9) History of DVT (deep vein thrombosis): Plan: Holding Coumadin as above (10) CAD (coronary artery disease): Plan: Appears stable, no reports of chest pain Continue statin, Zetia, and beta-danielito Holding Plavix as above (11) HTN (hypertension): Plan: BP controlled, continue amlodipine and metoprolol (12) Hypothyroidism: Plan: Continue levothyroxine (13) DVT prophylaxis: Plan: SCDs RLE Admission and Anticipated Discharge Date Admission Date: September 11, 2021 Subjective Complains of severe pain in left knee with any movements, otherwise feels okay at rest. She does not remember how the fall happened. States her vision has not changed. No fever, chills, chest pain, shortness of breath. Physical Exam Physical Exam: General: Sitting comfortably in bed, not in distress, on room air HEENT: EOMI, MELECIO, MMM. Decreased vision right eye since recent retinal artery occlusion Chest: Clear breath sounds bilaterally, no wheezes or crackles CVS: Regular rate and rhythm, normal heart sounds, no murmur Abdomen: Soft, non tender, not distended, normal bowel sounds Neuro: Awake, alert, oriented, conversing well, non focal Extremities: Left knee and thigh hematoma/ecchymoses, left buttock ecchymoses. ROM limited due to pain. Results & Data Results & Data ([facility]) Vital Signs (Past 12 Hours) Vital Signs Temp Pulse Resp BP Pulse Ox 09/12/21 14:58 36.9 C 76 16 130/69 96 Laboratory Results Short CBC 09/11/21 09/12/21 Range/Units 19:00 08:50 WBC 4.86 (4.8-10.8) K/uL Hgb 6.9 L* 10.8 L D (12.0-16.0) g/dL Hct 21.3 L 31.6 L (37-47) % Plt Count 52 L (130-400) K/uL BMP 09/12/21 08:50 Sodium 137 Potassium 4.0 Chloride 109 H Carbon Dioxide 23 BUN 17 Creatinine 0.80 Glucose 85 Calcium 7.9 L Medications Administered Current Inpatient Medications Acetaminophen (Acetaminophen 325 Mg Tab) 650 mg PO Q6H [facility] Stop: 10/11/21 17:59 Last Admin: 09/12/21 17:04 Dose: 650 mg Documented by: Acetaminophen (Acetaminophen 1000 Mg/100 Ml Iv) 1,000 mg IV TID PRN PRN Reason: Pain or Fever Stop: 09/14/21 20:05 Amlodipine Besylate (Amlodipine Besylate 5 Mg Tab) [facility] [place] Stop: 10/12/21 08:59 Last Admin: 09/12/21 08:43 Dose: 5 mg Documented by: Atorvastatin Calcium (Atorvastatin 40 Mg Tab) 40 mg PO QAM [facility] Stop: 10/12/21 08:59 Last Admin: 09/12/21 08:44 Dose: 40 mg Documented by: Cyanocobalamin (Cyanocobalamin (B-12) 500 Mcg Tablet) 500 mcg PO QAM [facility] Stop: 10/12/21 08:59 Last Admin: 09/12/21 08:44 Dose: 500 mcg Documented by: Ezetimibe (Ezetimibe 10 Mg Tablet) 10 mg PO QAM [facility] Stop: 10/12/21 08:59 Last Admin: 09/12/21 08:44 Dose: 10 mg Documented by: Ferrous Sulfate (Ferrous Sulfate 325 Mg Tab) 325 mg PO BID [facility] Stop: 10/11/21 20:59 Last Admin: 09/12/21 08:43 Dose: 325 mg Documented by: Folic Acid (Folic Acid 1 Mg Tab) 2 mg PO QAM [facility] Stop: 10/12/21 08:59 Last Admin: 09/12/21 08:44 Dose: 2 mg Documented by: Gabapentin (Gabapentin 100 Mg Cap) 200 mg PO TID [facility] Stop: 10/11/21 20:59 Last Admin: 09/12/21 14:12 Dose: 200 mg Documented by: Ceftriaxone Sodium 1,000 mg/ (Dextrose) 60 mls @ 100 mls/hr IV DAILY [facility]; Protocol Stop: 09/16/21 15:59 Last Infusion: 09/12/21 16:32 Dose: Infused Documented by: Leflunomide (Leflunomide 10 Mg Tab) 20 mg PO QAM [facility] Stop: 10/12/21 08:59 Last Admin: 09/12/21 08:44 Dose: 20 mg Documented by: Levothyroxine Sodium (Levothyroxine Sodium 50 Mcg Tablet) 50 mcg PO DAILYBB [facility] Stop: 10/12/21 06:29 Last Admin: 09/12/21 05:41 Dose: 50 mcg Documented by: Methotrexate (Methotrexate Sodium 2.5 Mg Tab) 10 mg PO Fr@0900 [facility] Stop: 10/12/21 08:59 Last Admin: 09/12/21 08:45 Dose: 10 mg Documented by: Metoprolol Succinate (Metoprolol Succ 50mg Ext Rel Tab) 50 mg PO BID [facility] Stop: 10/11/21 20:59 Last Admin: 09/12/21 08:44 Dose: 50 mg Documented by: Morphine Sulfate (Morphine Sulfate 4 Mg/Ml 1 Ml Carp\Vial) 3 mg IV Q6H PRN PRN Reason: severe pain Stop: 09/25/21 20:49 Last Admin: 09/11/21 21:48 Dose: 3 mg Documented by: Ondansetron HCl (Ondansetron Inj 2 Mg/Ml 2 Ml Vial) 4 mg IV Q6H PRN PRN Reason: Nausea And Vomiting Stop: 10/11/21 20:05 Last Admin: 09/11/21 20:19 Dose: 4 mg Documented by: Pantoprazole Sodium (Pantoprazole 40 Mg Tab) 40 mg PO QAM [facility] Stop: 10/12/21 08:59 Last Admin: 09/12/21 08:43 Dose: 40 mg Documented by: Prednisone (Prednisone 5 Mg Tab) 5 mg PO QAM [facility] Stop: 10/12/21 08:59 Last Admin: 09/12/21 08:44 Dose: 5 mg Documented by: Saccharomyces Boulardii (Saccharomyces Boulardii 250 Mg Cap) 250 mg PO QAM [facility] Stop: 10/12/21 08:59 Last Admin: 09/12/21 08:44 Dose: 250 mg Documented by: Tramadol HCl (Tramadol Hcl 50 Mg Tablet) 50 mg PO BID [facility] Stop: 10/11/21 20:59 Last Admin: 09/12/21 08:47 Dose: 50 mg Documented by: (1) Fall Encounter type: initial encounter Qualified Code(s): W19.XXXA - Unspecified fall, initial encounter (2) Anemia Anemia type: unspecified type Qualified Code(s): D64.9 - Anemia, unspecified (3) HTN (hypertension) Hypertension type: essential hypertension Qualified Code(s): I10 - Essential (primary) hypertension
[2021-09-13] MEDS: ACETAMINOPHEN 325 MG TAB PO SCH ×5 (00:09→23:34)
[2021-09-13] MEDS: LEVOTHYROXINE SODIUM 50 MCG TABLET PO SCH (05:53)
[2021-09-13 06:34] LABS: Hematocrit (blood only) 33.4 % (37-47); Hemoglobin 11.3 g/dL (12.0-16.0); Mean Corpuscular Hemoglobin 32.7 pg (25-34); Mean Corpuscular Hgb Conc 33.8 g/dL (32-36); Mean Corpuscular Volume 96.5 fL (80-100); RDW Coefficient of Variation 22.5 % (11.5-14.5); RDW Standard Deviation 74.5 fL (36.4-46.3); Red Blood Count 3.46 M/uL (4.2-5.4); White Blood Count 3.82 K/uL (4.8-10.8)
[2021-09-13 06:38] LABS: Mean Platelet Volume 10.8 fL (7.4-10.4); Platelet Count 67 K/uL (130-400)
[2021-09-13 07:08] LABS: BUN Creatinine Ratio 20.6 (10-20); Calcium 7.9 mg/dl (8.5-10.1); Creatinine Clr Calc Pharmacy 53.9 ml/min; Est GFR (African American) 95.1 ml/min; Potassium 3.7 mmol/L (3.5-5.1)
--- NOTE | 2021-09-13 10:15 | Orthopedic Progress Note ---
Date of Service September 13, 2021 Assessment & Plan (1) Leg hematoma: Plan: Left leg hematoma medial aspect. Continue to use ice packs on the left knee. I discussed the case yesterday with Dr. Aldana. We will let the patient eat today and reassess for tomorrow. Possi ble evacuation of hematoma in the OR tomorrow. Dr. Aldana will see the patient later today as well for recheck. Admission and Anticipated Discharge Date Admission Date: September 11, 2021 Subjective Patient sleeping upon arrival. Easily awoken. No new complaints. Physical Exam Physical Exam: Her knee swelling to me appears improved. She does not appear to have the size or the tenseness of the skin around the hematoma that she had yesterday. Continues with her ecchymosis and continues with the hematoma over the medial aspect of the knee. She is very painful on light touch of this area. Results & Data ([facility]) Vital Signs (Past 12 Hours) Vital Signs Temp Pulse Resp BP Pulse Ox 09/13/21 08:16 37.4 C 80 18 137/82 91
[2021-09-13] MEDS: ONDANSETRON INJ 2 MG/ML 2 ML VIAL IV PRN (11:19)
[2021-09-13] MEDS: cefTRIAXone SODIUM 1,000 MG in DEXTROSE 5% 50 ML IV SCH (12:34)
[2021-09-13] MEDS: CYANOCOBALAMIN (B-12) 500 MCG TABLET PO SCH (12:45)
[2021-09-13] MEDS: METOPROLOL SUCC 50MG EXT REL TAB PO SCH ×2 (12:45→20:02)
[2021-09-13] MEDS: FERROUS SULFATE 325 MG TAB PO SCH ×2 (12:45→20:02)
[2021-09-13] MEDS: amLODIPine BESYLATE 5 MG TAB PO SCH (12:45)
[2021-09-13] MEDS: SACCHAROMYCES BOULARDII 250 MG CAP PO SCH (13:20)
[2021-09-13] MEDS: PANTOprazole 40 MG TAB PO SCH (13:20)
[2021-09-13] MEDS: LEFLUNOMIDE 10 MG TAB PO SCH (13:20)
[2021-09-13] MEDS: predniSONE 5 MG TAB PO SCH (13:22)
[2021-09-13] MEDS: GABAPENTIN 100 MG CAP PO SCH ×3 (16:19→23:34)
[2021-09-13] MEDS: EZETIMIBE 10 MG TABLET PO SCH (16:20)
[2021-09-13] MEDS: ATORVASTATIN 40 MG TAB PO SCH (16:20)
[2021-09-13] MEDS: FOLIC ACID 1 MG TAB PO SCH (16:20)
--- NOTE | 2021-09-13 16:44 | Anesthesiology Consultation ---
Date of Service September 13, 2021 Assessment & Plan (1) Encounter for pre-operative examination: History Surgery Operation Date: 09/14/21 09:30 Proposed Procedures p Left Knee Evacuation, possible poly exchange(Left) - Fab Aldana DO Height/Weight Height: 5 ft 1 in Weight: 59.8 kg Allergies Allergy/AdvReac Type Severity Reaction Status Date / Time baclofen Allergy Mild DIZZY Verified 09/11/21 10:24 Penicillins Allergy Mild RASH Verified 09/11/21 10:24 Sulfa (Sulfonamide Allergy Mild HEADACHE Verified 09/11/21 10:24 Antibiotics) Medications Home Medications Medication Instructions Recorded Confirmed Last Taken atorvastatin 40 mg tablet 40 mg PO QAM 07/01/18 09/11/21 09/03/21 08:00 metoprolol succinate 50 mg 50 mg PO BID 07/01/18 09/11/21 09/03/21 08:00 tablet,extended release 24 hr prednisone 5 mg tablet 5 mg PO QAM 07/01/18 09/11/21 09/03/21 08:00 folic acid 1 mg tablet 2 mg PO QAM 10/17/19 09/11/21 09/03/21 08:00 methotrexate sodium 2.5 mg tablet 10 mg PO FR 11/14/19 09/11/21 08/29/21 08:00 clopidogrel 75 mg tablet 75 mg PO QAM 05/09/20 09/11/21 09/03/21 08:00 amlodipine 5 mg tablet (Norvasc) 5 mg PO QAM #30 tab 05/10/20 09/11/21 09/03/21 08:00 ezetimibe 10 mg tablet 10 mg PO QAM 04/21/21 09/11/21 09/03/21 08:00 pantoprazole 40 mg tablet,delayed 40 mg PO QAM 04/21/21 09/11/21 09/03/21 07:30 release warfarin 2.5 mg tablet See Rx Instructions .ROUTE .COMPLEX 05/04/21 09/11/21 09/02/21 17:00 gabapentin 100 mg capsule 200 mg PO TID #0 cap 05/20/21 09/11/21 09/03/21 08:00 ferrous sulfate 325 mg (65 mg 325 mg PO BID 08/21/21 09/11/21 09/03/21 08:00 iron) tablet leflunomide 20 mg tablet 20 mg PO QAM 08/21/21 09/11/21 09/03/21 08:00 ondansetron 4 mg disintegrating 4 mg TRANSLINGUAL DAILY PRN 08/21/21 09/11/21 Unknown tablet tramadol 50 mg tablet 50 mg PO BID 08/21/21 09/11/21 09/03/21 08:00 Saccharomyces boulardii 250 mg 250 mg PO QAM 09/03/21 09/11/21 09/03/21 08:00 capsule (Florastor) cyanocobalamin (vitamin B-12) 500 500 mcg PO QAM 09/03/21 09/11/21 09/03/21 08:00 mcg tablet (Vitamin B-12) levothyroxine 50 mcg tablet 50 mcg PO QAM 09/03/21 09/11/21 09/03/21 08:00 multivit,tx with iron 27 1 tab PO QAM 09/03/21 09/11/21 09/03/21 08:00 [id number] acid 0.4 mg-minerals tablet Active Medications Generic Name Dose Route Start Last Admin Trade Name Freq PRN Reason Stop Dose Admin Acetaminophen 650 mg 09/11/21 18:00 09/14/21 06:04 Acetaminophen 325 Mg Tab PO 10/11/21 17:59 650 mg Q6H [facility] Administration Amlodipine Besylate 5 mg 09/12/21 09:00 09/14/21 08:33 Amlodipine Besylate 5 Mg Tab PO 10/12/21 08:59 5 mg QAM STEPHANIE Administration Atorvastatin Calcium 40 mg 09/12/21 09:00 09/14/21 08:38 Atorvastatin 40 Mg Tab PO 10/12/21 08:59 Not Given QAM STEPH[facility]IE Cyanocobalamin 500 mcg 09/12/21 09:00 09/14/21 08:38 Cyanocobalamin (B-12) 500 Mcg Tablet PO 10/12/21 08:59 Not Given QAM STEPHANIE Ezetimibe 10 mg 09/12/21 09:00 09/14/21 08:38 Ezetimibe 10 Mg Tablet PO 10/12/21 08:59 Not Given QAM STEPHANIE Ferrous Sulfate 325 mg 09/11/21 21:00 09/14/21 08:38 Ferrous Sulfate 325 Mg Tab PO 10/11/21 20:59 Not Given BID STEPH[facility]IE Folic Acid 2 mg 09/12/21 09:00 09/14/21 08:38 Folic Acid 1 Mg Tab PO 10/12/21 08:59 Not Given QAM [facility]IE Gabapentin 200 mg 09/11/21 21:00 09/14/21 08:38 Gabapentin 100 Mg Cap PO 10/11/21 20:59 Not Given TID [facility] Leflunomide 20 mg 09/12/21 09:00 09/14/21 08:39 Leflunomide 10 Mg Tab PO 10/12/21 08:59 Not Given QAM [facility] Levothyroxine Sodium 50 mcg 09/12/21 06:30 09/14/21 06:04 Levothyroxine Sodium 50 Mcg Tablet PO 10/12/21 06:29 50 mcg DAILYBB [facility] Administration Methotrexate 10 mg 09/12/21 09:00 09/12/21 08:45 Methotrexate Sodium 2.5 Mg Tab PO 10/12/21 08:59 10 mg Fr@0900 [facility] Administration Metoprolol Succinate 50 mg 09/11/21 21:00 09/14/21 08:32 Metoprolol Succ 50mg Ext Rel Tab PO 10/11/21 20:59 50 mg BID [facility]IE Administration Morphine Sulfate 3 mg 09/11/21 20:50 09/11/21 21:48 Morphine Sulfate 4 Mg/Ml 1 Ml Carp\Vial IV 09/25/21 20:49 3 mg Q6H PRN Administration severe pain Nitrofurantoin Macrocrystals 100 mg 09/14/21 09:00 09/14/21 08:55 Nitrofurantoin Monohydrate 100 Mg Cap PO 09/19/21 08:59 100 mg BID [facility]IE Administration Ondansetron HCl 4 mg 09/11/21 20:06 09/13/21 11:19 Ondansetron Inj 2 Mg/Ml 2 Ml Vial IV 10/11/21 20:05 4 mg Q6H PRN Administration Nausea And Vomiting Pantoprazole Sodium 40 mg 09/12/21 09:00 09/14/21 08:39 Pantoprazole 40 Mg Tab PO 10/12/21 08:59 Not Given QAM [facility] Prednisone 5 mg 09/12/21 09:00 09/14/21 08:33 Prednisone 5 Mg Tab PO 10/12/21 08:59 5 mg QAM [facility]IE Administration Saccharomyces Boulardii 250 mg 09/12/21 09:00 09/14/21 08:39 Saccharomyces Boulardii 250 Mg Cap PO 10/12/21 08:59 Not Given QAM [facility]IE Tramadol HCl 50 mg 09/11/21 21:00 09/14/21 08:39 Tramadol Hcl 50 Mg Tablet PO 10/11/21 20:59 Not Given BID [facility] Past Medical History Medical History (Updated 09/14/21 @ 09:42 by Danita Bhatti MD) Anemia C. difficile colitis CAD (coronary artery disease) Chronic anticoagulation CKD (chronic kidney disease) stage 3, GFR 30-59 ml/min Diverticular disease hx diverticulitis GERD (gastroesophageal reflux disease) History of DVT (deep vein thrombosis) a few years ago. remote h/o PE as well. on nursing home anticoagulation HLD (hyperlipidemia) HTN (hypertension) Hypothyroidism Lumbar disc herniation with radiculopathy Lumbar radiculopathy NSVT (nonsustained ventricular tachycardia) Obstructive sleep apnea WEARS O2 AT 2L AT HS On home oxygen therapy 2L AT HS Paroxysmal SVT (supraventricular tachycardia) Rheumatoid arthritis RLS (restless legs syndrome) Severe aortic stenosis prior to TAVR SVT (supraventricular tachycardia) Thrombocytopenia Past Family History Family History Other Heart disease No family history of adverse response to anesthesia Rheumatoid arthritis Past Surgical History Surgical History H/O colonoscopy H/O eye surgery LEFT History of carpal tunnel surgery RT/LEFT History of esophagogastroduodenoscopy (EGD) History of heart artery stent 03/18/2020-TYLER x 2 to LAD History of lumbar fusion History of tooth extraction History of total knee replacement RT/LEFT S/P CHANNING-BSO S/P TAVR (transcatheter aortic valve replacement) Social History Smoking Status: Former smoker tobacco type: cigarettes Do You Dip or Chew Tobacco: No Hx Alcohol Use: No Alcohol type: wine alcohol intake frequency: holidays/special occasions only Hx Substance Use: No substance use type: does not use Physical Exam Vital Signs Last Vital Signs Temp 36.9 C 09/14/21 07:04 Pulse 68 09/14/21 07:04 Resp 16 09/14/21 07:04 BP 184/74 H 09/14/21 07:04 Pulse Ox 97 09/14/21 07:04 Testing Laboratory Results 09/13/21 05:54 09/13/21 05:54 PT 14.4 Seconds (9.0-12.0) H 09/12/21 08:50 INR 1.4 (0.9-1.1) H 09/12/21 08:50 APTT 45.0 Seconds (21.0-31.0) H 09/11/21 09:30 Urine Color Yellow 09/11/21 12:32 Urine Appearance Clear (Clear) 09/11/21 12:32 Urine pH 7.0 (4.5-7.5) 09/11/21 12:32 Ur Specific [place] > 1.045 (1.000-1.030) H 09/11/21 12:32 Urine Protein Negative (Negative) 09/11/21 12:32 Urine Glucose (UA) Negative (Negative) 09/11/21 12:32 Urine Ketones Negative (Negative) 09/11/21 12:32 Urine Nitrite Positive (Negative) A 09/11/21 12:32 Ur Leukocyte Esterase Negative (Negative) 09/11/21 12:32 Urine WBC (Auto) 5-10 /hpf (0-5) H 09/11/21 12:32 Urine RBC (Auto) 0-4 /hpf (0-4) 09/11/21 12:32 U Hyaline Cast (Auto) 1-5 /lpf (0-5) 09/11/21 12:32 U Epithel Cells (Auto) 10-20 /lpf (0-5) H 09/11/21 12:32 Urine Bacteria (Auto) 4+ (Negative) H 09/11/21 12:32 Blood Type A Positive 09/11/21 10:33 Antibody Screen NEGATIVE 09/11/21 10:33 09/11/21 12:32 Urine Culture - Final Urine,Straight Cath Escherichia coli Electrocardiogram Date: 09/11/21 Sinus rhythm with 1st degree A-V block Left axis deviation Moderate voltage criteria for LVH, may be normal variant Abnormal ECG When compared with ECG of 11-SEP-2021 11:20, (unconfirmed) No significant change was found Confirmed by Zackary Mandel ([id number]) on 09/12/2021 11:32:54 AM Chest X-Ray Date: 09/11/21 IMPRESSION: Mild cardiomegaly with no acute cardiopulmonary abnormality Echocardiogram Date: 09/04/21 EF: 55-60% S/P tavr
--- NOTE | 2021-09-13 17:01 | Hospitalist Progress Note ---
Date of Service September 13, 2021 Assessment & Plan (1) Fall: (2) Leg hematoma: Plan: Patient presenting from [facility] for evaluation after fall and subsequent left knee pain, swelling, bruising In the ED, left knee XR negative for fracture On exam, patient is found to have significant hematoma On Coumadin, INR 3.9->reversed with Vit K and INR 1.4 Holding Plavix and Coumadin with hematoma and Hb drop requiring blood transfusion- resume when indicated Seen by ortho- may need hematoma evacuation- they will reassess tomorrow (3) Anemia: Plan: Baseline Hb ~ 10- >7.7->6.9->10.8->11.3 s/p 2 U PRBC Monitor H&H, transfuse as needed (4) UTI (urinary tract infection): Plan: urine clx with Ecoli sensitive to rocephin- continue D 05/31 (5) Compression fracture: Plan: CT lumbar spine shows Subacute burst type compression fracture of L3 which involves both pedicles. Minimal retropulsion at the level of the superior endplate. Mild subacute inferior endplate compression fracture of L2. Seen by Dr Gonzalez- chronic, asymptomatic and no intervention currently (6) Thrombocytopenia: Plan: platelets 85K->52K->67 K. Monitor (7) Retinal artery branch occlusion of right eye: Plan: Diagnosed on 09/03/2021 Continue statin Resume Plavix and warfarin as soon as possible (8) Paroxysmal SVT (supraventricular tachycardia): Plan: History of, continue metoprolol (9) History of DVT (deep vein thrombosis): Plan: Holding Coumadin as above (10) CAD (coronary artery disease): Plan: Appears stable, no reports of chest pain Continue statin, Zetia, and beta-danielito Holding Plavix as above (11) HTN (hypertension): Plan: BP controlled, continue amlodipine and metoprolol (12) Hypothyroidism: Plan: Continue levothyroxine (13) DVT prophylaxis: Plan: SCDs RLE Admission and Anticipated Discharge Date Admission Date: September 11, 2021 Subjective No new issues. Still has pain in left knee. She would like to get out of bed and walk. No other issues. Physical Exam Physical Exam: General: Sitting comfortably in bed, not in distress, on room air HEENT: EOMI, MELECIO, MMM. Decreased vision right eye since recent retinal artery occlusion Chest: Clear breath sounds bilaterally, no wheezes or crackles CVS: Regular rate and rhythm, normal heart sounds, no murmur Abdomen: Soft, non tender, not distended, normal bowel sounds Neuro: Awake, alert, oriented, conversing well, non focal Extremities: Left knee and thigh hematoma/ecchymoses, left buttock ecchymoses. ROM limited due to pain. Results & Data Results & Data ([facility]) Vital Signs (Past 12 Hours) Vital Signs Temp Pulse Resp BP Pulse Ox 09/13/21 16:35 36.9 C 73 18 130/67 96 09/13/21 08:16 37.4 C 80 18 137/82 91 Laboratory Results Short CBC 09/13/21 Range/Units 05:54 WBC 3.82 L (4.8-10.8) K/uL Hgb 11.3 L (12.0-16.0) g/dL Hct 33.4 L (37-47) % Plt Count 67 L (130-400) K/uL BMP 09/13/21 05:54 Sodium 137 Potassium 3.7 Chloride 108 H Carbon Dioxide 21 BUN 14 Creatinine 0.68 Glucose 86 Calcium 7.9 L Medications Administered Current Inpatient Medications Acetaminophen (Acetaminophen 325 Mg Tab) 650 mg PO Q6H [facility] Stop: 10/11/21 17:59 Last Admin: 09/13/21 05:53 Dose: Not Given Documented by: Acetaminophen (Acetaminophen 1000 Mg/100 Ml Iv) 1,000 mg IV TID PRN PRN Reason: Pain or Fever Stop: 09/14/21 20:05 Amlodipine Besylate (Amlodipine Besylate 5 Mg Tab) 5 mg PO [facility] Stop: 10/12/21 08:59 Last Admin: 09/13/21 12:45 Dose: 5 mg Documented by: Atorvastatin Calcium ([facility]vastatin 40 Mg Tab) [facility] [place]: 10/12/21 08:59 Last Admin: 09/13/21 16:20 Dose: 40 mg Documented by: Cyanocobalamin (Cyanocobalamin (B-12) 500 Mcg Tablet) 500 [facility] [place] [place] Stop: 10/12/21 08:59 Last Admin: 09/13/21 12:45 Dose: 500 mcg Documented by: Ezetimibe (Ezetimibe 10 Mg Tablet) 10 mg PO [facility] Stop: 10/12/21 08:59 Last Admin: 09/13/21 16:20 Dose: 10 mg Documented by: Ferrous Sulfate (Ferrous Sulfate 325 Mg Tab) 325 mg PO BID [facility] Stop: 10/11/21 20:59 Last Admin: 09/13/21 12:45 Dose: 325 mg Documented by: Folic Acid (Folic Acid 1 Mg Tab) 2 mg PO QAM [facility] Stop: 10/12/21 08:59 Last Admin: 09/13/21 16:20 Dose: 2 mg Documented by: Gabapentin (Gabapentin 100 Mg Cap) 200 mg PO TID [facility] Stop: 10/11/21 20:59 Last Admin: 09/13/21 16:19 Dose: 200 mg Documented by: Ceftriaxone Sodium 1,000 mg/ (Dextrose) 60 mls @ 100 mls/hr IV DAILY [facility]; Protocol Stop: 09/16/21 15:59 Last Admin: 09/13/21 12:34 Dose: 100 mls/hr Documented by: Leflunomide (Leflunomide 10 Mg Tab) 20 mg PO QAM [facility] Stop: 10/12/21 08:59 Last Admin: 09/13/21 13:20 Dose: 20 mg Documented by: Levothyroxine Sodium (Levothyroxine Sodium 50 Mcg Tablet) 50 mcg PO DAILYBB [facility] Stop: 10/12/21 06:29 Last Admin: 09/13/21 05:53 Dose: Not Given Documented by: Methotrexate (Methotrexate Sodium 2.5 Mg Tab) 10 mg PO Fr@0900 [facility] Stop: 10/12/21 08:59 Last Admin: 09/12/21 08:45 Dose: 10 mg Documented by: Metoprolol Succinate (Metoprolol Succ 50mg Ext Rel Tab) 50 mg PO BID [facility] Stop: 10/11/21 20:59 Last Admin: 09/13/21 12:45 Dose: 50 mg Documented by: Morphine Sulfate (Morphine Sulfate 4 Mg/Ml 1 Ml Carp\Vial) 3 mg IV Q6H PRN PRN Reason: severe pain Stop: 09/25/21 20:49 Last Admin: 09/11/21 21:48 Dose: 3 mg Documented by: Ondansetron HCl (Ondansetron Inj 2 Mg/Ml 2 Ml Vial) 4 mg IV Q6H PRN PRN Reason: Nausea And Vomiting Stop: 10/11/21 20:05 Last Admin: 09/13/21 11:19 Dose: 4 mg Documented by: Pantoprazole Sodium (Pantoprazole 40 Mg Tab) [facility] Stop: 10/12/21 08:59 Last Admin: 09/13/21 13:20 Dose: 40 mg Documented by: Prednisone (Prednisone 5 Mg Tab) 5 mg PO QAM [facility] Stop: 10/12/21 08:59 Last Admin: 09/13/21 13:22 Dose: 5 mg Documented by: Saccharomyces Boulardii (Saccharomyces Boulardii 250 Mg Cap) 250 mg PO QAM [facility] Stop: 10/12/21 08:59 Last Admin: 09/13/21 13:20 Dose: 250 mg Documented by: Tramadol HCl (Tramadol Hcl 50 Mg Tablet) 50 mg PO BID [facility] Stop: 10/11/21 20:59 Last Admin: 09/12/21 21:53 Dose: 50 mg Documented by: (1) Fall Encounter type: initial encounter Qualified Code(s): W19.XXXA - Unspecified fall, initial encounter (2) Anemia Anemia type: unspecified type Qualified Code(s): D64.9 - Anemia, unspecified (3) HTN (hypertension) Hypertension type: essential hypertension Qualified Code(s): I10 - Essential (primary) hypertension
[2021-09-13] MEDS: traMADol HCL 50 MG TABLET PO SCH ×2 (17:43→20:05)
[2021-09-14] MEDS: ACETAMINOPHEN 325 MG TAB PO SCH ×4 (06:04→23:12)
[2021-09-14] MEDS: LEVOTHYROXINE SODIUM 50 MCG TABLET PO SCH (06:04)
[2021-09-14] MEDS: METOPROLOL SUCC 50MG EXT REL TAB PO SCH ×2 (08:32→20:36)
[2021-09-14] MEDS: amLODIPine BESYLATE 5 MG TAB PO SCH (08:33)
[2021-09-14] MEDS: predniSONE 5 MG TAB PO SCH (08:33)
[2021-09-14] MEDS: FERROUS SULFATE 325 MG TAB PO SCH ×2 (08:38→20:34)
[2021-09-14] MEDS: CYANOCOBALAMIN (B-12) 500 MCG TABLET PO SCH (08:38)
[2021-09-14] MEDS: GABAPENTIN 100 MG CAP PO SCH ×3 (08:38→20:34)
[2021-09-14] MEDS: FOLIC ACID 1 MG TAB PO SCH (08:38)
[2021-09-14] MEDS: ATORVASTATIN 40 MG TAB PO SCH (08:38)
[2021-09-14] MEDS: EZETIMIBE 10 MG TABLET PO SCH (08:38)
[2021-09-14] MEDS: traMADol HCL 50 MG TABLET PO SCH (08:39)
[2021-09-14] MEDS: PANTOprazole 40 MG TAB PO SCH (08:39)
[2021-09-14] MEDS: LEFLUNOMIDE 10 MG TAB PO SCH (08:39)
[2021-09-14] MEDS: SACCHAROMYCES BOULARDII 250 MG CAP PO SCH (08:39)
[2021-09-14] MEDS: NITROFURANTOIN MONOHYDRATE 100 MG CAP PO SCH ×2 (08:55→20:34)
[2021-09-14] MEDS ORDERED: ceFAZolin 330 MG/ML 1 GM VIAL ONE (09:34)
[2021-09-14] MEDS ORDERED: ePHEDrine sulfate 50 MG/ML AMP IV PRN (09:47)
[2021-09-14] MEDS ORDERED: ATROPINE SULFATE 0.1 MG/ML 10ML SYR IV PRN (09:47)
[2021-09-14] MEDS ORDERED: ceFAZolin 2,000 MG/15 ML IV PUSH IV ONE (09:47)
[2021-09-14] MEDS ORDERED: ONDANSETRON INJ 2 MG/ML 2 ML VIAL IV PRN (09:47)
--- NOTE | 2021-09-14 10:46 | History & Physical Bridge Note ---
Date of Service September 14, 2021 History & Physical Bridge Note I have examined the patient, reviewed the History & Physical and in the interval since the performance of the History & Physical I have noted the following changes of clinical significance: Will require incision and drainage left knee hematoma possible arthrotomy with poly exchange.
[2021-09-14] MEDS ORDERED: fentaNYL citrate 100 MCG/2 ML VIAL ONE ×3 (11:09→12:57)
[2021-09-14] MEDS ORDERED: LIDOCAINE 2% 2 ML VIAL/AMP(20MG/ML) INFIL ONE ×2 (11:10)
[2021-09-14] MEDS ORDERED: ONDANSETRON INJ 2 MG/ML 2 ML VIAL ONE (11:12)
[2021-09-14] MEDS ORDERED: PROPOFOL IV EMULSION 10 MG/ML 20 ML VIAL IV ONE (11:12)
[2021-09-14] MEDS ORDERED: HYDROCORTISONE SOD SUCCINATE 100 MG/2 ML VIAL ONE (11:20)
[2021-09-14] MEDS ORDERED: ePHEDrine sulfate 50 MG/ML AMP ONE (11:38)
[2021-09-14] MEDS ORDERED: GELATIN SPONGE SZ 100 ONE (12:14)
[2021-09-14] MEDS ORDERED: THROMBIN FOR SOLN 20000 UNIT KIT ONE (12:14)
--- NOTE | 2021-09-14 12:37 | Post Operative Brief Note ---
Immediate Post Op Note v1 Date of Surgery September 14, 2021 Pre & Post Diagnosis Operation Date: 09/14/21 09:30 Pre-Op Diagnosis: Left knee hematoma medial aspect Post-Op Diagnosis: Left knee hematoma medial aspect I identified the patient and participated in the time-out.: Yes Procedure Operation Date: 09/14/21 09:30 Actual Procedures p Incision and Drainage Left Knee Hematoma (Left) - Fab Aldana DO Surgeon Fab Aldana DO Boiler Tube Blower Moncho Vazquez PA-C Estimated Blood Loss 30 Findings Consistent with Post-Op Diagnosis Drains Hemovac Drain (dual luman 10fr) Anesthesia Type General Complications none Disposition Accompanied Patient To Recovery: No
[2021-09-14] MEDS ORDERED: ESMOLOL HCL INJ 10 MG/ML 10ML VIAL IV ONE (12:40)
[2021-09-14] MEDS: fentaNYL citrate 100 MCG/2 ML VIAL IV PRN ×4 (12:58→13:13)
--- NOTE | 2021-09-14 13:24 | Anesthesiology Progress Note ---
Date of Service September 14, 2021 Anesthesia Post Procedure Vital Signs Vital Signs: Temp Pulse Pulse Resp BP BP Pulse Ox 09/14/21 13:20 86 19 121/77 97 09/14/21 13:10 97 H 19 124/79 96 09/14/21 13:00 99 H 14 148/83 H 98 09/14/21 12:50 36.4 C L 102 H 16 160/86 H 100 09/14/21 07:04 36.9 C 68 16 184/74 H 97 09/13/21 22:10 36.9 C 75 16 162/76 H 97 09/13/21 16:35 36.9 C 73 18 130/67 96 Pain Intensity Left Knee: Pain Intensity: 4 Transfer of Care Handoff Completed per policy Notes Mental Status: alert / awake / arousable and participated in evaluation Patient Amnestic to Procedure: Yes Nausea / Vomiting: adequately controlled Pain: adequately controlled Airway Patency, RR, SpO2: stable & adequate BP & HR: stable & adequate Hydration State: stable & adequate Anesthetic Complications: no major complications apparent and Pt Satisfied with anesthetic care
[2021-09-14] MEDS ORDERED: MAGNESIUM HYDROXIDE SUSP 30 ML UDC PO PRN (13:43)
[2021-09-14] MEDS ORDERED: bisacodyL 10 MG SUPP PR PRN (13:43)
[2021-09-14] MEDS ORDERED: NALOXONE HCL 0.4 MG/1 ML VIAL/CARP IV PRN (13:43)
[2021-09-14] MEDS: SODIUM CHLORIDE 0.9% 1000ML 1,000 ML IV SCH ×2 (14:04→23:10)
--- NOTE | 2021-09-14 14:35 | Operative Report (OR) ---
DATE OF PROCEDURE: 09/14/2021 PREOPERATIVE DIAGNOSIS: Left medial sided knee hematoma. POSTOPERATIVE DIAGNOSIS: Left medial sided knee hematoma. PROCEDURE PERFORMED: Left knee incision and drainage of hematoma. SURGEON: Fab Aldana DO CUSTOMS VERIFIER: Moncho Vazquez PA-C ANESTHESIA: General, local anesthesia. SPECIMENS: None. DRAINS: Hemovac x2. COMPLICATIONS: None. BLOOD LOSS: 30 mL PERTINENT HISTORY: This is an 80-year-old female who is on chronic anticoagulation, status post ellie ficial heart valve replacement. She sustained a fall on her knee and had difficulty ambulating after the fall, had severe swelling over the medial knee with hematoma formation. She was admitted to the hospitalist service and we consulted for assessment. The patient did have a large hematoma, w hich appeared to be extraarticular at the medial aspect of the left knee. She was observed for 2-3 d ays and then failed to show adequate improvement with continued pain and risk of tissue necrosis. Th e patient had a history of left total knee arthroplasty [place] [address] Magdiel li . Appeared to be no evidence of rupture of the joint capsule. Therefore, the patient was scheduled for surgery as indicated with the understanding that if the joint capsule was perforated, the patient would need to have open irrigation and debridement including the total knee arthroplasty with exchan ge of the polyethylene component. All potential risks, benefits, complications, alternatives, rehab potential for incomplete relief of symptoms, need for further surgery, DVT, PE, , persistent pain, swelling, scarring, weakness, ne urovascular injury, wound complications, hardware failure, loss of function, stiffness, possible need for revision arthroplasty were discussed with the patient and her power of graduate teacher education. Power of attor jerald and the patient both agreed to the procedure as indicated. The patient was scheduled for surgery as indicated. DESCRIPTION OF PROCEDURE: The patient was taken to the operative suite and placed supine on the oper ating room table. After review of consent and identification of proper operative site, the patient w as anesthetized, LMA was placed. Tourniquet was placed high on the left knee over cast padding. Lef t lower extremity was then sterilely prepped and draped in the usual fashion, elevated and exsanguina sherita with an Esmarch bandage and tourniquet inflated to 325 mmHg. Next, after surgical timeout was performed, incision was made just proximal to the site of maximal sw elling to avoid any further tissue compromise at the site. This was done in anteromedial aspect of t he left knee. With a #10 blade scalpel, incision was made approximately 2.5 cm in length. The incis ion was deepened through the skin and subcutaneous tissue. Meticulous hemostasis was achieved with e lectrocautery. Full thickness skin flaps were maintained. David retractors were placed in the soft tissue and then the pocket of the hematoma was then ruptured with a Metzenbaum scissors and currant j divina clot was evacuated. The retinaculum appeared to be intact. There was no oozing appreciated. N ext, the site was then copiously irrigated with pulsatile lavage, approximately 6 L with Ancef and ag ain no evidence of a rupture of the medial joint capsule. Two 10-Faroese single-lumen Hemovac drains were placed. Generalized oozing was noted from the patient's chronic use of warfarin and other antico agulants. Therefore, a small piece of Gelfoam and a moderate amount of thrombin was injected in and around the soft tissue site and placed under direct compression using a lap sponge. Once bleeding an d oozing had subsided, site then was closed with buried interrupted 2-0 Vicryl in the dermis and then the skin was closed using skin jared. The incision site was then injected with 0.5% Marcaine plai n. The patient was awakened. Tourniquet was released. The patient was then taken to recovery in st able condition. Job ID: [id number]
[2021-09-14] MEDS: MoRPHine SULFATE 4 MG/ML 1 ML CARP\\VIAL IV PRN ×2 (14:54→15:18)
[2021-09-14] MEDS: ceFAZolin 1000MG 1,000 MG/7.5 ML SYR IV SCH (20:33)
[2021-09-14] MEDS: DOCUSATE SODIUM 100 MG CAP PO SCH (20:35)
[2021-09-15] MEDS: traMADol HCL 50 MG TABLET PO PRN ×2 (04:16→22:21)
[2021-09-15] MEDS: LEVOTHYROXINE SODIUM 50 MCG TABLET PO SCH (06:05)
[2021-09-15] MEDS: ACETAMINOPHEN 325 MG TAB PO SCH ×3 (06:05→17:57)
[2021-09-15] MEDS: ceFAZolin 1000MG 1,000 MG/7.5 ML SYR IV SCH ×3 (06:09→20:22)
--- NOTE | 2021-09-15 07:57 | Hospitalist Progress Note ---
Date of Service September 14, 2021 Assessment & Plan (1) Fall: (2) Leg hematoma: Plan: Patient presenting from [facility] for evaluation after fall and subsequent left knee pain, swelling, bruising In the ED, left knee XR negative for fracture On exam, patient is found to have significant hematoma On Coumadin, INR 3.9->reversed with Vit K and INR 1.4 Holding Plavix and Coumadin with hematoma and Hb drop requiring blood transfusion- resume when indicated Status post hematoma evacuation today, 09/[address] Aldana Wound care per Ortho Activity per Ortho Will ensure Ortho is permittingprior to resuming blood thinners. (3) UTI (urinary tract infection): Plan: urine clx with Ecoli -Rocephin changed to Macrobid (4) Compression fracture: Plan: CT lumbar spine shows Subacute burst type compression fracture of L3 which involves both pedicles. Minimal retropulsion at the level of the superior endplate. Mild subacute inferior endplate compression fracture of L2. Seen by Dr Gonzalez- chronic, asymptomatic and no intervention currently (5) Thrombocytopenia: Plan: Unclear etiology but also with platelets <100 in Fe, then back to low normal, now again <100. Cont to monitor. Cautious with restart of blood thinners. 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 (7) Paroxysmal SVT (supraventricular tachycardia): Plan: History of, continue metoprolol-warfarin on hold at this time. (8) History of DVT (deep vein thrombosis): Plan: Holding Coumadin as above (9) CAD (coronary artery disease): Plan: chronic, stable, no reports of chest pain Continue statin, Zetia, and beta-danielito Holding Plavix as above (10) HTN (hypertension): Plan: BP around goal, continue amlodipine and metoprolol, cont good pain control efforts post op (11) Hypothyroidism: Plan: chronic, stable. Continue levothyroxine (12) Post-operative state: (13) DVT prophylaxis: Plan: SCDs RLE DNR/DNI Dispo-uncertain, pending recovery and ortho recommendations. Zeynep Hale DO [facility] Hospitalist Admission and Anticipated Discharge Date Admission Date: September 11, 2021 Subjective 80-year-old female presenting for [facility] for evaluation after fall and subsequent left knee pain with swelling and bruising. She is status post hematoma evacuation by Dr. Aldana today and Coumadin and Plavix continue to be held. She is feeling well today postoperatively According to nurse she was confused and combative when she initially came to the floor but was better with morphine She is currently pleasant and reporting pain well controlled Denies chest pain or shortness of breath. Review of Systems Review of Systems: All systems reviewed negative except as indicated above. Physical Exam Physical Exam: CONSTITUTIONAL: WNWD, vitals as above, generally well-ap pearing, NAD EYES: normal conjunctivae, no scleral icterus, ENT: external ear and nose normal, MMM NECK: trachea midline, RESPIRATORY: clear to auscultation bilaterally, no crackles, rales or wheezes, normal respiratory effort CARDIOVASCULAR: regular rate and rhythm, S1 and 2 heard without murmurs, gallops or rubs, no JVD, no peripheral edema, CHEST: inspection of chest was normal GASTROINTESTINAL: soft, nontender, ND, no guarding MUSCULOSKELETAL: moving upper extremities with ease, lower extremities are warm and well perfused, left knee in post op state-dressings in place, strength not tested, head is normocephalic and atraumatic, SKIN: warm and dry, NEUROLOGIC: CN 2-12 grossly intact, no sensory deficit, normal cognition, normal speech, no tremor PSYCHIATRIC: alert cooperative and oriented to person, place and time. Results & Data Results & Data ([facility]) Vital Signs (Past 12 Hours) Vital Signs Temp Pulse Resp BP Pulse Ox 09/15/21 07:20 36.5 C 62 16 168/77 H 98 09/15/21 03:16 36.5 C 70 16 159/66 H 98 09/14/21 22:58 36.7 C 77 16 148/78 H 91 09/14/21 20:30 36.6 C 81 16 125/68 96 (1) Fall Encounter type: initial encounter Qualified Code(s): W19.XXXA - Unspecified fall, initial encounter (2) HTN (hypertension) Hypertension type: essential hypertension Qualified Code(s): I10 - Essential (primary) hypertension
[2021-09-15 08:19] LABS: Hematocrit (blood only) 30.5 % (37-47); Hemoglobin 10.3 g/dL (12.0-16.0); Mean Corpuscular Hemoglobin 33.8 pg (25-34); Mean Corpuscular Hgb Conc 33.8 g/dL (32-36); Mean Platelet Volume 10.4 fL (7.4-10.4); Platelet Count 102 K/uL (130-400); Platelet Estimate Decreased (Normal); RDW Coefficient of Variation 20.3 % (11.5-14.5); RDW Standard Deviation 73.3 fL (36.4-46.3); Red Blood Count 3.05 M/uL (4.2-5.4)
[2021-09-15 08:35] LABS: BUN Creatinine Ratio 16.9 (10-20); Creatinine Clr Calc Pharmacy 47.6 ml/min; Est GFR (African American) 83.9 ml/min; Est GFR (Non-African American) 72.4 ml/min; Potassium 3.7 mmol/L (3.5-5.1)
[2021-09-15] MEDS: DOCUSATE SODIUM 100 MG CAP PO SCH ×2 (08:48→20:25)
[2021-09-15] MEDS: METOPROLOL SUCC 50MG EXT REL TAB PO SCH ×2 (08:48→20:24)
[2021-09-15] MEDS: GABAPENTIN 100 MG CAP PO SCH ×3 (08:49→20:23)
[2021-09-15] MEDS: FERROUS SULFATE 325 MG TAB PO SCH ×2 (08:49→20:23)
[2021-09-15] MEDS: NITROFURANTOIN MONOHYDRATE 100 MG CAP PO SCH ×2 (08:50→20:25)
[2021-09-15] MEDS: LEFLUNOMIDE 10 MG TAB PO SCH (08:50)
[2021-09-15] MEDS: amLODIPine BESYLATE 5 MG TAB PO SCH (08:51)
[2021-09-15] MEDS: SACCHAROMYCES BOULARDII 250 MG CAP PO SCH (08:51)
[2021-09-15] MEDS: EZETIMIBE 10 MG TABLET PO SCH (08:51)
[2021-09-15] MEDS: PANTOprazole 40 MG TAB PO SCH (08:51)
[2021-09-15] MEDS: ATORVASTATIN 40 MG TAB PO SCH (08:52)
[2021-09-15] MEDS: predniSONE 5 MG TAB PO SCH (08:52)
[2021-09-15] MEDS: FOLIC ACID 1 MG TAB PO SCH (08:52)
[2021-09-15] MEDS: CYANOCOBALAMIN (B-12) 500 MCG TABLET PO SCH (08:53)
[2021-09-15] MEDS: MULTIVITAMIN TAB PO SCH (08:53)
[2021-09-15] MEDS: ONDANSETRON INJ 2 MG/ML 2 ML VIAL IV PRN (13:56)
--- NOTE | 2021-09-15 18:46 | Orthopedic Progress Note ---
Date of Service September 15, 2021 Assessment & Plan (1) Leg hematoma: Plan: Left leg hematoma medial aspect of knee, POD#1 I&D PT/OT-WBAT On warfarin, okay to resume anticoagulation AM labs-hemoglobin at 10.3 this morning. Follow H&H. Dressing change tomorrow. Monitor hemovac output. Admission and Anticipated Discharge Date Admission Date: September 11, 2021 Subjective Patient is POD#1 I&D of left knee hematoma. She is doing well this evening. Pain well controlled. No other complaints. Review of Systems Review of Systems: All systems reviewed & are unremarkable except as noted in Subjective Physical Exam Physical Exam: Left knee: Dressing is c/d/i. Hemovac on suction. Toes mobile. No calf tenderness. Distally n/v status and sensation intact. Constitutional: WD/WN, vitals as above Results & Data ([facility]) Vital Signs (Past 12 Hours) Vital Signs Temp Pulse Resp BP Pulse Ox 09/15/21 16:40 37.0 C 78 16 147/76 H 99 09/15/21 07:20 36.5 C 62 16 168/77 H 98
--- NOTE | 2021-09-15 21:04 | Hospitalist Progress Note ---
Date of Service September 15, 2021 Assessment & Plan (1) Fall: Plan: Per PT ok to return to [facility], cont fall precautions. S/P treatment of a UTI and of acute blood loss anemia requiring transfusions. (2) Leg hematoma: Plan: Patient presenting from [facility] for evaluation after fall and subsequent left knee pain, swelling, bruising In the ED, left knee XR negative for fracture On exam, patient is found to have significant hematoma On Coumadin, INR 3.9->reversed with Vit K and INR 1.4 Holding Plavix and Coumadin with hematoma and Hb drop requiring blood transfusion- resume when indicated Status post hematoma evacuation today, 09/[address] Aldana Wound care per Ortho Activity per Ortho Will ensure Ortho is permitting prior to resuming blood thinners. Personal jail recommended by PT eval today (3) Post-operative state: (4) Anemia: Plan: Acute blood loss anemia improved after transfusion. Now stable around 10.3. Continue to trend. There is no overt active bleeding. (5) UTI (urinary tract infection): Plan: urine clx with Ecoli -Rocephin changed to Macrobid (6) Compression fracture: Plan: CT lumbar spine shows Subacute burst type compression fracture of L3 which involves both pedicles. Minimal retropulsion at the level of the superior endplate. Mild subacute inferior endplate compression fracture of L2. Seen by Dr Gonzalez- hari, asymptomatic and no intervention currently (7) Thrombocytopenia: Plan: Unclear etiology but also with platelets <100 in Apr, then back normal. 102K today. Cont to monitor. Cautious with restart of blood thinners. 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 (9) Paroxysmal SVT (supraventricular tachycardia): Plan: History of, continue metoprolol-warfarin on hold at this time. (10) History of DVT (deep vein thrombosis): Plan: Holding Coumadin as above (11) CAD (coronary artery disease): Plan: chronic, stable, no reports of chest pain Continue statin, Zetia, and beta-danielito Holding Plavix as above (12) HTN (hypertension): Plan: BP around goal, continue amlodipine and metoprolol, cont good pain control efforts post op (13) Hypothyroidism: Plan: chronic, stable. Continue levothyroxine (14) DVT prophylaxis: Plan: SCDs RLE DNR/DNI Dispo-to [facility] when cleared by ortho and back on her blood thinners. Anticoagulation followup will be important upon returning home. Zeynep Hale DO [facility] Hospitalist Admission and Anticipated Discharge Date Admission Date: September 11, 2021 Subjective Patient is POD#1 I&D of left knee hematoma. Doing well overall Denies any chest pain shortness of breath or other issues Pain controlled She is weightbearing as tolerated and ambulated to the bathroom without issues today. Review of Systems Review of Systems: All systems reviewed negative except as indicated above. Physical Exam Physical Exam: CONSTITUTIONAL: WNWD, vitals as above, generally well- appearing, NAD EYES: normal conjunctivae, no scleral icterus, ENT: external ear and nose normal, MMM NECK: trachea midline, RESPIRATORY: clear to auscultation bilaterally, no crackles, rales or wheezes, normal respiratory effort CARDIOVASCULAR: regular rate and rhythm, S1 and 2 heard without murmurs, gallops or rubs, no JVD, no peripheral edema, CHEST: inspection of chest was normal GASTROINTESTINAL: soft, nontender, ND, no guarding MUSCULOSKELETAL: moving upper extremities with ease, lower extremities are warm and well perfused, left knee in post op state-dressings in place, strength not tested, head is normocephalic and atraumatic, SKIN: warm and dry, NEUROLOGIC: CN 2-12 grossly intact, no sensory deficit, normal cognition, normal speech, no tremor PSYCHIATRIC: alert cooperative and oriented to person, place and time. Results & Data Results & Data ([facility]) Vital Signs (Past 12 Hours) Vital Signs Temp Pulse Resp BP Pulse Ox 09/15/21 16:40 37.0 C 78 16 147/76 H 99 Laboratory Results Short CBC 09/15/21 Range/Units 07:30 WBC 5.20 (4.8-10.8) K/uL Hgb 10.3 L (12.0-16.0) g/dL Hct 30.5 L (37-47) % Plt Count 102 L (130-400) K/uL BMP 09/15/21 07:30 Sodium 141 Potassium 3.7 Chloride 111 H Carbon Dioxide 22 BUN 13 Creatinine 0.77 Glucose 107 H Calcium 8.0 L Medications Administered Current Inpatient Medications Acetaminophen (Acetaminophen 325 Mg Tab) 650 mg PO Q6H [facility] Stop: 10/11/21 17:59 Last Admin: 09/15/21 17:57 Dose: 650 mg Documented by: Amlodipine Besylate (Amlodipine Besylate 5 Mg Tab) 5 mg PO QAM [facility] Stop: 10/12/21 08:59 Last Admin: 09/15/21 08:51 Dose: 5 mg Documented by: Atorvastatin Calcium ([facility]atin 40 Mg Tab) [facility] Stop: 10/12/21 08:59 Last Admin: 09/15/21 08:52 Dose: 40 mg Documented by: Bisacodyl (Bisacodyl 10 Mg Supp) 10 mg IA DAILY PRN PRN Reason: Constipation Stop: 10/14/21 13:42 Cyanocobalamin (Cyanocobalamin (B-12) 500 Mcg Tablet) [facility] Stop: 10/12/21 08:59 Last Admin: 09/15/21 08:53 Dose: 500 mcg Documented by: Docusate Sodium (Docusate Sodium 100 Mg Cap) 100 mg PO BID [facility] Stop: 10/14/21 20:59 Last Admin: 09/15/21 20:25 Dose: 100 mg Documented by: Ezetimibe (Ezetimibe 10 Mg Tablet) 10 mg PO [facility] Stop: 10/12/21 08:59 Last Admin: 09/15/21 08:51 Dose: 10 mg Documented by: Ferrous Sulfate (Ferrous Sulfate 325 Mg Tab) 325 mg PO BID [facility] Stop: 10/11/21 20:59 Last Admin: 09/15/21 20:23 Dose: 325 mg Documented by: Folic Acid (Folic Acid 1 Mg Tab) 2 mg PO QAM [facility] Stop: 10/12/21 08:59 Last Admin: 09/15/21 08:52 Dose: 2 mg Documented by: Gabapentin (Gabapentin 100 Mg Cap) 200 mg PO TID [facility] Stop: 10/11/21 20:59 Last Admin: 09/15/21 20:23 Dose: 200 mg Documented by: Cefazolin Sodium (Ancef 1000mg) 1,000 mg in 7.5 mls @ 2.5 mls/min IV Q8H [facility] Stop: 09/21/21 20:59 Last Admin: 09/15/21 20:22 Dose: 2.5 mls/min Documented by: Leflunomide (Leflunomide 10 Mg Tab) 20 mg PO QAM [facility] Stop: 10/12/21 08:59 Last Admin: 09/15/21 08:50 Dose: 20 mg Documented by: Levothyroxine Sodium (Levothyroxine Sodium 50 Mcg Tablet) 50 mcg PO DAILYBB [facility] Stop: 10/12/21 06:29 Last Admin: 09/15/21 06:05 Dose: 50 mcg Documented by: Magnesium Hydroxide (Magnesium Hydroxide Susp 30 Ml Udc) 30 ml PO Q6H PRN PRN Reason: Constipation Stop: 10/14/21 13:42 Methotrexate (Methotrexate Sodium 2.5 Mg Tab) 10 mg PO Fr@0900 [facility] Stop: 10/12/21 08:59 Last Admin: 09/12/21 08:45 Dose: 10 mg Documented by: Metoprolol Succinate (Metoprolol Succ 50mg Ext Rel Tab) 50 mg PO BID [facility] Stop: 10/11/21 20:59 Last Admin: 09/15/21 20:24 Dose: 50 mg Documented by: Morphine Sulfate (Morphine Sulfate 4 Mg/Ml 1 Ml Carp\Vial) 3 mg IV Q6H PRN PRN Reason: severe pain Stop: 09/25/21 20:49 Last Admin: 09/14/21 15:18 Dose: 3 mg Documented by: Multivitamins (Multivitamin Tab) 1 tab PO [facility] Stop: 10/15/21 08:59 Last Admin: 09/15/21 08:53 Dose: 1 tab Documented by: Naloxone HCl (Naloxone Hcl 0.4 Mg/1 Ml Vial/Carp) 0.1 mg IV Q5M PRN PRN Reason: Oversedation/Resp Depression Stop: 10/14/21 13:42 Nitrofurantoin Macrocrystals (Nitrofurantoin Monohydrate 100 Mg Cap) 100 mg PO BID [facility] Stop: 09/19/21 08:59 Last Admin: 09/15/21 20:25 Dose: 100 mg Documented by: Ondansetron HCl (Ondansetron Inj 2 Mg/Ml 2 Ml Vial) 4 mg IV Q6H PRN PRN Reason: Nausea And Vomiting Stop: 10/11/21 20:05 Last Admin: 09/15/21 13:56 Dose: 4 mg Documented by: Pantoprazole Sodium (Pantoprazole 40 Mg Tab) 40 mg PO [facility] Stop: 10/12/21 08:59 Last Admin: 09/15/21 08:51 Dose: 40 mg Documented by: Prednisone (Prednisone 5 Mg Tab) [facility] Stop: 10/12/21 08:59 Last Admin: 09/15/21 08:52 Dose: 5 mg Documented by: Saccharomyces Boulardii (Saccharomyces Boulardii 250 Mg Cap) 250 mg PO [facility] Stop: 10/12/21 08:59 Last Admin: 09/15/21 08:51 Dose: 250 mg Documented by: Tramadol HCl (Tramadol Hcl 50 Mg Tablet) 50 - 100 mg PO Q4H PRN PRN Reason: Pain & Pre PT Stop: 10/14/21 13:42 Last Admin: 09/15/21 04:16 Dose: 100 mg Documented by: (1) Fall Encounter type: initial encounter Qualified Code(s): W19.XXXA - Unspecified fall, initial encounter (2) HTN (hypertension) Hypertension type: essential hypertension Qualified Code(s): I10 - Essential (primary) hypertension (3) Anemia Anemia type: unspecified type Qualified Code(s): D64.9 - Anemia, unspecified
[2021-09-16] MEDS: ACETAMINOPHEN 325 MG TAB PO SCH ×5 (00:25→23:51)
[2021-09-16] MEDS: LEVOTHYROXINE SODIUM 50 MCG TABLET PO SCH (05:51)
[2021-09-16] MEDS: ceFAZolin 1000MG 1,000 MG/7.5 ML SYR IV SCH ×3 (05:51→20:34)
--- NOTE | 2021-09-16 07:57 | Orthopedic Progress Note ---
Date of Service September 16, 2021 Assessment & Plan (1) Leg hematoma: Plan: Left leg hematoma medial aspect of knee, POD#2 I&D PT/OT-WBAT On warfarin, okay to resume anticoagulation Will discuss hemovac drainage with Dr. Aldana on when he would like the drain removed. Concerned with possible reaccumulation. Admission and Anticipated Discharge Date Admission Date: September 11, 2021 Subjective Postop day 2 Patient sitting up at the edge of her bedside. States she has a little bit of discomfort in the knee this morning but it feels much better than it did prior to surgery. Overall she is feeling much better. Physical Exam Physical Exam: Dressings are clean, dry, and intact. Calves are soft and nontender. Neurovascular intact. Toes are mobile. Hemovac drain is present and latest drainage was 25 cc from the previous shift. Results & Data ([facility]) Vital Signs (Past 12 Hours) Vital Signs Temp Pulse Resp BP Pulse Ox 09/16/21 07:35 36.8 C 80 16 151/70 H 97 09/15/21 22:52 36.9 C 62 16 165/69 H 97
[2021-09-16] MEDS: SACCHAROMYCES BOULARDII 250 MG CAP PO SCH (09:00)
[2021-09-16] MEDS: DOCUSATE SODIUM 100 MG CAP PO SCH ×2 (09:00→20:30)
[2021-09-16] MEDS: CYANOCOBALAMIN (B-12) 500 MCG TABLET PO SCH (09:00)
[2021-09-16] MEDS: FERROUS SULFATE 325 MG TAB PO SCH ×2 (09:01→20:30)
[2021-09-16] MEDS: GABAPENTIN 100 MG CAP PO SCH ×3 (09:01→20:32)
[2021-09-16] MEDS: MULTIVITAMIN TAB PO SCH (09:01)
[2021-09-16] MEDS: LEFLUNOMIDE 10 MG TAB PO SCH (09:02)
[2021-09-16] MEDS: NITROFURANTOIN MONOHYDRATE 100 MG CAP PO SCH ×2 (09:02→20:31)
[2021-09-16] MEDS: EZETIMIBE 10 MG TABLET PO SCH (09:02)
[2021-09-16] MEDS: amLODIPine BESYLATE 5 MG TAB PO SCH (09:03)
[2021-09-16] MEDS: FOLIC ACID 1 MG TAB PO SCH (09:03)
[2021-09-16] MEDS: PANTOprazole 40 MG TAB PO SCH (09:03)
[2021-09-16] MEDS: predniSONE 5 MG TAB PO SCH (09:04)
[2021-09-16] MEDS: METOPROLOL SUCC 50MG EXT REL TAB PO SCH ×2 (09:04→20:31)
[2021-09-16] MEDS: ATORVASTATIN 40 MG TAB PO SCH (09:04)
[2021-09-16 09:15] LABS: Basophils # (auto) 0.03 K/uL (0-0.2); Basophils % (auto) 0.7 %; Eosinophils # (auto) 0.17 K/uL (0-0.5); Eosinophils % (auto) 3.8 %; Hematocrit (blood only) 30.9 % (37-47); Hemoglobin 10.1 g/dL (12.0-16.0); Immature Granulocytes # (auto) 0.02 K/uL (0.00-0.02); Immature Granulocytes % (auto) 0.4 %; Lymphocytes # (auto) 0.82 K/uL (1.2-3.4); Lymphocytes % (auto) 18.1 %; Mean Corpuscular Hemoglobin 32.3 pg (25-34); Mean Corpuscular Hgb Conc 32.7 g/dL (32-36); Mean Corpuscular Volume 98.7 fL (80-100); Mean Platelet Volume 9.9 fL (7.4-10.4); Monocytes # (auto) 0.45 K/uL (0.11-0.59); Neutrophils # (auto) 3.03 K/uL (1.4-6.5); Platelet Count 107 K/uL (130-400); RDW Coefficient of Variation 20.4 % (11.5-14.5); RDW Standard Deviation 70.8 fL (36.4-46.3); Red Blood Count 3.13 M/uL (4.2-5.4); White Blood Count 4.52 K/uL (4.8-10.8)
[2021-09-16 09:23] LABS: INR 1.5 (0.9-1.1); Prothrombin Time 16.1 Seconds (9.0-12.0)
[2021-09-16] MEDS: CLOPIDOGREL BISULFATE 75 MG TAB PO SCH (09:27)
[2021-09-16] MEDS: ONDANSETRON INJ 2 MG/ML 2 ML VIAL IV PRN (09:28)
[2021-09-16 09:42] LABS: BUN Creatinine Ratio 15.9 (10-20); Calcium 8.3 mg/dl (8.5-10.1); Creatinine Clr Calc Pharmacy 53.1 ml/min; Est GFR (African American) 94.6 ml/min; Est GFR (Non-African American) 81.6 ml/min; Potassium 3.6 mmol/L (3.5-5.1)
[2021-09-16 09:56] LABS: Basophilic Stippling 1+; Polychromasia 1+
--- NOTE | 2021-09-16 14:06 | Hospitalist Progress Note ---
Date of Service September 16, 2021 Assessment & Plan (1) Fall: Plan: Per PT ok to return to [facility], cont fall precautions. S/P treatment of a UTI and of acute blood loss anemia requiring transfusions. (2) Leg hematoma: Plan: Patient presenting from [facility] for evaluation after fall and subsequent left knee pain, swelling, bruising In the ED, left knee XR negative for fracture On exam, patient is found to have significant hematoma On Coumadin, INR 3.9->reversed with Vit K and INR 1.4 Holding Plavix and Coumadin with hematoma and Hb drop requiring blood transfusion- resume when indicated Status post hematoma evacuation today, 09/[address] Aldana Wound care per Ortho Activity per Ortho Personal halfway recommended by PT eval Restarted Plavix and warfarin, daily INR (3) Post-operative state: (4) Anemia: Plan: Acute blood loss anemia improved after transfusion. Now stable around 10.1. Continue to trend. There is no overt active bleeding. (5) UTI (urinary tract infection): Plan: urine clx with Ecoli -Rocephin changed to Macrobid (6) Compression fracture: Plan: CT lumbar spine shows Subacute burst type compression fracture of L3 which involves both pedicles. Minimal retropulsion at the level of the superior endplate. Mild subacute inferior endplate compression fracture of L2. Seen by Dr Gonzalez- chronic, asymptomatic and no intervention currently (7) Thrombocytopenia: Plan: Unclear etiology but also with platelets <100 in Apr, then back normal. 107K today. Cont to monitor. Cautious with restart of blood thinners. 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 (9) Paroxysmal SVT (supraventricular tachycardia): Plan: History of, continue metoprolol-warfarin on hold at this time. (10) History of DVT (deep vein thrombosis): Plan: Holding Coumadin as above (11) CAD (coronary artery disease): Plan: chronic, stable, no reports of chest pain Continue statin, Zetia, and beta-danielito Holding Plavix as above (12) HTN (hypertension): Plan: BP around goal, continue amlodipine and metoprolol, cont good pain control efforts post op (13) Hypothyroidism: Plan: chronic, stable. Continue levothyroxine (14) DVT prophylaxis: Plan: SCDs RLE DNR/DNI Dispo-to PCF when cleared by ortho and back on her blood thinners. Anticoagulation followup will be important upon returning home. [facility] [place] [facility] Admission and Anticipated Discharge Date Admission Date: September 11, 2021 Subjective Patient is POD#2 I&D of left knee hematoma. Doing well overall Denies any chest pain shortness of breath or other issues Pain controlled She is weightbearing as tolerated and ambulated to the bathroom without issues today. Plavix and warfarin were restarted. Review of Systems Review of Systems: All systems reviewed negative except as indicated above. Physical Exam Physical Exam: CONSTITUTIONAL: WNWD, vitals as above, generally well- appearing, NAD EYES: normal conjunctivae, no scleral icterus, ENT: external ear and nose normal, MMM NECK: trachea midline, RESPIRATORY: clear to auscultation bilaterally, no crackles, rales or wheezes, normal respiratory effort CARDIOVASCULAR: regular rate and rhythm, S1 and 2 heard without murmurs, gallops or rubs, no JVD, no peripheral edema, CHEST: inspection of chest was normal GASTROINTESTINAL: soft, nontender, ND, no guarding MUSCULOSKELETAL: moving upper extremities with ease, lower extremities are warm and well perfused, left knee in post op state-dressings in place, strength not tested, head is normocephalic and atraumatic, SKIN: warm and dry, NEUROLOGIC: CN 2-12 grossly intact, no sensory deficit, normal cognition, normal speech, no tremor PSYCHIATRIC: alert cooperative and oriented to person, place and time. Results & Data Results & Data ([facility]) Vital Signs (Past 12 Hours) Vital Signs Temp Pulse Resp BP Pulse Ox 09/16/21 07:35 36.8 C 80 16 151/70 H 97 Laboratory Results Short CBC 09/16/21 Range/Units 08:26 WBC 4.52 L (4.8-10.8) K/uL Hgb 10.1 L (12.0-16.0) g/dL Hct 30.9 L (37-47) % Plt Count 107 L (130-400) K/uL BMP 09/16/21 08:26 Sodium 142 Potassium 3.6 Chloride 111 H Carbon Dioxide 24 BUN 11 Creatinine 0.69 Glucose 87 Calcium 8.3 L Medications Administered Current Inpatient Medications Acetaminophen (Acetaminophen 325 Mg Tab) 650 mg PO Q6H [facility] Stop: 10/11/21 17:59 Last Admin: 09/16/21 12:35 Dose: 650 mg Documented by: Amlodipine Besylate (Amlodipine Besylate 5 Mg Tab) [facility] [place] Stop: 10/12/21 08:59 Last Admin: 09/16/21 09:03 Dose: 5 mg Documented by: Atorvastatin Calcium (Atorvastatin 40 Mg Tab) 40 [facility] [place] Stop: 10/12/21 08:59 Last Admin: 09/16/21 09:04 Dose: 40 mg Documented by: Bisacodyl (Bisacodyl 10 Mg Supp) 10 mg [place] DAILY PRN PRN Reason: Constipation Stop: 10/14/21 13:42 Clopidogrel Bisulfate (Clopidogrel Bisulfate 75 Mg Tab) 75 mg PO [facility] Stop: 10/16/21 08:59 Last Admin: 09/16/21 09:27 Dose: 75 mg Documented by: Cyanocobalamin (Cyanocobalamin (B-12) 500 Mcg Tablet) 500 mcg PO [facility] Stop: 10/12/21 08:59 Last Admin: 09/16/21 09:00 Dose: 500 mcg Documented by: Docusate Sodium (Docusate Sodium 100 Mg Cap) 100 mg PO BID [facility] Stop: 10/14/21 20:59 Last Admin: 09/16/21 09:00 Dose: 100 mg Documented by: Ezetimibe (Ezetimibe 10 Mg Tablet) 10 mg PO [facility] Stop: 10/12/21 08:59 Last Admin: 09/16/21 09:02 Dose: 10 mg Documented by: Ferrous Sulfate (Ferrous Sulfate 325 Mg Tab) 325 mg PO BID [facility] Stop: 10/11/21 20:59 Last Admin: 09/16/21 09:01 Dose: 325 mg Documented by: Folic Acid (Folic Acid 1 Mg Tab) 2 mg PO QAM [facility] Stop: 10/12/21 08:59 Last Admin: 09/16/21 09:03 Dose: 2 mg Documented by: Gabapentin (Gabapentin 100 Mg Cap) 200 mg PO TID [facility] Stop: 10/11/21 20:59 Last Admin: 09/16/21 09:01 Dose: 200 mg Documented by: Cefazolin Sodium (Ancef 1000mg) 1,000 mg in 7.5 mls @ 2.5 mls/min IV Q8H [facility] Stop: 09/21/21 20:59 Last Admin: 09/16/21 12:36 Dose: 2.5 mls/min Documented by: Leflunomide (Leflunomide 10 Mg Tab) 20 mg PO QAM [facility] Stop: 10/12/21 08:59 Last Admin: 09/16/21 09:02 Dose: 20 mg Documented by: Levothyroxine Sodium (Levothyroxine Sodium 50 Mcg Tablet) 50 mcg PO DAILYBB [facility] Stop: 10/12/21 06:29 Last Admin: 09/16/21 05:51 Dose: 50 mcg Documented by: Magnesium Hydroxide (Magnesium Hydroxide Susp 30 Ml Udc) 30 ml PO Q6H PRN PRN Reason: Constipation Stop: 10/14/21 13:42 Methotrexate (Methotrexate Sodium 2.5 Mg Tab) 10 mg PO Fr@0900 [facility] Stop: 10/12/21 08:59 Last Admin: 09/12/21 08:45 Dose: 10 mg Documented by: Metoprolol Succinate (Metoprolol Succ 50mg Ext Rel Tab) 50 mg PO BID [facility] Stop: 10/11/21 20:59 Last Admin: 09/16/21 09:04 Dose: 50 mg Documented by: Morphine Sulfate (Morphine Sulfate 4 Mg/Ml 1 Ml Carp\Vial) 3 mg IV Q6H PRN PRN Reason: severe pain Stop: 09/25/21 20:49 Last Admin: 09/14/21 15:18 Dose: 3 mg Documented by: Multivitamins (Multivitamin Tab) 1 tab PO [facility] Stop: 10/15/21 08:59 Last Admin: 09/16/21 09:01 Dose: 1 tab Documented by: Naloxone HCl (Naloxone Hcl 0.4 Mg/1 Ml Vial/Carp) 0.1 mg IV Q5M PRN PRN Reason: Oversedation/Resp Depression Stop: 10/14/21 13:42 Nitrofurantoin Macrocrystals (Nitrofurantoin Monohydrate 100 Mg Cap) 100 mg PO BID [facility] Stop: 09/19/21 08:59 Last Admin: 09/16/21 09:02 Dose: 100 mg Documented by: Ondansetron HCl (Ondansetron Inj 2 Mg/Ml 2 Ml Vial) 4 mg IV Q6H PRN PRN Reason: Nausea And Vomiting Stop: 10/11/21 20:05 Last Admin: 09/16/21 09:28 Dose: 4 mg Documented by: Pantoprazole Sodium (Pantoprazole 40 Mg Tab) 40 mg PO [facility] Stop: 10/12/21 08:59 Last Admin: 09/16/21 09:03 Dose: 40 mg Documented by: Prednisone (Prednisone 5 Mg Tab) 5 mg PO [facility] Stop: 10/12/21 08:59 Last Admin: 09/16/21 09:04 Dose: 5 mg Documented by: Saccharomyces Boulardii (Saccharomyces Boulardii 250 Mg Cap) 250 mg PO [facility] Stop: 10/12/21 08:59 Last Admin: 09/16/21 09:00 Dose: 250 mg Documented by: Tramadol HCl (Tramadol Hcl 50 Mg Tablet) 50 - 100 mg PO Q4H PRN PRN Reason: Pain & Pre PT Stop: 10/14/21 13:42 Last Admin: 09/15/21 22:21 Dose: 100 mg Documented by: Warfarin Sodium (Warfarin Sod 2.5 Mg Tab) 2.5 mg PO DAILY@1600 [facility] Stop: 10/16/21 15:59 (1) Anemia Anemia type: unspecified type Qualified Code(s): D64.9 - Anemia, unspecified (2) HTN (hypertension) Hypertension type: essential hypertension Qualified Code(s): I10 - Essential (primary) hypertension (3) Fall Encounter type: initial encounter Qualified Code(s): W19.XXXA - Unspecified fall, initial encounter
[2021-09-16] MEDS ORDERED: WARFARIN SOD 2.5 MG TAB PO SCH (16:00)
[2021-09-17] MEDS: traMADol HCL 50 MG TABLET PO PRN (03:47)
[2021-09-17] MEDS: ONDANSETRON INJ 2 MG/ML 2 ML VIAL IV PRN (04:22)
[2021-09-17] MEDS: ceFAZolin 1000MG 1,000 MG/7.5 ML SYR IV SCH ×2 (04:26→12:09)
[2021-09-17] MEDS: LEVOTHYROXINE SODIUM 50 MCG TABLET PO SCH (05:59)
[2021-09-17] MEDS: ACETAMINOPHEN 325 MG TAB PO SCH ×2 (06:00→11:17)
[2021-09-17] MEDS: amLODIPine BESYLATE 5 MG TAB PO SCH (08:36)
[2021-09-17] MEDS: CLOPIDOGREL BISULFATE 75 MG TAB PO SCH (08:36)
[2021-09-17] MEDS: MULTIVITAMIN TAB PO SCH (08:37)
[2021-09-17] MEDS: FOLIC ACID 1 MG TAB PO SCH (08:39)
[2021-09-17] MEDS: GABAPENTIN 100 MG CAP PO SCH (08:40)
[2021-09-17] MEDS: LEFLUNOMIDE 10 MG TAB PO SCH (08:40)
[2021-09-17] MEDS: ATORVASTATIN 40 MG TAB PO SCH (08:41)
[2021-09-17] MEDS: DOCUSATE SODIUM 100 MG CAP PO SCH (08:41)
[2021-09-17] MEDS: CYANOCOBALAMIN (B-12) 500 MCG TABLET PO SCH (08:41)
[2021-09-17] MEDS: PANTOprazole 40 MG TAB PO SCH (08:42)
[2021-09-17] MEDS: predniSONE 5 MG TAB PO SCH (08:42)
[2021-09-17] MEDS: SACCHAROMYCES BOULARDII 250 MG CAP PO SCH (08:42)
[2021-09-17] MEDS: FERROUS SULFATE 325 MG TAB PO SCH (08:43)
[2021-09-17] MEDS: NITROFURANTOIN MONOHYDRATE 100 MG CAP PO SCH (08:43)
[2021-09-17] MEDS: METOPROLOL SUCC 50MG EXT REL TAB PO SCH (08:43)
[2021-09-17] MEDS: EZETIMIBE 10 MG TABLET PO SCH (08:43)
[2021-09-17 09:36] LABS: INR 1.9 (0.9-1.1); Prothrombin Time 19.9 Seconds (9.0-12.0)
--- NOTE | 2021-09-17 10:32 | Discharge Summary ---
Date of Service September 17, 2021 Principal Diagnosis Fall Leg hematoma on coumadin s/p acute blood loss anemia E coli UTI Lumbar spine compression fracture (L3) Thrombocytopenia Retinal artery branch occlusion of right eye. Discharge Exam CONSTITUTIONAL: WNWD, vitals as above, generally well-appearing, NAD EYES: normal conjunctivae, no scleral icterus, ENT: external ear and nose normal, MMM NECK: trachea midline, RESPIRATORY: clear to auscultation bilaterally, no crackles, rales or wheezes, normal respiratory effort CARDIOVASCULAR: regular rate and rhythm, S1 and 2 heard without murmurs, gallops or rubs, no JVD, no peripheral edema, CHEST: inspection of chest was normal GASTROINTESTINAL: soft, nontender, ND, no guarding MUSCULOSKELETAL: moving upper extremities with ease, lower extremities are warm and well perfused, left knee in post op state-dressings in place, strength not tested, head is normocephalic and atraumatic, SKIN: warm and dry, NEUROLOGIC: CN 2-12 grossly intact, no sensory deficit, normal cognition, normal speech, no tremor PSYCHIATRIC: alert cooperative and oriented to person, place and time. Discharge Data Allergies Allergy/AdvReac Type Severity Reaction Status Date / Time baclofen Allergy Mild DIZZY Verified 09/11/21 10:24 Penicillins Allergy Mild RASH Verified 09/11/21 10:24 Sulfa (Sulfonamide Allergy Mild HEADACHE Verified 09/11/21 10:24 Antibiotics) Consultations 09/11/21 14:42 Consult Orthopedic Surgery Routine 09/11/21 17:45 Consult Orthopedic Surgery Routine Procedures Performed Operation Date: 09/14/21 09:30 Actual Procedures p Incision and Drainage Left Knee Hematoma (Left) - Fab Aldana DO Ordered Studies 09/11/21 09:18 US venous doppler LE LT Stat 09/11/21 10:13 CT abd pelvis IV con only Stat CT cervical spine wo con Stat CT chest diagnostic w con Stat CT head/brain wo con Stat 09/11/21 12:42 CT lumbar spine wo con Stat Hospital Course (1) Fall: Per PT ok to return to [facility], cont fall precautions. S/P treatment of a UTI and of acute blood loss anemia requiring transfusions. (2) Leg hematoma: Patient presenting from [facility] for evaluation after fall and subsequent left knee pain, swelling, bruising In the ED, left knee XR negative for fracture On exam, patient is found to have significant hematoma On Coumadin, INR 3.9->reversed with Vit K and INR 1.4 Holding Plavix and Coumadin with hematoma and Hb drop requiring blood transfusion- resume when indicated Status post hematoma evacuation today, 09/[address] Aldana Wound care per Ortho Activity per Ortho Personal detention recommended by PT eval Restarted Plavix and warfarin, daily INR (3) Post-operative state: (4) Anemia: Acute blood loss anemia improved after transfusion. Now stable around 10.1. Continue to trend. There is no overt active bleeding. (5) UTI (urinary tract infection): urine clx with Ecoli -Rocephin changed to Macrobid (6) Compression fracture: CT lumbar spine shows Subacute burst type compression fracture of L3 which involves both pedicles. Minimal retropulsion at the level of the superior endplate. Mild subacute inferior endplate compression fracture of L2. Seen by Dr Gonzalez- chronic, asymptomatic and no intervention currently (7) Thrombocytopenia: Unclear etiology but also with platelets <100 in Fe, then back normal. 107K today. Cont to monitor. Cautious with restart of blood thinners. 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 (9) Paroxysmal SVT (supraventricular tachycardia): History of, continue metoprolol-warfarin on hold at this time. (10) History of DVT (deep vein thrombosis): Holding Coumadin as above (11) CAD (coronary artery disease): chronic, stable, no reports of chest pain Continue statin, Zetia, and beta-danielito Holding Plavix as above (12) HTN (hypertension): BP around goal, continue amlodipine and metoprolol, cont good pain control efforts post op (13) Hypothyroidism: chronic, stable. Continue levothyroxine (14) DVT prophylaxis: SCDs RLE DNR/DNI Dispo-to PCF when cleared by ortho and back on her blood thinners. Anticoagulation followup will be important upon returning home. DO Nan Muniz Hospitalist Discharge Plan Discharge Items Patient Disposition: Home - Self-Care Reason For Visit: L KNEE PAIN Discharge Diagnosis: Fall Leg hematoma on coumadin s/p acute blood loss anemia E coli UTI Lumbar spine compression fracture (L3) Thrombocytopenia Retinal artery branch occlusion of right eye. Condition on Discharge: Good Activity: Per Instructions section Non-emergency contact: Primary Care Provider Call non-emergency contact if: you have any medication questions, your symptoms worsen, your pain is not controlled, you have a fever, your wound has increased redness, your wound has increased drainage and your wound pain has increased Follow-up/Referrals: Fab Aldana DO [Surgeon] - (Follow up with Dr. Aldana in 10-14 days from the day of surgery for your first post operative visit to check your wound.) Shea Colbert DO [Outside Practitioners] - (Date & Time 09/24/2021 11:10 AM Provider Shea Colbert DO Department [facility] ) [facility] CARL[facility] MALDONADO [Primary Care Provider] - Diet: Heart Healthy Add Attending Provider Instructions: Please take all medications as instructed on discharge list below. Please follow-up with orthopedics and primary care physician at date/time above. As we reversed your coumadin here, you will need time to become therapeutic again. Please follow-up closely with your anticoagulation clinic to frequently check you INR over the next 1-2 weeks and adjust coumadin dose for goal INR 2-3. It was a pleasure taking care of you! Please call if you have any questions or problems. You can reach a [facility] hospitalist on duty at [facility] 24 hours a day by calling [phone]. Take care of yourself. Zeynep Hale DO [facility] Hospitalist Add Poultry Scientist Provider Instructions: Change dressing daily. If wound remains dry, change dressing every other day. Call the office if you have an increased temperature of 101.5 or greater, increased pain, swelling, redness around the wound, increased drainage. You can be weightbearing as tolerated. Pending Studies at Discharge: No Stand-Alone Forms: [facility] Medications and DC Order Prescriptions: New nitrofurantoin monohyd/m-cryst 100 mg Capsule 100 mg PO BID Qty: 4 RF: 0 Continued atorvastatin 40 mg tablet 40 mg PO QAM RF: 0 metoprolol succinate 50 mg tablet extended release 24 hr 50 mg PO BID RF: 0 prednisone 5 mg Tablet 5 mg PO QAM RF: 0 folic acid 1 mg Tablet 2 mg PO QAM RF: 0 methotrexate sodium 2.5 mg tablet 10 mg PO FR RF: 0 clopidogrel 75 mg tablet 75 mg PO QAM RF: 0 amlodipine [Norvasc] 5 mg Tablet 5 mg PO QAM Qty: 30 RF: 1 pantoprazole 40 mg tablet,delayed release (DR/EC) 40 mg PO QAM RF: 0 ezetimibe 10 mg tablet 10 mg PO QAM RF: 0 leflunomide 20 mg tablet 20 mg PO QAM RF: 0 ferrous sulfate 325 mg (65 mg iron) tablet 325 mg PO BID RF: 0 tramadol 50 mg tablet 50 mg PO BID RF: 0 ondansetron 4 mg tablet,disintegrating 4 mg translingual DAILY PRN (Reason: Nausea) RF: 0 levothyroxine 50 mcg tablet 50 mcg PO QAM RF: 0 multivitamin,yd-cdqg-Qk-FA-min 27-0.4 mg Tablet 1 tab PO QAM RF: 0 Saccharomyces boulardii [Florastor] 250 mg Capsule 250 mg PO QAM RF: 0 cyanocobalamin (vitamin B-12) [Vitamin B-12] 500 mcg Tablet 500 mcg PO QAM RF: 0 warfarin 2.5 mg Tablet See Rx Instructions .ROUTE .COMPLEX RF: 0 gabapentin 100 mg capsule 200 mg PO TID Qty: 0 RF: 0 Discharge Orders: Discharge Order (Routine); Ordered 09/17/21 Ordered By: Zeynep Hale Admission Data Admit Date/Time: 09/11/21 14:04 Attending Provider: Zeynep Hale Admit Provider: Rashmi Da Silva I. Primary [facility] Other Providers: Zackary Hargrove ; Robert Gonzalez
== END 2021-09-17 13:23 | disposition home or self-care (01) | DRG 605 ==
LOC: ED 09:06 → EDINP 14:04 → SUATTDRO 14:04 → 3N 17:11
DX: Y92.89 Other specified places as the place of occurrence of the external cause; E03.9 Hypothyroidism, unspecified; B96.20 Unspecified Escherichia coli [E. coli] as the cause of diseases classified elsewhere; Z88.0 Allergy status to penicillin; I25.10 Atherosclerotic heart disease of native coronary artery without angina pectoris; N39.0 Urinary tract infection, site not specified; M25.562 Pain in left knee; M48.56XA Collapsed vertebra, not elsewhere classified, lumbar region, initial encounter for fracture; Z96.653 Presence of artificial knee joint, bilateral; D62 Acute posthemorrhagic anemia; I47.1 Supraventricular tachycardia; H34.231 Retinal artery branch occlusion, right eye; S80.02XA Contusion of left knee, initial encounter; W19.XXXA Unspecified fall, initial encounter; Z87.891 Personal history of nicotine dependence; Z98.1 Arthrodesis status; Z79.01 Long term (current) use of anticoagulants; N18.30 Chronic kidney disease, stage 3 unspecified; F03.90 Unspecified dementia, unspecified severity, without behavioral disturbance, psychotic disturbance, mood disturbance, and anxiety; Z79.890 Hormone replacement therapy; Z66 Do not resuscitate; Z88.2 Allergy status to sulfonamides; D69.6 Thrombocytopenia, unspecified

== ENCOUNTER 2021-10-08 19:26 | Inpatient (IN) ==
[2021-10-08 20:39] LABS: Basophils % (auto) 1.5 %; Eosinophils # (auto) 0.26 K/uL (0-0.50); Eosinophils % (auto) 3.9 %; Hematocrit (blood only) 30.9 % (34.1-44.9); Hemoglobin 10.4 g/dl (12.0-16.0); Immature Granulocytes # (auto) 0.03 K/uL (0.00-0.02); Immature Granulocytes % (auto) 0.4 %; Lymphocytes # (auto) 1.11 K/uL (1.2-3.4); Lymphocytes % (auto) 16.5 %; Mean Corpuscular Hemoglobin 34.4 pg (25.0-34.0); Mean Corpuscular Hgb Conc 33.7 g/dL (32.0-36.0); Mean Corpuscular Volume 102.3 fL (80.0-100.0); Mean Platelet Volume 10.1 fL (9.4-12.3); Monocytes # (auto) 1.36 K/uL (0.24-0.82); Monocytes % (auto) 20.3 %; Neutrophils # (auto) 3.85 K/uL (1.4-6.5); Neutrophils % (auto) 57.4 %; Platelet Count 162 K/uL (130-400); RDW Coefficient of Variation 18.4 % (11.5-14.5); RDW Standard Deviation 68.6 fL (36.4-46.3); Red Blood Count 3.02 M/uL (3.93-5.22); White Blood Count 6.71 K/ul (4.8-10.8)
[2021-10-08 20:48] LABS: Appearance Urine Cloudy (Clear); Bacteria Urine Automated Negative (Negative); Bilirubin Urine Negative (Negative); Blood Urine 1+ (Negative); Color Urine Yellow; Epithelial Cell Urine Auto >30 /lpf (0-5); Glucose Urine UA Negative (Negative); Ketones Urine 1+ (Negative); Leukocyte Esterase Urine 3+ (Negative); Nitrite Urine Negative (Negative); Protein Urine Negative (Negative); RBC Urine Automated 0-4 /hpf (0-4); Specific Gravity Urine 1.012 (1.000-1.030); Urobilinogen Urine Negative (Negative); WBC Urine Automated >30 /hpf (0-5)
[2021-10-08 21:12] LABS: Albumin Globulin Ratio 1.2 (0.9-2); Albumin Level 3.5 gm/dl (3.4-5.0); BUN Creatinine Ratio 20.3 (10-20); Bilirubin,Total 1.3 mg/dl (0.2-1.0); Calcium 8.3 mg/dl (8.5-10.1); Creatinine Clr Calc Pharmacy 47.2 ml/min; Est GFR (African American) 88.1 ml/min; Globulin 2.9 gm/dl (2.5-4.0); Potassium 3.7 mmol/L (3.5-5.1); Total Protein 6.4 gm/dl (6.0-8.3)
[2021-10-08] MEDS ORDERED: FAMOTIDINE 20MG IV PUSH 20 MG/5 ML SYR IV STA (22:06)
[2021-10-08] MEDS ORDERED: SODIUM CHLORIDE 0.9% 1000ML 1,000 ML IV ONE (22:06)
[2021-10-08] MEDS ORDERED: ONDANSETRON INJ 2 MG/ML 2 ML VIAL IV STA (22:06)
[2021-10-08] MEDS ORDERED: ACETAMINOPHEN 1,000 MG/100 ML VIAL IV STA (22:07)
[2021-10-08 22:29] LABS: INR 3.8 (0.9-1.1); Prothrombin Time 37.7 Seconds (9.0-12.0)
[2021-10-08] MEDS ORDERED: OPTIRAY 320 100ml IV ONE (22:34)
[2021-10-09] MEDS ORDERED: rOPINIRole HCL 1 MG TABLET PO STA (02:08)
[2021-10-09] MEDS ORDERED: ACETAMINOPHEN W/CODEINE #3 1 TAB PO PRN (03:46)
[2021-10-09] MEDS ORDERED: ACETAMINOPHEN 325 MG TAB PO PRN (03:46)
[2021-10-09] MEDS ORDERED: rOPINIRole HCL 1 MG TABLET PO PRN ×2 (03:46→04:28)
[2021-10-09] MEDS ORDERED: POLYETHYLENE (MIRALAX) 17 GM PACK PO PRN (03:46)
[2021-10-09] MEDS ORDERED: NITROGLYCERIN SL 0.4 MG/TAB TAB SL PRN (03:46)
[2021-10-09] MEDS ORDERED: cefTRIAXone SODIUM 1,000 MG in DEXTROSE 5% 50 ML IV SCH (04:00)
--- NOTE | 2021-10-09 04:13 | Emergency Department Note ---
Impression & Plan Pneumonia, Urinary tract infection, Intractable vomiting with nausea, Elevated troponin ED Provider Note NAME: MARCELLA YOUNGBLOOD AGE: 80 SEX: F ARRIVES VIA: Ambulance INFORMANT: Patient ED PROVIDER(S): Home Malloy MD CHIEF COMPLAINT: n/v, referred PLAN: Disposition: Admit MEDICAL DECISION MAKING: The patient is a pleasant 80-year-old woman with a past medical history of chronic heart failure with preserved EF, status post TAVR, CKD, hyperlipidemia, aortic stenosis and arthritis, INA who presents to the emergency department from her long-term facility at [facility] for evaluation of intractable nausea and vomiting over the past several days where she is been unable to keep her medications down. Patient's children arrived to the bedside. They report she also has become weaker and has not been ambulating with her walker as she usually has been. They deny fever, cough, congestion, diarrhea or urinary symptoms though they are concerned as the patient has a history of recurrent UTIs. EKG with ST abnormality however without overt acute ischemia. WBC and platelets within normal limits. H/H similar to prior values. INR is 3.8. Chemistry without metabolic acidosis. LFTs without significant abnormality. Initial high-sensitivity troponin 51, increased from prior however nonspecific. Delta 4-hour high-sensitivity troponin 66, nonspecific. UA appears contaminated however with leuk esterase and WBCs. COVID-19 RNA, AUBREY test was negative. CT of the abdomen pelvis was performed and per preliminary stat rad report dem onstrates previously seen acute/subacute compression fracture. Note is made of small consolidation at the left lung base. Otherwise no acute findings are seen. Given the patient's intractable nausea and vomiting in the setting of suspected pneumonia and possible UTI with increased elevation in troponin we will proceed with admission for further management. Antibiotics per admission team. Case was discussed with Dr. Liu, [facility] hospitalist, who will evaluate the patient for admission. Triage Nursing notes reviewed and agree them. Prior medical records reviewed Vital Signs: reviewed and remarkable for no significant abnormalities Differential diagnosis: Gastroenteritis, food borne illness, infections, appendicitis, diverticulitis, inflammatory bowel disease, obstruction, GI bleed, biliary pathology, volvulus, as well as other pathologies. ER treatment provided: See below. Diagnostics interpreted by me: ECG: Sinus rhythm with occasional PVCs, 96 bpm, LVH, ST and T wave abnormality, no overt ST elevation, QTC 442, QRS 96. Cardiac Monitoring: An order for continuous cardiac monitoring was placed and demonstrated Sinus rhythm with occasional PVCs, 96 bpm. Laboratory studies: See below Imaging studies: See below Consultation(s): Case was discussed with Dr. Liu, [facility] hospitalist, who will evaluate the patient for admission. HPI: The patient is a pleasant 80-year-old woman with a past medical history of chronic heart failure with preserved EF, status post TAVR, CKD, hyperlipidemia, aortic stenosis and arthritis, INA who presents to the emergency department from her long-term facility at [facility] for evaluation of intractable nausea and vomiting over the past several days where she is been unable to keep her medications down. Patient's children arrived to the bedside. They report she also has become weaker and has not been ambulating with her walker as she usually has been. They deny fever, cough, congestion, diarrhea or urinary symptoms though they are concerned as the patient has a history of recurrent UTIs. ROS: See above HPI for pertinent positives & negatives. A total of 10 systems reviewed and were otherwise negative. VITALS:See Below PHYSICAL EXAMINATION: GENERAL: Awake, alert, fatigued/chronically ill-appearing, in no distress HENT: Normocephalic, atraumatic. Oropharynx with dry mucous membranes and otherwise unremarkable. EYES: Normal conjunctiva. Sclera non-icteric. NECK: Supple. No nuchal rigidity. FROM. No JVD. RESPIRATORY: Clear to auscultation. CARDIAC: Regular rate, normal rhythm. Extremities warm and well perfused. Pulses equal. ABDOMEN: Soft, non-distended. No tenderness to palpation. No rebound or guarding. No masses. RECTAL: Deferred. MUSCULOSKELETAL: Chest examination reveals no tenderness. The back is symmetrical on inspection without obvious abnormality. There is no CVA tenderness to palpation. No joint edema. LOWER EXTREMITIES: Calves are equal size bilaterally and non-tender. No edema. No discoloration. NEURO: Normal sensorium. No sensory or motor deficits noted. SKIN: No rash or jaundice noted. Home Malloy MD Past Med/Surg History Medical History Anemia C. difficile colitis Chronic anticoagulation CKD (chronic kidney disease) stage 3, GFR 30-59 ml/min Diverticular disease hx diverticulitis Fall GERD (gastroesophageal reflux disease) HLD (hyperlipidemia) HTN (hypertension) Lumbar disc herniation with radiculopathy Lumbar radiculopathy NSVT (nonsustained ventricular tachycardia) Obstructive sleep apnea WEARS O2 AT 2L AT HS On home oxygen therapy 2L AT HS Rheumatoid arthritis RLS (restless legs syndrome) Severe aortic stenosis prior to TAVR SVT (supraventricular tachycardia) Thrombocytopenia Thrombocytopenia Surgical History H/O colonoscopy H/O eye surgery LEFT History of carpal tunnel surgery RT/LEFT History of esophagogastroduodenoscopy (EGD) History of heart artery stent 03/18/2020-TYLER x 2 to LAD History of lumbar fusion History of tooth extraction History of total knee replacement RT/LEFT S/P CHANNING-BSO S/P TAVR (transcatheter aortic valve replacement) Family History Other Heart disease No family history of adverse response to anesthesia Rheumatoid arthritis Social History Smoking Status: Former smoker Tobacco Type: Cigarettes Second Hand Exposure: Yes (IN THE PAST); Do You Dip or Chew Tobacco: No; Hx Alcohol Use: No Hx Substance Use: No Preferred Language: Tajik Communication Ability: Effective Special Assemblies Supervisor Required: No Beliefs That Will Affect Care: None marital status: / Current Living Situation: Half-Way Current Living Situation Comment: Lives with How many Children do You have: 1 Other Information That Helps Us Care for You: No Feels Safe at Home: Yes Safety Concerns: Feels Safe At This Time Assistive Devices: Denture - Upper, Denture - Lower, Hearing Aid - Bilateral and Walker Allergies Allergies Allergy/AdvReac Type Severity Reaction Status Date / Time baclofen Allergy Mild DIZZY Verified 09/11/21 10:24 Penicillins Allergy Mild RASH Verified 09/11/21 10:24 Sulfa (Sulfonamide Allergy Mild HEADACHE Verified 09/11/21 10:24 Antibiotics) Home Meds Home Medications Medication Instructions Recorded Confirmed atorvastatin 40 mg tablet 40 mg PO QAM 07/01/18 10/09/21 metoprolol succinate 50 mg 50 mg PO BID 07/01/18 10/09/21 tablet,extended release 24 hr folic acid 1 mg tablet 2 mg PO QAM 10/17/19 10/09/21 methotrexate sodium 2.5 mg tablet 10 mg PO FR 11/14/19 10/09/21 clopidogrel 75 mg tablet 75 mg PO QAM 05/09/20 10/09/21 ezetimibe 10 mg tablet 10 mg PO QAM 04/21/21 10/09/21 pantoprazole 40 mg tablet,delayed 40 mg PO QAM 04/21/21 10/09/21 release warfarin 2.5 mg tablet See Rx Instructions .Route .COMPLEX 05/04/21 10/09/21 ferrous sulfate 325 mg (65 mg 325 mg PO BID 08/21/21 10/09/21 iron) tablet leflunomide 20 mg tablet 20 mg PO QAM 08/21/21 10/09/21 tramadol 50 mg tablet 50 mg PO BID 08/21/21 10/09/21 levothyroxine 50 mcg tablet 50 mcg PO QAM 09/03/21 10/09/21 acetaminophen 300 mg-codeine 30 mg 1 tab PO BID PRN Pain 10/09/21 10/09/21 tablet gabapentin 100 mg capsule 100 mg PO BID 10/09/21 10/09/21 hydrochlorothiazide 25 mg tablet 25 tab PO DAILY PRN Edema 10/09/21 10/09/21 prednisone 5 mg PO DAILY 10/09/21 10/09/21 ropinirole 3 mg tablet 3 tab PO HS PRN restless legs 10/09/21 10/09/21 Previous Rx's Medication Instructions Recorded amlodipine 5 mg tablet (Norvasc) 5 mg PO QAM #30 tabs 05/10/20 Results & Data (ED) Vital Signs Vital Signs - 24 hr 10/08/21 19:31 10/08/21 20:57 10/08/21 21:30 Temperature 37.5 C Temperature Source Oral Pulse Rate 88 88 92 H Pulse Rate from SpO2 Sensor 90 91 H Respiratory Rate 20 21 18 Respiratory Effort / Characteristics Non-Labored Spontaneous Respiratory Depth Normal Blood Pressure 167/88 H 158/104 H 135/86 Blood Pressure Mean 114 122 102 Pulse Oximetry 99 94 98 Oxygen Delivery Method Room Air Room Air Room Air Sepsis Recent Fever Within 48 Hours No Sepsis New/Unexplained Change in Mental Status N/A Sepsis Action Taken by Nursing No Action Required 10/08/21 22:00 10/08/21 23:01 10/09/21 00:19 Temperature Temperature Source Pulse Rate 95 H 100 H 85 Pulse Rate from SpO2 Sensor 95 H 101 H 86 Respiratory Rate 22 18 19 Respiratory Effort / Characteristics Respiratory Depth Blood Pressure 140/66 156/79 H 143/80 H Blood Pressure Mean 90 104 101 Pulse Oximetry 98 94 98 Oxygen Delivery Method Room Air Room Air Room Air Sepsis Recent Fever Within 48 Hours Sepsis New/Unexplained Change in Mental Status Sepsis Action Taken by Nursing 10/09/21 02:02 Temperature Temperature Source Pulse Rate 82 Pulse Rate from SpO2 Sensor 81 Respiratory Rate 24 Respiratory Effort / Characteristics Respiratory Depth Blood Pressure 169/68 H Blood Pressure Mean 101 Pulse Oximetry 96 Oxygen Delivery Method Room Air Sepsis Recent Fever Within 48 Hours Sepsis New/Unexplained Change in Mental Status Sepsis Action Taken by Nursing Laboratory Data Attestation: I reviewed the patient's lab results. Result diagrams: 10/09/21 05:28 10/09/21 05:28 Lab Results 10/08/21 10/08/21 10/08/21 Range/Units 20:00 20:20 20:20 WBC 6.71 (4.8-10.8) K/ul RBC 3.02 L (3.93-5.22) M/uL Hgb 10.4 L (12.0-16.0) g/dl Hct 30.9 L (34.1-44.9) % MCV 102.3 H (80.0-100.0) fL MCH 34.4 H (25.0-34.0) pg MCHC 33.7 (32.0-36.0) g/dL RDW Std Deviation 68.6 H (36.4-46.3) fL RDW Coeff of Keila 18.4 H (11.5-14.5) % Plt Count 162 (130-400) K/uL MPV 10.1 (9.4-12.3) fL Immature Gran % (Auto) 0.4 % Neut % (Auto) 57.4 % Lymph % (Auto) 16.5 % [place] % (Auto) 20.3 % Eos % (Auto) 3.9 % Baso % (Auto) 1.5 % Neut # (Auto) 3.85 (1.4-6.5) K/uL Lymph # (Auto) 1.11 L (1.2-3.4) K/uL [place] # (Auto) 1.36 H (0.24-0.82) K/uL Eos # (Auto) 0.26 (0-0.50) K/uL Baso # (Auto) 0.10 (0-0.2) K/uL Immature Gran # (Auto) 0.03 H (0.00-0.02) K/uL PT 37.7 H (9.0-12.0) Seconds INR 3.8 H (0.9-1.1) Sodium 136 (136-145) mmol/L Potassium 3.7 (3.5-5.1) mmol/L Chloride 103 (98-107) mmol/L Carbon Dioxide 22 (21-32) mmol/L Anion Gap 11 (3-11) BUN 15 (6-23) mg/dl Creatinine 0.74 (0.6-1.2) mg/dl Est Cr Clr Drug Dosing 47.2 ml/min Est GFR ( Amer) 88.1 ml/min Est GFR (Non-Af Amer) 76.0 ml/min BUN/Creatinine Ratio 20.3 H (10-20) Glucose 84 (70-99(Fasting)) mg/dl Calcium 8.3 L (8.5-10.1) mg/dl Total Bilirubin 1.3 H (0.2-1.0) mg/dl AST 37 (13-39) U/L ALT 15 (7-52) U/L Alkaline Phosphatase 106 H (34-104) U/L Troponin I High Sens (0-14) pg/ml Total Protein 6.4 (6.0-8.3) gm/dl Albumin 3.5 (3.4-5.0) gm/dl Globulin 2.9 (2.5-4.0) gm/dl Albumin/Globulin Ratio 1.2 (0.9-2) Urine Color Urine Appearance (Clear) Urine pH (4.5-7.5) Ur Specific [place] (1.000-1.030) Urine Protein (Negative) Urine Glucose (UA) (Negative) Urine Ketones (Negative) Urine Blood (Negative) Urine Nitrite (Negative) Urine Bilirubin (Negative) Urine Urobilinogen (Negative) Ur Leukocyte Esterase (Negative) Urine WBC (Auto) (0-5) /hpf Urine RBC (Auto) (0-4) /hpf U Hyaline Cast (Auto) (0-5) /lpf U Epithel Cells (Auto) (0-5) /lpf Urine Bacteria (Auto) (Negative) SARS-CoV-2, RNA, NAAT (NEGATIVE) 10/08/21 10/08/21 10/08/21 Range/Units 20:20 20:30 20:50 WBC (4.8-10.8) K/ul RBC (3.93-5.22) M/uL Hgb (12.0-16.0) g/dl Hct (34.1-44.9) % MCV (80.0-100.0) fL MCH (25.0-34.0) pg MCHC (32.0-36.0) g/dL RDW Std Deviation (36.4-46.3) fL RDW Coeff of Keila (11.5-14.5) % Plt Count (130-400) K/uL MPV (9.4-12.3) fL Immature Gran % (Auto) % Neut % (Auto) % Lymph % (Auto) % [place] % (Auto) % Eos % (Auto) % Baso % (Auto) % Neut # (Auto) (1.4-6.5) K/uL Lymph # (Auto) (1.2-3.4) K/uL [place] # (Auto) (0.24-0.82) K/uL Eos # (Auto) (0-0.50) K/uL Baso # (Auto) (0-0.2) K/uL Immature Gran # (Auto) (0.00-0.02) K/uL PT (9.0-12.0) Seconds INR (0.9-1.1) Sodium (136-145) mmol/L Potassium (3.5-5.1) mmol/L Chloride (98-107) mmol/L Carbon Dioxide (21-32) mmol/L Anion Gap (3-11) BUN (6-23) mg/dl Creatinine (0.6-1.2) mg/dl Est Cr Clr Drug Dosing ml/min Est GFR ( Amer) ml/min Est GFR (Non-Af Amer) ml/min BUN/Creatinine Ratio (10-20) Glucose (70-99(Fasting)) mg/dl Calcium (8.5-10.1) mg/dl Total Bilirubin (0.2-1.0) mg/dl AST (13-39) U/L ALT (7-52) U/L Alkaline Phosphatase (34-104) U/L Troponin I High Sens 51.1 H* D (0-14) pg/ml Total Protein (6.0-8.3) gm/dl Albumin (3.4-5.0) gm/dl Globulin (2.5-4.0) gm/dl Albumin/Globulin Ratio (0.9-2) Urine Color Yellow Urine Appearance Cloudy A (Clear) Urine pH 6.0 (4.5-7.5) Ur Specific [place] 1.012 (1.000-1.030) Urine Protein Negative (Negative) Urine Glucose (UA) Negative (Negative) Urine Ketones 1+ H (Negative) Urine Blood 1+ H (Negative) Urine Nitrite Negative (Negative) Urine Bilirubin Negative (Negative) Urine Urobilinogen Negative (Negative) Ur Leukocyte Esterase 3+ H (Negative) Urine WBC (Auto) >30 H (0-5) /hpf Urine RBC (Auto) 0-4 (0-4) /hpf U Hyaline Cast (Auto) 1-5 (0-5) /lpf U Epithel Cells (Auto) >30 H (0-5) /lpf Urine Bacteria (Auto) Negative (Negative) SARS-CoV-2, RNA, NAAT NEGATIVE (NEGATIVE) 10/09/21 Range/Units 00:25 WBC (4.8-10.8) K/ul RBC (3.93-5.22) M/uL Hgb (12.0-16.0) g/dl Hct (34.1-44.9) % MCV (80.0-100.0) fL MCH (25.0-34.0) pg MCHC (32.0-36.0) g/dL RDW Std Deviation (36.4-46.3) fL RDW Coeff of Keila (11.5-14.5) % Plt Count (130-400) K/uL MPV (9.4-12.3) fL Immature Gran % (Auto) % Neut % (Auto) % Lymph % (Auto) % [place] % (Auto) % Eos % (Auto) % Baso % (Auto) % Neut # (Auto) (1.4-6.5) K/uL Lymph # (Auto) (1.2-3.4) K/uL [place] # (Auto) (0.24-0.82) K/uL Eos # (Auto) (0-0.50) K/uL Baso # (Auto) (0-0.2) K/uL Immature Gran # (Auto) (0.00-0.02) K/uL PT (9.0-12.0) Seconds INR (0.9-1.1) Sodium (136-145) mmol/L Potassium (3.5-5.1) mmol/L Chloride (98-107) mmol/L Carbon Dioxide (21-32) mmol/L Anion Gap (3-11) BUN (6-23) mg/dl Creatinine (0.6-1.2) mg/dl Est Cr Clr Drug Dosing ml/min Est GFR ( Amer) ml/min Est GFR (Non-Af Amer) ml/min BUN/Creatinine Ratio (10-20) Glucose (70-99(Fasting)) mg/dl Calcium (8.5-10.1) mg/dl Total Bilirubin (0.2-1.0) mg/dl AST (13-39) U/L ALT (7-52) U/L Alkaline Phosphatase (34-104) U/L Troponin I High Sens 66.0 H* D (0-14) pg/ml Total Protein (6.0-8.3) gm/dl Albumin (3.4-5.0) gm/dl Globulin (2.5-4.0) gm/dl Albumin/Globulin Ratio (0.9-2) Urine Color Urine Appearance (Clear) Urine pH (4.5-7.5) Ur Specific [place] (1.000-1.030) Urine Protein (Negative) Urine Glucose (UA) (Negative) Urine Ketones (Negative) Urine Blood (Negative) Urine Nitrite (Negative) Urine Bilirubin (Negative) Urine Urobilinogen (Negative) Ur Leukocyte Esterase (Negative) Urine WBC (Auto) (0-5) /hpf Urine RBC (Auto) (0-4) /hpf U Hyaline Cast (Auto) (0-5) /lpf U Epithel Cells (Auto) (0-5) /lpf Urine Bacteria (Auto) (Negative) SARS-CoV-2, RNA, NAAT (NEGATIVE) Administered Medications Amlodipine Besylate (A[facility]odipine Besylate 5 Mg Tab) [facility]: 11/08/21 08:59 Last Admin: 10/09/21 09:56 Dose: 5 mg Documented By: RRR Atorvastatin Calcium (Atorvastatin 40 Mg Tab) 40 mg PO QAM [facility] Stop: 11/08/21 08:59 Last Admin: 10/09/21 09:56 Dose: 40 mg Documented By: RRR Clopidogrel Bisulfate (Clopidogrel Bisulfate 75 Mg Tab) [facility] Stop: 11/08/21 08:59 Last Admin: 10/09/21 09:56 Dose: 75 mg Documented By: RRR Ezetimibe (Ezetimibe 10 Mg Tablet) 10 mg PO [facility] Stop: 11/08/21 08:59 Last Admin: 10/09/21 09:56 Dose: 10 mg Documented By: RRR Ferrous Sulfate (Ferrous Sulfate 325 Mg Tab) 325 mg PO BID [facility] Stop: 11/08/21 08:59 Last Admin: 10/09/21 09:56 Dose: 325 mg Documented By: RRR Folic Acid (Folic Acid 1 Mg Tab) [facility] Stop: 11/08/21 08:59 Last Admin: 10/09/21 09:57 Dose: 2 mg Documented By: RRR Gabapentin (Gabapentin 100 Mg Cap) 100 mg PO BID [facility] Stop: 11/08/21 08:59 Last Admin: 10/09/21 09:57 Dose: 100 mg Documented By: RRR Ceftriaxone Sodium 1,000 mg/ (Dextrose) 60 mls @ 120 mls/hr IV Q24H [facility]; Protocol Stop: 10/19/21 03:59 Last Infusion: 10/09/21 05:30 Dose: 0 mls/hr Documented By: Admin: 10/09/21 04:51 Dose: 120 mls/hr Documented By: ED Doxycycline Hyclate 100 mg/ (Dextrose) 110 mls @ 50 mls/hr IV Q12H [facility] Stop: 10/16/21 04:59 Last Admin: 10/09/21 17:15 Dose: 50 mls/hr Documented By: Infusion: 10/09/21 07:37 Dose: 0 mls/hr Documented By: Admin: 10/09/21 05:22 Dose: 50 mls/hr Documented By: ED Levothyroxine Sodium (Levothyroxine Sodium 50 Mcg Tablet) 50 mcg PO DAILYBB STEPHANIE Stop: 11/08/21 06:29 Last Admin: 10/09/21 06:23 Dose: 50 mcg Documented By: ED Metoprolol Succinate (Metoprolol Succ 50mg Ext Rel Tab) 50 mg PO BID [facility] Stop: 11/08/21 08:59 Last Admin: 10/09/21 09:57 Dose: 50 mg Documented By: RRR Ondansetron HCl (Ondansetron Inj 2 Mg/Ml 2 Ml Vial) 4 mg IV Q6H PRN PRN Reason: Nausea Stop: 11/08/21 03:45 Last Admin: 10/09/21 17:17 Dose: 4 mg Documented By: Admin: 10/09/21 11:07 Dose: 4 mg Documented By: FILIPE Pantoprazole Sodium (Pantoprazole 40 Mg Tab) 40 mg PO QAM [facility]PH[facility]IE Stop: 11/08/21 08:59 Last Admin: 10/09/21 10:02 Dose: 40 mg Documented By: FILIPE Prednisone (Prednisone 5 Mg Tab) 5 mg PO DAILY [facility]IE Stop: 11/08/21 08:59 Last Admin: 10/09/21 10:02 Dose: 5 mg Documented By: RRR Discontinued Medications Sodium Chloride (Nss 1000ml) 1,000 mls @ 999 mls/hr IV .Q1H1M ONE Stop: 10/08/21 23:06 Last Infusion: 10/08/21 23:23 Dose: 0 mls/hr Documented By: Admin: 10/08/21 22:18 Dose: 999 mls/hr Documented By: MELITA Famotidine (Pepcid 20mg Iv Push) 20 mg in 5 mls @ 2.5 mls/min IV NOW STA Stop: 10/08/21 22:07 Last Admin: 10/08/21 22:16 Dose: 2.5 mls/min Documented By: MELITA Acetaminophen (Ofirmev) 1,000 mg in 100 mls @ 400 mls/hr IV NOW STA Stop: 10/08/21 22:21 Last Infusion: 10/08/21 22:45 Dose: 0 mls/hr Documented By: Admin: 10/08/21 22:18 Dose: 400 mls/hr Documented By: MELITA Ioversol (Optiray 320 100ml) 94 ml IV ONCE ONE Stop: 10/08/21 22:35 Last Admin: 10/08/21 22:36 Dose: 94 ml Documented By: BALBIR Ondansetron HCl (Ondansetron Inj 2 Mg/Ml 2 Ml Vial) 4 mg IV NOW STA Stop: 10/08/21 22:07 Last Admin: 10/08/21 22:13 Dose: 4 mg Documented By: MELITA Potassium Chloride (Potassium Chloride Crtab 20 Meq Tabcr) 40 meq PO Q6H STEPHANIE Stop: 10/09/21 14:31 Last Admin: 10/09/21 11:36 Dose: Not Given Documented By: FILIPE Potassium Chloride (Potassium Chloride Pwd 20 Meq Pack) 40 meq PO Q6H STEPHANIE Stop: 10/09/21 17:16 Last Admin: 10/09/21 17:15 Dose: 40 meq Documented By: RRKimber Admin: 10/09/21 12:19 Dose: 40 meq Documented By: FILIPE Ropinirole HCl (Ropinirole Hcl 1 Mg Tablet) 3 mg PO NOW STA Stop: 10/09/21 02:09 Last Admin: 10/09/21 02:24 Dose: 3 mg Documented By: MELITA Imaging Data Radiologist's Impression: Abdomen/Pelvis CT 10/08/21 22:06 CT SCAN OF THE ABDOMEN AND PELVIS WITH IV CONTRAST CLINICAL HISTORY: Nausea and vomiting COMPARISON STUDY: Abdominal CT dated 09/11/2021. TECHNIQUE: Following the IV administration of 94 cc of Optiray 320, CT scan of the abdomen and pelvis is performed from the lung bases to the proximal femora. Images are reviewed in the axial, sagittal, and coronal planes. IV contrast was administered without complication. A dose lowering technique was utilized adher ing to the principles of ALARA. The examination is degraded by streak artifact from metallic spinal hardware. FINDINGS: Lung bases: There is evidence of previous aortic valve surgery. The heart is enlarged and without pericardial effusion. A fat-containing Bochdalek hernia is noted at the right lung base. Fibrotic change at both lung bases is similar to previous. There is no airspace consolidation typical for pneumonia or pleural effusion. Presumed round atelectasis at the left lung base is unchanged from prior studies. A small hiatal hernia is noted. Liver: The contrast-enhanced liver is normal in size, contour, and attenuation. There is no intrahepatic biliary ductal dilatation. The hepatic veins and portal veins are patent. Gallbladder: Contracted. Spleen: Normal in size and attenuation. There are calcified splenic granulomas. Pancreas: Moderately atrophic and grossly unremarkable. Adrenal glands: Unremarkable. Kidneys: The contrast enhanced kidneys demonstrate cortical atrophy and are without hydronephrosis. The kidneys enhance symmetrically. There are numerous bilateral nonobstructing renal calculi which measure up to 5 mm. A circumaortic left renal vein is incidentally noted. Abdominal vasculature: The abdominal aorta is normal in course and caliber noting advanced atherosclerotic calcification. Bowel: There is mild colonic diverticulosis with no CT evidence of acute diverticulitis. No bowel obstruction is seen. The appendix is well-visualized and normal. Peritoneum: There is no intraperitoneal free air or abdominal ascites. Lymphadenopathy: None. Pelvic viscera: The bladder wall is normal as visualized. The uterus is surgical ly absent. No adnexal lesion is seen. Skeletal structures: The skeletal structures are osteopenic. There are 6 lumbar type vertebral bodies. There is advanced lumbosacral spondylosis with postoperative change from L4-S1 spinal fusion. There is a subacute burst type compression fracture of L3 (labeled L2 on prior examinations). Fracture involves both pedicles. There is also a subacute inferior endplate compression fracture of L2. No lytic or blastic lesions are seen. There is chronic posttraumatic deformity of the sacrum. IMPRESSION: 1. No acute infectious or inflammatory findings are seen in the abdomen or pelvis. 2. Subacute fractures of the lumbar spine are unchanged. 3. Bilateral nephrolithiasis. 4. Cardiomegaly. 5. Additional findings as above. ACT 112: Negative or not required by law. Electronically signed by: Vitaliy Tate M.D. 10/09/2021 8:18 AM [facility] Preliminary Findings Only See Final Report For Complete Findings CT ABDOMEN & PELVIS With Contrast: There is a small consolidation at the left lung base. There is an aortic valve stent placed. There is an acute/subacute two column fracture of the L2 vertebral body with fractures extending into the pedicles and single column inferior endplate fracture of the L1 vertebral body. These fractures are amenable to vertebroplasty or kyphoplasty. No evidence of acute intra-abdominal pathology. The gallbladder is decompressed. Advanced atrophy of the pancreas. The common bile duct is normal. Bilateral nephrolithiasis. No evidence of hydronephrosis. Diverticulosis of the sigmoid colon. Status post hysterectomy. No evidence of appendicitis. Moderate to heavily calcified atherosclerotic disease of the aorta and iliac arteries. Status post posterior decompression and fusion of L3-S1. Comparison made to prior CT scan of the abdomen and pelvis from September 11, 2021. Radiologist: Susi Mike MD Study ready at 22:48 and initial results transmitted at 23:10 Discharge Plan Visit Data Chief Complaint: Back Injury/Pain ED Provider: Home Malloy Discharge Problem: Pneumonia, Urinary tract infection, Intractable vomiting with nausea, Elevated troponin Patient Disposition: Admitted As Inpatient Discharge Instructions Interventions: ED Discharge Assessment Last Done: 10/09/21 03:14
[2021-10-09] MEDS: DOXYCYCLINE HYCLATE 100 MG in DEXTROSE 5% 100 ML IV SCH ×2 (05:22→17:15)
--- NOTE | 2021-10-09 05:48 | History and Physical Report ---
DATE OF ADMISSION: 10/09/2021. CHIEF COMPLAINT: Nausea and vomiting. 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 The patient has been already on Plavix, Coumadin, and statin. The patient lives at [facility]. Was recently in the hospital for fall and leg hematoma. Coumadin and Plavix were held status post hematoma evacuation on 09/14/2021 by ortho. Received PRBC transfusion. Treated with Rocephin for E. coli and discharged on Macrobid to complete the course and CT of lumbar spine showed subacute burst-type compression fracture of L3. No intervention was done and the patient was discharged back to [facility]. The patient today comes back because of nausea, vomiting. The patient says she could not take any pills. Complains of chronic back pain and also complains of left knee pain and some small bruise there. She says she ambulates with a walker. Denies any chest pain, no shortness of breath. She says she is eating okay. No cough, no nausea, no headache, no runny nose, no sore throat, no abdominal pain. Denies any diarrhea or constipation. Normal bladder movements. Tried to call [facility], was not able to reach. In the ER, she was found to have UTI and possible pneumonia. ALLERGIES: BACLOFEN, PENICILLIN, SULFA ANTIBIOTICS. PAST MEDICAL HISTORY: As mentioned above. PAST SURGICAL HISTORY: Left knee arthroplasty, right knee arthroplasty, bilateral carpal tunnel surgery, colonoscopy, right and left cardiac catheterization, EGDs, lumbar hemilaminectomy in 2014, aortic valve percutaneous replacement, total abdominal hysterectomy with removal of tubes. MEDICATIONS: The patient is on acetaminophen/codeine 1 tablet p.o. b.i.d. p.r.n., Norvasc 5 mg p.o. a.m., atorvastatin 40 mg p.o. a.m., Plavix 75 mg p.o. a.m., ezetimibe 10 mg p.o. a.m., ferrous sulfate 325 mg p.o. b.i.d., folic acid 2 mg p.o. a.m., gabapentin 100 mg p.o. b.i.d., hydrochlorothiazide 25 mg p.o. daily p.r.n., leflunomide 20 mg p.o. a.m., levothyroxine 50 mcg p.o. a.m., methotrexate 10 mg p.o. on Wednesday, metoprolol succinate 50 mg p.o. b.i.d., Protonix 40 mg p.o. a.m., prednisone 5 mg p.o. daily, propranolol 3 tablets p.o. at bedtime p.r.n., tramadol 50 mg p.o. b.i.d., warfarin as directed. FAMILY HISTORY: Significant for brother has rheumatoid arthritis, sister has rheumatoid arthritis, father has CABG, maternal grandfather has lung disorder. SOCIAL HISTORY: . Former smoker, quit in 1970, smoked 1 pack a day for 10 years. No alcohol use. No drug use. REVIEW OF SYSTEMS: As per HPI. Rest of the review of systems is negative. PHYSICAL EXAMINATION: GENERAL: The patient is old and frail, not in acute distress. VITAL SIGNS: Temperature 37.5, pulse 85, respiratory rate 19, blood pressure 143/80, oxygen 98% on room air. HEENT: Pupils equal, round and reactive to light. Oral mucosa moist. NECK: No JVD. No neck masses. CARDIOVASCULAR: S1 and S2 heard. Regular rate and rhythm. No murmur, no gallop. RESPIRATORY SYSTEM: Normal AP diameter. No accessory muscle use. No wheezing, no crackles. ABDOMEN: Soft, bowel sounds present, nontender, no distention. CENTRAL NERVOUS SYSTEM: Alert and oriented. Speech is clear. No facial droop. Obeys simple commands. Moves extremities. EXTREMITIES: No edema, no erythema seen. Slight bruise seen on the left knee site. LABORATORY DATA: WBC 6.7, hemoglobin 10.4, hematocrit 30.9, platelets 162. PTT is 37.7, INR 3.8. Sodium 136, potassium 3.7, chloride 103, bicarbonate 22, BUN 15, creatinine 0.7, serum glucose 84, total bilirubin 1.3, AST 37, ALT 15, alkaline phosphatase 106. Troponin I high sensitivity 66. Urinalysis, +3 leukocyte esterase. SARS-CoV-2 rapid test negative. IMAGING DATA: CT of abdomen and pelvis, preliminary report, possible left lower lobe pneumonia. ASSESSMENT AND PLAN: This is an 80-year-old female presents with nausea, vomiting and found to have urinary tract infection and possible pneumonia. 1. Nausea, vomiting: Will be placed on gentle fluids and clear liquid diet for now and follow the final report of the CT abdomen and pelvis. 2. Urinary tract infection: Possible cause of her nausea, vomiting. Currently empirically on Rocephin. Follow the cultures. Follow the response. 3. Possible pneumonia on the CAT scan of the abdomen and pelvis on the left lower lobe: Will get a chest x-ray, PA and lateral. Was empirically started on Rocephin and doxycycline. Follow the response. 4. History of rheumatoid arthritis: Continue prednisone. Holding leflunomide and methotrexate while the patient is getting treated for urinary tract infection and pneumonia. 5. History of paroxysmal supraventricular tachycardia: On metoprolol. 6. History of deep venous thrombosis and pulmonary embolism: On Coumadin. Follow PT/INR. 7. History of coronary artery disease: Stable. Continue statin, Zetia, beta danielito, and Plavix. 8. Hypertension: Continue amlodipine and metoprolol. Monitor the blood pressure. 9. History of hypothyroidism: Continue Synthroid. 10. Restless legs syndrome: Continue ropinirole. 11. Deep venous thrombosis prophylaxis: On Coumadin. Follow PT/INR. CODE STATUS: Full code for now. DISPOSITION: Admit to [facility]. PT/OT prior to discharge. Social service to help with discharge planning. Job ID: [id number] [facility]
[2021-10-09 06:09] LABS: Basophils # (auto) 0.06 K/uL (0-0.2); Basophils % (auto) 1.2 %; Eosinophils # (auto) 0.22 K/uL (0-0.50); Eosinophils % (auto) 4.3 %; Hematocrit (blood only) 28.8 % (34.1-44.9); Hemoglobin 9.5 g/dl (12.0-16.0); Immature Granulocytes # (auto) 0.03 K/uL (0.00-0.02); Immature Granulocytes % (auto) 0.6 %; Lymphocytes # (auto) 0.79 K/uL (1.2-3.4); Lymphocytes % (auto) 15.5 %; Mean Corpuscular Hemoglobin 33.9 pg (25.0-34.0); Mean Corpuscular Volume 102.9 fL (80.0-100.0); Mean Platelet Volume 9.9 fL (9.4-12.3); Monocytes % (auto) 19.6 %; Neutrophils # (auto) 2.99 K/uL (1.4-6.5); Neutrophils % (auto) 58.8 %; Platelet Count 141 K/uL (130-400); RDW Standard Deviation 68.4 fL (36.4-46.3); White Blood Count 5.09 K/ul (4.8-10.8)
[2021-10-09 06:15] LABS: INR 3.4 (0.9-1.1)
[2021-10-09 06:22] LABS: Troponin I High Sensitivity 76.2 pg/ml (0-14)
[2021-10-09] MEDS: LEVOTHYROXINE SODIUM 50 MCG TABLET PO SCH (06:23)
[2021-10-09 06:24] LABS: BUN Creatinine Ratio 20.3 (10-20); Calcium 7.5 mg/dl (8.5-10.1); Creatinine Clr Calc Pharmacy 54.5 ml/min; Est GFR (Non-African American) 83.7 ml/min; Magnesium 1.8 mg/dl (1.7-2.4); Potassium 3.2 mmol/L (3.5-5.1)
--- NOTE | 2021-10-09 08:19 | CT Scan Report ---
CT SCAN OF THE ABDOMEN AND PELVIS WITH IV CONTRAST CLINICAL HISTORY: Nausea and vomiting COMPARISON STUDY: Abdominal CT dated 09/11/2021. TECHNIQUE: Following the IV administration of 94 cc of Optiray 320, CT scan of the abdomen and pelvi s is performed from the lung bases to the proximal femora. Images are reviewed in the axial, sagittal , and coronal planes. IV contrast was administered without complication. A dose lowering technique wa s utilized adhering to the principles of ALARA. The examination is degraded by streak artifact from m etallic spinal hardware. FINDINGS: Lung bases: There is evidence of previous aortic valve surgery. The heart is enlarged and without per icardial effusion. A fat-containing Bochdalek hernia is noted at the right lung base. Fibrotic change at both lung bases is similar to previous. There is no airspace consolidation typical for pneumonia or pleural effusion. Presumed round atelectasis at the left lung base is unchanged from prior studies . A small hiatal hernia is noted. Liver: The contrast-enhanced liver is normal in size, contour, and attenuation. There is no intrahepa tic biliary ductal dilatation. The hepatic veins and portal veins are patent. Gallbladder: Contracted. Spleen: Normal in size and attenuation. There are calcified splenic granulomas. Pancreas: Moderately atrophic and grossly unremarkable. Adrenal glands: Unremarkable. Kidneys: The contrast enhanced kidneys demonstrate cortical atrophy and are without hydronephrosis. T he kidneys enhance symmetrically. There are numerous bilateral nonobstructing renal calculi which marco a sure up to 5 mm. A circumaortic left renal vein is incidentally noted. Abdominal vasculature: The abdominal aorta is normal in course and caliber noting advanced atheroscle rotic calcification. Bowel: There is mild colonic diverticulosis with no CT evidence of acute diverticulitis. No bowel obs truction is seen. The appendix is well-visualized and normal. Peritoneum: There is no intraperitoneal free air or abdominal ascites. Lymphadenopathy: None. Pelvic viscera: The bladder wall is normal as visualized. The uterus is surgically absent. No adnexal lesion is seen. Skeletal structures: The skeletal structures are osteopenic. There are 6 lumbar type vertebral bodies . There is advanced lumbosacral spondylosis with postoperative change from L4-S1 spinal fusion. There is a subacute burst type compression fracture of L3 (labeled L2 on prior examinations). Fracture inv olves both pedicles. There is also a subacute inferior endplate compression fracture of L2. No lytic or blastic lesions are seen. There is chronic posttraumatic deformity of the sacrum. IMPRESSION: 1. No acute infectious or inflammatory findings are seen in the abdomen or pelvis. 2. Subacute fractures of the lumbar spine are unchanged. 3. Bilateral nephrolithiasis. 4. Cardiomegaly. 5. Additional findings as above. ACT 112: Negative or not required by law. Electronically signed by: Vitaliy Tate M.D. 10/09/2021 8:18 AM
[2021-10-09] MEDS ORDERED: POTASSIUM CHLORIDE CRTAB 20 MEQ TABCR PO SCH (08:30)
--- NOTE | 2021-10-09 08:43 | XRay Report ---
XR chest 2V PA/lateral HISTORY: Pneumonia. Follow-up. COMPARISON: Chest CT 09/11/2021. FINDINGS: Small focal density within the left lung base persists. This favors the chronic pleural thi ckening/scarring seen on the prior studies. No pneumothorax. No pleural effusions. The heart is mildl y enlarged. An aortic valve stent is again noted. No new focal lung consolidations to suggest pneumon ia. No evidence for pulmonary edema. IMPRESSION: No significant change compared to the prior study. No acute process. ACT 112: Negative or not required by law. Electronically signed by: João Raymond M.D. 10/09/2021 8:41 AM
[2021-10-09] MEDS ORDERED: CLOPIDOGREL BISULFATE 75 MG TAB PO SCH (09:00)
[2021-10-09] MEDS: FERROUS SULFATE 325 MG TAB PO SCH ×2 (09:56→19:54)
[2021-10-09] MEDS: EZETIMIBE 10 MG TABLET PO SCH (09:56)
[2021-10-09] MEDS: ATORVASTATIN 40 MG TAB PO SCH (09:56)
[2021-10-09] MEDS: amLODIPine BESYLATE 5 MG TAB PO SCH (09:56)
[2021-10-09] MEDS: FOLIC ACID 1 MG TAB PO SCH (09:57)
[2021-10-09] MEDS: GABAPENTIN 100 MG CAP PO SCH ×2 (09:57→19:55)
[2021-10-09] MEDS: METOPROLOL SUCC 50MG EXT REL TAB PO SCH ×2 (09:57→19:55)
[2021-10-09] MEDS: PANTOprazole 40 MG TAB PO SCH (10:02)
[2021-10-09] MEDS: predniSONE 5 MG TAB PO SCH (10:02)
[2021-10-09] MEDS: ONDANSETRON INJ 2 MG/ML 2 ML VIAL IV PRN ×2 (11:07→17:17)
[2021-10-09] MEDS: POTASSIUM CHLORIDE PWD 20 MEQ PACK PO SCH ×2 (12:19→17:15)
--- NOTE | 2021-10-09 12:29 | Electrocardiogram Report ---
Test Reason : Blood Pressure : / mmHG Vent. Rate : 096 BPM Atrial Rate : 096 BPM P-R Int : 208 ms QRS Dur : 096 ms QT Int : 350 ms P-R-T Axes : 054 -55 191 degrees QTc Int : 442 ms Sinus rhythm with occasional Premature ventricular complexes Left axis deviation Moderate voltage criteria for LVH, may be normal variant possible Inferior infarct , age undetermined Abnormal ECG When compared with ECG of 11-SEP-2021 21:41, Premature ventricular complexes are now Present Nonspecific T wave abnormality now evident in Inferior leads T wave inversion now evident in Anterolateral leads Confirmed by Zackary Mandel ([id number]) on 10/09/2021 12:29:06 PM Referred By: [facility] Confirmed By:Jd Mandel
--- NOTE | 2021-10-09 12:33 | Electrocardiogram Report ---
Test Reason : Blood Pressure : / mmHG Vent. Rate : 089 BPM Atrial Rate : 089 BPM P-R Int : 202 ms QRS Dur : 100 ms QT Int : 404 ms P-R-T Axes : 055 -56 085 degrees QTc Int : 491 ms Normal sinus rhythm Left anterior fascicular block Moderate voltage criteria for LVH, may be normal variant Nonspecific ST abnormality Prolonged QT Abnormal ECG When compared with ECG of 08-OCT-2021 22:49, (unconfirmed) Premature ventricular complexes are no longer Present T wave inversion no longer evident in Anterolateral leads QT has lengthened Confirmed by Zackary Mandel ([id number]) on 10/09/2021 12:33:11 PM Referred By: [facility] Confirmed By:Jd Mandel
--- NOTE | 2021-10-09 15:59 | Hospitalist Progress Note ---
Date of Service October 09, 2021 Assessment & Plan (1) Intractable vomiting with nausea: Plan: Nausea with some vomiting just began approximately 3 days ago after patient was taken off scheduled tramadol. She has a history of developing illness when she is in pain. She had been on scheduled tramadol since her recent operation in late August. She was doing well per son prior to usp placing her tramadol to as needed status. Another possible etiology would be a viral gastroenteritis. There is no evidence of colitis on CT abdomen pelvis and she has no abdominal pain. She is still avoiding food today and will restart some normal saline, careful in the setting of known cardiac valvular disease. Check lites in a.m. and replace as needed. Continue antiemetics as needed. (2) Elevated troponin: Plan: Likely related to demand ischemia, echocardiogram ordered and compared to prior studies there was no significant change. No further work-up at this time. (3) Chronic anemia: Plan: Chronic, stable and around her baseline. Continues on warfarin. (4) Rheumatoid arthritis: Plan: Chronic, stable, continue methotrexate and low-dose prednisone daily. (5) S/P TAVR (transcatheter aortic valve replacement): (6) CKD (chronic kidney disease) stage 3, GFR 30-59 ml/min: Plan: Chronic, stable. She is at her baseline. (7) Pneumonia: Plan: Ruled out and patient taken off antibiotics. (8) Urinary tract infection: Plan: Ruled out and taken off antibiotics. Patient has a history of C. difficile in 1 to limit antibiotics exposure. She also has some loose stool today. Want to avoid additional adverse side effects from antibiotic use. (9) DVT prophylaxis: Plan: Warfarin is therapeutic Full code Disposition-pending clinical improvement including ability to tolerate p.o. more reliably. I discussed the assessment and plan in detail with her son, Martín. All questions answered and he verbalized understanding. Zeynep Hale DO [facility]tic[facility]ated Discharge Date Admission Date: October 09, 2021 Subjective Patient is an 80-year-old female who presented from [facility] for evaluation of intractable nausea and vomiting over the past several days. Weakness and difficulty ambulating has resulted. White blood cell count and platelets were within normal limits. H&H was similar to previous values. INR was 3.8. Chemistry was within normal limits. LFTs without significant abnormality elevated highly sensitive troponin to 51 with a 4-hour recheck of 66 which was nonspecific. No chest pain was reported. There was some EKG abnormalities but this was not consistent with acute ischemia. CT of the abdomen and pelvis was performed revealing no acute infectious or inflammatory findings, subacute fractures of the lumbar spine which were unchanged, bilateral nephrolithiasis. There was an area that was a small consolidation at the left lung base. She was admitted and placed on gentle fluids. She has not eaten much today despite 2 doses of Zofran administered by the nurse. Urine culture returned with pulmonary pinpoint growth present, reincubating. She remains on Rocephin and doxycycline for empiric coverage of possible pneumonia. Chest x- ray revealed no acute process and final reading on CT of the abdomen revealed presumed round atelectasis at the left lung base that is unchanged from prior studies. Patient is confused and had some loose stool today per nurse. She is afebrile Review of Systems Review of Systems: Review of systems was unable to be obtained secondary to confusion however, patient denied any chest pain or other discomfort at this time. Physical Exam Physical Exam: CONSTITUTIONAL: WNWD, vitals as above, generally well- appearing, confused, NAD EYES: normal conjunctivae, no scleral icterus ENT: external ear and nose normal, NECK: trachea midline, RESPIRATORY: clear to auscultation bilaterally, no crackles, rales or wheezes, normal respiratory effort CARDIOVASCULAR: regular rate and rhythm, S1 and 2 heard without murmurs, gallops or rubs, no JVD, no peripheral edema CHEST: inspection of chest was normal GASTROINTESTINAL: soft, nontender, ND, no guarding MUSCULOSKELETAL: generally not wanting/able to participate in exam, able to roll over in bed, SKIN: warm and dry NEUROLOGIC: CN 2-12 grossly intact, awake but not very cooperative with exam, normal speech, no tremor, [place]? PSYCHIATRIC: alert and oriented to self only. Unable to follow instructions/give history. States she is confused. Results & Data Results & Data ([facility]) Vital Signs (Past 12 Hours) Vital Signs Temp Pulse Pulse Resp BP BP Pulse Ox 10/09/21 15:44 36.8 C 84 18 172/75 H 94 10/09/21 15:02 88 10/09/21 11:23 36.8 C 81 17 183/82 H 99 10/09/21 08:00 78 10/09/21 08:10 36.7 C 93 H 18 164/71 H 98 O2 Del Method 10/09/21 15:44 Room Air 10/09/21 15:02 10/09/21 11:23 Room Air 10/09/21 08:00 10/09/21 08:10 Room Air Laboratory Results Short CBC 10/08/21 10/09/21 Range/Units 20:20 05:28 WBC 6.71 5.09 (4.8-10.8) K/ul Hgb 10.4 L 9.5 L (12.0-16.0) g/dl Hct 30.9 L 28.8 L (34.1-44.9) % Plt Count 162 141 (130-400) K/uL BMP 10/08/21 10/09/21 20:20 05:28 Sodium 136 137 Potassium 3.7 3.2 L Chloride 103 107 Carbon Dioxide 22 20 L BUN 15 13 Creatinine 0.74 0.64 Glucose 84 90 Calcium 8.3 L 7.5 L Liver Function 10/08/21 Range/Units 20:20 Total Bilirubin 1.3 H (0.2-1.0) mg/dl AST 37 (13-39) U/L ALT 15 (7-52) U/L Alkaline Phosphatase 106 H (34-104) U/L Albumin 3.5 (3.4-5.0) gm/dl Urine 10/08/21 Range/Units 20:30 Urine Color Yellow Urine Appearance Cloudy A (Clear) Urine pH 6.0 (4.5-7.5) Ur Specific [place] 1.012 (1.000-1.030) Urine Protein Negative (Negative) Urine Glucose (UA) Negative (Negative) Diagnostic Findings Abdomen/Pelvis CT 10/08/21 22:06 CT SCAN OF THE ABDOMEN AND PELVIS WITH IV CONTRAST CLINICAL HISTORY: Nausea and vomiting COMPARISON STUDY: Abdominal CT dated 09/11/2021. TECHNIQUE: Following the IV administration of 94 cc of Optiray 320, CT scan of the abdomen and pelvis is performed from the lung bases to the proximal femora. Images are reviewed in the axial, sagittal, and coronal planes. IV contrast was administered without complication. A dose lowering technique was utilized adhering to the principles of ALARA. The examination is degraded by streak artifact from metallic spinal hardware. FINDINGS: Lung bases: There is evidence of previous aortic valve surgery. The heart is enlarged and without pericardial effusion. A fat-containing Bochdalek hernia is noted at the right lung base. Fibrotic change at both lung bases is similar to previous. There is no airspace consolidation typical for pneumonia or pleural effusion. Presumed round atelectasis at the left lung base is unchanged from prior studies. A small hiatal hernia is noted. Liver: The contrast-enhanced liver is normal in size, contour, and attenuation. There is no intrahepatic biliary ductal dilatation. The hepatic veins and portal veins are patent. Gallbladder: Contracted. Spleen: Normal in size and attenuation. There are calcified splenic granulomas. Pancreas: Moderately atrophic and grossly unremarkable. Adrenal glands: Unremarkable. Kidneys: The contrast enhanced kidneys demonstrate cortical atrophy and are without hydronephrosis. The kidneys enhance symmetrically. There are numerous bilateral nonobstructing renal calculi which measure up to 5 mm. A circumaortic left renal vein is incidentally noted. Abdominal vasculature: The abdominal aorta is normal in course and caliber noting advanced atherosclerotic calcification. Bowel: There is mild colonic diverticulosis with no CT evidence of acute diverticulitis. No bowel obstruction is seen. The appendix is well-visualized and normal. Peritoneum: There is no intraperitoneal free air or abdominal ascites. Lymphadenopathy: None. Pelvic viscera: The bladder wall is normal as visualized. The uterus is surgically absent. No adnexal lesion is seen. Skeletal structures: The skeletal structures are osteopenic. There are 6 lumbar type vertebral bodies. There is advanced lumbosacral spondylosis with postoperative change from L4-S1 spinal fusion. There is a subacute burst type compression fracture of L3 (labeled L2 on prior examinations). Fracture involves both pedicles. There is also a subacute inferior endplate compression fracture of L2. No lytic or blastic lesions are seen. There is chronic posttraumatic deformity of the sacrum. IMPRESSION: 1. No acute infectious or inflammatory findings are seen in the abdomen or pelvis. 2. Subacute fractures of the lumbar spine are unchanged. 3. Bilateral nephrolithiasis. 4. Cardiomegaly. 5. Additional findings as above. ACT 112: Negative or not required by law. Electronically signed by: Vitaliy Tate M.D. 10/09/2021 8:18 AM Chest X-Ray 10/09/21 08:00 XR chest 2V PA/lateral HISTORY: Pneumonia. Follow-up. COMPARISON: Chest CT 09/11/2021. FINDINGS: Small focal density within the left lung base persists. This favors the chronic pleural thickening/scarring seen on the prior studies. No pneumothorax. No pleural effusions. The heart is mildly enlarged. An aortic valve stent is again noted. No new focal lung consolidations to suggest pneumonia. No evidence for pulmonary edema. IMPRESSION: No significant change compared to the prior study. No acute process. ACT 112: Negative or not required by law. Electronically signed by: João Raymond M.D. 10/09/2021 8:41 AM Medications Administered Current Inpatient Medications Acetaminophen (Acetaminophen 325 Mg Tab) 650 mg PO Q4H PRN PRN Reason: mild Pain 1,2,3 or Fever Stop: 11/08/21 03:45 Acetaminophen/Codeine Phosphate (Acetaminophen W/Codeine #3 1 Tab) 1 tab PO BID PRN PRN Reason: Mod-severe pain4,5,6,7,8,9,10 Stop: 11/08/21 03:45 Amlodipine Besylate (A[facility]odipine Besylate 5 Mg Tab) [facility] Stop[facility] 11/08/21 08:59 Last Admin: 10/09/21 09:56 Dose: 5 mg Atorvastatin Calcium (Atorvastatin 40 Mg Tab) [facility] Stop: 11/08/21 08:59 Last Admin: 10/09/21 09:56 Dose: 40 mg Clopidogrel Bisulfate (Clopidogrel Bisulfate 75 Mg Tab) 75 mg PO QAM [facility] Stop: 11/08/21 08:59 Last Admin: 10/09/21 09:56 Dose: 75 mg Ezetimibe (Ezetimibe 10 Mg Tablet) [facility] Stop: 11/08/21 08:59 Last Admin: 10/09/21 09:56 Dose: 10 mg Ferrous Sulfate (Ferrous Sulfate 325 Mg Tab) 325 mg PO BID [facility] Stop: 11/08/21 08:59 Last Admin: 10/09/21 09:56 Dose: 325 mg Folic Acid (Folic Acid 1 Mg Tab) 2 mg PO QAM [facility] Stop: 11/08/21 08:59 Last Admin: 10/09/21 09:57 Dose: 2 mg Gabapentin (Gabapentin 100 Mg Cap) 100 mg PO BID [facility] Stop: 11/08/21 08:59 Last Admin: 10/09/21 09:57 Dose: 100 mg Ceftriaxone Sodium 1,000 mg/ (Dextrose) 60 mls @ 120 mls/hr IV Q24H [facility]; Protocol Stop: 10/19/21 03:59 Last Infusion: 10/09/21 05:30 Dose: Infused Doxycycline Hyclate 100 mg/ (Dextrose) 110 mls @ 50 mls/hr IV Q12H [facility] Stop: 10/16/21 04:59 Last Infusion: 10/09/21 07:37 Dose: Infused Levothyroxine Sodium (Levothyroxine Sodium 50 Mcg Tablet) 50 mcg PO DAILYBB [facility] Stop: 11/08/21 06:29 Last Admin: 10/09/21 06:23 Dose: 50 mcg Metoprolol Succinate (Metoprolol Succ 50mg Ext Rel Tab) 50 mg PO BID [facility] Stop: 11/08/21 08:59 Last Admin: 10/09/21 09:57 Dose: 50 mg Nitroglycerin (Nitroglycerin Sl 0.4 Mg/Tab Tab) 0.4 mg SL Q5M PRN PRN Reason: Chest Pain Stop: 11/08/21 03:45 Ondansetron HCl (Ondansetron Inj 2 Mg/Ml 2 Ml Vial) 4 mg IV Q6H PRN PRN Reason: Nausea Stop: 11/08/21 03:45 Last Admin: 10/09/21 11:07 Dose: 4 mg Pantoprazole Sodium (Pantoprazole 40 Mg Tab) 40 mg PO QAM [facility] Stop: 11/08/21 08:59 Last Admin: 10/09/21 10:02 Dose: 40 mg Polyethylene Glycol (Polyethylene (Miralax) 17 Gm Pack) 17 gm PO DAILY PRN PRN Reason: Constipation Stop: 11/08/21 03:45 Potassium Chloride (Potassium Chloride Pwd 20 Meq Pack) 40 meq PO Q6H [facility] Stop: 10/09/21 17:16 Last Admin: 10/09/21 12:19 Dose: 40 meq Prednisone (Prednisone 5 Mg Tab) 5 mg PO DAILY [facility] Stop: 11/08/21 08:59 Last Admin: 10/09/21 10:02 Dose: 5 mg Ropinirole HCl (Ropinirole Hcl 1 Mg Tablet) 3 mg PO HS PRN PRN Reason: restless legs Stop: 11/08/21 03:45 Warfarin Sodium (Warfarin Sod 2.5 Mg Tab) 2.5 mg PO [id number]@1600 [facility] Stop: 11/09/21 15:59 Warfarin Sodium (Warfarin Sod 1.25 Mg Tab) 1.25 mg PO [id number]@1600 [facility] Stop: 11/08/21 15:59 (1) Rheumatoid arthritis Rheumatoid arthritis location: unspecified site Rheumatoid factor presence: unspecified presence Qualified Code(s): M06.9 - Rheumatoid arthritis, unspecified
[2021-10-09] MEDS ORDERED: WARFARIN SOD 1.25 MG TAB PO SCH (16:00)
[2021-10-09] MEDS ORDERED: traMADol HCL 50 MG TABLET PO STA (19:32)
[2021-10-09] MEDS: SODIUM CHLORIDE 0.9% 1000ML 1,000 ML IV SCH (19:33)
[2021-10-09] MEDS: ACETAMINOPHEN 500 MG TAB PO SCH (19:54)
[2021-10-10] MEDS: ACETAMINOPHEN 500 MG TAB PO SCH ×3 (04:30→19:57)
[2021-10-10] MEDS: LEVOTHYROXINE SODIUM 50 MCG TABLET PO SCH (05:39)
[2021-10-10 06:52] LABS: Hematocrit (blood only) 30.9 % (34.1-44.9); Hemoglobin 10.1 g/dl (12.0-16.0); Mean Corpuscular Hemoglobin 33.3 pg (25.0-34.0); Mean Corpuscular Hgb Conc 32.7 g/dL (32.0-36.0); Platelet Count 146 K/uL (130-400); RDW Coefficient of Variation 18.2 % (11.5-14.5); RDW Standard Deviation 67.3 fL (36.4-46.3); Red Blood Count 3.03 M/uL (3.93-5.22); White Blood Count 4.94 K/ul (4.8-10.8)
[2021-10-10 07:23] LABS: Anion Gap 8 (3-11); BUN Creatinine Ratio 9.8 (10-20); Blood Urea Nitrogen 6 mg/dl (6-23); Calcium 7.6 mg/dl (8.5-10.1); Carbon Dioxide 19 mmol/L (21-32); Chloride 111 mmol/L (98-107); Creatinine Clr Calc Pharmacy 57.2 ml/min; Est GFR (African American) 98.5 ml/min; Glucose 92 mg/dl (70-99(Fasting)); Magnesium 1.8 mg/dl (1.7-2.4); Phosphorus 1.9 mg/dl (2.5-4.9); Sodium 138 mmol/L (136-145)
[2021-10-10 07:24] LABS: INR 3.8 (0.9-1.1); Prothrombin Time 37.3 Seconds (9.0-12.0)
[2021-10-10] MEDS: amLODIPine BESYLATE 5 MG TAB PO SCH (08:30)
[2021-10-10] MEDS: ATORVASTATIN 40 MG TAB PO SCH (08:30)
[2021-10-10] MEDS: EZETIMIBE 10 MG TABLET PO SCH (08:31)
[2021-10-10] MEDS: FOLIC ACID 1 MG TAB PO SCH (08:31)
[2021-10-10] MEDS: METOPROLOL SUCC 50MG EXT REL TAB PO SCH ×2 (08:31→20:00)
[2021-10-10] MEDS: CLOPIDOGREL BISULFATE 75 MG TAB PO SCH (08:31)
[2021-10-10] MEDS: FERROUS SULFATE 325 MG TAB PO SCH ×2 (08:31→19:59)
[2021-10-10] MEDS: GABAPENTIN 100 MG CAP PO SCH ×2 (08:31→19:59)
[2021-10-10] MEDS: PANTOprazole 40 MG TAB PO SCH (08:32)
[2021-10-10] MEDS: predniSONE 5 MG TAB PO SCH (08:32)
[2021-10-10] MEDS: SODIUM CHLORIDE 0.9% 1000ML 1,000 ML IV SCH (08:44)
[2021-10-10] MEDS: ONDANSETRON INJ 2 MG/ML 2 ML VIAL IV PRN (08:48)
[2021-10-10] MEDS ORDERED: SODIUM PHOSPHATE 3 MMOL/1 ML 5 ML VIAL IV ONE (09:15)
[2021-10-10] MEDS ORDERED: SODIUM PHOSPHATE 15 MMOL in DEXTROSE 5% 250 ML IV ONE (09:30)
[2021-10-10 10:49] LABS: Adenovirus F 40/41 PCR Not Detected (NotDetected); Astrovirus PCR Not Detected (NotDetected); Campylobacter PCR Not Detected (NotDetected); Clostridium diff Toxin A/B PCR Not Detected (NotDetected); Cryptosporidium PCR Not Detected (NotDetected); Cyclospora cayetanensis PCR Not Detected (NotDetected); Entamoeba histolytica PCR Not Detected (NotDetected); Enteroaggregative E.coli(EAEC) Not Detected (NotDetected); Enteropathogenic E.coli (EPEC) Not Detected (NotDetected); Enterotoxigenic E.coli (ETEC) Not Detected (NotDetected); Giardia lamblia PCR Not Detected (NotDetected); Norovirus GI/GII PCR Not Detected (NotDetected); Plesiomonas shigelloides PCR Not Detected (NotDetected); Rotavirus A PCR Not Detected (NotDetected); Salmonella PCR Not Detected (NotDetected); Sapovirus PCR Not Detected (NotDetected); Shiga-like Toxin E.coli (STEC) Not Detected (NotDetected); Shigella/Enteroinvasive E.coli Not Detected (NotDetected); Vibrio cholerae PCR Not Detected (NotDetected); Vibrio species PCR Not Detected (NotDetected); Yersinia enterocolitica PCR Not Detected (NotDetected)
[2021-10-10] MEDS ORDERED: POTASSIUM CHLORIDE PWD 20 MEQ PACK PO ONE (17:16)
--- NOTE | 2021-10-10 17:17 | Hospitalist Progress Note ---
Date of Service October 10, 2021 Assessment & Plan (1) Intractable vomiting with nausea: Plan: Nausea with some vomiting just began approximately 3 days ago after patient was taken off scheduled tramadol. She has a history of developing illness when she is in pain. She had been on scheduled tramadol since her recent operation in late August. She was doing well per son prior to jail placing her tramadol to as needed status. Another possible etiology would be a viral gastroenteritis. There is no evidence of colitis on CT abdomen pelvis and she has no abdominal pain. She is still avoiding food today and will restart some normal saline, careful in the setting of known cardiac valvular disease. Check lites in a.m. and replace as needed. Continue antiemetics as needed. 10/10: nausea resolved, eating solid foods, some loose stool still present per nurse. Pt is clinically improved. Stool sample negative for infection. Gave some phos and will give K now. Recheck in am. (2) Elevated troponin: Plan: Likely related to demand ischemia, echocardiogram ordered and compared to prior studies there was no significant change. No further work-up at this time. (3) Chronic anemia: Plan: Chronic, stable and around her baseline. Continues on warfarin which was held with INR 3.8 today. Check INR daily. (4) Rheumatoid arthritis: Plan: Chronic, stable, continue methotrexate and low-dose prednisone daily. (5) S/P TAVR (transcatheter aortic valve replacement): (6) CKD (chronic kidney disease) stage 3, GFR 30-59 ml/min: Plan: Chronic, stable. She is at her baseline. (7) Pneumonia: Plan: Ruled out and patient taken off antibiotics. (8) Urinary tract infection: Plan: Ruled out and taken off antibiotics. Patient has a history of C. difficile in 1 to limit antibiotics exposure. She also has some loose stool today. Want to avoid additional adverse side effects from antibiotic use. (9) DVT prophylaxis: Plan: Warfarin is therapeutic Full code Disposition-pending clinical improvement including ability to tolerate p.o. more reliably. Zeynep Hale DO [facility] Hospitalist Admission and Anticipated Discharge Date Admission Date: October 09, 2021 Subjective Patient is an 80-year-old female who presented from [facility] for evaluation of intractable nausea and vomiting over the past several days. Confusion appears to have resolved today There is still some loose stool but this is improved She is not nauseous and is tolerating p.o. reliably. IV fluids from overnight have been stopped Patient denies any pain nausea or other issue Continues on scheduled tramadol and scheduled Tylenol Review of Systems Review of Systems: All systems reviewed negative except as indicated above. Physical Exam Physical Exam: CONSTITUTIONAL: WNWD, vitals as above, generally well- appearing, NAD EYES: normal conjunctivae, no scleral icterus ENT: external ear and nose normal, NECK: trachea midline, RESPIRATORY: clear to auscultation bilaterally, no crackles, rales or wheezes, normal respiratory effort CARDIOVASCULAR: regular rate and rhythm, S1 and 2 heard without murmurs, gallops or rubs, no JVD, no peripheral edema CHEST: inspection of chest was normal GASTROINTESTINAL: soft, nontender, ND, no guarding MUSCULOSKELETAL: 5/5 strength throughout, no gross focal deficits. SKIN: warm and dry NEUROLOGIC: CN 2-12 grossly intact, alert, sensation intact, no gross focal neurologic deficit. PSYCHIATRIC: oriented to person only, [place] is more alert and cooperative today. Appears brighter and clinically improved. Results & Data Results & Data ([facility]) Vital Signs (Past 12 Hours) Vital Signs Temp Pulse Pulse Resp BP BP Pulse Ox 10/10/21 15:44 36.5 C 90 18 142/82 H 98 10/10/21 08:00 10/10/21 10:50 36.7 C 72 18 154/82 H 97 10/10/21 08:18 83 10/10/21 07:56 37.0 C 98 H 18 154/84 H 99 O2 Del Method 10/10/21 15:44 Room Air 10/10/21 08:00 Room Air 10/10/21 10:50 Room Air 10/10/21 08:18 10/10/21 07:56 Room Air Laboratory Results Short CBC 10/10/21 Range/Units 06:23 WBC 4.94 (4.8-10.8) K/ul Hgb 10.1 L (12.0-16.0) g/dl Hct 30.9 L (34.1-44.9) % Plt Count 146 (130-400) K/uL BMP 10/10/21 10/10/21 06:23 08:15 Sodium 138 Potassium TNP 3.2 L Chloride 111 H Carbon Dioxide 19 L BUN 6 Creatinine 0.61 Glucose 92 Calcium 7.6 L Diagnostic Findings Short CBC 10/10/21 Range/Units 06:23 WBC 4.94 (4.8-10.8) K/ul Hgb 10.1 L (12.0-16.0) g/dl Hct 30.9 L (34.1-44.9) % Plt Count 146 (130-400) K/uL BMP 10/10/21 10/10/21 06:23 08:15 Sodium 138 Potassium TNP 3.2 L Chloride 111 H Carbon Dioxide 19 L BUN 6 Creatinine 0.61 Glucose 92 Calcium 7.6 L Medications Administered Current Inpatient Medications Acetaminophen (Acetaminophen 500 Mg Tab) 1,000 mg PO Q8H [facility] Stop: 11/08/21 19:59 Last Admin: 10/10/21 12:39 Dose: 1,000 mg Amlodipine Besylate (Amlodipine Besylate 5 Mg Tab) 5 mg PO [facility] Stop: 11/08/21 08:59 Last Admin: 10/10/21 08:30 Dose: 5 mg Atorvastatin Calcium (Atorvastatin 40 Mg Tab) 40 mg PO [facility] Stop: 11/08/21 08:59 Last Admin: 10/10/21 08:30 Dose: 40 mg Clopidogrel Bisulfate (Clopidogrel Bisulfate 75 Mg Tab) 75 mg PO [facility] Stop: 11/09/21 08:59 Last Admin: 10/10/21 08:31 Dose: 75 mg Ezetimibe (Ezetimibe 10 Mg Tablet) 10 mg PO [facility] Stop: 11/08/21 08:59 Last Admin: 10/10/21 08:31 Dose: 10 mg Ferrous Sulfate (Ferrous Sulfate 325 Mg Tab) 325 mg PO BID [facility] Stop: 11/08/21 08:59 Last Admin: 10/10/21 08:31 Dose: 325 mg Folic Acid (Folic Acid 1 Mg Tab) [facility] Stop: 11/08/21 08:59 Last Admin: 10/10/21 08:31 Dose: 2 mg Gabapentin (Gabapentin 100 Mg Cap) 100 mg PO BID [facility] Stop: 11/08/21 08:59 Last Admin: 10/10/21 08:31 Dose: 100 mg Levothyroxine Sodium (Levothyroxine Sodium 50 Mcg Tablet) [facility] Stop: 11/08/21 06:29 Last Admin: 10/10/21 05:39 Dose: 50 mcg Metoprolol Succinate (Metoprolol Succ 50mg Ext Rel Tab) 50 mg PO BID [facility] Stop: 11/08/21 08:59 Last Admin: 10/10/21 08:31 Dose: 50 mg Nitroglycerin (Nitroglycerin Sl 0.4 Mg/Tab Tab) 0.4 mg SL Q5M PRN PRN Reason: Chest Pain Stop: 11/08/21 03:45 Ondansetron HCl (Ondansetron Inj 2 Mg/Ml 2 Ml Vial) 4 mg IV Q6H PRN PRN Reason: Nausea Stop: 11/08/21 03:45 Last Admin: 10/10/21 08:48 Dose: 4 mg Pantoprazole Sodium (Pantoprazole 40 Mg Tab) 40 mg PO QAM [facility] Stop: 11/08/21 08:59 Last Admin: 10/10/21 08:32 Dose: 40 mg Polyethylene Glycol (Polyethylene (Miralax) 17 Gm Pack) 17 gm PO DAILY PRN PRN Reason: Constipation Stop: 11/08/21 03:45 Prednisone (Prednisone 5 Mg Tab) 5 mg PO DAILY [facility] Stop: 11/08/21 08:59 Last Admin: 10/10/21 08:32 Dose: 5 mg Ropinirole HCl (Ropinirole Hcl 1 Mg Tablet) 3 mg PO HS PRN PRN Reason: restless legs Stop: 11/08/21 03:45 Warfarin Sodium (Warfarin Sod 2.5 Mg Tab) 2.5 mg PO SuMoWeFrSa@1600 [facility] Stop: 11/09/21 15:59 Warfarin Sodium (Warfarin Sod 1.25 Mg Tab) 1.25 mg PO TuTh@1600 [facility] Stop: 11/08/21 15:59 (1) Rheumatoid arthritis Rheumatoid arthritis location: unspecified site Rheumatoid factor presence: unspecified presence Qualified Code(s): M06.9 - Rheumatoid arthritis, unspecified
[2021-10-10] MEDS ORDERED: cefTRIAXone SODIUM 1,000 MG in DEXTROSE 5% 50 ML IV SCH (18:15)
[2021-10-11] MEDS: ACETAMINOPHEN 500 MG TAB PO SCH ×2 (05:03→12:00)
[2021-10-11 05:58] LABS: Hematocrit (blood only) 29.9 % (34.1-44.9); Mean Corpuscular Hemoglobin 33.2 pg (25.0-34.0); Mean Corpuscular Hgb Conc 33.4 g/dL (32.0-36.0); Mean Corpuscular Volume 99.3 fL (80.0-100.0); Mean Platelet Volume 9.8 fL (9.4-12.3); Platelet Count 156 K/uL (130-400); RDW Coefficient of Variation 17.7 % (11.5-14.5); RDW Standard Deviation 65.1 fL (36.4-46.3); Red Blood Count 3.01 M/uL (3.93-5.22); White Blood Count 6.06 K/ul (4.8-10.8)
[2021-10-11] MEDS: LEVOTHYROXINE SODIUM 50 MCG TABLET PO SCH (06:03)
[2021-10-11 06:21] LABS: INR 3.8 (0.9-1.1); Prothrombin Time 37.6 Seconds (9.0-12.0)
[2021-10-11 06:41] LABS: BUN Creatinine Ratio 11.3 (10-20); Calcium 7.9 mg/dl (8.5-10.1); Creatinine Clr Calc Pharmacy 56.3 ml/min; Est GFR (Non-African American) 84.6 ml/min; Magnesium 1.7 mg/dl (1.7-2.4); Phosphorus 2.2 mg/dl (2.5-4.9); Potassium 3.1 mmol/L (3.5-5.1)
[2021-10-11] MEDS ORDERED: POTASSIUM CHLORIDE PWD 20 MEQ PACK PO SCH (08:00)
[2021-10-11] MEDS: METOPROLOL SUCC 50MG EXT REL TAB PO SCH ×2 (09:55→21:21)
[2021-10-11] MEDS: hydroCHLOROthiazide 25 MG TAB PO SCH (09:55)
[2021-10-11] MEDS: POT PHOSPHATE MONOBASIC W/ SOD TAB PO SCH ×4 (09:55→21:27)
[2021-10-11] MEDS: GABAPENTIN 100 MG CAP PO SCH ×2 (09:55→21:26)
[2021-10-11] MEDS: EZETIMIBE 10 MG TABLET PO SCH (09:56)
[2021-10-11] MEDS: CLOPIDOGREL BISULFATE 75 MG TAB PO SCH (09:56)
[2021-10-11] MEDS: amLODIPine BESYLATE 5 MG TAB PO SCH (09:56)
[2021-10-11] MEDS: FERROUS SULFATE 325 MG TAB PO SCH ×2 (09:56→21:27)
[2021-10-11] MEDS: FOLIC ACID 1 MG TAB PO SCH (09:57)
[2021-10-11] MEDS: PANTOprazole 40 MG TAB PO SCH (09:57)
[2021-10-11] MEDS: predniSONE 5 MG TAB PO SCH (09:59)
[2021-10-11] MEDS: ATORVASTATIN 40 MG TAB PO SCH (09:59)
[2021-10-11] MEDS: ONDANSETRON INJ 2 MG/ML 2 ML VIAL IV PRN ×2 (10:30→22:02)
[2021-10-11] MEDS ORDERED: POTASSIUM CHLORIDE CRTAB 20 MEQ TABCR PO ONE (13:00)
[2021-10-11] MEDS ORDERED: ACETAMINOPHEN 325 MG TAB PO PRN (15:03)
--- NOTE | 2021-10-11 15:50 | Hospitalist Progress Note ---
Date of Service October 11, 2021 Assessment & Plan (1) Intractable vomiting with nausea: Plan: Nausea with some vomiting just began approximately 3 days ago after patient was taken off scheduled tramadol. She has a history of developing illness when she is in pain. She had been on scheduled tramadol since her recent operation in late August. She was doing well per son prior to senior care placing her tramadol to as needed status. Another possible etiology would be a viral gastroenteritis. There is no evidence of colitis on CT abdomen pelvis and she has no abdominal pain. Stool studies reveal no evidence of infection. 10/10: nausea resolved, eating solid foods, some loose stool still present per nurse. Pt is clinically improved. Stool sample negative for infection. Gave some phos and will give K now. Recheck in am. 10/11: still confused, wondering if she is mentating close to baseline. Tolerating PO but poor appetite this am. She is very sleepy. Still attempting to get oral potassium into her for low K, switching to IV replacement. (2) Elevated troponin: Plan: Likely related to demand ischemia, echocardiogram ordered and compared to prior studies there was no significant change. No further work-up at this time. (3) Chronic anemia: Plan: Chronic, stable and around her baseline. Continues on warfarin which was held with INR 3.8 today. Check INR daily. (4) Rheumatoid arthritis: Plan: Chronic, stable, continue methotrexate and low-dose prednisone daily. (5) S/P TAVR (transcatheter aortic valve replacement): (6) CKD (chronic kidney disease) stage 3, GFR 30-59 ml/min: Plan: Chronic, stable. She is at her baseline. (7) Pneumonia: Plan: Ruled out and patient taken off antibiotics. (8) Urinary tract infection: Plan: Ruled out and taken off antibiotics. Patient has a history of C. difficile in 1 to limit antibiotics exposure. She also has some loose stool today. Want to avoid additional adverse side effects from antibiotic use. Then her urine culture on 10/10 revealed evidence of GNB so she was placed on Rocephin empirically. This grew Pseudomonas and diptheroids today, so switched to cefepime. Although not >100CFU on culture, she is clinically still ill- appearing and would like to see if a few doses of antibiotics will perk her up. Cont monitoring for now. (9) DVT prophylaxis: Plan: Warfarin is therapeutic Full code Disposition-pending clinical improvement including ability to tolerate p.o. more reliably. Zeynep Hale DO [facility] Admission and Anticipated Discharge Date Admission Date: October 09, 2021 Subjective Patient is an 80-year-old female who presented from [facility] for karin luation of intractable nausea and vomiting over the past several days. She is disoriented beliving she is in [place] She doesn't know the date She was just awakened from sleep and is still lethargic somewhat but answering questions approrpiately She denies any pain, UTI symptoms, and states she feels better since the last couple of days She did decline the Tylneol this am, and hi asked if the medications were making her too sleepy, she said no. She doesn't know if she has had any further loose BMs. She is eating but low appetite this am per nurse. Review of Systems Review of Systems: All systems were reviewed and negative except as indicated above. Physical Exam Physical Exam: CONSTITUTIONAL: WNWD, vitals as above, generally well- appearing, NAD EYES: normal conjunctivae, no scleral icterus ENT: external ear and nose normal, NECK: trachea midline, RESPIRATORY: clear to auscultation bilaterally, no crackles, rales or wheezes, normal respiratory effort CARDIOVASCULAR: regular rate and rhythm, S1 and 2 heard without murmurs, gallops or rubs, no JVD, no peripheral edema CHEST: inspection of chest was normal GASTROINTESTINAL: soft, nontender, ND, no guarding MUSCULOSKELETAL: 5/5 strength throughout, no gross focal deficits. SKIN: warm and dry NEUROLOGIC: CN 2-12 grossly intact, sleepy but awake and answering questions. Sensation intact, no gross focal neurologic deficit. PSYCHIATRIC: oriented to person only, states she is in [place]. She is cooperative today. Results & Data Results & Data ([facility]) Vital Signs (Past 12 Hours) Vital Signs Temp Pulse Resp BP Pulse Ox O2 Del Method 10/11/21 08:00 Room Air 10/11/21 07:58 36.6 C 90 20 180/80 H 97 Room Air Laboratory Results Short CBC 10/11/21 Range/Units 05:38 WBC 6.06 (4.8-10.8) K/ul Hgb 10.0 L (12.0-16.0) g/dl Hct 29.9 L (34.1-44.9) % Plt Count 156 (130-400) K/uL BMP 10/11/21 05:38 Sodium 141 Potassium 3.1 L Chloride 111 H Carbon Dioxide 23 BUN 7 Creatinine 0.62 Glucose 85 Calcium 7.9 L Medications Administered Current Inpatient Medications Acetaminophen (Acetaminophen 325 Mg Tab) 650 mg PO Q4H PRN PRN Reason: pain/fever Stop: 11/10/21 15:02 Amlodipine Besylate (Amlodipine Besylate 5 Mg Tab) [facility]: 11/08/21 08:59 Last Admin: 10/11/21 09:56 Dose: 5 mg Atorvastatin Calcium (Atorvastatin 40 Mg Tab) 40 mg [facility] Stop: 11/08/21 08:59 Last Admin: 10/11/21 09:59 Dose: 40 mg Clopidogrel Bisulfate (Clopidogrel Bisulfate 75 Mg Tab) 75 [facility] Stop[facility] 11/09/21 08:59 Last Admin: 10/11/21 09:56 Dose: 75 mg Ezetimibe (Ezetimibe 10 Mg Tablet) 10 mg [facility] Stop: 11/08/21 08:59 Last Admin: 10/11/21 09:56 Dose: 10 mg Ferrous Sulfate (Ferrous Sulfate 325 Mg Tab) 325 mg PO BID [facility] Stop: 11/08/21 08:59 Last Admin: 10/11/21 09:56 Dose: 325 mg Folic Acid (Folic Acid 1 Mg Tab) 2 mg [facility] Stop: 11/08/21 08:59 Last Admin: 10/11/21 09:57 Dose: 2 mg Gabapentin (Gabapentin 100 Mg Cap) 100 mg PO BID [facility] Stop: 11/08/21 08:59 Last Admin: 10/11/21 09:55 Dose: 100 mg Hydrochlorothiazide (Hydrochlorothiazide 25 Mg Tab) 12.5 mg [facility] Stop: 11/10/21 08:59 Last Admin: 10/11/21 09:55 Dose: 12.5 mg Potassium Chloride (K Chandana / Wtr) 10 meq in 100 mls @ 100 mls/hr IV Q1H [facility]; Protocol Stop: 10/11/21 17:14 Cefepime HCl 2,000 mg/ Syringe 20 mls @ 5 mls/min IV Q12H [facility]; Protocol Stop: 10/16/21 15:29 Levothyroxine Sodium (Levothyroxine Sodium 50 Mcg Tablet) 50 mcg PO DAILYBB [facility] Stop: 11/08/21 06:29 Last Admin: 10/11/21 06:03 Dose: 50 mcg Metoprolol Succinate (Metoprolol Succ 50mg Ext Rel Tab) 50 mg PO BID [facility] Stop: 11/08/21 08:59 Last Admin: 10/11/21 09:55 Dose: 50 mg Nitroglycerin (Nitroglycerin Sl 0.4 Mg/Tab Tab) 0.4 mg SL Q5M PRN PRN Reason: Chest Pain Stop: 11/08/21 03:45 Ondansetron HCl (Ondansetron Inj 2 Mg/Ml 2 Ml Vial) 4 mg IV Q6H PRN PRN Reason: Nausea Stop: 11/08/21 03:45 Last Admin: 10/11/21 10:30 Dose: 4 mg Pantoprazole Sodium (Pantoprazole 40 Mg Tab) 40 mg PO QAM [facility] Stop: 11/08/21 08:59 Last Admin: 10/11/21 09:57 Dose: 40 mg Polyethylene Glycol (Polyethylene (Miralax) 17 Gm Pack) 17 gm PO DAILY PRN PRN Reason: Constipation Stop: 11/08/21 03:45 Potassium Phosphate (Pot Phosphate Monobasic W/ Sod Tab) 2 tab PO QID [facility] Stop: 10/13/21 08:59 Last Admin: 10/11/21 13:41 Dose: 2 tab Prednisone (Prednisone 5 Mg Tab) 5 mg PO DAILY [facility] Stop: 11/08/21 08:59 Last Admin: 10/11/21 09:59 Dose: 5 mg Ropinirole HCl (Ropinirole Hcl 1 Mg Tablet) 3 mg PO HS PRN PRN Reason: restless legs Stop: 11/08/21 03:45 Warfarin Sodium (Warfarin Sod 2.5 Mg Tab) 2.5 mg PO [id number]@1600 [facility] Stop: 11/09/21 15:59 Warfarin Sodium (Warfarin Sod 1.25 Mg Tab) 1.25 mg PO TuTh@1600 [facility] Stop: 11/08/21 15:59 (1) Rheumatoid arthritis Rheumatoid arthritis location: unspecified site Rheumatoid factor presence: unspecified presence Qualified Code(s): M06.9 - Rheumatoid arthritis, unspecified
[2021-10-11] MEDS: CEFEPIME 2,000 MG in SYRINGE 0 ML IV SCH (16:02)
[2021-10-11] MEDS: POTASSIUM CHLORIDE / WTR 10 MEQ/100 ML PLCT IV SCH ×2 (16:03→19:55)
--- NOTE | 2021-10-11 17:08 | CT Scan Report ---
HEAD CT NONCONTRAST CT DOSE: 1566.72 mGy.cm HISTORY: acute confusion TECHNIQUE: Multiaxial CT images of the head were performed without the use of intravenous contrast. A utomated exposure control was utilized for this study. A dose lowering technique was utilized adheri ng to the principles of ALARA. Comparison: Head CT 09/11/2021. Findings: The paranasal sinuses and mastoid air cells are clear. The calvarium and skull base are int act. There is no mass, hematoma, midline shift, acute infarct. White matter hypodensity is nonspecifi c but suggestive of microvascular ischemic change. The ventricles and sulci demonstrate mild age-rela sherita involutional changes. Impression: No significant change compared to the prior study. No acute intracranial abnormality. ACT 112: Negative or not required by law. Electronically signed by: João Raymond M.D. 10/11/2021 5:07 PM
[2021-10-12] MEDS: CEFEPIME 2,000 MG in SYRINGE 0 ML IV SCH (04:28)
[2021-10-12 06:19] LABS: INR 2.2 (0.9-1.1); Prothrombin Time 22.9 Seconds (9.0-12.0)
[2021-10-12 07:05] LABS: BUN Creatinine Ratio 13.6 (10-20); Calcium 7.9 mg/dl (8.5-10.1); Creatinine Clr Calc Pharmacy 52.9 ml/min; Est GFR (Non-African American) 82.8 ml/min; Phosphorus 2.5 mg/dl (2.5-4.9); Potassium 3.9 mmol/L (3.5-5.1)
[2021-10-12] MEDS: CIPROFLOXACIN 250 MG TAB PO SCH ×3 (09:38→21:24)
[2021-10-12] MEDS: GABAPENTIN 100 MG CAP PO SCH ×3 (09:39→21:24)
[2021-10-12] MEDS: FERROUS SULFATE 325 MG TAB PO SCH ×3 (09:39→21:24)
[2021-10-12] MEDS: METOPROLOL SUCC 50MG EXT REL TAB PO SCH ×3 (09:40→21:24)
[2021-10-12] MEDS: hydroCHLOROthiazide 25 MG TAB PO SCH ×2 (09:40→11:57)
[2021-10-12] MEDS: PANTOprazole 40 MG TAB PO SCH ×2 (09:42→11:58)
[2021-10-12] MEDS: LEVOTHYROXINE SODIUM 50 MCG TABLET PO SCH ×2 (09:42→11:53)
[2021-10-12] MEDS: ATORVASTATIN 40 MG TAB PO SCH ×2 (09:42→11:53)
[2021-10-12] MEDS: CLOPIDOGREL BISULFATE 75 MG TAB PO SCH ×2 (09:42→11:53)
[2021-10-12] MEDS: predniSONE 5 MG TAB PO SCH ×2 (09:43→11:58)
[2021-10-12] MEDS: FOLIC ACID 1 MG TAB PO SCH ×2 (09:43→11:56)
[2021-10-12] MEDS: EZETIMIBE 10 MG TABLET PO SCH ×2 (09:43→11:55)
--- NOTE | 2021-10-12 15:15 | Hospitalist Progress Note ---
Date of Service October 12, 2021 Assessment & Plan (1) Confusion: Plan: Acute illness has resolved, however, patient is still disoriented except to self. She has been intermittently receiving pain meds--will schedule tramadol now and try this despite her level of fatigue. Will also continue with course of cipro for Pseudomonas in her urine. Although this doesn't qualify for a treatable cystitis as not >100 CFU, she is confused and may respond to antibiotic therapy to clear this up. She has declined abx this morning, along with her other pills, however. Cont to reorient as needed. No delirium at this time. (2) Intractable vomiting with nausea: Plan: Nausea with some vomiting just began approximately 3 days ago after patient was taken off scheduled tramadol. She has a history of developing illness when she is in pain. She had been on scheduled tramadol since her recent operation in late August. She was doing well per son prior to correction placing her tramadol to as needed status. Another possible etiology would be a viral gastroenteritis. There is no evidence of colitis on CT abdomen pelvis and she has no abdominal pain. Stool studies reveal no evidence of infection. 10/10: nausea resolved, eating solid foods, some loose stool still present per nurse. Pt is clinically improved. Stool sample negative for infection. Gave some phos and will give K now. Recheck in am. 10/11: still confused, wondering if she is mentating close to baseline. Tolerating PO but poor appetite this am. She is very sleepy. Still attempting to get oral potassium into her for low K, switching to IV replacement. 10/12: lytes replaced. Still with low appetite. (3) Elevated troponin: Plan: Likely related to demand ischemia, echocardiogram ordered and compared to prior studies there was no significant change. No further work-up at this time. (4) Chronic anemia: Plan: Chronic, stable and around her baseline. Continues on warfarin which was restarted with INR 2.2 today. Check INR daily. (5) Rheumatoid arthritis: Plan: Chronic, stable, continue methotrexate and low-dose prednisone daily. (6) S/P TAVR (transcatheter aortic valve replacement): (7) CKD (chronic kidney disease) stage 3, GFR 30-59 ml/min: Plan: Chronic, stable. She is at her baseline. (8) Pneumonia: Plan: Ruled out and patient taken off antibiotics. (9) Urinary tract infection: Plan: Ruled out and taken off antibiotics. Patient has a history of C. difficile in 1 to limit antibiotics exposure. Want to avoid additional adverse side effects from antibiotic use. Then her urine culture on 10/10 revealed evidence of GNB so she was placed on Rocephin empirically. This grew Pseudomonas and diptheroids, so switched to cefepime. Although not >100CFU on culture, she is clinically still ill-appearing and would like to see if a few doses of antibiotics will perk her up. Cont monitoring for now. Transitioned to cipro. (10) DVT prophylaxis: Plan: Warfarin is therapeutic Full code Disposition-pending clinical improvement including ability to tolerate p.o. more reliably. Zeynep Hale DO [facility] Hospitalist Admission and Anticipated Discharge Date Admission Date: October 09, 2021 Subjective Patient is an 80-year-old female who presented from [facility] for evaluation of intractable nausea and vomiting over the past several days. She remains fatigued and is sleeping all morning Low appetite but no vomiting No loose stool per nurse Declined all her pills today Review of Systems Review of Systems: Confusion limited ROS but all systems were reviewed and negative except as indicated above. Physical Exam Physical Exam: CONSTITUTIONAL: WNWD, vitals as above, generally lethargic, NAD, will wake up and talk with me answering questions and able to follow instructions but she is disoriented and doesn't know where she is. EYES: normal conjunctivae, no scleral icterus ENT: external ear and nose normal, NECK: trachea midline, RESPIRATORY: clear to auscultation bilaterally, no crackles, rales or wheezes, normal respiratory effort CARDIOVASCULAR: regular rate and rhythm, S1 and 2 heard without murmurs, gallops or rubs, no JVD, no peripheral edema CHEST: inspection of chest was normal GASTROINTESTINAL: soft, nontender, ND, no guarding MUSCULOSKELETAL: 5/5 strength throughout, no gross focal deficits. SKIN: warm and dry NEUROLOGIC: CN 2-12 grossly intact, sleepy but awake and answering questions. Sensation intact, no gross focal neurologic deficit. PSYCHIATRIC: oriented to person only, She is cooperative with exam and able to follow instructions. Results & Data Results & Data ([facility]) Vital Signs (Past 12 Hours) Vital Signs Temp Pulse Resp BP Pulse Ox O2 Del Method 10/12/21 15:05 Room Air 10/12/21 14:49 36.9 C 101 H 20 155/77 H 98 Room Air 10/12/21 08:32 37.0 C 93 H 20 130/76 98 Room Air Laboratory Results BMP 10/12/21 05:43 Sodium 138 Potassium 3.9 D Chloride 111 H Carbon Dioxide 20 L BUN 9 Creatinine 0.66 Glucose 98 Calcium 7.9 L Medications Administered Current Inpatient Medications Acetaminophen (Acetaminophen 325 Mg Tab) 650 mg PO Q4H PRN PRN Reason: pain/fever Stop: 11/10/21 15:02 Amlodipine Besylate (Amlodipine Besylate 5 Mg Tab) 5 mg PO [facility] Stop: 11/11/21 20:59 Atorvastatin Calcium ([facility]atin 40 Mg Tab) [facility] [place]: 11/08/21 08:59 Last Admin: 10/12/21 11:53 Dose: Not Given Ciprofloxacin (Ciprofloxacin 250 Mg Tab) 250 mg PO Q12H [facility] Stop: 10/15/21 08:59 Last Admin: 10/12/21 11:53 Dose: Not Given Clopidogrel Bisulfate (Clopidogrel Bisulfate 75 Mg Tab) [facility] [place]: 11/09/21 08:59 Last Admin: 10/12/21 11:53 Dose: Not Given Ezetimibe (Ezetimibe 10 Mg Tablet) 10 mg PO [facility] Stop: 11/08/21 08:59 Last Admin: 10/12/21 11:55 Dose: Not Given Ferrous Sulfate (Ferrous Sulfate 325 Mg Tab) 325 mg PO BID [facility] Stop: 11/08/21 08:59 Last Admin: 10/12/21 11:56 Dose: Not Given Folic Acid (Folic Acid 1 Mg Tab) [facility] [place]: 11/08/21 08:59 Last Admin: 10/12/21 11:56 Dose: Not Given Gabapentin (Gabapentin 100 Mg Cap) 100 mg PO BID [facility] Stop: 11/08/21 08:59 Last Admin: 10/12/21 11:57 Dose: Not Given Hydrochlorothiazide (Hydrochlorothiazide 25 Mg Tab) 12.5 [facility] [place]: 11/10/21 08:59 Last Admin: 10/12/21 11:57 Dose: Not Given Levothyroxine Sodium (Levothyroxine Sodium 50 Mcg Tablet) [facility] Stop: 11/08/21 06:29 Last Admin: 10/12/21 11:53 Dose: Not Given Metoprolol Succinate (Metoprolol Succ 50mg Ext Rel Tab) 50 mg PO BID [facility] Stop: 11/08/21 08:59 Last Admin: 10/12/21 11:58 Dose: Not Given Nitroglycerin (Nitroglycerin Sl 0.4 Mg/Tab Tab) 0.4 mg SL Q5M PRN PRN Reason: Chest Pain Stop: 11/08/21 03:45 Ondansetron HCl (Ondansetron Inj 2 Mg/Ml 2 Ml Vial) 4 mg IV Q6H PRN PRN Reason: Nausea Stop: 11/08/21 03:45 Last Admin: 10/11/21 22:02 Dose: 4 mg Pantoprazole Sodium (Pantoprazole 40 Mg Tab) 40 mg PO QAM [facility] Stop: 11/08/21 08:59 Last Admin: 10/12/21 11:58 Dose: Not Given Polyethylene Glycol (Polyethylene (Miralax) 17 Gm Pack) 17 gm PO DAILY PRN PRN Reason: Constipation Stop: 11/08/21 03:45 Prednisone (Prednisone 5 Mg Tab) 5 mg PO DAILY [facility] Stop: 11/08/21 08:59 Last Admin: 10/12/21 11:58 Dose: Not Given Ropinirole HCl (Ropinirole Hcl 1 Mg Tablet) 3 mg PO HS PRN PRN Reason: restless legs Stop: 11/08/21 03:45 Last Admin: 10/11/21 21:19 Dose: 3 mg Warfarin Sodium (Warfarin Sod 2.5 Mg Tab) 2.5 mg PO [email or web address]@1600 [facility] Stop: 11/09/21 15:59 Warfarin Sodium (Warfarin Sod 1.25 Mg Tab) 1.25 mg PO TuTh@1600 [facility] Stop: 11/08/21 15:59 (1) Rheumatoid arthritis Rheumatoid arthritis location: unspecified site Rheumatoid factor presence: unspecified presence Qualified Code(s): M06.9 - Rheumatoid arthritis, unspecified
[2021-10-12] MEDS ORDERED: traMADol HCL 50 MG TABLET PO STA (15:18)
[2021-10-12] MEDS: WARFARIN SOD 2.5 MG TAB PO SCH (16:11)
[2021-10-12] MEDS: traMADol HCL 50 MG TABLET PO SCH (21:26)
[2021-10-12] MEDS: amLODIPine BESYLATE 5 MG TAB PO SCH (21:44)
[2021-10-12] MEDS: ONDANSETRON INJ 2 MG/ML 2 ML VIAL IV PRN (21:44)
[2021-10-13] MEDS: LEVOTHYROXINE SODIUM 50 MCG TABLET PO SCH (07:25)
[2021-10-13 07:50] LABS: Hematocrit (blood only) 29.4 % (34.1-44.9); Hemoglobin 9.8 g/dl (12.0-16.0); Mean Corpuscular Hemoglobin 34.3 pg (25.0-34.0); Mean Corpuscular Hgb Conc 33.3 g/dL (32.0-36.0); Mean Corpuscular Volume 102.8 fL (80.0-100.0); Platelet Count 131 K/uL (130-400); RDW Coefficient of Variation 18.1 % (11.5-14.5); RDW Standard Deviation 68.2 fL (36.4-46.3); Red Blood Count 2.86 M/uL (3.93-5.22); White Blood Count 5.73 K/ul (4.8-10.8)
[2021-10-13 08:00] LABS: INR 2.1 (0.9-1.1); Prothrombin Time 21.6 Seconds (9.0-12.0)
[2021-10-13] MEDS: CIPROFLOXACIN 250 MG TAB PO SCH ×2 (08:11→17:25)
[2021-10-13] MEDS: ATORVASTATIN 40 MG TAB PO SCH (08:11)
[2021-10-13] MEDS: METOPROLOL SUCC 50MG EXT REL TAB PO SCH ×2 (08:12→20:34)
[2021-10-13] MEDS: GABAPENTIN 100 MG CAP PO SCH ×2 (08:12→20:33)
[2021-10-13] MEDS: PANTOprazole 40 MG TAB PO SCH (08:12)
[2021-10-13] MEDS: FERROUS SULFATE 325 MG TAB PO SCH ×2 (08:12→20:33)
[2021-10-13] MEDS: FOLIC ACID 1 MG TAB PO SCH (08:12)
[2021-10-13] MEDS: EZETIMIBE 10 MG TABLET PO SCH (08:12)
[2021-10-13] MEDS: CLOPIDOGREL BISULFATE 75 MG TAB PO SCH (08:12)
[2021-10-13] MEDS: traMADol HCL 50 MG TABLET PO SCH ×2 (08:13→20:33)
[2021-10-13] MEDS: hydroCHLOROthiazide 25 MG TAB PO SCH (08:13)
[2021-10-13] MEDS: predniSONE 5 MG TAB PO SCH (08:13)
[2021-10-13 08:23] LABS: Creatinine Clr Calc Pharmacy 55.4 ml/min; Est GFR (African American) 97.5 ml/min; Est GFR (Non-African American) 84.1 ml/min; Potassium 3.8 mmol/L (3.5-5.1)
[2021-10-13 08:43] LABS: Folate (Folic Acid) > 22.30 ng/ml (>5.38)
[2021-10-13 08:44] LABS: Vitamin B12 1123 pg/ml (180-914)
--- NOTE | 2021-10-13 10:20 | Hospitalist Progress Note ---
Date of Service October 13, 2021 Assessment & Plan (1) Confusion: Plan: Acute illness has resolved, however, patient is still disoriented except to self. She is improved today after scheduled tramadol was started and with continued antibiotic for minimal Pseudomonas in urine. No delirium at this time. (2) Intractable vomiting with nausea: Plan: Resolved, likely etiology is withdrawal from pain medication versus acute gastroenteritis versus other. She is currently tolerating food and her appetite is improved today. (3) Elevated troponin: Plan: Likely related to demand ischemia, echocardiogram ordered and compared to prior studies there was no significant change. No further work-up at this time. (4) Chronic anemia: Plan: Chronic, stable and around her baseline. Continues on warfarin which was restarted with INR 2.2 today. Check INR daily. (5) Rheumatoid arthritis: Plan: Chronic, stable, continues on low dose prednisone. Hold MTX and leflunamide. (6) S/P TAVR (transcatheter aortic valve replacement): (7) CKD (chronic kidney disease) stage 3, GFR 30-59 ml/min: Plan: Chronic, stable. She is at her baseline. (8) Pneumonia: Plan: Ruled out and patient taken off antibiotics. (9) Urinary tract infection: Plan: Ruled out and taken off antibiotics. Patient has a history of C. difficile in 1 to limit antibiotics exposure. Want to avoid additional adverse side effects f rom antibiotic use. Then her urine culture on 10/10 revealed evidence of GNB so she was placed on Rocephin empirically. This grew Pseudomonas and diptheroids, so switched to cefepime. Although not >100CFU on culture, she is clinically still ill-appearing and would like to see if a few doses of antibiotics will perk her up. Cont monitoring for now. Transitioned to cipro. (10) DVT prophylaxis: Plan: Warfarin is therapeutic Full code Disposition-pending clinical improvement including ability to tolerate p.o. more reliably. If she remains clinically improved tomorrow, will send back to [place] with continued PT, discussed this plan with son who is at bedside. Also discussed her RA regimen with Dr. Tamayo to clarify should she be taking both MTX and leflunamide. Awaiting an answer to the query. Cont holding both for now. Zeynep Hale DO [facility] Ad[facility] and Anticipated Discharge Date Admission Date: October 09, 2021 Subjective Patient is an 80-year-old female who presented from [facility] for evaluation of intractable nausea and vomiting over the past several days. She appears brighter today She is still disoriented to place and time and does not remember coming to the hospital She states she feels better overall and denies any pain or other symptoms. Per PT note yesterday she had 1 episode of stool incontinence with exercise Son is at bedside today and feels she looks better also Review of Systems Review of Systems: All systems reviewed negative except as indicated above. Physical Exam Physical Exam: CONSTITUTIONAL: WNWD, vitals as above, NAD, appears more energetic EYES: normal conjunctivae, no scleral icterus ENT: external ear and nose normal, NECK: trachea midline, RESPIRATORY: clear to auscultation bilaterally, no crackles, rales or wheezes, normal respiratory effort CARDIOVASCULAR: regular rate and rhythm, S1 and 2 heard without murmurs, gallops or rubs, no JVD, no peripheral edema CHEST: inspection of chest was normal GASTROINTESTINAL: soft, nontender, ND, no guarding MUSCULOSKELETAL: 5/5 strength throughout, no gross focal deficits. SKIN: warm and dry NEUROLOGIC: CN 2-12 grossly intact, sleepy but awake and answering questions. Sensation intact, no gross focal neurologic deficit. PSYCHIATRIC: oriented to person only, She is cooperative with exam and able to follow instructions. Results & Data Results & Data ([facility]) Vital Signs (Past 12 Hours) Vital Signs Temp Pulse Resp BP Pulse Ox O2 Del Method 10/13/21 08:00 Room Air 10/13/21 08:25 36.8 C 75 18 150/68 H 95 Room Air 10/12/21 23:57 Room Air 10/12/21 22:39 37 C 85 18 127/72 94 Room Air Laboratory Results Short CBC 10/13/21 Range/Units 07:31 WBC 5.73 (4.8-10.8) K/ul Hgb 9.8 L (12.0-16.0) g/dl Hct 29.4 L (34.1-44.9) % Plt Count 131 (130-400) K/uL BMP 10/13/21 07:31 Sodium 139 Potassium 3.8 Chloride 110 H Carbon Dioxide 23 BUN 12 Creatinine 0.63 Glucose 89 Calcium 8.0 L Medications Administered Current Inpatient Medications Acetaminophen (Acetaminophen 325 Mg Tab) 650 mg PO Q4H PRN PRN Reason: pain/fever Stop: 11/10/21 15:02 Amlodipine Besylate (Amlodipine Besylate 5 Mg Tab) 5 mg PO HS [facility] Stop: 11/11/21 20:59 Last Admin: 10/12/21 21:44 Dose: 5 mg Atorvastatin Calcium (Atorvastatin 40 Mg Tab) 40 mg PO QAM [facility] Stop: 11/08/21 08:59 Last Admin: 10/13/21 08:11 Dose: 40 mg Ciprofloxacin (Ciprofloxacin 250 Mg Tab) 250 mg PO Q12H [facility] Stop: 10/15/21 08:59 Last Admin: 10/13/21 08:11 Dose: 250 mg Clopidogrel Bisulfate (Clopidogrel [facility]ate 75 Mg Tab) [facility] Stop: 11/09/21 08:59 Last Admin: 10/13/21 08:12 Dose: 75 mg Ezetimibe (Ezetimibe 10 Mg Tablet) [facility] Stop: 11/08/21 08:59 Last Admin: 10/13/21 08:12 Dose: 10 mg Ferrous Sulfate (Ferrous Sulfate 325 Mg Tab) 325 mg PO BID [facility] Stop: 11/08/21 08:59 Last Admin: 10/13/21 08:12 Dose: 325 mg Folic Acid (Folic Acid 1 Mg Tab) [facility] Stop: 11/08/21 08:59 Last Admin: 10/13/21 08:12 Dose: 2 mg Gabapentin (Gabapentin 100 Mg Cap) 100 mg PO BID [facility] Stop: 11/08/21 08:59 Last Admin: 10/13/21 08:12 Dose: 100 mg Hydrochlorothiazide (Hydrochlorothiazide 25 Mg Tab) 12.[facility] Stop: 11/10/21 08:59 Last Admin: 10/13/21 08:13 Dose: 12.5 mg Levothyroxine Sodium (Levothyroxine Sodium 50 Mcg Tablet) 50 mcg PO DAILYBB [facility] Stop: 11/08/21 06:29 Last Admin: 10/13/21 07:25 Dose: 50 mcg Metoprolol Succinate (Metoprolol Succ 50mg Ext Rel Tab) 50 mg PO BID [facility] Stop: 11/08/21 08:59 Last Admin: 10/13/21 08:12 Dose: 50 mg Nitroglycerin (Nitroglycerin Sl 0.4 Mg/Tab Tab) 0.4 mg SL Q5M PRN PRN Reason: Chest Pain Stop: 11/08/21 03:45 Ondansetron HCl (Ondansetron Inj 2 Mg/Ml 2 Ml Vial) 4 mg IV Q6H PRN PRN Reason: Nausea Stop: 11/08/21 03:45 Last Admin: 10/12/21 21:44 Dose: 4 mg Pantoprazole Sodium (Pantoprazole 40 Mg Tab) 40 mg PO QAM [facility] Stop: 11/08/21 08:59 Last Admin: 10/13/21 08:12 Dose: 40 mg Polyethylene Glycol (Polyethylene (Miralax) 17 Gm Pack) 17 gm PO DAILY PRN PRN Reason: Constipation Stop: 11/08/21 03:45 Prednisone (Prednisone 5 Mg Tab) 5 mg PO DAILY [facility] Stop: 11/08/21 08:59 Last Admin: 10/13/21 08:13 Dose: 5 mg Ropinirole HCl (Ropinirole Hcl 1 Mg Tablet) 3 mg PO HS PRN PRN Reason: restless legs Stop: 11/08/21 03:45 Last Admin: 10/11/21 21:19 Dose: 3 mg Tramadol HCl (Tramadol Hcl 50 Mg Tablet) 50 mg PO BID [facility] Stop: 11/11/21 20:59 Last Admin: 10/13/21 08:13 Dose: 50 mg Warfarin Sodium (Warfarin Sod 2.5 Mg Tab) 2.5 mg PO SuMoWeFrSa@1600 [facility] Stop: 11/09/21 15:59 Last Admin: 10/12/21 16:11 Dose: 2.5 mg Warfarin Sodium (Warfarin Sod 1.25 Mg Tab) 1.25 mg PO TuTh@1600 [facility] Stop: 11/08/21 15:59 (1) Rheumatoid arthritis Rheumatoid arthritis location: unspecified site Rheumatoid factor presence: unspecified presence Qualified Code(s): M06.9 - Rheumatoid arthritis, unspecified
[2021-10-13] MEDS: WARFARIN SOD 2.5 MG TAB PO SCH (15:57)
[2021-10-13] MEDS: ONDANSETRON INJ 2 MG/ML 2 ML VIAL IV PRN (20:29)
[2021-10-13] MEDS: amLODIPine BESYLATE 5 MG TAB PO SCH (20:33)
[2021-10-14] MEDS: LEVOTHYROXINE SODIUM 50 MCG TABLET PO SCH (05:03)
[2021-10-14 07:03] LABS: Hematocrit (blood only) 29.4 % (34.1-44.9); Hemoglobin 9.7 g/dl (12.0-16.0); Mean Corpuscular Hemoglobin 33.7 pg (25.0-34.0); Mean Corpuscular Volume 102.1 fL (80.0-100.0); Platelet Count 142 K/uL (130-400); RDW Coefficient of Variation 17.8 % (11.5-14.5); RDW Standard Deviation 66.8 fL (36.4-46.3); Red Blood Count 2.88 M/uL (3.93-5.22); White Blood Count 6.16 K/ul (4.8-10.8)
[2021-10-14 07:34] LABS: BUN Creatinine Ratio 19.4 (10-20); Calcium 8.2 mg/dl (8.5-10.1); Creatinine Clr Calc Pharmacy 48.5 ml/min; Est GFR (Non-African American) 78.5 ml/min; Potassium 3.4 mmol/L (3.5-5.1)
[2021-10-14] MEDS: hydroCHLOROthiazide 25 MG TAB PO SCH (08:07)
[2021-10-14] MEDS: ATORVASTATIN 40 MG TAB PO SCH (08:07)
[2021-10-14] MEDS: EZETIMIBE 10 MG TABLET PO SCH (08:07)
[2021-10-14] MEDS: CLOPIDOGREL BISULFATE 75 MG TAB PO SCH (08:07)
[2021-10-14] MEDS: predniSONE 5 MG TAB PO SCH (08:07)
[2021-10-14] MEDS: PANTOprazole 40 MG TAB PO SCH (08:07)
[2021-10-14] MEDS: FOLIC ACID 1 MG TAB PO SCH (08:07)
[2021-10-14] MEDS: FERROUS SULFATE 325 MG TAB PO SCH (08:08)
[2021-10-14] MEDS: GABAPENTIN 100 MG CAP PO SCH (08:08)
[2021-10-14] MEDS: CIPROFLOXACIN 250 MG TAB PO SCH (08:08)
[2021-10-14] MEDS: METOPROLOL SUCC 50MG EXT REL TAB PO SCH (08:08)
[2021-10-14] MEDS: traMADol HCL 50 MG TABLET PO SCH (08:09)
--- NOTE | 2021-10-14 14:04 | Discharge Summary ---
Date of Service October 14, 2021 Principal Diagnosis confusion vomiting bacteriuria Discharge Exam CONSTITUTIONAL: WNWD, vitals as above, NAD, appears more energetic EYES: normal conjunctivae, no scleral icterus ENT: external ear and nose normal, NECK: trachea midline, RESPIRATORY: clear to auscultation bilaterally, no crackles, rales or wheezes, normal respiratory effort CARDIOVASCULAR: regular rate and rhythm, S1 and 2 heard without murmurs, gallops or rubs, no JVD, no peripheral edema CHEST: inspection of chest was normal GASTROINTESTINAL: soft, nontender, ND, no guarding MUSCULOSKELETAL: 5/5 strength throughout, no gross focal deficits. SKIN: warm and dry NEUROLOGIC: CN 2-12 grossly intact, sleepy but awake and answering questions. Sensation intact, no gross focal neurologic deficit. PSYCHIATRIC: oriented to person only, She is cooperative with exam and able to follow instructions. Discharge Data Allergies Allergy/AdvReac Type Severity Reaction Status Date / Time baclofen Allergy Mild DIZZY Verified 09/11/21 10:24 Penicillins Allergy Mild RASH Verified 09/11/21 10:24 Sulfa (Sulfonamide Allergy Mild HEADACHE Verified 09/11/21 10:24 Antibiotics) Consultations 10/09/21 00:39 ED Decision to Admit Stat Ordered Studies 10/08/21 22:06 CT abd pelvis IV con only Urgent 10/11/21 16:05 CT head/brain wo con Urgent Hospital Course (1) Confusion: Acute illness has resolved, however, patient is still disoriented except to self. She is improved today after scheduled tramadol was started and with continued antibiotic for minimal Pseudomonas in urine. No delirium with clinical improvement seen for at least 48 hours prior to discharge. (2) Intractable vomiting with nausea: Resolved, likely etiology is withdrawal from pain medication versus acute gastroenteritis versus other. She is currently tolerating food and her appetite is improved. (3) Elevated troponin: Likely related to demand ischemia, echocardiogram ordered and compared to prior studies there was no significant change. No further work-up at this time. (4) Chronic anemia: Chronic, stable and around her baseline. Continues on warfarin which was restarted. Check frequently. (5) Rheumatoid arthritis: Chronic, stable, continues on low dose prednisone. Held MTX and leflunamide during hospital stay; both were restarted at discharge. Followup with rheumatology. (6) S/P TAVR (transcatheter aortic valve replacement): (7) CKD (chronic kidney disease) stage 3, GFR 30-59 ml/min: Chronic, stable. She is at her baseline. (8) Pneumonia: Ruled out and patient taken off antibiotics. (9) Urinary tract infection: Ruled out and taken off antibiotics initially. Patient has a history of C. difficile in 1 to limit antibiotics exposure. Want to avoid additional adverse side effects from antibiotic use. Then her urine culture on 10/10 revealed evidence of GNB so she was placed on Rocephin empirically. This grew Pseudomonas and diptheroids, so switched to cefepime. Although not >100CFU on culture, she is clinically still ill-appearing and would like to see if a few doses of antibiotics will perk her up. Transitioned to cipro to complete a short course. Total Time Total Time Spent Total Time Spent (In Minutes): 60 Discharge Plan Discharge Items Patient Disposition: Personal Halfway Reason For Visit: N/V Discharge Diagnosis: confusion vomiting bacteriuria Condition on Discharge: Good Activity: Resume your previous activity Non-emergency contact: Primary Care Provider Call non-emergency contact if: you have any medication questions, your symptoms worsen, your pain is not controlled, your pain is worsening, your pain is unusual for you, your pain is concerning for you and you have a fever Follow-up/Referrals: [facility] [Primary Care Provider] - Diet: Heart Healthy Diet Texture: Easy to Chew Addtl Attending Provider Instructions: Please take all medications as instructed on discharge list below. You are being given an additional 3 days of antibiotics to take for the bacteria that was found in your urine. Please continue to take Tramadol twice daily as scheduled. Your blood pressure medication has changed. Please review with your primary care provider. Blood work may be needed in 2 weeks for monitoring (BMP) Please follow-up with your primary care physician in one week to ensure you are feeling better since returning home. It was a pleasure taking care of you! Please call if you have any questions or problems. You can reach a [facility] hospitalist on duty at [facility] 24 hours a day by calling [phone]. Take care of yourself. Zeynep Hale, DO [facility] Hospitalist Pending Studies at Discharge: No Stand-Alone Forms: My [facility] Skilled Items Patient informed of condition?: Yes DNR: No Discharge Level of Care: Skilled Communicable Disease: No Discharge Prognosis: Stable Lines: None Urinary Catheter: No Medications and DC Order Prescriptions: New ciprofloxacin HCl 250 mg Tablet 250 mg PO Q12H Qty: 6 0RF Continued atorvastatin 40 mg tablet 40 mg PO QAM metoprolol succinate 50 mg tablet extended release 24 hr 50 mg PO BID folic acid 1 mg Tablet 2 mg PO QAM methotrexate sodium 2.5 mg tablet 10 mg PO FR clopidogrel 75 mg tablet 75 mg PO QAM pantoprazole 40 mg tablet,delayed release (DR/EC) 40 mg PO QAM ezetimibe 10 mg tablet 10 mg PO QAM leflunomide 20 mg tablet 20 mg PO QAM ferrous sulfate 325 mg (65 mg iron) tablet 325 mg PO BID tramadol 50 mg tablet 50 mg PO BID levothyroxine 50 mcg tablet 50 mcg PO QAM warfarin 2.5 mg Tablet See Rx Instructions .ROUTE .COMPLEX Rx Instructions: Take 1/2 tablet on Wednesday and at 5pm. Take 1 tablet on the other 5 days. ropinirole 3 mg tablet 3 mg PO HS PRN (Reason: restless legs) gabapentin 100 mg capsule 100 mg PO BID prednisone 5 mg 5 mg PO DAILY Changed amlodipine [Norvasc] 5 mg Tablet 5 mg PO HS Qty: 30 1RF hydrochlorothiazide 25 mg tablet 12.5 mg PO DAILY Qty: 30 0RF Discontinued acetaminophen-codeine 300-30 mg tablet 1 tab PO BID PRN (Reason: Pain) Discharge Orders: Discharge Order (Routine); Ordered 10/14/21 Ordered By: Zeynep Hale Admission Data Admit Date/Time: 10/09/21 02:30 Attending Provider: Zeynep Hale Admit Provider: Juan Francisco Liu Primary Care Provider: [facility] Other Interventions: Discharge Summary Assessment (RN) Last Done: 10/14/21 14:07
== END 2021-10-14 14:36 | disposition home or self-care (01) | DRG 897 ==
LOC: ED 19:26 → 2N 10-09 02:30

== ENCOUNTER 2021-10-26 15:34 | Inpatient (IN) ==
[2021-10-26] MEDS ORDERED: ONDANSETRON INJ 2 MG/ML 2 ML VIAL IV STA (15:57)
[2021-10-26] MEDS ORDERED: SODIUM CHLORIDE 0.9% 500 ML IV SCH (16:00)
--- NOTE | 2021-10-26 16:01 | Emergency Department Note ---
Impression & Plan Weakness, Altered mental status, Vomiting, Coagulopathy, Elevated troponin, Hypokalemia, Acute electrocardiogram changes ED Provider Note NAME: MARCELLA YOUNGBLOOD AGE: 80 SEX: F : 1940 ARRIVES VIA: Ambulance INFORMANT: Patient, nursing, ems ED PROVIDER(S): [Vitaliy Tavera MD] CHIEF COMPLAINT: Altered mental status, vomiting HISTORY OF PRESENT ILLNESS: The patient is an 80-year-old female who presents to the ER with a week of vomiting and some altered mental status. She has been more fatigued and has appeared more pale. She does use Coumadin on a regular basis. The patient currently denies any pain. She does not currently feel nauseated. She is not short of breath. She has no chest pain. The patient denies bloody or black stool, she denies blood in the vomitus. The patient is a poor historian, most of the history was obtained from the nursing staff and EMS, no further history obtainable. REVIEW OF SYSTEMS: Unobtainable given the mental state. PMHx/PSHx: See Below SOCIAL HISTORY: See Below. PHYSICAL EXAM: GENERAL: Patient is in no acute distress. HEENT: No acute trauma, normocephalic atraumatic, mucous membranes moist, no nasal congestion, no scleral icterus. NECK: No stridor, no adenopathy, no meningismus, trachea is midline. LUNGS: Clear to auscultation bilaterally, no wheeze, no rhonchi, breath sounds equal. HEART: Slightly irregular rhythm, subtle systolic murmur, normal rate. ABDOMEN: Soft, nontender, bowel sounds positive, no peritonitis. EXTREMITIES: No cyanosis or edema, full range of motion of all the joints wi thout pain or difficulty, no signs for acute trauma. NEUROLOGIC: Awake and alert, no acute motor or sensory deficits, no focal weakness. SKIN: No rash, no jaundice, no diaphoresis. Pale. DIFFERENTIAL DIAGNOSIS: Infection, dehydration, UTI, metabolic abnormality, hypo/hyperglycemia, electrolyte disturbance, anemia, hypoxia, cardiac sources, intracerebral event, toxicologic issues, stroke, TIA, as well as other pathologies. EMERGENCY DEPARTMENT COURSE/PROCEDURES: ECG: Indication was weakness. The ECG shows a sinus rhythm with a rate of 78. There is a first-degree AV block. PVCs are present. There is a left bundle branch block. There is no ST elevation. There are inverted T waves noted laterally. The QTC is 503. Compared to an ECG from 09 October 2021, criteria for the left bundle branch block is now present. The lateral T wave inversions are new. The first-degree AV block is now present. PVCs are now present. Continuous Cardiac Monitoring: An order was placed for continuous cardiac monitoring. The monitor shows a rate of 70 with sinus rhythm with a first- degree AV block and PVCs. MEDICAL DECISION MAKING: There is no leukocytosis. A very mild anemia was noted. There was a normal platelet count. INR was quite elevated at 9.1, the patient is over anticoagulated. Potassium and sodium were both somewhat low. No renal failure. There were some very subtle liver enzyme elevations. Ammonia level was not elevated. ECG showed a sinus rhythm. No ST elevation. Today's ECG was somewhat changed compared to previous ECGs. Cardiac enzyme testing x1 was slightly elevated. The patient has had prior troponin elevations when looking back at previous testing. Patient appeared to be in euthyroid state. Urinalysis did not show infection. COVID test returned negative. Brain CT showed no acute bleed or mass-effect. Abdominal and pelvis CT did not show a bowel obstruction, no signs of acute surgical pathology. Chest x-ray did not show pneumonia or CHF. Patient received IV saline for hydration, she was given 1 L. She was given IV potassium and IV Zofran. She received IV vitamin K. The patient presents with vomiting and a change in mental status. She is over anticoagulated. She is hypokalemic. She is likely dehydrated. I do think given her findings that a hospital stay is warranted. 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 The on-call hospitalist was consulted. Past Med/Surg History Medical History Anemia C. difficile colitis Chronic anticoagulation CKD (chronic kidney disease) stage 3, GFR 30-59 ml/min Confusion Diverticular disease hx diverticulitis Fall GERD (gastroesophageal reflux disease) HLD (hyperlipidemia) HTN (hypertension) Lumbar disc herniation with radiculopathy Lumbar radiculopathy NSVT (nonsustained ventricular tachycardia) Obstructive sleep apnea WEARS O2 AT 2L AT HS On home oxygen therapy 2L AT HS Rheumatoid arthritis RLS (restless legs syndrome) Severe aortic stenosis prior to TAVR SVT (supraventricular tachycardia) Thrombocytopenia Thrombocytopenia Surgical History H/O colonoscopy H/O eye surgery LEFT History of carpal tunnel surgery RT/LEFT History of esophagogastroduodenoscopy (EGD) History of heart artery stent 03/18/2020-TYLER x 2 to LAD History of lumbar fusion History of tooth extraction History of total knee replacement RT/LEFT S/P CHANNING-BSO S/P TAVR (transcatheter aortic valve replacement) Family History Other Heart disease No family history of adverse response to anesthesia Rheumatoid arthritis Social History Smoking Status: Former smoker Tobacco Type: Cigarettes Second Hand Exposure: Yes (IN THE PAST); Hx Alcohol Use: No Hx Substance Use: No Preferred Language: [place] Communication Ability: Effective 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 Analyst Required: No Beliefs That Will Affect Care: None marital status: / Current Living Situation: [facility] Current Living Situation Comment: Lives with How many Children do You have: 1 Feels Safe at Home: Yes Assistive Devices: Walker Allergies Allergies Allergy/AdvReac Type Severity Reaction Status Date / Time baclofen Allergy Mild DIZZY Verified 09/11/21 10:24 Penicillins Allergy Mild RASH Verified 09/11/21 10:24 Sulfa (Sulfonamide Allergy Mild HEADACHE Verified 09/11/21 10:24 Antibiotics) Home Meds Home Medications Medication Instructions Recorded Confirmed atorvastatin 40 mg tablet 40 mg PO QAM 07/01/18 10/09/21 metoprolol succinate 50 mg 50 mg PO BID 07/01/18 10/09/21 tablet,extended release 24 hr folic acid 1 mg tablet 2 mg PO QAM 10/17/19 10/09/21 methotrexate sodium 2.5 mg tablet 10 mg PO FR 11/14/19 10/09/21 clopidogrel 75 mg tablet 75 mg PO QAM 05/09/20 10/09/21 ezetimibe 10 mg tablet 10 mg PO QAM 04/21/21 10/09/21 pantoprazole 40 mg tablet,delayed 40 mg PO QAM 04/21/21 10/09/21 release warfarin 2.5 mg tablet See Rx Instructions .Route .COMPLEX 05/04/21 10/09/21 ferrous sulfate 325 mg (65 mg 325 mg PO BID 08/21/21 10/09/21 iron) tablet leflunomide 20 mg tablet 20 mg PO QAM 08/21/21 10/09/21 tramadol 50 mg tablet 50 mg PO BID 08/21/21 10/09/21 levothyroxine 50 mcg tablet 50 mcg PO QAM 09/03/21 10/09/21 gabapentin 100 mg capsule 100 mg PO BID 10/09/21 10/09/21 prednisone 5 mg PO DAILY 10/09/21 10/09/21 ropinirole 3 mg tablet 3 mg PO HS PRN restless legs 10/09/21 10/10/21 Previous Rx's Medication Instructions Recorded amlodipine 5 mg tablet (Norvasc) 5 mg PO HS #30 tabs 10/14/21 ciprofloxacin HCl 250 mg tablet 250 mg PO Q12H #6 tabs 10/14/21 hydrochlorothiazide 25 mg tablet 12.5 mg PO DAILY #30 tabs 10/14/21 Results & Data (ED) Vital Signs Vital Signs - 24 hr 10/26/21 15:29 10/26/21 15:29 10/26/21 15:29 Temperature 36.6 C Temperature Source Oral Pulse Rate 78 70 Pulse Rate from SpO2 Sensor Respiratory Rate 20 20 Respiratory Effort / Characteristics Non-Labored Spontaneous Respiratory Depth Normal Respiratory Pattern Regular Blood Pressure 147/60 H Blood Pressure Mean 89 Blood Pressure Position Sitting Pulse Oximetry 99 99 99 Oxygen Delivery Method Room Air Room Air Room Air Sepsis Recent Fever Within 48 Hours No Sepsis New/Unexplained Change in Mental Status Yes Sepsis Action Taken by Nursing No Action Required 10/26/21 15:57 10/26/21 15:51 10/26/21 16:01 Temperature Temperature Source Pulse Rate 70 68 Pulse Rate from SpO2 Sensor Respiratory Rate 20 14 Respiratory Effort / Characteristics Respiratory Depth Respiratory Pattern Blood Pressure 144/80 H 147/80 H Blood Pressure Mean 101 102 Blood Pressure Position Pulse Oximetry 99 96 Oxygen Delivery Method Room Air Sepsis Recent Fever Within 48 Hours Sepsis New/Unexplained Change in Mental Status Sepsis Action Taken by Nursing 10/26/21 19:01 Temperature Temperature Source Pulse Rate 83 Pulse Rate from SpO2 Sensor 67 Respiratory Rate 19 Respiratory Effort / Characteristics Respiratory Depth Respiratory Pattern Blood Pressure 139/73 Blood Pressure Mean 95 Blood Pressure Position Pulse Oximetry 94 Oxygen Delivery Method Sepsis Recent Fever Within 48 Hours Sepsis New/Unexplained Change in Mental Status Sepsis Action Taken by [facility] Medications Current Medication List: was personally reviewed by me Laboratory Data Attestation: I reviewed the patient's lab results. Result diagrams: 10/26/21 16:05 10/26/21 16:05 Lab Results 10/26/21 10/26/21 10/26/21 Range/Units 16:05 16:05 16:05 WBC 7.84 (4.8-10.8) K/ul RBC 3.42 L (3.93-5.22) M/uL Hgb 11.5 L (12.0-16.0) g/dl Hct 34.3 (34.1-44.9) % MCV 100.3 H (80.0-100.0) fL MCH 33.6 (25.0-34.0) pg MCHC 33.5 (32.0-36.0) g/dL RDW Std Deviation 60.2 H (36.4-46.3) fL RDW Coeff of Keila 16.2 H (11.5-14.5) % Plt Count 149 (130-400) K/uL MPV 10.4 (9.4-12.3) fL Immature Gran % (Auto) 0.5 % Neut % (Auto) 74.1 % Lymph % (Auto) 9.7 % [place] % (Auto) 12.6 % Eos % (Auto) 2.2 % Baso % (Auto) 0.9 % Neut # (Auto) 5.81 (1.4-6.5) K/uL Lymph # (Auto) 0.76 L (1.2-3.4) K/uL [place] # (Auto) 0.99 H (0.24-0.82) K/uL Eos # (Auto) 0.17 (0-0.50) K/uL Baso # (Auto) 0.07 (0-0.2) K/uL Immature Gran # (Auto) 0.04 H (0.00-0.02) K/uL PT 85.8 H (9.0-12.0) Seconds INR 9.1 H* (0.9-1.1) APTT 48.7 H* (21.0-31.0) Seconds PTT Ratio 1.8 Sodium 135 L (136-145) mmol/L Potassium 3.2 L (3.5-5.1) mmol/L Chloride 100 (98-107) mmol/L Carbon Dioxide 24 (21-32) mmol/L Anion Gap 11 (3-11) BUN 17 (6-23) mg/dl Creatinine 0.98 (0.6-1.2) mg/dl Est Cr Clr Drug Dosing 35.6 ml/min Est GFR ( Amer) 62.7 ml/min Est GFR (Non-Af Amer) 54.1 ml/min BUN/Creatinine Ratio 17.3 (10-20) Glucose 115 H (70-99(Fasting)) mg/dl POC Glucose (70-99) mg/dl Calcium 8.7 (8.5-10.1) mg/dl Magnesium 1.7 (1.7-2.4) mg/dl Total Bilirubin 1.3 H (0.2-1.0) mg/dl AST 40 H (13-39) U/L ALT 15 (7-52) U/L Alkaline Phosphatase 97 (34-104) U/L Ammonia (18-72) umol/L Troponin I High Sens 53.9 H* (0-14) pg/ml Total Protein 6.3 (6.0-8.3) gm/dl Albumin 3.6 (3.4-5.0) gm/dl Globulin 2.7 (2.5-4.0) gm/dl Albumin/Globulin Ratio 1.3 (0.9-2) TSH (0.300-4.500) uIu/ml Urine Color Urine Appearance (Clear) Urine pH (4.5-7.5) Ur Specific [place] (1.000-1.030) Urine Protein (Negative) Urine Glucose (UA) (Negative) Urine Ketones (Negative) Urine Blood (Negative) Urine Nitrite (Negative) Urine Bilirubin (Negative) Urine Urobilinogen (Negative) Ur Leukocyte Esterase (Negative) SARS-CoV-2, RNA, NAAT (NEGATIVE) 10/26/21 10/26/21 10/26/21 Range/Units 16:05 16:12 16:25 WBC (4.8-10.8) K/ul RBC (3.93-5.22) M/uL Hgb (12.0-16.0) g/dl Hct (34.1-44.9) % MCV (80.0-100.0) fL MCH (25.0-34.0) pg MCHC (32.0-36.0) g/dL RDW Std Deviation (36.4-46.3) fL RDW Coeff of Keila (11.5-14.5) % Plt Count (130-400) K/uL MPV (9.4-12.3) fL Immature Gran % (Auto) % Neut % (Auto) % Lymph % (Auto) % [place] % (Auto) % Eos % (Auto) % Baso % (Auto) % Neut # (Auto) (1.4-6.5) K/uL Lymph # (Auto) (1.2-3.4) K/uL [place] # (Auto) (0.24-0.82) K/uL Eos # (Auto) (0-0.50) K/uL Baso # (Auto) (0-0.2) K/uL Immature Gran # (Auto) (0.00-0.02) K/uL PT (9.0-12.0) Seconds INR (0.9-1.1) APTT (21.0-31.0) Seconds PTT Ratio Sodium (136-145) mmol/L Potassium (3.5-5.1) mmol/L Chloride (98-107) mmol/L Carbon Dioxide (21-32) mmol/L Anion Gap (3-11) BUN (6-23) mg/dl Creatinine (0.6-1.2) mg/dl Est Cr Clr Drug Dosing ml/min Est GFR ( Amer) ml/min Est GFR (Non-Af Amer) ml/min BUN/Creatinine Ratio (10-20) Glucose (70-99(Fasting)) mg/dl POC Glucose 118 H (70-99) mg/dl Calcium (8.5-10.1) mg/dl Magnesium (1.7-2.4) mg/dl Total Bilirubin (0.2-1.0) mg/dl AST (13-39) U/L ALT (7-52) U/L Alkaline Phosphatase (34-104) U/L Ammonia (18-72) umol/L Troponin I High Sens (0-14) pg/ml Total Protein (6.0-8.3) gm/dl Albumin (3.4-5.0) gm/dl Globulin (2.5-4.0) gm/dl Albumin/Globulin Ratio (0.9-2) TSH 4.076 (0.300-4.500) uIu/ml Urine Color Urine Appearance (Clear) Urine pH (4.5-7.5) Ur Specific [place] (1.000-1.030) Urine Protein (Negative) Urine Glucose (UA) (Negative) Urine Ketones (Negative) Urine Blood (Negative) Urine Nitrite (Negative) Urine Bilirubin (Negative) Urine Urobilinogen (Negative) Ur Leukocyte Esterase (Negative) SARS-CoV-2, RNA, NAAT NEGATIVE (NEGATIVE) 10/26/21 10/26/21 Range/Units 17:34 19:05 WBC (4.8-10.8) K/ul RBC (3.93-5.22) M/uL Hgb (12.0-16.0) g/dl Hct (34.1-44.9) % MCV (80.0-100.0) fL MCH (25.0-34.0) pg MCHC (32.0-36.0) g/dL RDW Std Deviation (36.4-46.3) fL RDW Coeff of Keila (11.5-14.5) % Plt Count (130-400) K/uL MPV (9.4-12.3) fL Immature Gran % (Auto) % Neut % (Auto) % Lymph % (Auto) % [place] % (Auto) % Eos % (Auto) % Baso % (Auto) % Neut # (Auto) (1.4-6.5) K/uL Lymph # (Auto) (1.2-3.4) K/uL [place] # (Auto) (0.24-0.82) K/uL Eos # (Auto) (0-0.50) K/uL Baso # (Auto) (0-0.2) K/uL Immature Gran # (Auto) (0.00-0.02) K/uL PT (9.0-12.0) Seconds INR (0.9-1.1) APTT (21.0-31.0) Seconds PTT Ratio Sodium (136-145) mmol/L Potassium (3.5-5.1) mmol/L Chloride (98-107) mmol/L Carbon Dioxide (21-32) mmol/L Anion Gap (3-11) BUN (6-23) mg/dl Creatinine (0.6-1.2) mg/dl Est Cr Clr Drug Dosing ml/min Est GFR ( Amer) ml/min Est GFR (Non-Af Amer) ml/min BUN/Creatinine Ratio (10-20) Glucose (70-99(Fasting)) mg/dl POC Glucose (70-99) mg/dl Calcium (8.5-10.1) mg/dl Magnesium (1.7-2.4) mg/dl Total Bilirubin (0.2-1.0) mg/dl AST (13-39) U/L ALT (7-52) U/L Alkaline Phosphatase (34-104) U/L Ammonia 50.0 (18-72) umol/L Troponin I High Sens (0-14) pg/ml Total Protein (6.0-8.3) gm/dl Albumin (3.4-5.0) gm/dl Globulin (2.5-4.0) gm/dl Albumin/Globulin Ratio (0.9-2) TSH (0.300-4.500) uIu/ml Urine Color Yellow Urine Appearance Clear (Clear) Urine pH 5.5 (4.5-7.5) Ur Specific [place] 1.016 (1.000-1.030) Urine Protein Negative (Negative) Urine Glucose (UA) Negative (Negative) Urine Ketones Negative (Negative) Urine Blood Negative (Negative) Urine Nitrite Negative (Negative) Urine Bilirubin Negative (Negative) Urine Urobilinogen Negative (Negative) Ur Leukocyte Esterase Negative (Negative) SARS-CoV-2, RNA, NAAT (NEGATIVE) Administered Medications Amlodipine Besylate (Amlodipine Besylate 5 Mg Tab) 5 mg PO HS STEPHANIE Stop: 11/25/21 22:35 Last Admin: 10/26/21 23:31 Dose: 5 mg Documented By: MAYE Lactated Ringer's (Lr) 1,000 mls @ 50 mls/hr IV .Q20H ONE Stop: 10/27/21 16:40 Last Admin: 10/26/21 23:26 Dose: 50 mls/hr Documented By: MAYE Metoprolol Succinate (Metoprolol Succ 50mg Ext Rel Tab) 50 mg PO BID STEPHANIE Stop: 11/25/21 22:35 Last Admin: 10/26/21 23:31 Dose: 50 mg Documented By: CB Discontinued Medications Sodium Chloride (Nss) 500 mls @ 999 mls/hr IV .Q31M STEPHANIE Stop: 10/26/21 16:30 Last Infusion: 10/26/21 21:22 Dose: 0 mls/hr Documented By: Admin: 10/26/21 18:04 Dose: 999 mls/hr Documented By: GAMAL Potassium Chloride (K Chandana / Wtr) 10 meq in 100 mls @ 100 mls/hr IV ONE ONE; Protocol Stop: 10/26/21 17:46 Last Infusion: 10/26/21 21:21 Dose: 0 mls/hr Documented By: Infusion: 10/26/21 20:22 Dose: 100 mls/hr Documented By: Infusion: 10/26/21 19:15 Dose: 0 mls/hr Documented By: Admin: 10/26/21 18:59 Dose: 100 mls/hr Documented By: SRIDHAR Sodium Chloride (Nss 1000ml) 500 mls @ 999 mls/hr IV .Q31M ONE Stop: 10/26/21 17:17 Last Infusion: 10/26/21 19:48 Dose: 0 mls/hr Documented By: Admin: 10/26/21 18:04 Dose: 999 mls/hr Documented By: GAMAL Phytonadione 5 mg/ Dextrose 50.5 mls @ 101 mls/hr IV ONE ONE Stop: 10/26/21 17:33 Last Infusion: 10/26/21 19:15 Dose: 0 mls/hr Documented By: Admin: 10/26/21 18:35 Dose: 101 mls/hr Documented By: GAMAL Ioversol (Optiray 320 100ml) 95 ml IV ONCE ONE Stop: 10/26/21 18:28 Last Admin: 10/26/21 18:28 Dose: 95 ml Documented By: TONI Ondansetron HCl (Ondansetron Inj 2 Mg/Ml 2 Ml Vial) 4 mg IV NOW STA Stop: 10/26/21 15:58 Last Admin: 10/26/21 18:04 Dose: 4 mg Documented By: GAMAL Potassium Chloride (Potassium Chloride Crtab 20 Meq Tabcr) 40 meq PO NOW STA Stop: 10/26/21 20:30 Last Admin: 10/26/21 23:27 Dose: 40 meq Documented By: CB Imaging Data Radiologist's Impression: Abdomen/Pelvis CT 10/26/21 15:57 CT OF THE ABDOMEN AND PELVIS WITH CONTRAST CLINICAL HISTORY: Vomiting. Possible bowel obstruction. COMPARISON STUDY: CT of the abdomen and pelvis October 08, 2021. TECHNIQUE: Following IV administration of 95 mL of Optiray, axial images of the abdomen and pelvis were obtained from the lung bases to the proximal femurs. Images were reviewed in the axial, sagittal, and coronal planes. IV contrast was administered without complication. Automated exposure control was utilized for the study. A dose lowering technique was utilized adhering to the principles of ALARA. CT DOSE: 325.76 mGy.cm FINDINGS: Subpleural left lower lobe airspace opacity is unchanged from earlier exams. This favors scarring. Prosthetic aortic valve is noted. Cardiomegaly is present. No pericardial effusion. No pneumatosis, free air or portal venous gas. Liver, spleen, adrenal glands and pancreas are unremarkable. No biliary or pancreatic ductal dilatation. Calcifications within the renal sinuses are likely vascular. There is no hydronephrosis. Sigmoid diverticulosis is noted without evidence for acute diverticulitis. The appendix is normal. No evidence for a bowel obstruction. No lymphadenopathy or ascites. No fluid collection to suggest an abscess. There is extensive aortoiliac atherosclerotic plaque. Postoperative findings within the lumbosacral spine are noted. Several healing subacute lumbar spine fractures are unchanged since exam of October 08, 2021. No acute fracture within the lumbar spine or pelvis. IMPRESSION: 1. No acute process within the abdomen or pelvis. 2. No bowel obstruction. Normal appendix. 3. Sigmoid diverticulosis without evidence for acute diverticulitis. ACT 112: Negative or not required by law. Electronically signed by: Christian Lora M.D. 10/26/2021 6:46 PM Chest X-Ray 10/26/21 15:57 XR chest 1V portable CLINICAL HISTORY: weakness COMPARISON STUDY: Chest CT September 11, 2021. Chest radiograph October 09, 2021. FINDINGS: Prosthetic aortic valve is noted. Cardiomegaly is unchanged. Minimal left basilar opacity is unchanged. This favors scarring. Lung volumes are diminished. Slight interstitial prominence is unchanged. No evidence for overt pulmonary edema. IMPRESSION: No acute cardiopulmonary findings. No significant change in appearance of the chest. ACT 112: Negative or not required by law. Electronically signed by: Christian Lora M.D. 10/26/2021 4:[address] 10/26/21 15:57 CT OF THE HEAD WITHOUT CONTRAST CLINICAL HISTORY: Altered mental status. COMPARISON STUDY: MRI of the brain September 03, 2021. Head CT October 11, 2021. CT DOSE: 537.48 mGy.cm TECHNIQUE: Helical axial images of the head were obtained without IV contrast. Automated exposure control was utilized for the study. A dose lowering technique was utilized adhering to the principles of ALARA. FINDINGS: No acute intracranial hemorrhage, midline shift or mass effect is present. The ventricular system is stable. White matter hypodensities are unchanged and favor small vessel disease. The basal cisterns are patent. No extra-axial collections are present. There are no findings to suggest acute dural sinus thrombosis or acute territorial infarct. No significant calvarial abnormalities are present. Visualized portions of the sinuses and mastoid air cells are clear. IMPRESSION: No acute intracranial findings. No change in appearance of the brain. ACT 112: Negative or not required by law. Electronically signed by: Christian Lora M.D. 10/26/2021 6:38 PM Discharge Plan Visit Data Chief Complaint: Altered Mental Status ED Provider: Vitaliy Tavera Discharge Problem: Weakness, Altered mental status, Vomiting, Coagulopathy, Elevated troponin, Hy pokalemia, Acute electrocardiogram changes Patient Disposition: Admitted As Inpatient Condition: Fair Discharge Instructions Interventions: ED Discharge Assessment Last Done: 10/26/21 21:37
[2021-10-26 16:15] LABS: Basophils # (auto) 0.07 K/uL (0-0.2); Basophils % (auto) 0.9 %; Eosinophils # (auto) 0.17 K/uL (0-0.50); Eosinophils % (auto) 2.2 %; Hematocrit (blood only) 34.3 % (34.1-44.9); Hemoglobin 11.5 g/dl (12.0-16.0); Immature Granulocytes # (auto) 0.04 K/uL (0.00-0.02); Immature Granulocytes % (auto) 0.5 %; Lymphocytes # (auto) 0.76 K/uL (1.2-3.4); Lymphocytes % (auto) 9.7 %; Mean Corpuscular Hemoglobin 33.6 pg (25.0-34.0); Mean Corpuscular Hgb Conc 33.5 g/dL (32.0-36.0); Mean Corpuscular Volume 100.3 fL (80.0-100.0); Mean Platelet Volume 10.4 fL (9.4-12.3); Monocytes # (auto) 0.99 K/uL (0.24-0.82); Monocytes % (auto) 12.6 %; Neutrophils # (auto) 5.81 K/uL (1.4-6.5); Neutrophils % (auto) 74.1 %; Platelet Count 149 K/uL (130-400); RDW Coefficient of Variation 16.2 % (11.5-14.5); RDW Standard Deviation 60.2 fL (36.4-46.3); Red Blood Count 3.42 M/uL (3.93-5.22); White Blood Count 7.84 K/ul (4.8-10.8)
--- NOTE | 2021-10-26 16:36 | XRay Report ---
XR chest 1V portable CLINICAL HISTORY: weakness COMPARISON STUDY: Chest CT September 11, 2021. Chest radiograph October 09, 2021. FINDINGS: Prosthetic aortic valve is noted. Cardiomegaly is unchanged. Minimal left basilar opacity i s unchanged. This favors scarring. Lung volumes are diminished. Slight interstitial prominence is unc hanged. No evidence for overt pulmonary edema. IMPRESSION: No acute cardiopulmonary findings. No significant change in appearance of the chest. ACT 112: Negative or not required by law. Electronically signed by: Christian Lora M.D. 10/26/2021 4:34 PM
[2021-10-26 16:38] LABS: Albumin Globulin Ratio 1.3 (0.9-2); Albumin Level 3.6 gm/dl (3.4-5.0); BUN Creatinine Ratio 17.3 (10-20); Bilirubin,Total 1.3 mg/dl (0.2-1.0); Calcium 8.7 mg/dl (8.5-10.1); Creatinine Clr Calc Pharmacy 35.6 ml/min; Est GFR (African American) 62.7 ml/min; Est GFR (Non-African American) 54.1 ml/min; Globulin 2.7 gm/dl (2.5-4.0); Magnesium 1.7 mg/dl (1.7-2.4); Potassium 3.2 mmol/L (3.5-5.1); Total Protein 6.3 gm/dl (6.0-8.3)
[2021-10-26] MEDS ORDERED: SODIUM CHLORIDE 0.9% 1000ML 500 ML IV ONE (16:47)
[2021-10-26] MEDS ORDERED: POTASSIUM CHLORIDE / WTR 10 MEQ/100 ML PLCT IV ONE (16:47)
[2021-10-26 16:53] LABS: Partial Thromboplastin Ratio 1.8; Prothrombin Time 85.8 Seconds (9.0-12.0)
[2021-10-26 16:54] LABS: INR 9.1 (0.9-1.1)
[2021-10-26 16:55] LABS: Partial Thromboplastin Time 48.7 Seconds (21.0-31.0)
[2021-10-26 16:59] LABS: Troponin I High Sensitivity 53.9 pg/ml (0-14)
[2021-10-26] MEDS ORDERED: PHYTONADIONE 5 MG in DEXTROSE 5% 50 ML IV ONE (17:04)
[2021-10-26] MEDS ORDERED: OPTIRAY 320 100ml IV ONE (18:27)
--- NOTE | 2021-10-26 18:41 | CT Scan Report ---
CT OF THE HEAD WITHOUT CONTRAST CLINICAL HISTORY: Altered mental status. COMPARISON STUDY: MRI of the brain September 03, 2021. Head CT October 11, 2021. CT DOSE: 537.48 mGy.cm TECHNIQUE: Helical axial images of the head were obtained without IV contrast. Automated exposure con trol was utilized for the study. A dose lowering technique was utilized adhering to the principles o f ALARA. FINDINGS: No acute intracranial hemorrhage, midline shift or mass effect is present. The ventricular system is stable. White matter hypodensities are unchanged and favor small vessel disease. The basal cisterns are patent. No extra-axial collections are present. There are no findings to suggest acute d ural sinus thrombosis or acute territorial infarct. No significant calvarial abnormalities are presen t. Visualized portions of the sinuses and mastoid air cells are clear. IMPRESSION: No acute intracranial findings. No change in appearance of the brain. ACT 112: Negative or not required by law. Electronically signed by: Christian Lora M.D. 10/26/2021 6:38 PM
--- NOTE | 2021-10-26 18:48 | CT Scan Report ---
CT OF THE ABDOMEN AND PELVIS WITH CONTRAST CLINICAL HISTORY: Vomiting. Possible bowel obstruction. COMPARISON STUDY: CT of the abdomen and pelvis October 08, 2021. TECHNIQUE: Following IV administration of 95 mL of Optiray, axial images of the abdomen and pelvis we re obtained from the lung bases to the proximal femurs. Images were reviewed in the axial, sagittal, and coronal planes. IV contrast was administered without complication. Automated exposure control wa s utilized for the study. A dose lowering technique was utilized adhering to the principles of ALARA . CT DOSE: 325.76 mGy.cm FINDINGS: Subpleural left lower lobe airspace opacity is unchanged from earlier exams. This favors sc arring. Prosthetic aortic valve is noted. Cardiomegaly is present. No pericardial effusion. No pneuma tosis, free air or portal venous gas. Liver, spleen, adrenal glands and pancreas are unremarkable. No biliary or pancreatic ductal dilatation. Calcifications within the renal sinuses are likely vascular . There is no hydronephrosis. Sigmoid diverticulosis is noted without evidence for acute diverticulit is. The appendix is normal. No evidence for a bowel obstruction. No lymphadenopathy or ascites. No fl uid collection to suggest an abscess. There is extensive aortoiliac atherosclerotic plaque. Postopera tive findings within the lumbosacral spine are noted. Several healing subacute lumbar spine fractures are unchanged since exam of October 08, 2021. No acute fracture within the lumbar spine or pelvis. IMPRESSION: 1. No acute process within the abdomen or pelvis. 2. No bowel obstruction. Normal appendix. 3. Sigmoid diverticulosis without evidence for acute diverticulitis. ACT 112: Negative or not required by law. Electronically signed by: Christian Lora M.D. 10/26/2021 6:46 PM
[2021-10-26 19:22] LABS: Appearance Urine Clear (Clear); Bilirubin Urine Negative (Negative); Blood Urine Negative (Negative); Color Urine Yellow; Glucose Urine UA Negative (Negative); Ketones Urine Negative (Negative); Leukocyte Esterase Urine Negative (Negative); Nitrite Urine Negative (Negative); Protein Urine Negative (Negative); Specific Gravity Urine 1.016 (1.000-1.030); Urobilinogen Urine Negative (Negative); pH Urine 5.5 (4.5-7.5)
[2021-10-26] MEDS ORDERED: POTASSIUM CHLORIDE CRTAB 20 MEQ TABCR PO STA (20:29)
--- NOTE | 2021-10-26 20:29 | History & Physical Report ---
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, INR supratherapeutic, no overt bleeding for now hx CAD status post TAVR hypertension, slightly elevated troponin elevation in the setting of increase baseline creatinine hyperlipidemia on statin Rx rheumatoid arthritis on methotrexate, leflunomide, [id number] tramadol and chronic steroid Rx chronic anemia, hemoglobin better than baseline likely secondary to hemoconcentration Steroid-induced hyperglycemia (hemoglobin A1c of 5.1 last August 2021) past tobacco abuse OBS Medical telemetry IVF, hold home diuretics for now until patient euvolemic Appropriate to hold gabapentin until patient mentation back to baseline. Recommend changing RTC tramadol dosing to as needed given propensity for confusion. Follow troponin, TTE if with progression DVT prophylaxis. Coumadin INR goal between 2 and 3 DNR as per patient's prior directives as per son, Mr. Martín Tse. He requests updates from providers through [phone]. Text document was generated using [employer] voice recognition software. It may contain grammatical or spelling errors. Kindly contact undersigned for clarification of any documentation item in question. History of Present Illness Chief Complaint: Confusion, weakness Primary Care Provider: [facility] History obtained from patient, family, and records. History somewhat limited from patient secondary to disorientation. 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 Monthly confinements since August 2021. Last confinement 2 weeks ago for confusion, Pseudomonas UTI. [facility] ciprofloxacin [facility]. Last week, patient noted to have vomiting symptoms without abdominal pain. Poor p.o. intake. Today patient noted to be confused, looking tired and pale. Patient denies chest pain, SOB, headache symptoms, abdominal pain, bleeding symptoms. Patient brought to the ER for evaluation. Vitamin K administered for supratherapeutic INR. 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 Allergies Allergy/AdvReac Type Severity Reaction Status Date / Time baclofen Allergy Mild DIZZY Verified 09/11/21 10:24 Penicillins Allergy Mild RASH Verified 09/11/21 10:24 Sulfa (Sulfonamide Allergy Mild HEADACHE Verified 09/11/21 10:24 Antibiotics) Home Medications Medication Instructions Recorded Confirmed Type atorvastatin 40 mg tablet 40 mg PO QAM 07/01/18 10/09/21 History metoprolol succinate 50 mg 50 mg PO BID 07/01/18 10/09/21 History tablet,extended release 24 hr folic acid 1 mg tablet 2 mg PO QAM 10/17/19 10/09/21 History methotrexate sodium 2.5 mg tablet 10 mg PO FR 11/14/19 10/09/21 History clopidogrel 75 mg tablet 75 mg PO QAM 05/09/20 10/09/21 History ezetimibe 10 mg tablet 10 mg PO QAM 04/21/21 10/09/21 History pantoprazole 40 mg tablet,delayed 40 mg PO QAM 04/21/21 10/09/21 History release warfarin 2.5 mg tablet See Rx Instructions .Route .COMPLEX 05/04/21 10/09/21 History ferrous sulfate 325 mg (65 mg 325 mg PO BID 08/21/21 10/09/21 History iron) tablet leflunomide 20 mg tablet 20 mg PO QAM 08/21/21 10/09/21 History tramadol 50 mg tablet 50 mg PO BID 08/21/21 10/09/21 History levothyroxine 50 mcg tablet 50 mcg PO QAM 09/03/21 10/09/21 History gabapentin 100 mg capsule 100 mg PO BID 10/09/21 10/09/21 History prednisone 5 mg PO DAILY 10/09/21 10/09/21 History ropinirole 3 mg tablet 3 mg PO HS PRN restless legs 10/09/21 10/10/21 History amlodipine 5 mg tablet (Norvasc) 5 mg PO HS #30 tabs 10/14/21 10/09/21 Rx ciprofloxacin HCl 250 mg tablet 250 mg PO Q12H #6 tabs 10/14/21 Rx hydrochlorothiazide 25 mg tablet 12.5 mg PO DAILY #30 tabs 10/14/21 Rx Past Med/Surg History Medical History Anemia C. difficile colitis Chronic anticoagulation CKD (chronic kidney disease) stage 3, GFR 30-59 ml/min Confusion Diverticular disease hx diverticulitis Fall GERD (gastroesophageal reflux disease) HLD (hyperlipidemia) HTN (hypertension) Lumbar disc herniation with radiculopathy Lumbar radiculopathy NSVT (nonsustained ventricular tachycardia) Obstructive sleep apnea WEARS O2 AT 2L AT HS On home oxygen therapy 2L AT HS Rheumatoid arthritis RLS (restless legs syndrome) Severe aortic stenosis prior to TAVR SVT (supraventricular tachycardia) Thrombocytopenia Thrombocytopenia Surgical History H/O colonoscopy H/O eye surgery LEFT History of carpal tunnel surgery RT/LEFT History of esophagogastroduodenoscopy (EGD) History of heart artery stent 03/18/2020-TYLER x 2 to LAD History of lumbar fusion History of tooth extraction History of total knee replacement RT/LEFT S/P CHANNING-BSO S/P TAVR (transcatheter aortic valve replacement) Family History Other Heart disease No family history of adverse response to anesthesia Rheumatoid arthritis Social History Smoking Status: Former smoker Tobacco Type: Cigarettes Second Hand Exposure: Yes (IN THE PAST); Hx Alcohol Use: No Hx Substance Use: No Preferred Language: Tajik Communication Ability: Effective Regulatory Affairs Intern Required: No Beliefs That Will Affect Care: None marital status: / Current Living Situation: Snf Current Living Situation Comment: Lives with How many Children do You have: 1 Feels Safe at Home: Yes Safety Concerns: Feels Safe At This Time Assistive Devices: Denture - Upper, Denture - Lower, Hearing Aid - Bilateral, Oxygen - at Night and Walker Review of Systems Review of Systems: Could not be reliably obtained secondary to disorientation Physical Exam Physical Exam: GENERAL: Disoriented, pleasant, no respiratory distress SKIN: Pallor, warm HEENT: Pale palpebral conjunctivae, no ptosis, dry buccal mucosa NECK : Supple, no tenderness CHEST : Decreased breath sounds, no tenderness HEART : RRR, systolic murmur ABDOMEN: Some distention, nontender EXTREMITIES : Minimal LE swelling, no LE tenderness, no other conspicuous deformities noted NEUROLOGIC : Disoriented, no facial asymmetry, gait and stance not assessed Results & Data Results & Data ([facility]) Vital Signs (Past 12 Hours) Vital Signs Temp Pulse Resp BP Pulse Ox O2 Del Method 10/26/21 19:01 83 19 139/73 94 10/26/21 16:01 147/80 H 10/26/21 15:51 68 14 144/80 H 96 10/26/21 15:57 70 20 99 Room Air 10/26/21 15:29 70 20 99 Room Air 10/26/21 15:29 99 Room Air 10/26/21 15:29 36.6 C 78 20 147/60 H 99 Room Air Laboratory Results Laboratory Results WBC 7.84 K/ul (4.8-10.8) 10/26/21 16:05 RBC 3.42 M/uL (3.93-5.22) L 10/26/21 16:05 Hgb 11.5 g/dl (12.0-16.0) L 10/26/21 16:05 Hct 34.3 % (34.1-44.9) 10/26/21 16:05 MCV 100.3 fL (80.0-100.0) H 10/26/21 16:05 MCH 33.6 pg (25.0-34.0) 10/26/21 16:05 MCHC 33.5 g/dL (32.0-36.0) 10/26/21 16:05 RDW Std Deviation 60.2 fL (36.4-46.3) H 10/26/21 16:05 RDW Coeff of Keila 16.2 % (11.5-14.5) H 10/26/21 16:05 Plt Count 149 K/uL (130-400) 10/26/21 16:05 MPV 10.4 fL (9.4-12.3) 10/26/21 16:05 Immature Gran % (Auto) 0.5 % 10/26/21 16:05 Neut % (Auto) 74.1 % 10/26/21 16:05 Lymph % (Auto) 9.7 % 10/26/21 16:05 [place] % (Auto) 12.6 % 10/26/21 16:05 Eos % (Auto) 2.2 % 10/26/21 16:05 Baso % (Auto) 0.9 % 10/26/21 16:05 Neut # (Auto) 5.81 K/uL (1.4-6.5) 10/26/21 16:05 Lymph # (Auto) 0.76 K/uL (1.2-3.4) L 10/26/21 16:05 [place] # (Auto) 0.99 K/uL (0.24-0.82) H 10/26/21 16:05 Eos # (Auto) 0.17 K/uL (0-0.50) 10/26/21 16:05 Baso # (Auto) 0.07 K/uL (0-0.2) 10/26/21 16:05 Immature Gran # (Auto) 0.04 K/uL (0.00-0.02) H 10/26/21 16:05 PT 85.8 Seconds (9.0-12.0) H 10/26/21 16:05 INR 9.1 (0.9-1.1) H* 10/26/21 16:05 APTT 48.7 Seconds (21.0-31.0) H* 10/26/21 16:05 PTT Ratio 1.8 10/26/21 16:05 Sodium 135 mmol/L (136-145) L 10/26/21 16:05 Potassium 3.2 mmol/L (3.5-5.1) L 10/26/21 16:05 Chloride 100 mmol/L (98-107) 10/26/21 16:05 Carbon Dioxide 24 mmol/L (21-32) 10/26/21 16:05 Anion Gap 11 (3-11) 10/26/21 16:05 BUN 17 mg/dl (6-23) 10/26/21 16:05 Creatinine 0.98 mg/dl (0.6-1.2) 10/26/21 16:05 Est Cr Clr Drug Dosing 35.6 ml/min 10/26/21 16:05 Est GFR ( Amer) 62.7 ml/min 10/26/21 16:05 Est GFR (Non-Af Amer) 54.1 ml/min 10/26/21 16:05 BUN/Creatinine Ratio 17.3 (10-20) 10/26/21 16:05 Glucose 115 mg/dl (70-99(Fasting)) H 10/26/21 16:05 POC Glucose 118 mg/dl (70-99) H 10/26/21 16:12 Calcium 8.7 mg/dl (8.5-10.1) 10/26/21 16:05 Magnesium 1.7 mg/dl (1.7-2.4) 10/26/21 16:05 Total Bilirubin 1.3 mg/dl (0.2-1.0) H 10/26/21 16:05 AST 40 U/L (13-39) H 10/26/21 16:05 ALT 15 U/L (7-52) 10/26/21 16:05 Alkaline Phosphatase 97 U/L (34-104) 10/26/21 16:05 Ammonia 50.0 umol/L (18-72) 10/26/21 17:34 Troponin I High Sens 53.9 pg/ml (0-14) H* 10/26/21 16:05 Total Protein 6.3 gm/dl (6.0-8.3) 10/26/21 16:05 Albumin 3.6 gm/dl (3.4-5.0) 10/26/21 16:05 Globulin 2.7 gm/dl (2.5-4.0) 10/26/21 16:05 Albumin/Globulin Ratio 1.3 (0.9-2) 10/26/21 16:05 TSH 4.076 uIu/ml (0.300-4.500) 10/26/21 16:05 Urine Color Yellow 10/26/21 19:05 Urine Appearance Clear (Clear) 10/26/21 19:05 Urine pH 5.5 (4.5-7.5) 10/26/21 19:05 Ur Specific [place] 1.016 (1.000-1.030) 10/26/21 19:05 Urine Protein Negative (Negative) 10/26/21 19:05 Urine Glucose (UA) Negative (Negative) 10/26/21 19:05 Urine Ketones Negative (Negative) 10/26/21 19:05 Urine Blood Negative (Negative) 10/26/21 19:05 Urine Nitrite Negative (Negative) 10/26/21 19:05 Urine Bilirubin Negative (Negative) 10/26/21 19:05 Urine Urobilinogen Negative (Negative) 10/26/21 19:05 Ur Leukocyte Esterase Negative (Negative) 10/26/21 19:05 SARS-CoV-2, RNA, NAAT NEGATIVE (NEGATIVE) 10/26/21 16:25 Impressions Abdomen/Pelvis CT 10/26/21 15:57 CT OF THE ABDOMEN AND PELVIS WITH CONTRAST CLINICAL HISTORY: Vomiting. Possible bowel obstruction. COMPARISON STUDY: CT of the abdomen and pelvis October 08, 2021. TECHNIQUE: Following IV administration of 95 mL of Optiray, axial images of the abdomen and pelvis were obtained from the lung bases to the proximal femurs. Images were reviewed in the axial, sagittal, and coronal planes. IV contrast was administered without complication. Automated exposure control was utilized for the study. A dose lowering technique was utilized adhering to the principles of ALARA. CT DOSE: 325.76 mGy.cm FINDINGS: Subpleural left lower lobe airspace opacity is unchanged from earlier exams. This favors scarring. Prosthetic aortic valve is noted. Cardiomegaly is present. No pericardial effusion. No pneumatosis, free air or portal venous gas. Liver, spleen, adrenal glands and pancreas are unremarkable. No biliary or pancreatic ductal dilatation. Calcifications within the renal sinuses are likely vascular. There is no hydronephrosis. Sigmoid diverticulosis is noted without evidence for acute diverticulitis. The appendix is normal. No evidence for a bowel obstruction. No lymphadenopathy or ascites. No fluid collection to suggest an abscess. There is extensive aortoiliac atherosclerotic plaque. Postoperative findings within the lumbosacral spine are noted. Several healing subacute lumbar spine fractures are unchanged since exam of October 08, 2021. No acute fracture within the lumbar spine or pelvis. IMPRESSION: 1. No acute process within the abdomen or pelvis. 2. No bowel obstruction. Normal appendix. 3. Sigmoid diverticulosis without evidence for acute diverticulitis. ACT 112: Negative or not required by law. Electronically signed by: Christian Lora M.D. 10/26/2021 6:46 PM Chest X-Ray 10/26/21 15:57 XR chest 1V portable CLINICAL HISTORY: weakness COMPARISON STUDY: Chest CT September 11, 2021. Chest radiograph October 09, 2021. FINDINGS: Prosthetic aortic valve is noted. Cardiomegaly is unchanged. Minimal left basilar opacity is unchanged. This favors scarring. Lung volumes are diminished. Slight interstitial prominence is unchanged. No evidence for overt pulmonary edema. IMPRESSION: No acute cardiopulmonary findings. No significant change in appearance of the chest. ACT 112: Negative or not required by law. Electronically signed by: Christian Lora M.D. 10/26/2021 4:[address] 10/26/21 15:57 CT OF THE HEAD WITHOUT CONTRAST CLINICAL HISTORY: Altered mental status. COMPARISON STUDY: MRI of the brain September 03, 2021. Head CT October 11, 2021. CT DOSE: 537.48 mGy.cm TECHNIQUE: Helical axial images of the head were obtained without IV contrast. Automated exposure control was utilized for the study. A dose lowering technique was utilized adhering to the principles of ALARA. FINDINGS: No acute intracranial hemorrhage, midline shift or mass effect is present. The ventricular system is stable. White matter hypodensities are unchanged and favor small vessel disease. The basal cisterns are patent. No extra-axial collections are present. There are no findings to suggest acute dural sinus thrombosis or acute territorial infarct. No significant calvarial abnormalities are present. Visualized portions of the sinuses and mastoid air cells are clear. IMPRESSION: No acute intracranial findings. No change in appearance of the brain. ACT 112: Negative or not required by law. Electronically signed by: Christian Lora M.D. 10/26/2021 6:38 PM Diagnostic Findings EKG as per my interpretation : Rate 80, LAD, LAFB, 1 AVB, LBBB, PVCs (1) Altered mental status Altered mental status type: disorientation Qualified Code(s): R41.0 - Disorientation, unspecified
[2021-10-26] MEDS ORDERED: LACTATED RINGER'S 1,000 ML IV ONE (20:41)
[2021-10-26] MEDS ORDERED: rOPINIRole HCL 1 MG TABLET PO PRN (22:36)
[2021-10-26] MEDS ORDERED: traMADol HCL 50 MG TABLET PO PRN (22:36)
[2021-10-26] MEDS ORDERED: PROMETHAZINE HCL 6.25 MG in SODIUM CHLORIDE 0.9% 50 ML IV PRN (22:36)
[2021-10-26] MEDS ORDERED: ACETAMINOPHEN 325 MG TAB PO PRN (22:36)
[2021-10-26] MEDS: METOPROLOL SUCC 50MG EXT REL TAB PO SCH (23:31)
[2021-10-26] MEDS: amLODIPine BESYLATE 5 MG TAB PO SCH (23:31)
[2021-10-27] MEDS: LEVOTHYROXINE SODIUM 50 MCG TABLET PO SCH (06:44)
[2021-10-27] MEDS: ATORVASTATIN 40 MG TAB PO SCH (07:29)
[2021-10-27] MEDS: FERROUS SULFATE 325 MG TAB PO SCH ×2 (07:29→17:16)
[2021-10-27] MEDS: PANTOprazole 40 MG TAB PO SCH (07:29)
[2021-10-27] MEDS: predniSONE 5 MG TAB PO SCH (07:30)
[2021-10-27] MEDS: CLOPIDOGREL BISULFATE 75 MG TAB PO SCH (07:30)
[2021-10-27] MEDS: EZETIMIBE 10 MG TABLET PO SCH (07:30)
[2021-10-27] MEDS: LEFLUNOMIDE 10 MG TAB PO SCH (07:30)
[2021-10-27] MEDS: FOLIC ACID 1 MG TAB PO SCH (07:30)
[2021-10-27] MEDS: METOPROLOL SUCC 50MG EXT REL TAB PO SCH ×2 (07:31→20:31)
[2021-10-27 08:17] LABS: Basophils # (auto) 0.06 K/uL (0-0.2); Eosinophils # (auto) 0.19 K/uL (0-0.50); Eosinophils % (auto) 3.2 %; Hematocrit (blood only) 31.5 % (34.1-44.9); Hemoglobin 10.7 g/dl (12.0-16.0); Immature Granulocytes # (auto) 0.03 K/uL (0.00-0.02); Immature Granulocytes % (auto) 0.5 %; Mean Corpuscular Hemoglobin 33.6 pg (25.0-34.0); Mean Corpuscular Volume 99.1 fL (80.0-100.0); Mean Platelet Volume 10.9 fL (9.4-12.3); Monocytes # (auto) 0.93 K/uL (0.24-0.82); Monocytes % (auto) 15.5 %; Neutrophils % (auto) 59.8 %; Platelet Count 124 K/uL (130-400); RDW Standard Deviation 58.3 fL (36.4-46.3); Red Blood Count 3.18 M/uL (3.93-5.22); White Blood Count 6.01 K/ul (4.8-10.8)
[2021-10-27 08:26] LABS: INR 1.4 (0.9-1.1); Prothrombin Time 14.7 Seconds (9.0-12.0)
[2021-10-27 09:05] LABS: BUN Creatinine Ratio 15.2 (10-20); Calcium 8.3 mg/dl (8.5-10.1); Creatinine Clr Calc Pharmacy 44.2 ml/min; Est GFR (African American) 81.4 ml/min; Est GFR (Non-African American) 70.2 ml/min; Potassium 2.9 mmol/L (3.5-5.1)
--- NOTE | 2021-10-27 12:17 | Electrocardiogram Report ---
Test Reason : Blood Pressure : / mmHG Vent. Rate : 078 BPM Atrial Rate : 078 BPM P-R Int : 210 ms QRS Dur : 140 ms QT Int : 442 ms P-R-T Axes : 027 -40 152 degrees QTc Int : 503 ms Poor data quality, interpretation may be adversely affected Sinus rhythm with 1st degree A-V block with frequent Premature ventricular complexes Left axis deviation Left bundle branch block Abnormal ECG When compared with ECG of 09-OCT-2021 07:04, Premature ventricular complexes are now Present Left bundle branch block is now Present Confirmed by Zackary Mandel ([id number]) on 10/27/2021 12:16:34 PM Referred By: REFERRED SELF Confirmed By:Jd Mandel
[2021-10-27] MEDS: POTASSIUM CHLORIDE CRTAB 20 MEQ TABCR PO SCH ×2 (13:59→15:44)
--- NOTE | 2021-10-27 15:21 | Hospitalist Progress Note ---
Date of Service October 27, 2021 Assessment & Plan (1) Altered mental status: Plan 80-year-old lady with PMH of recurrent PE/DVT on Coumadin, CAD, s/p TAVR, HTN, HLD, PSVT, RA on methotrexate/leflunomide, round the clock tramadol and chronic steroid Rx, GERD, chronic anemia (baseline Hb 9-10), lymphedema, past tobacco abuse presented 10/26 2/2 AMS and was also found to have supratherapeutic INR. She is being managed for the following: Acute metabolic encephalopathy: likely secondary to dehydration Clinical dehydration: Dry mucosa at presentation and hemoconcentration on admitting CBC Patient presenting with altered mental status likely multifactorial especially dehydration on the background of [id number] narcotics/neuropsychotropic meds. Admitting UA negative for infection. Admitting CTAP/CXR/CT head: With no acute findings. Patient on IV fluid, home diuretics on hold until patient euvolemic/improved appetite. Neuropsychiatric meds on hold until patient mentation back to baseline. Tramadol RTC to as needed. Follow labs in AM. Monitor and replete electrolytes. Supratherapeutic INR: INR at presentation 9.1, status post 5 mg vitamin K IV. INR today 1.4. Resume home dose of Coumadin, closely monitor Coumadin dose. Elevated troponin: Likely chronic elevation, flat trend, patient with no chest pain. Other chronic medical conditions: CAD, s/p TAVR, HTN, HLD, RA on methotrexate/leflunomide/RTC tramadol/chronic steroid, chronic anemia, steroid- induced hyperglycemia, past tobacco abuse --> resume home meds as and when able. DVT prophylaxis: INR decreased today, resuming home Coumadin, closely monitor Coumadin dose. DNR/DNI PT/OT, CM to assist with DC planning. Mr. Martín Tse.[phone]. Patient's son. Admission and Anticipated Discharge Date Admission Date: October 26, 2021 Subjective Patient seen and examined at bedside as a follow-up of altered mental status and supratherapeutic INR. Patient was lying in bed, on 2 L nasal cannula oxygen, NAD, alert but oriented x0, pleasantly confused, per RN no new acute events overnight, patient is confused, ate okay, no bowel movements. Patient denies pain or discomfort, other ROS n/a due to cognition status. Physical Exam Physical Exam: GENERAL: Alert and oriented x0. NAD, on 2L NC O2. HEENT: No pallor, no icterus. Pupils equal, round and reactive to light. Oral mucosa moist. NECK: No JVD, no neck masses. HEART: S1 and S2 heard. Regular rate and rhythm. No murmur, no gallop. RESPIRATORY SYSTEM: Normal AP diameter. No accessory muscle use. No wheezing, no crackles. ABDOMEN: Soft, bowel sounds present, nontender, no distention. CENTRAL NERVOUS SYSTEM: No facial droop. Speech is clear. Obeys simple commands. Moves extremities. EXTREMITIES: No edema, no erythema seen. Results & Data Results & Data ([facility]) Vital Signs (Past 12 Hours) Vital Signs Temp Pulse Pulse Resp BP BP Pulse Ox 10/27/21 11:00 36.6 C 57 L 18 117/76 98 10/27/21 08:51 10/27/21 07:18 36.5 C 75 20 163/52 H 100 10/27/21 07:03 64 O2 Del Method O2 Flow Rate 10/27/21 11:00 Nasal Cannula 2 10/27/21 08:51 Room Air, Nasal Cannula 2 10/27/21 07:18 Nasal Cannula 2 10/27/21 07:03 (1) Altered mental status Altered mental status type: disorientation Qualified Code(s): R41.0 - Disorientation, unspecified
[2021-10-27] MEDS: WARFARIN SOD 2.5 MG TAB PO SCH (17:15)
[2021-10-27] MEDS: amLODIPine BESYLATE 5 MG TAB PO SCH (20:31)
[2021-10-28] MEDS: LEVOTHYROXINE SODIUM 50 MCG TABLET PO SCH (05:58)
[2021-10-28] MEDS: METOPROLOL SUCC 50MG EXT REL TAB PO SCH ×2 (07:30→21:17)
[2021-10-28] MEDS: LEFLUNOMIDE 10 MG TAB PO SCH (07:30)
[2021-10-28] MEDS: PANTOprazole 40 MG TAB PO SCH (07:30)
[2021-10-28] MEDS: FERROUS SULFATE 325 MG TAB PO SCH ×2 (07:30→16:14)
[2021-10-28] MEDS: EZETIMIBE 10 MG TABLET PO SCH (07:30)
[2021-10-28] MEDS: FOLIC ACID 1 MG TAB PO SCH (07:31)
[2021-10-28] MEDS: predniSONE 5 MG TAB PO SCH (07:31)
[2021-10-28] MEDS: ATORVASTATIN 40 MG TAB PO SCH (07:31)
[2021-10-28] MEDS: CLOPIDOGREL BISULFATE 75 MG TAB PO SCH (07:31)
[2021-10-28 08:10] LABS: Hematocrit (blood only) 31.7 % (34.1-44.9); Hemoglobin 10.6 g/dl (12.0-16.0); Mean Corpuscular Hemoglobin 33.4 pg (25.0-34.0); Mean Corpuscular Hgb Conc 33.4 g/dL (32.0-36.0); Mean Platelet Volume 10.9 fL (9.4-12.3); Platelet Count 118 K/uL (130-400); RDW Coefficient of Variation 15.8 % (11.5-14.5); Red Blood Count 3.17 M/uL (3.93-5.22); White Blood Count 6.93 K/ul (4.8-10.8)
[2021-10-28 08:19] LABS: INR 1.1 (0.9-1.1); Prothrombin Time 11.9 Seconds (9.0-12.0)
[2021-10-28 08:56] LABS: BUN Creatinine Ratio 13.9 (10-20); Calcium 8.2 mg/dl (8.5-10.1); Creatinine Clr Calc Pharmacy 48.5 ml/min; Est GFR (Non-African American) 78.5 ml/min; Magnesium 1.5 mg/dl (1.7-2.4); Phosphorus 1.9 mg/dl (2.5-4.9); Potassium 3.5 mmol/L (3.5-5.1)
[2021-10-28] MEDS ORDERED: WARFARIN SOD 1.25 MG TAB PO SCH (16:00)
[2021-10-28] MEDS ORDERED: traMADol HCL 50 MG TABLET PO PRN (17:14)
[2021-10-28] MEDS ORDERED: WARFARIN SOD 1.25 MG TAB PO ONE (17:16)
--- NOTE | 2021-10-28 17:20 | Hospitalist Progress Note ---
Date of Service October 28, 2021 Assessment & Plan (1) Altered mental status: Plan 80-year-old lady with PMH of recurrent PE/DVT on Coumadin, CAD, s/p TAVR, HTN, HLD, PSVT, RA on methotrexate/leflunomide, round the clock tramadol and chronic steroid Rx, GERD, chronic anemia (baseline Hb 9-10), lymphedema, past tobacco abuse presented 10/26 2/2 AMS and was also found to have supratherapeutic INR. She is being managed for the following: Acute metabolic encephalopathy: likely secondary to dehydration Clinical dehydration: Dry mucosa at presentation and hemoconcentration on admitting CBC Patient presenting with altered mental status likely multifactorial especially dehydration on the background of [id number] narcotics/neuropsychotropic meds. Admitting UA negative for infection. Admitting CTAP/CXR/CT head: With no acute findings. Patient on IV fluid, home diuretics on hold until patient euvolemic and w/ improved appetite. Per RN, appetite is very poor. Neuropsychiatric meds on hold until patient mentation back to baseline. consider discontinuing gabapentin if tolerated. Tramadol RTC to as needed. Follow labs in AM. Monitor and replete electrolytes. Pt w/ poor appetite, her had in May, trial of mirtazapine for appetite and ??concern of underlying depression Supratherapeutic INR: INR at presentation 9.1, status post 5 mg vitamin K IV. INR today 1.1. C/w home dose of Coumadin, closely monitor Coumadin dose. An extra dose of 1.25 mg today. Elevated troponin: Likely chronic elevation, flat trend, patient with no chest pain. Other chronic medical conditions: CAD, s/p TAVR, HTN, HLD, RA on methotrexate/leflunomide/RTC tramadol/chronic steroid, chronic anemia, steroid-induced hyperglycemia, past tobacco abuse --> resume home meds as and when able. DVT prophylaxis: INR decreased today, resuming home Coumadin, closely monitor Coumadin dose. DNR/DNI PT/OT, CM to assist with DC planning. Mr. Resendiz Crust.[phone]. Patient's son. Pt's son Martín given a phone call, left voicemail to call us back and ask for dr kerr. Admission and Anticipated Discharge Date Admission Date: October 27, 2021 Subjective Patient seen and examined at bedside as a follow-up of altered mental status and supratherapeutic INR. Patient was lying in bed, on RA, NAD, alert but oriented x1, pleasantly confused, per RN confused overnight, patient is confused, ate little, no bowel movements. Patient denies pain or discomfort,headache, dizziness, chest pain or palpitation or other ROS. Reports eating less, reports moving bowel. Physical Exam Physical Exam: GENERAL: Alert and oriented x1. NAD, on RA HEENT: No pallor, no icterus. Pupils equal, round and reactive to light. Oral mucosa moist. NECK: No JVD, no neck masses. HEART: S1 and S2 heard. Regular rate and rhythm. No murmur, no gallop. RESPIRATORY SYSTEM: Normal AP diameter. No accessory muscle use. No wheezing, no crackles. ABDOMEN: Soft, bowel sounds present, nontender, no distention. CENTRAL NERVOUS SYSTEM: No facial droop. Speech is clear. Obeys simple commands. Moves extremities. EXTREMITIES: No edema, no erythema seen. Results & Data Results & Data ([facility]) Vital Signs (Past 12 Hours) Vital Signs Temp Pulse Pulse Resp BP Pulse Ox O2 Del Method 10/28/21 17:04 36.7 C 59 L 18 153/69 H 96 Room Air 10/28/21 08:00 36.6 C 76 18 138/97 10/28/21 07:22 71 (1) Altered mental status Altered mental status type: disorientation Qualified Code(s): R41.0 - Disorientation, unspecified
[2021-10-28] MEDS: LACTATED RINGER'S 1,000 ML IV SCH (20:59)
[2021-10-28] MEDS: MAGNESIUM SULFATE / D5W 1 GM/100 ML BAG IV SCH ×2 (21:03→23:08)
[2021-10-28] MEDS: POT PHOSPHATE MONOBASIC W/ SOD TAB PO SCH (21:08)
[2021-10-28] MEDS: amLODIPine BESYLATE 5 MG TAB PO SCH (21:10)
[2021-10-28] MEDS: MIRTAZAPINE TAB 15 MG TAB PO SCH (21:17)
[2021-10-29] MEDS: LEVOTHYROXINE SODIUM 50 MCG TABLET PO SCH (06:04)
[2021-10-29] MEDS: predniSONE 5 MG TAB PO SCH (07:16)
[2021-10-29] MEDS: FERROUS SULFATE 325 MG TAB PO SCH ×2 (07:16→15:46)
[2021-10-29] MEDS: LEFLUNOMIDE 10 MG TAB PO SCH (07:16)
[2021-10-29] MEDS: FOLIC ACID 1 MG TAB PO SCH (07:16)
[2021-10-29] MEDS: METOPROLOL SUCC 50MG EXT REL TAB PO SCH ×2 (07:16→20:57)
[2021-10-29] MEDS: ATORVASTATIN 40 MG TAB PO SCH (07:17)
[2021-10-29] MEDS: CLOPIDOGREL BISULFATE 75 MG TAB PO SCH (07:17)
[2021-10-29] MEDS: POT PHOSPHATE MONOBASIC W/ SOD TAB PO SCH ×4 (07:17→20:57)
[2021-10-29] MEDS: PANTOprazole 40 MG TAB PO SCH (07:17)
[2021-10-29] MEDS: EZETIMIBE 10 MG TABLET PO SCH (07:17)
[2021-10-29 07:52] LABS: Hematocrit (blood only) 31.9 % (34.1-44.9); Hemoglobin 10.7 g/dl (12.0-16.0); Mean Corpuscular Hgb Conc 33.5 g/dL (32.0-36.0); Mean Corpuscular Volume 101.3 fL (80.0-100.0); Mean Platelet Volume 10.9 fL (9.4-12.3); Platelet Count 124 K/uL (130-400); RDW Coefficient of Variation 16.1 % (11.5-14.5); RDW Standard Deviation 59.7 fL (36.4-46.3); Red Blood Count 3.15 M/uL (3.93-5.22); White Blood Count 5.96 K/ul (4.8-10.8)
[2021-10-29 08:05] LABS: INR 1.2 (0.9-1.1); Prothrombin Time 12.4 Seconds (9.0-12.0)
[2021-10-29 08:38] LABS: BUN Creatinine Ratio 9.5 (10-20); Calcium 7.8 mg/dl (8.5-10.1); Creatinine Clr Calc Pharmacy 55.4 ml/min; Est GFR (African American) 97.5 ml/min; Est GFR (Non-African American) 84.1 ml/min; Magnesium 2.2 mg/dl (1.7-2.4); Phosphorus 3.4 mg/dl (2.5-4.9); Potassium 3.7 mmol/L (3.5-5.1)
[2021-10-29] MEDS: LACTATED RINGER'S 1,000 ML IV SCH (14:54)
[2021-10-29] MEDS: WARFARIN SOD 2.5 MG TAB PO SCH (15:46)
--- NOTE | 2021-10-29 18:08 | Hospitalist Progress Note ---
Date of Service October 29, 2021 Assessment & Plan (1) Altered mental status: Plan - likely in the setting of polypharmacy and decreased po intake - dehydrated clinically - improved with IVF and discontinuation of gabapentin - will continue other medications but will likely discontinue gabapentin indefinitely as it has very sedating side effects especially in the stenting of concurrent opioid use with tramadol - Admitting UA negative for infection. - started on mirtazapine for depression and for appetite stimulant effect Supratherapeutic INR - INR at presentation 9.1, status post 5 mg vitamin K IV. - INR 1.2 today - continue home coumadin dose - INR daily while inpatient Elevated troponin: Likely chronic elevation, flat trend, patient with no chest pain. Other chronic medical conditions: CAD, s/p TAVR, HTN, HLD, RA on methotrexate/leflunomide/RTC tramadol/chronic steroid, chronic anemia, steroid- induced hyperglycemia, past tobacco abuse --> resume home meds as and when able. DVT prophylaxis: coumadin DNR/DNI// PT/OT, CM to assist with DC planning - back to [facility] care likely Mr. Martín Tse.[phone]. Patient's son. Rivera Ramirez MD Hospital Medicine Admission and Anticipated Discharge Date Admission Date: October 27, 2021 Subjective The patient is an 80 year old woman with pmh PE/DVT on Coumadin, CAD, s/p TAVR, HTN, HLD, PSVT, RA on methotrexate/leflunomide on tramadol and chronic st eroids, GERD, anemia who presented with AM and found to have suprtherapeutic INR. She was given IVF, and IV vitamin K for her INR. neuropsychotropic medication were held and she was started on mirtazapine for likely underlying depression given recent passing of her . She improved with her mentation and was able to get out of bed on her own. PT recommending back to facility. She denies any complaints of chest pain, shortness of breath, n/v/d, abdominal pain, cough, fever or chills, dysuria. Review of Systems Review of Systems: All systems reviewed & are unremarkable except as noted in Subjective Could not be reliably obtained secondary to disorientation Physical Exam Constitutional: WD/WN, vitals as above Eyes: PERRL, conjunctivae normal, anicteric sclerae ENMT: external ear and nose normal, oropharynx normal Neck: trachea midline, no thyromegaly Respiratory: normal respiratory effort, lungs clear to auscultation Cardiovascular: RRR, no murmur, no edema Gastrointestinal (Abdomen): normal bowel sounds, soft, nontender, no hepatosplenomegaly Musculoskeletal: no cyanosis or clubbing, extremities motor strength 5/5 Skin: no rashes, warm and dry Neurologic: patellar DTR's 2+ bilat, sensation intact and PERRL, EOMI, accommodation nl, no face palsy, no dysarthria Psychiatric: A+Ox3, euthymic affect Results & Data Results & Data ([facility]) Vital Signs (Past 12 Hours) Vital Signs Temp Pulse Resp BP Pulse Ox O2 Del Method O2 Flow Rate 10/29/21 14:55 36.7 C 73 20 120/70 97 Room Air 10/29/21 09:00 Room Air 10/29/21 08:02 36.8 C 74 18 151/78 H 100 Nasal Cannula 2 Laboratory Results Short CBC 10/29/21 Range/Units 07:16 WBC 5.96 (4.8-10.8) K/ul Hgb 10.7 L (12.0-16.0) g/dl Hct 31.9 L (34.1-44.9) % Plt Count 124 L (130-400) K/uL BMP 10/29/21 07:16 Sodium 138 Potassium 3.7 Chloride 105 Carbon Dioxide 27 BUN 6 Creatinine 0.63 Glucose 92 Calcium 7.8 L Medications Administered Current Inpatient Medications Acetaminophen (Acetaminophen 325 Mg Tab) 650 mg PO Q4H PRN PRN Reason: Pain or Fever Stop: 11/25/21 22:35 Amlodipine Besylate (Amlodipine Besylate 5 Mg Tab) 5 mg PO [facility] Stop: 11/25/21 22:35 Last Admin: 10/28/21 21:10 Dose: 5 mg Atorvastatin Calcium ([facility]vastatin 40 Mg Tab) [facility] [place]: 11/26/21 08:59 Last Admin: 10/29/21 07:17 Dose: 40 mg Clopidogrel Bisulfate (Clopidogrel Bisulfate 75 Mg Tab) [facility] [place]: 11/26/21 08:59 Last Admin: 10/29/21 07:17 Dose: 75 mg Ezetimibe (Ezetimibe 10 Mg Tablet) 10 mg PO QAM [facility] Stop: 11/26/21 08:59 Last Admin: 10/29/21 07:17 Dose: 10 mg Ferrous Sulfate (Ferrous Sulfate 325 Mg Tab) 325 mg PO BID17 STEPHANIE Stop: 11/26/21 08:59 Last Admin: 10/29/21 15:46 Dose: 325 mg Folic Acid (Folic Acid 1 Mg Tab) 2 mg PO QAM [facility] Stop: 11/26/21 08:59 Last Admin: 10/29/21 07:16 Dose: 2 mg Promethazine HCl 6.25 mg/ (Sodium Chloride) 50.25 mls @ 201 mls/hr IV Q6H PRN PRN Reason: Nausea And Vomiting Stop: 11/25/21 22:35 Lactated Ringer's (Lr) 1,000 mls @ 50 mls/hr IV .Q20H [facility] Stop: 10/30/21 09:14 Last Admin: 10/29/21 14:54 Dose: 50 mls/hr Leflunomide (Leflunomide 10 Mg Tab) 20 mg PO QAM [facility] Stop: 11/26/21 08:59 Last Admin: 10/29/21 07:16 Dose: 20 mg Levothyroxine Sodium (Levothyroxine Sodium 50 Mcg Tablet) 50 mcg PO DAILYBB [facility] Stop: 11/26/21 06:29 Last Admin: 10/29/21 06:04 Dose: 50 mcg Methotrexate (Methotrexate Sodium 2.5 Mg Tab) 10 mg PO FR [facility] Stop: 11/30/21 08:59 Metoprolol Succinate (Metoprolol Succ 50mg Ext Rel Tab) 50 mg PO BID STEPHANIE Stop: 11/25/21 22:35 Last Admin: 10/29/21 07:16 Dose: 50 mg Mirtazapine (Mirtazapine Tab 15 Mg Tab) 15 mg PO HS [facility] Stop: 11/27/21 20:59 Last Admin: 10/28/21 21:17 Dose: 15 mg Pantoprazole Sodium (Pantoprazole 40 Mg Tab) 40 mg PO QAM [facility] Stop: 11/26/21 08:59 Last Admin: 10/29/21 07:17 Dose: 40 mg Potassium Phosphate (Pot Phosphate Monobasic W/ Sod Tab) 2 tab PO QID [facility] Stop: 10/30/21 17:01 Last Admin: 10/29/21 15:46 Dose: 2 tab Prednisone (Prednisone 5 Mg Tab) 5 mg PO DAILY [facility] Stop: 11/26/21 08:59 Last Admin: 10/29/21 07:16 Dose: 5 mg Ropinirole HCl (Ropinirole Hcl 1 Mg Tablet) 3 mg PO HS PRN PRN Reason: restless legs Stop: 11/25/21 22:35 Last Admin: 10/28/21 21:11 Dose: 3 mg Tramadol HCl (Tramadol Hcl 50 Mg Tablet) 25 mg PO Q6H PRN PRN Reason: Pain Stop: 11/25/21 22:35 Warfarin Sodium (Warfarin Sod 2.5 Mg Tab) 2.5 mg PO SuMoWeFrSa@1600 [facility] Stop: 11/26/21 16:14 Last Admin: 10/29/21 15:46 Dose: 2.5 mg Warfarin Sodium (Warfarin Sod 1.25 Mg Tab) 1.25 mg PO TuTh@1600 [facility] Stop: 11/27/21 15:59 Last Admin: 10/28/21 16:14 Dose: 1.25 mg (1) Altered mental status Altered mental status type: disorientation Qualified Code(s): R41.0 - Disorientation, unspecified
[2021-10-29] MEDS: amLODIPine BESYLATE 5 MG TAB PO SCH (20:57)
[2021-10-29] MEDS: MIRTAZAPINE TAB 15 MG TAB PO SCH (20:57)
[2021-10-30] MEDS: LEVOTHYROXINE SODIUM 50 MCG TABLET PO SCH (05:13)
[2021-10-30] MEDS: LEFLUNOMIDE 10 MG TAB PO SCH (07:37)
[2021-10-30] MEDS: predniSONE 5 MG TAB PO SCH (07:37)
[2021-10-30] MEDS: EZETIMIBE 10 MG TABLET PO SCH (07:37)
[2021-10-30] MEDS: METOPROLOL SUCC 50MG EXT REL TAB PO SCH (07:37)
[2021-10-30] MEDS: FERROUS SULFATE 325 MG TAB PO SCH (07:37)
[2021-10-30] MEDS: FOLIC ACID 1 MG TAB PO SCH (07:37)
[2021-10-30] MEDS: CLOPIDOGREL BISULFATE 75 MG TAB PO SCH (07:37)
[2021-10-30] MEDS: PANTOprazole 40 MG TAB PO SCH (07:37)
[2021-10-30] MEDS: ATORVASTATIN 40 MG TAB PO SCH (07:38)
[2021-10-30] MEDS: POT PHOSPHATE MONOBASIC W/ SOD TAB PO SCH ×2 (07:38→11:03)
[2021-10-30 08:15] LABS: INR 1.4 (0.9-1.1); Prothrombin Time 14.6 Seconds (9.0-12.0)
--- NOTE | 2021-10-30 15:41 | Discharge Summary ---
Date of Service October 30, 2021 Admission HPI Per Admitting Provider History obtained from patient, family, and records. History somewhat limited from patient secondary to disorientation. 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 Monthly confinements since August 2021. Last confinement 2 weeks ago for confusion, Pseudomonas UTI. Patient discharged back to care home on ciprofloxacin course. Last week, patient noted to have vomiting symptoms without abdominal pain. Poor p.o. intake. Today patient noted to be confused, looking tired and pale. Patient denies chest pain, SOB, headache symptoms, abdominal pain, bleeding symptoms. Patient brought to the ER for evaluation. Vitamin K administered for supratherapeutic INR. 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 Admission Exam Per Admitting Provider GENERAL: Disoriented, pleasant, no respiratory distress SKIN: Pallor, warm HEENT: Pale palpebral conjunctivae, no ptosis, dry buccal mucosa NECK : Supple, no tenderness CHEST : Decreased breath sounds, no tenderness HEART : RRR, systolic murmur ABDOMEN: Some distention, nontender EXTREMITIES : Minimal LE swelling, no LE tenderness, no other conspicuous deformities noted NEUROLOGIC : Disoriented, no facial asymmetry, gait and stance not assessed Principal Diagnosis delirium - medication and dehydration Discharge Exam Constitutional WD/WN, vitals as above Eyes PERRL, conjunctivae normal, anicteric sclerae ENMT external ear and nose normal, oropharynx normal Neck trachea midline, no thyromegaly Respiratory normal respiratory effort, lungs clear to auscultation Cardiovascular RRR, no murmur, no edema Gastrointestinal (Abdomen) normal bowel sounds, soft, nontender, no hepatosplenomegaly Musculoskeletal no cyanosis or clubbing, extremities motor strength 5/5 Skin no rashes, warm and dry Neurologic patellar DTR's 2+ bilat, sensation intact and PERRL, EOMI, accommodation nl, no face palsy, no dysarthria Psychiatric A+Ox3, euthymic affect Discharge Data Allergies Allergy/AdvReac Type Severity Reaction Status Date / Time baclofen Allergy Mild DIZZY Verified 09/11/21 10:24 Penicillins Allergy Mild RASH Verified 09/11/21 10:24 Sulfa (Sulfonamide Allergy Mild HEADACHE Verified 09/11/21 10:24 Antibiotics) Consultations 10/26/21 19:52 ED Decision to Admit Stat Ordered Studies 10/26/21 15:57 CT Abd and Pelvis [CT abd pelvis IV con only] Stat CT head/brain wo con Stat Hospital Course (1) Altered mental status: Plan - likely in the setting of polypharmacy and decreased po intake - dehydrated clinically - improved with IVF and discontinuation of gabapentin - will continue other medications but will likely discontinue gabapentin indefinitely as it has very sedating side effects especially in the stenting of concurrent opioid use with tramadol - Admitting UA negative for infection. - started on mirtazapine for depression and for appetite stimulant effect - encephalopathy resolved - at baseline -ok for discharge home Supratherapeutic INR - INR at presentation 9.1, status post 5 mg vitamin K IV. - INR 1.2 today - continue home coumadin dose - INR daily while inpatient Elevated troponin: Likely chronic elevation, flat trend, patient with no chest pain. Other chronic medical conditions: CAD, s/p TAVR, HTN, HLD, RA on methotrexate/leflunomide/RTC tramadol/chronic steroid, chronic anemia, steroid- induced hyperglycemia, past tobacco abuse --> resume home meds as and when able. DVT prophylaxis: coumadin DNR/DNI// PT/OT, CM to assist with DC planning - back to [facility] care likely Mr. Martín Tse.[phone]. Patient's son. Rivera Ramirez MD Hospital Medicine Total Time Total Time Spent Total Time Spent (In Minutes): 21 Total Time Includes: Examination of the Patient, Discharge Planning and Medication Reconciliation Discharge Plan Discharge Items Patient Disposition: [facility] Reason For Visit: AMS, TROP ELEV Discharge Diagnosis: medication induced delirium Condition on Discharge: Fair Activity: Resume your previous activity Non-emergency contact: Primary Care Provider Call non-emergency contact if: your symptoms worsen Follow-up/Referrals: [facility] [Primary Care Provider] - Diet: Heart Healthy Addtl Attending Provider Instructions: You were admitted for altered mental status and lethargy. Found to be dehydrated likely from not eating regularly and to have too many medications in your system. You were given IV hydration and gabapentin was discontinued. You improved and were saw by PT who recommended going back to [facility] with home health services. You should stop the Gapapentin and only use tramadol as needed for pain. Can disuss with Primary about restarting gabapentin slowly if needed. We also started you on mirtazapine (Remron) for depression and appetite stimulatant. Pending Studies at Discharge: No Stand-Alone Forms: My [facility] [employer], Smoking Cessation Skilled Items Patient informed of condition?: Yes DNR: Yes Discharge Level of Care: Other Communicable Disease: No Discharge Prognosis: Improving Lines: None Urinary Catheter: No Medications and DC Order Prescriptions: New acetaminophen 325 mg Tablet 650 mg PO Q4H PRN (Reason: pain) Qty: 30 0RF mirtazapine 15 mg Tablet 15 mg PO HS Qty: 30 0RF tramadol 50 mg Tablet 25 mg PO Q6H PRN (Reason: pain (scale score 7-10)) Qty: 20 0RF warfarin 2.5 mg Tablet 1.25 mg PO TuTh@1600 Qty: 30 0RF warfarin [Jantoven] 2.5 mg Tablet 2.5 mg PO SuMoWeFrSa@1600 Qty: 30 0RF Continued atorvastatin 40 mg tablet 40 mg PO QAM metoprolol succinate 50 mg tablet extended release 24 hr 50 mg PO BID folic acid 1 mg Tablet 2 mg PO QAM methotrexate sodium 2.5 mg tablet 10 mg PO FR clopidogrel 75 mg tablet 75 mg PO QAM pantoprazole 40 mg tablet,delayed release (DR/EC) 40 mg PO QAM ezetimibe 10 mg tablet 10 mg PO QAM leflunomide 20 mg tablet 20 mg PO QAM ferrous sulfate 325 mg (65 mg iron) tablet 325 mg PO BID levothyroxine 50 mcg tablet 50 mcg PO QAM ropinirole 3 mg tablet 3 mg PO HS PRN (Reason: restless legs) prednisone 5 mg 5 mg PO DAILY amlodipine [Norvasc] 5 mg Tablet 5 mg PO HS Qty: 30 1RF Discontinued tramadol 50 mg tablet 50 mg PO BID warfarin 2.5 mg Tablet See Rx Instructions .ROUTE .COMPLEX Rx Instructions: Take 1/2 tablet on Wednesday and at 5pm. Take 1 tablet on the other 5 days. gabapentin 100 mg capsule 100 mg PO BID hydrochlorothiazide 25 mg tablet 12.5 mg PO DAILY Qty: 30 0RF Discharge Orders: Discharge Order (Routine); Ordered 10/30/21 Ordered By: Rivera Ramirez Admission Data Admit Date/Time: 10/27/21 15:13 Attending Provider: Rivera Ramirez Admit Provider: Sonu Chapman Primary Care Provider: [facility] Other Providers: Sonu Chapman Other Interventions: Discharge Summary Assessment (RN) Last Done: 10/30/21 13:09
[2021-10-31] MEDS ORDERED: metHOTREXate sodium 2.5 MG TAB PO SCH (09:00)
== END 2021-10-30 14:14 | disposition home or self-care (01) | DRG 640 ==
LOC: 2W 15:34 → ED 15:34 → 2W 21:37 → SUATTDRO 10-27 15:13
DX: I12.9 Hypertensive chronic kidney disease with stage 1 through stage 4 chronic kidney disease, or unspecified chronic kidney disease; Z79.02 Long term (current) use of antithrombotics/antiplatelets; N18.30 Chronic kidney disease, stage 3 unspecified; R79.89 Other specified abnormal findings of blood chemistry; Z88.2 Allergy status to sulfonamides; Z88.0 Allergy status to penicillin; Z79.899 Other long term (current) drug therapy; E86.0 Dehydration; Z87.891 Personal history of nicotine dependence; R94.31 Abnormal electrocardiogram [ECG] [EKG]; Z86.718 Personal history of other venous thrombosis and embolism; Z95.2 Presence of prosthetic heart valve; Z79.01 Long term (current) use of anticoagulants; E87.6 Hypokalemia; Z66 Do not resuscitate; Z86.711 Personal history of pulmonary embolism; G93.41 Metabolic encephalopathy; M06.9 Rheumatoid arthritis, unspecified; Y92.89 Other specified places as the place of occurrence of the external cause; R73.9 Hyperglycemia, unspecified; T38.0X5A Adverse effect of glucocorticoids and synthetic analogues, initial encounter; D64.9 Anemia, unspecified; F19.921 Other psychoactive substance use, unspecified with intoxication with delirium; Z98.1 Arthrodesis status; Z99.81 Dependence on supplemental oxygen; Z96.653 Presence of artificial knee joint, bilateral

== ENCOUNTER 2021-11-07 14:19 | Inpatient (IN) ==
--- NOTE | 2021-11-07 15:22 | Emergency Department Note ---
Impression & Plan Left knee pain, Cellulitis, Wound infection ED Provider Note NAME: MARCELLA YOUNGBLOOD AGE: 80 SEX: F : 1940 ARRIVES VIA: Ambulance INFORMANT: [Patient][ems, nursing] ED PROVIDER(S): [Vitaliy aTvera MD] CHIEF COMPLAINT: Leg injury HISTORY OF PRESENT ILLNESS: The patient is an 80-year-old female who was sent from her care center because of concerns for infection in the area of the left knee. The patient had a hematoma drained September 14, not quite a month ago. The drain has been since removed. The area seemed more red and swollen and there was concern for infection. The patient states that she really has minimal pain in the knee. She is not feeling chilled or running a fever. No chest pain or shortness of breath. She currently has no complaints to voice. REVIEW OF SYSTEMS: See HPI for pertinent positives and negatives. A total of ten systems were reviewed and were otherwise negative. PMHx/PSHx: See Below SOCIAL HISTORY: See Below. PHYSICAL EXAM: GENERAL: Patient is in no acute distress. HEENT: No acute trauma, normocephalic atraumatic, mucous membranes moist, no nasal congestion, no scleral icterus. NECK: No stridor, no adenopathy, no meningismus, trachea is midline. LUNGS: Clear to auscultation when listening anterior, breath sounds equal, no respiratory distress. HEART: Distant heart tones but the rhythm seems irregular. There is a slight systolic murmur. Normal rate. ABDOMEN: Soft, nontender, bowel sounds positive, no peritonitis. EXTREMITIES: No cyanosis. The patient does have some swelling to the area of the medial left knee. There are 2 wounds here which could be consistent with drain placement. No active drainage. There is some surrounding erythema to both the wounds. There is some mild warmth, minimal pain to palpate. NEUROLOGIC: Awake and alert, no acute motor or sensory deficits, no focal weakness. SKIN: No rash, no jaundice, no diaphoresis. Pale. DIFFERENTIAL DIAGNOSIS: Septic joint, cellulitis, abscess, wound infection, dehydration, electrolyte imbalance, DVT, among others. EMERGENCY DEPARTMENT COURSE/PROCEDURES: ECG: Indication was possible infection and irregular rhythm. The ECG shows what appears to be a sinus tachycardia with a rate of 104. PVCs and PACs are present. LVH is present. There is baseline artifact noted. No ST elevation. QTc is 462. Continuous Cardiac Monitoring: An order was placed for continuous cardiac monitoring. The monitor shows a rate of 85 with sinus rhythm with PACs and PVCs.. MEDICAL DECISION MAKING: There is no leukocytosis. A mild anemia was noted. The anemia is baseline looking back at previous testing. Platelet count slightly low at 100. The patient does have a history of thrombocytopenia. INR was 2.5, consistent with her Coumadin use. No renal failure. No worrisome liver enzyme elevation. C- reactive protein was elevated. Sed rate was not elevated. COVID test returned negative. Left knee film did not show any fracture or osteomyelitis. Left knee CT did show cellulitis and a potential abscess versus hematoma. No osteomyelitis. Patient received IV daptomycin and IV ceftriaxone as antibiotic coverage. I did speak with orthopedics. They did evaluate the knee. They felt that IV antibiotic therapy would be indicated. A hospital stay and observation was felt warranted. She may require orthopedic intervention at some point in the near future but not emergently today. I spoke with the patient, I talked to case management, the on-call hospitalist was consulted. Past Med/Surg History Medical History Acute electrocardiogram changes Altered mental status Anemia C. difficile colitis CAD (coronary artery disease) Chronic anticoagulation CKD (chronic kidney disease) stage 3, GFR 30-59 ml/min Coagulopathy Confusion Diverticular disease hx diverticulitis Elevated troponin Fall GERD (gastroesophageal reflux disease) HLD (hyperlipidemia) HTN (hypertension) Hypokalemia Lumbar disc herniation with radiculopathy Lumbar radiculopathy NSVT (nonsustained ventricular tachycardia) Obstructive sleep apnea WEARS O2 AT 2L AT HS On home oxygen therapy 2L AT HS Rheumatoid arthritis RLS (restless legs syndrome) Severe aortic stenosis prior to TAVR SVT (supraventricular tachycardia) Thrombocytopenia Thrombocytopenia Surgical History H/O colonoscopy H/O eye surgery LEFT History of carpal tunnel surgery RT/LEFT History of esophagogastroduodenoscopy (EGD) History of heart artery stent 03/18/2020-TYLER x 2 to LAD History of lumbar fusion History of tooth extraction History of total knee replacement RT/LEFT S/P CHANNING-BSO S/P TAVR (transcatheter aortic valve replacement) Family History Other Heart disease No family history of adverse response to anesthesia Rheumatoid arthritis Social History Smoking Status: Never smoker Tobacco Type: Cigarettes Second Hand Exposure: Yes (IN THE PAST); Do You Dip or Chew Tobacco: No; Hx Alcohol Use: No Hx Substance Use: No Preferred Language: Serbian Communication Ability: Effective Industrial Relations Commissioner Required: No Beliefs That Will Affect Care: None marital status: / Current Living Situation: Detention Current Living Situation Comment: Lives with How many Children do You have: 1 Other Information That Helps Us Care for You: No Feels Safe at Home: Yes Assistive Devices: Oxygen - at Night and Walker Allergies Allergies Allergy/AdvReac Type Severity Reaction Status Date / Time baclofen Allergy Mild DIZZY Verified 11/07/21 18:53 Penicillins Allergy Mild RASH Verified 11/07/21 18:53 Sulfa (Sulfonamide Allergy Mild HEADACHE Verified 11/07/21 18:53 Antibiotics) Home Meds Home Medications Medication Instructions Recorded Confirmed atorvastatin 40 mg tablet 40 mg PO QAM 07/01/18 11/07/21 metoprolol succinate 50 mg 50 mg PO BID 07/01/18 11/07/21 tablet,extended release 24 hr folic acid 1 mg tablet 2 mg PO QAM 10/17/19 11/07/21 clopidogrel 75 mg tablet 75 mg PO QAM 05/09/20 11/07/21 ezetimibe 10 mg tablet 10 mg PO QAM 04/21/21 11/07/21 pantoprazole 40 mg tablet,delayed 40 mg PO QAM 04/21/21 11/07/21 release ferrous sulfate 325 mg (65 mg 325 mg PO BID 08/21/21 11/07/21 iron) tablet leflunomide 20 mg tablet 20 mg PO DAILY@1200 08/21/21 11/07/21 levothyroxine 50 mcg tablet 50 mcg PO QAM 09/03/21 11/07/21 cyanocobalamin (vitamin B-12) 500 500 mcg PO DAILY 11/07/21 11/07/21 mcg tablet prednisone 5 mg tablet 5 mg PO DAILY 11/07/21 11/07/21 Previous Rx's Medication Instructions Recorded amlodipine 5 mg tablet (Norvasc) 5 mg PO HS #30 tabs 10/14/21 acetaminophen 325 mg tablet 650 mg PO Q4H PRN pain #30 tabs 10/30/21 mirtazapine 15 mg tablet 15 mg PO HS #30 tabs 10/30/21 tramadol 50 mg tablet 25 mg PO Q6H PRN pain (scale score 10/30/21 7-10) #20 tabs warfarin 2.5 mg tablet 1.25 mg PO TuTh@1600 #30 tabs 10/30/21 warfarin 2.5 mg tablet (Jantoven) 2.5 mg PO SuMoWeFrSa@1600 #30 tabs 10/30/21 Results & Data (ED) Vital Signs Vital Signs - 24 hr 11/07/21 14:29 11/07/21 18:01 Temperature 37 C Temperature Source Temporal Artery Scan Pulse Rate 85 Pulse Rate [Left Radial] 95 H Pulse Rhythm [Left Radial] Regular Respiratory Rate 18 18 Respiratory Effort / Characteristics Non-Labored Respiratory Depth Normal Blood Pressure [Left Arm] 134/84 Blood Pressure Mean [Left Arm] 100 Pulse Oximetry 100 95 Oxygen Delivery Method Room Air Sepsis Recent Fever Within 48 Hours No Sepsis New/Unexplained Change in Mental Status No Sepsis Action Taken by Nursing No Action Required Home Medications Current Medication List: was personally reviewed by me Laboratory Data Attestation: I reviewed the patient's lab results. Result diagrams: 11/08/21 07:51 11/08/21 07:51 Lab Results 11/07/21 11/07/21 11/07/21 Range/Units 16:40 16:40 16:40 WBC 5.95 (4.8-10.8) K/ul RBC 3.03 L (3.93-5.22) M/uL Hgb 10.2 L (12.0-16.0) g/dl Hct 31.0 L (34.1-44.9) % MCV 102.3 H (80.0-100.0) fL MCH 33.7 (25.0-34.0) pg MCHC 32.9 (32.0-36.0) g/dL RDW Std Deviation 55.6 H (36.4-46.3) fL RDW Coeff of Keila 14.7 H (11.5-14.5) % Plt Count 101 L (130-400) K/uL MPV 10.8 (9.4-12.3) fL Immature Gran % (Auto) 0.8 % Neut % (Auto) 63.5 % Lymph % (Auto) 18.0 % [place] % (Auto) 15.3 % Eos % (Auto) 1.2 % Baso % (Auto) 1.2 % Neut # (Auto) 3.78 (1.4-6.5) K/uL Lymph # (Auto) 1.07 L (1.2-3.4) K/uL [place] # (Auto) 0.91 H (0.24-0.82) K/uL Eos # (Auto) 0.07 (0-0.50) K/uL Baso # (Auto) 0.07 (0-0.2) K/uL Immature Gran # (Auto) 0.05 H (0.00-0.02) K/uL PT 25.0 H (9.0-12.0) Seconds INR 2.5 H (0.9-1.1) APTT 34.5 H (21.0-31.0) Seconds PTT Ratio 1.3 Sodium 134 L (136-145) mmol/L Potassium 3.7 (3.5-5.1) mmol/L Chloride 105 (98-107) mmol/L Carbon Dioxide 22 (21-32) mmol/L Anion Gap 7 (3-11) BUN 15 (6-23) mg/dl Creatinine 0.75 (0.6-1.2) mg/dl Est Cr Clr Drug Dosing Not Reportable Est GFR ( Amer) 86.6 ml/min Est GFR (Non-Af Amer) 74.8 ml/min BUN/Creatinine Ratio 20.0 (10-20) Glucose 84 (70-99(Fasting)) mg/dl Calcium 8.1 L (8.5-10.1) mg/dl Total Bilirubin 1.0 (0.2-1.0) mg/dl AST 30 (13-39) U/L ALT 16 (7-52) U/L Alkaline Phosphatase 105 H (34-104) U/L C-Reactive Protein (0-0.5) mg/dl Total Protein 5.7 L (6.0-8.3) gm/dl Albumin 3.2 L (3.4-5.0) gm/dl Globulin 2.5 (2.5-4.0) gm/dl Albumin/Globulin Ratio 1.3 (0.9-2) 11/07/21 Range/Units 16:40 WBC (4.8-10.8) K/ul RBC (3.93-5.22) M/uL Hgb (12.0-16.0) g/dl Hct (34.1-44.9) % MCV (80.0-100.0) fL MCH (25.0-34.0) pg MCHC (32.0-36.0) g/dL RDW Std Deviation (36.4-46.3) fL RDW Coeff of Keila (11.5-14.5) % Plt Count (130-400) K/uL MPV (9.4-12.3) fL Immature Gran % (Auto) % Neut % (Auto) % Lymph % (Auto) % [place] % (Auto) % Eos % (Auto) % Baso % (Auto) % Neut # (Auto) (1.4-6.5) K/uL Lymph # (Auto) (1.2-3.4) K/uL [place] # (Auto) (0.24-0.82) K/uL Eos # (Auto) (0-0.50) K/uL Baso # (Auto) (0-0.2) K/uL Immature Gran # (Auto) (0.00-0.02) K/uL PT (9.0-12.0) Seconds INR (0.9-1.1) APTT (21.0-31.0) Seconds PTT Ratio Sodium (136-145) mmol/L Potassium (3.5-5.1) mmol/L Chloride (98-107) mmol/L Carbon Dioxide (21-32) mmol/L Anion Gap (3-11) BUN (6-23) mg/dl Creatinine (0.6-1.2) mg/dl Est Cr Clr Drug Dosing Est GFR ( Amer) ml/min Est GFR (Non-Af Amer) ml/min BUN/Creatinine Ratio (10-20) Glucose (70-99(Fasting)) mg/dl Calcium (8.5-10.1) mg/dl Total Bilirubin (0.2-1.0) mg/dl AST (13-39) U/L ALT (7-52) U/L Alkaline Phosphatase (34-104) U/L C-Reactive Protein 3.82 H (0-0.5) mg/dl Total Protein (6.0-8.3) gm/dl Albumin (3.4-5.0) gm/dl Globulin (2.5-4.0) gm/dl Albumin/Globulin Ratio (0.9-2) Administered Medications Amlodipine Besylate (Amlodipine Besylate 5 Mg Tab) 5 mg PO HS STEPHANIE Stop: 12/07/21 22:05 Last Admin: 11/07/21 23:14 Dose: Not Given Documented By: AMY Cyanocobalamin (Cyanocobalamin (B-12) 500 Mcg Tablet) 500 mcg PO DAILY STEPHANIE Stop: 12/08/21 08:59 Last Admin: 11/08/21 11:08 Dose: Not Given Documented By: FRANKLYN Ezetimibe (Ezetimibe 10 Mg Tablet) 10 mg PO QAM [facility] Stop: 12/08/21 08:59 Last Admin: 11/08/21 11:08 Dose: Not Given Documented By: FRANKLYN Ferrous Sulfate (Ferrous Sulfate 325 Mg Tab) 325 mg PO BID [facility] Stop: 12/07/21 22:05 Last Admin: 11/08/21 11:08 Dose: Not Given Documented By: Admin: 11/07/21 23:14 Dose: 325 mg Documented By: AMY Folic Acid (Folic Acid 1 Mg Tab) 2 mg PO QAM [facility] Stop: 12/08/21 08:59 Last Admin: 11/08/21 11:08 Dose: Not Given Documented By: FRANKLYN Lactobacillus Acidophilus (Advanced Probiotic 1250 Mg Capsule) 2 cap PO DAILY STEPHANIE Stop: 12/08/21 08:59 Last Admin: 11/08/21 11:09 Dose: Not Given Documented By: FRANKLYN Levothyroxine Sodium (Levothyroxine Sodium 50 Mcg Tablet) 50 mcg PO DAILY@0630 [facility] Stop: 12/08/21 06:29 Last Admin: 11/08/21 06:16 Dose: Not Given Documented By: AMY Metoprolol Succinate (Metoprolol Succ 50mg Ext Rel Tab) 50 mg PO BID [facility] Stop: 12/07/21 22:05 Last Admin: 11/08/21 11:09 Dose: Not Given Documented By: Admin: 11/07/21 23:14 Dose: Not Given Documented By: AMY Mirtazapine (Mirtazapine Tab 15 Mg Tab) 15 mg PO HS [facility] Stop: 12/07/21 22:05 Last Admin: 11/07/21 23:14 Dose: Not Given Documented By: AMY Ondansetron HCl (Ondansetron Inj 2 Mg/Ml 2 Ml Vial) 4 mg IV Q6H PRN PRN Reason: Nausea Stop: 12/07/21 22:05 Last Admin: 11/08/21 10:35 Dose: 4 mg Documented By: Admin: 11/07/21 22:20 Dose: 4 mg Documented By: MARY JANE Pantoprazole Sodium (Pantoprazole 40 Mg Tab) [facility] [place] [place]: 12/08/21 08:59 Last Admin: 11/08/21 11:09 Dose: Not Given Documented By: FRANKLYN Prednisone (Prednisone 5 Mg Tab) 5 mg PO DAILY [facility] Stop: 12/08/21 08:59 Last Admin: 11/08/21 11:09 Dose: Not Given Documented By: FRANKLYN Tramadol HCl (Tramadol Hcl 50 Mg Tablet) 25 mg PO Q6H PRN PRN Reason: pain (scale score 7-10) Stop: 12/07/21 22:05 Last Admin: 11/08/21 04:18 Dose: 25 mg Documented By: RON Discontinued Medications Ceftriaxone Sodium (Rocephin) 2,000 mg in 70 mls @ 140 mls/hr IV NOW STA Stop: 11/07/21 17:07 Last Infusion: 11/07/21 17:50 Dose: 0 mls/hr Documented By: Admin: 11/07/21 17:12 Dose: 140 mls/hr Documented By: HERSON Phytonadione 2.5 mg/ Dextrose 50.25 mls @ 100.5 mls/hr IV ONE STA Stop: 11/07/21 19:49 Last Infusion: 11/07/21 20:25 Dose: 0 mls/hr Documented By: Admin: 11/07/21 19:48 Dose: 100.5 mls/hr Documented By: SHANIQUA Daptomycin 200 mg/ Syringe 4 mls @ 2 mls/min IV ONE STA; Protocol Stop: 11/07/21 19:23 Last Admin: 11/07/21 19:48 Dose: 2 mls/min Documented By: SHANIQUA Cefepime HCl 2,000 mg/ Syringe 20 mls @ 5 mls/min IV Q8H [facility]; Protocol Stop: 11/15/21 00:00 Last Admin: 11/08/21 08:00 Dose: 5 mls/min Documented By: Admin: 11/08/21 00:19 Dose: 5 mls/min Documented By: AMY Imaging Data Radiologist's Impression: CT knee LT wo con CLINICAL HISTORY: Status post total knee replacement with soft tissue swelling. Evaluate for abscess or osteo COMPARISON STUDY: No previous studies for comparison. CT DOSE: 174.42 mGy.cm TECHNIQUE: Standard CT of the left knee is performed without IV contrast. Multiplanar reconstruction is performed. A dose lowering technique was utilized adhering to the principles of ALARA. FINDINGS: This is a limited examination due to the lack of intravenous contrast. Bones: There is no evidence for an acute fracture or dislocation. There are no lytic or blastic lesions. Joints: There is a total knee replacement with imaging artifact present. The bones are in anatomic alignment. Soft tissues: There is evidence for a soft tissue ulceration along the superolateral aspect of the lower thigh with underlying subcutaneous fluid collection within the deep fascial plane. This measures approximately 4.5 x 5.0 x 1.1 cm in craniocaudad, AP and transverse diameters respectively. The findings are most characteristic of a subcutaneous abscess. However, it appears separate from the patient's knee prosthesis. There is an intra-articular effusion present of the knee joint which is again separate from the fluid collection in the subcutaneous soft tissues. IMPRESSION: 1. Evidence for soft tissue ulceration with underlying deep subcutaneous fluid collection most characteristic of an abscess. 2. However, this is separate from the patient's total knee prosthesis with no definite evidence for communication with the joint. 3. There is a small to moderate-sized joint effusion. 4. Imaging artifact is present related to the total knee replacement with no definite MR evidence for osteomyelitis. XR knee LT 3V CLINICAL HISTORY: left knee infection? TECHNIQUE: 3 views of the left knee were obtained. Comparison: Comparison is made to left knee radiographs 09/11/2021 FINDINGS: Patient status post total knee arthroplasty. Compared to prior exam, no focal e rosive changes seen to suggest osteomyelitis. Joint spaces are well-preserved. Ill-defined effusion is seen and there is soft tissue swelling about the knee. Vascular calcifications are noted. IMPRESSION: Soft tissue swelling is seen without definite evidence of focal erosive changes to suggest osteomyelitis. Attention is recommended on follow-up CT left knee as it is a more sensitive modality. Discharge Plan Visit Data Chief Complaint: Leg Injury/Pain Stated Complaint: POSSIBLE LEFT KNEE INFECTION ED Provider: Vitaliy Tavera Discharge Problem: Left knee pain, Cellulitis, Wound infection Patient Disposition: Admitted As Inpatient Condition: Good Discharge Instructions Interventions: ED Discharge Assessment Last Done: 11/07/21 21:27
[2021-11-07] MEDS ORDERED: cefTRIAXone SODIUM 2,000 MG/70 ML BAG IV STA (16:38)
--- NOTE | 2021-11-07 16:44 | XRay Report ---
XR knee LT 3V CLINICAL HISTORY: left knee infection? TECHNIQUE: 3 views of the left knee were obtained. Comparison: Comparison is made to left knee radiographs 09/11/2021 FINDINGS: Patient status post total knee arthroplasty. Compared to prior exam, no focal erosive changes seen to suggest osteomyelitis. Joint spaces are well-preserved. Ill-defined effusion is seen and there is so ft tissue swelling about the knee. Vascular calcifications are noted. IMPRESSION: Soft tissue swelling is seen without definite evidence of focal erosive changes to suggest osteomyeli tis. Attention is recommended on follow-up CT left knee as it is a more sensitive modality. ACT 112: Negative or not required by law. Electronically signed by: Leland Wayne M.D. 11/07/2021 4:42 PM
[2021-11-07 16:58] LABS: Basophils # (auto) 0.07 K/uL (0-0.2); Basophils % (auto) 1.2 %; Eosinophils # (auto) 0.07 K/uL (0-0.50); Eosinophils % (auto) 1.2 %; Hemoglobin 10.2 g/dl (12.0-16.0); Immature Granulocytes # (auto) 0.05 K/uL (0.00-0.02); Immature Granulocytes % (auto) 0.8 %; Lymphocytes # (auto) 1.07 K/uL (1.2-3.4); Mean Corpuscular Hemoglobin 33.7 pg (25.0-34.0); Mean Corpuscular Hgb Conc 32.9 g/dL (32.0-36.0); Mean Corpuscular Volume 102.3 fL (80.0-100.0); Mean Platelet Volume 10.8 fL (9.4-12.3); Monocytes # (auto) 0.91 K/uL (0.24-0.82); Monocytes % (auto) 15.3 %; Neutrophils # (auto) 3.78 K/uL (1.4-6.5); Neutrophils % (auto) 63.5 %; Platelet Count 101 K/uL (130-400); RDW Coefficient of Variation 14.7 % (11.5-14.5); RDW Standard Deviation 55.6 fL (36.4-46.3); Red Blood Count 3.03 M/uL (3.93-5.22); White Blood Count 5.95 K/ul (4.8-10.8)
[2021-11-07 17:03] LABS: INR 2.5 (0.9-1.1); Partial Thromboplastin Ratio 1.3; Partial Thromboplastin Time 34.5 Seconds (21.0-31.0)
[2021-11-07 17:10] LABS: Alanine Aminotransferase 16 U/L (7-52); Albumin Globulin Ratio 1.3 (0.9-2); Albumin Level 3.2 gm/dl (3.4-5.0); Alkaline Phosphatase 105 U/L (34-104); Anion Gap 7 (3-11); Aspartate Aminotransferase 30 U/L (13-39); Blood Urea Nitrogen 15 mg/dl (6-23); Calcium 8.1 mg/dl (8.5-10.1); Carbon Dioxide 22 mmol/L (21-32); Chloride 105 mmol/L (98-107); Est GFR (African American) 86.6 ml/min; Est GFR (Non-African American) 74.8 ml/min; Globulin 2.5 gm/dl (2.5-4.0); Glucose 84 mg/dl (70-99(Fasting)); Potassium 3.7 mmol/L (3.5-5.1); Sodium 134 mmol/L (136-145); Total Protein 5.7 gm/dl (6.0-8.3)
--- NOTE | 2021-11-07 18:08 | CT Scan Report ---
CT knee LT wo con CLINICAL HISTORY: Status post total knee replacement with soft tissue swelling. Evaluate for abscess or osteo COMPARISON STUDY: No previous studies for comparison. CT DOSE: 174.42 mGy.cm TECHNIQUE: Standard CT of the left knee is performed without IV contrast. Multiplanar reconstruction is performed. A dose lowering technique was utilized adhering to the principles of ALARA. FINDINGS: This is a limited examination due to the lack of intravenous contrast. Bones: There is no evidence for an acute fracture or dislocation. There are no lytic or blastic lesio ns. Joints: There is a total knee replacement with imaging artifact present. The bones are in anatomic al ignment. Soft tissues: There is evidence for a soft tissue ulceration along the superolateral aspect of the lo wer thigh with underlying subcutaneous fluid collection within the deep fascial plane. This measures approximately 4.5 x 5.0 x 1.1 cm in craniocaudad, AP and transverse diameters respectively. The findi ngs are most characteristic of a subcutaneous abscess. However, it appears separate from the patient' s knee prosthesis. There is an intra-articular effusion present of the knee joint which is again separate from the fluid collection in the subcutaneous soft tissues. IMPRESSION: 1. Evidence for soft tissue ulceration with underlying deep subcutaneous fluid collection most charac teristic of an abscess. 2. However, this is separate from the patient's total knee prosthesis with no definite evidence for c ommunication with the joint. 3. There is a small to moderate-sized joint effusion. 4. Imaging artifact is present related to the total knee replacement with no definite MR evidence for osteomyelitis. ACT 112: Negative or not required by law. Electronically signed by: Speedy Caicedo M.D. 11/07/2021 6:05 PM
--- NOTE | 2021-11-07 19:02 | History & Physical Report ---
Date of Service November 07, 2021 Assessment & Plan (1) Cellulitis of left knee: (2) Cutaneous abscess of left knee: (3) CAD (coronary artery disease): (4) S/P TAVR (transcatheter aortic valve replacement): (5) Rheumatoid arthritis: (6) Chronic anemia: (7) Obstructive sleep apnea: (8) Hx pulmonary embolism: Plan This is an 80-year-old female who has a significant past medical history of CAD status post TYLER x2 to mid LAD 03/18/2020, history of aortic stenosis status post TAVR March 2021, HTN, HLD, INA on 2 L of O2 at at bedtime, rheumatoid arthritis on leflunomide and chronic prednisone therapy, chronic anemia, CKD stage III, history of PE/DVT in 2017 anticoagulated on warfarin who presents to ED 2/2 worsening L knee redness and concern for infection. Patient does not meet criteria for SIRS or sepsis. She had left knee hematoma drained in August. Has a residual wound from where it was drained. Left knee has been becoming increasingly more red, swollen and warm. Evidence of cellulitis. CT confirming a likely abscess with no joint extension. Patient does have a prosthesis in her left knee. ER provider contacted orthopedics who also evaluated the images. Uncertain if truly abscess versus recurrent hematoma. Cellulitis of left knee Abscess of left knee Admit to medical Broad-spectrum antibiotics with IV daptomycin and cefepime given immunosuppressed in setting of rheumatoid arthritis treatment Consult orthopedics N.p.o. after midnight Will reverse INR with 2.5 mg IV vitamin K and hold warfarin Also hold Plavix Elevate left lower extremity, will make nonweightbearing for now Consult infectious disease CAD status post TYLER 03/18/2020 History of TAVR in March 2021 Chronic diastolic heart failure HTN HLD Patient's volume status compensated She denies chest pain or shortness of breath EKG without change Holding Plavix in setting of likely procedure, resume when okay with Ortho Holding statin in setting of daptomycin, resume when able Continue metoprolol and amlodipine Rheumatoid arthritis On chronic prednisone therapy as well as leflunomide Previous admissions and discharge summaries reflect patient taking methotrexate Methotrexate is currently not on patient's med reconciliation from [facility] and this was confirmed with facility per external pharmacy looks like last prescribed 10/17/21, therefore not sure where it may have dropped off but may need to be determined if pt needs to be on this medication or not for her RA INA on 2L O2 at HS Hypothyroidism continue levothyroxine Chronic Anemia hgb stable, baseline ~ 10 CKD -3 renal fxn stable avoid nephrotoxic agents Hx of PE/DVT in [address] [facility] warfarin therapy INR 2.5, will reverse with Vit K 2.5 IV x 1 now and hold warfarin, discussed with ortho resume warfarin at discretion of orthopedics Dispo: medical, likely to return back to [facility] FULL CODE PCP: Shereen Patient was seen and examined in collaboration with, Dr. Maloney, please see addendum History of Present Illness Chief Complaint: Referred to ED due to worsening redness and swelling of L knee x several days. Primary Care Provider: [facility] This is an 80-year-old female who has a significant past medical history of CAD, history of aortic stenosis status post TAVR, HTN, HLD, INA, rheumatoid arthritis on leflunomide and chronic prednisone therapy, chronic anemia, CKD stage III, history of PE/DVT anticoagulated on warfarin who presents to ED 2/2 worsening L knee redness and concern for infection. She lives at [facility]. Staff at [facility] felt her L knee has been getting worse and more red. Patient was recently confined 10/26-10/30/21 due to AMS, polypharmacy and supratherapeutic INR. She denies any significant L knee pain or difficulty walking. She denies f/c/s, dizziness, lightheaded, RUEDA, chest pain, sob, cough, n/v/d, abd pain, change in bowel or urinary habits. She denies any acute complaints. Of significance patient has prior history of left total knee arthroplasty. On September 14 she had a hematoma drained. A drain remained in place and had since been removed. The location of the drain site never healed over. The surrounding area has been becoming increasingly more swollen and erythematous. There is also a notable ulceration superior to the knee. Patient denies difficulty walking or pain. CT was obtained in ER which revealed evidence for soft tissue ulceration with underlying deep subcutaneous fluid collection most characteristic of an abscess. This is separate from the patient's total knee prosthesis with no definitive evidence for communication with the joint. A small to moderate joint effusion is also noted. In ED patient remained hemodynamically stable and did not meet sepsis criteria. Her CRP was elevated at 3.82 and ESR is still pending. Allergies Allergy/AdvReac Type Severity Reaction Status Date / Time baclofen Allergy Mild DIZZY Verified 11/07/21 18:53 Penicillins Allergy Mild RASH Verified 11/07/21 18:53 Sulfa (Sulfonamide Allergy Mild HEADACHE Verified 11/07/21 18:53 Antibiotics) Home Medications Medication Instructions Recorded Confirmed Type atorvastatin 40 mg tablet 40 mg PO QAM 07/01/18 11/07/21 History metoprolol succinate 50 mg 50 mg PO BID 07/01/18 11/07/21 History tablet,extended release 24 hr folic acid 1 mg tablet 2 mg PO QAM 10/17/19 11/07/21 History clopidogrel 75 mg tablet 75 mg PO QAM 05/09/20 11/07/21 History ezetimibe 10 mg tablet 10 mg PO QAM 04/21/21 11/07/21 History pantoprazole 40 mg tablet,delayed 40 mg PO QAM 04/21/21 11/07/21 History release ferrous sulfate 325 mg (65 mg 325 mg PO BID 08/21/21 11/07/21 History iron) tablet leflunomide 20 mg tablet 20 mg PO DAILY@1200 08/21/21 11/07/21 History levothyroxine 50 mcg tablet 50 mcg PO QAM 09/03/21 11/07/21 History amlodipine 5 mg tablet (Norvasc) 5 mg PO HS #30 tabs 10/14/21 11/07/21 Rx acetaminophen 325 mg tablet 650 mg PO Q4H PRN pain #30 tabs 10/30/21 11/07/21 Rx mirtazapine 15 mg tablet 15 mg PO HS #30 tabs 10/30/21 11/07/21 Rx tramadol 50 mg tablet 25 mg PO Q6H PRN pain (scale score 10/30/21 11/07/21 Rx 7-10) #20 tabs warfarin 2.5 mg tablet 1.25 mg PO TuTh@1600 #30 tabs 10/30/21 11/07/21 Rx warfarin 2.5 mg tablet (Jantoven) 2.5 mg PO SuMoWeFrSa@1600 #30 tabs 10/30/21 11/07/21 Rx cyanocobalamin (vitamin B-12) 500 500 mcg PO DAILY 11/07/21 11/07/21 History mcg tablet prednisone 5 mg tablet 5 mg PO DAILY 11/07/21 11/07/21 History Past Med/Surg History Medical History (Updated 11/07/21 @ 19:40 by Micki Mckeon PA-C) Acute electrocardiogram changes Altered mental status Anemia C. difficile colitis CAD (coronary artery disease) Chronic anticoagulation CKD (chronic kidney disease) stage 3, GFR 30-59 ml/min Coagulopathy Confusion Diverticular disease hx diverticulitis Elevated troponin Fall GERD (gastroesophageal reflux disease) HLD (hyperlipidemia) HTN (hypertension) Hypokalemia Lumbar disc herniation with radiculopathy Lumbar radiculopathy NSVT (nonsustained ventricular tachycardia) Obstructive sleep apnea WEARS O2 AT 2L AT HS On home oxygen therapy 2L AT HS Rheumatoid arthritis RLS (restless legs syndrome) Severe aortic stenosis prior to TAVR SVT (supraventricular tachycardia) Thrombocytopenia Thrombocytopenia Surgical History H/O colonoscopy H/O eye surgery LEFT History of carpal tunnel surgery RT/LEFT History of esophagogastroduodenoscopy (EGD) History of heart artery stent 03/18/2020-TYLER x 2 to LAD History of lumbar fusion History of tooth extraction History of total knee replacement RT/LEFT S/P CHANNING-BSO S/P TAVR (transcatheter aortic valve replacement) Family History Other Heart disease No family history of adverse response to anesthesia Rheumatoid arthritis Social History Smoking Status: Never smoker Tobacco Type: Cigarettes Second Hand Exposure: Yes (IN THE PAST); Hx Alcohol Use: No Hx Substance Use: No Preferred Language: Burkinan Communication Ability: Effective General Utility Worker Required: No Beliefs That Will Affect Care: None marital status: / Current Living Situation: Custodial Current Living Situation Comment: Lives with How many Children do You have: 1 Feels Safe at Home: Yes Assistive Devices: Oxygen - at Night and Walker Review of Systems Review of Systems: All systems reviewed & are unremarkable except as noted in HPI & below Physical Exam Physical Exam: Please refer to Dr. Maloney addendum for physical exam findings. Results & Data Results & Data ([facility]) Vital Signs (Past 12 Hours) Vital Signs Temp Pulse Pulse Resp BP Pulse Ox O2 Del Method 11/07/21 18:01 95 H 18 134/84 95 11/07/21 14:29 37 C 85 18 100 Room Air Diagnostic Findings Knee X-Ray 11/07/21 14:37 XR knee LT 3V CLINICAL HISTORY: left knee infection? TECHNIQUE: 3 views of the left knee were obtained. Comparison: Comparison is made to left knee radiographs 09/11/2021 FINDINGS: Patient status post total knee arthroplasty. Compared to prior exam, no focal erosive changes seen to suggest osteomyelitis. Joint spaces are well-preserved. Ill-defined effusion is seen and there is soft tissue swelling about the knee. Vascular calcifications are noted. IMPRESSION: Soft tissue swelling is seen without definite evidence of focal erosive changes to suggest osteomyelitis. Attention is recommended on follow-up CT left knee as it is a more sensitive modality. ACT 112: Negative or not required by law. Electronically signed by: Leland Wayne M.D. 11/07/2021 4:[address] 11/07/21 17:32 CT knee LT wo con CLINICAL HISTORY: Status post total knee replacement with soft tissue swelling. Evaluate for abscess or osteo COMPARISON STUDY: No previous studies for comparison. CT DOSE: 174.42 mGy.cm TECHNIQUE: Standard CT of the left knee is performed without IV contrast. Multiplanar reconstruction is performed. A dose lowering technique was utilized adhering to the principles of ALARA. FINDINGS: This is a limited examination due to the lack of intravenous contrast. Bones: There is no evidence for an acute fracture or dislocation. There are no lytic or blastic lesions. Joints: There is a total knee replacement with imaging artifact present. The bones are in anatomic alignment. Soft tissues: There is evidence for a soft tissue ulceration along the superolateral aspect of the lower thigh with underlying subcutaneous fluid collection within the deep fascial plane. This measures approximately 4.5 x 5.0 x 1.1 cm in craniocaudad, AP and transverse diameters respectively. The findings are most characteristic of a subcutaneous abscess. However, it appears separate from the patient's knee prosthesis. There is an intra-articular effusion present of the knee joint which is again separate from the fluid collection in the subcutaneous soft tissues. IMPRESSION: 1. Evidence for soft tissue ulceration with underlying deep subcutaneous fluid collection most characteristic of an abscess. 2. However, this is separate from the patient's total knee prosthesis with no definite evidence for communication with the joint. 3. There is a small to moderate-sized joint effusion. 4. Imaging artifact is present related to the total knee replacement with no definite MR evidence for osteomyelitis. ACT 112: Negative or not required by law. Electronically signed by: Speedy Caicedo M.D. 11/07/2021 6:05 PM Medications Administered Medication List Discontinued Medications Ceftriaxone Sodium (Rocephin) 2,000 mg in 70 mls @ 140 mls/hr IV NOW STA Stop: 11/07/21 17:07 Last Infusion: 11/07/21 17:50 Dose: 0 mls/hr Documented By: Admin: 11/07/21 17:12 Dose: 140 mls/hr Documented By: HERSON ECG Rate (beats per minute): 104 Rhythm: sinus tachycardia Findings: + PVC COVID-19 Results Results COVID-19 Adm Lab Results: RBC 3.03 M/uL (3.93-5.22) L 11/07/21 WBC 5.95 K/ul (4.8-10.8) 11/07/21 Hgb 10.2 g/dl (12.0-16.0) L 11/07/21 Hct 31.0 % (34.1-44.9) L 11/07/21 Plt Count 101 K/uL (130-400) L 11/07/21 Neutrophils (%) (Auto) 63.5 % 11/07/21 Lymphocytes (%) (Auto) 18.0 % 11/07/21 Monocytes # (Auto) 0.91 K/uL (0.24-0.82) H 11/07/21 Eosinophils # (Auto) 0.07 K/uL (0-0.50) 11/07/21 Immature Granulocyte % (Auto) 0.8 % 11/07/21 Neutrophils # (Auto) 3.78 K/uL (1.4-6.5) 11/07/21 Lymphocytes # (Auto) 1.07 K/uL (1.2-3.4) L 11/07/21 Monocytes # (Auto) 0.91 K/uL (0.24-0.82) H 11/07/21 Eosinophils # (Auto) 0.07 K/uL (0-0.50) 11/07/21 Basophils # (Auto) 0.07 K/uL (0-0.2) 11/07/21 Immature Granulocyte # (Auto) 0.05 K/uL (0.00-0.02) H 11/07 Na 134 mmol/L (136-145) L 11/07/21 K 3.7 mmol/L (3.5-5.1) 11/07/21 Cl 105 mmol/L (98-107) 11/07/21 CO2 22 mmol/L (21-32) 11/07/21 Anion Gap 7 (3-11) 11/07/21 BUN 15 mg/dl (6-23) 11/07/21 Creatinine 0.75 mg/dl (0.6-1.2) 11/07/21 BUN/Creatinine Ratio 20.0 (10-20) 11/07/21 Glucose Level 84 mg/dl (70-99(Fasting)) 11/07/21 Ca 8.1 mg/dl (8.5-10.1) L 11/07/21 Total Bilirubin 1.0 mg/dl (0.2-1.0) 11/07/21 AST/SGOT 30 U/L (13-39) 11/07/21 ALT/SGPT 16 U/L (7-52) 11/07/21 Alkaline Phosphatase 105 U/L (34-104) H 11/07/21 Total Protein 5.7 gm/dl (6.0-8.3) L 11/07/21 Albumin 3.2 gm/dl (3.4-5.0) L 11/07/21 Globulin 2.5 gm/dl (2.5-4.0) 11/07/21 Albumin/Globulin Ratio 1.3 (0.9-2) 11/07/21 PTT 34.5 Seconds (21.0-31.0) H 11/07/21 INR 2.5 (0.9-1.1) H 11/07/21 SARS-CoV-2, RNA, NAAT Pending 11/07/21 Code Status & VTE Plan Code Status FULL CODE VTE Prophylaxis Plan VTE Prophylaxis will be ordered: No (1) Rheumatoid arthritis Rheumatoid arthritis location: unspecified site Rheumatoid factor presence: unspecified presence Qualified Code(s): M06.9 - Rheumatoid arthritis, unspecified
[2021-11-07] MEDS ORDERED: PHYTONADIONE 2.5 MG in DEXTROSE 5% 50 ML IV STA (19:20)
[2021-11-07] MEDS ORDERED: DAPTOmycin 200 MG in SYRINGE 0 ML IV STA (19:22)
--- NOTE | 2021-11-07 19:24 | Communication Note ---
Date of Service: November 07, 2021 Attending Addendum: care coordinated with ELVIRA Mckeon please refer to her notes for full details, I agree with her notes patient seen and examined, records reviewed by myself as well on exam, patient seen resting in bed, comfortable oriented x 2-3, answers most questions appropriately feels fine overall, minimal discomfort L knee no other symptoms VS noted and reviewed General- oriented x 2-3, not in distress, speaks in sentences with no effort or accessory muscle use Head- atraumatic Eyes- PERRL, EOMI, anicteric ENT- oropharynx clear Neck- supple, no JVD, no adenopathy, no thyromegaly; carotids +2/2, no bruits appreciated Lungs- clear to auscultation bilaterally, no rales/wheezes Heart- normal rate, regular rhythm; no murmur, no gallop, no rub appreciated Abdomen- normal bowel sounds, nondistended, soft, nontender, no masses or hepatosplenomegaly Extremities- LLE: knee- (+) moderate erythema, edema, dry ulcer, mild tenderness lower leg- moderate edema, mild warmth RLE: mild edema, no calf tenderness, no erythema; peripheral pulses intact Neuro- alert, oriented x 2-3; CN 2-12 grossly intact; motor 5/5 bila terally;sensation 100% on all extremities; no other gross focal neurologic deficits Skin- warm & dry ASSESSMENT AND PLAN LEFT KNEE CELLULITIS, POSSIBLE SEPTIC ARTHRITIS, INFECTED KNEE EFFUSION LEFT LOWER LEG CELLULITIS recent drainage of L knee hematoma on chronic Prednisone, Methotrexate for RA on coumadin for recurrent PE/DVT CT knee: 1. Evidence for soft tissue ulceration with underlying deep subcutaneous fluid collection most characteristic of an abscess. 2. However, this is separate from the patient's total knee prosthesis with no definite evidence for communication with the joint. 3. There is a small to moderate-sized joint effusion. 4. Imaging artifact is present related to the total knee replacement with no definite MR evidence for osteomyelitis. -- ff up cultures -- IV Dapto + Cefepime -- Ortho consulted, possible drainage in AM, INR 2.5, Vit 2.5mg IV ordered, repeat INR tomorrow, hold Plavix as well -- resident of [facility] other diagnoses and plan of care as per ELVIRA Mckeon's notes Gilbert Maloney MD
[2021-11-07] MEDS ORDERED: POLYETHYLENE (MIRALAX) 17 GM PACK PO PRN (22:06)
[2021-11-07] MEDS ORDERED: ALUMINUM/MAGNESIUM SUSP 30 ML UDC PO PRN (22:06)
[2021-11-07] MEDS ORDERED: MAGNESIUM HYDROXIDE SUSP 30 ML UDC PO PRN (22:06)
[2021-11-07] MEDS: ONDANSETRON INJ 2 MG/ML 2 ML VIAL IV PRN (22:20)
[2021-11-07] MEDS: MIRTAZAPINE TAB 15 MG TAB PO SCH (23:14)
[2021-11-07] MEDS: amLODIPine BESYLATE 5 MG TAB PO SCH (23:14)
[2021-11-07] MEDS: METOPROLOL SUCC 50MG EXT REL TAB PO SCH (23:14)
[2021-11-07] MEDS: FERROUS SULFATE 325 MG TAB PO SCH (23:14)
[2021-11-08] MEDS: CEFEPIME 2,000 MG in SYRINGE 0 ML IV SCH ×3 (00:19→20:15)
[2021-11-08] MEDS: traMADol HCL 50 MG TABLET PO PRN (04:18)
[2021-11-08] MEDS: LEVOTHYROXINE SODIUM 50 MCG TABLET PO SCH ×2 (06:14→06:16)
--- NOTE | 2021-11-08 06:42 | Electrocardiogram Report ---
Test Reason : Blood Pressure : / mmHG Vent. Rate : 104 BPM Atrial Rate : 104 BPM P-R Int : 198 ms QRS Dur : 116 ms QT Int : 352 ms P-R-T Axes : 031 -43 127 degrees QTc Int : 462 ms Poor data quality, interpretation may be adversely affected Sinus tachycardia with Premature supraventricular complexes and with frequent Premature ventricular c omplexes Left axis deviation Left ventricular hypertrophy with QRS widening and repolarization abnormality Poor R wave progression, consider anterior SD vs. lead placement vs. LVH Non-specific intra-ventricular conduction block Abnormal ECG When compared with ECG of 26-OCT-2021 16:02, Premature supraventricular complexes are now Present Non-specific intra-ventricular conduction block has replaced Left bundle branch block Confirmed by Guido lBue ([id number]) on 11/08/2021 6:41:56 AM Referred By: Confirmed By:Guido Blue
[2021-11-08 08:51] LABS: INR 1.3 (0.9-1.1); Prothrombin Time 13.2 Seconds (9.0-12.0)
[2021-11-08 09:06] LABS: Basophils # (auto) 0.03 K/uL (0-0.2); Basophils % (auto) 0.6 %; Echinocytes 1+; Eosinophils # (auto) 0.04 K/uL (0-0.50); Eosinophils % (auto) 0.8 %; Hematocrit (blood only) 25.5 % (34.1-44.9); Hemoglobin 8.5 g/dl (12.0-16.0); Immature Granulocytes # (auto) 0.04 K/uL (0.00-0.02); Immature Granulocytes % (auto) 0.8 %; Lymphocytes # (auto) 0.35 K/uL (1.2-3.4); Lymphocytes % (auto) 7.1 %; Mean Corpuscular Hemoglobin 33.6 pg (25.0-34.0); Mean Corpuscular Hgb Conc 33.3 g/dL (32.0-36.0); Mean Corpuscular Volume 100.8 fL (80.0-100.0); Monocytes % (auto) 10.2 %; Neutrophils # (auto) 3.95 K/uL (1.4-6.5); Neutrophils % (auto) 80.5 %; Platelet Count 90 K/uL (130-400); Platelet Estimate Decreased (Normal); Polychromasia 1+; RDW Coefficient of Variation 14.7 % (11.5-14.5); RDW Standard Deviation 55.3 fL (36.4-46.3); Red Blood Count 2.53 M/uL (3.93-5.22); Toxic Vacuolation 1+; White Blood Count 4.91 K/ul (4.8-10.8)
[2021-11-08 09:10] LABS: Albumin Globulin Ratio 1.3 (0.9-2); Albumin Level 2.8 gm/dl (3.4-5.0); BUN Creatinine Ratio 16.7 (10-20); Bilirubin,Total 0.8 mg/dl (0.2-1.0); Calcium 7.6 mg/dl (8.5-10.1); Creatinine Clr Calc Pharmacy 39.6 ml/min; Est GFR (African American) 75.5 ml/min; Est GFR (Non-African American) 65.2 ml/min; Globulin 2.2 gm/dl (2.5-4.0); Magnesium 1.7 mg/dl (1.7-2.4); Potassium 3.6 mmol/L (3.5-5.1)
[2021-11-08] MEDS: ONDANSETRON INJ 2 MG/ML 2 ML VIAL IV PRN (10:35)
[2021-11-08] MEDS: EZETIMIBE 10 MG TABLET PO SCH (11:08)
[2021-11-08] MEDS: FERROUS SULFATE 325 MG TAB PO SCH ×2 (11:08→20:16)
[2021-11-08] MEDS: FOLIC ACID 1 MG TAB PO SCH (11:08)
[2021-11-08] MEDS: CYANOCOBALAMIN (B-12) 500 MCG TABLET PO SCH (11:08)
[2021-11-08] MEDS: METOPROLOL SUCC 50MG EXT REL TAB PO SCH ×2 (11:09→20:16)
[2021-11-08] MEDS: ADVANCED PROBIOTIC 1250 MG CAPSULE PO SCH (11:09)
[2021-11-08] MEDS: PANTOprazole 40 MG TAB PO SCH (11:09)
[2021-11-08] MEDS: predniSONE 5 MG TAB PO SCH (11:09)
[2021-11-08] MEDS: LEFLUNOMIDE 10 MG TAB PO SCH (15:07)
--- NOTE | 2021-11-08 15:30 | Consultation Report ---
DATE OF CONSULTATION: 11/08/2021. HISTORY OF PRESENT ILLNESS: This is an 80-year-old female seen at the request of Dr. Maloney for re current right knee fluid collection/abscess with ulceration over the medial knee. The patient is wel l known to our service and then prior evacuation of a traumatic hematoma that she sustained in 2. She had drains pulled and she was continued with her rehabilitation course at [facility]. She complains of left knee redness and the nursing staff had concern for infection. She denies any sign ificant knee pain and difficulty walking. No other complaints, no other fevers, chills, or other ass ociated injuries. CT scan was performed by the ER physician that was read as fluid collection, possi ble abscess, extraarticular measuring 4.5 x 5.0 x 1.1 cm. Concerning for abscess. Patient has demen tia and all history obtained from the chart and with discussion with her eldest son, Martín. PAST MEDICAL HISTORY: Acute EKG changes, altered mental status, anemia, C. difficile colitis, CAD, c hronic anticoagulation, CKD, coagulopathy, confusion, diverticular disease, elevated troponin, falls, GERD, hyperlipidemia, hypertension, hypokalemia, lumbar disk herniation with radiculopathy, nonsusta ined ventricular tachycardia, obstructive sleep apnea with O2 2 liters, rheumatoid arthritis, restles s leg syndrome, severe aortic stenosis, thrombocytopenia. PAST SURGICAL HISTORY: Colonoscopy, left eye surgery, carpal tunnel on the left, EGD, artery stent 1 05/19/2019, lumbar fusion, tooth extraction, left total knee replacement performed by Dr. Veloz in 2 006, CHANNING-BSO, transcatheter aortic valve replacement and prior left medial knee evacuation of hematom a with placement of drains. ALLERGIES: BACLOFEN, PENICILLIN WITH MILD RASH. SULFA WITH MILD HEADACHE. HOME MEDICATIONS: Please note the extensive list in the medical record. SOCIAL HISTORY: Denies tobacco, alcohol or drug use. She is a . She lives in [facility]. She is retired. PHYSICAL EXAMINATION: This is an 80-year-old female, lying supine in hospital room bed. She has dem entia and does not answer questions appropriately. She moves all 4 limbs spontaneously. She had no complaints of any knee pain. She is resting in a side mayo position with her knee flexed approximate ly 90 degrees. She easily extends the knee to 0 degrees. Knee is stable. There is a mild effusion in the left knee. However, there appears to be a palpable fluid collection along the medial knee, wh ich appears to be extraarticular. There is some local erythema, swelling with mild tenderness to pal pation of the medial knee. There also noted to be 2 ulcerations one measuring 1.0 x 1.0 x 0.6 cm and the other one is slightly more proximal 1.5 x 1.5 x 0.7 cm. Ulcerations includes skin down to the le mauricio of the subcutaneous fat. The dorsalis pedis and posterior tibial pulses are palpable. Feet are warm. The intra-articular knee appears benign. Radiographs and CT scan reviewed demonstrating a fluid collection along the medial aspect of the knee appears to be extraarticular. There is a slight amount of fluid intraarticular; however, there is n o communication. Knee components are stable, cemented and intact. No evidence of lucency or looseni ng. IMPRESSION: 1. Left medial knee abscess versus seroma. 2. Medial knee ulcers x2 locations (1.0 x 1.0 x 0.6 cm) (1.5 x 1.5 x 0.7 cm). 3. Cellulitis, left leg. RECOMMENDATION: After discussion with the patient's power of medicine assistant, her son, Martín; patient will be scheduled for incision and drainage fluid collection left medial knee whether it be a seroma or ab scess will be cultured at that time. It will be evacuated and then irrigation and debridement will b e performed of the medial knee ulcers as mentioned sizes noted above. N.p.o. after midnight. Hold a nticoagulants. Thank you for the opportunity to consult in care of this patient. Job ID: [id number]
[2021-11-08] MEDS ORDERED: KETOROLAC TROMETHAMINE 15 MG/ML VIAL IV ONE (20:04)
[2021-11-08] MEDS ORDERED: ACETAMINOPHEN 1,000 MG/100 ML VIAL IV PRN (20:09)
[2021-11-08] MEDS: DAPTOmycin 200 MG in SYRINGE 0 ML IV SCH (20:15)
[2021-11-08] MEDS: amLODIPine BESYLATE 5 MG TAB PO SCH (20:16)
[2021-11-08] MEDS: MIRTAZAPINE TAB 15 MG TAB PO SCH (20:16)
--- NOTE | 2021-11-08 23:57 | Hospitalist Progress Note ---
Date of Service November 08, 2021 Assessment & Plan (1) Cellulitis of left knee: (2) Cutaneous abscess of left knee: (3) CAD (coronary artery disease): (4) S/P TAVR (transcatheter aortic valve replacement): (5) Rheumatoid arthritis: (6) Chronic anemia: (7) Obstructive sleep apnea: (8) Hx pulmonary embolism: Plan This is an 80-year-old female who has a significant past medical history of CAD status post TYLER x2 to mid LAD 03/18/2020, history of aortic stenosis status post TAVR March 2021, HTN, HLD, INA on 2 L of O2 at at bedtime, rheumatoid arthritis on leflunomide and chronic prednisone therapy, chronic anemia, CKD stage III, history of PE/DVT in 2017 anticoagulated on warfarin who presents to ED 2/2 worsening L knee redness and concern for infection. Cellulitis of left knee Abscess of left knee Left knee has been becoming increasingly more red, swollen and warm. Patient does not meet criteria for SIRS or sepsis. She had left knee hematoma drained back in August. CT left knee showed Evidence for soft tissue ulceration with underlying deep subcutaneous fluid collection most characteristic of an abscess. small to moderate-sized joint effusion. Continue IV abx cefepime and daptomycin Ortho on board plan for incision and drainage fluid collection left medial knee whether it be a seroma or abscess will be cultured at that time. Coumadin has been on hold with INR 1.3 today will make NPO after midnight Will follow culture CAD status post TYLER 03/18/2020 History of TAVR in March 2021 Chronic diastolic heart failure HTN HLD Patient's volume status compensated She denies chest pain or shortness of breath EKG without change Holding Plavix in setting of likely procedure, resume when okay with Ortho Holding statin in setting of daptomycin, resume when able Continue metoprolol and amlodipine Rheumatoid arthritis On chronic prednisone therapy as well as leflunomide Previous admissions and discharge summaries reflect patient taking methotrexate Methotrexate is currently not on patient's med reconciliation from [facility] and this was confirmed with facility per external pharmacy looks like last prescribed 10/17/21, therefore not sure where it may have dropped off but may need to be determined if pt needs to be on this medication or not for her RA INA on 2L O2 at HS Hypothyroidism continue levothyroxine Chronic Anemia hgb stable, baseline ~ 10 CKD -3 renal fxn stable avoid nephrotoxic agents Hx of PE/DVT in 2017 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 Vitamin K given on admission INR 1.3 today Continue holding coumadin for ortho pricedure in am Dispo: medical, likely to return back to [facility] FULL CODE PCP: Shereen Admission and Anticipated Discharge Date Admission Date: November 07, 2021 Subjective Pt was seen and examined for left knee pain Confused lying in bed with no acute distress Pt seems to have pain in left knee pain because when i touched her knee she showed discomfort Ortho was able to talk to son and consent obtained for I&D tomorrow Review of Systems Review of Systems: All systems reviewed & are unremarkable except as noted in Subjective Physical Exam Physical Exam: General- No acute distress Head- atraumatic Eyes- PERRL, EOMI, ENT- oropharynx clear Neck- supple, no JVD Lungs- clear to auscultation Heart- regular rhythm; no murmur Abdomen- normal bowel sounds, soft, nontender Extremities- no calf tenderness, +left knee pain and mild swelling Neuro- alert, awake, PERRL, EOMI; no facial palsy; no dysarthria Skin- warm & dry Results & Data Results & Data ([facility]) Vital Signs (Past 12 Hours) Vital Signs Temp Pulse Resp BP Pulse Ox O2 Del Method 11/08/21 16:03 36.7 C 109 H 18 126/71 96 Room Air (1) Rheumatoid arthritis Rheumatoid arthritis location: unspecified site Rheumatoid factor presence: unspecified presence Qualified Code(s): M06.9 - Rheumatoid arthritis, unspecified
[2021-11-09] MEDS: LEVOTHYROXINE SODIUM 50 MCG TABLET PO SCH (05:13)
[2021-11-09] MEDS: CEFEPIME 2,000 MG in SYRINGE 0 ML IV SCH ×2 (07:51→20:16)
[2021-11-09] MEDS ORDERED: SODIUM CHLORIDE 0.9% 500 ML IV SCH (08:15)
--- NOTE | 2021-11-09 08:53 | Anesthesiology Consultation ---
Date of Service November 09, 2021 Assessment & Plan (1) Encounter for pre-operative examination: History Surgery Operation Date: 11/09/21 09:30 Proposed Procedures p Incision and Drainage Left Medial Knee, Debridement of Left Medial Knee Ulcers(Left) - Fab Aldana DO Height/Weight Height: 5 ft 1 in Weight: 51.2 kg Allergies Allergy/AdvReac Type Severity Reaction Status Date / Time baclofen Allergy Mild DIZZY Verified 11/07/21 18:53 Penicillins Allergy Mild RASH Verified 11/07/21 18:53 Sulfa (Sulfonamide Allergy Mild HEADACHE Verified 11/07/21 18:53 Antibiotics) Medications Home Medications Medication Instructions Recorded Confirmed Last Taken atorvastatin 40 mg tablet 40 mg PO QAM 07/01/18 11/07/21 09/03/21 08:00 metoprolol succinate 50 mg 50 mg PO BID 07/01/18 11/07/21 09/03/21 08:00 tablet,extended release 24 hr folic acid 1 mg tablet 2 mg PO QA 10/17/19 11/07/21 09/03/21 08:00 clopidogrel 75 mg tablet 75 mg PO QAM 05/09/20 11/07/21 09/03/21 08:00 ezetimibe 10 mg tablet 10 mg PO QAM 04/21/21 11/07/21 09/03/21 08:00 pantoprazole 40 mg tablet,delayed 40 mg PO QA 04/21/21 11/07/21 09/03/21 07:30 release ferrous sulfate 325 mg (65 mg 325 mg PO BID 08/21/21 11/07/21 09/03/21 08:00 iron) tablet leflunomide 20 mg tablet 20 mg PO DAILY@1200 08/21/21 11/07/21 09/03/21 08:00 levothyroxine 50 mcg tablet 50 mcg PO QAM 09/03/21 11/07/21 09/03/21 08:00 amlodipine 5 mg tablet (Norvasc) 5 mg PO HS #30 tabs 10/14/21 11/07/21 09/03/21 08:00 acetaminophen 325 mg tablet 650 mg PO Q4H PRN pain #30 tabs 10/30/21 11/07/21 Unknown mirtazapine 15 mg tablet 15 mg PO HS #30 tabs 10/30/21 11/07/21 Unknown tramadol 50 mg tablet 25 mg PO Q6H PRN pain (scale score 10/30/21 11/07/21 Unknown 7-10) #20 tabs warfarin 2.5 mg tablet 1.25 mg PO TuTh@1600 #30 tabs 10/30/21 11/07/21 Unknown warfarin 2.5 mg tablet (Jantoven) 2.5 mg PO SuMoWeFrSa@1600 #30 tabs 10/30/21 11/07/21 Unknown cyanocobalamin (vitamin B-12) 500 500 mcg PO DAILY 11/07/21 11/07/21 Unknown mcg tablet prednisone 5 mg tablet 5 mg PO DAILY 11/07/21 11/07/21 Unknown Active Medications Generic Name Dose Route Start Last Admin Trade Name Freq PRN Reason Stop Dose Admin Amlodipine Besylate 5 mg 11/07/21 22:06 11/08/21 20:16 Amlodipine Besylate 5 Mg Tab PO 12/07/21 22:05 Not Given HS STEPHANIE Cyanocobalamin 500 mcg 11/08/21 09:00 11/08/21 11:08 Cyanocobalamin (B-12) 500 Mcg Tablet PO 12/08/21 08:59 Not Given DAILY STEPHANIE Ezetimibe 10 mg 11/08/21 09:00 11/08/21 11:08 Ezetimibe 10 Mg Tablet PO 12/08/21 08:59 Not Given QAM STEPHANIE Ferrous Sulfate 325 mg 11/07/21 22:06 11/08/21 20:16 Ferrous Sulfate 325 Mg Tab PO 12/07/21 22:05 Not Given BID STEPHANIE Folic Acid 2 mg 11/08/21 09:00 11/08/21 11:08 Folic Acid 1 Mg Tab PO 12/08/21 08:59 Not Given QAM STEPHANIE Daptomycin 200 mg/ Syringe 4 mls @ 2 mls/min 11/08/21 20:00 11/08/21 20:15 IV 11/15/21 19:59 2 mls/min Q24H STEPHANIE Administration Protocol Cefepime HCl 2,000 mg/ Syringe 20 mls @ 5 mls/min 11/08/21 20:00 11/09/21 07:51 IV 11/15/21 00:00 5 mls/min Q12H STEPHANIE Administration Protocol Sodium Chloride 500 mls @ 50 mls/hr 11/09/21 08:15 11/09/21 08:35 Nss IV 11/09/21 18:14 50 mls/hr .Q10H STEPHANIE Administration Lactobacillus Acidophilus 2 cap 11/08/21 09:00 11/08/21 11:09 Advanced Probiotic 1250 Mg Capsule PO 12/08/21 08:59 Not Given DAILY STEPHANIE Leflunomide 20 mg 11/08/21 12:00 11/08/21 15:07 Leflunomide 10 Mg Tab PO 12/08/21 11:59 Not Given DAILY@1200 [facility] Levothyroxine Sodium 50 mcg 11/08/21 06:30 11/09/21 05:13 Levothyroxine Sodium 50 Mcg Tablet PO 12/08/21 06:29 Not Given DAILY@0630 [facility] Metoprolol Succinate 50 mg 11/07/21 22:06 11/08/21 20:16 Metoprolol Succ 50mg Ext Rel Tab PO 12/07/21 22:05 Not Given BID STEPHANIE Mirtazapine 15 mg 11/07/21 22:06 11/08/21 20:16 Mirtazapine Tab 15 Mg Tab PO 12/07/21 22:05 Not Given HS [facility] Ondansetron HCl 4 mg 11/07/21 22:06 11/08/21 10:35 Ondansetron Inj 2 Mg/Ml 2 Ml Vial IV 12/07/21 22:05 4 mg Q6H PRN Administration Nausea Pantoprazole Sodium 40 mg 11/08/21 09:00 11/08/21 11:09 Pantoprazole 40 Mg Tab PO 12/08/21 08:59 Not Given QAM [facility] Prednisone 5 mg 11/08/21 09:00 11/08/21 11:09 Prednisone 5 Mg Tab PO 12/08/21 08:59 Not Given DAILY [facility] Tramadol HCl 25 mg 11/07/21 22:06 11/08/21 04:18 Tramadol Hcl 50 Mg Tablet PO 12/07/21 22:05 25 mg Q6H PRN Administration pain (scale score 7-10) Past Medical History Medical History Acute electrocardiogram changes Altered mental status Anemia C. difficile colitis CAD (coronary artery disease) Chronic anticoagulation CKD (chronic kidney disease) stage 3, GFR 30-59 ml/min Coagulopathy Confusion Diverticular disease hx diverticulitis Elevated troponin Fall GERD (gastroesophageal reflux disease) HLD (hyperlipidemia) HTN (hypertension) Hypokalemia Lumbar disc herniation with radiculopathy Lumbar radiculopathy NSVT (nonsustained ventricular tachycardia) Obstructive sleep apnea WEARS O2 AT 2L AT HS On home oxygen therapy 2L AT HS Rheumatoid arthritis RLS (restless legs syndrome) Severe aortic stenosis prior to TAVR SVT (supraventricular tachycardia) Thrombocytopenia Thrombocytopenia Exercise / Class Metabolic Activity II 4-5 Yardwork/Stairs/Walk up hill Past Family History Family History Other Heart disease No family history of adverse response to anesthesia Rheumatoid arthritis Past Surgical History Surgical History H/O colonoscopy H/O eye surgery LEFT History of carpal tunnel surgery RT/LEFT History of esophagogastroduodenoscopy (EGD) History of heart artery stent 03/18/2020-TYLER x 2 to LAD History of lumbar fusion History of tooth extraction History of total knee replacement RT/LEFT S/P CHANNING-BSO S/P TAVR (transcatheter aortic valve replacement) Past Anesthesia History No Hx of Anesthesia Complications History of PONV No Hx of PONV and History of PONV Social History Smoking Status: Never smoker tobacco type: cigarettes Do You Dip or Chew Tobacco: No Hx Alcohol Use: No Alcohol type: wine alcohol intake frequency: holidays/special occasions only Hx Substance Use: No substance use type: does not use Physical Exam Vital Signs Last Vital Signs Temp 36.9 C 11/09/21 07:41 Pulse 55 L 11/09/21 07:41 Resp 20 11/09/21 07:41 BP 148/75 H 11/09/21 07:41 Pulse Ox 98 11/09/21 07:41 O2 Del Method 11/09/21 07:41 O2 Flow Rate 2 11/08/21 11:45 Testing Laboratory Results 11/08/21 07:51 11/08/21 07:51 PT 13.2 Seconds (9.0-12.0) H 11/08/21 07:51 INR 1.3 (0.9-1.1) H 11/08/21 07:51 APTT 34.5 Seconds (21.0-31.0) H 11/07/21 16:40 Electrocardiogram Date: 11/07/21 Sinus tachycardia with Premature supraventricular complexes and with frequent Premature ventricular complexes Left axis deviation Left ventricular hypertrophy with QRS widening and repolarization abnormality Poor R wave progression, consider anterior MO vs. lead placement vs. LVH Non-specific intra-ventricular conduction block Abnormal ECG When compared with ECG of 26-OCT-2021 16:02, Premature supraventricular complexes are now Present Non-specific intra-ventricular conduction block has replaced Left bundle branch block Echocardiogram Date: 10/09/21 EF: >70% s/p TAVR
[2021-11-09 09:42] LABS: Hematocrit (blood only) 29.1 % (34.1-44.9); Hemoglobin 9.6 g/dl (12.0-16.0); Mean Platelet Volume 10.1 fL (9.4-12.3); Platelet Count 92 K/uL (130-400); White Blood Count 4.85 K/ul (4.8-10.8)
[2021-11-09 09:57] LABS: INR 1.1 (0.9-1.1)
--- NOTE | 2021-11-09 09:59 | Hospitalist Progress Note ---
Date of Service November 09, 2021 Assessment & Plan (1) Cellulitis of left knee: (2) Cutaneous abscess of left knee: (3) CAD (coronary artery disease): (4) S/P TAVR (transcatheter aortic valve replacement): (5) Rheumatoid arthritis: (6) Chronic anemia: (7) Obstructive sleep apnea: (8) Hx pulmonary embolism: Plan This is an 80-year-old female who has a significant past medical history of CAD status post TYLER x2 to mid LAD 03/18/2020, history of aortic stenosis status post TAVR March 2021, HTN, HLD, INA on 2 L of O2 at at bedtime, rheumatoid arthritis on leflunomide and chronic prednisone therapy, chronic anemia, CKD stage III, history of PE/DVT in 2017 anticoagulated on warfarin who presents to ED 2/2 worsening L knee redness and concern for infection. Cellulitis of left knee Abscess of left knee Left knee has been becoming increasingly more red, swollen and warm. Patient does not meet criteria for SIRS or sepsis. She had left knee hematoma drained back in August. CT left knee showed Evidence for soft tissue ulceration with underlying deep subcutaneous fluid collection most characteristic of an abscess. small to moderate-sized joint effusion. Continue IV abx cefepime and daptomycin Ortho on board plan for incision and drainage fluid collection left medial knee whether it be a seroma or abscess will be cultured at that time. Coumadin has been on hold with INR 1.1 today Keep NPO for now Will follow blood cx and I&D culture CAD status post TLYER 03/18/2020 History of TAVR in March 2021 Chronic diastolic heart failure HTN HLD Patient's volume status compensated She denies chest pain or shortness of breath EKG without change Holding Plavix in setting of likely procedure, resume when okay with Ortho Holding statin in setting of daptomycin, resume when able pt refused metoprolol and amlodipine will consider IV lopressor low dose if she continues to refuse Oral metoprolol Rheumatoid arthritis On chronic prednisone therapy as well as leflunomide Previous admissions and discharge summaries reflect patient taking methotrexate Methotrexate is currently not on patient's med reconciliation from [facility] and this was confirmed with facility per external pharmacy looks like last prescribed 10/17/21, therefore not sure where it may have dropped off but may need to be determined if pt needs to be on this medication or not for her RA Will reach her rheumatology on Wednesday to confirm if pt is taking the metrotrexate Pt refused her Prednisone yesterday and today. Ok with surgery to give a stress dose steroid INA on 2L O2 at HS Hypothyroidism continue levothyroxine Chronic Anemia hgb dropped to 8. 5 not sure if dilutional hgb today 9.6 today with baseline ~ 10 Continue monitor H/H closely Stable CKD -3 Hgb 0.8 avoid nephrotoxic agents Stable Hx of PE/DVT in 2017 on longterm warfarin therapy Vitamin K given on admission INR 1.1 today Continue holding coumadin for ortho procedure today Dispo: medical, likely to return back to [facility] FULL CODE PCP: Shereen Admission and Anticipated Discharge Date Admission Date: November 07, 2021 Subjective Pt was seen and examined for left knee pain Lying in bed with no acute distress getting lab drawn Pt is more awake today but she is very tremulous this morning She refused her medication yesterday Ortho plan to take her to OR this morning Review of Systems Review of Systems: All systems reviewed & are unremarkable except as noted in Subjective Physical Exam Physical Exam: General- No acute distress Head- atraumatic Eyes- PERRL, EOMI, ENT- oropharynx clear Neck- supple, no JVD Lungs- clear to auscultation Heart- regular rhythm; no murmur Abdomen- normal bowel sounds, soft, nontender Extremities- no calf tenderness, +left knee pain and mild swelling Neuro- alert, awake, PERRL, EOMI; no facial palsy; no dysarthria, +tremor Skin- warm & dry Results & Data Results & Data ([facility]) Vital Signs (Past 12 Hours) Vital Signs Temp Pulse Resp BP Pulse Ox O2 Del Method 11/09/21 07:41 36.9 C 55 L 20 148/75 H 98 Room Air (1) Rheumatoid arthritis Rheumatoid arthritis location: unspecified site Rheumatoid factor presence: unspecified presence Qualified Code(s): M06.9 - Rheumatoid arthritis, unspecified
[2021-11-09 10:04] LABS: Mean Corpuscular Hemoglobin 33.9 pg (25.0-34.0); Mean Corpuscular Volume 102.8 fL (80.0-100.0); RDW Coefficient of Variation 14.7 % (11.5-14.5); Red Blood Count 2.83 M/uL (3.93-5.22)
[2021-11-09] MEDS ORDERED: ONDANSETRON INJ 2 MG/ML 2 ML VIAL IV PRN ×2 (10:04→13:47)
[2021-11-09] MEDS ORDERED: ePHEDrine sulfate 50 MG/ML AMP IV PRN (10:04)
[2021-11-09] MEDS ORDERED: ATROPINE SULFATE 0.1 MG/ML 10ML SYR IV PRN (10:04)
[2021-11-09 10:06] LABS: BUN Creatinine Ratio 26.3 (10-20); Calcium 8.1 mg/dl (8.5-10.1); Creatinine Clr Calc Pharmacy 41.6 ml/min; Est GFR (African American) 80.1 ml/min; Est GFR (Non-African American) 69.1 ml/min; Potassium 3.6 mmol/L (3.5-5.1)
--- NOTE | 2021-11-09 10:14 | History & Physical Bridge Note ---
Date of Service November 09, 2021 History & Physical Bridge Note I have examined the patient, reviewed the History & Physical and in the interval since the performance of the History & Physical I have noted the following changes of clinical significance: no changes noted
[2021-11-09] MEDS ORDERED: fentaNYL citrate 100 MCG/2 ML VIAL ONE ×2 (10:24→11:57)
[2021-11-09] MEDS ORDERED: ceFAZolin 330 MG/ML 1 GM VIAL ONE (10:48)
[2021-11-09] MEDS: EZETIMIBE 10 MG TABLET PO SCH (10:55)
[2021-11-09] MEDS: CYANOCOBALAMIN (B-12) 500 MCG TABLET PO SCH (10:55)
[2021-11-09] MEDS: FERROUS SULFATE 325 MG TAB PO SCH ×2 (10:55→20:20)
[2021-11-09] MEDS: FOLIC ACID 1 MG TAB PO SCH (10:55)
[2021-11-09] MEDS: ADVANCED PROBIOTIC 1250 MG CAPSULE PO SCH (10:56)
[2021-11-09] MEDS: METOPROLOL SUCC 50MG EXT REL TAB PO SCH ×2 (10:56→20:20)
[2021-11-09] MEDS: PANTOprazole 40 MG TAB PO SCH (10:56)
[2021-11-09] MEDS: predniSONE 5 MG TAB PO SCH (10:56)
[2021-11-09] MEDS ORDERED: PROPOFOL IV EMULSION 10 MG/ML 20 ML VIAL IV ONE (11:19)
[2021-11-09] MEDS ORDERED: HYDROCORTISONE SOD SUCCINATE 100 MG/2 ML VIAL ONE (11:20)
[2021-11-09] MEDS ORDERED: PHENYLEPHRINE HCL 10 MG/ML VIAL ONE (11:20)
[2021-11-09] MEDS ORDERED: LIDOCAINE 2% 20 MG/ML 5 ML SYR IV ONE (11:20)
[2021-11-09] MEDS ORDERED: ONDANSETRON INJ 2 MG/ML 2 ML VIAL ONE (11:20)
[2021-11-09] MEDS: fentaNYL citrate 100 MCG/2 ML VIAL IV PRN ×3 (12:08→12:26)
[2021-11-09] MEDS ORDERED: METOPROLOL TARTRATE 1 MG/ML VIAL IV ONE (12:33)
[2021-11-09] MEDS ORDERED: METOPROLOL TARTRATE 1 MG/ML VIAL IV STA (12:34)
--- NOTE | 2021-11-09 12:43 | Post Operative Brief Note ---
Immediate Post Op Note v1 Date of Surgery November 09, 2021 Pre & Post Diagnosis Operation Date: 11/09/21 09:30 Pre-Op Diagnosis: Left knee medial abscess, medial knee ulcers x2 (1.2 cm x 1.2 cm x 0.6 cm) (1.9 cm x 1.9 cm x 0.8 cm), left knee cellulitis Post-Op Diagnosis: Left knee medial abscess, medial knee ulcers x2 (1.2 cm x 1.2 cm x 0.6 cm) (1.9 cm x 1.9 cm x 0.8 cm), left knee cellulitis I identified the patient and participated in the time-out.: Yes Procedure Operation Date: 11/09/21 09:30 Actual Procedures p Incision and Drainage Left Medial Knee Abscess, Debridement of Left Medial Knee Ulcers x2 (1.2 cm x 1.2 cm x 0.6 cm) (1.9 cm x 1.9 cm x 0.8 cm) including skin, dermis, subcutaneous tissue and fascia (Left) - Fab Aldana DO Surgeon Fab Aldana DO Religious Educator Dickson Diaz PA-C Estimated Blood Loss 40 Findings Consistent with Post-Op Diagnosis Specimens Aerobic, anaerobic, gram stain left knee medial abscess Drains Hemovac Drain Anesthesia Type General Complications none Disposition Accompanied Patient To Recovery: Yes
--- NOTE | 2021-11-09 13:04 | Anesthesiology Progress Note ---
Date of Service November 09, 2021 Anesthesia Post Procedure Vital Signs Vital Signs: Temp Pulse Pulse Pulse Resp BP BP 11/09/21 12:50 95 H 22 122/48 L 11/09/21 12:30 36.6 C 119 H 21 112/68 11/09/21 12:20 117 H 15 129/79 11/09/21 12:10 108 H 20 123/73 11/09/21 12:37 120 H 112/68 11/09/21 12:40 90 22 112/85 11/09/21 12:01 36.6 C 114 H 131/88 11/09/21 07:41 36.9 C 55 L 20 11/08/21 19:45 11/08/21 16:03 36.7 C 109 H 18 126/71 BP Pulse Ox O2 Del Method O2 Flow Rate 11/09/21 12:50 99 Room Air 11/09/21 12:30 100 Room Air 11/09/21 12:20 98 Nasal Cannula 4 11/09/21 12:10 98 Oxymask 6 11/09/21 12:37 11/09/21 12:40 99 Room Air 11/09/21 12:01 98 Oxymask 6 11/09/21 07:41 148/75 H 98 Room Air 11/08/21 19:45 Room Air 11/08/21 16:03 96 Room Air Pain Intensity Pelvic: Pain Intensity: 2 Transfer of Care Handoff Completed per policy Notes Mental Status: alert / awake / arousable and participated in evaluation Patient Amnestic to Procedure: Yes Nausea / Vomiting: adequately controlled Pain: adequately controlled Airway Patency, RR, SpO2: stable & adequate BP & HR: stable & adequate Hydration State: stable & adequate Anesthetic Complications: no major complications apparent
[2021-11-09] MEDS ORDERED: NALOXONE HCL 0.4 MG/1 ML VIAL/CARP IV PRN (13:47)
[2021-11-09] MEDS ORDERED: METOCLOPRAMIDE HCL INJ 5 MG/ML 2 ML VIAL IV PRN (13:47)
[2021-11-09] MEDS ORDERED: bisacodyL 10 MG SUPP PR PRN (13:47)
[2021-11-09] MEDS ORDERED: MAGNESIUM HYDROXIDE SUSP 30 ML UDC PO PRN (13:47)
[2021-11-09] MEDS: LEFLUNOMIDE 10 MG TAB PO SCH (14:05)
[2021-11-09] MEDS: SODIUM CHLORIDE 0.9% 1000ML 1,000 ML IV SCH ×2 (14:05→20:31)
--- NOTE | 2021-11-09 15:42 | Operative Report (OR) ---
DATE OF PROCEDURE: 11/09/2021. PREOPERATIVE DIAGNOSES: 1. Left knee medial abscess. 2. Left knee medial ulcers x2 (1.2 cm x 1.2 cm x 0.6 cm) (1.9 cm x 1.9 cm x 0.8 cm). 3. Left knee cellulitis. POSTOPERATIVE DIAGNOSES: 1. Left knee medial abscess. 2. Left knee medial ulcers x2 (1.2 cm x 1.2 cm x 0.6 cm) (1.9 cm x 1.9 cm x 0.8 cm). 3. Left knee cellulitis. PROCEDURE: 1. Incision and drainage, left knee medial abscess. 2. Debridement of left knee medial ulcer 1.2 cm x 1.2 cm x 0.6 cm including skin, dermis, subcutaneo us tissue, and fascia. 3. Irrigation and debridement of left medial knee ulcer measuring 1.9 cm x 1.9 cm x 0.8 cm including skin, dermis, subcutaneous tissue, and fascia. SURGEON: Fab Aldana DO. FIRE AND EXPLOSION INVESTIGATOR: Dickson Diaz PA-C who was present for patient positioning, sterile prep and drape, manag ement of retractors and instruments. He was present through the critical portions of the case includi ng wound closure, application of sterile dressing and transport of the patient to recovery. ANESTHESIA: General. SPECIMENS: Aerobic, anaerobic, Gram stain, medial knee abscess. DRAINS: Hemovac x2. COMPLICATIONS: None. BLOOD LOSS: 40 mL. PERTINENT HISTORY: This is an 80-year-old female who had previously sustained injury to her left kne e where she fell and had a large severe hematoma formation along the medial knee. She had incision a nd drainage of the hematoma in 08/2021 that I had performed for the patient. The patient with longer than normal recovery course; however, then at [facility] started having increased symptoms of sophia n and swelling. Nursing staff was concerned because the patient also had ulcerations as mentioned ab ove. The patient was then transported to [facility]. She was evaluated. Question regarding abscess was entered with CT scan, which documented a proof of abscess. There was also not ed to be no communication between the abscess and the intra-articular knee replacement, which was not ed to be stable and intact. Based upon this patient was then scheduled for surgery as indicated. All potential risks, benefits, complications, alternatives, rehab, potential for incomplete relief of symptoms, need for further surgery, DVT, PE, , persistent pain, swelling, scarring, weakness, n eed for further surgery was discussed with the patient and her power of assistant city attorney, her son, Martín. Th e patient was then scheduled for surgery as indicated. After consent was obtained from her power of assistant city attorney, her son, Martín, with oversight by the nurse present. DESCRIPTION OF PROCEDURE: The patient was taken to the operative suite and placed supine on the oper ating table. After review of consent and identification of proper site, the patient was anesthetized , LMA was placed. Tourniquet was placed high on the left lower extremity over cast padding. Left lo wer extremity was then sterilely prepped and draped in the usual fashion, elevated, and tourniquet in flated to 350 mmHg. There was no tourniquet used. There was no exsanguination performed due to the nature of the infection. Next, after surgical timeout was performed, a 10 blade scalpel was then used to make an incision at [facility] the proximal and distal ulcers measured 1.2 cm x 1.2 cm x 0.6 cm and the second ulcer measuring 1 .9 cm x 1.9 cm x 0.8 cm. First incision was made through the more proximal ulcer noted to be a signi ficant amount of abscess fluid, which was then cultured with a culturette for aerobic, anaerobic and Gram stain analysis. Next, debridement was performed of the ulcer proximal larger one including skin, dermis, subcutaneous tissue, and fascia. The 10 blade was then used to revise the edges of the ulcers to remove any necr otic-appearing tissue. Next, similarly, the smaller ulcer more distally 1.2 cm x 1.2 cm x 0.6 cm was then sharply debrided with the 10 blade scalpel including skin, dermis, subcutaneous tissue down to the level of the fascia. The edges were freshened and any necrotic tissue was then sharply excised i n an ellipse fashion so it would be easier to close later in the case. Next, blunt finger dissection was performed down to the level of the abscess to define its edges and to define its floor. There w as no penetration into the knee joint capsule. Next, a large curette was then used to curettage the wetzel of the abscess, any necrotic loosened tiss ue was then sharply excised with a 10 blade scalpel and a Azerbaijani forceps. Electrocautery was used t o cauterize any small bleeding vessels and, after all grossly necrotic debris was removed from the ab scess site, pulsatile lavage, 6 liters was then used to lavage the abscess and ulcer sites with a lav age solution with Ancef. After this was completed, top gloves were changed, top sheet was changed, a nd the 10-Turkish Hemovac drains x2 were placed deep in the abscess pocket exiting through two separat e new puncture sites on the medial aspect more proximal knee. The previously noted ulcer sites, afte r complete debridement, were noted to have healthy appearing margins and these were reapproximated lo osely with interrupted 2-0 nylon sutures. A sterile compressive dressing was applied, overwrapped wi th a large Jaylen wrap. The tourniquet was released. The patient was awakened and taken to recovery in stable condition. Job ID: [id number]
--- NOTE | 2021-11-09 17:44 | XRay Report ---
XR chest 1V portable CLINICAL HISTORY: hypoxia. COMPARISON STUDY: 10/26/2021 TECHNIQUE: 1 view of the chest FINDINGS: Single frontal view of the chest demonstrates the cardiomediastinal silhouette to be within normal li mits. There is a decreased inspiratory effort with elevation of the hemidiaphragms and crowding of th e bronchovascular markings at the lung bases and centrally. The lungs are clear of alveolar opacities . There is no evidence for pleural effusion. There is no evidence for vascular congestion. There is n o acute osseous pathology. IMPRESSION: 1. . There is a decreased inspiratory effort with otherwise no acute chest disease. ACT 112: Negative or not required by law. Electronically signed by: Speedy Caicedo M.D. 11/09/2021 5:43 PM
[2021-11-09] MEDS ORDERED: POTASSIUM CHLORIDE / WTR 10 MEQ/100 ML PLCT IV ONE (17:45)
[2021-11-09] MEDS ORDERED: MAGNESIUM SULFATE / D5W 1 GM/100 ML BAG IV ONE (17:45)
[2021-11-09] MEDS: WARFARIN SOD 2.5 MG TAB PO SCH (18:36)
[2021-11-09] MEDS: DAPTOmycin 200 MG in SYRINGE 0 ML IV SCH (20:16)
[2021-11-09] MEDS: SENNA 8.6 MG TAB PO SCH (20:17)
[2021-11-09] MEDS: DOCUSATE SODIUM 100 MG CAP PO SCH (20:17)
[2021-11-09] MEDS: amLODIPine BESYLATE 5 MG TAB PO SCH (20:20)
[2021-11-09] MEDS: MIRTAZAPINE TAB 15 MG TAB PO SCH (20:20)
[2021-11-09] MEDS: METOPROLOL TARTRATE 1 MG/ML VIAL IV SCH (23:15)
[2021-11-10] MEDS ORDERED: MAGNESIUM SULFATE / D5W 1 GM/100 ML BAG IV ONE (00:39)
[2021-11-10] MEDS ORDERED: LACTATED RINGER'S 1,000 ML IV ONE (00:43)
--- NOTE | 2021-11-10 00:51 | Communication Note ---
Date of Service: November 10, 2021 1 AM Notified by RN of possible VT read on the monitor, possible torsades as per monitor probate clerk. Patient tremulous as per RN. No change in mentation since transferred to [facility] telemetry unit to facilitate IV beta danielito medications as per RN neck space neck space EKG as per my interpretation : Rate 100, NSR, LAD, LAFB, no ischemia, multiple artifacts 620AM Patient tremors worsening with patient decreased responsiveness; arched posture with stiffening as per RN. PPE : Lethargic Pallor Tachycardic Uncontrolled upper extremity tremors BSG 115 AP Altered mental status Uncontrolled upper extremity tremors ? New onset seizures Low-dose Ativan trial CT head EEG May need neurology input Will relay to AM provider.
[2021-11-10] MEDS: POTASSIUM CHLORIDE / WTR 10 MEQ/100 ML PLCT IV SCH ×3 (01:28→02:56)
[2021-11-10] MEDS ORDERED: LORazepam 0.25 MG in SYRINGE 0.125 ML IV ONE (06:45)
[2021-11-10 06:46] LABS: Basophils # (auto) 0.01 K/uL (0-0.2); Basophils % (auto) 0.2 %; Hematocrit (blood only) 23.2 % (34.1-44.9); Hemoglobin 7.8 g/dl (12.0-16.0); Immature Granulocytes # (auto) 0.03 K/uL (0.00-0.02); Immature Granulocytes % (auto) 0.7 %; Lymphocytes # (auto) 0.68 K/uL (1.2-3.4); Lymphocytes % (auto) 15.5 %; Mean Platelet Volume 10.7 fL (9.4-12.3); Monocytes # (auto) 0.56 K/uL (0.24-0.82); Monocytes % (auto) 12.8 %; Neutrophils % (auto) 70.8 %; Platelet Count 88 K/uL (130-400); White Blood Count 4.38 K/ul (4.8-10.8)
[2021-11-10 07:07] LABS: INR 1.2 (0.9-1.1); Prothrombin Time 12.4 Seconds (9.0-12.0)
[2021-11-10 07:14] LABS: BUN Creatinine Ratio 33.3 (10-20); Calcium 7.4 mg/dl (8.5-10.1); Creatinine Clr Calc Pharmacy 46.2 ml/min; Est GFR (Non-African American) 78.5 ml/min; Magnesium 2.6 mg/dl (1.7-2.4); Potassium 4.3 mmol/L (3.5-5.1)
[2021-11-10 07:23] LABS: Echinocytes 1+; Mean Corpuscular Hemoglobin 34.1 pg (25.0-34.0); Mean Corpuscular Hgb Conc 33.6 g/dL (32.0-36.0); Mean Corpuscular Volume 101.3 fL (80.0-100.0); Poikilocytosis Present; RDW Coefficient of Variation 14.2 % (11.5-14.5); RDW Standard Deviation 52.3 fL (36.4-46.3); Red Blood Count 2.29 M/uL (3.93-5.22)
[2021-11-10] MEDS: METOPROLOL TARTRATE 1 MG/ML VIAL IV SCH ×6 (07:31→21:44)
--- NOTE | 2021-11-10 08:18 | CT Scan Report ---
CT SCAN OF THE BRAIN WITHOUT IV CONTRAST CLINICAL HISTORY: Change in mental status. Possible seizure. COMPARISON STUDY: CT of the brain dated 10/26/2021. TECHNIQUE: Unenhanced axial CT scan of the brain is performed from the vertex to the skull base. A do se lowering technique was utilized adhering to the principles of ALARA. The Examination is compromise d by motion artifact. The patient was scanned 3 times in an effort to improve image quality. CT DOSE: 1305.31 mGy.cm FINDINGS: Brain parenchyma: There is age-related involutional change noting moderate subcortical and periventri cular microangiopathic disease. There is no hemorrhage, mass effect, or evidence of acute territorial ischemia by CT criteria. Chamberlain-white matter differentiation is preserved. No extra-axial fluid collec tion is seen. Ventricles, sulci, cisterns: Prominent secondary to involutional change. Intracranial vasculature: There is atherosclerotic calcification of the cavernous carotid and vertebr al arteries. Calvarium: Unremarkable. Sinuses and mastoids: The visualized paranasal sinuses are clear. The mastoid air cells are well pneu matized. Orbits: The bony orbits are grossly intact. There are bilateral ocular lens implants. IMPRESSION: There is no evidence of hemorrhage, mass effect, or acute territorial ischemia noting a s ignificantly motion compromised examination. ACT 112: Negative or not required by law. Electronically signed by: Vitaliy Tate M.D. 11/10/2021 8:16 AM
[2021-11-10] MEDS: CEFEPIME 2,000 MG in SYRINGE 0 ML IV SCH (08:57)
[2021-11-10] MEDS: LEVOTHYROXINE SODIUM 25 MCG in SYRINGE 0 ML IV SCH (08:57)
[2021-11-10] MEDS: EZETIMIBE 10 MG TABLET PO SCH (08:58)
[2021-11-10] MEDS: PANTOprazole 40 MG TAB PO SCH (08:58)
[2021-11-10] MEDS: ADVANCED PROBIOTIC 1250 MG CAPSULE PO SCH (08:58)
[2021-11-10] MEDS: FERROUS SULFATE 325 MG TAB PO SCH ×2 (08:58→19:42)
[2021-11-10] MEDS: predniSONE 5 MG TAB PO SCH (08:58)
[2021-11-10] MEDS: CYANOCOBALAMIN (B-12) 500 MCG TABLET PO SCH (08:58)
[2021-11-10] MEDS: FOLIC ACID 1 MG TAB PO SCH (08:58)
[2021-11-10] MEDS: MULTIVITAMIN TAB PO SCH (08:58)
[2021-11-10] MEDS: DOCUSATE SODIUM 100 MG CAP PO SCH ×2 (08:58→19:42)
--- NOTE | 2021-11-10 09:22 | Electrocardiogram Report ---
Test Reason : Blood Pressure : / mmHG Vent. Rate : 090 BPM Atrial Rate : 090 BPM P-R Int : 198 ms QRS Dur : 122 ms QT Int : 442 ms P-R-T Axes : 052 -17 -54 degrees QTc Int : 540 ms Normal sinus rhythm Left bundle branch block Abnormal ECG When compared with ECG of 07-NOV-2021 14:43, Premature ventricular complexes are no longer Present Premature supraventricular complexes are no longer Present Left bundle branch block is now Present Confirmed by Valentin Hinton ([id number]) on 11/10/2021 9:21:31 AM Referred By: [facility] Confirmed By:Valentin Hinton
--- NOTE | 2021-11-10 09:22 | Electrocardiogram Report ---
Test Reason : Blood Pressure : / mmHG Vent. Rate : 094 BPM Atrial Rate : 094 BPM P-R Int : 194 ms QRS Dur : 118 ms QT Int : 416 ms P-R-T Axes : 063 -17 070 degrees QTc Int : 520 ms Sinus rhythm with Premature supraventricular complexes Incomplete left bundle block Nonspecific T wave abnormality Prolonged QT Abnormal ECG When compared with ECG of 09-NOV-2021 18:02, (unconfirmed) Premature supraventricular complexes are now Present Confirmed by Valentin Hinton ([id number]) on 11/10/2021 9:21:54 AM Referred By: [facility] Confirmed By:Valentin Hinton
--- NOTE | 2021-11-10 09:28 | Electrocardiogram Report ---
Test Reason : Blood Pressure : / mmHG Vent. Rate : 099 BPM Atrial Rate : 099 BPM P-R Int : 190 ms QRS Dur : 116 ms QT Int : 376 ms P-R-T Axes : 075 -40 182 degrees QTc Int : 482 ms Poor data quality, interpretation may be adversely affected Sinus rhythm with Premature atrial complexes Left axis deviation Abnormal ECG When compared with ECG of 07-NOV-2021 14:43, Premature ventricular complexes are no longer Present Confirmed by Valentin Hinton ([id number]) on 11/10/2021 9:27:44 AM Referred By: [facility] Confirmed By:Valentin Hinton
[2021-11-10] MEDS: LEFLUNOMIDE 10 MG TAB PO SCH (11:10)
[2021-11-10] MEDS ORDERED: levETIRAcetam 1,000 MG in 0.9 % SODIUM CHLORIDE 100 ML IV STA (13:33)
--- NOTE | 2021-11-10 13:42 | Neurology Consultation ---
Date of Consultation November 10, 2021 Assessment & Plan (1) Acute encephalopathy: (2) Abnormal involuntary movements: (3) Cellulitis: Plan this patient has an acute, severe encephalopathy with constant tremor and myoclonic jerks in all 4 limbs and face. EEG, although difficult to evaluate is likely consistent with a seizure activity. The patient has no obvious seizure etiology but she is profoundly anemic and has a low calcium She has cellulitis but no growth has suggested sepsis. A meningoencephalitis is a possibility but she is afebrile and does not have an elevated white count she has no focal neurologic findings. Dr. Smith and I were at bedside together. Recommendations: 1. 1 g IV levetiracetam loading now. After the loading dose continue with 750 mg IV twice daily starting at 6:00 p.m. tonight. 2. nursing will contact me 20 minutes after this has run in and we will make additional recommendations. If she is still having seizure activity I may consider IV Depakote. 3. Avoid benzodiazepines for now but we may need them depending on her clinical course. 4. If we can get her calmed down I would like an MRI of the brain. We may even need a lumbar puncture. Overall, I spent a total of 60 minutes with this case including review of records, review of CT films, direct evaluation the patient at bedside, and discussion of the case at bedside with RN and Dr. Smith, including differential diagnosis and treatment options. History of Present Illness Reason for Consultation: patient is an 80-year-old, who I was asked to see at the request of Dr. Smith, for neurologic consultation regarding altered mental status and abnormal involuntary movements. Requesting Physician: Dr. Smith Attending Physician: Fab Aldana DO History of Present Illness patient has a history of TAVR procedure in March of 2021. 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 The patient has had a left total knee replacement. in August of this year she had a fall resulting in a left knee hematoma. At the time she was on clopidogrel and warfarin. Hematoma was evacuated and she was restarted on the medication. In mid September she had acute confusion and a urinary tract infection with mainly Pseudomonas. She improved after stopping tramadol as well. She was readmitted on November 07 with left knee swelling and warmth consistent with cellulitis. CT scan showed an ulcer an abscess and she underwent debridement procedure by Dr. Aldana on November 09. Prior to surgery she was described as being awake and alert with tremor throughout and no dysarthria. At 1:00 a.m. this morning she had an episode of V-tach and was noted to be tremulous. By 0600 she was felt to be unresponsive with arched posturing and tremors in all 4 limbs. This was continuous throughout today and she will not follow commands. A CT scan of the head was unremarkable without acute changes. CBC showed significant anemia. Chem profile was remarkable for a slightly low sodium, slightly increased glucose and a low calcium. Total CK was 205. An EEG was obtained and was very difficult to read because the patient was in constant movement of her limbs, frequently moving her head off the pillow and looking frequently to the right. Her eyes were open. Despite this it seemed as if she was having some rhythmic sharp waves of a generalized fashion. Allergies Allergy/AdvReac Type Severity Reaction Status Date / Time baclofen Allergy Mild DIZZY Verified 11/07/21 18:53 Penicillins Allergy Mild RASH Verified 11/07/21 18:53 Sulfa (Sulfonamide Allergy Mild HEADACHE Verified 11/07/21 18:53 Antibiotics) Home Medications Medication Instructions Recorded Confirmed Type atorvastatin 40 mg tablet 40 mg PO QAM 07/01/18 11/07/21 History metoprolol succinate 50 mg 50 mg PO BID 07/01/18 11/07/21 History tablet,extended release 24 hr folic acid 1 mg tablet 2 mg PO QAM 10/17/19 11/07/21 History clopidogrel 75 mg tablet 75 mg PO QAM 05/09/20 11/07/21 History ezetimibe 10 mg tablet 10 mg PO QAM 04/21/21 11/07/21 History pantoprazole 40 mg tablet,delayed 40 mg PO QAM 04/21/21 11/07/21 History release ferrous sulfate 325 mg (65 mg 325 mg PO BID 08/21/21 11/07/21 History iron) tablet leflunomide 20 mg tablet 20 mg PO DAILY@1200 08/21/21 11/07/21 History levothyroxine 50 mcg tablet 50 mcg PO QAM 09/03/21 11/07/21 History amlodipine 5 mg tablet (Norvasc) 5 mg PO HS #30 tabs 10/14/21 11/07/21 Rx acetaminophen 325 mg tablet 650 mg PO Q4H PRN pain #30 tabs 10/30/21 11/07/21 Rx mirtazapine 15 mg tablet 15 mg PO HS #30 tabs 10/30/21 11/07/21 Rx tramadol 50 mg tablet 25 mg PO Q6H PRN pain (scale score 10/30/21 11/07/21 Rx 7-10) #20 tabs warfarin 2.5 mg tablet 1.25 mg PO TuTh@1600 #30 tabs 10/30/21 11/07/21 Rx warfarin 2.5 mg tablet (Jantoven) 2.5 mg PO SuMoWeFrSa@1600 #30 tabs 10/30/21 11/07/21 Rx cyanocobalamin (vitamin B-12) 500 500 mcg PO DAILY 11/07/21 11/07/21 History mcg tablet prednisone 5 mg tablet 5 mg PO DAILY 11/07/21 11/07/21 History Patient History Medical History Acute electrocardiogram changes Altered mental status Anemia C. difficile colitis CAD (coronary artery disease) Chronic anticoagulation CKD (chronic kidney disease) stage 3, GFR 30-59 ml/min Coagulopathy Confusion Diverticular disease hx diverticulitis Elevated troponin Fall GERD (gastroesophageal reflux disease) HLD (hyperlipidemia) HTN (hypertension) Hypokalemia Lumbar disc herniation with radiculopathy Lumbar radiculopathy NSVT (nonsustained ventricular tachycardia) Obstructive sleep apnea WEARS O2 AT 2L AT HS On home oxygen therapy 2L AT HS Rheumatoid arthritis RLS (restless legs syndrome) Severe aortic stenosis prior to TAVR SVT (supraventricular tachycardia) Thrombocytopenia Thrombocytopenia Surgical History H/O colonoscopy H/O eye surgery LEFT History of carpal tunnel surgery RT/LEFT History of esophagogastroduodenoscopy (EGD) History of heart artery stent 03/18/2020-TYLER x 2 to LAD History of lumbar fusion History of tooth extraction History of total knee replacement RT/LEFT S/P CHANNING-BSO S/P TAVR (transcatheter aortic valve replacement) Family History Other Heart disease No family history of adverse response to anesthesia Rheumatoid arthritis Social History Smoking Status: Never smoker Tobacco Type: Cigarettes Second Hand Exposure: Yes (IN THE PAST); Do You Dip or Chew Tobacco: No; Hx Alcohol Use: No Hx Substance Use: No Preferred Language: Emirati Communication Ability: Effective 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 She does not follow commands or speak. She has some tremor of the jaw with some foam/ spindle produce between her lips. The arms have a frequent rhythmic tremor bilaterally with some tremor in the feet. She is not overly rigid in any limb but I do see some superimposed myoclonic jerks of a broader nature in her limbs and trunk. Extraocular eye muscles have no nystagmus. She can look to the left but prefers right gaze. Pupils are 3 mm bilaterally reactive to light. Tongue is midline and there is no obvious facial droop. Blood pressure is 142/68 with a pulse of 130. She is afebrile at 36.6 and her O2 saturation with nasal cannula is 92% Reflexes are 1/4 in the biceps triceps and brachioradialis tendons bilaterally and in the right quadriceps. The left is unobtainable because of the bandages and the ankles are absent. Toe seem neutral to upgoing with plantar stimulation bilaterally. She withdraws and grimaces somewhat deep pain in all 4 limbs. There is no vocalization. Results & Data ([facility]) Vital Signs (Past 12 Hours) Vital Signs Temp Pulse Pulse Pulse Resp BP BP 11/10/21 12:00 36.6 C 132 H 20 142/68 H 11/10/21 11:51 129 H 142/68 H 11/10/21 10:42 11/10/21 09:24 110 H 11/10/21 07:39 115 H 150/89 H 11/10/21 07:34 36.6 C 115 H 16 150/89 H 11/10/21 06:15 36.6 C 112 H 20 161/98 H 11/10/21 03:17 36.3 C L 86 18 130/66 Pulse Ox O2 Del Method O2 Flow Rate 11/10/21 12:00 92 Nasal Cannula 2 11/10/21 11:51 11/10/21 10:42 Nasal Cannula 2 11/10/21 09:24 11/10/21 07:39 11/10/21 07:34 95 Nasal Cannula 2 11/10/21 06:15 93 Nasal Cannula 2 11/10/21 03:17 100 Nasal Cannula PG Care Time/CCT Total # of Minutes Spent Total Time Spent with Patient: Total time spent is greater than 50% in coordination of care (as documented) at patient's floor/unit and/or counseling patient: Coding Level of Care Code 01252 Initial Inpt Care Lvl 3 Diagnoses Acute encephalopathy G93.40 Abnormal involuntary movements R25.9 Cellulitis L03.116 Laterality: left Site of cellulitis: extremity Site of cellulitis of extremity: lower extremity (1) Cellulitis Laterality: left Site of cellulitis: extremity Site of cellulitis of extremity: lower extremity Qualified Code(s): L03.116 - Cellulitis of left lower limb
--- NOTE | 2021-11-10 13:53 | Electroencephalogram ---
EEG Procedure Note Date of Service November 10, 2021 Start / End Times Start Time: 1310 End Time: [address] Chapman History 80-year-old with history of acute encephalopathy and continuous tremors and jerking movements of all 4 limbs Home Medication List Medication Instructions Recorded Confirmed Type atorvastatin 40 mg tablet 40 mg PO QAM 07/01/18 11/07/21 History metoprolol succinate 50 mg 50 mg PO BID 07/01/18 11/07/21 History tablet,extended release 24 hr folic acid 1 mg tablet 2 mg PO QAM 10/17/19 11/07/21 History clopidogrel 75 mg tablet 75 mg PO QAM 05/09/20 11/07/21 History ezetimibe 10 mg tablet 10 mg PO QAM 04/21/21 11/07/21 History pantoprazole 40 mg tablet,delayed 40 mg PO QAM 04/21/21 11/07/21 History release ferrous sulfate 325 mg (65 mg 325 mg PO BID 08/21/21 11/07/21 History iron) tablet leflunomide 20 mg tablet 20 mg PO DAILY@1200 08/21/21 11/07/21 History levothyroxine 50 mcg tablet 50 mcg PO QAM 09/03/21 11/07/21 History amlodipine 5 mg tablet (Norvasc) 5 mg PO HS #30 tabs 10/14/21 11/07/21 Rx acetaminophen 325 mg tablet 650 mg PO Q4H PRN pain #30 tabs 10/30/21 11/07/21 Rx mirtazapine 15 mg tablet 15 mg PO HS #30 tabs 10/30/21 11/07/21 Rx tramadol 50 mg tablet 25 mg PO Q6H PRN pain (scale score 10/30/21 11/07/21 Rx 7-10) #20 tabs warfarin 2.5 mg tablet 1.25 mg PO TuTh@1600 #30 tabs 10/30/21 11/07/21 Rx warfarin 2.5 mg tablet (Jantoven) 2.5 mg PO SuMoWeFrSa@1600 #30 tabs 10/30/21 11/07/21 Rx cyanocobalamin (vitamin B-12) 500 500 mcg PO DAILY 11/07/21 11/07/21 History mcg tablet prednisone 5 mg tablet 5 mg PO DAILY 11/07/21 11/07/21 History Inpatient Medication List Amlodipine Besylate (Amlodipine Besylate 5 Mg Tab) 5 mg PO HS STEPHANIE Stop: 12/07/21 22:05 Last Admin: 11/09/21 20:20 Dose: Not Given Documented By: Admin: 11/08/21 20:16 Dose: Not Given Documented By: Admin: 11/07/21 23:14 Dose: Not Given Documented By: AMY Cyanocobalamin (Cyanocobalamin (B-12) 500 Mcg Tablet) 500 mcg PO DAILY STEPHANIE Stop: 12/08/21 08:59 Last Admin: 11/10/21 08:58 Dose: Not Given Documented By: Admin: 11/09/21 10:55 Dose: Not Given Documented By: Admin: 11/08/21 11:08 Dose: Not Given Documented By: FRANKLYN Docusate Sodium (Docusate Sodium 100 Mg Cap) 100 mg PO BID STEPHANIE Stop: 12/09/21 20:59 Last Admin: 11/10/21 08:58 Dose: Not Given Documented By: Admin: 11/09/21 20:17 Dose: Not Given Documented By: AMY Ezetimibe (Ezetimibe 10 Mg Tablet) 10 mg PO QAM [facility] Stop: 12/08/21 08:59 Last Admin: 11/10/21 08:58 Dose: Not Given Documented By: Admin: 11/09/21 10:55 Dose: Not Given Documented By: Admin: 11/08/21 11:08 Dose: Not Given Documented By: FRANKLYN Ferrous Sulfate (Ferrous Sulfate 325 Mg Tab) 325 mg PO BID STEPHANIE Stop: 12/07/21 22:05 Last Admin: 11/10/21 08:58 Dose: Not Given Documented By: Admin: 11/09/21 20:20 Dose: Not Given Documented By: Admin: 11/09/21 10:55 Dose: Not Given Documented By: Admin: 11/08/21 20:16 Dose: Not Given Documented By: Admin: 11/08/21 11:08 Dose: Not Given Documented By: Admin: 11/07/21 23:14 Dose: 325 mg Documented By: AMY Folic Acid (Folic Acid 1 Mg Tab) 2 mg PO QAM STEPHANIE Stop: 12/08/21 08:59 Last Admin: 11/10/21 08:58 Dose: Not Given Documented By: Admin: 11/09/21 10:55 Dose: Not Given Documented By: Admin: 11/08/21 11:08 Dose: Not Given Documented By: FRANKLYN Daptomycin 200 mg/ Syringe 4 mls @ 2 mls/min IV Q24H SETPHANIE; Protocol Stop: 11/15/21 19:59 Last Admin: 11/09/21 20:16 Dose: 2 mls/min Documented By: Admin: 11/08/21 20:15 Dose: 2 mls/min Documented By: AMY Cefepime HCl 2,000 mg/ Syringe 20 mls @ 5 mls/min IV Q12H STEPHANIE; Protocol Stop: 11/15/21 00:00 Last Admin: 11/10/21 08:57 Dose: 5 mls/min Documented By: Admin: 11/09/21 20:16 Dose: 5 mls/min Documented By: Admin: 11/09/21 07:51 Dose: 5 mls/min Documented By: Admin: 11/08/21 20:15 Dose: 5 mls/min Documented By: AMY Acetaminophen (Ofirmev) 1,000 mg in 100 mls @ 400 mls/hr IV Q8H PRN PRN Reason: pain/fever Stop: 11/11/21 20:08 Last Infusion: 11/10/21 01:35 Dose: 0 mls/hr Documented By: Admin: 11/10/21 01:17 Dose: 400 mls/hr Documented By: MAYE Levothyroxine Sodium 25 mcg/ (Syringe) 1.25 mls @ 0.625 mls/min IV Q72H STEPHANIE; Protocol Stop: 12/10/21 08:59 Last Admin: 11/10/21 08:57 Dose: 0.625 mls/min Documented By: BEAU Lactated Ringer's (Lr) 1,000 mls @ 60 mls/hr IV .[id number] ONE Stop: 11/10/21 17:22 Last Admin: 11/10/21 01:28 Dose: 60 mls/hr Documented By: MAYE Lactobacillus Acidophilus (Advanced Probiotic 1250 Mg Capsule) 2 cap PO DAILY STEPHANIE Stop: 12/08/21 08:59 Last Admin: 11/10/21 08:58 Dose: Not Given Documented By: Admin: 11/09/21 10:56 Dose: Not Given Documented By: Admin: 11/08/21 11:09 Dose: Not Given Documented By: FRANKLYN Leflunomide (Leflunomide 10 Mg Tab) 20 mg PO DAILY@1200 [facility] Stop: 12/08/21 11:59 Last Admin: 11/10/21 11:10 Dose: Not Given Documented By: Admin: 11/09/21 14:05 Dose: Not Given Documented By: Admin: 11/08/21 15:07 Dose: Not Given Documented By: FRANKLYN Mirtazapine (Mirtazapine Tab 15 Mg Tab) 15 mg PO [facility] Stop: 12/07/21 22:05 Last Admin: 11/09/21 20:20 Dose: Not Given Documented By: Admin: 11/08/21 20:16 Dose: Not Given Documented By: Admin: 11/07/21 23:14 Dose: Not Given Documented By: AMY Multivitamins (Multivitamin Tab) 1 tab PO [facility] Stop: 12/10/21 08:59 Last Admin: 11/10/21 08:58 Dose: Not Given Documented By: BEAU Pantoprazole Sodium (Pantoprazole 40 Mg Tab) [facility] Stop: 12/08/21 08:59 Last Admin: 11/10/21 08:58 Dose: Not Given Documented By: Admin: 11/09/21 10:56 Dose: Not Given Documented By: Admin: 11/08/21 11:09 Dose: Not Given Documented By: FRANKLYN Prednisone (Prednisone 5 Mg Tab) 5 mg PO DAILY [facility] Stop: 12/08/21 08:59 Last Admin: 11/10/21 08:58 Dose: Not Given Documented By: Admin: 11/09/21 10:56 Dose: Not Given Documented By: Admin: 11/08/21 11:09 Dose: Not Given Documented By: FRANKLYN Sennosides (Senna 8.6 Mg Tab) 17.2 mg PO [facility] Stop: 12/09/21 20:59 Last Admin: 11/09/21 20:17 Dose: Not Given Documented By: AMY Tramadol HCl (Tramadol Hcl 50 Mg Tablet) 25 mg PO Q6H PRN PRN Reason: pain (scale score 7-10) Stop: 12/07/21 22:05 Last Admin: 11/08/21 04:18 Dose: 25 mg Documented By: RON Warfarin Sodium (Warfarin Sod 2.5 Mg Tab) 2.5 mg PO SuMoWeFrSa@1600 STEPHANIE Stop: 12/09/21 15:59 Last Admin: 11/09/21 18:36 Dose: Not Given Documented By: FRANKLYN Discontinued Medications Cefazolin Sodium (Cefazolin 330 Mg/Ml 1 Gm Vial) Confirm Administered Dose 1,980 mg .ROUTE .STK-MED ONE Stop: 11/09/21 10:49 Last Admin: 11/09/21 11:24 Dose: 1,980 mg Documented By: EDUARDA Fentanyl Citrate (Fentanyl Citrate 100 Mcg/2 Ml Vial) 25 mcg IV Q5M PRN PRN Reason: PACU Use Only-Pain Stop: 11/09/21 18:04 Last Admin: 11/09/21 12:26 Dose: 25 mcg Documented By: Admin: 11/09/21 12:14 Dose: 25 mcg Documented By: Admin: 11/09/21 12:08 Dose: 25 mcg Documented By: ALESSANDRA Ceftriaxone Sodium (Rocephin) 2,000 mg in 70 mls @ 140 mls/hr IV NOW STA Stop: 11/07/21 17:07 Last Infusion: 11/07/21 17:50 Dose: 0 mls/hr Documented By: Admin: 11/07/21 17:12 Dose: 140 mls/hr Documented By: HERSON Phytonadione 2.5 mg/ Dextrose 50.25 mls @ 100.5 mls/hr IV ONE STA Stop: 11/07/21 19:49 Last Infusion: 11/07/21 20:25 Dose: 0 mls/hr Documented By: Admin: 11/07/21 19:48 Dose: 100.5 mls/hr Documented By: SHANIQUA Daptomycin 200 mg/ Syringe 4 mls @ 2 mls/min IV ONE STA; Protocol Stop: 11/07/21 19:23 Last Admin: 11/07/21 19:48 Dose: 2 mls/min Documented By: SHANIQUA Cefepime HCl 2,000 mg/ Syringe 20 mls @ 5 mls/min IV Q8H [facility]; Protocol Stop: 11/15/21 00:00 Last Admin: 11/08/21 08:00 Dose: 5 mls/min Documented By: Admin: 11/08/21 00:19 Dose: 5 mls/min Documented By: AMY Sodium Chloride (Nss) 500 mls @ 50 mls/hr IV .Q10H STEPHANIE Stop: 11/09/21 18:14 Last Infusion: 11/09/21 14:31 Dose: 0 mls/hr Documented By: Admin: 11/09/21 08:35 Dose: 50 mls/hr Documented By: FRANKLYN Sodium Chloride (Nss 1000ml) 1,000 mls @ 100 mls/hr IV .Q10H STEPHANIE Stop: 11/10/21 06:00 Last Infusion: 11/10/21 01:29 Dose: 0 mls/hr Documented By: Admin: 11/09/21 20:31 Dose: 100 mls/hr Documented By: Infusion: 11/09/21 20:31 Dose: 100 mls/hr Documented By: Admin: 11/09/21 14:05 Dose: 100 mls/hr Documented By: FRANKLYN Potassium Chloride (K Chandana / Wtr) 10 meq in 100 mls @ 100 mls/hr IV ONE ONE Stop: 11/09/21 18:44 Last Infusion: 11/09/21 20:10 Dose: 0 mls/hr Documented By: Admin: 11/09/21 18:28 Dose: 100 mls/hr Documented By: FRANKLYN Magnesium Sulfate/Dextrose (Magnesium Sulfate / D5w) 1 gm in 100 mls @ 50 mls/hr IV ONE ONE Stop: 11/09/21 19:44 Last Infusion: 11/09/21 20:32 Dose: 0 mls/hr Documented By: Admin: 11/09/21 18:28 Dose: 50 mls/hr Documented By: FRANKLYN Magnesium Sulfate/Dextrose (Magnesium Sulfate / D5w) 1 gm in 100 mls @ 50 mls/hr IV ONE ONE Stop: 11/10/21 02:38 Last Infusion: 11/10/21 03:38 Dose: 0 mls/hr Documented By: Admin: 11/10/21 01:28 Dose: 50 mls/hr Documented By: MAYE Potassium Chloride (K Chandana / Wtr) 10 meq in 100 mls @ 100 mls/hr IV Q1H STEPHANIE Stop: 11/10/21 03:44 Last Infusion: 11/10/21 04:09 Dose: 0 mls/hr Documented By: Admin: 11/10/21 02:56 Dose: 100 mls/hr Documented By: Infusion: 11/10/21 02:29 Dose: 0 mls/hr Documented By: Admin: 11/10/21 01:29 Dose: 100 mls/hr Documented By: Infusion: 11/10/21 01:29 Dose: 100 mls/hr Documented By: Admin: 11/10/21 01:28 Dose: 100 mls/hr Documented By: MAYE Lorazepam 0.25 mg/ Syringe 0.25 mls @ 2 mls/min IV 0645 ONE Stop: 11/10/21 06:46 Last Admin: 11/10/21 07:39 Dose: 2 mls/min Documented By: BEAU Ketorolac Tromethamine (Ketorolac Tromethamine 15 Mg/Ml Vial) 15 mg IV NOW ONE Stop: 11/08/21 20:05 Last Admin: 11/08/21 20:14 Dose: 15 mg Documented By: AMY Levothyroxine Sodium (Levothyroxine Sodium 50 Mcg Tablet) 50 mcg PO DAILY@0630 [facility] Stop: 12/08/21 06:29 Last Admin: 11/09/21 05:13 Dose: Not Given Documented By: Admin: 11/08/21 06:16 Dose: Not Given Documented By: AMY Metoprolol Succinate (Metoprolol Succ 50mg Ext Rel Tab) 50 mg PO BID [facility] Stop: 12/07/21 22:05 Last Admin: 11/09/21 20:20 Dose: Not Given Documented By: Admin: 11/09/21 10:56 Dose: Not Given Documented By: Admin: 11/08/21 20:16 Dose: Not Given Documented By: Admin: 11/08/21 11:09 Dose: Not Given Documented By: Admin: 11/07/21 23:14 Dose: Not Given Documented By: AMY Metoprolol Tartrate (Metoprolol Tartrate 1 Mg/Ml Vial) Confirm Administered Dose 5 mg IV .STK-MED ONE Stop: 11/09/21 12:34 Last Increment: 11/09/21 12:37 Dose: 3 mg Documented By: ALESSANDRA Metoprolol Tartrate (Metoprolol Tartrate 1 Mg/Ml Vial) 2.5 mg IV Q6 STEPHANIE Stop: 12/09/21 22:39 Last Admin: 11/10/21 07:31 Dose: Not Given Documented By: Admin: 11/09/21 23:15 Dose: 2.5 mg Documented By: MAYE Metoprolol Tartrate (Metoprolol Tartrate 1 Mg/Ml Vial) 2.5 mg IV Q6 STEPHANIE Stop: 12/10/21 06:34 Last Admin: 11/10/21 11:51 Dose: 2.5 mg Documented By: Admin: 11/10/21 07:39 Dose: 2.5 mg Documented By: SM Ondansetron HCl (Ondansetron Inj 2 Mg/Ml 2 Ml Vial) 4 mg IV Q6H PRN PRN Reason: Nausea Stop: 12/07/21 22:05 Last Admin: 11/08/21 10:35 Dose: 4 mg Documented By: Admin: 11/07/21 22:20 Dose: 4 mg Documented By: DPK Description This is a 21 electrode EEG with a single channel dedicated to limited EKG. The electrodes were placed in accordance with the International 10-20 system. Interpretation The predominant background activity consists of very irregular 5-7 hertz activity seen throughout all head regions, of up to 60 mV in amplitude. this activity had no alteration with alerting procedures or deep pain in any limb (although the patient did grimace and withdrawal some when given deep pain). Photic stimulation was performed and elicited no change in the background activity. Hyperventilation was not performed. A considerable/continuous amount of muscle tension and movement artifact activity contaminated the recording she lifted her head off the bed frequently, move her head nice to the right frequently and had movements of all 4 limbs arms, greater than legs bilaterally. She kept her eyes open throughout most of the recording. This artifact activity made it very difficult to interpret this recording. However, throughout the recording, there were fragmented generalized sharp waves ( centering around the temporal head regions bilaterally ) and frequent sharp waves of a generalized nature. There was no significant rhythmicity to these but they were very frequent. In summary, this EEG Was markedly abnormal. There was slowing of the background activity consistent with a moderate encephalopathy, and there was generalized potentially epileptogenic activity seen throughout. The patient, therefore, could be considered in a type of status epilepticus. Clinical Correlation The slow background activity is consistent with a moderate to significant encephalopathy, which could be due to a wide variety of causes (clinical correlation is required ), but likely due to the ongoing seizure activity. [facility] EEG Procedure Codes Indication for Procedure (1) Observed seizure-like activity: (2) Acute encephalopathy: Neurology Neurology: 32891 EEG include record awake & drowsy
[2021-11-10] MEDS: WARFARIN SOD 2.5 MG TAB PO SCH (16:07)
--- NOTE | 2021-11-10 16:22 | Orthopedic Progress Note ---
Date of Service November 10, 2021 Assessment & Plan (1) Cellulitis of left knee: Plan: Postop day #1 status post 1. Incision and drainage, left knee medial abscess. 2. Debridement of left knee medial ulcer 1.2 cm x 1.2 cm x 0.6 cm including skin, dermis, subcutaneous tissue, and fascia. 3. Irrigation and debridement of left medial knee ulcer measuring 1.9 cm x 1.9 cm x 0.8 cm including skin, dermis, subcutaneous tissue, and fascia. Dressing kept intact today. Plan for dressing change tomorrow. No organisms seen on gram stain. Awaiting final intraoperative cultures. Discharge planninguncertain at this time. (2) Cutaneous abscess of left knee: Admission and Anticipated Discharge Date Admission Date: November 07, 2021 Subjective No history obtained from the patient secondary to encephalopathy. Physical Exam Musculoskeletal: Knee: + surgical incision (Dressing is clean/dry/intact. No drainage on Jaylen bandage.); no surgical drain present Results & Data ([facility]) Vital Signs (Past 12 Hours) Vital Signs Temp Pulse Pulse Pulse Resp BP BP 11/10/21 16:08 89 11/10/21 16:00 36.5 C 96 H 20 128/86 11/10/21 12:00 36.6 C 132 H 20 11/10/21 11:51 129 H 142/68 H 11/10/21 10:42 11/10/21 09:24 110 H 11/10/21 07:39 115 H 150/89 H 11/10/21 07:34 36.6 C 115 H 16 11/10/21 06:15 36.6 C 112 H 20 BP Pulse Ox O2 Del Method O2 Flow Rate 11/10/21 16:08 11/10/21 16:00 99 Nasal Cannula 2 11/10/21 12:00 142/68 H 92 Nasal Cannula 2 11/10/21 11:51 11/10/21 10:42 Nasal Cannula 2 11/10/21 09:24 11/10/21 07:39 11/10/21 07:34 150/89 H 95 Nasal Cannula 2 11/10/21 06:15 161/98 H 93 Nasal Cannula 2
[2021-11-10] MEDS ORDERED: VALPROATE SOD 1,000 MG in DEXTROSE 5% 50 ML IV SCH (18:00)
[2021-11-10] MEDS ORDERED: levETIRAcetam 750 MG in 0.9 % SODIUM CHLORIDE 100 ML IV SCH (18:00)
[2021-11-10] MEDS: DAPTOmycin 200 MG in SYRINGE 0 ML IV SCH (19:40)
[2021-11-10] MEDS: SENNA 8.6 MG TAB PO SCH (19:42)
[2021-11-10] MEDS: amLODIPine BESYLATE 5 MG TAB PO SCH (19:42)
--- NOTE | 2021-11-10 22:50 | Hospitalist Progress Note ---
Date of Service November 10, 2021 Assessment & Plan (1) Cellulitis of left knee: (2) Cutaneous abscess of left knee: (3) CAD (coronary artery disease): (4) S/P TAVR (transcatheter aortic valve replacement): (5) Rheumatoid arthritis: (6) Chronic anemia: (7) Obstructive sleep apnea: (8) Hx pulmonary embolism: Plan This is an 80-year-old female who has a significant past medical history of CAD status post TYLER x2 to mid LAD 03/18/2020, history of aortic stenosis status post TAVR March 2021, HTN, HLD, INA on 2 L of O2 at at bedtime, rheumatoid arthritis on leflunomide and chronic prednisone therapy, chronic anemia, CKD stage III, history of PE/DVT in 2017 anticoagulated on warfarin who presents to ED 2/2 worsening L knee redness and concern for infection. Cellulitis of left knee Abscess of left knee Left knee has been becoming increasingly more red, swollen and warm. Patient does not meet criteria for SIRS or sepsis. She had left knee hematoma drained back in August. CT left knee showed Evidence for soft tissue ulceration with underlying deep subcutaneous fluid collection most characteristic of an abscess. small to moderate-sized joint effusion. Continue IV abx cefepime and daptomycin Ortho on board plan for incision and drainage fluid collection left medial knee whether it be a seroma or abscess will be cultured at that time. 11/10 Postop day #1 status postincision and drainage, left knee medial abscess. 2. Debridement of left knee medial ulcer 1.2 cm x 1.2 cm x 0.6 cm including skin, dermis, subcutaneous tissue, and fascia. 3. Irrigation and debridement of left medial knee ulcer measuring 1.9 cm x 1.9 cm x 0.8 cm including skin, dermis, subcutaneous tissue, and fascia. ID on board recommended to change cefepime to meropenem for possible neurotoxicity Continue with Daptomycin Blood cx and culture from I&D no growth for now CAD status post TYLER 03/18/2020 History of TAVR in March 2021 Chronic diastolic heart failure HTN HLD Patient's volume status compensated She denies chest pain or shortness of breath EKG without change Holding Plavix in setting of likely procedure, resume when okay with Ortho Holding statin in setting of daptomycin, resume when able pt refused metoprolol and amlodipine Continue IV lopressor for now while not able to take po intake Rheumatoid arthritis On chronic prednisone therapy as well as leflunomide Previous admissions and discharge summaries reflect patient taking methotrexate Methotrexate is currently not on patient's med reconciliation from [facility] and this was confirmed with facility per external pharmacy looks like last prescribed 10/17/21, therefore not sure where it may have dropped off but may need to be determined if pt needs to be on this medication or not for her RA Will reach her rheumatology on Wednesday to confirm if pt is taking the metrotrexate Pt refused her Prednisone yesterday and today. revceivedd stress dose steroid INA on 2L O2 at HS Hypothyroidism continue levothyroxine Chronic Anemia hgb dropped to 8. 5 not sure if dilutional hgb today 7.8 today with baseline ~ 10 Continue monitor H/H closely Stable CKD -3 Hgb 0.8 avoid nephrotoxic agents Stable Hx of PE/DVT in 2017 on senior care warfarin therapy Vitamin K given on admission INR 1.1 today Coumadin resume If NPO will consider to start n heparin Dispo: medical, likely to return back to [facility] FULL CODE PCP: Shereen Admission and Anticipated Discharge Date Admission Date: November 07, 2021 Subjective Pt was seen and examined for postop left knee pain I&D Lying in bed confused very tremulous Pt was not follow any command I spoke to son at bedside. Son said he saw her on , pt was able to communicate and follow command Son said pt had mild tremor at baseline but he has never seen her like that Review of Systems Review of Systems: All systems reviewed & are unremarkable except as noted in Subjective Physical Exam Physical Exam: General- confused Head- atraumatic Eyes- PERRL, EOMI, ENT- oropharynx clear Neck- supple, no JVD Lungs- clear to auscultation Heart- regular rhythm; no murmur Abdomen- normal bowel sounds, soft, nontender Extremities- no calf tenderness, +left knee pain with hemovac Neuro +tremors, not able to follow command, confused Skin- warm & dry Results & Data Results & Data ([facility]) Vital Signs (Past 12 Hours) Vital Signs Temp Pulse Pulse Resp BP BP BP 11/10/21 21:44 108 H 142/86 H 11/10/21 21:43 108 H 142/86 H 11/10/21 19:49 36.8 C 97 H 16 129/68 11/10/21 17:56 112 H 132/78 11/10/21 16:08 89 11/10/21 16:00 36.5 C 96 H 20 128/86 11/10/21 12:00 36.6 C 132 H 20 142/68 H 11/10/21 11:51 129 H 142/68 H Pulse Ox O2 Del Method O2 Flow Rate 11/10/21 21:44 11/10/21 21:43 11/10/21 19:49 96 Nasal Cannula 2 11/10/21 17:56 11/10/21 16:08 11/10/21 16:00 99 Nasal Cannula 2 11/10/21 12:00 92 Nasal Cannula 2 11/10/21 11:51 (1) Rheumatoid arthritis Rheumatoid arthritis location: unspecified site Rheumatoid factor presence: unspecified presence Qualified Code(s): M06.9 - Rheumatoid arthritis, unspeci fied
[2021-11-10] MEDS: VALPROATE SOD 250 MG in DEXTROSE 5% 50 ML IV SCH (23:50)
[2021-11-11] MEDS: METOPROLOL TARTRATE 1 MG/ML VIAL IV SCH ×6 (01:34→20:53)
[2021-11-11] MEDS: VALPROATE SOD 250 MG in DEXTROSE 5% 50 ML IV SCH ×4 (05:53→23:15)
[2021-11-11] MEDS ORDERED: MEROPENEM 2,000 MG in 0.9 % SODIUM CHLORIDE 58 ML IV SCH (07:30)
--- NOTE | 2021-11-11 08:12 | Neurology Progress Note ---
Date of Service November 11, 2021 Assessment & Plan (1) Observed seizure-like activity: (2) Acute encephalopathy: Plan This patient has an acute, severe encephalopathy with constant tremor and myoclonic jerks in all 4 limbs and face. EEG, although difficult to evaluate, is consistent with ongoing seizure activity. Therefore, this is a status epilepticus. It is multifocal in origin but tends to be generalized on EEG. This morning she is having more right brain focus than yesterday. The patient has no obvious seizure etiology but she is profoundly anemic and has a low calcium Unlike the levetiracetam, valproic acid has greatly improved her seizure activity, but it has not resolved it She has cellulitis but no growth has suggested sepsis. A meningoencephalitis is a possibility but she is afebrile and does not have an elevated white count she has no other focal neurologic findings. Recommendations: 1. Continue IV valproic acid 250 mg q.6 hours. 2. Check a stat Depakote level this morning (as well as other labs to include CBC, electrolytes, calcium, and magnesium ). improving the hypocalcemia will likely help her seizure activity 3. Depending on her clinical course and her level (which would be a peak), I may give her an extra load of Depakote 4. Avoid benzodiazepines for now but we may need them depending on her clinical course. 5. once we stop the seizure activity I think we should obtain an MRI of the brain with/without contrast and consider a lumbar puncture. Overall, I spent a total of 35 minutes with this case including review of records, direct evaluation the patient at bedside, and discussion of the case at bedside with RN, and with Dr. Smith including differential diagnosis and treatment options. Admission and Anticipated Discharge Date Admission Date: November 07, 2021 Subjective the patient is unresponsive fit cannot give a history. Nursing reports improvement of her abnormal involuntary movements tremors, and myoclonic jerks overnight. A loading dose of levetiracetam did not help. Levetiracetam was then discontinued and she was given a 1 g loading dose of valproic acid last evening. This helped seizure activity considerably. Labs from this morning are pending Results & Data ([facility]) Vital Signs (Past 12 Hours) Vital Signs Temp Pulse Pulse Resp BP BP BP 11/11/21 07:10 76 11/11/21 05:16 101 H 132/79 11/11/21 05:13 36.7 C 99 H 16 132/79 11/11/21 03:00 11/11/21 01:34 101 H 146/68 H 11/10/21 23:59 11/10/21 23:00 11/10/21 22:58 36.7 C 97 H 18 131/55 L 11/10/21 22:54 95 H 11/10/21 21:44 108 H 142/86 H 11/10/21 21:43 108 H 142/86 H Pulse Ox O2 Del Method O2 Flow Rate 11/11/21 07:10 11/11/21 05:16 11/11/21 05:13 98 Nasal Cannula 2 11/11/21 03:00 Nasal Cannula 2 11/11/21 01:34 11/10/21 23:59 Nasal Cannula 2 11/10/21 23:00 Nasal Cannula 2 11/10/21 22:58 96 Nasal Cannula 2 11/10/21 22:54 11/10/21 21:44 11/10/21 21:43 Exam (Neuro) Physical Exam: she is lying in bed with her head in eyes somewhat to the left. They could see twitching of the left upper extremity and her jaw/lips. Was some mild twitching in the right foot and 1st. The patient no response to shout or gentle shake. She occasionally opens her eyes spontaneously but tended to keep them closed. Her head and eyes were mostly to the left. With passive movement of her head (neck was supple) she had positive oculocephalic movements. There was no facial droop. Tone was equal in the limbs and she had seizure activity ( mild jerking and occasional myoclonic jerks ) mostly the upper extremity. PG Care Time/CCT Total # of Minutes Spent Total Time Spent with Patient: Total time spent is greater than 50% in coordination of care (as documented) at patient's floor/unit and/or counseling patient: Coding Level of Care Code 45452 Subseq Hosp Care Lvl 3 Diagnoses Observed seizure-like activity R56.9 Acute encephalopathy G93.40
[2021-11-11 08:43] LABS: Hematocrit (blood only) 24.6 % (34.1-44.9); Hemoglobin 8.1 g/dl (12.0-16.0); Mean Corpuscular Hemoglobin 33.6 pg (25.0-34.0); Mean Corpuscular Hgb Conc 32.9 g/dL (32.0-36.0); Mean Corpuscular Volume 102.1 fL (80.0-100.0); Mean Platelet Volume 10.6 fL (9.4-12.3); Platelet Count 87 K/uL (130-400); RDW Coefficient of Variation 14.6 % (11.5-14.5); RDW Standard Deviation 55.3 fL (36.4-46.3); Red Blood Count 2.41 M/uL (3.93-5.22)
[2021-11-11] MEDS: CYANOCOBALAMIN (B-12) 500 MCG TABLET PO SCH (09:00)
[2021-11-11] MEDS: EZETIMIBE 10 MG TABLET PO SCH (09:00)
[2021-11-11] MEDS: DOCUSATE SODIUM 100 MG CAP PO SCH ×2 (09:00→20:15)
[2021-11-11] MEDS: PANTOprazole 40 MG TAB PO SCH (09:01)
[2021-11-11] MEDS: predniSONE 5 MG TAB PO SCH (09:01)
[2021-11-11] MEDS: FERROUS SULFATE 325 MG TAB PO SCH ×2 (09:01→20:15)
[2021-11-11] MEDS: ADVANCED PROBIOTIC 1250 MG CAPSULE PO SCH (09:01)
[2021-11-11] MEDS: FOLIC ACID 1 MG TAB PO SCH (09:01)
[2021-11-11] MEDS: MULTIVITAMIN TAB PO SCH (09:01)
[2021-11-11 09:06] LABS: INR 1.3 (0.9-1.1); Prothrombin Time 14.1 Seconds (9.0-12.0)
[2021-11-11 09:07] LABS: Albumin Globulin Ratio 1.2 (0.9-2); Albumin Level 2.5 gm/dl (3.4-5.0); BUN Creatinine Ratio 26.9 (10-20); Bilirubin,Total 0.6 mg/dl (0.2-1.0); Calcium 7.2 mg/dl (8.5-10.1); Creatinine Clr Calc Pharmacy 49.7 ml/min; Est GFR (African American) 95.5 ml/min; Est GFR (Non-African American) 82.4 ml/min; Globulin 2.1 gm/dl (2.5-4.0); Potassium 3.6 mmol/L (3.5-5.1); Total Protein 4.6 gm/dl (6.0-8.3)
--- NOTE | 2021-11-11 11:23 | Orthopedic Progress Note ---
Date of Service November 11, 2021 Assessment & Plan (1) Cellulitis of left knee: Plan: Postop day #1 status post 1. Incision and drainage, left knee medial abscess. 2. Debridement of left knee medial ulcer 1.2 cm x 1.2 cm x 0.6 cm including skin, dermis, subcutaneous tissue, and fascia. 3. Irrigation and debridement of left medial knee ulcer measuring 1.9 cm x 1.9 cm x 0.8 cm including skin, dermis, subcutaneous tissue, and fascia. Daily dressing changes. No organisms seen on gram stain. Pin point growth/ reincubating. Awaiting final intraoperative cultures. Discharge planninguncertain at this time. Ortho will sign off at this time. No further I&D's needed currently. Daily dressing changes. (2) Cutaneous abscess of left knee: Admission and Anticipated Discharge Date Admission Date: November 07, 2021 Subjective POD 2 Pt very somnolent but arousable. Goes back to sleep quickly. Appears comfortable. Physical Exam Physical Exam: Dressings removed. Wounds well approximated. No erythema. Minimal swelling. Redressed. Results & Data ([facility]) Vital Signs (Past 12 Hours) Vital Signs Temp Pulse Pulse Pulse Resp BP BP 11/11/21 09:36 96 H 139/68 11/11/21 08:02 37 C 96 H 18 139/68 11/11/21 07:10 76 11/11/21 05:16 101 H 132/79 11/11/21 05:13 36.7 C 99 H 16 132/79 11/11/21 03:00 11/11/21 01:34 101 H 146/68 H 11/10/21 23:59 Pulse Ox O2 Del Method O2 Flow Rate 11/11/21 09:36 11/11/21 08:02 97 Nasal Cannula 2 11/11/21 07:10 11/11/21 05:16 11/11/21 05:13 98 Nasal Cannula 2 11/11/21 03:00 Nasal Cannula 2 11/11/21 01:34 11/10/21 23:59 Nasal Cannula 2
[2021-11-11] MEDS: LEFLUNOMIDE 10 MG TAB PO SCH (11:35)
[2021-11-11] MEDS: MEROPENEM 500 MG in SYRINGE 0 ML IV SCH ×2 (11:36→17:53)
[2021-11-11] MEDS ORDERED: VALPROATE SOD 500 MG in DEXTROSE 5% 50 ML IV ONE (14:00)
[2021-11-11] MEDS: WARFARIN SOD 1.25 MG TAB PO SCH (15:52)
--- NOTE | 2021-11-11 16:27 | Hospitalist Progress Note ---
Date of Service November 11, 2021 Assessment & Plan (1) Cellulitis of left knee: (2) Cutaneous abscess of left knee: (3) CAD (coronary artery disease): (4) S/P TAVR (transcatheter aortic valve replacement): (5) Rheumatoid arthritis: (6) Chronic anemia: (7) Obstructive sleep apnea: (8) Hx pulmonary embolism: Plan This is an 80-year-old female who has a significant past medical history of CAD status post TYLER x2 to mid LAD 03/18/2020, history of aortic stenosis status post TAVR March 2021, HTN, HLD, INA on 2 L of O2 at at bedtime, rheumatoid arthritis on leflunomide and chronic prednisone therapy, chronic anemia, CKD stage III, history of PE/DVT in 2017 anticoagulated on warfarin who presents to ED 2/2 worsening L knee redness and concern for infection. Cellulitis of left knee Abscess of left knee Left knee has been becoming increasingly more red, swollen and warm. Patient does not meet criteria for SIRS or sepsis. She had left knee hematoma drained back in August. CT left knee showed Evidence for soft tissue ulceration with underlying deep subcutaneous fluid collection most characteristic of an abscess. small to moderate-sized joint effusion. Continue IV abx cefepime and daptomycin Ortho on board plan for incision and drainage fluid collection left medial knee whether it be a seroma or abscess will be cultured at that time. 11/10 Postop day #2 status postincision and drainage, left knee medial abscess. 2. Debridement of left knee medial ulcer 1.2 cm x 1.2 cm x 0.6 cm including skin, dermis, subcutaneous tissue, and fascia. 3. Irrigation and debridement of left medial knee ulcer measuring 1.9 cm x 1.9 cm x 0.8 cm including skin, dermis, subcutaneous tissue, and fascia. ID on board recommended to change cefepime to meropenem for possible neurotoxicity Continue with Daptomycin Blood cx no growth for now Wound cx grew pin-point present , reincubating Observed seizure-like activity: Acute encephalopathy: CT head showed no acute intracranial abnormality EEG was markedly abnormal. There was slowing of the background activity consistent with a moderate encephalopathy, and there was generalized potentially epileptogenic activity seen throughout. Neuro on board Loading dose Keppra given yesterday and he was starting on Keppra 750mg BID No significant improvement in the tremor after starting keppra dose Keppra changed to Valproic acid Will check the valproic acid level Consider to get an MRI head once improves CAD status post TYLER 03/18/2020 History of TAVR in March 2021 Chronic diastolic heart failure HTN HLD Patient's volume status compensated She denies chest pain or shortness of breath EKG without change Holding Plavix in setting of likely procedure, resume when okay with Ortho Holding statin in setting of daptomycin, resume when able pt refused metoprolol and amlodipine Continue IV lopressor for now while not able to take po intake Rheumatoid arthritis On chronic prednisone therapy as well as leflunomide Previous admissions and discharge summaries reflect patient taking methotrexate Methotrexate is currently not on patient's med reconciliation from [facility] and this was confirmed with facility per external pharmacy looks like last prescribed 10/17/21, therefore not sure where it may have dropped off but may need to be determined if pt needs to be on this medication or not for her RA Will try to reach her rheumatology to confirm if pt is taking the Methotrexate Pt refused her Prednisone yesterday and today. received stress dose steroid INA on 2L O2 at HS Hypothyroidism continue levothyroxine Chronic Anemia hgb dropped to 8. 5 not sure if dilutional hgb today 7.8 today with baseline ~ 10 Continue monitor H/H closely Stable CKD -3 Hgb 0.8 avoid nephrotoxic agents Stable Hx of PE/DVT in 2017 on long term care administrator warfarin therapy Vitamin K given on admission INR 1.1 today Resume Coumadin, but patient NPO Consider to start on IV heparin if continue to be unresponsive and hgb stable Dispo: medical, likely to return back to [facility] FULL CODE DVT px will add on heparin sub. PCP: Shereen Admission and Anticipated Discharge Date Admission Date: November 07, 2021 Subjective Pt was seen and examined for postop left knee pain I&D Pt continues to be unresponsive and tremulous Keppra was starting yesterday showed with no relief Review of Systems Review of Systems: All systems reviewed & are unremarkable except as noted in Subjective Physical Exam Physical Exam: General- confused Head- atraumatic Eyes- PERRL, EOMI, ENT- oropharynx clear Neck- supple, no JVD Lungs- clear to auscultation Heart- regular rhythm; no murmur Abdomen- normal bowel sounds, soft, nontender Extremities- no calf tenderness, +left knee pain with hemovac Neuro +tremors, not able to follow command, confused Skin- warm & dry Results & Data Results & Data ([facility]) Vital Signs (Past 12 Hours) Vital Signs Temp Pulse Pulse Pulse Resp BP BP 11/11/21 15:58 36.7 C 90 19 11/11/21 14:46 99 H 11/11/21 14:22 98 H 146/79 H 11/11/21 12:38 11/11/21 11:29 37.2 C 92 H 19 11/11/21 09:36 96 H 139/68 11/11/21 08:02 37 C 96 H 18 139/68 11/11/21 07:10 76 11/11/21 05:16 101 H 132/79 11/11/21 05:13 36.7 C 99 H 16 132/79 BP Pulse Ox O2 Del Method O2 Flow Rate 11/11/21 15:58 126/70 97 Nasal Cannula 2 11/11/21 14:46 11/11/21 14:22 11/11/21 12:38 Nasal Cannula 2 11/11/21 11:29 134/70 99 Nasal Cannula 2 11/11/21 09:36 11/11/21 08:02 97 Nasal Cannula 2 11/11/21 07:10 11/11/21 05:16 11/11/21 05:13 98 Nasal Cannula 2 (1) Rheumatoid arthritis Rheumatoid arthritis location: unspecified site Rheumatoid factor presence: unspecified presence Qualified Code(s): M06.9 - Rheumatoid arthritis, unspecified
[2021-11-11] MEDS ORDERED: STAT IV STA (17:03)
[2021-11-11] MEDS ORDERED: CALCIUM GLUCONATE 10% 1,000 MG in DEXTROSE 5% 50 ML IV ONE (17:30)
[2021-11-11 18:24] LABS: Hematocrit (blood only) 24.8 % (34.1-44.9); Hemoglobin 8.3 g/dl (12.0-16.0); Mean Corpuscular Hemoglobin 33.7 pg (25.0-34.0); Mean Corpuscular Hgb Conc 33.5 g/dL (32.0-36.0); Mean Corpuscular Volume 100.8 fL (80.0-100.0); Mean Platelet Volume 10.3 fL (9.4-12.3); Platelet Count 81 K/uL (130-400); RDW Coefficient of Variation 14.6 % (11.5-14.5); RDW Standard Deviation 53.2 fL (36.4-46.3); Red Blood Count 2.46 M/uL (3.93-5.22); White Blood Count 6.66 K/ul (4.8-10.8)
[2021-11-11] MEDS: amLODIPine BESYLATE 5 MG TAB PO SCH (20:14)
[2021-11-11] MEDS: SENNA 8.6 MG TAB PO SCH (20:15)
[2021-11-11] MEDS: DAPTOmycin 200 MG in SYRINGE 0 ML IV SCH (20:53)
[2021-11-12] MEDS: METOPROLOL TARTRATE 1 MG/ML VIAL IV SCH ×6 (01:03→21:36)
[2021-11-12] MEDS: MEROPENEM 500 MG in SYRINGE 0 ML IV SCH ×3 (04:21→20:14)
[2021-11-12] MEDS: VALPROATE SOD 250 MG in DEXTROSE 5% 50 ML IV SCH (05:38)
[2021-11-12 09:06] LABS: INR 1.5 (0.9-1.1); Prothrombin Time 15.6 Seconds (9.0-12.0)
[2021-11-12 09:20] LABS: Albumin Globulin Ratio 1.2 (0.9-2); Albumin Level 2.6 gm/dl (3.4-5.0); BUN Creatinine Ratio 25.9 (10-20); Bilirubin,Total 0.8 mg/dl (0.2-1.0); Calcium 7.6 mg/dl (8.5-10.1); Creatinine Clr Calc Pharmacy 57.4 ml/min; Est GFR (African American) 100.2 ml/min; Est GFR (Non-African American) 86.4 ml/min; Globulin 2.2 gm/dl (2.5-4.0); Potassium 3.2 mmol/L (3.5-5.1); Total Protein 4.8 gm/dl (6.0-8.3)
[2021-11-12] MEDS: CYANOCOBALAMIN (B-12) 500 MCG TABLET PO SCH (09:44)
[2021-11-12] MEDS: ADVANCED PROBIOTIC 1250 MG CAPSULE PO SCH (09:45)
[2021-11-12] MEDS: DOCUSATE SODIUM 100 MG CAP PO SCH ×2 (09:45→19:20)
[2021-11-12] MEDS: FERROUS SULFATE 325 MG TAB PO SCH ×2 (09:45→19:22)
[2021-11-12] MEDS: FOLIC ACID 1 MG TAB PO SCH (09:45)
[2021-11-12] MEDS: EZETIMIBE 10 MG TABLET PO SCH (09:45)
[2021-11-12] MEDS: predniSONE 5 MG TAB PO SCH (09:45)
[2021-11-12] MEDS: PANTOprazole 40 MG TAB PO SCH (09:45)
[2021-11-12] MEDS: MULTIVITAMIN TAB PO SCH (09:45)
--- NOTE | 2021-11-12 11:29 | Neurology Progress Note ---
Date of Service November 12, 2021 Assessment & Plan (1) Observed seizure-like activity: (2) Acute encephalopathy: Plan This patient has an acute, severe encephalopathy with constant tremor and myoclonic jerks in all 4 limbs and face. EEG, although difficult to evaluate, is consistent with ongoing seizure activity. Therefore, this is a status epilepticus. It is multifocal in origin but tends to be generalized on EEG. After several days of seizure activity this morning she has no seizure activity at all. The patient had no obvious seizure etiology . Her anemia is slightly better this morning and her calcium is still low but slightly better at 7.6. Hypocalcemia could trigger seizures. Unlike the levetiracetam, valproic acid has greatly improved her seizure activity . She may be having postictal state but she has no obvious focal signs. Depakote level was low at 25. She has cellulitis but no growth has suggested sepsis. A meningoencephalitis is a possibility but she is afebrile and does not have an elevated white count she has no other focal neurologic findings. Recommendations: 1. Change IV Depakote to 500 mg every 6 hours 2. Check a Depakote level each morning (as well as other labs to include CBC, electrolytes, calcium, and magnesium). improving the hypocalcemia will likely help her seizure activity 3. Avoid benzodiazepines for now but we may need them depending on her clinical course. 5. consider an MRI of the brain with/without contrast and consider a lumbar puncture. Overall, I spent a total of 35 minutes with this case including review of records, direct evaluation the patient at bedside, and discussion of the case at bedside with RN, and with Dr. Smith including differential diagnosis and treatment options. Admission and Anticipated Discharge Date Admission Date: November 07, 2021 Subjective Patient is calm and not having any seizure activity this morning. She is not speaking but nursing reports that she will open her eyes to voice. She is hard of hearing and did not have her hearing aids in. Blood pressure is 116/61. She is afebrile. Valproic acid level this morning is 25. I could not get the patient to follow commands or speak. Results & Data ([facility]) Vital Signs (Past 12 Hours) Vital Signs Temp Pulse Pulse Resp BP BP BP 11/12/21 08:00 76 11/12/21 11:05 36.8 C 94 H 19 116/61 11/12/21 09:46 113 H 131/71 11/12/21 08:00 36.9 C 113 H 18 131/71 11/12/21 05:38 98 H 108/62 11/12/21 05:36 98 H 108/62 11/12/21 04:19 36.8 C 99 H 14 128/58 L 11/12/21 01:03 109 H 124/65 11/12/21 01:02 109 H 124/65 11/11/21 23:43 99 H 11/11/21 23:43 36.9 C 103 H 18 Pulse Ox O2 Del Method O2 Flow Rate 11/12/21 08:00 11/12/21 11:05 96 Room Air 11/12/21 09:46 11/12/21 08:00 94 Room Air 11/12/21 05:38 11/12/21 05:36 98 Room Air 11/12/21 04:19 97 Nasal Cannula 2 11/12/21 01:03 11/12/21 01:02 11/11/21 23:43 11/11/21 23:43 100 Nasal Cannula 2 Exam (Neuro) Physical Exam: The patient was sleeping on her right side with eyes closed having no involuntary movements in any limb, face, or lips. With loud voice, she opens her eyes and makes eye contact with me. She will not follow one-step commands. We put a hearing aid in but she still did not follow commands or seem to hear. She did not make any vocalizations. When I tried to roll her on her back she started having left upper extremity tremor. This dampened when she went back to sleep. Limb strength and tone seem symmetrical. PG Care Time/CCT Total # of Minutes Spent Total Time Spent with Patient: Total time spent is greater than 50% in coordination of care (as documented) at patient's floor/unit and/or counseling patient: Coding Level of Care Code 76802 Subseq Hosp Care Lvl 3 Diagnoses Observed seizure-like activity R56.9 Acute encephalopathy G93.40 Time Spent (min) 35
[2021-11-12] MEDS ORDERED: VALPROATE SOD 500 MG in DEXTROSE 5% 50 ML IV SCH (12:00)
[2021-11-12] MEDS: LEFLUNOMIDE 10 MG TAB PO SCH (12:15)
[2021-11-12] MEDS ORDERED: POTASSIUM CHLORIDE CRTAB 20 MEQ TABCR PO STA (14:18)
[2021-11-12] MEDS: HEPARIN SOD 5,000 UNIT/0.5 ML VIAL SQ SCH ×2 (15:45→21:35)
[2021-11-12] MEDS: NSS + 20MEQ KCL 20 MEQ/1,000 ML BAG IV SCH (15:47)
[2021-11-12] MEDS: WARFARIN SOD 2.5 MG TAB PO SCH (16:37)
[2021-11-12] MEDS: POTASSIUM CHLORIDE / WTR 10 MEQ/100 ML PLCT IV SCH ×2 (16:53→18:06)
--- NOTE | 2021-11-12 17:50 | Hospitalist Progress Note ---
Date of Service November 12, 2021 Assessment & Plan (1) Cellulitis of left knee: (2) Cutaneous abscess of left knee: (3) CAD (coronary artery disease): (4) S/P TAVR (transcatheter aortic valve replacement): (5) Rheumatoid arthritis: (6) Chronic anemia: (7) Obstructive sleep apnea: (8) Hx pulmonary embolism: Plan This is an 80-year-old female who has a significant past medical history of CAD status post TYLER x2 to mid LAD 03/18/2020, history of aortic stenosis status post TAVR March 2021, HTN, HLD, INA on 2 L of O2 at at bedtime, rheumatoid arthritis on leflunomide and chronic prednisone therapy, chronic anemia, CKD stage III, history of PE/DVT in 2017 anticoagulated on warfarin who presents to ED 2/2 worsening L knee redness and concern for infection. Cellulitis of left knee Abscess of left knee Left knee has been becoming increasingly more red, swollen and warm. Patient does not meet criteria for SIRS or sepsis. She had left knee hematoma drained back in August. CT left knee showed Evidence for soft tissue ulceration with underlying deep subcutaneous fluid collection most characteristic of an abscess. small to moderate-sized joint effusion. Continue IV abx cefepime and daptomycin Ortho on board plan for incision and drainage fluid collection left medial knee whether it be a seroma or abscess will be cultured at that time. Status postincision and drainage, left knee medial abscess. POD #4 on 11/12/2021 2. Debridement of left knee medial ulcer 1.2 cm x 1.2 cm x 0.6 cm including skin, dermis, subcutaneous tissue, and fascia. 3. Irrigation and debridement of left medial knee ulcer measuring 1.9 cm x 1.9 cm x 0.8 cm including skin, dermis, subcutaneous tissue, and fascia. ID on board recommended to change cefepime to meropenem for possible neurotoxicity Continue with Daptomycin Blood cx no growth for now Wound cx grew pin-point present , reincubating Will continue intravenous meropenem for another 24 hours Observed seizure-like activity: Acute encephalopathy: CT head showed no acute intracranial abnormality EEG was markedly abnormal. There was slowing of the background activity consistent with a moderate encephalopathy, and there was generalized potentially epileptogenic activity seen throughout. Neuro on board -appreciate input and recommendation Loading dose Keppra given yesterday and he was starting on Keppra 750mg BID No significant improvement in the tremor after starting keppra dose Keppra changed to Valproic acid Will check the valproic acid level No more seizures observed following administration of Depakote Will change Depakene to 500 mg IV every 6 hourly Monitor Depakote level daily and monitor CBC and electrolytes CAD status post TYLER 03/18/2020 History of TAVR in March 2021 Chronic diastolic heart failure HTN HLD Patient's volume status compensated She denies chest pain or shortness of breath EKG without change Holding Plavix in setting of likely procedure, resume when okay with Ortho Holding statin in setting of daptomycin, resume when able pt refused metoprolol and amlodipine Continue IV lopressor for now while not able to take po intake Rheumatoid arthritis On chronic prednisone therapy as well as leflunomide Previous admissions and discharge summaries reflect patient taking methotrexate Methotrexate is currently not on patient's med reconciliation from [facility] and this was confirmed with facility per external pharmacy looks like last prescribed 10/17/21, therefore not sure where it may have dropped off but may need to be determined if pt needs to be on this medication or not for her RA Will try to reach her rheumatology to confirm if pt is taking the Methotrexate Pt refused her Prednisone yesterday and today. received stress dose steroid INA on 2L O2 at HS Hypothyroidism continue levothyroxine Chronic Anemia hgb dropped to 8. 5 not sure if dilutional hgb today 7.8 today with baseline ~ 10 Continue monitor H/H closely Stable CKD -3 Hgb 0.8 avoid nephrotoxic agents Stable Hx of PE/DVT in 2017 on snf warfarin therapy Vitamin K given on admission INR 1.1 today Resume Coumadin, but patient NPO Consider to start on IV heparin if continue to be unresponsive and hgb stable Dispo: medical, likely to return back to [facility] FULL CODE DVT px will add on heparin sub. PCP: Shereen Admission and Anticipated Discharge Date Admission Date: November 07, 2021 Subjective 11/13/2019 The patient was seen and examined in medical telemetry unit She has been hemodynamically stable but not being communicating verbally No more seizures observed Remains tachycardic without any other distress Review of Systems Review of Systems: Unobtainable due to cognitive status Physical Exam Physical Exam: Lying in bed without any acute distress Constitutional: well developed, well nourished, + ill appearing and average body habitus Eyes: Closed ENMT: external ear and nose normal, oropharynx normal Neck: No neck is stiffness and no rigidity Respiratory: no respiratory distress Auscultation: lungs clear to auscultation bilaterally Cardiovascular: Rate/Rhythm: regular rate, regular rhythm and + tachycardic Heart Sounds: normal S1 and normal S2; no murmur Extremities: no edema Gastrointestinal (Abdomen): Inspection/Auscultation: normal bowel sounds; abdomen not distended Percussion/Palpation: abdomen soft; abdomen nontender Musculoskeletal: Left knee is bandaged. Neurologic: Alert and awake. Has not been communicating. Moves all extremities with painful stimuli Lymphatic: no cervical or axillary lymphadenopathy Results & Data Results & Data ([facility]) Vital Signs (Past 12 Hours) Vital Signs Temp Pulse Pulse Resp BP BP BP 11/12/21 14:54 114 H 11/12/21 14:27 113 H 123/73 11/12/21 12:51 11/12/21 08:00 76 11/12/21 11:05 36.8 C 94 H 19 116/61 11/12/21 09:46 113 H 131/71 11/12/21 08:00 36.9 C 113 H 18 131/71 Pulse Ox O2 Del Method 11/12/21 14:54 11/12/21 14:27 11/12/21 12:51 Room Air 11/12/21 08:00 11/12/21 11:05 96 Room Air 11/12/21 09:46 11/12/21 08:00 94 Room Air Laboratory Results Short CBC 11/11/21 Range/Units 18:00 WBC 6.66 (4.8-10.8) K/ul Hgb 8.3 L (12.0-16.0) g/dl Hct 24.8 L (34.1-44.9) % Plt Count 81 L (130-400) K/uL BMP 11/12/21 08:36 Sodium 138 Potassium 3.2 L Chloride 110 H Carbon Dioxide 19 L BUN 15 Creatinine 0.58 L Glucose 79 Calcium 7.6 L Cardiac Enzymes 11/12/21 11/12/21 Range/Units 08:36 08:36 Total Creatine Kinase 114 Cancelled (26-192) U/L Liver Function 11/12/21 Range/Units 08:36 Total Bilirubin 0.8 (0.2-1.0) mg/dl AST 34 (13-39) U/L ALT 12 (7-52) U/L Alkaline Phosphatase 72 (34-104) U/L Albumin 2.6 L (3.4-5.0) gm/dl Medications Administered Current Inpatient Medications Acetaminophen (Acetaminophen 325 Mg Tab) 650 mg PO Q4H PRN PRN Reason: pain/fever Stop: 12/07/21 22:05 Al Hydrox/Mg Hydrox/Simethicone (Aluminum/Magnesium Susp 30 Ml Udc) 30 ml PO Q6H PRN PRN Reason: Dyspepsia Stop: 12/07/21 22:05 Amlodipine Besylate (Amlodipine Besylate 5 Mg Tab) 5 mg PO HS [facility] Stop: 12/07/21 22:05 Last Admin: 11/11/21 20:14 Dose: Not Given Bisacodyl (Bisacodyl 10 Mg Supp) 10 mg GA DAILY PRN PRN Reason: Constipation Stop: 12/09/21 13:46 Cyanocobalamin (Cyanocobalamin (B-12) 500 Mcg Tablet) 500 mcg PO DAILY [facility]IE Stop: 12/08/21 08:59 Last Admin: 11/12/21 09:44 Dose: Not Given Docusate Sodium (Docusate Sodium 100 Mg Cap) 100 mg PO BID STEPHANIE Stop: 12/09/21 20:59 Last Admin: 11/12/21 09:45 Dose: Not Given Ezetimibe (Ezetimibe 10 Mg Tablet) 10 mg PO QAM STEPHANIE Stop: 12/08/21 08:59 Last Admin: 11/12/21 09:45 Dose: Not Given Ferrous Sulfate (Ferrous Sulfate 325 Mg Tab) 325 mg PO BID STEPHANIE Stop: 12/07/21 22:05 Last Admin: 11/12/21 09:45 Dose: Not Given Folic Acid (Folic Acid 1 Mg Tab) 2 mg PO QAM STEPHANIE Stop: 12/08/21 08:59 Last Admin: 11/12/21 09:45 Dose: Not Given Heparin Sodium (Porcine) (Heparin Sod 5,000 Unit/0.5 Ml Vial) 5,000 units SQ Q8 STEPHANIE Stop: 12/12/21 13:59 Last Admin: 11/12/21 15:45 Dose: 5,000 units Daptomycin 200 mg/ Syringe 4 mls @ 2 mls/min IV Q24H STEPHANIE; Protocol Stop: 11/15/21 19:59 Last Admin: 11/11/21 20:53 Dose: 2 mls/min Levothyroxine Sodium 25 mcg/ (Syringe) 1.25 mls @ 0.625 mls/min IV Q72H STEPHANIE; Protocol Stop: 12/10/21 08:59 Last Admin: 11/10/21 08:57 Dose: 0.625 mls/min Meropenem 500 mg/ Syringe 10 mls @ 2 mls/min IV Q8H STEPHANIE; Protocol Stop: 11/13/21 10:59 Last Admin: 11/12/21 12:28 Dose: 2 mls/min Potassium Chloride/Sodium Chloride (Normal Saline W/20 Meq Kcl) 20 meq in 1,000 mls @ 100 mls/hr IV .Q10H [facility]; Protocol Stop: 11/13/21 21:29 Last Infusion: 11/12/21 16:53 Dose: 0 mls/hr Valproic Acid 500 mg/ Dextrose 55 mls @ 55 mls/hr IV Q6H [facility] Stop: 12/12/21 15:14 Potassium Chloride (K Chandana / Wtr) 10 meq in 100 mls @ 100 mls/hr IV Q1H [facility] Stop: 11/12/21 18:29 Last Admin: 11/12/21 16:53 Dose: 100 mls/hr Lactobacillus Acidophilus (Advanced Probiotic 1250 Mg Capsule) 2 cap PO DAILY [facility] Stop: 12/08/21 08:59 Last Admin: 11/12/21 09:45 Dose: Not Given Leflunomide (Leflunomide 10 Mg Tab) 20 mg PO DAILY@1200 [facility] Stop: 12/08/21 11:59 Last Admin: 11/12/21 12:15 Dose: Not Given Magnesium Hydroxide (Magnesium Hydroxide Susp 30 Ml Udc) 30 ml PO Q6H PRN PRN Reason: Constipation Stop: 12/09/21 13:46 Metoclopramide HCl (Metoclopramide Hcl Inj 5 Mg/Ml 2 Ml Vial) 10 mg IV Q6H PRN PRN Reason: Nausea And Vomiting Stop: 12/09/21 13:46 Last Admin: 11/10/21 17:55 Dose: 10 mg Metoprolol Tartrate (Metoprolol Tartrate 1 Mg/Ml Vial) 2.5 mg IV Q4H [facility] Stop: 12/10/21 13:44 Last Admin: 11/12/21 14:27 Dose: 2.5 mg Mirtazapine (Mirtazapine Tab 15 Mg Tab) 15 mg PO [facility] Stop: 12/07/21 22:05 Last Admin: 11/09/21 20:20 Dose: Not Given Multivitamins (Multivitamin Tab) 1 [facility] Stop: 12/10/21 08:59 Last Admin: 11/12/21 09:45 Dose: Not Given Naloxone HCl (Naloxone Hcl 0.4 Mg/1 Ml Vial/Carp) 0.1 mg IV Q5M PRN PRN Reason: Oversedation/Resp Depression Stop: 12/09/21 13:46 Ondansetron HCl (Ondansetron Inj 2 Mg/Ml 2 Ml Vial) 4 mg IV Q6H PRN PRN Reason: Nausea And Vomiting Stop: 12/09/21 13:46 Pantoprazole Sodium (Pantoprazole 40 Mg Tab) 40 mg PO [facility] Stop: 12/08/21 08:59 Last Admin: 11/12/21 09:45 Dose: Not Given Polyethylene Glycol (Polyethylene (Miralax) 17 Gm Pack) 17 gm PO DAILY PRN PRN Reason: Constipation Stop: 12/07/21 22:05 Prednisone (Prednisone 5 Mg Tab) 5 mg PO DAILY [facility] Stop: 12/08/21 08:59 Last Admin: 11/12/21 09:45 Dose: Not Given Sennosides (Senna 8.6 Mg Tab) 17.2 mg PO [facility] Stop: 12/09/21 20:59 Last Admin: 11/11/21 20:15 Dose: Not Given Tramadol HCl (Tramadol Hcl 50 Mg Tablet) 25 mg PO Q6H PRN PRN Reason: pain (scale score 7-10) Stop: 12/07/21 22:05 Last Admin: 11/08/21 04:18 Dose: 25 mg Warfarin Sodium (Warfarin Sod 1.25 Mg Tab) 1.25 mg PO TuTh@1600 [facility] Stop: 12/11/21 15:59 Last Admin: 11/11/21 15:52 Dose: Not Given Warfarin Sodium (Warfarin Sod 2.5 Mg Tab) 2.5 mg PO SuMoWeFrSa@1600 [facility] Stop: 12/09/21 15:59 Last Admin: 11/12/21 16:37 Dose: Not Given (1) Rheumatoid arthritis Rheumatoid arthritis location: unspecified site Rheumatoid factor presence: unspecified presence Qualified Code(s): M06.9 - Rheumatoid arthritis, unspecified
[2021-11-12] MEDS ORDERED: Nursing to Pharmacy Communication SCH (19:00)
[2021-11-12] MEDS: VALPROATE SOD 500 MG in DEXTROSE 5% 50 ML IV SCH (19:18)
[2021-11-12] MEDS: amLODIPine BESYLATE 5 MG TAB PO SCH (19:21)
[2021-11-12] MEDS: SENNA 8.6 MG TAB PO SCH (19:22)
[2021-11-12] MEDS: DAPTOmycin 200 MG in SYRINGE 0 ML IV SCH (20:13)
[2021-11-13] MEDS: NSS + 20MEQ KCL 20 MEQ/1,000 ML BAG IV SCH ×2 (01:48→19:27)
[2021-11-13] MEDS: VALPROATE SOD 500 MG in DEXTROSE 5% 50 ML IV SCH ×4 (01:48→22:15)
[2021-11-13] MEDS: METOPROLOL TARTRATE 1 MG/ML VIAL IV SCH ×6 (01:49→20:53)
[2021-11-13] MEDS: MEROPENEM 500 MG in SYRINGE 0 ML IV SCH ×2 (03:08→12:12)
[2021-11-13] MEDS: HEPARIN SOD 5,000 UNIT/0.5 ML VIAL SQ SCH ×3 (05:53→20:53)
[2021-11-13 07:20] LABS: Basophils # (auto) 0.04 K/uL (0-0.2); Basophils % (auto) 0.9 %; Eosinophils # (auto) 0.14 K/uL (0-0.50); Hematocrit (blood only) 26.8 % (34.1-44.9); Hemoglobin 8.7 g/dl (12.0-16.0); Immature Granulocytes # (auto) 0.04 K/uL (0.00-0.02); Immature Granulocytes % (auto) 0.9 %; Lymphocytes # (auto) 0.96 K/uL (1.2-3.4); Lymphocytes % (auto) 20.8 %; Mean Platelet Volume 10.9 fL (9.4-12.3); Monocytes # (auto) 0.55 K/uL (0.24-0.82); Monocytes % (auto) 11.9 %; Neutrophils # (auto) 2.89 K/uL (1.4-6.5); Neutrophils % (auto) 62.5 %; Platelet Count 93 K/uL (130-400); White Blood Count 4.62 K/ul (4.8-10.8)
[2021-11-13 07:30] LABS: INR 1.4 (0.9-1.1); Prothrombin Time 14.3 Seconds (9.0-12.0)
[2021-11-13 07:41] LABS: BUN Creatinine Ratio 24.5 (10-20); Calcium 7.6 mg/dl (8.5-10.1); Creatinine Clr Calc Pharmacy 62.8 ml/min; Est GFR (African American) 103.2 ml/min; Magnesium 1.8 mg/dl (1.7-2.4); Potassium 3.7 mmol/L (3.5-5.1)
[2021-11-13 07:43] LABS: Mean Corpuscular Hemoglobin 33.2 pg (25.0-34.0); Mean Corpuscular Hgb Conc 32.5 g/dL (32.0-36.0); Mean Corpuscular Volume 102.3 fL (80.0-100.0); RDW Coefficient of Variation 14.6 % (11.5-14.5); RDW Standard Deviation 54.2 fL (36.4-46.3); Red Blood Count 2.62 M/uL (3.93-5.22)
[2021-11-13] MEDS: CYANOCOBALAMIN (B-12) 500 MCG TABLET PO SCH (08:40)
[2021-11-13] MEDS: EZETIMIBE 10 MG TABLET PO SCH (08:41)
[2021-11-13] MEDS: FERROUS SULFATE 325 MG TAB PO SCH ×2 (08:41→20:58)
[2021-11-13] MEDS: FOLIC ACID 1 MG TAB PO SCH (08:41)
[2021-11-13] MEDS: MULTIVITAMIN TAB PO SCH (08:42)
[2021-11-13] MEDS: ADVANCED PROBIOTIC 1250 MG CAPSULE PO SCH (08:42)
[2021-11-13] MEDS: PANTOprazole 40 MG TAB PO SCH (08:42)
[2021-11-13] MEDS: predniSONE 5 MG TAB PO SCH (08:43)
[2021-11-13] MEDS: DOCUSATE SODIUM 100 MG CAP PO SCH ×2 (09:42→21:20)
[2021-11-13] MEDS: LEVOTHYROXINE SODIUM 25 MCG in SYRINGE 0 ML IV SCH (09:42)
--- NOTE | 2021-11-13 10:08 | Communication Note ---
Date of Service: November 13, 2021 patient was discussed with Dr Perez neurology. He felt patient was stable now and can follow up with neurology [facility] after discharge. patient was not seen today. I have discussed above patient with Dr Jasmin Walker, neurology
[2021-11-13] MEDS: LEFLUNOMIDE 10 MG TAB PO SCH (12:11)
[2021-11-13] MEDS: WARFARIN SOD 1.25 MG TAB PO SCH (15:38)
--- NOTE | 2021-11-13 15:55 | Hospitalist Progress Note ---
Date of Service November 13, 2021 Assessment & Plan (1) Cellulitis of left knee: (2) Cutaneous abscess of left knee: (3) CAD (coronary artery disease): (4) S/P TAVR (transcatheter aortic valve replacement): (5) Rheumatoid arthritis: (6) Chronic anemia: (7) Obstructive sleep apnea: (8) Hx pulmonary embolism: Plan This is an 80-year-old female who has a significant past medical history of CAD status post TYLER x2 to mid LAD 03/18/2020, history of aortic stenosis status post TAVR March 2021, HTN, HLD, INA on 2 L of O2 at at bedtime, rheumatoid arthritis on leflunomide and chronic prednisone therapy, chronic anemia, CKD stage III, history of PE/DVT in 2017 anticoagulated on warfarin who presents to ED 2/2 worsening L knee redness and concern for infection. Cellulitis of left knee Abscess of left knee Left knee has been becoming increasingly more red, swollen and warm. Patient does not meet criteria for SIRS or sepsis. She had left knee hematoma drained back in August. CT left knee showed Evidence for soft tissue ulceration with underlying deep subcutaneous fluid collection most characteristic of an abscess. small to moderate-sized joint effusion. Continue IV abx cefepime and daptomycin Ortho on board plan for incision and drainage fluid collection left medial knee whether it be a seroma or abscess will be cultured at that time. Left knee wound culture came back negative Discussed with the ID for suggestions of antibiotic and the duration Status postincision and drainage, left knee medial abscess. POD #4 on 11/12/2021 2. Debridement of left knee medial ulcer 1.2 cm x 1.2 cm x 0.6 cm including skin, dermis, subcutaneous tissue, and fascia. 3. Irrigation and debridement of left medial knee ulcer measuring 1.9 cm x 1.9 cm x 0.8 cm including skin, dermis, subcutaneous tissue, and fascia. ID on board recommended to change cefepime to meropenem for possible neurotoxicity Continue with Daptomycin Blood cx no growth for now Wound cx grew pin-point present , reincubating-negative culture Will continue intravenous meropenem for another 24 hours Will get ID recommendations for further issues with antibiotic Observed seizure-like activity: Acute encephalopathy: CT head showed no acute intracranial abnormality EEG was markedly abnormal. There was slowing of the background activity consistent with a moderate encephalopathy, and there was generalized potentially epileptogenic activity seen throughout. Neuro on board -appreciate input and recommendation Loading dose Keppra given yesterday and he was starting on Keppra 750mg BID No significant improvement in the tremor after starting keppra dose Keppra changed to Valproic acid Will check the valproic acid level No more seizures observed following administration of Depakote Will change Depakene to 500 mg IV every 6 hourly Monitor Depakote level daily and monitor CBC and electrolytes Much improved and trying to communicate normally CAD status post TYLER 03/18/2020 History of TAVR in March 2021 Chronic diastolic heart failure HTN HLD Patient's volume status compensated She denies chest pain or shortness of breath EKG without change Holding Plavix in setting of likely procedure, resume when okay with Ortho Holding statin in setting of daptomycin, resume when able pt refused metoprolol and amlodipine Continue IV lopressor for now while not able to take po intake Rheumatoid arthritis On chronic prednisone therapy as well as leflunomide Previous admissions and discharge summaries reflect patient taking methotrexate Methotrexate is currently not on patient's med reconciliation from [facility] and this was confirmed with facility per external pharmacy looks like last prescribed 10/17/21, therefore not sure where it may have dropped off but may need to be determined if pt needs to be on this medication or not for her RA Will try to reach her rheumatology to confirm if pt is taking the Methotrexate Pt refused her Prednisone yesterday and today. received stress dose steroid INA on 2L O2 at HS Hypothyroidism continue levothyroxine Chronic Anemia hgb dropped to 8. 5 not sure if dilutional hgb today 7.8 today with baseline ~ 10 Continue monitor H/H closely Stable CKD -3 Hgb 0.8 avoid nephrotoxic agents Stable Hx of PE/DVT in 2017 on buttermaker helper warfarin therapy Vitamin K given on admission INR 1.1 today Resume Coumadin, but patient NPO Consider to start on IV heparin if continue to be unresponsive and hgb stable Dispo: medical, likely to return back to [facility] FULL CODE DVT px will add on heparin sub. PCP: Shereen Admission and Anticipated Discharge Date Admission Date: November 07, 2021 Subjective 11/13/2019 The patient was seen and examined in medical telemetry unit She has been hemodynamically stable but not being communicating verbally No more seizures observed Remains tachycardic without any other distress 11/13/2021 The patient was seen and examined in medical telemetry unit She has been feeling much better and has been opening her eyes and communicating reasonably Still has pain in the left knee but not in any acute distress Review of Systems Review of Systems: Unobtainable due to cognitive status Physical Exam Physical Exam: Lying in bed without any acute distress Constitutional: well developed, well nourished, + ill appearing and average body habitus ENMT: external ear and nose normal, oropharynx normal Respiratory: no respiratory distress Auscultation: lungs clear to auscultation bilaterally Cardiovascular: Rate/Rhythm: regular rate, regular rhythm and + tachycardic Heart Sounds: normal S1 and normal S2; no murmur Extremities: no edema Gastrointestinal (Abdomen): Inspection/Auscultation: normal bowel sounds; abdomen not distended Percussion/Palpation: abdomen soft; abdomen nontender Musculoskeletal: No acute arthritis in any joint Neurologic: Alert and awake. Generally weak but has been communicating reasonably Lymphatic: no cervical or axillary lymphadenopathy Results & Data Results & Data ([facility]) Vital Signs (Past 12 Hours) Vital Signs Temp Pulse Pulse Resp BP BP BP 11/13/21 15:48 36.5 C 93 H 18 133/83 11/13/21 10:58 36.1 C L 87 18 113/72 11/13/21 08:00 86 11/13/21 09:42 97 H 139/81 11/13/21 08:15 36.3 C L 97 H 18 139/81 11/13/21 05:53 85 134/65 Pulse Ox O2 Del Method 11/13/21 15:48 98 Room Air 11/13/21 10:58 98 Room Air 11/13/21 08:00 11/13/21 09:42 11/13/21 08:15 100 Room Air 11/13/21 05:53 Laboratory Results Short CBC 11/13/21 Range/Units 06:54 WBC 4.62 L (4.8-10.8) K/ul Hgb 8.7 L (12.0-16.0) g/dl Hct 26.8 L (34.1-44.9) % Plt Count 93 L (130-400) K/uL BMP 11/13/21 06:54 Sodium 140 Potassium 3.7 Chloride 113 H Carbon Dioxide 18 L BUN 13 Creatinine 0.53 L Glucose 73 Calcium 7.6 L Medications Administered Current Inpatient Medications Acetaminophen (Acetaminophen 325 Mg Tab) 650 mg PO Q4H PRN PRN Reason: pain/fever Stop: 12/07/21 22:05 Al Hydrox/Mg Hydrox/Simethicone (Aluminum/Magnesium Susp 30 Ml Udc) 30 ml PO Q6H PRN PRN Reason: Dyspepsia Stop: 12/07/21 22:05 Amlodipine Besylate (Amlodipine Besylate 5 Mg Tab) 5 mg PO HS [facility] Stop: 12/07/21 22:05 Last Admin: 11/12/21 19:21 Dose: Not Given Bisacodyl (Bisacodyl 10 Mg Supp) 10 mg LA DAILY PRN PRN Reason: Constipation Stop: 12/09/21 13:46 Cyanocobalamin (Cyanocobalamin (B-12) 500 Mcg Tablet) 500 mcg PO DAILY STEPHANIE Stop: 12/08/21 08:59 Last Admin: 11/13/21 08:40 Dose: 500 mcg Docusate Sodium (Docusate Sodium 100 Mg Cap) 100 mg PO BID [facility] Stop: 12/09/21 20:59 Last Admin: 11/13/21 09:42 Dose: Not Given Ezetimibe (Ezetimibe 10 Mg Tablet) 10 mg PO QAM [facility] Stop: 12/08/21 08:59 Last Admin: 11/13/21 08:41 Dose: 10 mg Ferrous Sulfate (Ferrous Sulfate 325 Mg Tab) 325 mg PO BID STEPHANIE Stop: 12/07/21 22:05 Last Admin: 11/13/21 08:41 Dose: 325 mg Folic Acid (Folic Acid 1 Mg Tab) 2 mg PO QAM [facility] Stop: 12/08/21 08:59 Last Admin: 11/13/21 08:41 Dose: 2 mg Heparin Sodium (Porcine) (Heparin Sod 5,000 Unit/0.5 Ml Vial) 5,000 units SQ Q8 STEPHANIE Stop: 12/12/21 13:59 Last Admin: 11/13/21 15:38 Dose: 5,000 units Daptomycin 200 mg/ Syringe 4 mls @ 2 mls/min IV Q24H [facility]; Protocol Stop: 11/15/21 19:59 Last Admin: 11/12/21 20:13 Dose: 2 mls/min Levothyroxine Sodium 25 mcg/ (Syringe) 1.25 mls @ 0.625 mls/min IV Q72H STEPHANIE; Protocol Stop: 12/10/21 08:59 Last Admin: 11/13/21 09:42 Dose: 0.625 mls/min Meropenem 500 mg/ Syringe 10 mls @ 2 mls/min IV Q8H STEPHANIE; Protocol Stop: 11/14/21 10:59 Last Admin: 11/13/21 12:12 Dose: 2 mls/min Potassium Chloride/Sodium Chloride (Normal Saline W/20 Meq Kcl) 20 meq in 1,000 mls @ 100 mls/hr IV .Q10H STEPHANIE; Protocol Stop: 11/13/21 21:29 Last Admin: 11/13/21 01:48 Dose: 100 mls/hr Valproic Acid 500 mg/ Dextrose 55 mls @ 55 mls/hr IV Q8H STEPHANIE Stop: 12/13/21 13:59 Last Infusion: 11/13/21 15:37 Dose: Infused Lactobacillus Acidophilus (Advanced Probiotic 1250 Mg Capsule) 2 cap PO DAILY STEPHANIE Stop: 12/08/21 08:59 Last Admin: 11/13/21 08:42 Dose: 2 cap Leflunomide (Leflunomide 10 Mg Tab) 20 mg PO DAILY@1200 STEPHANIE Stop: 12/08/21 11:59 Last Admin: 11/13/21 12:11 Dose: 20 mg Magnesium Hydroxide (Magnesium Hydroxide Susp 30 Ml Udc) 30 ml PO Q6H PRN PRN Reason: Constipation Stop: 12/09/21 13:46 Metoclopramide HCl (Metoclopramide Hcl Inj 5 Mg/Ml 2 Ml Vial) 10 mg IV Q6H PRN PRN Reason: Nausea And Vomiting Stop: 12/09/21 13:46 Last Admin: 11/10/21 17:55 Dose: 10 mg Metoprolol Tartrate (Metoprolol Tartrate 1 Mg/Ml Vial) 2.5 mg IV Q4H [facility] Stop: 12/10/21 13:44 Last Admin: 11/13/21 14:13 Dose: 2.5 mg Mirtazapine (Mirtazapine Tab 15 Mg Tab) 15 mg PO HS [facility] Stop: 12/07/21 22:05 Last Admin: 11/09/21 20:20 Dose: Not Given Multivitamins (Multivitamin Tab) 1 tab PO QAM [facility] Stop: 12/10/21 08:59 Last Admin: 11/13/21 08:42 Dose: 1 tab Naloxone HCl (Naloxone Hcl 0.4 Mg/1 Ml Vial/Carp) 0.1 mg IV Q5M PRN PRN Reason: Oversedation/Resp Depression Stop: 12/09/21 13:46 Ondansetron HCl (Ondansetron Inj 2 Mg/Ml 2 Ml Vial) 4 mg IV Q6H PRN PRN Reason: Nausea And Vomiting Stop: 12/09/21 13:46 Pantoprazole Sodium (Pantoprazole 40 Mg Tab) 40 mg PO QAM [facility] Stop: 12/08/21 08:59 Last Admin: 11/13/21 08:42 Dose: 40 mg Polyethylene Glycol (Polyethylene (Miralax) 17 Gm Pack) 17 gm PO DAILY PRN PRN Reason: Constipation Stop: 12/07/21 22:05 Prednisone (Prednisone 5 Mg Tab) 5 mg PO DAILY [facility] Stop: 12/08/21 08:59 Last Admin: 11/13/21 08:43 Dose: 5 mg Sennosides (Senna 8.6 Mg Tab) 17.2 mg PO HS [facility] Stop: 12/09/21 20:59 Last Admin: 11/12/21 19:22 Dose: Not Given Tramadol HCl (Tramadol Hcl 50 Mg Tablet) 25 mg PO Q6H PRN PRN Reason: pain (scale score 7-10) Stop: 12/07/21 22:05 Last Admin: 11/08/21 04:18 Dose: 25 mg Warfarin Sodium (Warfarin Sod 1.25 Mg Tab) 1.25 mg PO TuTh@1600 [facility] Stop: 12/11/21 15:59 Last Admin: 11/13/21 15:38 Dose: 1.25 mg Warfarin Sodium (Warfarin Sod 2.5 Mg Tab) 2.5 mg PO SuMoWeFrSa@1600 [facility] Stop: 12/09/21 15:59 Last Admin: 11/12/21 16:37 Dose: Not Given (1) Rheumatoid arthritis Rheumatoid arthritis location: unspecified site Rheumatoid factor presence: unspecified presence Qualified Code(s): M06.9 - Rheumatoid arthritis, unspecified
[2021-11-13] MEDS: DAPTOmycin 200 MG in SYRINGE 0 ML IV SCH (20:52)
[2021-11-13] MEDS: ACETAMINOPHEN 325 MG TAB PO PRN (20:53)
[2021-11-13] MEDS: amLODIPine BESYLATE 5 MG TAB PO SCH (20:58)
[2021-11-13] MEDS: SENNA 8.6 MG TAB PO SCH (20:58)
[2021-11-14] MEDS: METOPROLOL TARTRATE 1 MG/ML VIAL IV SCH ×5 (00:47→15:35)
[2021-11-14] MEDS: VALPROATE SOD 500 MG in DEXTROSE 5% 50 ML IV SCH ×4 (06:14→22:32)
[2021-11-14] MEDS: HEPARIN SOD 5,000 UNIT/0.5 ML VIAL SQ SCH ×3 (06:15→20:58)
[2021-11-14 09:08] LABS: Basophils # (auto) 0.07 K/uL (0-0.2); Basophils % (auto) 1.6 %; Eosinophils # (auto) 0.08 K/uL (0-0.50); Eosinophils % (auto) 1.9 %; Hematocrit (blood only) 24.1 % (34.1-44.9); Immature Granulocytes # (auto) 0.06 K/uL (0.00-0.02); Immature Granulocytes % (auto) 1.4 %; Lymphocytes # (auto) 1.05 K/uL (1.2-3.4); Lymphocytes % (auto) 24.4 %; Mean Platelet Volume 10.5 fL (9.4-12.3); Monocytes # (auto) 0.85 K/uL (0.24-0.82); Monocytes % (auto) 19.8 %; Neutrophils # (auto) 2.19 K/uL (1.4-6.5); Neutrophils % (auto) 50.9 %; Platelet Count 114 K/uL (130-400)
[2021-11-14 09:26] LABS: INR 1.5 (0.9-1.1); Prothrombin Time 16.1 Seconds (9.0-12.0)
[2021-11-14 09:29] LABS: BUN Creatinine Ratio 22.6 (10-20); Calcium 7.6 mg/dl (8.5-10.1); Creatinine Clr Calc Pharmacy 62.8 ml/min; Est GFR (African American) 103.2 ml/min; Magnesium 1.8 mg/dl (1.7-2.4); Potassium 3.7 mmol/L (3.5-5.1)
[2021-11-14 09:45] LABS: Echinocytes 2+; Mean Corpuscular Hemoglobin 33.8 pg (25.0-34.0); Mean Corpuscular Hgb Conc 33.2 g/dL (32.0-36.0); Mean Corpuscular Volume 101.7 fL (80.0-100.0); Poikilocytosis Present; Polychromasia 1+; RDW Coefficient of Variation 14.8 % (11.5-14.5); Red Blood Count 2.37 M/uL (3.93-5.22)
[2021-11-14] MEDS: predniSONE 5 MG TAB PO SCH (10:09)
[2021-11-14] MEDS: MULTIVITAMIN TAB PO SCH (10:10)
[2021-11-14] MEDS: CYANOCOBALAMIN (B-12) 500 MCG TABLET PO SCH (10:10)
[2021-11-14] MEDS: FERROUS SULFATE 325 MG TAB PO SCH ×2 (10:10→20:50)
[2021-11-14] MEDS: PANTOprazole 40 MG TAB PO SCH ×2 (10:10→10:44)
[2021-11-14] MEDS: EZETIMIBE 10 MG TABLET PO SCH (10:10)
[2021-11-14] MEDS: ADVANCED PROBIOTIC 1250 MG CAPSULE PO SCH ×2 (10:11→10:44)
[2021-11-14] MEDS: FOLIC ACID 1 MG TAB PO SCH (10:11)
[2021-11-14] MEDS: DOCUSATE SODIUM 100 MG CAP PO SCH ×2 (10:45→20:50)
[2021-11-14] MEDS ORDERED: GADOBUTROL 65ML VIAL IV ONE (12:51)
[2021-11-14] MEDS: LEFLUNOMIDE 10 MG TAB PO SCH (12:58)
--- NOTE | 2021-11-14 13:14 | Magnetic Resonance Report ---
MR brain wo/w con CLINICAL HISTORY: r/o intracranial infection,unresponsiveness TECHNIQUE: Multiplanar and multisequence MR images of the brain were obtained prior to and following administration of gadolinium contrast. Comparison: Comparison is made to MRI brain 09/03/2021 FINDINGS: Exam is limited by patient motion. No abnormal restricted diffusion is identified. Foci of T2 and FLAIR hyperintensity are noted in the paraventricular areas consistent with chronic small vessel ischemic disease. Ex vacuo ventriculomegal y and sulcal enlargement is noted compatible with diffuse encephalomalacia. No mass or abnormal enhan cement is seen. There is no mass effect or midline shift. There is no evidence of acute intraparenchy mal hemorrhage. No extra axial fluid collections are seen. The corpus callosum, pituitary gland, and cerebellar tonsils appear grossly unremarkable. Flow voids of the major intracranial arterial vessels are identified. The imaged portions of the para nasal sinuses, mastoid air cells, and orbits are unremarkable. IMPRESSION: Limited study due to patient motion most pronounced in the postcontrast sequences. No evidence of acu te infarct or gross enhancement to suggest infectious process. ACT 112: Negative or not required by law. Electronically signed by: Leland Wayne M.D. 11/14/2021 1:12 PM
[2021-11-14] MEDS: WARFARIN SOD 2.5 MG TAB PO SCH (15:57)
--- NOTE | 2021-11-14 16:31 | Hospitalist Progress Note ---
Date of Service November 14, 2021 Assessment & Plan (1) Cellulitis of left knee: (2) Cutaneous abscess of left knee: (3) CAD (coronary artery disease): (4) S/P TAVR (transcatheter aortic valve replacement): (5) Rheumatoid arthritis: (6) Chronic anemia: (7) Obstructive sleep apnea: (8) Hx pulmonary embolism: Plan This is an 80-year-old female who has a significant past medical history of CAD status post TYLER x2 to mid LAD 03/18/2020, history of aortic stenosis status post TAVR March 2021, HTN, HLD, INA on 2 L of O2 at at bedtime, rheumatoid arthritis on leflunomide and chronic prednisone therapy, chronic anemia, CKD stage III, history of PE/DVT in 2017 anticoagulated on warfarin who presents to ED 2/2 worsening L knee redness and concern for infection. Cellulitis of left knee Abscess of left knee Left knee has been becoming increasingly more red, swollen and warm. Patient does not meet criteria for SIRS or sepsis. She had left knee hematoma drained back in August. CT left knee showed Evidence for soft tissue ulceration with underlying deep subcutaneous fluid collection most characteristic of an abscess. small to moderate-sized joint effusion. Continue IV abx cefepime and daptomycin Ortho on board plan for incision and drainage fluid collection left medial knee whether it be a seroma or abscess will be cultured at that time. Left knee wound culture came back negative Discussion with the ID has been ongoing for use of suggested antibiotic and duration Status postincision and drainage, left knee medial abscess. POD #4 on 11/12/2021 2. Debridement of left knee medial ulcer 1.2 cm x 1.2 cm x 0.6 cm including skin, dermis, subcutaneous tissue, and fascia. 3. Irrigation and debridement of left medial knee ulcer measuring 1.9 cm x 1.9 cm x 0.8 cm including skin, dermis, subcutaneous tissue, and fascia. ID on board recommended to change cefepime to meropenem for possible neurotoxicity Continue with Daptomycin Blood cx no growth for now Wound cx grew pin-point present , reincubating-negative culture Will continue intravenous meropenem for another 24 hours Will get ID recommendations for further issues with antibiotic Meropenem has been discontinued and daptomycin is continued for the time being Observed seizure-like activity: Acute encephalopathy: CT head showed no acute intracranial abnormality EEG was markedly abnormal. There was slowing of the background activity consistent with a moderate encephalopathy, and there was generalized potentially epileptogenic activity seen throughout. Neuro on board -appreciate input and recommendation Loading dose Keppra given yesterday and he was starting on Keppra 750mg BID No significant improvement in the tremor after starting keppra dose Keppra changed to Valproic acid Will check the valproic acid level No more seizures observed following administration of Depakote Will change Depakene to 500 mg IV every 6 hourly Monitor Depakote level daily and monitor CBC and electrolytes Much improved and trying to communicate normally MRI of the brain has been negative for any infection and/or stroke Depakote level is 39 CAD status post TYLER 03/18/2020 History of TAVR in March 2021 Chronic diastolic heart failure HTN HLD Patient's volume status compensated She denies chest pain or shortness of breath EKG without change Holding Plavix in setting of likely procedure, resume when okay with Ortho Holding statin in setting of daptomycin, resume when able pt refused metoprolol and amlodipine Continue IV lopressor for now while not able to take po intake Rheumatoid arthritis On chronic prednisone therapy as well as leflunomide Previous admissions and discharge summaries reflect patient taking methotrexate Methotrexate is currently not on patient's med reconciliation from [facility] and this was confirmed with facility per external pharmacy looks like last prescribed 10/17/21, therefore not sure where it may have dropped off but may need to be determined if pt needs to be on this medication or not for her RA Will try to reach her rheumatology to confirm if pt is taking the Methotrexate Pt refused her Prednisone yesterday and today. received stress dose steroid INA on 2L O2 at HS Hypothyroidism continue levothyroxine Chronic Anemia hgb dropped to 8. 5 not sure if dilutional hgb today 7.8 today with baseline ~ 10 Continue monitor H/H closely Stable CKD -3 Hgb 0.8 avoid nephrotoxic agents Stable Hx of PE/DVT in 2017 on assisted warfarin therapy Vitamin K given on admission INR 1.1 today Resume Coumadin, but patient NPO Consider to start on IV heparin if continue to be unresponsive and hgb stable INR is 1.5 today Dispo: medical, likely to return back to [facility] FULL CODE DVT px will add on heparin sub. PCP: Shereen Admission and Anticipated Discharge Date Admission Date: November 07, 2021 Subjective 11/13/2019 The patient was seen and examined in medical telemetry unit She has been hemodynamically stable but not being communicating verbally No more seizures observed Remains tachycardic without any other distress 11/13/2021 The patient was seen and examined in medical telemetry unit She has been feeling much better and has been opening her eyes and communicating reasonably Still has pain in the left knee but not in any acute distress 11/14/2021 The patient was seen and examined in medical telemetry unit He has been much improved today and has been communicating reasonably Has left knee pain but denies any other symptoms No fever and or chills and no more seizures Review of Systems Review of Systems: All systems reviewed and are unremarkable except as noted below Physical Exam Physical Exam: Lying in bed without any acute distress Constitutional: well developed, well nourished, + ill appearing and average gasper dy habitus ENMT: external ear and nose normal, oropharynx normal Respiratory: no respiratory distress Auscultation: lungs clear to auscultation bilaterally Cardiovascular: Rate/Rhythm: regular rate, regular rhythm and + tachycardic Heart Sounds: normal S1 and normal S2; no murmur Extremities: no edema Gastrointestinal (Abdomen): Inspection/Auscultation: normal bowel sounds; abdomen not distended Percussion/Palpation: abdomen soft; abdomen nontender Musculoskeletal: No acute arthritis in any joint except left knee which is still painful due to I and D not involving the joint Neurologic: Alert and awake. Communicating. Moving all limbs Lymphatic: no cervical or axillary lymphadenopathy Results & Data Results & Data ([facility]) Vital Signs (Past 12 Hours) Vital Signs Temp Pulse Pulse Resp BP BP BP 11/14/21 15:35 109 H 128/78 11/14/21 11:32 36.4 C L 73 14 84/54 L 11/14/21 11:50 87 120/87 11/14/21 10:45 98 H 127/80 11/14/21 08:37 36.4 C L 101 H 16 121/71 Pulse Ox 11/14/21 15:35 11/14/21 11:32 96 11/14/21 11:50 11/14/21 10:45 11/14/21 08:37 94 Laboratory Results Short CBC 11/14/21 Range/Units 08:42 WBC 4.30 L (4.8-10.8) K/ul Hgb 8.0 L (12.0-16.0) g/dl Hct 24.1 L (34.1-44.9) % Plt Count 114 L (130-400) K/uL BMP 11/14/21 08:42 Sodium 140 Potassium 3.7 Chloride 113 H Carbon Dioxide 19 L BUN 12 Creatinine 0.53 L Glucose 107 H Calcium 7.6 L Medications Administered Current Inpatient Medications Acetaminophen (Acetaminophen 325 Mg Tab) 650 mg PO Q4H PRN PRN Reason: pain/fever Stop: 12/07/21 22:05 Last Admin: 11/13/21 20:53 Dose: 650 mg Al Hydrox/Mg Hydrox/Simethicone (Aluminum/Magnesium Susp 30 Ml Udc) 30 ml PO Q6H PRN PRN Reason: Dyspepsia Stop: 12/07/21 22:05 Amlodipine Besylate (Amlodipine Besylate 5 Mg Tab) 5 mg PO HS [facility] Stop: 12/07/21 22:05 Last Admin: 11/13/21 20:58 Dose: 5 mg Bisacodyl (Bisacodyl 10 Mg Supp) 10 mg [place] DAILY PRN PRN Reason: Constipation Stop: 12/09/21 13:46 Cyanocobalamin (Cyanocobalamin (B-12) 500 Mcg Tablet) 500 mcg PO DAILY [facility] Stop: 12/08/21 08:59 Last Admin: 11/14/21 10:10 Dose: 500 mcg Docusate Sodium (Docusate Sodium 100 Mg Cap) 100 mg PO BID [facility] Stop: 12/09/21 20:59 Last Admin: 11/14/21 10:45 Dose: Not Given Ezetimibe (Ezetimibe 10 Mg Tablet) 10 mg PO QAM [facility] Stop: 12/08/21 08:59 Last Admin: 11/14/21 10:10 Dose: 10 mg Ferrous Sulfate (Ferrous Sulfate 325 Mg Tab) 325 mg PO BID [facility] Stop: 12/07/21 22:05 Last Admin: 11/14/21 10:10 Dose: 325 mg Folic Acid (Folic Acid 1 Mg Tab) 2 mg PO QAM [facility] Stop: 12/08/21 08:59 Last Admin: 11/14/21 10:11 Dose: 2 mg Heparin Sodium (Porcine) (Heparin Sod 5,000 Unit/0.5 Ml Vial) 5,000 units SQ Q8 [facility] Stop: 12/12/21 13:59 Last Admin: 11/14/21 15:36 Dose: 5,000 units Daptomycin 200 mg/ Syringe 4 mls @ 2 mls/min IV Q24H [facility]; Protocol Stop: 11/16/21 19:59 Last Admin: 11/13/21 20:52 Dose: 2 mls/min Valproic Acid 500 mg/ Dextrose 55 mls @ 55 mls/hr IV Q8H [facility] Stop: 12/13/21 13:59 Last Admin: 11/14/21 15:30 Dose: 55 mls/hr Lactobacillus Acidophilus (Advanced Probiotic 1250 Mg Capsule) 2 cap PO DAILY [facility] Stop: 12/08/21 08:59 Last Admin: 11/14/21 10:44 Dose: 2 cap Leflunomide (Leflunomide 10 Mg Tab) 20 mg PO DAILY@1200 [facility] Stop: 12/08/21 11:59 Last Admin: 11/14/21 12:58 Dose: 20 mg Levothyroxine Sodium (Levothyroxine Sodium 50 Mcg Tablet) 50 mcg PO DAILYBB [facility] Stop: 12/15/21 06:29 Magnesium Hydroxide (Magnesium Hydroxide Susp 30 Ml Udc) 30 ml PO Q6H PRN PRN Reason: Constipation Stop: 12/09/21 13:46 Metoclopramide HCl (Metoclopramide Hcl Inj 5 Mg/Ml 2 Ml Vial) 10 mg IV Q6H PRN PRN Reason: Nausea And Vomiting Stop: 12/09/21 13:46 Last Admin: 11/10/21 17:55 Dose: 10 mg Metoprolol Tartrate (Metoprolol Tartrate 1 Mg/Ml Vial) 2.5 mg IV Q4H [facility] Stop: 12/10/21 13:44 Last Admin: 11/14/21 15:35 Dose: 2.5 mg Mirtazapine (Mirtazapine Tab 15 Mg Tab) 15 mg PO HS [facility] Stop: 12/07/21 22:05 Last Admin: 11/09/21 20:20 Dose: Not Given Multivitamins (Multivitamin Tab) 1 tab PO QAM [facility] Stop: 12/10/21 08:59 Last Admin: 11/14/21 10:10 Dose: 1 tab Naloxone HCl (Naloxone Hcl 0.4 Mg/1 Ml Vial/Carp) 0.1 mg IV Q5M PRN PRN Reason: Oversedation/Resp Depression Stop: 12/09/21 13:46 Ondansetron HCl (Ondansetron Inj 2 Mg/Ml 2 Ml Vial) 4 mg IV Q6H PRN PRN Reason: Nausea And Vomiting Stop: 12/09/21 13:46 Pantoprazole Sodium (Pantoprazole 40 Mg Tab) 40 mg PO QAM [facility] Stop: 12/08/21 08:59 Last Admin: 11/14/21 10:44 Dose: Not Given Polyethylene Glycol (Polyethylene (Miralax) 17 Gm Pack) 17 gm PO DAILY PRN PRN Reason: Constipation Stop: 12/07/21 22:05 Prednisone (Prednisone 5 Mg Tab) 5 mg PO DAILY [facility] Stop: 12/08/21 08:59 Last Admin: 11/14/21 10:09 Dose: 5 mg Sennosides (Senna 8.6 Mg Tab) 17.[address] [facility] Stop: 12/09/21 20:59 Last Admin: 11/13/21 20:58 Dose: 17.2 mg Tramadol HCl (Tramadol Hcl 50 Mg Tablet) 25 mg PO Q6H PRN PRN Reason: pain (scale score 7-10) Stop: 12/07/21 22:05 Last Admin: 11/08/21 04:18 Dose: 25 mg Warfarin Sodium (Warfarin Sod 1.25 Mg Tab) 1.25 mg PO TuTh@1600 [facility] Stop: 12/11/21 15:59 Last Admin: 11/13/21 15:38 Dose: 1.25 mg Warfarin Sodium (Warfarin Sod 2.5 Mg Tab) 2.5 mg PO SuMoWeFrSa@1600 [facility] Stop: 12/09/21 15:59 Last Admin: 11/14/21 15:57 Dose: 2.5 mg (1) Rheumatoid arthritis Rheumatoid arthritis location: unspecified site Rheumatoid factor presence: unspecified presence Qualified Code(s): M06.9 - Rheumatoid arthritis, unspecified
[2021-11-14] MEDS: DAPTOmycin 200 MG in SYRINGE 0 ML IV SCH (19:33)
[2021-11-14] MEDS: amLODIPine BESYLATE 5 MG TAB PO SCH (20:50)
[2021-11-14] MEDS: SENNA 8.6 MG TAB PO SCH (20:50)
[2021-11-14] MEDS: METOPROLOL SUCC 50MG EXT REL TAB PO SCH (20:50)
[2021-11-14] MEDS: traMADol HCL 50 MG TABLET PO PRN (22:55)
[2021-11-15] MEDS: LEVOTHYROXINE SODIUM 50 MCG TABLET PO SCH (05:21)
[2021-11-15] MEDS: VALPROATE SOD 500 MG in DEXTROSE 5% 50 ML IV SCH ×3 (05:23→21:54)
[2021-11-15] MEDS: HEPARIN SOD 5,000 UNIT/0.5 ML VIAL SQ SCH ×4 (05:24→21:55)
[2021-11-15] MEDS: EZETIMIBE 10 MG TABLET PO SCH (08:11)
[2021-11-15] MEDS: CYANOCOBALAMIN (B-12) 500 MCG TABLET PO SCH (08:11)
[2021-11-15] MEDS: FOLIC ACID 1 MG TAB PO SCH (08:11)
[2021-11-15] MEDS: METOPROLOL SUCC 50MG EXT REL TAB PO SCH ×2 (08:11→20:50)
[2021-11-15] MEDS: MULTIVITAMIN TAB PO SCH (08:11)
[2021-11-15] MEDS: FERROUS SULFATE 325 MG TAB PO SCH ×2 (08:11→20:50)
[2021-11-15] MEDS: predniSONE 5 MG TAB PO SCH (08:11)
[2021-11-15] MEDS: PANTOprazole 40 MG TAB PO SCH (08:12)
[2021-11-15] MEDS: ADVANCED PROBIOTIC 1250 MG CAPSULE PO SCH (08:12)
[2021-11-15] MEDS: DOCUSATE SODIUM 100 MG CAP PO SCH ×2 (08:12→20:50)
[2021-11-15 08:16] LABS: INR 2.2 (0.9-1.1); Prothrombin Time 22.5 Seconds (9.0-12.0)
[2021-11-15] MEDS: LEFLUNOMIDE 10 MG TAB PO SCH (12:59)
--- NOTE | 2021-11-15 15:34 | Hospitalist Progress Note ---
Date of Service November 15, 2021 Assessment & Plan (1) Cellulitis of left knee: (2) Cutaneous abscess of left knee: (3) CAD (coronary artery disease): (4) S/P TAVR (transcatheter aortic valve replacement): (5) Rheumatoid arthritis: (6) Chronic anemia: (7) Obstructive sleep apnea: (8) Hx pulmonary embolism: Plan This is an 80-year-old female who has a significant past medical history of CAD status post TYLER x2 to mid LAD 03/18/2020, history of aortic stenosis status post TAVR March 2021, HTN, HLD, INA on 2 L of O2 at at bedtime, rheumatoid arthritis on leflunomide and chronic prednisone therapy, chronic anemia, CKD stage III, history of PE/DVT in 2017 anticoagulated on warfarin who presents to ED 2/2 worsening L knee redness and concern for infection. Cellulitis of left knee Abscess of left knee Left knee has been becoming increasingly more red, swollen and warm. Patient does not meet criteria for SIRS or sepsis. She had left knee hematoma drained back in August. CT left knee showed Evidence for soft tissue ulceration with underlying deep subcutaneous fluid collection most characteristic of an abscess. small to moderate-sized joint effusion. Continue IV abx cefepime and daptomycin Ortho on board plan for incision and drainage fluid collection left medial knee whether it be a seroma or abscess will be cultured at that time. Left knee wound culture came back negative Discussion with the ID has been ongoing for use of suggested antibiotic and duration Awaiting ID recommendation about the duration and type of antibiotic Status postincision and drainage, left knee medial abscess. POD #4 on 11/12/2021 2. Debridement of left knee medial ulcer 1.2 cm x 1.2 cm x 0.6 cm including skin, dermis, subcutaneous tissue, and fascia. 3. Irrigation and debridement of left medial knee ulcer measuring 1.9 cm x 1.9 cm x 0.8 cm including skin, dermis, subcutaneous tissue, and fascia. ID on board recommended to change cefepime to meropenem for possible neurotoxicity Continue with Daptomycin Blood cx no growth for now Wound cx grew pin-point present , reincubating-negative culture Will continue intravenous meropenem for another 24 hours Will get ID recommendations for further issues with antibiotic Meropenem has been discontinued and daptomycin is continued for the time being Observed seizure-like activity: Acute encephalopathy: CT head showed no acute intracranial abnormality EEG was markedly abnormal. There was slowing of the background activity consistent with a moderate encephalopathy, and there was generalized potentially epileptogenic activity seen throughout. Neuro on board -appreciate input and recommendation Loading dose Keppra given yesterday and he was starting on Keppra 750mg BID No significant improvement in the tremor after starting keppra dose Keppra changed to Valproic acid Will check the valproic acid level No more seizures observed following administration of Depakote Will change Depakene to 500 mg IV every 6 hourly Monitor Depakote level daily and monitor CBC and electrolytes Much improved and trying to communicate normally MRI of the brain has been negative for any infection and/or stroke Depakote level is 39-we will continue current dose of Depakote CAD status post TYLER 03/18/2020 History of TAVR in March 2021 Chronic diastolic heart failure HTN HLD Patient's volume status compensated She denies chest pain or shortness of breath EKG without change Holding Plavix in setting of likely procedure, resume when okay with Ortho Holding statin in setting of daptomycin, resume when able pt refused metoprolol and amlodipine Continue IV lopressor for now while not able to take po intake Rheumatoid arthritis On chronic prednisone therapy as well as leflunomide Previous admissions and discharge summaries reflect patient taking methotrexate Methotrexate is currently not on patient's med reconciliation from [facility] and this was confirmed with facility per external pharmacy looks like last prescribed 10/17/21, therefore not sure where it may have dropped off but may need to be determined if pt needs to be on this medication or not for her RA Will try to reach her rheumatology to confirm if pt is taking the Methotrexate Pt refused her Prednisone yesterday and today. received stress dose steroid INA on 2L O2 at HS Hypothyroidism continue levothyroxine Chronic Anemia hgb dropped to 8. 5 not sure if dilutional hgb today 7.8 today with baseline ~ 10 Continue monitor H/H closely Stable CKD -3 Hgb 0.8 avoid nephrotoxic agents Stable Hx of PE/DVT in 2017 on roasterman warfarin therapy Vitamin K given on admission INR 1.1 today Resume Coumadin, but patient NPO Consider to start on IV heparin if continue to be unresponsive and hgb stable INR is 1.5 today Dispo: medical, likely to return back to [facility] FULL CODE DVT px will add on heparin sub. PCP: Shereen Discussed with the son Admission and Anticipated Discharge Date Admission Date: November 07, 2021 Subjective 11/13/2019 The patient was seen and examined in medical telemetry unit She has been hemodynamically stable but not being communicating verbally No more seizures observed Remains tachycardic without any other distress 11/13/2021 The patient was seen and examined in medical telemetry unit She has been feeling much better and has been opening her eyes and communicating reasonably Still has pain in the left knee but not in any acute distress 11/14/2021 The patient was seen and examined in medical telemetry unit He has been much improved today and has been communicating reasonably Has left knee pain but denies any other symptoms No fever and or chills and no more seizures 11/15/2021 The patient was seen and examined in medical telemetry unit She has been stable and trying to communicate with few words Denies any significant symptoms and the pain in the left knee seems to be better Review of Systems Review of Systems: All systems reviewed and are unremarkable except as noted below Physical Exam Physical Exam: Lying in bed without any acute distress Constitutional: well developed, well nourished, + ill appearing and average body habitus ENMT: external ear and nose normal, oropharynx normal Neck: trachea midline, no thyromegaly Respiratory: no respiratory distress Auscultation: lungs clear to auscultation bilaterally Cardiovascular: Rate/Rhythm: regular rate, regular rhythm and + tachycardic Heart Sounds: normal S1 and normal S2; no murmur Extremities: no edema Gastrointestinal (Abdomen): Inspection/Auscultation: normal bowel sounds; abdomen not distended Percussion/Palpation: abdomen soft; abdomen nontender Musculoskeletal: Left knee is bandaged and movement of the left knee did not produce much pain Neurologic: Alert and awake. Minimally communicative. Generally weak Lymphatic: no cervical or axillary lymphadenopathy Results & Data Results & Data ([facility]) Vital Signs (Past 12 Hours) Vital Signs Temp Pulse Resp BP Pulse Ox O2 Del Method 11/15/21 07:38 36.8 C 118 H 18 124/81 93 Room Air Medications Administered Current Inpatient Medications Acetaminophen (Acetaminophen 325 Mg Tab) 650 mg PO Q4H PRN PRN Reason: pain/fever Stop: 12/07/21 22:05 Last Admin: 11/13/21 20:53 Dose: 650 mg Al Hydrox/Mg Hydrox/Simethicone (Aluminum/Magnesium Susp 30 Ml Udc) 30 ml PO Q6H PRN PRN Reason: Dyspepsia Stop: 12/07/21 22:05 Amlodipine Besylate (Amlodipine Besylate 5 Mg Tab) 5 mg PO HS [facility] Stop: 12/07/21 22:05 Last Admin: 11/14/21 20:50 Dose: 5 mg Bisacodyl (Bisacodyl 10 Mg Supp) 10 mg GA DAILY PRN PRN Reason: Constipation Stop: 12/09/21 13:46 Cyanocobalamin (Cyanocobalamin (B-12) 500 Mcg Tablet) 500 mcg PO DAILY [facility] Stop: 12/08/21 08:59 Last Admin: 11/15/21 08:11 Dose: 500 mcg Docusate Sodium (Docusate Sodium 100 Mg Cap) 100 mg PO BID [facility] Stop: 12/09/21 20:59 Last Admin: 11/15/21 08:12 Dose: Not Given Ezetimibe (Ezetimibe 10 Mg Tablet) 10 mg PO QAM [facility] Stop: 12/08/21 08:59 Last Admin: 11/15/21 08:11 Dose: 10 mg Ferrous Sulfate (Ferrous Sulfate 325 Mg Tab) 325 mg PO BID [facility] Stop: 12/07/21 22:05 Last Admin: 11/15/21 08:11 Dose: 325 mg Folic Acid (Folic Acid 1 Mg Tab) 2 mg PO QAM [facility] Stop: 12/08/21 08:59 Last Admin: 11/15/21 08:11 Dose: 2 mg Heparin Sodium (Porcine) (Heparin Sod 5,000 Unit/0.5 Ml Vial) 5,000 units SQ Q8 [facility] Stop: 12/12/21 13:59 Last Admin: 11/15/21 13:04 Dose: 5,000 units Daptomycin 200 mg/ Syringe 4 mls @ 2 mls/min IV Q24H [facility]; Protocol Stop: 11/16/21 19:59 Last Admin: 11/14/21 19:33 Dose: 2 mls/min Valproic Acid 500 mg/ Dextrose 55 mls @ 55 mls/hr IV Q8H [facility] Stop: 12/13/21 13:59 Last Admin: 11/15/21 14:18 Dose: 55 mls/hr Lactobacillus Acidophilus (Advanced Probiotic 1250 Mg Capsule) 2 cap PO DAILY [facility] Stop: 12/08/21 08:59 Last Admin: 11/15/21 08:12 Dose: 2 cap Leflunomide (Leflunomide 10 Mg Tab) 20 mg PO DAILY@1200 [facility] Stop: 12/08/21 11:59 Last Admin: 11/15/21 12:59 Dose: 20 mg Levothyroxine Sodium (Levothyroxine Sodium 50 Mcg Tablet) 50 mcg PO DAILYBB [facility] Stop: 12/15/21 06:29 Last Admin: 11/15/21 05:21 Dose: 50 mcg Magnesium Hydroxide (Magnesium Hydroxide Susp 30 Ml Udc) 30 ml PO Q6H PRN PRN Reason: Constipation Stop: 12/09/21 13:46 Metoclopramide HCl (Metoclopramide Hcl Inj 5 Mg/Ml 2 Ml Vial) 10 mg IV Q6H PRN PRN Reason: Nausea And Vomiting Stop: 12/09/21 13:46 Last Admin: 11/10/21 17:55 Dose: 10 mg Metoprolol Succinate (Metoprolol Succ 50mg Ext Rel Tab) 50 mg PO BID [facility] Stop: 12/14/21 20:59 Last Admin: 11/15/21 08:11 Dose: 50 mg Mirtazapine (Mirtazapine Tab 15 Mg Tab) 15 mg PO HS [facility] Stop: 12/07/21 22:05 Last Admin: 11/09/21 20:20 Dose: Not Given Multivitamins (Multivitamin Tab) 1 tab PO QAM [facility] Stop: 12/10/21 08:59 Last Admin: 11/15/21 08:11 Dose: 1 tab Naloxone HCl (Naloxone Hcl 0.4 Mg/1 Ml Vial/Carp) 0.1 mg IV Q5M PRN PRN Reason: Oversedation/Resp Depression Stop: 12/09/21 13:46 Ondansetron HCl (Ondansetron Inj 2 Mg/Ml 2 Ml Vial) 4 mg IV Q6H PRN PRN Reason: Nausea And Vomiting Stop: 12/09/21 13:46 Last Admin: 11/15/21 00:17 Dose: 4 mg Pantoprazole Sodium (Pantoprazole 40 Mg Tab) 40 mg PO QAM [facility] Stop: 12/08/21 08:59 Last Admin: 11/15/21 08:12 Dose: 40 mg Polyethylene Glycol (Polyethylene (Miralax) 17 Gm Pack) 17 gm PO DAILY PRN PRN Reason: Constipation Stop: 12/07/21 22:05 Prednisone (Prednisone 5 Mg Tab) 5 mg PO DAILY [facility] Stop: 12/08/21 08:59 Last Admin: 11/15/21 08:11 Dose: 5 mg Sennosides (Senna 8.6 Mg Tab) 17.2 mg PO HS [facility] Stop: 12/09/21 20:59 Last Admin: 11/14/21 20:50 Dose: 17.2 mg Tramadol HCl (Tramadol Hcl 50 Mg Tablet) 25 mg PO Q6H PRN PRN Reason: pain (scale score 7-10) Stop: 12/07/21 22:05 Last Admin: 11/14/21 22:55 Dose: 25 mg Warfarin Sodium (Warfarin Sod 1.25 Mg Tab) 1.25 mg PO TuTh@1600 [facility] Stop: 12/11/21 15:59 Last Admin: 11/13/21 15:38 Dose: 1.25 mg Warfarin Sodium (Warfarin Sod 2.5 Mg Tab) 2.5 mg PO SuMoWeFrSa@1600 [facility] Stop: 12/09/21 15:59 Last Admin: 11/14/21 15:57 Dose: 2.5 mg (1) Rheumatoid arthritis Rheumatoid arthritis location: unspecified site Rheumatoid factor presence: unspecified presence Qualified Code(s): M06.9 - Rheumatoid arthritis, unspecified
[2021-11-15] MEDS: WARFARIN SOD 2.5 MG TAB PO SCH (16:03)
[2021-11-15] MEDS: DAPTOmycin 200 MG in SYRINGE 0 ML IV SCH (20:44)
[2021-11-15] MEDS: amLODIPine BESYLATE 5 MG TAB PO SCH (20:50)
[2021-11-15] MEDS: SENNA 8.6 MG TAB PO SCH (20:50)
[2021-11-16] MEDS: VALPROATE SOD 500 MG in DEXTROSE 5% 50 ML IV SCH ×2 (06:26→13:29)
[2021-11-16] MEDS: HEPARIN SOD 5,000 UNIT/0.5 ML VIAL SQ SCH ×3 (06:26→19:47)
[2021-11-16] MEDS: LEVOTHYROXINE SODIUM 50 MCG TABLET PO SCH (06:27)
[2021-11-16 08:33] LABS: INR 3.7 (0.9-1.1)
[2021-11-16] MEDS: PANTOprazole 40 MG TAB PO SCH (08:39)
[2021-11-16] MEDS: METOPROLOL SUCC 50MG EXT REL TAB PO SCH ×2 (08:39→19:46)
[2021-11-16] MEDS: MULTIVITAMIN TAB PO SCH (08:39)
[2021-11-16] MEDS: predniSONE 5 MG TAB PO SCH (08:39)
[2021-11-16] MEDS: ADVANCED PROBIOTIC 1250 MG CAPSULE PO SCH (08:40)
[2021-11-16] MEDS: CYANOCOBALAMIN (B-12) 500 MCG TABLET PO SCH (08:40)
[2021-11-16] MEDS: EZETIMIBE 10 MG TABLET PO SCH (08:40)
[2021-11-16] MEDS: FERROUS SULFATE 325 MG TAB PO SCH ×2 (08:40→19:45)
[2021-11-16] MEDS: FOLIC ACID 1 MG TAB PO SCH (08:40)
[2021-11-16] MEDS: DOCUSATE SODIUM 100 MG CAP PO SCH ×2 (08:42→19:57)
[2021-11-16] MEDS: LEFLUNOMIDE 10 MG TAB PO SCH (11:28)
--- NOTE | 2021-11-16 13:50 | Hospitalist Progress Note ---
Date of Service November 16, 2021 Assessment & Plan (1) Cellulitis of left knee: (2) Cutaneous abscess of left knee: (3) CAD (coronary artery disease): (4) S/P TAVR (transcatheter aortic valve replacement): (5) Rheumatoid arthritis: (6) Chronic anemia: (7) Obstructive sleep apnea: (8) Hx pulmonary embolism: Plan This is an 80-year-old female who has a significant past medical history of CAD status post TYLER x2 to mid LAD 03/18/2020, history of aortic stenosis status post TAVR March 2021, HTN, HLD, INA on 2 L of O2 at at bedtime, rheumatoid arthritis on leflunomide and chronic prednisone therapy, chronic anemia, CKD stage III, history of PE/DVT in 2017 anticoagulated on warfarin who presents to ED 2/2 worsening L knee redness and concern for infection. Cellulitis of left knee Abscess of left knee Left knee has been becoming increasingly more red, swollen and warm. Patient does not meet criteria for SIRS or sepsis. She had left knee hematoma drained back in August. CT left knee showed Evidence for soft tissue ulceration with underlying deep subcutaneous fluid collection most characteristic of an abscess. small to moderate-sized joint effusion. Continue IV abx cefepime and daptomycin Ortho on board plan for incision and drainage fluid collection left medial knee whether it be a seroma or abscess will be cultured at that time. Left knee wound culture came back negative Discussion with the ID has been ongoing for use of suggested antibiotic and duration Awaiting ID recommendation about the duration and type of antibiotic If no response from the ID physician will go with oral Levaquin for a course of a total of 2 weeks duration Status postincision and drainage, left knee medial abscess. POD #4 on 11/12/2021 2. Debridement of left knee medial ulcer 1.2 cm x 1.2 cm x 0.6 cm including skin, dermis, subcutaneous tissue, and fascia. 3. Irrigation and debridement of left medial knee ulcer measuring 1.9 cm x 1.9 cm x 0.8 cm including skin, dermis, subcutaneous tissue, and fascia. ID on board recommended to change cefepime to meropenem for possible neurotoxicity Continue with Daptomycin Blood cx no growth for now Wound cx grew pin-point present , reincubating-negative culture Will continue intravenous meropenem for another 24 hours Will get ID recommendations for further issues with antibiotic Meropenem has been discontinued and daptomycin is continued for the time being Movement of the left knee joint did not produce any pain Observed seizure-like activity: Acute encephalopathy: CT head showed no acute intracranial abnormality EEG was markedly abnormal. There was slowing of the background activity consistent with a moderate encephalopathy, and there was generalized potentially epileptogenic activity seen throughout. Neuro on board -appreciate input and recommendation Loading dose Keppra given yesterday and he was starting on Keppra 750mg BID No significant improvement in the tremor after starting keppra dose Keppra changed to Valproic acid Will check the valproic acid level No more seizures observed following administration of Depakote Will change Depakene to 500 mg IV every 6 hourly Monitor Depakote level daily and monitor CBC and electrolytes Much improved and trying to communicate normally MRI of the brain has been negative for any infection and/or stroke Depakote level is 39-we will continue current dose of Depakote Surprisingly Depakote level came back at more than 200 today-we will repeat the level stat and hold IV Depakote for now Patient remains free of any symptoms CAD status post TYLER 03/18/2020 History of TAVR in March 2021 Chronic diastolic heart failure HTN HLD Patient's volume status compensated She denies chest pain or shortness of breath EKG without change Holding Plavix in setting of likely procedure, resume when okay with Ortho Holding statin in setting of daptomycin, resume when able pt refused metoprolol and amlodipine Continue IV lopressor for now while not able to take po intake Rheumatoid arthritis On chronic prednisone therapy as well as leflunomide Previous admissions and discharge summaries reflect patient taking methotrexate Methotrexate is currently not on patient's med reconciliation from [facility] and this was confirmed with facility per external pharmacy looks like last prescribed 10/17/21, therefore not sure where it may have dropped off but may need to be determined if pt needs to be on this medication or not for her RA Will try to reach her rheumatology to confirm if pt is taking the Methotrexate Pt refused her Prednisone yesterday and today. received stress dose steroid INA on 2L O2 at HS Hypothyroidism continue levothyroxine Chronic Anemia hgb dropped to 8. 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 PCP: Shereen Discussed with the son Admission and Anticipated Discharge Date Admission Date: November 07, 2021 Subjective 11/13/2019 The patient was seen and examined in medical telemetry unit She has been hemodynamically stable but not being communicating verbally No more seizures observed Remains tachycardic without any other distress 11/13/2021 The patient was seen and examined in medical telemetry unit She has been feeling much better and has been opening her eyes and communicating reasonably Still has pain in the left knee but not in any acute distress 11/14/2021 The patient was seen and examined in medical telemetry unit He has been much improved today and has been communicating reasonably Has left knee pain but denies any other symptoms No fever and or chills and no more seizures 11/15/2021 The patient was seen and examined in medical telemetry unit She has been stable and trying to communicate with few words Denies any significant symptoms and the pain in the left knee seems to be better 11/16/2021 The patient was seen and examined in medical telemetry unit She is much alert and awake and denies any symptoms Her left knee pain is controlled No more seizures Review of Systems Review of Systems: All systems reviewed and are unremarkable except as noted below Physical Exam Physical Exam: Lying in bed without any acute distress Constitutional: well developed, well nourished, + ill appearing and average body habitus ENMT: external ear and nose normal, oropharynx normal Neck: trachea midline, no thyromegaly Respiratory: no respiratory distress Auscultation: lungs clear to auscultation bilaterally Cardiovascular: Rate/Rhythm: regular rate, regular rhythm and + tachycardic Heart Sounds: normal S1 and normal S2; no murmur Extremities: no edema Gastrointestinal (Abdomen): Inspection/Auscultation: normal bowel sounds; abdomen not distended Percussion/Palpation: abdomen soft; abdomen nontender Musculoskeletal: Minimal pain with movement of the left knee Neurologic: Alert and awake. Has been communicating reasonably. Moving all limbs Lymphatic: no cervical or axillary lymphadenopathy Results & Data Results & Data ([facility]) Vital Signs (Past 12 Hours) Vital Signs Temp Resp BP Pulse Ox O2 Del Method 11/16/21 08:30 Room Air 11/16/21 08:19 36.7 C 16 110/60 89 L Room Air Medications Administered Current Inpatient Medications Acetaminophen (Acetaminophen 325 Mg Tab) 650 mg PO Q4H PRN PRN Reason: pain/fever Stop: 12/07/21 22:05 Last Admin: 11/13/21 20:53 Dose: 650 mg Al Hydrox/Mg Hydrox/Simethicone (Aluminum/Magnesium Susp 30 Ml Udc) 30 ml PO Q6H PRN PRN Reason: Dyspepsia Stop: 12/07/21 22:05 Amlodipine Besylate (Amlodipine Besylate 5 Mg Tab) 5 mg PO HS [facility] Stop: 12/07/21 22:05 Last Admin: 11/15/21 20:50 Dose: 5 mg Bisacodyl (Bisacodyl 10 Mg Supp) 10 mg [place] DAILY PRN PRN Reason: Constipation Stop: 12/09/21 13:46 Cyanocobalamin (Cyanocobalamin (B-12) 500 Mcg Tablet) 500 mcg PO DAILY [facility] Stop: 12/08/21 08:59 Last Admin: 11/16/21 08:40 Dose: 500 mcg Docusate Sodium (Docusate Sodium 100 Mg Cap) 100 mg PO BID [facility]PH[facility] Stop: 12/09/21 20:59 Last Admin: 11/16/21 08:42 Dose: 100 mg Ezetimibe (Ezetimibe 10 Mg Tablet) 10 mg PO QAM [facility] Stop: 12/08/21 08:59 Last Admin: 11/16/21 08:40 Dose: 10 mg Ferrous Sulfate (Ferrous Sulfate 325 Mg Tab) 325 mg PO BID STEPHANIE Stop: 12/07/21 22:05 Last Admin: 11/16/21 08:40 Dose: 325 mg Folic Acid (Folic Acid 1 Mg Tab) 2 mg PO QAM [facility] Stop: 12/08/21 08:59 Last Admin: 11/16/21 08:40 Dose: 2 mg Heparin Sodium (Porcine) (Heparin Sod 5,000 Unit/0.5 Ml Vial) 5,000 units SQ Q8 [facility] Stop: 12/12/21 13:59 Last Admin: 11/16/21 13:30 Dose: 5,000 units Daptomycin 200 mg/ Syringe 4 mls @ 2 mls/min IV Q24H [facility]; Protocol Stop: 11/16/21 19:59 Last Admin: 11/15/21 20:44 Dose: 2 mls/min Valproic Acid 500 mg/ Dextrose 55 mls @ 55 mls/hr IV Q8H [facility] Stop: 12/13/21 13:59 Last Infusion: 11/16/21 13:40 Dose: 0 mls/hr Lactobacillus Acidophilus (Advanced Probiotic 1250 Mg Capsule) 2 cap PO DAILY [facility] Stop: 12/08/21 08:59 Last Admin: 11/16/21 08:40 Dose: 2 cap Leflunomide (Leflunomide 10 Mg Tab) 20 mg PO DAILY@1200 [facility] Stop: 12/08/21 11:59 Last Admin: 11/16/21 11:28 Dose: 20 mg Levothyroxine Sodium (Levothyroxine Sodium 50 Mcg Tablet) 50 mcg PO DAILYBB [facility] Stop: 12/15/21 06:29 Last Admin: 11/16/21 06:27 Dose: 50 mcg Magnesium Hydroxide (Magnesium Hydroxide Susp 30 Ml Udc) 30 ml PO Q6H PRN PRN Reason: Constipation Stop: 12/09/21 13:46 Metoclopramide HCl (Metoclopramide Hcl Inj 5 Mg/Ml 2 Ml Vial) 10 mg IV Q6H PRN PRN Reason: Nausea And Vomiting Stop: 12/09/21 13:46 Last Admin: 11/10/21 17:55 Dose: 10 mg Metoprolol Succinate (Metoprolol Succ 50mg Ext Rel Tab) 50 mg PO BID [facility] Stop: 12/14/21 20:59 Last Admin: 11/16/21 08:39 Dose: 50 mg Mirtazapine (Mirtazapine Tab 15 Mg Tab) 15 mg PO HS [facility] Stop: 12/07/21 22:05 Last Admin: 11/09/21 20:20 Dose: Not Given Multivitamins (Multivitamin Tab) 1 tab PO QAM [facility] Stop: 12/10/21 08:59 Last Admin: 11/16/21 08:39 Dose: 1 tab Naloxone HCl (Naloxone Hcl 0.4 Mg/1 Ml Vial/Carp) 0.1 mg IV Q5M PRN PRN Reason: Oversedation/Resp Depression Stop: 12/09/21 13:46 Ondansetron HCl (Ondansetron Inj 2 Mg/Ml 2 Ml Vial) 4 mg IV Q6H PRN PRN Reason: Nausea And Vomiting Stop: 12/09/21 13:46 Last Admin: 11/15/21 00:17 Dose: 4 mg Pantoprazole Sodium (Pantoprazole 40 Mg Tab) 40 mg PO QAM [facility] Stop: 12/08/21 08:59 Last Admin: 11/16/21 08:39 Dose: 40 mg Polyethylene Glycol (Polyethylene (Miralax) 17 Gm Pack) 17 gm PO DAILY PRN PRN Reason: Constipation Stop: 12/07/21 22:05 Prednisone (Prednisone 5 Mg Tab) 5 mg PO DAILY [facility] Stop: 12/08/21 08:59 Last Admin: 11/16/21 08:39 Dose: 5 mg Sennosides (Senna 8.6 Mg Tab) 17.2 mg PO HS [facility] Stop: 12/09/21 20:59 Last Admin: 11/15/21 20:50 Dose: 17.2 mg Tramadol HCl (Tramadol Hcl 50 Mg Tablet) 25 mg PO Q6H PRN PRN Reason: pain (scale score 7-10) Stop: 12/07/21 22:05 Last Admin: 11/14/21 22:55 Dose: 25 mg Warfarin Sodium (Warfarin Sod 1.25 Mg Tab) 1.25 mg PO TuTh@1600 [facility] Stop: 12/11/21 15:59 Last Admin: 11/13/21 15:38 Dose: 1.25 mg Warfarin Sodium (Warfarin Sod 2.5 Mg Tab) 2.5 mg PO SuMoWeFrSa@1600 [facility] Stop: 12/09/21 15:59 Last Admin: 11/15/21 16:03 Dose: 2.5 mg (1) Rheumatoid arthritis Rheumatoid arthritis location: unspecified site Rheumatoid factor presence: unspecified presence Qualified Code(s): M06.9 - Rheumatoid arthritis, unspecified
[2021-11-16] MEDS: amLODIPine BESYLATE 5 MG TAB PO SCH (19:45)
[2021-11-16] MEDS: SENNA 8.6 MG TAB PO SCH (19:46)
[2021-11-17] MEDS: VALPROATE SOD 500 MG in DEXTROSE 5% 50 ML IV SCH ×3 (00:18→13:31)
[2021-11-17] MEDS: LEVOTHYROXINE SODIUM 50 MCG TABLET PO SCH (06:37)
[2021-11-17] MEDS: HEPARIN SOD 5,000 UNIT/0.5 ML VIAL SQ SCH (06:37)
[2021-11-17] MEDS: DOCUSATE SODIUM 100 MG CAP PO SCH ×2 (07:44→20:41)
[2021-11-17] MEDS: FOLIC ACID 1 MG TAB PO SCH (07:45)
[2021-11-17] MEDS: ADVANCED PROBIOTIC 1250 MG CAPSULE PO SCH (07:45)
[2021-11-17] MEDS: METOPROLOL SUCC 50MG EXT REL TAB PO SCH ×2 (07:45→20:42)
[2021-11-17] MEDS: PANTOprazole 40 MG TAB PO SCH (07:45)
[2021-11-17] MEDS: CYANOCOBALAMIN (B-12) 500 MCG TABLET PO SCH (07:46)
[2021-11-17] MEDS: predniSONE 5 MG TAB PO SCH (07:46)
[2021-11-17] MEDS: FERROUS SULFATE 325 MG TAB PO SCH ×2 (07:46→20:42)
[2021-11-17] MEDS: EZETIMIBE 10 MG TABLET PO SCH (07:46)
[2021-11-17] MEDS: MULTIVITAMIN TAB PO SCH (07:46)
[2021-11-17 08:21] LABS: INR 4.8 (0.9-1.1); Prothrombin Time 46.8 Seconds (9.0-12.0)
[2021-11-17] MEDS: LEFLUNOMIDE 10 MG TAB PO SCH (11:23)
[2021-11-17] MEDS ORDERED: cephALEXin 500 MG CAP PO ONE (12:00)
[2021-11-17] MEDS: amLODIPine BESYLATE 5 MG TAB PO SCH (20:39)
[2021-11-17] MEDS: DIVALPROEX DELAY RELEASE 250 MG TABEC PO SCH (20:40)
[2021-11-17] MEDS: SENNA 8.6 MG TAB PO SCH (20:43)
[2021-11-18] MEDS: LEVOTHYROXINE SODIUM 50 MCG TABLET PO SCH (05:48)
[2021-11-18] MEDS: EZETIMIBE 10 MG TABLET PO SCH (07:59)
[2021-11-18] MEDS: ADVANCED PROBIOTIC 1250 MG CAPSULE PO SCH (07:59)
[2021-11-18] MEDS: MULTIVITAMIN TAB PO SCH (07:59)
[2021-11-18] MEDS: FOLIC ACID 1 MG TAB PO SCH (07:59)
[2021-11-18] MEDS: PANTOprazole 40 MG TAB PO SCH (07:59)
[2021-11-18] MEDS: DIVALPROEX DELAY RELEASE 250 MG TABEC PO SCH ×2 (08:00→20:19)
[2021-11-18] MEDS: predniSONE 5 MG TAB PO SCH (08:00)
[2021-11-18] MEDS: CYANOCOBALAMIN (B-12) 500 MCG TABLET PO SCH (08:00)
[2021-11-18] MEDS: METOPROLOL SUCC 50MG EXT REL TAB PO SCH ×2 (08:00→20:21)
[2021-11-18] MEDS: FERROUS SULFATE 325 MG TAB PO SCH ×2 (08:00→20:21)
[2021-11-18] MEDS: DOCUSATE SODIUM 100 MG CAP PO SCH ×2 (08:02→20:21)
[2021-11-18 09:50] LABS: BUN Creatinine Ratio 11.3 (10-20); Calcium 7.9 mg/dl (8.5-10.1); Creatinine Clr Calc Pharmacy 46.9 ml/min; Est GFR (African American) 92.6 ml/min; Est GFR (Non-African American) 79.9 ml/min
[2021-11-18 09:53] LABS: INR 4.1 (0.9-1.1); Prothrombin Time 40.9 Seconds (9.0-12.0)
[2021-11-18 09:54] LABS: Basophils # (auto) 0.07 K/uL (0-0.2); Basophils % (auto) 2.2 %; Eosinophils # (auto) 0.13 K/uL (0-0.50); Eosinophils % (auto) 4.1 %; Hematocrit (blood only) 24.5 % (34.1-44.9); Hemoglobin 7.9 g/dl (12.0-16.0); Immature Granulocytes # (auto) 0.13 K/uL (0.00-0.02); Immature Granulocytes % (auto) 4.1 %; Lymphocytes # (auto) 0.74 K/uL (1.2-3.4); Lymphocytes % (auto) 23.1 %; Mean Platelet Volume 10.2 fL (9.4-12.3); Monocytes # (auto) 0.74 K/uL (0.24-0.82); Monocytes % (auto) 23.1 %; Neutrophils # (auto) 1.39 K/uL (1.4-6.5); Neutrophils % (auto) 43.4 %; Platelet Count 116 K/uL (130-400)
[2021-11-18 10:15] LABS: Echinocytes 1+; Mean Corpuscular Hemoglobin 34.1 pg (25.0-34.0); Mean Corpuscular Hgb Conc 32.2 g/dL (32.0-36.0); Mean Corpuscular Volume 105.6 fL (80.0-100.0); Nucleated RBC # (auto) 0.02 K/uL (0-0); Nucleated RBC % (auto) 0.6 %; Ovalocytes 1+; RDW Coefficient of Variation 16.5 % (11.5-14.5); RDW Standard Deviation 57.8 fL (36.4-46.3); Red Blood Count 2.32 M/uL (3.93-5.22); Toxic Granulation 1+
--- NOTE | 2021-11-18 10:17 | Communication Note ---
Date of Service: November 18, 2021 [facility] for wound check. Seen with wound care nurse who was consulted to see wound as well. Left knee surgical area with much less swelling since I last saw her. No erythema noted around the wounds. Distal incision well approximated. Proximal wound well approximated at the apices, slight opening of the wound at the central portion. Scant serous drainage noted. No purulence. Area cleaned with sterile saline. 2 steri strips placed on central portion of wound. Medium optifoam placed over wounds. Continue daily dressing changes. Follow up with Dr. Aldana in a week for wound check and suture removal.
--- NOTE | 2021-11-18 11:20 | Hospitalist Progress Note ---
Date of Service November 17, 2021 Assessment & Plan (1) Cellulitis of left knee: (2) Cutaneous abscess of left knee: (3) CAD (coronary artery disease): (4) S/P TAVR (transcatheter aortic valve replacement): (5) Rheumatoid arthritis: (6) Chronic anemia: (7) Obstructive sleep apnea: (8) Hx pulmonary embolism: Plan This is an 80-year-old female who has a significant past medical history of CAD status post TYLER x2 to mid LAD 03/18/2020, history of aortic stenosis status post TAVR March 2021, HTN, HLD, INA on 2 L of O2 at at bedtime, rheumatoid arthritis on leflunomide and chronic prednisone therapy, chronic anemia, CKD stage III, history of PE/DVT in 2017 anticoagulated on warfarin who presents to ED 2/2 worsening L knee redness and concern for infection. Cellulitis of left knee Abscess of left knee Left knee has been becoming increasingly more red, swollen and warm. Patient does not meet criteria for SIRS or sepsis. She had left knee hematoma drained back in August. CT left knee showed Evidence for soft tissue ulceration with underlying deep subcutaneous fluid collection most characteristic of an abscess. small to moderate-sized joint effusion. Continue IV abx cefepime and daptomycin Ortho on board plan for incision and drainage fluid collection left medial knee whether it be a seroma or abscess will be cultured at that time. Left knee wound culture came back negative Discussion with the ID has been ongoing for use of suggested antibiotic and duration Awaiting ID recommendation about the duration and type of antibiotic If no response from the ID physician will go with oral Levaquin for a course of a total of 2 weeks duration Wound looks much better with minimal inflammation around Started on oral Keflex-Levaquin was not given because of side effect profile Appreciate Ortho and wound care evaluation Stitches will come out and do time Status postincision and drainage, left knee medial abscess. POD #4 on 11/12/2021 2. Debridement of left knee medial ulcer 1.2 cm x 1.2 cm x 0.6 cm including skin, dermis, subcutaneous tissue, and fascia. 3. Irrigation and debridement of left medial knee ulcer measuring 1.9 cm x 1.9 cm x 0.8 cm including skin, dermis, subcutaneous tissue, and fascia. ID on board recommended to change cefepime to meropenem for possible neurotoxicity Continue with Daptomycin Blood cx no growth for now Wound cx grew pin-point present , reincubating-negative culture Will continue intravenous meropenem for another 24 hours Will get ID recommendations for further issues with antibiotic Meropenem has been discontinued and daptomycin is continued for the time being Movement of the left knee joint did not produce any pain Left knee is much better and the wound is seems to be healing Observed seizure-like activity: Acute encephalopathy: CT head showed no acute intracranial abnormality EEG was markedly abnormal. There was slowing of the background activity consistent with a moderate encephalopathy, and there was generalized potentially epileptogenic activity seen throughout. Neuro on board -appreciate input and recommendation Loading dose Keppra given yesterday and he was starting on Keppra 750mg BID No significant improvement in the tremor after starting keppra dose Keppra changed to Valproic acid Will check the valproic acid level No more seizures observed following administration of Depakote Will change Depakene to 500 mg IV every 6 hourly Monitor Depakote level daily and monitor CBC and electrolytes Much improved and trying to communicate normally MRI of the brain has been negative for any infection and/or stroke Depakote level is 39-we will continue current dose of Depakote Surprisingly Depakote level came back at more than 200 today-we will repeat the level stat and hold IV Depakote for now Patient remains free of any symptoms Discussed with Dr. Herrera and the Depakote will be given 750 mg twice daily CAD status post TYLER 03/18/2020 History of TAVR in March 2021 Chronic diastolic heart failure HTN HLD Patient's volume status compensated She denies chest pain or shortness of breath EKG without change Holding Plavix in setting of likely procedure, resume when okay with Ortho Holding statin in setting of daptomycin, resume when able pt refused metoprolol and amlodipine Continue IV lopressor for now while not able to take po intake Rheumatoid arthritis On chronic prednisone therapy as well as leflunomide Previous admissions and discharge summaries reflect patient taking methotrexate Methotrexate is currently not on patient's med reconciliation from [facility] and this was confirmed with facility per external pharmacy looks like last prescribed 10/17/21, therefore not sure where it may have dropped off but may need to be determined if pt needs to be on this medication or not for her RA Will try to reach her rheumatology to confirm if pt is taking the Methotrexate Pt refused her Prednisone yesterday and today. received stress dose steroid INA on 2L O2 at HS Hypothyroidism continue levothyroxine Chronic Anemia hgb dropped to 8. 5 not sure if dilutional hgb today 7.8 today with baseline ~ 10 Continue monitor H/H closely Stable CKD -3 Hgb 0.8 avoid nephrotoxic agents Stable Hx of PE/DVT in 2017 on retirement warfarin therapy Vitamin K given on admission INR 1.1 today Resume Coumadin, but patient NPO Consider to start on IV heparin if continue to be unresponsive and hgb stable INR has been running high and it is 4.1 today We will hold Coumadin and recheck INR in 2 days and restart accordingly Dispo: medical, likely to return back to [facility] FULL CODE DVT px will add on heparin sub. PCP: Shereen Discussed with the son Likely to be discharged this afternoon Admission and Anticipated Discharge Date Admission Date: November 07, 2021 Subjective 11/13/2019 The patient was seen and examined in medical telemetry unit She has been hemodynamically stable but not being communicating verbally No more seizures observed Remains tachycardic without any other distress 11/13/2021 The patient was seen and examined in medical telemetry unit She has been feeling much better and has been opening her eyes and communicating reasonably Still has pain in the left knee but not in any acute distress 11/14/2021 The patient was seen and examined in medical telemetry unit He has been much improved today and has been communicating reasonably Has left knee pain but denies any other symptoms No fever and or chills and no more seizures 11/15/2021 The patient was seen and examined in medical telemetry unit She has been stable and trying to communicate with few words Denies any significant symptoms and the pain in the left knee seems to be better 11/16/2021 The patient was seen and examined in medical telemetry unit She is much alert and awake and denies any symptoms Her left knee pain is controlled No more seizures 11/17/2021 The patient was seen and examined in medical telemetry unit Remained stable Review of Systems Review of Systems: All systems reviewed and are unremarkable except as noted below Physical Exam Physical Exam: Lying in bed without any acute distress Constitutional: well developed, well nourished, + ill appearing and average body habitus ENMT: external ear and nose normal, oropharynx normal Neck: trachea midline, no thyromegaly Respiratory: no respiratory distress Auscultation: lungs clear to auscultation bilaterally Cardiovascular: Rate/Rhythm: regular rate, regular rhythm and + tachycardic Heart Sounds: normal S1 and normal S2; no murmur Extremities: no edema Gastrointestinal (Abdomen): Inspection/Auscultation: normal bowel sounds; abdomen not distended Percussion/Palpation: abdomen soft; abdomen nontender Neurologic: Alert and awake. Communicating reasonably Lymphatic: no cervical or axillary lymphadenopathy Results & Data Results & Data ([facility]) Vital Signs (Past 12 Hours) Vital Signs Temp Pulse Resp BP Pulse Ox O2 Del Method 11/18/21 09:49 Room Air 11/18/21 07:50 36.8 C 93 H 16 132/76 92 Room Air (1) Rheumatoid arthritis Rheumatoid arthritis location: unspecified site Rheumatoid factor presence: unspecified presence Qualified Code(s): M06.9 - Rheumatoid arthritis, unspecified
--- NOTE | 2021-11-18 11:31 | Hospitalist Progress Note ---
Date of Service November 18, 2021 Assessment & Plan (1) Cellulitis of left knee: (2) Cutaneous abscess of left knee: (3) CAD (coronary artery disease): (4) S/P TAVR (transcatheter aortic valve replacement): (5) Rheumatoid arthritis: (6) Chronic anemia: (7) Obstructive sleep apnea: (8) Hx pulmonary embolism: Plan This is an 80-year-old female who has a significant past medical history of CAD status post TYLER x2 to mid LAD 03/18/2020, history of aortic stenosis status post TAVR March 2021, HTN, HLD, INA on 2 L of O2 at at bedtime, rheumatoid arthritis on leflunomide and chronic prednisone therapy, chronic anemia, CKD stage III, history of PE/DVT in 2017 anticoagulated on warfarin who presents to ED 2/2 worsening L knee redness and concern for infection. Cellulitis of left knee Abscess of left knee Left knee has been becoming increasingly more red, swollen and warm. Patient does not meet criteria for SIRS or sepsis. She had left knee hematoma drained back in August. CT left knee showed Evidence for soft tissue ulceration with underlying deep subcutaneous fluid collection most characteristic of an abscess. small to moderate-sized joint effusion. Continue IV abx cefepime and daptomycin Ortho on board plan for incision and drainage fluid collection left medial knee whether it be a seroma or abscess will be cultured at that time. Left knee wound culture came back negative Discussion with the ID has been ongoing for use of suggested antibiotic and duration Awaiting ID recommendation about the duration and type of antibiotic If no response from the ID physician will go with oral Levaquin for a course of a total of 2 weeks duration Wound looks much better with minimal inflammation around Started on oral Keflex-Levaquin was not given because of side effect profile Appreciate Ortho and wound care evaluation Stitches will come out in due time She will be seen by Dr. Aldana in 1 week for stitch removal Status postincision and drainage, left knee medial abscess. POD #4 on 11/12/2021 2. Debridement of left knee medial ulcer 1.2 cm x 1.2 cm x 0.6 cm including skin, dermis, subcutaneous tissue, and fascia. 3. Irrigation and debridement of left medial knee ulcer measuring 1.9 cm x 1.9 cm x 0.8 cm including skin, dermis, subcutaneous tissue, and fascia. ID on board recommended to change cefepime to meropenem for possible neurotoxicity Continue with Daptomycin Blood cx no growth for now Wound cx grew pin-point present , reincubating-negative culture Will continue intravenous meropenem for another 24 hours Will get ID recommendations for further issues with antibiotic Meropenem has been discontinued and daptomycin is continued for the time being Movement of the left knee joint did not produce any pain Left knee is much better and the wound is seems to be healing Oral antibiotic will be continued for a total of 7 days Observed seizure-like activity: Acute encephalopathy: CT head showed no acute intracranial abnormality EEG was markedly abnormal. There was slowing of the background activity consistent with a moderate encephalopathy, and there was generalized potentially epileptogenic activity seen throughout. Neuro on board -appreciate input and recommendation Loading dose Keppra given yesterday and he was starting on Keppra 750mg BID No significant improvement in the tremor after starting keppra dose Keppra changed to Valproic acid Will check the valproic acid level No more seizures observed following administration of Depakote Will change Depakene to 500 mg IV every 6 hourly Monitor Depakote level daily and monitor CBC and electrolytes Much improved and trying to communicate normally MRI of the brain has been negative for any infection and/or stroke Depakote level is 39-we will continue current dose of Depakote Surprisingly Depakote level came back at more than 200 today-we will repeat the level stat and hold IV Depakote for now Patient remains free of any symptoms Discussed with Dr. Herrera and the Depakote will be given 750 mg twice daily Will have appointment with neurology as an outpatient CAD status post TYLER 03/18/2020 History of TAVR in March 2021 Chronic diastolic heart failure HTN HLD Patient's volume status compensated She denies chest pain or shortness of breath EKG without change Holding Plavix in setting of likely procedure, resume when okay with Ortho Holding statin in setting of daptomycin, resume when able pt refused metoprolol and amlodipine Continue IV lopressor for now while not able to take po intake Rheumatoid arthritis On chronic prednisone therapy as well as leflunomide Previous admissions and discharge summaries reflect patient taking methotrexate Methotrexate is currently not on patient's med reconciliation from [facility] and this was confirmed with facility per external pharmacy looks like last prescribed 10/17/21, therefore not sure where it may have dropped off but may need to be determined if pt needs to be on this medication or not for her RA Will try to reach her rheumatology to confirm if pt is taking the Methotrexate Pt refused her Prednisone yesterday and today. received stress dose steroid INA on 2L O2 at HS Hypothyroidism continue levothyroxine Chronic Anemia hgb dropped to 8. 5 not sure if dilutional hgb today 7.8 today with baseline ~ 10 Continue monitor H/H closely Stable CKD -3 Hgb 0.8 avoid nephrotoxic agents Stable Hx of PE/DVT in 2017 on senior care warfarin therapy Vitamin K given on admission INR 1.1 today Resume Coumadin, but patient NPO Consider to start on IV heparin if continue to be unresponsive and hgb stable INR has been running high and it is 4.1 today We will hold Coumadin and recheck INR in 2 days and restart accordingly Dispo: medical, likely to return back to [facility] FULL CODE DVT px will add on heparin sub. PCP: Shereen Discussed with the son Likely to be discharged this afternoon Admission and Anticipated Discharge Date Admission Date: November 07, 2021 Subjective 11/13/2019 The patient was seen and examined in medical telemetry unit She has been hemodynamically stable but not being communicating verbally No more seizures observed Remains tachycardic without any other distress 11/13/2021 The patient was seen and examined in medical telemetry unit She has been feeling much better and has been opening her eyes and communicating reasonably Still has pain in the left knee but not in any acute distress 11/14/2021 The patient was seen and examined in medical telemetry unit He has been much improved today and has been communicating reasonably Has left knee pain but denies any other symptoms No fever and or chills and no more seizures 11/15/2021 The patient was seen and examined in medical telemetry unit She has been stable and trying to communicate with few words Denies any significant symptoms and the pain in the left knee seems to be better 11/16/2021 The patient was seen and examined in medical telemetry unit She is much alert and awake and denies any symptoms Her left knee pain is controlled No more seizures 11/17/2021 The patient was seen and examined in medical telemetry unit Remained stable 11/18/2021 The patient was seen and examined in medical telemetry unit This is all of her best days in the hospital Has been talking almost normally and denies any significant discomfort She is ready to be discharged Review of Systems Review of Systems: All systems reviewed and are unremarkable except as noted below Neurologic: No more seizures Physical Exam Physical Exam: Lying in bed without any acute distress Constitutional: well developed, well nourished, + ill appearing and average body habitus ENMT: external ear and nose normal, oropharynx normal Neck: trachea midline, no thyromegaly Respiratory: no respiratory distress Auscultation: lungs clear to auscultation bilaterally Cardiovascular: Rate/Rhythm: regular rate, regular rhythm and + tachycardic Heart Sounds: normal S1 and normal S2; no murmur Extremities: no edema Gastrointestinal (Abdomen): Inspection/Auscultation: normal bowel sounds; abdomen not distended Percussion/Palpation: abdomen soft; abdomen nontender Musculoskeletal: No acute arthritis involving any joint. Left knee movement i s minimally painful Neurologic: Alert and awake. Pleasantly confused but has been communicating reasonably well Lymphatic: no cervical or axillary lymphadenopathy Results & Data Results & Data ([facility]) Vital Signs (Past 12 Hours) Vital Signs Temp Pulse Resp BP Pulse Ox O2 Del Method 11/18/21 09:49 Room Air 11/18/21 07:50 36.8 C 93 H 16 132/76 92 Room Air Laboratory Results Short CBC 11/18/21 Range/Units 09:36 WBC 3.20 L (4.8-10.8) K/ul Hgb 7.9 L (12.0-16.0) g/dl Hct 24.5 L (34.1-44.9) % Plt Count 116 L (130-400) K/uL BMP 11/18/21 09:17 Sodium 140 Potassium 4.0 Chloride 112 H Carbon Dioxide 21 BUN 8 Creatinine 0.71 Glucose 83 Calcium 7.9 L Medications Administered Current Inpatient Medications Acetaminophen (Acetaminophen 325 Mg Tab) 650 mg PO Q4H PRN PRN Reason: pain/fever Stop: 12/07/21 22:05 Last Admin: 11/13/21 20:53 Dose: 650 mg Al Hydrox/Mg Hydrox/Simethicone (Aluminum/Magnesium Susp 30 Ml Udc) 30 ml PO Q6H PRN PRN Reason: Dyspepsia Stop: 12/07/21 22:05 Amlodipine Besylate (Amlodipine Besylate 5 Mg Tab) 5 mg PO HS STEPHANIE Stop: 12/07/21 22:05 Last Admin: 11/17/21 20:39 Dose: 5 mg Bisacodyl (Bisacodyl 10 Mg Supp) 10 mg WA DAILY PRN PRN Reason: Constipation Stop: 12/09/21 13:46 Cyanocobalamin (Cyanocobalamin (B-12) 500 Mcg Tablet) 500 mcg PO DAILY STEPHANIE Stop: 12/08/21 08:59 Last Admin: 11/18/21 08:00 Dose: 500 mcg Divalproex Sodium (Divalproex Delay Release 250 Mg Tabec) 750 mg PO BID STEPHANIE Stop: 12/17/21 20:59 Last Admin: 11/18/21 08:00 Dose: 750 mg Docusate Sodium (Docusate Sodium 100 Mg Cap) 100 mg PO BID [facility] Stop: 12/09/21 20:59 Last Admin: 11/18/21 08:02 Dose: 100 mg Ezetimibe (Ezetimibe 10 Mg Tablet) 10 mg PO QAM [facility] Stop: 12/08/21 08:59 Last Admin: 11/18/21 07:59 Dose: 10 mg Ferrous Sulfate (Ferrous Sulfate 325 Mg Tab) 325 mg PO BID [facility] Stop: 12/07/21 22:05 Last Admin: 11/18/21 08:00 Dose: 325 mg Folic Acid (Folic Acid 1 Mg Tab) 2 mg PO QAM [facility] Stop: 12/08/21 08:59 Last Admin: 11/18/21 07:59 Dose: 2 mg Lactobacillus Acidophilus (Advanced Probiotic 1250 Mg Capsule) 2 cap PO DAILY STEPHANIE Stop: 12/08/21 08:59 Last Admin: 11/18/21 07:59 Dose: 2 cap Leflunomide (Leflunomide 10 Mg Tab) 20 mg PO DAILY@1200 [facility] Stop: 12/08/21 11:59 Last Admin: 11/17/21 11:23 Dose: 20 mg Levothyroxine Sodium (Levothyroxine Sodium 50 Mcg Tablet) 50 mcg PO DAILYBB [facility] Stop: 12/15/21 06:29 Last Admin: 11/18/21 05:48 Dose: Not Given Magnesium Hydroxide (Magnesium Hydroxide Susp 30 Ml Udc) 30 ml PO Q6H PRN PRN Reason: Constipation Stop: 12/09/21 13:46 Metoclopramide HCl (Metoclopramide Hcl Inj 5 Mg/Ml 2 Ml Vial) 10 mg IV Q6H PRN PRN Reason: Nausea And Vomiting Stop: 12/09/21 13:46 Last Admin: 11/10/21 17:55 Dose: 10 mg Metoprolol Succinate (Metoprolol Succ 50mg Ext Rel Tab) 50 mg PO BID [facility] Stop: 12/14/21 20:59 Last Admin: 11/18/21 08:00 Dose: 50 mg Mirtazapine (Mirtazapine Tab 15 Mg Tab) 15 mg PO [facility] Stop: 12/07/21 22:05 Last Admin: 11/09/21 20:20 Dose: Not Given Multivitamins (Multivitamin Tab) 1 tab PO QAM [facility] Stop: 12/10/21 08:59 Last Admin: 11/18/21 07:59 Dose: 1 tab Naloxone HCl (Naloxone Hcl 0.4 Mg/1 Ml Vial/Carp) 0.1 mg IV Q5M PRN PRN Reason: Oversedation/Resp Depression Stop: 12/09/21 13:46 Ondansetron HCl (Ondansetron Inj 2 Mg/Ml 2 Ml Vial) 4 mg IV Q6H PRN PRN Reason: Nausea And Vomiting Stop: 12/09/21 13:46 Last Admin: 11/15/21 00:17 Dose: 4 mg Pantoprazole Sodium (Pantoprazole 40 Mg Tab) 40 mg PO QAM [facility] Stop: 12/08/21 08:59 Last Admin: 11/18/21 07:59 Dose: 40 mg Polyethylene Glycol (Polyethylene (Miralax) 17 Gm Pack) 17 gm PO DAILY PRN PRN Reason: Constipation Stop: 12/07/21 22:05 Prednisone (Prednisone 5 Mg Tab) 5 mg PO DAILY [facility] Stop: 12/08/21 08:59 Last Admin: 11/18/21 08:00 Dose: 5 mg Sennosides (Senna 8.6 Mg Tab) 17.2 mg PO [facility] Stop: 12/09/21 20:59 Last Admin: 11/17/21 20:43 Dose: 17.2 mg Tramadol HCl (Tramadol Hcl 50 Mg Tablet) 25 mg PO Q6H PRN PRN Reason: pain (scale score 7-10) Stop: 12/07/21 22:05 Last Admin: 11/14/21 22:55 Dose: 25 mg Warfarin Sodium (Warfarin Sod 1.25 Mg Tab) 1.25 mg PO TuTh@1600 [facility] Stop: 12/11/21 15:59 Last Admin: 11/13/21 15:38 Dose: 1.25 mg Warfarin Sodium (Warfarin Sod 2.5 Mg Tab) 2.5 mg PO SuMoWeFrSa@1600 [facility] Stop: 12/09/21 15:59 Last Admin: 11/15/21 16:03 Dose: 2.5 mg (1) Rheumatoid arthritis Rheumatoid arthritis location: unspecified site Rheumatoid factor presence: unspecified presence Qualified Code(s): M06.9 - Rheumatoid arthritis, unspecified
[2021-11-18] MEDS: LEFLUNOMIDE 10 MG TAB PO SCH (12:34)
[2021-11-18] MEDS: ACETAMINOPHEN 325 MG TAB PO PRN (20:18)
[2021-11-18] MEDS: amLODIPine BESYLATE 5 MG TAB PO SCH (20:19)
[2021-11-18] MEDS: SENNA 8.6 MG TAB PO SCH (20:22)
[2021-11-19] MEDS: LEVOTHYROXINE SODIUM 50 MCG TABLET PO SCH (05:45)
[2021-11-19] MEDS: EZETIMIBE 10 MG TABLET PO SCH (07:38)
[2021-11-19] MEDS: FOLIC ACID 1 MG TAB PO SCH (07:38)
[2021-11-19] MEDS: ADVANCED PROBIOTIC 1250 MG CAPSULE PO SCH (07:38)
[2021-11-19] MEDS: predniSONE 5 MG TAB PO SCH (07:38)
[2021-11-19] MEDS: MULTIVITAMIN TAB PO SCH (07:38)
[2021-11-19] MEDS: DIVALPROEX DELAY RELEASE 250 MG TABEC PO SCH (07:39)
[2021-11-19] MEDS: METOPROLOL SUCC 50MG EXT REL TAB PO SCH (07:39)
[2021-11-19] MEDS: FERROUS SULFATE 325 MG TAB PO SCH (07:39)
[2021-11-19] MEDS: CYANOCOBALAMIN (B-12) 500 MCG TABLET PO SCH (07:39)
[2021-11-19] MEDS: PANTOprazole 40 MG TAB PO SCH (07:39)
[2021-11-19] MEDS: DOCUSATE SODIUM 100 MG CAP PO SCH (07:40)
[2021-11-19 08:59] LABS: INR 2.6 (0.9-1.1); Prothrombin Time 26.6 Seconds (9.0-12.0)
--- NOTE | 2021-11-19 10:00 | Discharge Summary ---
Date of Service November 19, 2021 Admission HPI Per Admitting Provider This is an 80-year-old female who has a significant past medical history of CAD, history of aortic stenosis status post TAVR, HTN, HLD, INA, rheumatoid arthritis on leflunomide and chronic prednisone therapy, chronic anemia, CKD stage III, history of PE/DVT anticoagulated on warfarin who presents to ED 2/2 worsening L knee redness and concern for infection. She lives at [facility]. Staff at [facility] felt her L knee has been getting worse and more red. Patient was recently confined 10/26-10/30/21 due to AMS, polypharmacy and supratherapeutic INR. She denies any significant L knee pain or difficulty walking. She denies f/c/s, dizziness, lightheaded, RUEDA, chest pain, sob, cough, n/v/d, abd pain, change in bowel or urinary habits. She denies any acute complaints. Of significance patient has prior history of left total knee arthroplasty. On September 14 she had a hematoma drained. A drain remained in place and had since been removed. The location of the drain site never healed over. The surrounding area has been becoming increasingly more swollen and erythematous. There is also a notable ulceration superior to the knee. Patient denies difficulty walking or pain. CT was obtained in ER which revealed evidence for soft tissue ulceration with underlying deep subcutaneous fluid collection most characteristic of an abscess. This is separate from the patient's total knee prosthesis with no definitive evidence for communication with the joint. A small to moderate joint effusion is also noted. In ED patient remained hemodynamically stable and did not meet sepsis criteria. Her CRP was elevated at 3.82 and ESR is still pending. Admission Exam Per Admitting Provider VS noted and reviewed General- oriented x 2-3, not in distress, speaks in sentences with no effort or accessory muscle use Head- atraumatic Eyes- PERRL, EOMI, anicteric ENT- oropharynx clear Neck- supple, no JVD, no adenopathy, no thyromegaly; carotids +2/2, no bruits appreciated Lungs- clear to auscultation bilaterally, no rales/wheezes Heart- normal rate, regular rhythm; no murmur, no gallop, no rub appreciated Abdomen- normal bowel sounds, nondistended, soft, nontender, no masses or hepatosplenomegaly Extremities- LLE: knee- (+) moderate erythema, edema, dry ulcer, mild tenderness lower leg- moderate edema, mild warmth RLE: mild edema, no calf tenderness, no erythema; peripheral pulses intact Neuro- alert, oriented x 2-3; CN 2-12 grossly intact; motor 5/5 bilaterally;sensation 100% on all extremities; no other gross focal neurologic deficits Skin- warm & dry Principal Diagnosis Left knee cellulitis Abscess of left knee Observed seizure like activity Acute encephalopathy Discharge Exam GENERAL: Alert and awake. NAD, on RA. Chronically ill appearing. HEENT: No pallor, no icterus. Pupils equal, round and reactive to light. Oral mucosa moist. NECK: No JVD, no neck masses. HEART: S1 and S2 heard. Regular rate and rhythm. No murmur, no gallop. RESPIRATORY SYSTEM: Normal AP diameter. No accessory muscle use. No wheezing, no crackles. ABDOMEN: Soft, bowel sounds present, nontender, no distention. CENTRAL NERVOUS SYSTEM: No facial droop. Speech is clear. Obeys simple commands. Moves extremities. EXTREMITIES: Trace BLE edema, no erythema seen. Left knee w/ clear incision w/o s/s of infection and soakage. Discharge Data Allergies Allergy/AdvReac Type Severity Reaction Status Date / Time baclofen Allergy Mild DIZZY Verified 11/07/21 18:53 Penicillins Allergy Mild RASH Verified 11/07/21 18:53 Sulfa (Sulfonamide Allergy Mild HEADACHE Verified 11/07/21 18:53 Antibiotics) Consultations 11/07/21 18:28 ED Decision to Admit Stat 11/07/21 18:34 Consult Orthopedic Surgery Routine 11/07/21 19:32 Consult Infectious Diseases Routine 11/10/21 11:00 Consult Neurology Routine Procedures Performed Operation Date: 11/09/21 09:30 Actual Procedures p Incision and Drainage Left Medial Knee Abscess, Debridement of Left Medial Knee Ulcers(Left) - Fab Aldana DO Ordered Studies 11/07/21 17:32 CT knee LT wo con Stat 11/10/21 06:34 CT head/brain wo con Urgent 11/14/21 08:03 MRI Brain [MR brain wo/w con] Urgent Hospital Course (1) Cellulitis of left knee: (2) Cutaneous abscess of left knee: (3) CAD (coronary artery disease): (4) S/P TAVR (transcatheter aortic valve replacement): (5) Rheumatoid arthritis: (6) Chronic anemia: (7) Obstructive sleep apnea: (8) Hx pulmonary embolism: Plan Per Dr. Gonzáles's note w/ addendum: This is an 80-year-old female who has a significant past medical history of CAD status post TYLER x2 to mid LAD 03/18/2020, history of aortic stenosis status post TAVR March 2021, HTN, HLD, INA on 2 L of O2 at at bedtime, rheumatoid arthritis on leflunomide and chronic prednisone therapy, chronic anemia, CKD stage III, history of PE/DVT in 2017 anticoagulated on warfarin who presents to ED 2/2 worsening L knee redness and concern for infection. Cellulitis of left knee Abscess of left knee Left knee has been becoming increasingly more red, swollen and warm. Patient does not meet criteria for SIRS or sepsis. She had left knee hematoma drained back in August. CT left knee showed Evidence for soft tissue ulceration with underlying deep subcutaneous fluid collection most characteristic of an abscess. small to moderate-sized joint effusion. Continue IV abx cefepime and daptomycin Ortho on board plan for incision and drainage fluid collection left medial knee whether it be a seroma or abscess will be cultured at that time. Left knee wound culture came back negative Discussion with the ID has been ongoing for use of suggested antibiotic and duration Awaiting ID recommendation about the duration and type of antibiotic If no response from the ID physician will go with oral Levaquin for a course of a total of 2 weeks duration Wound looks much better with minimal inflammation around Started on oral Keflex-Levaquin was not given because of side effect profile Appreciate Ortho and wound care evaluation Stitches will come out in due time She will be seen by Dr. Aldana in 1 week for stitch removal Status postincision and drainage, left knee medial abscess. POD #4 on 11/12/2021 2. Debridement of left knee medial ulcer 1.2 cm x 1.2 cm x 0.6 cm including skin, dermis, subcutaneous tissue, and fascia. 3. Irrigation and debridement of left medial knee ulcer measuring 1.9 cm x 1.9 cm x 0.8 cm including skin, dermis, subcutaneous tissue, and fascia. ID on board recommended to change cefepime to meropenem for possible neurotoxicity Continue with Daptomycin Blood cx no growth for now Wound cx grew pin-point present , reincubating-negative culture Will continue intravenous meropenem for another 24 hours Will get ID recommendations for further issues with antibiotic Meropenem has been discontinued and daptomycin is continued for the time being Movement of the left knee joint did not produce any pain Left knee is much better and the wound is seems to be healing Oral antibiotic will be continued for a total of 7 days Observed seizure-like activity: Acute encephalopathy: CT head showed no acute intracranial abnormality EEG was markedly abnormal. There was slowing of the background activity consistent with a moderate encephalopathy, and there was generalized potentially epileptogenic activity seen throughout. Neuro on board -appreciate input and recommendation Loading dose Keppra given yesterday and he was starting on Keppra 750mg BID No significant improvement in the tremor after starting keppra dose Keppra changed to Valproic acid Will check the valproic acid level No more seizures observed following administration of Depakote Will change Depakene to 500 mg IV every 6 hourly Monitor Depakote level daily and monitor CBC and electrolytes Much improved and trying to communicate normally MRI of the brain has been negative for any infection and/or stroke Depakote level is 39-we will continue current dose of Depakote Surprisingly Depakote level came back at more than 200 today-we will repeat the level stat and hold IV Depakote for now Patient remains free of any symptoms Discussed with Dr. Herrera and the Depakote will be given 750 mg twice daily Will have appointment with neurology as an outpatient CAD status post TYLER 03/18/2020 History of TAVR in March 2021 Chronic diastolic heart failure HTN HLD Patient's volume status compensated She denies chest pain or shortness of breath EKG without change Holding Plavix in setting of likely procedure, resume when okay with Ortho Holding statin in setting of daptomycin, resume when able pt refused metoprolol and amlodipine Continue IV lopressor for now while not able to take po intake Rheumatoid arthritis On chronic prednisone therapy as well as leflunomide Previous admissions and discharge summaries reflect patient taking methotrexate Methotrexate is currently not on patient's med reconciliation from [facility] and this was confirmed with facility per external pharmacy looks like last prescribed 10/17/21, therefore not sure where it may have dropped off but may need to be determined if pt needs to be on this medication or not for her RA Will try to reach her rheumatology to confirm if pt is taking the Methotrexate Pt refused her Prednisone yesterday and today. received stress dose steroid INA on 2L O2 at HS Hypothyroidism continue levothyroxine Chronic Anemia hgb dropped to 8. 5 not sure if dilutional hgb today 7.8 today with baseline ~ 10 Continue monitor H/H closely Stable CKD -3 Hgb 0.8 avoid nephrotoxic agents Stable Hx of PE/DVT in 2017 on halfway warfarin therapy Vitamin K given on admission INR 1.1 today Resume Coumadin, but patient NPO Consider to start on IV heparin if continue to be unresponsive and hgb stable INR has been running high and it is 4.1 today We will hold Coumadin and recheck INR in 2 days and restart accordingly Dispo: medical, likely to return back to [facility] FULL CODE DVT px will add on heparin sub. PCP: Shereen Discussed with the son Likely to be discharged this afternoon Addendum 11/19: Pt completed antibiotic for Left knee infection/cellulitis, Knee looks good on exam. For seizure like activity, patient is started on Depakote which patient will be discharged on. Pt to continue other home meds. Pt to adhere w/ instruction provided at discharge. Total Time Total Time Spent Total Time Spent (In Minutes): 35 Discharge Plan Discharge Items Patient Disposition: Transfer Intermediate Fac Reason For Visit: R KNEE CELLULITIS Discharge Diagnosis: Left knee cellulitis, acute metabolic encephalopathy-resolved, seizure disorder, CAD status post TAVR, rheumatoid arthritis, history of PE/DVT on Coumadin Condition on Discharge: Good Activity: As commented below Activity Comment: Will need PT and OT evaluation Non-emergency contact: Primary Care Provider Call non-emergency contact if: you have any medication questions Follow-up/Referrals: Fab Aldana DO [Surgeon] - (Follow up in 2 weeks from the day of surgery for a wound check and suture removal. ) Shannon Jimenez PA-C [Physician Communications Strategist] - 12/02/21 9:45 am ([facility] [place] [id number] ) [facility] [Primary Care Provider] - Diet: Regular Diet Comment: Minced and moist Addtl Attending Provider Instructions: Please take precautions to avoid falls Take your medications as advised Do not take any Coumadin for tomorrow (11/19/2021) and have an INR checked on day after tomorrow and take Coumadin as per advice from the physician Your Plavix has been discontinued Addtl Golf Tournament Consultant Provider Instructions: Daily dressing changes. WBAT on LLE Follow up with Dr. Aldana in 2 weeks for wound check. Pending Studies at Discharge: No Stand-Alone Forms: [facility] Skilled Items Patient informed of condition?: Yes DNR: Yes Discharge Level of Care: Skilled Communicable Disease: No Discharge Prognosis: Stable Lines: None Urinary Catheter: No Medications and DC Order Prescriptions: New divalproex 250 mg Tablet,Delayed Release (Dr/Ec) 750 mg PO BID Qty: 120 0RF Continued atorvastatin 40 mg tablet 40 mg PO QAM metoprolol succinate 50 mg tablet extended release 24 hr 50 mg PO BID folic acid 1 mg Tablet 2 mg PO QAM pantoprazole 40 mg tablet,delayed release (DR/EC) 40 mg PO QAM ezetimibe 10 mg tablet 10 mg PO QAM leflunomide 20 mg tablet 20 mg PO DAILY@1200 ferrous sulfate 325 mg (65 mg iron) tablet 325 mg PO BID levothyroxine 50 mcg tablet 50 mcg PO QAM acetaminophen 325 mg Tablet 650 mg PO Q4H PRN (Reason: pain) Qty: 30 0RF mirtazapine 15 mg Tablet 15 mg PO HS Qty: 30 0RF tramadol 50 mg Tablet 25 mg PO Q6H PRN (Reason: pain (scale score 7-10)) Qty: 20 0RF warfarin 2.5 mg Tablet 1.25 mg PO TuTh@1600 Qty: 30 0RF warfarin [Jantoven] 2.5 mg Tablet 2.5 mg PO SuMoWeFrSa@1600 Qty: 30 0RF amlodipine [Norvasc] 5 mg Tablet 5 mg PO HS Qty: 30 1RF cyanocobalamin (vitamin B-12) 500 mcg Tablet 500 mcg PO DAILY prednisone 5 mg tablet 5 mg PO DAILY Discontinued clopidogrel 75 mg tablet 75 mg PO QAM Discharge Orders: Discharge Order (Routine); Ordered 11/19/21 Ordered By: Gretta Gastelum Admission Data Admit Date/Time: 11/07/21 18:34 Attending Provider: Gretta Gastelum Admit Provider: Fab Aldana Primary Care Provider: [facility] Other Providers: Dm Smith ; Gilbert Maloney ; Fab Aldana ; Chiki He ; Ashu Downs ; Rick Jaramillo I. ; Nilson Briscoe II ; Camelia Valdes ; Abimael Ellis ; Liang Nazario ; Surendra Perez ; Miguel Gonzáles ; [place]
== END 2021-11-19 10:55 | DRG 571 ==
LOC: ED 14:19 → SUATTDRO 18:34 → 3N 18:34 → 2W 11-09 17:50